=== PATIENT | female | born 1945 | race Caucasian/White ===

== ENCOUNTER 2018-03-02 07:09 | Day surgery (SDC) | payer MEDICARE, OTHER, SELFPAY ==
[2018-03-02] VITALS (9 sets, daily range): BP systolic 84–130; BP diastolic 49–67; PULSE 54–74; RESP 16; TEMP 36.1–36.6; O2SAT 96–100; BMI 37.8
--- NOTE | 2018-03-02 08:37 | PCM.OPRPT ---
Problem List (1) Sigmoid diverticulitis Status: Chronic Report of Operation Date of Procedure: 03/02/18 Pre-Operative Diagnosis: Recurrent sigmoid diverticulitis. Personal history of colon polyp Post-Operative Diagnosis: Extensive sigmoid diverticulosis Surgery/Procedure Performed:: Colonoscopy Description of Surgical Findings:: Timeout informed consent was obtained. 72-year-old female was taken to the endoscopy suite. She was placed in a left lateral decubitus position. She underwent monitored anesthesia care. Digital rectal exam performed. Lax anal tone. Moderate hemorrhoidal changes. Flexible colonoscope inserted the rectum advanced through a somewhat tortuous sigmoid colon scope was then nicely advanced to the transverse colon and with transabdominal pressure is advanced into the ascending colon and cecum. Bowel prep was quite good. The cecum ileocecal valve area was nicely achieved. The scope was carefully withdrawn from the cecum ascending colon transverse colon and descending colon. The sigmoid colon had extensive diverticulosis. I did not see any signs of acute inflammation. The scope was withdrawn to the rectum retroflex the anorectal verge inspected this did not appear to be remarkable. Excess fluid and air was aspirated free the procedure was completed with the patient tolerating it well. Impression Extensive sigmoid diverticulosis Patient with a history of multiple bouts of recurrent diverticulitis with subsequent antibiotic induced C. difficile colitis with recurrence of that as well. Consideration for possible future lap scopic sigmoid colectomy pending further rehabilitation Scope was inserted 0824. Cecum was reached at 0829. The procedure was completed at 0833. Cc: Dr. Omaira Maravilla M.D., F.A.C.S. Type of Anesthesia:: MAC
[2018-03-02 08:55] LABS: Bedside Glucose 177 mg/dL (70-110)
== END 2018-03-02 09:56 | disposition home or self-care (01) ==
LOC: EN 07:10 → AC 07:11
PROVIDERS: Family Provider Internal Medicine; PCP Internal Medicine; Visit Provider Surgery
PROC: 0DJD8ZZ Inspection of Lower Intestinal Tract, Via Natural or Artificial Opening Endoscopic (ICD-10-PCS; CPT 45378; principal; 2018-03-02 08:10)
DX: K57.30 Diverticulosis of large intestine without perforation or abscess without bleeding (principal); K56.2 Volvulus; E11.9 Type 2 diabetes mellitus without complications; F41.9 Anxiety disorder, unspecified; E78.00 Pure hypercholesterolemia, unspecified; I48.91 Unspecified atrial fibrillation; J45.909 Unspecified asthma, uncomplicated; K21.9 Gastro-esophageal reflux disease without esophagitis; R01.1 Cardiac murmur, unspecified; I11.9 Hypertensive heart disease without heart failure; M19.90 Unspecified osteoarthritis, unspecified site; Z95.1 Presence of aortocoronary bypass graft; Z87.19 Personal history of other diseases of the digestive system; Z90.49 Acquired absence of other specified parts of digestive tract; Z86.19 Personal history of other infectious and parasitic diseases; Z87.891 Personal history of nicotine dependence; Z79.4 Long term (current) use of insulin; Z79.01 Long term (current) use of anticoagulants; Z79.82 Long term (current) use of aspirin; Z79.899 Other long term (current) drug therapy
CPT/HCPCS: 45378; 82962; J7120

== ENCOUNTER 2018-04-16 05:26 | Inpatient (IN) | payer MEDICARE, OTHER, SELFPAY ==
[2018-04-09 15:32] VITALS: BP 129/56; PULSE 54; RESP 18; TEMP 36.4; O2SAT 97; BMI 38.7
[2018-04-09 17:06] LABS: Absolute Lymphocyte Count 2.05 X10^3/ul (0.83-4.51); Absolute Neutrophil Count 6.3 X10^3/uL (2.0-7.7); Basophil# 0.03 X10^3/uL; Basophil% 0.3 % (0-1); Eosinophil# 0.22 X10^3/uL; Eosinophils% 2.3 % (0-5); Hematocrit 39.1 % (37-47); Hemoglobin 12.9 g/dl (12.0-15.0); Lymphocyte # 2.05 X10^3/ul (4.0); Lymphocyte % 21.6 % (19-41); Mean Corpuscular Hgb 30.9 pg (27.0-32.0); Mean Corpuscular Volume 93.8 fL (81-99); Mean Platelet Vol. 10.2 fl (6.2-12.0); Monocyte# 0.84 X10^3/uL; Monocyte% 8.9 % (0-10); Neutrophil # 6.32 X10^3/uL (2.7-7.7); Neutrophil % 66.7 % (47-70); Platelet Count 195 K/mm3 (150-450); RBC Distribution Width CV 14.8 % (11.6-14.6); RBC Distribution Width SD 50.1 fl (35.1-43.9); Red Blood Count 4.17 M/mm3 (4.2-5.4); White Blood Count 9.5 K/mm3 (4.4-11.0)
[2018-04-09 17:07] LABS: International Normalized Ratio 2.6; Partial Thromboplast Time 38.8 Seconds (24.1-36.2); Prothrombin Time (Protime)PT. 27.6 SECONDS (11.7-14.9)
[2018-04-09 17:09] LABS: POSITIVE COUNT NO; POSITIVE DIFFERENTIAL NO; POSITIVE MORPHOLOGY NO
[2018-04-09 17:25] LABS: AST(SGOT) 26 U/L (15-37); Alanine Aminotransfer ALT/SGPT 33 U/L (13-56); Albumin, Serum 3.4 g/dL (3.2-5.0); Alkaline Phosphatase 113 U/L (45-117); Anion Gap 6 (5-15); BUN 23 mg/dL (7-18); BUN/Creat Ratio 23.1 RATIO (10-20); Bilirubin, Direct 0.28 mg/dL (0.00-0.30); Calcium,Total 9.1 mg/dL (8.5-10.1); Chloride 106 mmol/L (98-107); EST Glomerular Filtration Rate 58 mL/min (>60); Est Glom Filt Rate - Afr Amer 71 mL/min (>60); Estimated Creatinine Clearance 37.06 ml/min; Globulin 3.9 g/dL (2.2-4.2); Glucose 104 mg/dL (74-106); Potassium 3.9 mmol/L (3.5-5.1); Protein, Total 7.3 g/dL (6.4-8.2); Sodium Level 140 mmol/L (136-145)
[2018-04-09 17:54] LABS: Hemoglobin A1c 6.1 % (4.2-6.3)
[2018-04-16] VITALS (13 sets, daily range): BP systolic 103–132; BP diastolic 47–70; PULSE 65–86; RESP 14–18; TEMP 36–36.9; O2SAT 96–100; BMI 38.7
--- NOTE | 2018-04-16 | COL_PTH ---
PATIENT: CARMEN HARVEY LOC: MS2 U#:[id number] AGE/SX: 72/F ROOM: [facility] [place] RE04/16/[address]: Dr. Carlos Maravilla MD : 1945 BED: 1 DIS: 04/18/2018 SPEC #: [id number] RECD: 04/16/18 14:41 STATUS: RUTH REQ #: [id number] PEE: 04/16/18 00:[address]: Carlos Maravilla DEPT: SURGICAL PATHOLOGY RECD BY: Familia Barrera ENTERED: 04/16/18 14:41 SP TYPE: COLON OTHR DR: MD Dr. Lorena Zafar MD Tissues: A - Colon, NOS B - Colon Donuts C - Colon Donuts Procedures: Surgery Specimen Level III Surgery Specimen Level V HEADER OPERATION: Laparoscopic, sigmoid colectomy PRE-OP DIAGNOSIS: Chronic recurrent sigmoid diverticulitis, recurrent clostridium difficile TISSUE SUBMITTED: A. Sigmoid colon, B. Rectal donut, C. Sigmoid donut MICROSCOPIC DIAGNOSIS A. Sigmoid colon, segmental colectomy: Nonruptured diverticular disease of colon. Margins of excision with no significant pathologic change. One out of one benign lymph node. B. Rectal donut, excision: No significant pathologic change. C. Sigmoid donut, excision: No significant pathologic change. AM: 04/19/18 MICROSCOPIC DESCRIPTION Slides are reviewed. GROSS DESCRIPTION A - Received in fixative is one container labeled with the patient's name and designated sigmoid colon. The specimen consists of a 16 cm segment of bowel with attached fibrofatty tissue. One end is stapled and the other mucosal end is not stapled. The mucosa is thrown into normal folds. No mucosal mass lesions are identified. / AM: 04/16/18 Serial sections reveal multiple diverticula, none of which appear to have perforated through the bowel wall. Aircraft Maintenance Manager sections are submitted as follows: 1 ? open end of bowel, 2 ? closed end of bowel, 36 ? diverticula, 7 ? retail representative lymph nodes. / AM: 04/17/18 B - Received in fixative is one container labeled with the patient's name and designated rectal donut. The specimen consists of a mucosal donut measuring 1.5 x 1 x 0.8 cm. The specimen is bisected and totally submitted in one cassette. / AM: 04/16/18 C - Received in fixative is one container labeled with the patient's name and designated sigmoid donut. The specimen consists of a mucosal donut measuring 1.5 cm in diameter and 1 cm in thickness. Aircraft Maintenance Manager sections are submitted in one cassettes. / YAZMIN:shital 04/16/18 TC:3 CPT: 65354, 35683 x2
[2018-04-16] MEDS: Gabapentin 600 MG Tablet PO (06:03)
[2018-04-16] MEDS: Acetaminophen 500 MG Tablet 1000 MG PO ×2 (06:03→15:44)
[2018-04-16 06:06] LABS: Bedside Glucose 237 mg/dL (70-110)
[2018-04-16 06:21] LABS: Prothrombin Time Fingerstick 14.7 SEC (11.9-14.4)
[2018-04-16] MEDS: Insulin Lispro 100 UNIT/ML INSULN.PEN SC ×2 (06:44→11:31)
[2018-04-16] MEDS: Bupivacaine Mpf 0.5% 30 ML VIAL (06:59)
--- NOTE | 2018-04-16 07:04 | PCM.DC.GS ---
Discharge Diet: Light diet - advance as tolerated - if you have questions about your diet instructions, please talk to you doctor. Discharge Activity: May Not Drive - for 1 week or while taking narcotic pain medicine. May shower in (days): 1 Lifting Restrictions: 10 pounds Call your doctor if your incision/area has: Continuous Slow Oozing, Sudden Increased Bleeding, Increased Pain/ Swelling, Increased Redness, Foul Smelling Discharge Call your doctor if you observe: Fever of 101 or Higher Suture Line Care: Avoid Pulling/Pushing, Avoid Pinching/Bending Additional Dressing/Incision Instructions:: Change or remove dressing in 2 days. Leave steri-strips in place for 1 week. Allergies/Adverse Reactions: Allergies codeine Allergy (Unknown, Verified 04/09/18 15:16) Unknown hydrocodone [From [place]] Allergy (Unknown, Verified 04/09/18 15:16) Unknown Iodinated Contrast- Oral and IV Dye Allergy (Unknown, Verified 04/09/18 15:16) Unknown morphine Allergy (Unknown, Verified 04/09/18 15:16) Unknown nitrofurantoin [From Macrodantin] Allergy (Unknown, Verified 04/09/18 15:16) Unknown tramadol Allergy (Unknown, Verified 04/09/18 15:16) Unknown Medications to take at Discharge ascorbic acid (vitamin C) 250 mg tablet 250 mg PO QDAY 12/22/17 aspirin 81 mg tablet,delayed release 81 mg PO QDAY 12/22/17 atorvastatin 40 mg tablet 40 mg PO QDAY 12/22/17 biotin 2,500 mcg capsule 5 mg PO ONCE cap 12/22/17 calcium carbonate-vitamin D3 600 mg (1,500 mg)-500 unit capsule 1,500 mg PO DAILY 12/22/17 famotidine 10 mg tablet 10 mg PO BID tab 12/22/17 folic acid 400 mcg tablet 0.4 mg PO QDAY 12/22/17 insulin NPH human semi-synthetic 100 unit/mL subcutaneous cartridge 50 unit SC BID 12/22/17 insulin U-100 regular human 100 unit/mL injection solution 5 unit IM PRN PRN 12/22/17 lactobacillus combination no.9 4 billion cell capsule 4,000 mmu cells PO QDAY 12/22/17 lorazepam 0.5 mg tablet 0.5 mg PO BID-TID 12/22/17 losartan 100 mg tablet 100 mg PO QDAY 12/22/17 magnesium oxide 400 mg capsule 400 mg PO QDAY cap 12/22/17 montelukast 10 mg tablet 10 mg PO QPM 12/22/17 potassium chloride 20 mEq oral packet 20 meq PO BID 12/22/17 pyridoxine (vitamin B6) 50 mg capsule 50 mg PO QDAY 12/22/17 sotalol 120 mg tablet 120 mg PO Q12H 12/22/17 triamterene 50 mg-hydrochlorothiazide 25 mg capsule 1 cap PO QDAY 12/22/17 vitamin B complex tablet 1 tab PO QDAY 12/22/17 warfarin 1 mg tablet 1 mg PO QDAY 12/22/17 warfarin 2.5 mg tablet 2.5 mg PO QDAY 12/22/17 sucralfate 1 gram tablet 1 g PO Q6H 03/28/18 Primary Care Physician: Marichuy Castano [Primary Care Provider] - Test Results: Test results from this visit will be discussed in further detail at your follow-up appointment, if applicable. Please Follow Up With: Carlos Maravilla MD - [phone] When: Call to make an appointment to be seen in about 10 days.
[2018-04-16] MEDS: Lidocaine/D5W 2,000 MG/250 ML IV.SOLN 27 MG IV (07:15)
[2018-04-16] MEDS: Lidocaine/D5W 2,000 MG/250 ML IV.SOLN 2000 MG (07:50)
--- NOTE | 2018-04-16 07:59 | PCM.OPRPT ---
Report of Operation Date of Procedure: 04/16/18 Pre-Operative Diagnosis: Recurrent diverticulitis Post-Operative Diagnosis: Same Surgery/Procedure Performed:: Cystoscopy and placement of a left ureteral catheter Description of Surgical Findings:: 72-year-old female was undergoing a colon resection for recurrent diverticulitis, general surgeon is requested to place a catheter in the left ureter to assist with the case. 72-year-old female taken back to the operating of this with induction of general anesthesia she was placed in dorsolithotomy position the urethra and vaginal area were prepped and draped in usual fashion, went into the bladder the 21 Irish rigid cystourethroscope no tumors identified within the bladder trigone is normal I think cannulated the left ureteral orifice with a Glidewire and a Pollack catheter, advanced the Pollack catheter all the way up to the kidney about 20 cm. I then put a catheter in the bladder drain the bladder secured the Pollack catheter to the drain. Patient was then turned over to the general surgeon. Type of Anesthesia:: General Drains: ureteral cath - Admit VTE Documentation VTE Present on Admission: No VTE Mechan Device Prophylaxis: SCD's
[2018-04-16] MEDS: Lubricating Jelly 60 GM Tube 30 GM TOPICAL (09:11)
[2018-04-16 09:16] LABS: Bedside Glucose 190 mg/dL (70-110)
[2018-04-16] MEDS: BUPIVACAINE LIPOSOME/PF 20 ML VIAL OPERA.SITE (10:35)
--- NOTE | 2018-04-16 10:48 | OP.PCM_ITS ---
Problem List (1) Sigmoid diverticulitis Status: Chronic Report of Operation Date of Procedure: 04/16/18 Pre-Operative Diagnosis: Recurrent diverticulitis Post-Operative Diagnosis: Same Surgery/Procedure Performed:: Laparoscopic sigmoid colectomy Description of Surgical Findings:: Timeout and informed consent was obtained. 72-year-old female taken the operating. She was placed in a low lithotomy position. She received 2 g of Cefotan [address] Short performed a cystoscopy and left ureteral catheter placement. Subsequently the abdomen and perineum were prepped. ChloraPrep was used for the abdomen and shampoo was used for the perineum because of iodine allergy. Her plastic drapes were placed to assist with holding of the drapes. 0.5% Marcaine was used as a local anesthetic of the procedure total 16 cc was used. Skin sites were pre-anesthetized. To the right of the umbilicus 5 mm incision was created and using a Visiport technology access was gained to the abdomen. The abdomen was insufflated CO2 to a pressure 10 mmHg pressure. 2 additional five-minute trochars were placed in the right lower quadrant. Later in the case I made a transverse suprapubic incision and a 10 minute trocar was placed. The abdomen was inspected there were dense adhesions of omentum to the anterior abdominal wall in the infraumbilical position. These had to initially be lysed using the Enseal device. Hemostasis was intact. This allowed for mobilization of the omentum then up out of the pelvis. The sigmoid colon had some adhesions to the left pelvic sidewall. Scalp at the site of inflammation was more in the mid sigmoid colon descending and more proximal sigmoid colon appear to be free of disease. The small bowel was placed back up higher in the abdomen is the patient was placed in Trendelenburg position. A opening was made in the sigmoid colon mesentery using the Enseal device. Great care was then taken to incise the white line of Toldt all the way from the pelvis all the way up to the left upper quadrant. I felt at this point that I had good laxity of the sigmoid colon to allow for an appropriate resection. The mesenteric dissection was carried down to the pelvic brim. Through the suprapubic trocar a 45 mm green load Newborn stapler was inserted and with 1 firing the bowel was transected. Hemostasis was intact. Subsequently the transverse suprapubic incision was slightly enlarged and a small wound protector was placed. The sigmoid colon was exited at that spot. An appropriate point the sigmoid colon was transected. A lip suture of 2-0 Prolene was placed in the end of the sigmoid and then a 29 mm circular anastomotic stapler anvil was inserted and secured with Prolene. That was struck back within the abdomen. The rectum was irrigated with saline. Then using sizers was plenty of lubrication allowed for inspection and I was able to place the 29 mm stapler per rectum. The staple line was more posteriorly so I exited through the anterior portion of the rectum was sigmoid area. The trocar was exited. It was easily attached to the anvil absolutely no tension tube. The tube were nicely approximated. The device was fired. The device was released the donuts were inspected complete rectal and sigmoid donuts were identified. Rigid sigmoidoscopy demonstrated that the anastomosis was widely patent. Air was insufflated with absolutely no evidence of any air leak. At this point trochars were removed under visualization and the abdomen was allowed to deflate of the CO2. Gowns and gloves were changed. The suprapubic site which had been lengthened to a small mini Pfannenstiel incision earlier with transection of the rectus transversely and then the posterior peritoneum vertically was now approximated in reverse order approximately the peritoneum with a running 0 Vicryl. The anterior rectus was closed with a running 0 PDS. It is of additional note that during the initiation of the procedure a tap block was performed before any dissection was formed. This was done with Exparel diluted to 100 cc with saline. This was performed bilaterally. [place] that I had good block performed bilaterally all the way down to the issue. Remaining Exparel was used to inject at the end of the procedure around the fascia at the suprapubic site and then insights as well. The skin wounds were closed with interrupted 4-0 Monocryl running subcuticular stitch and interrupted sutures. Steri-Strips Telfa and OpSite dressings were applied. Sponge and instrument and needle counts were reported to the surgeon to be correct. Blood loss was actually quite minimal. Specimens include sigmoid colon as well as donuts. Drains none. Blood loss quite minimal. She was taken to the recovery area in satisfactory condition without apparent complication. Carlos Maravilla M.D., F.A.C.S. Type of Anesthesia:: General Anesthesiologist: Tangela Rushing Drains: ureteral cath
[2018-04-16 11:35] LABS: Bedside Glucose 226 mg/dL (70-110)
--- NOTE | 2018-04-16 13:02 | PCM.CONS.GEN ---
Problem List (1) Sigmoid diverticulitis Status: Chronic Reason for Consult Date of Consultation: 04/16/18 Reason for Consultation: medical management History of Present Illness: The patient is a 72 year old F with a history of diverticulosis, A. fib, hypertension diabetes. She was admitted for laparoscopic sigmoidectomy due to severe diverticulitis and also had cystoscopy with placement of ureteral stent. Today's postop day 0. Hospitalist service was consulted for medical management. Patient seen and examined. She had no complaints. Daughter and by her bedside. She denied any fever or chills, any cough or chest pain, any shortness of breath, abdominal pain, any diarrhea vomiting. 12 point Review of systems is otherwise negative. Labs and vitals were reviewed. Coumadin was stopped 5 days prior to admission and she did not receive any bridging with Lovenox. [] Past Medical History Past Medical History (Chronic Problems): Chronic Problems (Last Reviewed 03/28/18 @ 15:47 by Yeimy Everett) Sigmoid diverticulitis (Chronic) Medical History: Medical History (Last Reviewed 03/28/18 @ 15:47 by Yeimy Everett) Diverticulitis (Acute) K57.92 Hx of Clostridium difficile infection (Acute) Z86.19 Hemorrhoids (Acute) K64.9 Acid reflux (Acute) K21.9 Diarrhea (Acute) R19.7 Nausea (Acute) R11.0 Asthma (Acute) J45.909 Sleep apnea (Acute) G47.30 A-fib (Acute) I48.91 Heart disease (Acute) I51.9 Heart murmur (Acute) R01.1 Arthritis (Acute) M19.90 Back problem (Acute) M53.9 Diabetes (Acute) E11.9 Fatigue (Acute) R53.83 Allergies codeine Allergy (Unknown, Verified 04/09/18 15:16) Unknown hydrocodone [From [place]] Allergy (Unknown, Verified 04/09/18 15:16) Unknown Iodinated Contrast- Oral and IV Dye Allergy (Unknown, Verified 04/09/18 15:16) Unknown morphine Allergy (Unknown, Verified 04/09/18 15:16) Unknown nitrofurantoin [From Macrodantin] Allergy (Unknown, Verified 04/09/18 15:16) Unknown tramadol Allergy (Unknown, Verified 04/09/18 15:16) Unknown Home Medications: Ambulatory Orders Medication Instructions Recorded ascorbic acid (vitamin C) 250 mg 250 mg PO QDAY 12/22/17 tablet aspirin 81 mg tablet,delayed 81 mg PO QDAY 12/22/17 release atorvastatin 40 mg tablet 40 mg PO QDAY 12/22/17 biotin 2,500 mcg capsule 5 mg PO ONCE cap 12/22/17 calcium carbonate-vitamin D3 600 1,500 mg PO DAILY 12/22/17 mg (1,500 mg)-500 unit capsule famotidine 10 mg tablet 10 mg PO BID tab 12/22/17 folic acid 400 mcg tablet 0.4 mg PO QDAY 12/22/17 insulin NPH human semi-synthetic 50 unit SC BID 12/22/17 100 unit/mL subcutaneous cartridge insulin U-100 regular human 100 5 unit IM PRN PRN 12/22/17 unit/mL injection solution lactobacillus combination no.9 4 4,000 mmu cells PO QDAY 12/22/17 billion cell capsule lorazepam 0.5 mg tablet 0.5 mg PO BID-TID 12/22/17 losartan 100 mg tablet 100 mg PO QDAY 12/22/17 magnesium oxide 400 mg capsule 400 mg PO QDAY cap 12/22/17 montelukast 10 mg tablet 10 mg PO QPM 12/22/17 potassium chloride 20 mEq oral 20 meq PO BID 12/22/17 packet pyridoxine (vitamin B6) 50 mg 50 mg PO QDAY 12/22/17 capsule sotalol 120 mg tablet 120 mg PO Q12H 12/22/17 triamterene 50 1 cap PO QDAY 12/22/17 mg-hydrochlorothiazide 25 mg capsule vitamin B complex tablet 1 tab PO QDAY 12/22/17 warfarin 1 mg tablet 1 mg PO QDAY 12/22/17 warfarin 2.5 mg tablet 2.5 mg PO QDAY 12/22/17 sucralfate 1 gram tablet 1 g PO Q6H 03/28/18 Surgical History: Surgical History (Last Reviewed 03/28/18 @ 15:47 by Yeimy Everett) Hx of bilateral cataract extraction (Acute) Z98.41, Z98.42 2012 Hx of cardiac cath (Acute) Z98.890 05/2017 History of surgery on arm (Acute) Z98.890 Left arm- 2006 History of shoulder surgery (Acute) Z98.890 Left shoulder partial replacement- 2006 Hx of breast surgery (Acute) Z98.890 Right breast-2002 Hx of breast biopsy (Acute) Z98.890 bilaterally- 2002 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 Psychiatric History: No pertinent psych hx Lives: Spouse/ Significant Other Smoking Status: Former smoker Alcohol: None Drugs: None - *Family History Maternal Family History: Family History (Last Reviewed 03/28/18 @ 15:47 by Yeimy Everett) Mother Diabetes Hypertension Heart disease Hyperlipidemia Father Heart disease Diabetes Hyperlipidemia Daughter Seizures Sister CVA (cerebral vascular accident) Review of Systems Constitutional: Denies: Chills, Fever, Weight Change Eyes: Denies: Blurred vision HEENT: Denies: Head Aches, Sinus Congestion, Sinus Drainage Cardiovascular: Denies: Chest Pain, Edema, Palpitations, Syncope Respiratory: Denies: Cough, Shortness of Breath, Shortness of breath at rest, Shortness of breath upon exertion, Sputum production, Wheezing Gastrointestinal: Denies: Abdominal Pain, Nausea, Vomiting Genitourinary: Denies: Dysuria Musculoskeletal: Denies: Joint Pain, Joint Tenderness Skin: Denies: Rash, Wounds Neurological: Denies: Numbness, Tingling, Focal weakness Psychiatric: Denies: Anxiety, Depression, Homicidal Ideations, Suicidal Ideations Hematologic/ Lymphatic: Denies: Easy Bruising, Easy Bleeding - Physical Exam General: Alert - slightly drowsy, Oriented x3, Cooperative, No apparent distress HEENT: Atraumatic, PERRLA, EOMI, Normocephalic Oral: Moist Mucosa Neck: Supple, No JVD, Negative Carotid Bruits Lungs: Clear to auscultation, Normal air movement, No rhonchi, No wheeze, No rales Cardiovascular: Regular rate, Regular Rhythm - rate and rhythm controlled, Normal S1, Normal S2, No murmurs Abdomen: Bowel Sounds Present, Soft, Non Tender, - - clean laparoscopic incision. Extremities: No clubbing, No cyanosis, No edema, Capillary Refill Less than 3 Seconds Skin: No rashes, No breakdown Musculoskeletal: No Tenderness to Palpation of Joints or Extremities Lymphatic: No Cervical, Supraclavicular, or Inguinal Adenopathy Neurological: Cranial nerves II-XII grossly intact, Motor Exam 5/5 strength throughout Psych/Mental Status: Normal Affect, Appropriate, Alert and oriented to time, place, person, mood and affect Vital Signs Temp Pulse Resp BP Pulse Ox 96.8 F L 70 14 110/50 L 100 04/16/18 12:46 04/16/18 12:46 04/16/18 12:46 04/16/18 12:46 04/16/18 12:46 Oxygen Flow Rate (L/min) 6 Oxygen Delivery Method Nasal Cannula Weight: 198 lb 6.656 oz Body Mass Index (BMI) 38.7 Finger Stick Blood Glucose 226 Intake and Output for Last 24 Hours 04/14/18 04/15/18 04/16/18 23:59 23:59 23:59 Intake Total 1700 / 1700 Output Total 20 / 20 Balance 1680 / 1680 Laboratory Tests Past 24 Hrs 04/16/18 06:15 POC PT 14.7 H INR 1.20 POC Glucose 04/16/18 04/16/18 04/16/18 11:29 09:08 05:47 POC Glucose 226 H 190 H 237 H Assessment/Plan All Active Problems (Last Reviewed 03/28/18 @ 15:47 by Yeimy Everett) Hx of bilateral cataract extraction (Acute) Hx of cardiac cath (Acute) History of surgery on arm (Acute) History of shoulder surgery (Acute) Hx of breast surgery (Acute) Hx of breast biopsy (Acute) Hx of CABG (Acute) Hx of hysterectomy (Acute) Hx of cholecystectomy (Acute) Hx of tubal ligation (Acute) Diverticulitis (Acute) Hx of Clostridium difficile infection (Acute) Hemorrhoids (Acute) Acid reflux (Acute) Diarrhea (Acute) Nausea (Acute) Asthma (Acute) Sleep apnea (Acute) A-fib (Acute) Heart disease (Acute) Heart murmur (Acute) Arthritis (Acute) Back problem (Acute) Diabetes (Acute) Fatigue (Acute) 1. Sigmoid diverticulosis s/p sigmoidectomy today is POD 0 has no complaints. management as per general surgery aggressive use of incentive spirometer 2. Diabetes mellitus Novolin insulin 50 units twice daily and insulin sliding scale with Humulin at home Will hold home insulin and start n.p.o. sliding scale as patient is currently postsurgery. To resume home insulin dose once she starts eating. accuchecks q6 till she starts oral intake, then switch to ACHS 3. Benign essential hypertension BP is 110/50 at time of review on losartan 100mg daily and Maxzide. Not on any beta jose, no allrgey documented. Not sure why will monitor BP for now, as it is running on the low side. to resume losartan tomorrow if BP is stable 4. Afib currently rate and rhythm controlled on sotalol. Coumadin has been on hold for the past 5 days o/a of surgery continue holding for now; will discuss with surgery about when to resume on sotalol 5. DVT prophylaxis: lovenox, per surgery Thank you for the courtesy of the consult. We will continue to follow with you. This note was generated with [employer] dictation software. It may contain incorrect words, spelling, and punctuation that were not noted in checking the note before signing. Code Visit Inpatient E&M: 74063 Subs Hosp L3
[2018-04-16] MEDS: Ondansetron ODT 4 MG Tablet PO (13:57)
--- NOTE | 2018-04-16 15:41 | NURSING ---
Offered to get patient to chair at this time. She states she is very dizzy and would like to just sit up higher in the bed at this time. Liquids offered, patient taking sips of soda at this time. Will attempt to get up to chair at a later time.
[2018-04-16 17:30] LABS: Bedside Glucose 298 mg/dL (70-110)
[2018-04-16] MEDS: Sucralfate 1 GM Tablet PO ×2 (17:31→21:51)
[2018-04-16] MEDS: Ketorolac 15 MG/ML Vial IV ×2 (17:34→21:54)
[2018-04-16] MEDS: Insulin Lispro 100 UNIT/ML INSULN.PEN SQ ×2 (17:35→23:59)
[2018-04-16] MEDS: 0.9% NaCl Peripheral Flush Adult/Peds IV (17:35)
[2018-04-16] MEDS: Sotalol Hydrochloride 80 MG Tablet 120 MG PO (21:49)
[2018-04-16] MEDS: Montelukast 10 MG Tablet PO (21:51)
[2018-04-16] MEDS: Docusate Sodium 100 MG Capsule PO (21:52)
[2018-04-16] MEDS: Atorvastatin Calcium 40 MG Tablet PO (21:53)
[2018-04-16] MEDS: Famotidine 20 MG Tablet 10 MG PO (21:53)
[2018-04-16] MEDS: Meclizine 12.5 MG Tablet PO (22:34)
[2018-04-16] MEDS: Lactated Ringers 1,000 ML 40 ML IV (23:57)
[2018-04-17] MEDS: Acetaminophen 500 MG Tablet 1000 MG PO ×4 (00:01→19:13)
[2018-04-17 00:21] LABS: Bedside Glucose 251 mg/dL (70-110)
--- NOTE | 2018-04-17 00:34 | NURSING ---
Patient encouraged to increase mobility multiple times; patient was able to sit at side of bed for 10 minutes but unable to stand due to continued dizziness.
[2018-04-17 03:30] VITALS: BP 103/36; PULSE 63; RESP 16; TEMP 36.6; O2SAT 97
[2018-04-17] MEDS: Ketorolac 15 MG/ML Vial IV ×4 (04:51→22:33)
--- NOTE | 2018-04-17 04:51 | NURSING ---
PATIENT WALKED IN [place], 100 FEET, C/O LITTLE DIZZINESS STATING THE DIZZINESS IS A LOT BETTER THAN LAST NIGHT. NEEDS ENCOURAGEMENT. PATIENT SITTING UP IN CHAIR WITH NO C/O PAIN, DENIES ANY ADDITIONAL NEEDS.
--- NOTE | 2018-04-17 05:31 | PCM.PN.SRG ---
Subjective: No pain, no nausea Dizzy from scopolamine but improving - Physical Exam Lungs: Clear to auscultation Abdomen: Soft, Non Tender Vital Signs Temp Pulse Resp BP Pulse Ox 97.9 F 63 16 103/36 L 97 04/17/18 03:30 04/17/18 03:30 04/17/18 03:30 04/17/18 03:30 04/17/18 03:30 Oxygen Flow Rate (L/min) 2 Oxygen Delivery Method Room Air Weight: 198 lb 6.656 oz Body Mass Index (BMI) 38.7 Finger Stick Blood Glucose 226 Intake and Output for Last 24 Hours 04/15/18 04/16/18 04/17/18 23:59 23:59 23:59 Intake Total 2029 / 2029 1926 / 1926 Output Total 185 / 185 350 / 350 Balance 1845 / 1845 1576 / 1576 Laboratory Tests Past 24 Hrs 04/16/18 06:15 POC PT 14.7 H INR 1.20 POC Glucose 04/16/18 04/16/18 04/16/18 23:55 17:29 11:29 POC Glucose 251 H 298 H 226 H 04/16/18 04/16/18 09:08 05:47 POC Glucose 190 H 237 H Medical Necessity - Tobacco Use Smoking Status: Former smoker Assessment/Plan All Active Problems (Last Reviewed 03/28/18 @ 15:47 by Yeimy Everett) Hx of bilateral cataract extraction (Acute) Hx of cardiac cath (Acute) History of surgery on arm (Acute) History of shoulder surgery (Acute) Hx of breast surgery (Acute) Hx of breast biopsy (Acute) Hx of CABG (Acute) Hx of hysterectomy (Acute) Hx of cholecystectomy (Acute) Hx of tubal ligation (Acute) Diverticulitis (Acute) Hx of Clostridium difficile infection (Acute) Hemorrhoids (Acute) Acid reflux (Acute) Diarrhea (Acute) Nausea (Acute) Asthma (Acute) Sleep apnea (Acute) A-fib (Acute) Heart disease (Acute) Heart murmur (Acute) Arthritis (Acute) Back problem (Acute) Diabetes (Acute) Fatigue (Acute) Will dc samson and ivf Need to mobilize pt Hopeful discharge soon
[2018-04-17] MEDS: Insulin Lispro 100 UNIT/ML INSULN.PEN SQ ×4 (05:54→22:47)
[2018-04-17] MEDS: Sucralfate 1 GM Tablet PO ×4 (06:01→22:34)
[2018-04-17 06:05] LABS: Bedside Glucose 258 mg/dL (70-110)
[2018-04-17 07:06] LABS: Hematocrit 33.5 % (37-47); Hemoglobin 11.5 g/dl (12.0-15.0); Mean Corp Hgb Conc 34.3 g/gl (32-36); Mean Corpuscular Volume 93.3 fL (81-99); Mean Platelet Vol. 9.8 fl (6.2-12.0); Platelet Count 172 K/mm3 (150-450); RBC Distribution Width CV 14.3 % (11.6-14.6); RBC Distribution Width SD 48.2 fl (35.1-43.9); Red Blood Count 3.59 M/mm3 (4.2-5.4); White Blood Count 13.8 K/mm3 (4.4-11.0)
[2018-04-17 07:07] LABS: Scan Indicated on CBC? Y/N NO
[2018-04-17 07:26] VITALS: O2SAT 95
[2018-04-17 07:37] LABS: Anion Gap 12 (5-15); BUN 23 mg/dL (7-18); BUN/Creat Ratio 15.2 RATIO (10-20); Calcium,Total 8.2 mg/dL (8.5-10.1); Chloride 100 mmol/L (98-107); Creatinine, Serum 1.51 mg/dL (0.55-1.02); EST Glomerular Filtration Rate 36 mL/min (>60); Est Glom Filt Rate - Afr Amer 44 mL/min (>60); Estimated Creatinine Clearance 24.55 ml/min; Glucose 227 mg/dL (74-106); Potassium 3.9 mmol/L (3.5-5.1); Sodium Level 139 mmol/L (136-145)
[2018-04-17 08:40] VITALS: BP 118/56; PULSE 49; RESP 18; TEMP 36.5; O2SAT 98
[2018-04-17] MEDS: Aspirin E.C. 81 MG Tablet PO (08:40)
--- NOTE | 2018-04-17 09:53 | PCM.PN.HOSP ---
Subjective: Seen and examined. She feels well and has no complaints. She had an uneventful night. She denies any fever chills, any cough or chest pain, shortness of breath, abdominal pain, any diarrhea vomiting. She is passing gas. Review of systems otherwise negative. Tolerated clear liquid diet today and is likely going to be advanced per general surgery today. Vitals/I&O's: Vital Signs Temp Pulse Resp BP Pulse Ox 97.9 F 63 16 103/36 L 95 04/17/18 03:30 04/17/18 03:30 04/17/18 03:30 04/17/18 03:30 04/17/18 07:26 Oxygen Flow Rate (L/min) 2 Oxygen Delivery Method Room Air Weight: 198 lb 6.656 oz Body Mass Index (BMI) 38.7 Finger Stick Blood Glucose 226 Intake and Output for Last 24 Hours 04/15/18 04/16/18 04/17/18 23:59 23:59 23:59 Intake Total 2029 / 2029 1926 / 1926 Output Total 185 / 185 400 / 400 Balance 1845 / 1845 1526 / 1526 General: Alert, Oriented x3, Cooperative, No apparent distress HEENT: Atraumatic, PERRLA, EOMI, Normocephalic Oral: Moist Mucosa Neck: Supple, No JVD, Negative Carotid Bruits Lungs: Clear to auscultation, Normal air movement, No rhonchi, No wheeze, No rales Cardiovascular: Normal S1, Normal S2, No murmurs, - - Irregularly regular rhythm, rate controlled. Abdomen: Bowel Sounds Present, Soft, Non Tender, Non-Distended, No Hepato-splenomegaly, - - Clean dressing over arthroscopic incisions. Extremities: No clubbing, No cyanosis, No edema, Capillary Refill Less than 3 Seconds Skin: No rashes, No breakdown Musculoskeletal: No Tenderness to Palpation of Joints or Extremities Lymphatic: No Cervical, Supraclavicular, or Inguinal Adenopathy Neurological: Cranial nerves II-XII grossly intact, Motor Exam 5/5 strength throughout Psych/Mental Status: Normal Affect, Appropriate, Alert and oriented to time, place, person, mood and affect Laboratory Results 04/16/18 11:29: POC Glucose 226 H 04/16/18 17:29: POC Glucose 298 H 04/16/18 23:55: POC Glucose 251 H 04/17/18 05:52: POC Glucose 258 H 04/17/18 06:23: WBC 13.8 H, RBC 3.59 L, Hgb 11.5 L, Hct 33.5 L, MCV 93.3, MCH 32.0, MCHC 34.3, RDW 14.3, RDW Differential 48.2 H, Plt Count 172, MPV 9.8 04/17/18 06:23: Sodium 139, Potassium 3.9, Chloride 100, Carbon Dioxide 27.0, Anion Gap 12, BUN 23 H, Creatinine 1.51 H, Estim Creat Clear Calc 24.55, Est GFR (MDRD) Af Amer 44 L, Est GFR (MDRD) Non-Af 36 L, BUN/Creatinine Ratio 15.2, Glucose 227 H, Calcium 8.2 L Current Medications Acetaminophen (Tylenol) 1,000 mg PO Q6 [facility] Last Admin: 04/17/18 05:55 Dose: 1,000 mg [facility]) [facility] Last Admin: 04/17/18 08:40 Dose: 81 mg Atorvastatin Calcium (Lipitor) 40 mg PO QHS [facility] Last Admin: 04/16/18 21:53 Dose: 40 mg Dextrose (D50w Syringe) 0 gm IV X1 PRN; Protocol PRN Reason: Hypoglycemia Docusate Sodium (Colace) 100 mg PO BID [facility] Last Admin: 04/16/18 21:52 Dose: 100 mg Enoxaparin Sodium (Lovenox) 40 mg SC DAILY [facility] Famotidine (Pepcid) 10 mg PO BID [facility] Last Admin: 04/16/18 21:53 Dose: 10 mg Glucagon () 1 mg IM .X1 PRN PRN Reason: Hypoglycemia Insulin Human Lispro (Humalog Kwikpen (Bkc)) 0 unit SQ Q6 [facility] PRN Reason: Protocol Last Admin: 04/17/18 05:54 Dose: 3 units Ketorolac Tromethamine (Toradol) 15 mg IV Q6H [facility] Stop: 04/17/18 22:31 Last Admin: 04/17/18 04:51 Dose: 15 mg Losartan Potassium (Cozaar) 100 mg PO DAILY [facility] Magnesium Oxide (Mag-Ox 400) 400 mg PO DAILY [facility] Meclizine HCl (Antivert) 12.5 mg PO Q6H PRN PRN Reason: DIZZINESS Last Admin: 04/16/18 22:34 Dose: 12.5 mg Montelukast Sodium (Singulair) 10 mg PO QPM [facility] Last Admin: 04/16/18 21:51 Dose: 10 mg Non-Formulary Medication (Triamterene/Hydrochlorothiazid [Triamterene-Hctz 50-25 Mg Cap]) 1 cap PO QDAY [facility] Ondansetron HCl (Zofran Odt) 4 mg PO Q6H PRN PRN PRN Reason: NAUSEA Last Admin: 04/16/18 13:57 Dose: 4 mg Potassium Chloride (K-Dur) 20 meq PO BID [facility] Last Admin: 04/16/18 21:52 Dose: 20 meq Sodium Chloride () 5 - 30 ml IV UD PRN PRN Reason: SALINE FLUSH Last Admin: 04/16/18 17:35 Dose: 10 ml Sotalol HCl (Betapace (G)) 120 mg PO Q12 [facility] Last Admin: 04/16/18 21:49 Dose: 120 mg Sucralfate (Carafate) 1 gm PO 1HR_ACHS [facility] Last Admin: 04/17/18 06:01 Dose: 1 gm Medical Necessity - Tobacco Use Smoking Status: Former smoker Assessment/Plan All Active Problems (Last Reviewed 03/28/18 @ 15:47 by Yeimy Everett) Hx of bilateral cataract extraction (Acute) Hx of cardiac cath (Acute) History of surgery on arm (Acute) History of shoulder surgery (Acute) Hx of breast surgery (Acute) Hx of breast biopsy (Acute) Hx of CABG (Acute) Hx of hysterectomy (Acute) Hx of cholecystectomy (Acute) Hx of tubal ligation (Acute) Diverticulitis (Acute) Hx of Clostridium difficile infection (Acute) Hemorrhoids (Acute) Acid reflux (Acute) Diarrhea (Acute) Nausea (Acute) Asthma (Acute) Sleep apnea (Acute) A-fib (Acute) Heart disease (Acute) Heart murmur (Acute) Arthritis (Acute) Back problem (Acute) Diabetes (Acute) Fatigue (Acute) 1. Sigmoid diverticulosis s/p sigmoidectomy today is POD 1 had some nausea overnight which has resolved. management as per general surgery aggressive use of incentive spirometer 2. ADIS Cr up to 1.51, was 1.0 yesterday likely pre-renal due to decreased intake, as she was NPO after surgery. will hydrate with IVF and monitor 3. Diabetes mellitus Novolin insulin 50 units twice daily and insulin sliding scale with Humulin at home will resume novolin insulin 50IU bid today and continue ISS accuchecks ACHS 4. Benign essential hypertension BP has been in 120s systolic. on losartan 100mg daily and Maxzide. Not on any beta ojse, no allrgey documented. Not sure why will resume BP meds 5. Afib rate controlled on sotalol. Coumadin remains on hold will discuss with general surgery about when to resume it. on lovenox 40mg sc daily for now. 6. DVT prophylaxis: lovenox, per surgery This note was generated with [employer] dictation software. It may contain incorrect words, spelling, and punctuation that were not noted in checking the note before signing. Code Visit Inpatient E&M: 29104 Subs Hosp L3
--- NOTE | 2018-04-17 11:13 | CASEMGMT ---
RN CM assessment complete. See Link. DC PLAN: home -pt independent prior to admission. Plans to return home. No needs identified @ this time. Leroy BURGERN RN ACM
[2018-04-17 12:00] VITALS: BP 115/53; PULSE 56; RESP 16; TEMP 36.6; O2SAT 97
[2018-04-17] MEDS: Famotidine 20 MG Tablet 10 MG PO ×2 (12:14→22:33)
[2018-04-17] MEDS: Docusate Sodium 100 MG Capsule PO (12:15)
[2018-04-17] MEDS: Magnesium Oxide 400 MG Tablet PO (12:15)
[2018-04-17] MEDS: Losartan Potassium 100 MG Tablet PO (12:15)
[2018-04-17] MEDS: Enoxaparin 40 MG/0.4 ML Syringe SC (12:16)
[2018-04-17] MEDS: 0.9% Normal Saline 1,000 ML 100 ML IV (12:24)
[2018-04-17 12:25] LABS: Bedside Glucose 273 mg/dL (70-110)
[2018-04-17] MEDS: 0.9% NaCl Peripheral Flush Adult/Peds IV ×2 (12:26→12:37)
[2018-04-17 16:46] LABS: Bedside Glucose 256 mg/dL (70-110)
--- NOTE | 2018-04-17 18:01 | PCM.PN.BLA ---
Progress Note Doing very well but couldn't void and required st. cath Will treat with flomax Plan home tomorrow--with samson if required. Resume coumadin
[2018-04-17] MEDS: Tamsulosin HCl 0.4 MG Capsule PO (19:13)
[2018-04-17] MEDS: LORazepam 0.5 MG Tablet PO (20:21)
[2018-04-17] MEDS: Atorvastatin Calcium 40 MG Tablet PO (22:34)
[2018-04-17] MEDS: Sotalol Hydrochloride 80 MG Tablet 120 MG PO (22:35)
[2018-04-17] MEDS: Montelukast 10 MG Tablet PO (22:35)
[2018-04-17 22:56] LABS: Bedside Glucose 271 mg/dL (70-110)
[2018-04-18] MEDS: Acetaminophen 500 MG Tablet 1000 MG PO ×3 (00:28→12:40)
--- NOTE | 2018-04-18 06:11 | PCM.PN.SRG ---
Subjective: Passsing stool Voiding Minor LLQ discomfort - Physical Exam Abdomen: Bowel Sounds Present, Soft, Non Tender Vital Signs Temp Pulse Resp BP Pulse Ox 97.9 F 56 L 16 115/53 L 97 04/17/18 12:00 04/17/18 12:00 04/17/18 12:00 04/17/18 12:00 04/17/18 12:00 Oxygen Flow Rate (L/min) 2 Oxygen Delivery Method Room Air Weight: 198 lb 6.656 oz Body Mass Index (BMI) 38.7 Finger Stick Blood Glucose 226 Intake and Output for Last 24 Hours 04/16/18 04/17/18 04/18/18 23:59 23:59 23:59 Intake Total 2029 / 2029 3495 / 3495 907 / 907 Output Total 185 / 185 1000 / 1000 200 / 200 Balance 1845 / 1845 2495 / 2495 707 / 707 Laboratory Tests Past 24 Hrs 04/17/18 04/17/18 06:23 06:23 WBC 13.8 H RBC 3.59 L Hgb 11.5 L Hct 33.5 L MCV 93.3 MCH 32.0 MCHC 34.3 RDW 14.3 RDW Differential 48.2 H Plt Count 172 MPV 9.8 Sodium 139 Potassium 3.9 Chloride 100 Carbon Dioxide 27.0 Anion Gap 12 BUN 23 H Creatinine 1.51 H Estim Creat Clear Calc 24.55 Est GFR (MDRD) Af Amer 44 L Est GFR (MDRD) Non-Af 36 L BUN/Creatinine Ratio 15.2 Glucose 227 H Calcium 8.2 L POC Glucose 04/17/18 04/17/18 04/17/18 22:45 16:34 12:04 POC Glucose 271 H 256 H 273 H Medical Necessity - Tobacco Use Smoking Status: Former smoker Assessment/Plan All Active Problems (Last Reviewed 03/28/18 @ 15:47 by Yeimy Everett) Hx of bilateral cataract extraction (Acute) Hx of cardiac cath (Acute) History of surgery on arm (Acute) History of shoulder surgery (Acute) Hx of breast surgery (Acute) Hx of breast biopsy (Acute) Hx of CABG (Acute) Hx of hysterectomy (Acute) Hx of cholecystectomy (Acute) Hx of tubal ligation (Acute) Diverticulitis (Acute) Hx of Clostridium difficile infection (Acute) Hemorrhoids (Acute) Acid reflux (Acute) Diarrhea (Acute) Nausea (Acute) Asthma (Acute) Sleep apnea (Acute) A-fib (Acute) Heart disease (Acute) Heart murmur (Acute) Arthritis (Acute) Back problem (Acute) Diabetes (Acute) Fatigue (Acute) Ready for discharge
--- NOTE | 2018-04-18 06:12 | PCM.DC.SUM ---
Discharge Date and Diagnosis Date of Admission: 04/16/18 Date of Discharge: 04/18/18 - Primary Discharge Diagnosis Episodes of recurrent diverticulitis associated with c difficile colitis - Secondary Discharge Diagnosis Chronic Problems (Last Reviewed 03/28/18 @ 15:47 by Yeimy Everett) Sigmoid diverticulitis (Chronic) Diabetes Obesity GERD Sleep apnea Atrial fibrillation on chronic anticoagulation Hospital Course and Treatment Operations: - - Laparoscopic sigmoid colectomy Summary of Care Provided: The patient is a 72 year old F who had a lap sigmoid colectomy for episodes of recurrent diverticulitis with subsequent severe c difficile colitis antibiotic associated. Sopalamine patch caused some post operative dizziness that resolved with removal. Mild urinary retention resolved with single dose of flomax. Post op recovery otherwise comfortable and unremarkable. Coumadin resumed and pt has a home INR machine to check. DM management as assisted by hospitalist with appreciation. Surgical follow up in 10 days. Discharge Diet: Light diet - advance as tolerated - if you have questions about your diet instructions, please talk to you doctor. Discharge Activity: May Not Drive - for 1 week or while taking narcotic pain medicine. May shower in (days): 1 Call your doctor if your incision/area has: Continuous Slow Oozing, Sudden Increased Bleeding, Increased Pain/ Swelling, Increased Redness, Foul Smelling Discharge Call your doctor if you observe: Fever of 101 or Higher Suture Line Care: Avoid Pulling/Pushing, Avoid Pinching/Bending Additional Dressing/Incision Instructions:: Change or remove dressing in 2 days. Leave steri-strips in place for 1 week. Home Medications: Medications to take at Discharge ascorbic acid (vitamin C) 250 mg tablet 250 mg PO QDAY 12/22/17 aspirin 81 mg tablet,delayed release 81 mg PO QDAY 12/22/17 atorvastatin 40 mg tablet 40 mg PO QDAY 12/22/17 biotin 2,500 mcg capsule 5 mg PO ONCE cap 12/22/17 calcium carbonate-vitamin D3 600 mg (1,500 mg)-500 unit capsule 1,500 mg PO DAILY 12/22/17 famotidine 10 mg tablet 10 mg PO BID tab 12/22/17 folic acid 400 mcg tablet 0.4 mg PO QDAY 12/22/17 insulin NPH human semi-synthetic 100 unit/mL subcutaneous cartridge 50 unit SC BID 12/22/17 insulin U-100 regular human 100 unit/mL injection solution 5 unit IM PRN PRN 12/22/17 lactobacillus combination no.9 4 billion cell capsule 4,000 mmu cells PO QDAY 12/22/17 lorazepam 0.5 mg tablet 0.5 mg PO BID-TID 12/22/17 losartan 100 mg tablet 100 mg PO QDAY 12/22/17 magnesium oxide 400 mg capsule 400 mg PO QDAY cap 12/22/17 montelukast 10 mg tablet 10 mg PO QPM 12/22/17 potassium chloride 20 mEq oral packet 20 meq PO BID 12/22/17 pyridoxine (vitamin B6) 50 mg capsule 50 mg PO QDAY 12/22/17 sotalol 120 mg tablet 120 mg PO Q12H 12/22/17 triamterene 50 mg-hydrochlorothiazide 25 mg capsule 1 cap PO QDAY 12/22/17 vitamin B complex tablet 1 tab PO QDAY 12/22/17 warfarin 1 mg tablet 1 mg PO QDAY 12/22/17 warfarin 2.5 mg tablet 2.5 mg PO QDAY 12/22/17 sucralfate 1 gram tablet 1 g PO Q6H 03/28/18 Primary Care Physician: Marichuy Castano [Primary Care Provider] - Please Follow Up With: Carlos Maravilla MD - [phone] When: Call to make an appointment to be seen in about 10 days. Medical Necessity - Tobacco Use Smoking Status: Former smoker Meaningful Use Info Meaningful Use Diagnoses (Choose all that apply): None applicable
[2018-04-18] MEDS: Sucralfate 1 GM Tablet PO ×2 (06:25→12:20)
[2018-04-18] MEDS: Insulin Lispro 100 UNIT/ML INSULN.PEN SQ ×2 (06:29→12:20)
[2018-04-18 06:36] LABS: Bedside Glucose 194 mg/dL (70-110)
[2018-04-18 08:00] VITALS: BP 123/50; PULSE 52; RESP 14; TEMP 36.5; O2SAT 99
--- NOTE | 2018-04-18 08:06 | EKG12_ITS ---
Test Reason : BRADYCARDIA Blood Pressure : / mmHG Vent. Rate : 052 BPM Atrial Rate : 052 BPM P-R Int : 218 ms QRS Dur : 086 ms QT Int : 498 ms P-R-T Axes : 059 002 017 degrees QTc Int : 463 ms Sinus bradycardia with 1st degree A-V block Otherwise normal ECG When compared with ECG of 09-MAY-2000 14:42, NC interval has increased Confirmed by ZEFERINO IZAGUIRRE ([id number]), editor trade journal ZORAN POLLARD ([id number]) on 05/01/2018 3:00:00 PM Referred By: Carlos Maravilla Confirmed By:ZEFERINO IZAGUIRRE
[2018-04-18] MEDS: Famotidine 20 MG Tablet 10 MG PO (08:10)
[2018-04-18] MEDS: Magnesium Oxide 400 MG Tablet PO (08:11)
[2018-04-18] MEDS: Losartan Potassium 100 MG Tablet PO (08:12)
[2018-04-18] MEDS: Aspirin E.C. 81 MG Tablet PO (08:12)
[2018-04-18] MEDS: Enoxaparin 40 MG/0.4 ML Syringe SC (08:12)
[2018-04-18 08:20] VITALS: O2SAT 99
[2018-04-18 08:26] LABS: Anion Gap 8 (5-15); BUN 24 mg/dL (7-18); Chloride 103 mmol/L (98-107); EST Glomerular Filtration Rate 58 mL/min (>60); Est Glom Filt Rate - Afr Amer 70 mL/min (>60); Estimated Creatinine Clearance 37.06 ml/min; Glucose 202 mg/dL (74-106); Potassium 3.9 mmol/L (3.5-5.1); Sodium Level 136 mmol/L (136-145)
--- NOTE | 2018-04-18 08:51 | PCM.PN.HOSP ---
Subjective: Patient seen and examined. Feels well and had no complaints. She denied any fever chills, any cough or chest pain, shortness of breath, abdominal pain, any diarrhea vomiting. Review of systems is otherwise negative. Per nurse, patient was noted to be bradycardic overnight and heart rate was down to 49 this morning at time of review. EKG done at bedside showed first-degree AV block with heart rate in the 50s. Patient denies any lightheadedness or dizziness. 12 point review of systems otherwise negative. Vitals/I&O's: Vital Signs Temp Pulse Resp BP Pulse Ox 97.7 F L 52 L 14 123/50 H 99 04/18/18 08:00 04/18/18 08:00 04/18/18 08:00 04/18/18 08:00 04/18/18 08:00 Oxygen Flow Rate (L/min) 2 Oxygen Delivery Method Room Air Weight: 198 lb 6.656 oz Body Mass Index (BMI) 38.7 Finger Stick Blood Glucose 226 Intake and Output for Last 24 Hours 04/16/18 04/17/18 04/18/18 23:59 23:59 23:59 Intake Total 2029 / 2029 3495 / 3495 1207 / 1207 Output Total 185 / 185 1000 / 1000 450 / 450 Balance 1845 / 1845 2495 / 2495 757 / 757 General: Alert, Oriented x3, Cooperative, No apparent distress HEENT: Atraumatic, PERRLA, EOMI, Normocephalic Oral: Moist Mucosa Neck: Supple, No JVD, Negative Carotid Bruits Lungs: Clear to auscultation, Normal air movement, No rhonchi, No wheeze Cardiovascular: Regular rate, Regular Rhythm, Normal S1, Normal S2, Bradycardic Abdomen: Bowel Sounds Present, Soft, Non Tender, Non-Distended, - - laparoscopic incisions clean and dry Extremities: No clubbing, No cyanosis, No edema, Capillary Refill Less than 3 Seconds Skin: No rashes, No breakdown Musculoskeletal: No Tenderness to Palpation of Joints or Extremities, No Muscle Wasting Lymphatic: No Cervical, Supraclavicular, or Inguinal Adenopathy Neurological: Cranial nerves II-XII grossly intact, Motor Exam 5/5 strength throughout Psych/Mental Status: Normal Affect, Appropriate, Alert and oriented to time, place, person, mood and affect Laboratory Results 04/17/18 12:04: POC Glucose 273 H 04/17/18 16:34: POC Glucose 256 H 04/17/18 22:45: POC Glucose 271 H 04/18/18 06:28: POC Glucose 194 H 04/18/18 07:35: Sodium 136, Potassium 3.9, Chloride 103, Carbon Dioxide 25.0, Anion Gap 8, BUN 24 H, Creatinine 1.00, Estim Creat Clear Calc 37.06, Est GFR (MDRD) Af Amer 70, Est GFR (MDRD) Non-Af 58 L, BUN/Creatinine Ratio 24.0 H, Glucose 202 H, Calcium 8.0 L Current Medications Acetaminophen (Tylenol) 1,000 mg PO Q6 [facility] Last Admin: 04/18/18 06:25 Dose: 1,000 mg Aspirin (Ecotrin) 81 mg PO DAILYCM [facility] Last Admin: 04/18/18 08:12 Dose: 81 mg Atorvastatin Calcium (Lipitor) 40 mg PO QHS [facility] Last Admin: 04/17/18 22:34 Dose: 40 mg Dextrose (D50w Syringe) 0 gm IV X1 PRN; Protocol PRN Reason: Hypoglycemia Docusate Sodium (Colace) 100 mg PO BID [facility] Last Admin: 04/18/18 08:09 Dose: Not Given Enoxaparin Sodium (Lovenox) 40 mg SC DAILY [facility] Last Admin: 04/18/18 08:12 Dose: 40 mg Famotidine (Pepcid) 10 mg PO BID [facility] Last Admin: 04/18/18 08:10 Dose: 10 mg Glucagon () 1 mg IM .X1 PRN PRN Reason: Hypoglycemia Insulin Human Lispro (Humalog Kwikpen (Bkc)) 0 unit SQ ACHS [facility] PRN Reason: Protocol Last Admin: 04/18/18 06:29 Dose: 2 u Insulin Human NPH (Humulin N (Bkc)) 50 units SC [facility]AC [facility] Lorazepam (Ativan) 0.5 mg PO BID PRN PRN Reason: ANXIETY Last Admin: 04/17/18 20:21 Dose: 0.5 mg Losartan Potassium (Cozaar) 100 mg PO DAILY [facility] Last Admin: 04/18/18 08:12 Dose: 100 mg Magnesium Oxide (Mag-Ox 400) 400 mg PO DAILY [facility] Last Admin: 04/18/18 08:11 Dose: 400 mg Meclizine HCl (Antivert) 12.5 mg PO Q6H PRN PRN Reason: DIZZINESS Last Admin: 04/16/18 22:34 Dose: 12.5 mg Montelukast Sodium (Singulair) 10 mg PO QPM [facility] Last Admin: 04/17/18 22:35 Dose: 10 mg Ondansetron HCl (Zofran Odt) 4 mg PO Q6H PRN PRN PRN Reason: NAUSEA Last Admin: 04/16/18 13:57 Dose: 4 mg Potassium Chloride (K-Dur) 20 meq PO BID [facility] Last Admin: 04/18/18 08:12 Dose: 20 meq Sodium Chloride () 5 - 30 ml IV UD PRN PRN Reason: SALINE FLUSH Last Admin: 04/17/18 12:37 Dose: 10 ml Sotalol HCl (Betapace (G)) 80 mg PO Q12 [facility] Sucralfate (Carafate) 1 gm PO 1HR_ACHS [facility] Last Admin: 04/18/18 06:25 Dose: 1 gm Tamsulosin HCl (Flomax) 0.4 mg PO DAILY@1730 [facility] Last Admin: 04/17/18 19:13 Dose: 0.4 mg Medical Necessity - Tobacco Use Smoking Status: Former smoker Assessment/Plan All Active Problems (Last Reviewed 03/28/18 @ 15:47 by Yeimy Everett) Hx of bilateral cataract extraction (Acute) Hx of cardiac cath (Acute) History of surgery on arm (Acute) History of shoulder surgery (Acute) Hx of breast surgery (Acute) Hx of breast biopsy (Acute) Hx of CABG (Acute) Hx of hysterectomy (Acute) Hx of cholecystectomy (Acute) Hx of tubal ligation (Acute) Diverticulitis (Acute) Hx of Clostridium difficile infection (Acute) Hemorrhoids (Acute) Acid reflux (Acute) Diarrhea (Acute) Nausea (Acute) Asthma (Acute) Sleep apnea (Acute) A-fib (Acute) Heart disease (Acute) Heart murmur (Acute) Arthritis (Acute) Back problem (Acute) Diabetes (Acute) Fatigue (Acute) 1. Sigmoid diverticulosis s/p sigmoidectomy today is POD 2 has no complaints management as per general surgery. 2. Sinus bradycardia with first degree AV block noted to be bradycardic per telemetry overnight EKG done this morning showed first degree AV block, with HR being 52 on sotalol 120mg bid for AFib, which could be causing the bradycardia will reduce sotalol to 80mg bid, which is the lowest dose. patient counselled to follow up with cardiology as soon as possible for further evaluation of her bradycardia, and further medication adjustment as needed. Sees Dr Jose R Sinclair with [facility] 2. ADIS resolved. Cr down to 1 from 1.5 yesterday. 3. Diabetes mellitus gave lantus 20IU once yesterday as she was on only clear liquid diet will resume novolin NPH insulin twice daily today Also resume insulin sliding scale Humulin. 4. Benign essential hypertension BP has been in 120s systolic. on losartan 100mg daily and Maxzide. on sotalol for Afib. Sotalol reduced to 80mg bid from 120mg bid today o/a of bradycardia 5. Afib was bradycardic overnight, with HR being 42. EKG done showed first degree AV block. Sotalol reduced as documented above coumadin resumed yesterday. Received 3.5mg of coumadin, which is her regular dose. To take coumadin 3.5mg daily. Has a machine to check her INR at home; to check her INR daily and results will be sent to her PCP, for her coumadin dose to be adjusted as needed. 6. DVT prophylaxis: had been on lovenox, per surgery. Coumadin now resumed. Disposition: discharged today per surgery. This note was generated with [employer] dictation software. It may contain incorrect words, spelling, and punctuation that were not noted in checking the note before signing. Code Visit Inpatient E&M: 21884 [place] [id number]
[2018-04-18] MEDS: Sotalol Hydrochloride 80 MG Tablet PO (12:17)
[2018-04-18] MEDS: Insulin NPH Human 100 UNITS/ML PEN 50 UNITS SC (12:18)
[2018-04-18 12:50] LABS: Bedside Glucose 307 mg/dL (70-110)
== END 2018-04-18 14:09 | disposition home or self-care (01) | DRG 330 ==
LOC: ACINP 08:05 → MS2 14:21
PROVIDERS: Anesthesiology; Student in an Organized Health Care Education/Training Program; Urology; Admitting Provider Surgery; Family Provider Internal Medicine; PCP Internal Medicine; Visit Provider Surgery
PROC: 0DBN4ZZ Excision of Sigmoid Colon, Percutaneous Endoscopic Approach (ICD-10-PCS; CPT 44204; principal; 2018-04-16 06:50)
PROC: 0TH983Z Insertion of Infusion Device into Ureter, Via Natural or Artificial Opening Endoscopic (ICD-10-PCS; 2018-04-16 06:50)
DX: K57.32 Diverticulitis of large intestine without perforation or abscess without bleeding (principal); N17.9 Acute kidney failure, unspecified; I48.91 Unspecified atrial fibrillation; I10 Essential (primary) hypertension; E11.9 Type 2 diabetes mellitus without complications; Z79.4 Long term (current) use of insulin; Z87.891 Personal history of nicotine dependence; E66.9 Obesity, unspecified; Z68.38 Body mass index [BMI] 38.0-38.9, adult; Z79.01 Long term (current) use of anticoagulants; G47.30 Sleep apnea, unspecified; K21.9 Gastro-esophageal reflux disease without esophagitis; R33.9 Retention of urine, unspecified
CPT/HCPCS: 36415; 36416; 80048; 80076; 82962; 83036; 85025; 85027; 85610; 85730; 88304; 88307; 93005; 94762; 97803; J7030; J7050; J7120; A4216; C1760; C1769; J2405

== ENCOUNTER 2023-06-23 08:12 | Day surgery (SDC) | payer MEDICARE, OTHER, SELFPAY ==
[2023-06-23] VITALS (13 sets, daily range): BP systolic 75–135; BP diastolic 35–55; PULSE 63–87; RESP 16–18; TEMP 36.3–36.6; O2SAT 94–99; BMI 36.9
[2023-06-23 08:30] LABS: INR Fingerstick 1.1; Prothrombin Time Fingerstick 12.2 SEC (11.7-14.9)
[2023-06-23] MEDS: Lactated Ringers 1,000 ML 15 ML IV (08:49)
--- NOTE | 2023-06-23 08:52 | HP.PCM_ITS ---
History and Physical Date of Admission: 06/23/23 Visit Reasons: Per 2018 OV DUE FOR C-SCOPE 02/2023 Chief Complaint: COLONOSCOPY Allergies codeine Allergy (Unknown, Verified 04/25/23 14:32) Unknownhydrocodone [From [place]] Allergy (Unknown, Verified 04/25/23 14:32) UnknownIodinated Contrast Media [Iodinated Contrast- Oral and IV Dye] Allergy (Unknown, Verified 04/25/23 14:32) Unknownmorphine Allergy (Unknown, Verified 04/25/23 14:32) Unknownnitrofurantoin [From Macrodantin] Allergy (Unknown, Verified 04/25/23 14:32) Unknowntramadol Allergy (Unknown, Verified 04/25/23 14:32) Unknown Medications ascorbic acid (vitamin C) 250 mg tablet 250 mg PO QDAY supplement 12/22/17 [History Confirmed 04/25/23] aspirin 81 mg tablet,delayed release (Adult Aspirin Regimen) 81 mg PO QDAY heart health 12/22/17 [History Confirmed 04/25/23] atorvastatin 40 mg tablet 40 mg PO QDAY cholesterol 12/22/17 [History Confirmed 04/26/18] biotin 2,500 mcg capsule 5 mg PO ONCE supplement 12/22/17 [History Confirmed 04/25/23] calcium carbonate 600 mg-vitamin D3 12.5 mcg (500 unit) capsule (Calcium 600 with Vitamin D3) 1,500 mg PO DAILY supplement 12/22/17 [History Confirmed 04/25/23] famotidine 10 mg tablet (Pepcid AC) 10 mg PO BID gerd 12/22/17 [History Confirmed 04/25/23] folic acid 400 mcg tablet 0.4 mg PO QDAY supplement 12/22/17 [History Confirmed 04/25/23] insulin NPH human semi-syn 100 unit/mL subcutaneous cartridge 50 unit subcut BID dm 12/22/17 [History Confirmed 04/25/23] insulin regular human 100 unit/mL injection solution (Novolin R Regular U-100 Insulin) 5 unit IM PRN PRN dm 12/22/17 [History Confirmed 04/25/23] lactobacillus combination no.9 4 billion cell capsule (Adult 50 Plus Probiotic) 4,000 mmu cells PO QDAY supplement 12/22/17 [History Confirmed 04/26/18] lorazepam 0.5 mg tablet 0.5 mg PO BID-TID anxiety 12/22/17 [History Confirmed 04/26/18] losartan 100 mg tablet 100 mg PO QDAY bp 12/22/17 [History Confirmed 04/25/23] magnesium oxide 400 mg PO QDAY supplement 12/22/17 [History Confirmed 04/25/23] montelukast 10 mg tablet 10 mg PO QPM allergies 12/22/17 [History Confirmed 04/26/18] potassium chloride 20 mEq oral packet (Klor-Con) 20 meq PO BID supplement 12/22/17 [History Confirmed 04/25/23] pyridoxine (vitamin B6) 50 mg capsule 50 mg PO QDAY supplement 12/22/17 [History Confirmed 04/25/23] triamterene 50 mg-hydrochlorothiazide 25 mg capsule 1 cap PO QDAY supplement 12/22/17 [History Confirmed 04/26/18] vitamin B complex (B Complex-Vitamin B12 tablet) 1 tab PO QDAY supplement 12/22/17 [History Confirmed 04/26/18] warfarin 1 mg tablet (Coumadin) 1 mg PO QDAY bld thinner 12/22/17 [History Confirmed 04/25/23] warfarin 2.5 mg tablet (Coumadin) 2.5 mg PO QDAY bld thinner 12/22/17 [History Confirmed 04/25/23] sucralfate 1 gram tablet (Carafate) 1 g PO Q6H supplement 03/28/18 [History Confirmed 04/26/18] sotalol 80 mg tablet 80 mg PO Q12 #60 tabs 04/18/18 [Rx Confirmed 04/26/18] omeprazole 20 mg capsule,delayed release 20 mg PO DAILY 04/25/23 [History Confirmed 04/25/23] PFSH Medical History (Updated 04/25/23 @ 15:[address] Carlos Maravilla MD) A-fib Acid reflux Arthritis Asthma Back problem Diabetes Diarrhea Diverticulitis Fatigue Heart disease Heart murmur Hemorrhoids Hx of Clostridium difficile infection Nausea Sleep apnea Surgical History History of shoulder surgery History of surgery on arm Hx of bilateral cataract extraction Hx of breast biopsy Hx of breast surgery Hx of CABG Hx of cardiac cath Hx of cholecystectomy Hx of hysterectomy Hx of tubal ligation Family History Mother Diabetes Hypertension Heart disease HyperlipidemiaFather Heart disease Diabetes HyperlipidemiaDaughter SeizuresSister CVA (cerebral vascular accident) Social History (Updated 05/11/18 @ 15:[address] Carlos Maravilla MD) Smoking Status: Former smoker second hand exposure: No alcohol intake: never substance use type: does not use caffeine: Yes what type of physical activity do you participate in: none frequency: does not exercise seatbelt use: always HPI HPI HPI: 77-year-old female. I most recently assisted her April 2018 having performed a laparoscopic sigmoid colectomy for her April 18, 2018 for multiple episodes of recurrent sigmoid diverticulitis. Because of the multiple courses of oral antibiotics that she received she did obtained a severe case of C. difficile colitis and this also stimulated the decision for colectomy. She does have a previous history of colon polyps as well. Her most recent colonoscopy was March 02, 2018. She returns now to discuss potential for surveillance colonoscopy. She also has concerns about ongoing reflux symptoms. She states that remotely she had been seen by chain builder Dr. Alexander Bell. For period of time she was on omeprazole therapy then she ceased that immediately after her surgery because of the conflict with the C. difficile. She now complains of heartburn and nausea particularly after meals. When she tries to take Zofran for her nausea she gets constipated. She has had a previous history of a cholecystectomy. She complains of frequent stools loose stools and she is dependent upon cholestyramine. Remotely she had open heart bypass surgery. She has problems with atrial fibrillation and is on chronic Coumadin therapy. She has ongoing severe chronic back problems. She has been seen by Dr. Gibran white specially. She has had multiple injections. She states that occasionally the pain will radiate from her back to the low abdomen. No bright red blood per rectum or melena. ROS General General: Yes weight change and fatigue; No appetite, colon cancer, breast cancer or weakness HEENT HEENT: Yes difficulty swallowing; No eye injury, eye surgery, swollen glands or hoarseness Endo Endocrine: Yes diabetes mellitus; No thyroid disease, thyroid cancer, Hair loss, heat intolerance or cold intolerance Skin Skin: No rash or changing moles Breast Breast: No left breast lump, right breast lump, nipple discharge, breast pain, abnormal mammogram, abnormal US or breast enlargement Musc Musculoskeletal: Yes back problems and arthritis; No rheumatoid arthritis, gout or joint pain Cardio Cardiovascular: Yes murmur, heart disease and atrial fibrillation; No pacemaker, high blood pressure, heart attack, heart stent, palpitations, shortness of breat with exertion or chest pain Psych Psychiatric: Yes anxiety; No depression or hearing voices Resp Respiratory: Yes shortness of breath, Yes sleep apnea, Yes cough, No COPD, Yes asthma, No emphysema and No wheezing Gastro Gastrointestinal: Yes abdominal pain, Yes nausea or vomiting, Yes diarrhea, No constipation, No blood in stool, No acid reflux, No hemorrhoids, No ulcers, No gallbladder problem and No black,tarry stools [place] Hematologic: No blood thinners, No blood disorders, No bleeding, No anemia and No blood clots Neuro Neurologic: No system reviewed and no additional complaints, except as documented, No as per HPI, No abnormal gait, No abnormal hearing, No abnormal movements, No abnormal speech, No behavioral changes, No burning sensations, No confusion, No convulsions, No disequilibrium, No dizziness, No localized weakness, No frequent falls, No headache(s), No lack of coordination, No loss of vision, No memory loss, No numbness, No other visual disturbances, No radicular pain, No restless legs, No sensory deficit, No syncope, No tingling, No tremor(s), No weakness and No other Exam Const General: cooperative, comfortable and no acute distress [facility] Head: normal to inspection Eyes General: appearance normal, both eyes and all related structures Neck Neck: normal visual inspection Chest Other: Increased AP diameter. Thoracic kyphosis noted Resp Other: Diminished respiratory excursion however clear. Slightly diminished in the bases Cardio Other: Irregular GI Other: Soft, overweight, diffusely tender even to light palpation Musc Other: Kyphosis Skin General: no rashes or lesions noted Neuro General: patient alert, patient awake and patient oriented x3 Extrem General: no calf tenderness Psych Appearance: grossly normal Assessment and Plan Assessment and Plan (1) Personal history of colonic polyps: Status: Acute Plan: I recommended the patient a surveillance colonoscopy with possible biopsy or polypectomy as indicated. She is aware of the technique, benefit, risk, alternatives. She has had an opportunity to ask and have questions answered. We will schedule and proceed at her discretion. I appreciate the ongoing opportunity of assisting with her surgical care. Copy: Dr. Marichuy Maravilla M.D., F.A.C.S. (2) Acid reflux: Status: Acute Qualifiers: Esophagitis presence: esophagitis presence not specified Qualified Code(s): K21.9 - Gastro-esophageal reflux disease without esophagitis Plan: I think it is reasonable to offer the patient combined esophagogastrod uodenoscopy careful inspection of the duodenum stomach EG junction and biopsies were appropriate to evaluate for H. pylori or even eosinophilic esophagitis to assist the patient with her chronic ongoing symptoms. Also recommend to her surveillance colonoscopy with possible biopsy or polypectomy as indicated. We will have her hold her warfarin 4 days preprocedure. Because of the patient's dependence on cholestyramine because of looser stools which may be related to her cholecystectomy or may be related to her sigmoid colectomy I will consider random colonic biopsies. She has had an opportunity to ask and have questions answered. We will utilize monitored anesthesia care to assist. Copy: Dr. Marichuy Maravilla M.D., F.A.C.S I have examined the patient and the H&P has been reviewed. There are no clinical changes since date of exam. Carlos Maravilla M.D., F.A.C.S.
[2023-06-23 09:27] LABS: Bedside Glucose 186 mg/dL (74-106)
--- NOTE | 2023-06-23 09:30 | IMM_PTH ---
PATIENT: CARMEN HARVEY LOC: EN U#:[id number] AGE/SX: 77/F ROOM: RE06/23/[address]: Dr. Carlos Maravilla MD : 1945 BED: DIS: 06/23/2023 SPEC #: [id number] RECD: 06/23/23 13:43 STATUS: RUTH REQ #: [id number] PEE: 06/23/23 09:[address]: Carlos Maravilla DEPT: IMMUNOHISTOCHEMISTRY RECD BY: Lore Garcia ENTERED: 06/23/23 13:44 SP TYPE: IMMUNO OTHR DR: Dr. Marichuy Castano MD Tissues: A - Stomach, NOS Procedures: H Pylori (initial) PHYSICIAN & INSTITUTION [place] [id number] SPECIMEN INFORMATION: Tissue Source: A - Antrum Clinical Info: Colonic polyps, acid reflux Specimen Number: [id number] CPT code: 01706 METHODOLOGY: Deparaffinized sections of prefer/formalin-fixed tissue or PAP/DQ stained slides are incubated with monoclonal/polyclonal antibodies/oligonucleotide probes. Localization is made via biotin free immunoperoxidase method. Appropriate controls are performed and reacted as expected. Results on target cell population are indicated in the following table: RESULTS: ANTIBODY / CLONE RESULT Block A H Pylori (polyclonal) negative These tests were developed and their performance characteristics determined by [facility]. They may not have been cleared or approved by the U.S. Food and Drug Administration. The FDA has determined that such clearance or approval is not necessary. The above immunohistochemical/dualISH markers are ordered and reviewed by the Pathologist. INTERPRETATION: A. Antrum, biopsy: Negative for Helicobacter pylori organisms SJ:jarrod 06/26/2023
--- NOTE | 2023-06-23 09:30 | EGD_PTH ---
PATIENT: CARMEN HARVEY LOC: EN U#:[id number] AGE/SX: 77/F ROOM: RE06/23/[address]: Dr. Carlos Maravilla MD : 1945 BED: DIS: 06/23/2023 SPEC #: [id number] RECD: 06/23/23 11:20 STATUS: RUTH PADMINI #: [id number] PEE: 06/23/23 09:[address]: Carlos Maravilla DEPT: SURGICAL PATHOLOGY RECD BY: Rohini Horton ENTERED: 06/23/23 11:39 SP TYPE: EGD BIOPSY OT DR: Dr. Marichuy Castano MD Tissues: A - Gastric mucous membrane B - Gastric mucous membrane C - Esophageal mucous membrane D - Esophageal mucous membrane E - Cecum, NOS F - COLON BIOPSY Procedures: Surgery Specimen Level IV HEADER OPERATION: Colonoscopy, EGD PRE-OP DIAGNOSIS: History of colonic polyps, acid reflux TISSUE SUBMITTED: A - Antrum for H. pylori and path, B - Greater curvature polyp biopsy, C - Distal esophagus biopsy, D - Mid esophagus biopsy, E - Cecal biopsy, F - Random colonic biopsy MICROSCOPIC DIAGNOSIS A. Antrum, biopsy: Mild gastritis. See microscopic description and comment. B. Greater curvature polyp, biopsy: Fundic gland polyp. C. Distal esophagus, biopsy: Fragments of gastroesophageal mucosa with chronic inflammation. Intestinal metaplasia (goblet cell metaplasia) not identified. D. Mid esophagus, biopsy: Fragments of benign squamous mucosa. E. Cecal biopsy: A fragment of colonic mucosa, no pathologic diagnosis. F. Random colonic biopsy: Fragments of colonic mucosa, no pathologic diagnosis. SJ: 06/26/2023 COMMENT A. The results of immunohistochemistry for Helicobacter pylori will be reported separately ([id number]). MICROSCOPIC DESCRIPTION Slides are reviewed. A. The specimen shows fragments of gastric mucosa with chronic inflammatory cell infiltrates in the lamina propria consisting of lymphocytes and plasma cells, consistent with mild chronic gastritis. GROSS DESCRIPTION A - Received in fixative is one container labeled with the patient's name and designated antrum biopsy. The specimen consists of one irregular fragment of light abdi soft tissue that measures 0.3 x 0.3 x 0.1 cm. The specimen is totally submitted in one cassette. B - Received in fixative is one container labeled with the patient's name and designated greater curvature polyp biopsy. The specimen consists of one irregular fragment of light abdi soft tissue that measures 0.3 x 0.3 x 0.1 cm. The specimen is totally submitted in one cassette. C - Received in fixative is one container labeled with the patient's name and designated distal esophagus biopsy. The specimen consists of one irregular fragment of light abdi soft tissue that measures 0.3 x 0.3 x 0.1 cm. The specimen is totally submitted in one cassette. D - Received in fixative is one container labeled with the patient's name and designated mid esophagus biopsy. The specimen consists of multiple irregular fragments of light abdi soft tissue that in aggregate measure 0.6 x 0.3 x 0.1 cm. The specimen is totally submitted in one cassette. E - Received in fixative is one container labeled with the patient's name and designated cecal biopsy. The specimen consists of one irregular fragment of light abdi soft tissue that measures 0.3 x 0.3 x 0.1 cm. The specimen is totally submitted in one cassette. F - Received in fixative is one container labeled with the patient's name and designated random colon biopsy. The specimen consists of multiple irregular fragments of light abdi soft tissue that in aggregate measure 1.5 x 0.4 x 0.1 cm. The specimen is totally submitted in one cassette. / SJ:rg 06/23/2023 TC:3 CPT: 34765 x6, 69963
--- NOTE | 2023-06-23 10:41 | OP.EGD_ITS ---
Patient Name: Nisha Esparza Procedure Date: 06/23/2023 10:00 AM Date of : 1945 Age: 77 Procedure: Upper GI endoscopy Indications: Dysphagia Providers: Carols Maravilla MD Medicines: See the Anesthesia note for documentation of the administered medications Complications: No immediate complications. Procedure: Pre-Anesthesia Assessment: - Prior to the procedure, a History and Physical was performed, and patient medications and allergies were reviewed. The patient's tolerance of previous anesthesia was also reviewed. The risks and benefits of the procedure and the sedation options and risks were discussed with the patient. All questions were answered, and informed consent was obtained. Prior Anticoagulants: The patient has taken no anticoagulant or antiplatelet agents. ASA Grade Assessment: II - A patient with mild systemic disease. After reviewing the risks and benefits, the patient was deemed in satisfactory condition to undergo the procedure. After obtaining informed consent, the endoscope was passed under direct vision. Throughout the procedure, the patient's blood pressure, pulse, and oxygen saturations were monitored continuously. The Colonoscope was introduced through the mouth, and advanced to the second part of duodenum. The upper GI endoscopy was accomplished without difficulty. The patient tolerated the procedure well. Scope In: 10:07:31 AM Scope Out: 10:18:41 AM Total Procedure Duration Time 0 hours 11 minutes 10 seconds Findings: A small hiatal hernia was present. The Z-line was variable and was found 35 cm from the incisors. Biopsies were taken with a cold forceps for histology. The middle third of the esophagus was normal. Biopsies were taken with a cold forceps for histology. Diffuse moderate inflammation was found in the entire examined stomach. Biopsies were taken with a cold forceps for histology. Multiple sessile polyps with no bleeding and no stigmata of recent bleeding were found in the gastric fundus. The polyp was removed with a cold biopsy forceps. Resection and retrieval were complete. The examined duodenum was normal. Impression: - Small hiatal hernia. - Z-line variable, 35 cm from the incisors. Biopsied. - Normal middle third of esophagus. Biopsied. - Chronic gastritis. Active bile reflux with stagnant bile noted biopsied. - Multiple gastric polyps. Resected and retrieved. - Normal examined duodenum. Recommendation: - Telephone my office for pathology results in 1 week. - Use sucralfate tablets 1 gram PO BID. - Continue present medications. Procedure Code(s): --- Professional --- 40485, Esophagogastroduodenoscopy, flexible, transoral; with biopsy, single or multiple Diagnosis Code(s): --- Professional --- K44.9, Diaphragmatic hernia without obstruction or gangrene K22.89, Other specified disease of esophagus K29.50, Unspecified chronic gastritis without bleeding K31.7, Polyp of stomach and duodenum R13.10, Dysphagia, unspecified CPT copyright 2021 [employer]. All rights reserved. The codes documented in this report are preliminary and upon battery repairer review may be revised to meet current compliance requirements. Carlos Maravilla MD 06/23/2023 10:41:15 AM This report has been signed electronically. Number of Addenda: 0 Note Initiated On: 06/23/2023 10:00 AM
--- NOTE | 2023-06-23 10:42 | OP.CCLET_ITS ---
06/23/2023 Marichuy Castano Re : Upper GI endoscopy procedure for Nisha Esparza Dear Omaira This procedure was performed on Friday, June 23, 2023. My impressions and recommendations are as follows: Impressions : - Small hiatal hernia. - Z-line variable, 35 cm from the incisors. Biopsied. - Normal middle third of esophagus. Biopsied. - Chronic gastritis. Active bile reflux with stagnant bile noted biopsied. - Multiple gastric polyps. Resected and retrieved. - Normal examined duodenum. Recommendations : - Telephone my office for pathology results in 1 week. - Use sucralfate tablets 1 gram PO BID. - Continue present medications. My findings are described in the full procedure note, which is enclosed. If I can be of further assistance, please feel free to contact me at Doctor phone number(s): Work: . Sincerely, Carlos Maravilla MD 06/23/2023 10:41:15 AM This report has been signed electronically.
--- NOTE | 2023-06-23 11:15 | OP.CCLET_ITS ---
06/23/2023 Marichuy Castano Re : Colonoscopy procedure for Nisha Esparza Dear Omaira This procedure was performed on Friday, June 23, 2023. My impressions and recommendations are as follows: Impressions : - Preparation of the colon was fair. - Erythematous mucosa in the cecum. Biopsied. - Biopsies were taken with a cold forceps from the entire colon for evaluation of microscopic colitis. No overt findings that would correlate with diarrhea. Cecal and random colonic biopsies pending. Recommendations : - Discharge patient to home. - Resume previous diet. - Continue present medications. - Repeat colonoscopy is not recommended due to current age (66 years or older) for screening purposes. - Telephone my office for pathology results in 1 week. My findings are described in the full procedure note, which is enclosed. If I can be of further assistance, please feel free to contact me at Doctor phone number(s): Work: . Sincerely, Carlos Maravilla MD 06/23/2023 11:15:06 AM This report has been signed electronically.
--- NOTE | 2023-06-23 11:15 | OP.COLON_ITS ---
Patient Name: Nisha Esparza Procedure Date: 06/23/2023 10:19 AM Date of : 1945 Age: 77 Procedure: Colonoscopy Indications: Chronic diarrhea Providers: Carlos Maravilla MD Patient Profile: Last Colonoscopy: 5 years ago. Complications: No immediate complications. Procedure: Pre-Anesthesia Assessment: - Prior to the procedure, a History and Physical was performed, and patient medications and allergies were reviewed. The patient's tolerance of previous anesthesia was also reviewed. The risks and benefits of the procedure and the sedation options and risks were discussed with the patient. All questions were answered, and informed consent was obtained. Prior Anticoagulants: The patient has taken no anticoagulant or antiplatelet agents. ASA Grade Assessment: II - A patient with mild systemic disease. After reviewing the risks and benefits, the patient was deemed in satisfactory condition to undergo the procedure. After I obtained informed consent, the scope was passed under direct vision. Throughout the procedure, the patient's blood pressure, pulse, and oxygen saturations were monitored continuously. The Colonoscope was introduced through the anus and advanced to the cecum, identified by appendiceal orifice and ileocecal valve. The colonoscopy was performed without difficulty. The patient tolerated the procedure well. The quality of the bowel preparation was fair. The ileocecal valve was photographed. Scope In: 10:22:58 AM Scope Withdrawal Time 0 hours 7 minutes 16 seconds Scope Out: 10:34:58 AM Total Procedure Duration Time 0 hours 12 minutes 0 seconds Findings: A diffuse area of mildly erythematous mucosa was found in the cecum. This was biopsied with a cold forceps for histology. Biopsies for histology were taken with a cold forceps from the entire colon for evaluation of microscopic colitis. Impression: - Preparation of the colon was fair. - Erythematous mucosa in the cecum. Biopsied. - Biopsies were taken with a cold forceps from the entire colon for evaluation of microscopic colitis. No overt findings that would correlate with diarrhea. Cecal and random colonic biopsies pending. Recommendation: - Discharge patient to home. - Resume previous diet. - Continue present medications. - Repeat colonoscopy is not recommended due to current age (66 years or older) for screening purposes. - Telephone my office for pathology results in 1 week. Procedure Code(s): --- Professional --- 04476, Colonoscopy, flexible; with biopsy, single or multiple Diagnosis Code(s): --- Professional --- K63.89, Other specified diseases of intestine K52.9, Noninfective gastroenteritis and colitis, unspecified CPT copyright 2021 [employer]. All rights reserved. The codes documented in this report are preliminary and upon stitching machine operator review may be revised to meet current compliance requirements. Carlos Maravilla MD 06/23/2023 11:15:06 AM This report has been signed electronically. Number of Addenda: 0 Note Initiated On: 06/23/2023 10:19 AM
== END 2023-06-23 12:07 | disposition home or self-care (01) ==
LOC: EN 08:14 → AC 08:14
PROVIDERS: PCP Internal Medicine; Referring Provider Internal Medicine; Visit Provider Surgery
PROC: 0DJD8ZZ Inspection of Lower Intestinal Tract, Via Natural or Artificial Opening Endoscopic (ICD-10-PCS; CPT 45378; principal; 2023-06-23 09:25)
DX: K29.50 Unspecified chronic gastritis without bleeding (principal); I48.91 Unspecified atrial fibrillation; E11.9 Type 2 diabetes mellitus without complications; Z79.4 Long term (current) use of insulin; R13.10 Dysphagia, unspecified; K31.7 Polyp of stomach and duodenum; K44.9 Diaphragmatic hernia without obstruction or gangrene; G47.30 Sleep apnea, unspecified; K21.9 Gastro-esophageal reflux disease without esophagitis; I10 Essential (primary) hypertension; E78.00 Pure hypercholesterolemia, unspecified; K76.0 Fatty (change of) liver, not elsewhere classified; K63.89 Other specified diseases of intestine; Z95.1 Presence of aortocoronary bypass graft; Z79.82 Long term (current) use of aspirin; Z79.899 Other long term (current) drug therapy; Z79.01 Long term (current) use of anticoagulants; Z87.891 Personal history of nicotine dependence; Z86.010 Personal history of colon polyps
CPT/HCPCS: 45380; 43239; 36416; 82962; 85610; 88305; 88342; J7120; J2405

== ENCOUNTER 2025-06-05 06:21 | Day surgery (SDC) | payer MEDICARE, OTHER, SELFPAY ==
--- NOTE | 2025-06-04 15:01 | PAT.ANESEVAL ---
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 When Was Last Pacemaker Check QUESTION #4 FULL TEXT: You/Your Family Experience fever (hyperthermia) with Anesthesia Last Oral Intake Last Oral intake: Last Oral Intake NPO since Meds taken in AM with sips of water? 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 Female Yes 06/03/25 15:02 HX of Motion Sickness No 06/03/25 15:02 HX of N/V After Surgery No 06/03/25 15:02 Non-Smoker Yes 06/03/25 15:02 Duration of Surgery greater No 06/03/25 15:02 than 60 minutes Number of Risk Factors 2 06/03/25 15:02 PONV Score Moderate Risk 06/03/25 15:02 Height & Weight Height & Weight: Anesthesia: Height & Weight Height 4 ft 11 in 05/05/25 13:48 Respiratory Assessment Respiratory Assessment - aircraft maintenance engineer: Respiratory Tract Infection Hx - aircraft maintenance engineer Hx Respiratory Tract Infection No 06/03/25 15:02 STOP Sleep Apnea STOP Sleep Apnea - aircraft maintenance engineer: STOP Sleep Apnea - aircraft maintenance engineer Hx Hypertension Yes 06/03/25 15:02 Hx Sleep Apnea Yes 06/03/25 15:02 CPAP Yes 06/03/25 15:02 BIPAP No 06/03/25 15:02 Do you snore loudly (louder than talking or can be heard Do you often feel tired/ fatigued/ sleepy during daytime? Has anyone observed you stop breathing during sleep? STOP Results Positive 06/03/25 15:02 QUESTION #5 FULL TEXT : Do you snore loudly (louder than talking or can be heard through closed doors)? 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 Specify any problems Hx of Preganancy in last 3 No 06/03/25 15:02 Months Nurse Filling Out Transfusion [email or web address] 06/03/25 15:02 & Questions: Date: 06/03/25 06/03/25 15:02 Time: 06/03/25 15:02 Patient unable to answer at this time (ie. confused, unrespo /Reproduction History /Reproductive History - aircraft maintenance engineer: /Reproductive Hx- aircraft maintenance engineer Hx Now Gestational Age (in weeks): EDC: Hx Hx Para Hx Section SAB PFSH Medical History Insulin dependent diabetes mellitus History of renal disease Back pain Difficulty swallowing Heartburn Gastric reflux History of pain when walking History of atrial fibrillation Wears glasses Post-menopausal History of steroid therapy Fatty liver High cholesterol Scoliosis Dietary restriction History of hiatal hernia History of Clostridium difficile infection History of diverticulitis Diverticulosis Former smoker CPAP (continuous positive airway pressure) dependence Hypertension Cardiology follow-up encounter History of echocardiogram History of stress test Diverticulitis Hx of Clostridium difficile infection Hemorrhoids Acid reflux Diarrhea Nausea Asthma Sleep apnea A-fib Heart disease Heart murmur Arthritis Back problem Diabetes Fatigue Home Medications ?Medication ?Instructions ?Recorded ?Last Taken ?Type ascorbic acid (vitamin C) 250 mg 500 mg PO QDAY supplement 12/22/17 Unknown History tablet atorvastatin 40 mg tablet 40 mg PO QDAY cholesterol 12/22/17 Unknown History calcium 600 mg (as 1,000 mg PO DAILY supplement 12/22/17 Unknown History carbonate)-vitamin D3 12.5 mcg (500 unit) capsule (Calcium with Vit D3) folic acid 400 mcg tablet 0.4 mg PO QDAY supplement 12/22/17 Unknown History insulin NPH human semi-syn 100 30 unit subcut BID dm 12/22/17 Unknown History unit/mL subcutaneous cartridge insulin regular human 100 unit/mL 5 unit subcut PRN PRN dm 12/22/17 Unknown History injection solution (Novolin R Regular U-100 Insulin) lorazepam 0.5 mg tablet 0.5 mg PO BID-TID anxiety 12/22/17 06/23/23 07:00 History magnesium oxide 400 mg PO BID supplement 12/22/17 Unknown History montelukast 10 mg tablet 10 mg PO QPM allergies 12/22/17 Unknown History potassium chloride 20 mEq oral 20 meq PO BID supplement 12/22/17 Unknown History packet (Klor-Con) vitamin B complex (B 1 tab PO QDAY supplement 12/22/17 Unknown History Complex-Vitamin B12 tablet) metoprolol succinate 50 mg 50 mg PO DAILY 06/20/23 06/23/23 07:00 History tablet,extended release 24 hr albuterol sulfate 90 mcg/actuation 2 puff inhalation Q6H PRN 05/05/25 Unknown History aerosol inhaler (Ventolin HFA) shortness of breath or wheezing apixaban 5 mg tablet (Eliquis) 5 mg PO BID 05/05/25 05/29/25 History biotin 10,000 mcg chewable tablet 7,500 mcg PO DAILY 05/05/25 Unknown History (Hair, Skin and Nails (biotin)) empagliflozin 10 mg tablet 5 mg PO QAM 05/05/25 06/01/25 History (Jardiance) losartan 100 mg tablet 25 mg PO QDAY bp 05/05/25 Unknown History ondansetron 4 mg disintegrating 4 mg PO Q6H PRN nausea and vomiting 05/05/25 Unknown History tablet cholecalciferol (vitamin D3) 25 3,000 unit PO DAILY 06/03/25 Unknown History mcg (1,000 unit) tablet (PureVita Vitamin D3) hydrochlorothiazide 12.5 mg tablet 12.5 mg PO DAILY 06/03/25 Unknown History loratadine 10 mg tablet (Claritin) 10 mg PO DAILY PRN allergy symptoms 06/03/25 Unknown History niacin 400 mg (inositol niacinate 2 cap PO DAILY 06/03/25 Unknown History 500 mg) capsule (Niacin Flush Free) omeprazole 20 mg capsule,delayed 20 mg PO DAILY 06/03/25 Unknown History release sucralfate 1 gram tablet (Carafate) 1 g PO QHS 06/03/25 Unknown History Allergy/AdvReac Type Severity Reaction Status Date / Time codeine Allergy Unknown Unknown Verified 06/03/25 14:48 hydrocodone (From [place]) Allergy Unknown Unknown Verified 06/03/25 14:48 Iodinated Contrast Media Allergy Unknown Unknown Verified 06/03/25 14:48 (Iodinated Contrast- Oral and IV Dye) morphine Allergy Unknown Unknown Verified 06/03/25 14:48 nitrofurantoin (From Allergy Unknown Unknown Verified 06/03/25 14:48 Macrodantin) tramadol Allergy Unknown Unknown Verified 06/03/25 14:48 Family History Mother Diabetes Hypertension Heart disease Hyperlipidemia Father Heart disease Diabetes Hyperlipidemia Daughter Seizures Sister CVA (cerebral vascular accident) Surgical History History of partial colectomy History of cardiac radiofrequency ablation Hx of bilateral cataract extraction Hx of cardiac cath History of surgery on arm History of shoulder surgery Hx of breast surgery Hx of breast biopsy Hx of CABG Hx of hysterectomy Hx of cholecystectomy Hx of tubal ligation Social History Smoking Status: Former smoker second hand exposure: No alcohol intake: never substance use type: does not use caffeine: Yes what type of physical activity do you participate in: none frequency: does not exercise seatbelt use: always Audit: Pertinent Findings Pertinent Findings EKG Perinent findings: EKG normal sinus rhythm. Inferior infarct, age undetermined. Cannot rule out anterior infarct. Age undetermined. Stress test pertinent findings: Stress test for 2124. Nuclear stress test showed no conclusive evidence of reversible ischemia. Calculated ejection fraction 79% with normal wall motion. There is side effects in the anterolateral wall without wall motion abnormality to suggest infarct. Echo (EF%) pertinent findings: Echo 12/09/2024. Left ventricle is normal in size and thickness. Systolic ejection fraction is more than 70% with normal wall motion. There is mild mitral annular calcification seen. Mitral valve leaflets have fibrocalcific changes. There is trivial mitral valve regurgitation. There is mild tricuspid valve regurgitation seen. Aortic valve is trileaflet with sclerosis without stenosis or regurgitation. Right ventricle is normal size and systolic function. Estimated with systolic pressure is 23 mmHg. Recommendation Anesthesia Recommendation Anesthesia recommendation: OPTIMIZED for anesthesia
--- NOTE | 2025-06-04 15:01 | PAT.ANESEVAL ---
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 When Was Last Pacemaker Check QUESTION #4 FULL TEXT: You/Your Family Experience fever (hyperthermia) with Anesthesia Last Oral Intake Last Oral intake: Last Oral Intake NPO since Meds taken in AM with sips of water? 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 Female Yes 06/03/25 15:02 HX of Motion Sickness No 06/03/25 15:02 HX of N/V After Surgery No 06/03/25 15:02 Non-Smoker Yes 06/03/25 15:02 Duration of Surgery greater No 06/03/25 15:02 than 60 minutes Number of Risk Factors 2 06/03/25 15:02 PONV Score Moderate Risk 06/03/25 15:02 Height & Weight Height & Weight: Anesthesia: Height & Weight Height 4 ft 11 in 05/05/25 13:48 Respiratory Assessment Respiratory Assessment - casing inspector: Respiratory Tract Infection Hx - casing inspector Hx Respiratory Tract Infection No 06/03/25 15:02 STOP Sleep Apnea STOP Sleep Apnea - casing inspector: STOP Sleep Apnea - casing inspector Hx Hypertension Yes 06/03/25 15:02 Hx Sleep Apnea Yes 06/03/25 15:02 CPAP Yes 06/03/25 15:02 BIPAP No 06/03/25 15:02 Do you snore loudly (louder than talking or can be heard Do you often feel tired/ fatigued/ sleepy during daytime? Has anyone observed you stop breathing during sleep? STOP Results Positive 06/03/25 15:02 QUESTION #5 FULL TEXT : Do you snore loudly (louder than talking or can be heard through closed doors)? 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 Specify any problems Hx of Preganancy in last 3 No 06/03/25 15:02 Months Nurse Filling Out Transfusion [email or web address] 06/03/25 15:02 & Questions: Date: 06/03/25 06/03/25 15:02 Time: 06/03/25 15:02 Patient unable to answer at this time (ie. 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 Hx Now Gestational Age (in weeks): EDC: Hx Hx Para Hx Section SAB PFSH Medical History Insulin dependent diabetes mellitus History of renal disease Back pain Difficulty swallowing Heartburn Gastric reflux History of pain when walking History of atrial fibrillation Wears glasses Post-menopausal History of steroid therapy Fatty liver High cholesterol Scoliosis Dietary restriction History of hiatal hernia History of Clostridium difficile infection History of diverticulitis Diverticulosis Former smoker CPAP (continuous positive airway pressure) dependence Hypertension Cardiology follow-up encounter History of echocardiogram History of stress test Diverticulitis Hx of Clostridium difficile infection Hemorrhoids Acid reflux Diarrhea Nausea Asthma Sleep apnea A-fib Heart disease Heart murmur Arthritis Back problem Diabetes Fatigue Home Medications ?Medication ?Instructions ?Recorded ?Last Taken ?Type ascorbic acid (vitamin C) 250 mg 500 mg PO QDAY supplement 12/22/17 Unknown History tablet atorvastatin 40 mg tablet 40 mg PO QDAY cholesterol 12/22/17 Unknown History calcium 600 mg (as 1,000 mg PO DAILY supplement 12/22/17 Unknown History carbonate)-vitamin D3 12.5 mcg (500 unit) capsule (Calcium with Vit D3) folic acid 400 mcg tablet 0.4 mg PO QDAY supplement 12/22/17 Unknown History insulin NPH human semi-syn 100 30 unit subcut BID dm 12/22/17 Unknown History unit/mL subcutaneous cartridge insulin regular human 100 unit/mL 5 unit subcut PRN PRN dm 12/22/17 Unknown History injection solution (Novolin R Regular U-100 Insulin) lorazepam 0.5 mg tablet 0.5 mg PO BID-TID anxiety 12/22/17 06/23/23 07:00 History magnesium oxide 400 mg PO BID supplement 12/22/17 Unknown History montelukast 10 mg tablet 10 mg PO QPM allergies 12/22/17 Unknown History potassium chloride 20 mEq oral 20 meq PO BID supplement 12/22/17 Unknown History packet (Klor-Con) vitamin B complex (B 1 tab PO QDAY supplement 12/22/17 Unknown History Complex-Vitamin B12 tablet) metoprolol succinate 50 mg 50 mg PO DAILY 06/20/23 06/23/23 07:00 History tablet,extended release 24 hr albuterol sulfate 90 mcg/actuation 2 puff inhalation Q6H PRN 05/05/25 Unknown History aerosol inhaler (Ventolin HFA) shortness of breath or wheezing apixaban 5 mg tablet (Eliquis) 5 mg PO BID 05/05/25 05/29/25 History biotin 10,000 mcg chewable tablet 7,500 mcg PO DAILY 05/05/25 Unknown History (Hair, Skin and Nails (biotin)) empagliflozin 10 mg tablet 5 mg PO QAM 05/05/25 06/01/25 History (Jardiance) losartan 100 mg tablet 25 mg PO QDAY bp 05/05/25 Unknown History ondansetron 4 mg disintegrating 4 mg PO Q6H PRN nausea and vomiting 05/05/25 Unknown History tablet cholecalciferol (vitamin D3) 25 3,000 unit PO DAILY 06/03/25 Unknown History mcg (1,000 unit) tablet (PureVita Vitamin D3) hydrochlorothiazide 12.5 mg tablet 12.5 mg PO DAILY 06/03/25 Unknown History loratadine 10 mg tablet (Claritin) 10 mg PO DAILY PRN allergy symptoms 06/03/25 Unknown History niacin 400 mg (inositol niacinate 2 cap PO DAILY 06/03/25 Unknown History 500 mg) capsule (Niacin Flush Free) omeprazole 20 mg capsule,delayed 20 mg PO DAILY 06/03/25 Unknown History release sucralfate 1 gram tablet (Carafate) 1 g PO QHS 06/03/25 Unknown History Allergy/AdvReac Type Severity Reaction Status Date / Time codeine Allergy Unknown Unknown Verified 06/03/25 14:48 hydrocodone (From [place]) Allergy Unknown Unknown Verified 06/03/25 14:48 Iodinated Contrast Media Allergy Unknown Unknown Verified 06/03/25 14:48 (Iodinated Contrast- Oral and IV Dye) morphine Allergy Unknown Unknown Verified 06/03/25 14:48 nitrofurantoin (From Allergy Unknown Unknown Verified 06/03/25 14:48 Macrodantin) tramadol Allergy Unknown Unknown Verified 06/03/25 14:48 Family History Mother Diabetes Hypertension Heart disease Hyperlipidemia Father Heart disease Diabetes Hyperlipidemia Daughter Seizures Sister CVA (cerebral vascular accident) Surgical History History of partial colectomy History of cardiac radiofrequency ablation Hx of bilateral cataract extraction Hx of cardiac cath History of surgery on arm History of shoulder surgery Hx of breast surgery Hx of breast biopsy Hx of CABG Hx of hysterectomy Hx of cholecystectomy Hx of tubal ligation Social History Smoking Status: Former smoker second hand exposure: No alcohol intake: never substance use type: does not use caffeine: Yes what type of physical activity do you participate in: none frequency: does not exercise seatbelt use: always Audit: Pertinent Findings Pertinent Findings EKG Perinent findings: EKG normal sinus rhythm. Inferior infarct, age undetermined. Cannot rule out anterior infarct. Age undetermined. Stress test pertinent findings: Stress test for 2124. Nuclear stress test showed no conclusive evidence of reversible ischemia. Calculated ejection fraction 79% with normal wall motion. There is side effects in the anterolateral wall without wall motion abnormality to suggest infarct. Echo (EF%) pertinent findings: Echo 12/09/2024. Left ventricle is normal in size and thickness. Systolic ejection fraction is more than 70% with normal wall motion. There is mild mitral annular calcification seen. Mitral valve leaflets have fibrocalcific changes. There is trivial mitral valve regurgitation. There is mild tricuspid valve regurgitation seen. Aortic valve is trileaflet with sclerosis without stenosis or regurgitation. Right ventricle is normal size and systolic function. Estimated with systolic pressure is 23 mmHg. Recommendation Anesthesia Recommendation Anesthesia recommendation: OPTIMIZED for anesthesia
[2025-06-05] VITALS (7 sets, daily range): BP systolic 103–129; BP diastolic 48–64; PULSE 70–94; RESP 16–18; TEMP 36.3–36.6; O2SAT 95–98; BMI 33.8
--- OUTSIDE RECORDS SUMMARY | 2025-06-05 06:36 | XMS RPT_ITS | CCD ---
Author Organization [facility] Care Team Providers Care Paper Core Machine Operator Name Role Phone Ann Marie Castano Unavailable Unavailable Roberto Carlos, Rimon Unavailable Unavailable Roberto Carlos, Rimon Unavailable Unavailable Ann Marie Castano MD Primary Care Provider Ann Marie Castano MD Primary Care Provider Dr. Ann Marie Castano Primary Care Provider 1([facility])[phone] Dr. Carlos Maravilla Attending Provider [phone] Dr. Carlos Maravilla Referring Provider Dr. Ann Marie Castano Referring Provider [phone] CeDr. Carlos dominguez Other Provider 1([facility])[phone] Ann Marie Castano MD Primary Care Provider 1([facility])[phone] Igor MEYER-CMonica Attending Provider Dr. Doroteo Lobo MD Primary Care Provider 1([facility])[phone] Dr. Doroteo Lobo MD Referring Provider 1([facility])[phone] Doroteo Lobo Referring Unavailable Monica Costa Attending Unavailable Doroteo Lobo Primary Care Unavailable Rand, Jose Attending Unavailable Sesajan DENTAL HYGIENE ADMINISTRATIVE ASSISTANT, Gail Primary Care Unavailable Sahara DENTAL HYGIENE ADMINISTRATIVE ASSISTANT, Gail Referring Unavailable RALEIGH JHAVERI MD Referring Unava ilable ANN MARIE CASTANO MD Attending Unavailable ANN MARIE CASTANO MD Admitting Unavailable ANN MARIE CASTANO MD Primary Care Unavailable ANN MARIE CASTANO MD Consulting Unavailable PROVIDER, UNKNOWN Consulting Unavailable PROVIDER, UNKNOWN Consulting Unavailable PROVIDER, UNKNOWN Consulting Unavailable November TRENCH PIPE LAYER Attending Unavailable November TRENCH PIPE LAYER Admitting Unavailable November TRENCH PIPE LAYER Primary Care Unavailable November TRENCH PIPE LAYER Consulting Unavailable PROVIDER, UNKNOWN Consulting Unavailable PROVIDER, UNKNOWN Consulting Unavailable SARIKA BENITEZ MD Attending Unavailable SARIKA BENITEZ MD Admitting Unavailable November TRENCH PIPE LAYER Consulting Unavailable SARIKA BENITEZ MD Primary Care Unavailable PROVIDER, UNKNOWN Consulting Unavailable PROVIDER, UNKNOWN Consulting Unavailable FACUNDO CALVO MD Attending Unavailable FACUNDO CALVO MD Admitting Unavailable November TRENCH PIPE LAYER Referring Unavailable November TRENCH PIPE LAYER Consulting Unavailable FACUNDO CALVO MD Primary Care Unavailable PROVIDER, UNKNOWN Consulting Unavailable PROVIDER, UNKNOWN Consulting Unavailable TIRSO BRANCH MD Attending Unavailable TIRSO BRANCH MD Admitting Unavailable ANN MARIE CASTANO MD Referring Unavailable ANN MARIE CASTANO MD Consulting Unavailable TIRSO BRANCH MD Primary Care Unavailable PROVIDER, UNKNOWN Consulting Unavailable PROVIDER, UNKNOWN Consulting Unavailable PROVIDER, UNKNOWN Consulting Unavailable ANN MARIE CASTANO MD Consulting Unavailable RALEIGH JHAVERI MD Primary Care Unava ilable RALEIGH JHAVERI MD Attending Unava ilable ANN MARIE CASTANO MD Referring Unavailable RALEIGH JHAVERI MD Admitting Unava ilable PROVIDER, UNKNOWN Consulting Unavailable PROVIDER, UNKNOWN Consulting Unavailable PROVIDER, UNKNOWN Consulting Unavailable ANN MARIE CASTANO MD Admitting Unavailable ANN MARIE CASTANO MD Primary Care Unavailable ANN MARIE CASTANO MD Consulting Unavailable ANN MARIE CASTANO MD Attending Unavailable PROVIDER, UNKNOWN Consulting Unavailable PROVIDER, UNKNOWN Consulting Unavailable PROVIDER, UNKNOWN Consulting Unavailable ANN MARIE CASTANO MD Consulting Unavailable RALEIGH JHAVERI MD Admitting Unava ilable RALEIGH JHAVERI MD Attending Unava ilable DEANNETORALEIGH BANSAL MD Primary Care Unava ilable PROVIDER, UNKNOWN Consulting Unavailable PROVIDER, UNKNOWN Consulting Unavailable PROVIDER, UNKNOWN Consulting Unavailable ANN MARIE CASTANO MD Admitting Unavailable ANN MARIE CASTANO MD Primary Care Unavailable ANN MARIE CASTANO MD Consulting Unavailable ANN MARIE CASTANO MD Attending Unavailable PROVIDER, UNKNOWN Consulting Unavailable PROVIDER, UNKNOWN Consulting Unavailable PROVIDER, UNKNOWN Consulting Unavailable SEFFEZOE WETZELE FOOD PRODUCT INSPECTOR Consulting Unavailabl e SEFFENS, GAIL FOOD PRODUCT INSPECTOR Attending Unavailabl e SEFFERASHARD GAIL FOOD PRODUCT INSPECTOR Admitting Unavailabl e SEFFENS, GAIL FOOD PRODUCT INSPECTOR Primary Care Unavailabl e PROVIDER, UNKNOWN Consulting Unavailable ANN MARIE CASTANO MD Admitting Unavailable ANN MARIE CASTANO MD Primary Care Unavailable ANN MARIE CASTANO MD Consulting Unavailable ANN MARIE CASTANO MD Attending Unavailable PROVIDER, UNKNOWN Consulting Unavailable PROVIDER, UNKNOWN Consulting Unavailable PROVIDER, UNKNOWN Consulting Unavailable Allergies Allergy Classification Reported Allergen(s) Allergy Type Date of Onset Reaction(s) Facility (6 sources) Acetaminophen / HYDROcodone Drug Allergy 06-24-20 15 Hives, GI Upset, Itching [facility] (8 sources) Codeine Drug Allergy 08-18-20 05 Unknown [facility] Work Phone: [phone] (6 sources) Iodine Drug Allergy 08-18-20 05 [facility] Work Phone: [phone] (8 sources) Morphine Drug Allergy 01-28-20 08 Unknown [facility] Work Phone: [phone] (6 sources) Nitrofurantoin Drug Allergy 08-18-20 05 [facility] Work Phone: [phone] (8 sources) traMADol Drug Allergy 06-24-20 15 Hives, GI Upset, Itching [facility] (2 sources) HYDROcodone Drug Allergy 06-23-20 23 Unknown [facility] (2 sources) Nitrofurantoin Drug Allergy 06-23-20 23 Unknown [facility] (2 sources) Triiodobenzoic Acids Allergy to substance 06-23-20 23 Unknown [facility] (1 source) Codeine Drug Allergy 06-03-20 25 [facility] (1 source) HYDROcodone Drug Allergy 06-03-20 25 [facility] (1 source) Morphine Drug Allergy 06-03-20 [facility] (1 source) Nitrofurantoin Drug Allergy 06-03-20 25 [facility] (1 source) traMADol Drug Allergy 06-03-20 25 [facility] (1 source) Iodinated Contrast Media Drug allergy (disorder) 06-03-20 25 [facility] (1 source) Acetaminophen / HYDROcodone Drug Allergy [facility] Repository (1 source) benzonatate Drug Allergy [facility] (1 source) Codeine Drug Allergy [facility] (1 source) Contrast media Drug allergy (disorder) [facility] (1 source) Lisinopril Drug Allergy [facility] (1 source) Morphine Drug Allergy [facility] (1 source) Nitrofurantoin Drug Allergy [facility] (1 source) traMADol Drug Allergy [facility] (1 source) 11/26/17 (+) CDIFF; Translations: [11/26/17 (+) CDIFF] Propensity to adverse reactions (disorder) [facility] Rep[facility] (1 source) UNCHECKED ALLERGY CODE - OTHER - See chart; Translations: [UNCHECKED ALLERGY CODE - OTHER - See chart] Propensity to adverse reactions (disorder) [facility] Rep[facility] Medications Current Medications Medication Drug Class(es) Dates Sig (Normalized) Sig (Original) [id number] 200 actuat albuterol 0.09 mg/actuat metered dose inhaler (1 source) beta2-Adrenergic Agonist Start: 05-05-2025 Albuterol Sulfate (Ventolin Hfa) 90 mcg/actuation HFA aerosol inhaler Active 2 NMA INHALATION EVERY 6 HOURS as needed May 05, 2025 12:00am apixaban 5 mg oral tablet (1 source) Factor Xa Inhibitor Start: 05-05-2025 take 1 tablet by mouth twice daily Apixaban (Eliquis) 5 mg tablet Active 5 mg PO TWICE A DAY May 05, 2025 12:00am ascorbic acid 250 mg oral tablet (8 sources) Vitamin C Start: 12-22-2017 take 1 tablet by mouth once daily Ascorbic Acid (Vitamin C) 250 mg tablet Active 250 mg PO daily December 22, 2017 12:00am supplement Start: 08-18-2005 VITAMIN C 500 MG CAP Take one(1) tablet two(2) times daily. 0 08/18/2005 Active Comment on above: Take one(1) tablet t wo(2) times daily. atorvastatin 40 mg oral tablet (8 sources) HMG-CoA Reductase Inhibitor Start: take 1 tablet by mouth once daily Atorvastatin 40 mg tablet Active 40 mg PO daily December 22, 2017 12:00am cholesterol Comment on above: Take one(1) tablet d aily. biotin 2.5 mg oral capsule (4 sources) Start: take 2 capsules by mouth once Biotin 2,500 mcg capsule Active 5000 ug PO ONCE May 05, 2025 1:37pm supplement Start: 05-05-2025 Biotin (Hair, Skin And Nails (Biotin)) 10,000 mcg tablet,chewable Active ug PO May 05, 2025 12:00am Start: 12-22-2017 End: 05-05-2025 take 5 mg by mouth once Biotin 2,500 mcg capsule Dis continued 5 mg PO ONCE December 22, 2017 12:00am May 05, 2025 1:42pm supplement Start: 12-22-2017 take 5 mg by mouth once Biotin Active 5 MG PO ONCE December 22, 2017 12:00am calcium carbonate 1500 mg / cholecalciferol 500 unt oral capsule (2 sources) Vitamin D Start: 12-22-2017 take 1 capsule by mouth once daily Calcium Carbonate-Vitamin D3 (Calcium 600 With Vitamin D3) 600 mg(1,500mg) -500 unit capsule Active 1500 mg PO DAILY 0 December 22, 2017 12:00am supplement empagliflozin 10 mg oral tablet (1 source) Sodium-Glucose Cotransporter 2 Inhibitor Start: 05-05-2025 take 1 tablet by mouth once daily in the morning Empagliflozin (Jardiance) 10 mg tablet Active 5 mg PO EVERY MORNING May 05, 2025 12:00am folic acid 0.4 mg oral tablet (2 sources) Start: 12-22-2017 take 0.4 mg by mouth once daily Folic Acid 400 mcg tablet Active 0.4 mg PO daily December 22, 2017 12:00am supplement Start: 12-22-2017 take 0.4 mg by mouth once lanette y Folic Acid Active 0.4 MG PO daily December 22, 2017 12:00am hydroCHLOROthiazide 25 mg / triamterene 37.5 mg oral capsule (6 sources) Potassium-sparing Diuretic, Thiazide Diuretic Start: 01-28-2008 triamterene/hydrochlorothiaz id(DYAZIDE 37.5 MG-25 MG CAP) Take one(1) tablet daily. 0 01/28/2008 Active Comment on above: Take one(1) tablet d aily. insulin isophane, human 100 unt/ml injectable suspension (6 sources) i n j e c t 5 0 [ I U ] b y s u b c u t a n e o u s i n j e c t i o n t w i c e d a i l y insulin NPH human (NOVOLIN N) injection Inject 50 Units subcutaneously twice daily. 0 Active Comment on above: Inject 50 Units subc utaneously twice daily. Insulin Nph Human Semi-Syn 100 unit/mL cartridge (1 source) Start: 12-22-2017 Insulin Nph Human Semi-Syn 1 00 unit/mL cartridge Active 36 U SC TWICE A DAY 0 December 22, 2017 12:00am dm insulin NPH human semi-synthetic 100 unit/mL subcutaneous cartridge (1 source) Start: 12-22-2017 insulin NPH human semi-synth etic 100 unit/mL subcutaneous cartridge Active 36 UNIT SC TWICE A DAY December 22, 2017 12:00am INSULIN REGULAR, HUMAN (NOVOLIN R INJECTION) (6 sources) INSULIN REGULAR, HUMAN (NOVOLIN R INJECTION) by INJECTION(UNSPECIFIED PARENTERAL ROUTES) route. Sliding scale as needed 0 Active Comment on above: by INJECTION(UNSPECI FIED PARENTERAL ROUTES) route. Sliding scale as needed insulin, regular, human 100 unt/ml injectable solution (2 sources) Insulin Start: 12-22-2017 Insulin Regular Human (Novol in R Regular U100 Insulin) 100 unit/mL solution Active 5 U IM NEEDED as needed for dm December 22, 2017 12:00am LORazepam 0.5 mg oral tablet (8 sources) Benzodiazepine Start: 01-28-2008 Lorazepam 0.5 mg tablet Acti ve 0.5 mg PO 2 to 3 times per day December 22, 2017 12:00am anxiety Comment on above: Take one(1) tablet t hree times daily.as needed losartan potassium 100 mg oral tablet (9 sources) Angiotensin 2 Receptor Fernando Start: 05-05-2025 Losartan 100 mg tablet Activ e 25 mg PO daily May 05, 2025 1:40pm bp Start: 12-22-2017 End: 05-05-2025 take 1 tablet by mouth once daily Losartan 100 mg tablet Discontinued 100 mg PO daily December 22, 2017 12:00am May 05, 2025 1:42pm bp Start: 11-12-2008 losartan potas sium(COZAAR 50 MG TAB) Take one(1) tablet daily. 0 11/12/2008 Active Comment on above: Take one(1) tablet d aily. magnesium chloride 535 mg delayed release oral tablet (6 sources) Start: 08-18-20 05 SLOW-MAG 64 MG TAB Take one(1) tablet two(2) times daily. 0 08/18/2005 Active Comment on above: Take one(1) tablet t wo(2) times daily. magnesium oxide 400 mg oral capsule (2 sources) Start: 12-23-19 take 1 capsule by mouth once daily Magnesium Oxide 400 mg capsule Active 400 mg PO daily December 22, 2017 12:00am supplement MEDICATION, NON-DATABASE (6 sources) Start: 01-28-20 MEDICATION, NON-DATABASE CPAP 0 01/28/2008 Active Comment on above: CPAP 24 hr metoprolol succinate 50 mg extended release oral tablet (2 sources) beta-Adrenergic Fernando Start: 06-20-20 take 1 tablet by mouth once daily Metoprolol Succinate 50 mg tablet extended release 24 hr Active 50 mg PO DAILY June 20, 2023 12:00am montelukast 10 mg oral tablet (8 sources) Leukotriene Receptor Antagonist Start: 01-28-20 take 1 tablet by mouth once daily in the evening Montelukast 10 mg tablet Active 10 mg PO EVERY EVENING December 22, 2017 12:00am allergies Comment on above: Take one(1) tablet d aily at bedtime. multivitamins(DAILY VITAMIN TAB) (6 sources) Start: 02-11-20 multivitamins(DAILY VITAMIN TAB) Take one(1) tablet daily. 0 02/10/2009 Active Comment on above: Take one(1) tablet d aily. ondansetron 4 mg disintegrating oral tablet (1 source) Serotonin-3 Receptor Antagonist Start: 05-05-20 take 1 tablet by mouth every six hours as needed Ondansetron 4 mg tablet,disintegratin g Active 4 mg PO EVERY 6 HOURS as needed May 05, 2025 12:00am pantoprazole 40 mg delayed release oral tablet (1 source) Proton Pump Inhibitor Start: 05-05-20 take 1 tablet by mouth once daily in the morning Pantoprazole 40 mg tablet,delayed release (DR/EC) Active 40 mg PO daily 90 May 05, 2025 12:00am take once every morning on an empty stomach potassium chloride 20 meq powder for oral solution (14 sources) Start: 12-23-19 take 20 mEq by mouth twice daily Potassium Chloride (Klor-Con) 20 mEq packet Active 20 meq PO TWICE A DAY December 22, 2017 12:00am supplement Start: 08-18-2005 K-DUR 20 MEQ T AB Take one(1) tablet daily. 0 08/18/2005 Active Comment on above: Take one(1) tablet d aily. Take 20 mEq by mouth twice daily. sucralfate 1000 mg oral tablet (2 sources) Aluminum Complex Start: 06-23-2023 take 1 tablet by mouth twice daily Sucralfate (Carafate) 1 gram tablet Active 1 g PO TWICE A DAY 60 June 23, 2023 12:00am Triamterene-Hydrochl orothiazid (1 source) Start: 12-22-2017 take 1 capsule by mouth once daily Triamterene-Hydrochl orothiazid Active 1 CAP PO daily December 22, 2017 12:00am Vitamin B Complex (B Complex-Vitamin B12) tablet (2 sources) Start: 12-22-2017 Vitamin B Complex (B Complex-Vitamin B12) tablet Active 1 {tbl} PO daily December 22, 2017 12:00am supplement Start: 12-22-2017 take 1 tablet by araceli th once daily Vitamin B Complex (B Complex-Vitamin B12) tablet Active 1 TABLET PO daily December 22, 2017 12:00am Completed/Discontinued Medications Medication Drug Class(es) Dates Sig (Normalized) Sig (Original) aspirin 81 mg delayed release oral tablet (8 sources) Platelet Aggregation Inhibitor, Nonsteroidal Anti-inflammatory Drug Start: 01-28-2008 End: 05-05-2025 take 1 tablet by mouth once daily Aspirin (Adult Aspirin Regimen) 81 mg tablet,delayed release (DR/EC) Discontinued 81 mg PO daily December 22, 2017 12:00am May 05, 2025 1:50pm heart health Comment on above: Take one(1) tablet d aily. Lactobacillus Combination No.9 (Adult 50 Plus Probiotic) 4 billion cell capsule (2 sources) Start: 12-22-2017 End: 05-05-2025 take 4 capsules by mouth once daily Lactobacillus Combination No.9 (Adult 50 Plus Probiotic) 4 billion cell capsule Discontinued 4000 NMA PO daily December 22, 2017 12:00am May 05, 2025 1:51pm supplement Start: 12-22-2017 take 4 capsules by m outh once daily Lactobacillus Combination No.9 (Adult 50 Plus Probiotic) 4 billion cell capsule Active 4000 MMU CELLS PO daily December 22, 2017 12:00am omeprazole 20 mg delayed release oral capsule (8 sources) Proton Pump Inhibitor Start: 04-25-2023 End: 05-05-2025 take 1 capsule by mouth once daily Omeprazole 20 mg capsule,delayed release(DR/EC) Discontinued 20 mg PO DAILY April 25, 2023 12:00am May 05, 2025 2:09pm Start: 11-12-2008 omeprazole(CHRISTOPHER LOSEC 20 MG CAP) Take (1) twice daily (MAY USE GENERIC) 0 11/12/2008 Active Comment on above: Take (1) twice daily (MAY USE GENERIC) sotalol hydrochloride 120 mg oral tablet (8 sources) Antiarrhythmic Start: 12-23-19 End: 04-18-20 18 take 1 tablet by mouth every twelve hours Sotalol 120 mg tablet Discontinued 120 mg PO Q12H December 22, 2017 12:00am April 18, 2018 8:48am bp take 1 tablet by mouth twice prisca ly sotalol (SOTALOL AF) 120 mg tablet Take 120 mg by mouth twice daily. 0 Active Comment on above: Take 120 mg by mouth twice daily. Triamterene-Hydroc hlorothiazid 50-25 mg capsule (1 source) Start: 12-22-2017 End: 05-05-2025 Triamterene-Hydrochlo rothiazid 50-25 mg capsule Discontinued 1 NMA PO daily December 22, 2017 12:00am May 05, 2025 1:52pm supplement warfarin sodium 1 mg oral tablet (10 sources) Vitamin K Antagonist Start: 12-22-2017 End: 05-05-2025 take 1 tablet by mouth once daily Warfarin (Coumadin) 1 mg tablet Discontinued 1 mg PO daily December 22, 2017 12:00am May 05, 2025 1:52pm bld thinner Start: 12-22-2017 End: 05-05-2025 take 1 tablet by mouth once daily Warfarin (Coumadin) 2.5 mg tablet Discontinued 2.5 mg PO daily December 22, 2017 12:00am May 05, 2025 1:52pm bld thinner take 1 tablet by araceli th once daily warfarin (COUMADIN) 3 mg tablet Take 3 mg by mouth daily as directed. 0 Active Comment on above: Take 3 mg by mouth d aily as directed. Problems Active Problems Problem Classification Problem Date Documented Da te Episodic/Chronic Abdominal pain (16 sources) Epigastric pain; Translations: [Epigastric pain] Onset: 9 02-14-2009 Episodic Anxiety disorders (1 source) Anxiety disorder, unspecified; Translations: [Anxiety disorder, unspecified] Onset: 5 Chronic Asthma (2 sources) Asthma; Translations: [Unspecified asthma, uncomplicated] 04-16-2018 Chronic Cardiac dysrhythmias (3 sources) Atrial fibrillation; Translations: [Unspecified atrial fibrillation] Onset: 5 04-16-2018 Chronic Chronic kidney disease (1 source) Chronic kidney disease; Translations: [Chronic kidney disease, stage 3 unspecified] Onset: 5 Coronary atherosclerosis and other heart disease (1 source) Atherosclerotic heart disease of [place] coronary artery without angina pectoris; Translations: [Atherosclerotic heart disease of [place] coronary artery without angina pectoris] Onset: 5 Chronic Diabetes mellitus with complications (1 source) Type 2 diabetes mellitus with diabetic chronic kidney disease; Translations: [Type 2 diabetes mellitus with diabetic chronic kidney disease] Onset: 5 Chronic Diabetes mellitus without complication (6 sources) Diabetes mellitus; Translations: [Type 2 diabetes mellitus without complications] Onset: 5 04-16-2018 Chronic Disorders of lipid metabolism (1 source) Hyperlipidemia, unspecified; Translations: [Hyperlipidemia, unspecified] Onset: 5 Chronic Diverticulosis and diverticulitis (4 sources) Diverticulitis; Translations: [Diverticulitis of intestine, part unspecified, without perforation or abscess without bleeding] 04-16-2018 Chronic Esophageal disorders (4 sources) Gastroesophageal reflux disease; Translations: [Gastro-esophageal reflux disease without esophagitis] Onset: 5 04-25-2023 Chronic Essential hypertension (2 sources) Essential (primary) hypertension; Translations: [Essential (primary) hypertension] Onset: 5 Chronic Heart valve disorders (2 sources) Heart murmur; Translations: [Cardiac murmur, unspecified] 04-16-2018 Episodic Hemorrhoids (2 sources) Hemorrhoids; Translations: [Unspecified hemorrhoids] 04-16-2018 Episodic Hypertension with complications and secondary hypertension (1 source) Hypertensive chronic kidney disease with stage 1 through stage 4 chronic kidney disease, or unspecified chronic kidney disease; Translations: [Hypertensive chronic kidney disease with stage 1 through stage 4 chronic kidney disease, or unspecified chronic kidney disease] Onset: 5 Chronic Malaise and fatigue (2 sources) Fatigue; Translations: [Other fatigue] 04-16-2018 Episodic Mood disorders (1 source) Mood disorders; Translations: [Depression, unspecified] Onset: Nausea and vomiting (3 sources) Nausea; Translations: [Nausea] 04-16-2018 Episodic Nutritional deficiencies (1 source) Vitamin D deficiency, unspecified; Translations: [Vitamin D deficiency, unspecified] Onset: Chronic Osteoarthritis (3 sources) Arthritis; Translations: [Unspecified osteoarthritis, unspecified site] Onset: 5 04-16-2018 Chronic Other and ill-defined heart disease (2 sources) Heart disease; Translations: [Heart disease, unspecified] 04-16-2018 Chronic Other and unspecified benign neoplasm (2 sources) History of polyp of colon; Translations: [Personal history of colonic polyps] 04-11-2023 Episodic Other and unspecified benign neoplasm (1 source) Personal history of colonic polyps; Translations: [Personal history of colonic polyps] 04-25-2023 Episodic Other eye disorders (2 sources) H/O: Bilateral cataract extraction; Translations: [Cataract extraction status, right eye] 04-16-2018 Episodic Comment on above: 2012 Other gastrointestinal disorders (8 sources) Diarrhea; Translations: [Diarrhea, unspecified] 04-11-2012 Episodic Other hereditary and degenerative nervous system conditions (1 source) Essential tremor; Translations: [Essential tremor] Onset: Chronic Other infections; including parasitic (2 sources) History of bacterial infection; Translations: [Personal history of other infectious and parasitic diseases] 04-16-2018 Episodic Other nutritional; endocrine; and metabolic disorders (1 source) Hypomagnesemia; Translations: [Hypomagnesemia] Onset: 5 Chronic Other nutritional; endocrine; and metabolic disorders (2 sources) Weight decreased; Translations: [Abnormal weight loss] 05-05-2025 Episodic Residual codes; unclassified (2 sources) Sleep apnea; Translations: [Sleep apnea, unspecified] 04-16-2018 Chronic Residual codes; unclassified (1 source) Obstructive sleep apnea (adult) (pediatric); Translations: [Obstructive sleep apnea (adult) (pediatric)] Onset: 5 Chronic Residual codes; unclassified (2 sources) Other specified postprocedural states; Translations: [History of breast surgery] 04-16-2018 Episodic Comment on above: Right breast-2001 Residual codes; unclassified (2 sources) History of operative procedure on shoulder; Translations: [Other specified postprocedural states] 04-16-2018 Episodic Comment on above: Left shoulder partia l replacement- 2005 Residual codes; unclassified (2 sources) History of cardiac catheterization; Translations: [Other specified postprocedural states] 04-16-2018 Episodic Comment on above: 05/2017 Residual codes; unclassified (2 sources) Past history of procedure; Translations: [Other specified postprocedural states] 04-16-2018 Episodic Comment on above: bilaterally- 2001 Spondylosis; intervertebral disc disorders; other back problems (2 sources) Back problem; Translations: [Dorsopathy, unspecified] 04-16-2018 Episodic Substance-related disorders (1 source) Nicotine dependence, unspecified, uncomplicated; Translations: [Nicotine dependence, unspecified, uncomplicated] Onset: 5 Chronic Unclassified (1 source) Unknown / UNK(Unknown) Onset: 7 Past or Other Problems Problem Classification Problem Date Documented Da te Episodic/Chronic Abdominal hernia (6 sources) Diaphragmatic hernia; Translations: [Diaphragmatic hernia without obstruction or gangrene] Onset: 03-14-2008 03-14-2008 Episodic Acute and unspecified renal failure (1 source) Acute kidney failure, unspecified; Translations: [Acute kidney failure, unspecified] Onset: 12-08-2024 Episodic Allergic reactions (3 sources) Allergy status to narcotic agent status; Translations: [Allergy status to other drugs, medicaments and biological substances status] Onset: 12-08-2024 Episodic Calculus of urinary tract (6 sources) Kidney stone; Translations: [Calculus of kidney] Onset: 08-18-2005 08-18-2005 Episodic Coronary atherosclerosis and other heart disease (1 source) Presence of aortocoronary bypass graft; Translations: [Presence of aortocoronary bypass graft] Onset: 12-08-2024 Episodic Fluid and electrolyte disorders (1 source) Hypokalemia; Translations: [Hypokalemia] Onset: 12-08-2024 Episodic Gastritis and duodenitis (6 sources) Acute gastritis; Translations: [Acute gastritis without bleeding] Onset: 03-14-2008 03-14-2008 Episodic Nonspecific chest pain (3 sources) Chest pain, unspecified; Translations: [Chest pain, unspecified] Onset: 12-08-2024 Episodic Other aftercare (1 source) alf (current) use of insulin; Translations: [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) use of insulin] Onset: 12-08-2024 Episodic Other aftercare (1 source) 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; Translations: [alf (current) use of oral hypoglycemic drugs] Onset: 12-08-2024 Episodic Other aftercare (1 source) alf (current) use of anticoagulants; Translations: [alf (current) use of anticoagulants] Onset: 12-08-2024 Episodic Residual codes; unclassified (1 source) Acquired absence of other specified parts of digestive tract; Translations: [Acquired absence of other specified parts of digestive tract] Onset: 12-08-2024 Episodic Residual codes; unclassified (1 source) Acquired absence of both cervix and uterus; Translations: [Acquired absence of both cervix and uterus] Onset: 12-08-2024 Episodic Unclassified (1 source) POSITIVE STRESS TEST Onset: 06-15-2017 Unclassified (2 sources) h/o lap sigmoid colectomy 04-27-2022 Comment on above: 04/07 Results Test Name Value Interpretation Reference Range Facility MR/Girma 06-04-2025 MR/EMMA [facility] Medical Records Department [address] [place] [address] PAT - Anesthesia 06/04/25 1501 MR#: [id number] Acct: [id number] Name: CARMEN HARVEY Rep #: [id number] : 1945 79 From: Thiago Beltran MD PCP: Gail Shoemaker NP Status:PRE SD Y Race: C Location: EN Pre-Assessment Diagnosis/Proposed Procedure Planned Operative Procedure(s): EGD, COLONOSCOPY Anesthesia History 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 When Was Last Pacemaker Check QUESTION #4 FULL TEXT: You/Your Family Experience fever (hyperthermia) with Anesthesia Last Oral Intake Last Oral intake: Last Oral Intake NPO since Meds taken in AM with sips of water? 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 - international logistics coordinator: PONV - international logistics coordinator Female Yes 06/03/25 15:02 HX of Motion Sickness No 06/03/25 15:02 HX of N/V After Surgery No 06/03/25 15:02 Non-Smoker Yes 06/03/25 15:02 Duration of Surgery greater No 06/03/25 15:02 than 60 minutes Number of Risk Factors 2 06/03/25 15:02 PONV Score Moderate Risk 06/03/25 15:02 Height Weight Height Weight: Anesthesia: Height Weight Height 4 ft 11 in 05/05/25 13:48 Respiratory Assessment Respiratory Assessment - international logistics coordinator: Respiratory Tract Infection Hx - international logistics coordinator Hx Respiratory Tract Infection No 06/03/25 15:02 STOP Sleep Apnea STOP Sleep Apnea - international logistics coordinator: STOP Sleep Apnea - international logistics coordinator Hx Hypertension Yes 06/03/25 15:02 Hx Sleep Apnea Yes 06/03/25 15:02 CPAP Yes 06/03/25 15:02 BIPAP No 06/03/25 15:02 Do you snore loudly (louder than talking or can be heard Do you often feel tired/ fatigued/ sleepy during daytime? Has anyone observed you stop breathing during sleep? STOP Results Positive 06/03/25 15:02 QUESTION #5 FULL TEXT : Do you snore loudly (louder than talking or can be heard through closed doors)? 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 - international logistics coordinator: Tobacco Use History - international logistics coordinator Tobacco Use Smoking Status Former smoker 06/03/25 15:02 Hx Tobacco Use No 06/03/25 15:02 Years Smoking Packs Smoked per Day Smoking Cessation Date was No - quit smoking greater 06/03/25 15:02 within the last 15 years than 15 years ago Hx Smoking Cessation Date 08/21/86 06/03/25 15:02 Hx Smoking Cessation Counseling Hematologic Medial History Hematologic Hx - international logistics coordinator: Hematologic Medical Hx - screen tacker Hx of Blood Transfusion No 06/03/25 15:02 Hx of Transfusion in last 3 No 06/03/25 15:02 Months Date of Last Transfusion (if within last 3 months) Ever experience any problems No 06/03/25 15:02 with transfusion(s)? Specify any problems Hx of Preganancy in last 3 No 06/03/25 15:02 Months Nurse Filling Out Transfusion [facility] 06/03/25 15:02 Questions: Date: 06/03/25 06/03/25 15:02 Time: 15:06/03/25 15:02 Patient unable to answer at this time (ie. confused, unrespo /Reproduction History /Reproductive History - international logistics coordinator: /Reproductive Hx- international logistics coordinator Hx Now Gestational Age (in weeks): EDC: Hx Hx Para Hx Section SAB PFSH Medical History Insulin dependent diabetes mellitus History of renal disease Back pain Difficulty swallowing Heartburn Gastric reflux History of pain when walking History of atrial fibrillation Wears glasses Post-menopausal History of steroid therapy Fatty liver High cholesterol Scoliosis Dietary restriction History of hiatal hernia History of Clostridium difficile infection History of diverticulitis Diverticulosis Former smoker CPAP (continuous positive airway pressure) dependence Hypertension Cardiology follow-up encounter History of echocardiogram History of stress test Diverticulitis Hx of Clostridium difficile infection Hemorrhoids Acid reflux Diarrhea Nausea Asthma Sleep apnea A-fib Heart disease Heart murmur Arthritis Back problem Diabetes Fatigue Home Medications ???Medication ???Instructions ???Recor (more content not included)... Normal [facility] GLUTAMIC ACID DECARBOXLASE A NTIBODY [CCLon 06-03-2025 Glutamic Ac Decar Ab <5.0 Normal <=5.0 [facility] Comment on above: Result Comment: Anti -glutamic acid decarboxylase antibody (GAD65) test usually in conjunction with another test such as IA-2 antibody is used as an aid in establishing the autoimmune nature of previously-diagnosed type I diabetes mellitus or in predicting of progression to type I diabetes mellitus in patients with certain autoimmune diseases including autoimmune gastritis among others. It is also used as an aid in diagnosis of stiff person syndrome and certain autoimmune nervous system diseases. Clinical correlation is required. [facility] [address] [place] [address] Derw Nj III, M.D. [id number] Performed By: #### 2 56240 #### [facility],[address] [place] [address] CBC + DIFFon 06-02-2025 Baso # 0.01 x10EE3/UL Normal 0.00 - 0.10 [facility] Comment on above: Performed By: #### 2 40593 #### [facility],[address] [place] [address] Basophils/100 WBC (Bld) 0.1 % Normal 0.0 - 2.0 [facility] Comment on above: Performed By: #### 2 16874 #### [address] [address] CBC + DIFF Normal [facility] Comment on above: Result Comment: CBC- COMPLETE BLOOD COUNT Performed By: #### 2 19593 #### [address] [address] EO # 0.09 x10EE3/UL Normal 0.00 - 0.50 [facility] Comment on above: Performed By: #### 2 03500 #### [address] [address] Eosinophils/100 WBC (Bld) 1.3 % Normal 0.0 - 7.0 [facility] Comment on above: Performed By: #### 2 51635 #### [address] [address] Erythrocyte distribution width (RBC) [Ratio] 15.2 % Normal 12.0 - 15.6 [facility] Comment on above: Performed By: #### 2 48334 #### [address] [address] Hematocrit (Bld) [Volume fraction] 36.2 % Normal 34.0 - 46.0 [facility] Comment on above: Performed By: #### 2 33413 #### [facility],[address] [place] [address] Hemoglobin (Bld) [Mass/Vol] 12.0 g/dL Normal 12.0 - 16.0 [facility] Comment on above: Performed By: #### 2 93599 #### [facility],[address] [place] [address] Lymph # 1.24 x10EE3/UL Normal 0.80 - 2.80 [facility] Comment on above: Performed By: #### 2 58892 #### [facility],[address] [place] [address] Lymphocytes/100 WBC (Bld) 18.1 % Low 20.0 - 45.0 [facility] Comment on above: Performed By: #### 2 64744 #### [facility],[address] [place] [address] MANUAL DIFF N/A Normal [facility] Comment on above: Performed By: #### 2 89004 #### [facility],[address] [place] [address] MCH (RBC) [Entitic mass] 28 pg Normal 27 - 33 [facility] Comment on above: Performed By: #### 2 88740 #### [facility],[address] [place] [address] MCHC 33 X10 3 Normal 32 - 36 [facility] Comment on above: Performed By: #### 2 43454 #### [facility],[address] [place], [place] [address] MCV (RBC) [Entitic vol] 84 fL Normal 80 - 99 [facility] Comment on above: Performed By: #### 2 18971 #### [facility],[address],[place] [address] [place] # 0.55 x10EE3/UL Normal 0.20 - 1.00 [facility] Comment on above: Performed By: #### 2 68325 #### [address] [address] MONOS % 8.0 % Normal 0.0 - 10.0 [facility] Comment on above: Performed By: #### 2 43191 #### [facility],[address] [place] [address] Morphology Hardy (Bld) [Interp] N/A Normal [facility] Comment on above: Performed By: #### 2 83101 #### [place] [address] Neut # 4.95 x10EE3/UL Normal 1.50 - 7.10 [facility] Comment on above: Performed By: #### 2 07223 #### [place] [address] Neutrophils/100 WBC (Bld) 72.4 % Normal 46.0 - 76.0 [facility] Comment on above: Performed By: #### 2 66879 #### [place] [address] PLATELET 206 x10EE3/UL Normal 150 - 450 [facility] Comment on above: Performed By: #### 2 12500 #### [facility],[address] [place] [address] Platelet mean volume (Bld) [Entitic vol] 8.2 fL Normal 6.6 - 10.5 [facility] Comment on above: Result Comment: AUTO MATED DIFFERENTIAL Performed By: #### 2 50229 #### [place] [address] RBC 4.33 x 10EE6/UL Normal 4.10 - 5.30 [facility] Comment on above: Performed By: #### 2 07381 #### [facility],[address] [place] [address] WBC 6.8 x 10EE3/UL Normal 4.5 - 10.8 [facility] Comment on above: Performed By: #### 2 41445 #### [facility],[address] [place] [address] CMP with eGFRon 06-02-2025 AGE 79 years Normal [facility] Comment on above: Performed By: #### 2 96511 #### [facility],[address] [place] [address] Albumin [Mass/Vol] 3.2 g/dL Low 3.4 - 5.0 [facility] Comment on above: Performed By: #### 2 05234 #### [facility],[address] [place] [address] Albumin/Globulin [Mass ratio] 1.0 {ratio} Normal 0.9 - 1.6 [facility] Comment on above: Performed By: #### 2 84734 #### [facility],[address] [place] [address] ALK PHOS 121 U/L High 46 - 116 [facility] Comment on above: Performed By: #### 2 26186 #### [facility],[address] [place] [address] ALT [Catalytic activity/Vol] 17 U/L Normal 16 - 63 [facility] Comment on above: Performed By: #### 2 82103 #### [facility],[address] [place] [address] Anion gap [Moles/Vol] 8 mmol/L Low 10 - 20 [facility] Comment on above: Performed By: #### 2 19824 #### [facility],[address] [place] [address] AST [Catalytic activity/Vol] 16 U/L Normal 13 - 39 [facility] Comment on above: Performed By: #### 2 14836 #### [facility],[address] [place] [address] B/C RATIO 19 ratio Normal 0 - 30 [facility] Comment on above: Performed By: #### 2 82331 #### [facility],[address] [place] [address] Bilirubin [Mass/Vol] 2.2 mg/dL High 0.2 - 1.0 [facility] Comment on above: Performed By: #### 2 01012 #### [facility],[address] [place] [address] Calcium [Mass/Vol] 9.1 mg/dL Normal 8.5 - 10.1 [facility] Comment on above: Performed By: #### 2 85302 #### [facility],[address] [place] [address] Chloride [Moles/Vol] 104 mmol/L Normal 98 - 107 [facility] Comment on above: Performed By: #### 2 58957 #### [facility],[address] [place] [address] CMP with eGFR Normal [facility] Comment on above: Result Comment: COMP REHENSIVE METABOLIC PANEL Performed By: #### 2 15927 #### [facility],[address] [place] [address]36 CO2 [Moles/Vol] 30.5 mmol/L Normal 21.0 - 32.0 [facility] Comment on above: Performed By: #### 2 25049 #### [facility],[address] [place] [address] Creatinine [Mass/Vol] 0.89 mg/dL Normal 0.55 - 1.02 [facility] Comment on above: Performed By: #### 2 05604 #### [facility],[address] [place] [address] GFR/1.73 sq M.predicted among non-blacks MDRD (S/P/Bld) [Vol rate/Area] mL/min/{1.73_m2} Normal 60 - 999 [facility] Comment on above: Performed By: #### 2 71396 #### [facility],[address] [place] [address] Result Comment: ACCO RDING TO THE NATIONAL KIDNEY DISEASE EDUCATION PROGRAM(NKDE), A NORMAL eGFR IS A VALUE GREATER THAN OR EQUAL TO 60 ML/MIN/1.73 SQ METERS. CHRONIC KIDNEY DISEASE: <60mL/MIN/1.73 SQ METERS KIDNEY FAILURE: <15mL/MIN/1.73 SQ METERS THIS TEST SHOULD ONLY BE USED FOR PATIENTS 18 YEARS OF AGE AND OLDER. Globulin (S) [Mass/Vol] 3.2 g/dL Normal 1.5 - 3.8 [facility] Comment on above: Performed By: #### 2 80939 #### [address] [address] Glucose [Mass/Vol] 118 mg/dL High 74 - 106 [facility] Comment on above: Performed By: #### 2 74934 #### [facility],[address] [place] [address] Potassium [Moles/Vol] 3.6 mmol/L Normal 3.5 - 5.1 [facility] Comment on above: Performed By: #### 2 98766 #### [facility],[address] [place] [address] Protein [Mass/Vol] 6.4 g/dL Normal 6.4 - 8.2 [facility] Comment on above: Performed By: #### 2 68946 #### [facility],[address] [place] [address] Sodium [Moles/Vol] 139 mmol/L Normal 136 - 145 [facility] Comment on above: Performed By: #### 2 93329 #### [facility],[address] [place] [address] Urea nitrogen [Mass/Vol] 17 mg/dL Normal 7 - 18 [facility] Comment on above: Performed By: #### 2 24329 #### [facility],[address] [place], [place] [address] GAD65 Ab Ser-aCncon 06-02-20 25 Glutamate decarboxylase 65 Ab Qn (S) <5.0 Normal <=5.0 [facility] Comment on above: Order Comment: Abimbola bermudez Type: BLOOD SPECIMEN Ordering Facility: [facility] Address: [address] [place] [address] Result Comment: Anti -glutamic acid decarboxylase antibody (GAD65) test usually in conjunction with another test such as IA-2 antibody is used as an aid in establishing the autoimmune nature of previously-diagnosed type I diabetes mellitus or in predicting of progression to type I diabetes mellitus in patients with certain autoimmune diseases including autoimmune gastritis among others. It is also used as an aid in diagnosis of stiff person syndrome and certain autoimmune nervous system diseases. Clinical correlation is required. Performed By: #### 1 3926-1 #### [facility] CLIA [id number] [address] [place] [address] [place] Glutamate decarboxylase 65 A b Qn (S)on 06-02-2025 GLUTAMIC ACID DECARBOXYLAS AB QUALITATIVE Negative Normal Negative [facility] Comment on above: Order Comment: Abimbola bermudez Type: BLOOD SPECIMEN Ordering Facility: [facility] Address: [address] [place] [address] Performed By: #### 1 3926-1 #### [facility] CLIA [id number] [address] [place] [address] [place] HEMOGLOBIN A1C (POM)on 06-02 Glucose [Mass/Vol] 139.9 mg/dL High 0.0 - 0.0 [facility] Comment on above: Result Comment: BLDo HEMOGLOBIN A1C REFERENCE RANGESBLDo Suggested Diagnosis HbA1c(%) HbA1C (mmol/mol Diabetic >/=6.5 >/=48 Prediabetes 5.7 - 6.4 39 - 47 Normal <5.7 <39 Performed By: #### 2 27997 #### [facility],[address] [place], [place] [address] HbA1c (Bld) [Mass fraction] 6.5 % Normal 0.0 - 6.5 [facility] Comment on above: Performed By: #### 2 23798 #### [facility],[address] [place] [address] IgA SerPl-mCncon 06-02-2025 IgA [Mass/Vol] 265 mg/dL Normal 70-400 [facility] Comment on above: Order Comment: Speci men Type: BLOOD SPECIMEN Ordering Facility: [facility] Address: [address] [place] [address] Performed By: #### 2 458-8 #### [facility] CLIA [id number] [address] [place] [address] OF [facility] LIPID PROFILEon 06-02-2025 Cholesterol [Mass/Vol] 89 mg/dL Normal 0 - 240 [facility] Comment on above: Performed By: #### 2 80010 #### [facility],[address] [place] [address] Cholesterol in HDL [Mass/Vol] 47 mg/dL Normal 40 - 60 [facility] Comment on above: Performed By: #### 2 41995 #### [facility],[address] [place] [address] Cholesterol in LDL [Mass/Vol] 23 mg/dL Normal 0 - 129 [facility] Comment on above: Performed By: #### 2 28470 #### [facility],[address] [place] [address] Cholesterol.total/Ch olesterol in HDL [Mass ratio] 1.9 {ratio} Normal 0.0 - 5.0 [facility] Comment on above: Performed By: #### 2 36670 #### [facility],[address] [place] [address] Lipid 1996 panel Normal [facility] Comment on above: Result Comment: LIPI D PROFILE Performed By: #### 2 20474 #### [facility],[address] [place] [address] Triglyceride [Mass/Vol] 93 mg/dL Normal 0 - 150 [facility] Comment on above: Performed By: #### 2 22610 #### [facility],[address] [place] [address] MAGNESIUMon 06-02-2025 Magnesium [Mass/Vol] 1.8 mg/dL Normal 1.8 - 2.4 [facility] Comment on above: Performed By: #### 2 63265 #### [facility],[address] [place] [address] VITAMIN B-12on 06-02-2025 Cobalamin (Vitamin B12) [Mass/Vol] 1169 pg/mL High 193 - 986 [facility] Comment on above: Performed By: #### 2 44932 #### [facility],[address] [place] [address] Gastroenterology Visit Repor ton 05-05-2025 Gastroenterology Visit Report [facility] Gastroenterology [address] [place] [address] OFFICE VISIT Date of Service: 05/05/25 MR#: [id number] Acct: [id number] Name: CARMEN HARVEY Rep #: [id number] : 1945 Provider: NICOLÁS palumbo Age/Sex: 79/F Location: [facility] Status: Signed Intake Vital Signs 06/23/23 08:36 05/05/25 13:48 Height 4 ft 11 in 4 ft 11 in Weight: 173 lb 4 oz BMI 34.9 BP 125/73 H Respiration 18 Pulse 78 Temp 97.9 F Temp Source Temporal Pulse Oximetry (%) 98 Oxygen Delivery Method room air Intake Visit Reasons: Gastritis Chief Complaint: pain Staff Writer Required: No Accompanied by: Is patient in pain?: No Allergies codeine Allergy (Unknown, Verified 05/05/25 13:45) Unknown hydrocodone (From [place]) Allergy (Unknown, Verified 05/05/25 13:45) Unknown Iodinated Contrast Media (Iodinated Contrast- Oral and IV Dye) Allergy (Unknown, Verified 05/05/25 13:45) Unknown morphine Allergy (Unknown, Verified 05/05/25 13:45) Unknown nitrofurantoin (From Macrodantin) Allergy (Unknown, Verified 05/05/25 13:45) Unknown tramadol Allergy (Unknown, Verified 05/05/25 13:45) Unknown Medications ???Medication ???Instructions ???Recorded ???Confirmed ???Type ascorbic acid (vitamin C) 250 mg 250 mg PO QDAY supplement 12/22/17 05/05/25 History tablet atorvastatin 40 mg tablet 40 mg PO QDAY cholesterol 12/22/17 05/05/25 History calcium 600 mg (as 1,500 mg PO DAILY supplement 12/2205/05/25 History carbonate)-vitamin D3 12.5 mcg (500 unit) capsule (Calcium with Vit D3) folic acid 400 mcg tablet 0.4 mg PO QDAY supplement 12/22/17 05/05/25 History insulin NPH human semi-syn 100 36 unit subcut BID dm 12/22/17 History unit/mL subcutaneous cartridge insulin regular human 100 unit/mL 5 unit IM PRN PRN dm 12/22/17 History injection solution (Novolin R Regular U-100 Insulin) lorazepam 0.5 mg tablet 0.5 mg PO BID-TID anxiety 12/22/17 05/05/25 History magnesium oxide 400 mg PO QDAY supplement 12/22/17 05/05/25 History montelukast 10 mg tablet 10 mg PO QPM allergies 12/22/17 History potassium chloride 20 mEq oral 20 meq PO BID supplement 12/22/17 05/05/25 History packet (Klor-Con) vitamin B complex (B 1 tab PO QDAY supplement 12/22/17 05/05/25 History Complex-Vitamin B12 tablet) metoprolol succinate 50 mg 50 mg PO DAILY 06/20/23 05/05/25 H istory tablet,extended release 24 hr sucralfate 1 gram tablet (Carafate) 1 g PO BID #60 tabs 06/23/23 Rx albuterol sulfate 90 mcg/actuation 2 puff inhalation Q6H PRN 05/05/25 History aerosol inhaler (Ventolin HFA) apixaban 5 mg tablet (Eliquis) 5 mg PO BID 05/05/25 05/05/25 Hist ory biotin 10,000 mcg chewable tablet mcg PO 05/05/25 05/05/25 History (Hair, Skin and Nails (biotin)) biotin 2,500 mcg capsule 5,000 mcg PO ONCE supplement 05/0505/05/25 History empagliflozin 10 mg tablet 5 mg PO QAM 05/05/25 05/05/25 Hist ory (Jardiance) losartan 100 mg tablet 25 mg PO QDAY bp 05/05/25 05/05/25 History ondansetron 4 mg disintegrating 4 mg PO Q6H PRN 05/05/25 05/05/25 History tablet pantoprazole 40 mg tablet,delayed 40 mg PO QDAY #90 tabs 05/05/25 0 05/05/25 Rx release Have you fallen in the past year?: No PFSH Medical History Wears glasses Post-menopausal History of steroid therapy Fatty liver High cholesterol Scoliosis Dietary restriction History of hiatal hernia History of Clostridium difficile infection History of diverticulitis Diverticulosis Former smoker CPAP (continuous positive airway pressure) dependence Hypertension Cardiology follow-up encounter History of echocardiogram History of stress test Diverticulitis Hx of Clostridium difficile infection Hemorrhoids Acid reflux Diarrhea Nausea Asthma Sleep apnea A-fib Heart disease Heart murmur Arthritis Back problem Diabetes Fatigue Surgical History History of partial colectomy History of cardiac radiofrequency ablation Hx of bilateral cataract extraction Hx of cardiac cath History of surgery on arm History of shoulder surgery Hx of breast surgery Hx of breast biopsy Hx of CABG Hx of hysterectomy Hx of cholecystectomy Hx of tubal ligation Family History Mother Diabetes Hypertension Heart disease Hyperlipidemia Father Heart disease Diabetes Hyperlipidemia Daughter Seizures Sister CVA (cerebral vascular accident) Social History Smoking Status: Former smoker second hand (more content not included)... Normal [facility] ED MED ADMINISTRATION DETAIL on 04-14-2025 ED MED ADMINISTRATION DETAIL Cuff Stitcher - CARMEN HARVEY, : 1945, , Medication Administration Record [address] [place] [address] [id number] 04/09/2025 Patient: CARMEN HARVEY Sex: Female : 1945 Age: 79y MEASUREMENTS: Wt: 77.1 kg, Ht/Manuel: 59.0 in, BMI: 34.34 ALLERGIES: Iodinated Contrast Media, Macrodantin, [place], Tessalon Perles, codeine, lisinopril, morphine, tramadol Medication Ordered Medication Administration Date/Time Ondansetron IVP 4 18:18 04/09 Ondansetron IVP 4 mg given via Site# 1. Allergies Given mg (NOW x1) verified and confirmed 5 rights. IV patency established. IV site 18:18 04/09/2025 checked: no pain, redness, or swelling. IV flushed thoroughly Mallika Dixon R.N. pre-medication administration. IVP given by nurse. Information Scanned reviewed with patient and spouse including reason for taking this medication. - 18:19 Mallika Dixon R.N. IV NS 0.9 % 1000 18:20 04/09 IV NS 0.9 % 1000 mL started in bag#1 1000 mL at Started mL at 500 mL/hr 500 mL/hr via Site# 1. Allergies verified and confirmed 5 rights. Via 18:20 04/09/2025 (NOW x1) IV pump. IV patency established. IV site checked: no pain, redness, Mallika Dixon R.N. or swelling. IV flushed thoroughly pre-medication administration. Stopped Information reviewed with patient and spouse including reason for 19:55 04/09/2025 taking this medication. - 18:20 Mallika Dixon R.N. Whitney Osborn R.N. Scanned 19:55 04/09 Medication Discontinued: bag #1 infused. Total amount infused: 1000 mL. IV patency established. IV site checked: no pain, redness, or swelling. IV flushed thoroughly post-medication administration. - 22:55 Whitney Osborn R.N. 1 of 2 Cuff Stitcher - CARMEN HARVEY, : 1945, , Medication Ordered Medication Administration Date/Time MethylPREDNISolo 18:22 04/09 MethylPREDNISolone Sodium Succ (Solu-Medrol) IVP Given ne Sodium Succ 40 mg given via Site# 1. Allergies verified and confirmed 5 rights. IV 18:22 04/09/2025 (Solu-Medrol) IVP patency established. IV site checked: no pain, redness, or swelling. Mallika Dixon R.N. 40 mg (NOW x1) IV flushed thoroughly pre-medication administration. IVP given by Scanned nurse. Information reviewed with patient and spouse including reason for taking this medication. - 18:24 Mallika Dixon R.N. DiphenhydrAMINE 18:26 04/09 DiphenhydrAMINE (Benadryl) IVP 25 mg given via Given (Benadryl) IVP 25 Site# 1. Allergies verified and confirmed 5 rights. IV patency 18:26 04/09/2025 mg (NOW x1) established. IV site checked: no pain, redness, or swelling. IV Arlyn Borrego.N. flushed thoroughly pre-medication administration. IVP given by Scanned nurse. Information reviewed with patient and spouse including reason for taking this medication and sedative warning. Medication Wastage: 25 mg wasted. - 18:27 Mallika Dixon R.N. KetorOLAC 18:40 04/09 KetorOLAC (Toradol) IVP 15 mg given via Site# 1. Given (Toradol) IVP 15 mg Allergies verified and confirmed 5 rights. IV patency established. IV 18:40 04/09/2025 (NOW x1) site checked: no pain, redness, or swelling. IV flushed thoroughly Mallika Dixon R.N. pre-medication administration. IVP given by nurse. Information Scanned reviewed with patient and spouse. Medication Wastage: 15 mg wasted. - 18:41 Mallika Dixon R.N. 19:30 04/09 Medication Response: No adverse reaction. Pain is improving. - 22:56 Whitney Osborn R.N. 2 of 2 Normal [facility] ED NURSES CLINICAL NOTEon ED NURSES CLINICAL NOTE Nurse Narrative - CARMEN HARVEY, : 1945, , Nurse Clinical Narrative [address] [place] [address] [id number] 04/09/2025 15:08:00 Patient: CARMEN HARVEY Sex: Female : 1945 Age: 79y Disposition: Discharge to Home Disposition Decision Time: 21:04/09/2025 Departure Time: 21:04/09/2025 TRIAGE Arrived by private vehicle. Historian: (patient). Accompanied by family. Primary physician (Omaira). Triage time: 15:32 04/09/2025. Acuity: LEVEL 3. Chief Complaint: ABDOMINAL PAIN. Alert. No acute distress. Onset. (Monday). ( Patient was diagnosed with a kidney stone on Monday. She reports that the pain in her side is not radiating into her abdomen and is severe.). SEPSIS SCREEN: NEGATIVE. SIRS criteria negative. No possible sources of infection. -- 15:42 04/09/25 EDT Sophia SoriaNLesia 15:41 04/09/25. BP: 107/41 MAP: 63. HR: 80. RR: 16. O2 saturation: 100% Temperature: 97.4 F. Pain level now 8/10. Describes the pain as sharp. -- 15:41 04/09/25 KERRI Medrano R.N. Measurements: 15:41 04/09/25 Wt: 77.1 kg, Ht/Manuel: 59.0 in, BMI: 34.34 -- 15:42 04/09/25 [facility] Barrie Medrano R.N. Medications: hydrochlorothiazide 12.5 mg tablet -- 15:38 04/09/25 [facility] Barrie Medrano R.N. losartan 25 mg tablet: 25 mg once a day every AM. -- 15:38 04/09/25 KERRI Medrano R.N. 1 of 5 Nurse Narrative - CARMEN HARVEY, : 1945, , Flomax 0.4 mg capsule: 0.4 mg once a day every AM. -- 15:39 04/09/25 [facility] Arlyn Soria.Supriya Percocet 5 mg-325 mg tablet: 1 tab every 6 hours as needed for pain. -- 15:40 04/09/25 T Barrie Medrano R.N. Allergies: morphine -- 15:37 04/09/25 T Arlyn Soria.Supriya codeine -- 15:37 04/09/25 [facility] Arlyn Soria.Tiburcio. Iodinated Contrast Media -- 15:37 04/09/25 [facility] Arlyn Soria.N. Macrodantin -- 15:37 04/09/25 [facility] Arlyn Soria.Tiburcio. lisinopril -- 15:37 04/09/25 [facility] Arlyn Soria.Tiburcio. tramadol -- 15:37 04/09/25 [facility] Arlyn Soria.Supriya [place] -- 15:37 04/09/25 [facility] Arlyn Soria.Supriya Tessalon Perles -- 15:37 04/09/25 [facility] Arlyn Soria.Tiburcio. Problems: Coronary artery bypass grafting (procedure) -- 15:37 04/09/25 [facility] Barrie Medrano R.N. Anemia -- 15:37 04/09/25 T Arlyn Soria.Tiburcio. Chronic kidney disease stage 3 -- 15:37 04/09/25 [facility] Arlyn Soria.Tiburcio. Osteoarthritis of multiple joints -- 15:37 04/09/25 [facility] Arlyn Sroia.Tiburcio. Gastroparesis -- 15:37 04/09/25 T Arlyn Soria.Tiburcio. Gastroesophageal Reflux Disease -- 15:37 04/09/25 T Barrie Medrano R.N. Mitral Insufficiency -- 15:37 04/09/25 T Arlyn Soria.Tiburcio. Coronary Artery Disease -- 15:37 04/09/25 T Arlyn Soria.Tiburcio. Hypertension -- 15:37 04/09/25 [facility] Arlyn Soria.Tiburcio. Sleep Apnea -- 15:37 04/09/25 T Arlyn Soria.Tiburcio. Depression -- 15:37 04/09/25 EDT Barrie Medrano R.N. Anxiety disorder -- 15:37 04/09/25 [facility] Barrie Medrano R.N. Hyperbilirubinemia -- 15:37 04/09/25 EDT Barrie Medrano R.N. Hyperlipidemia -- 15:37 04/09/25 EDT Barrie Medrano R.N. Diabetes Mellitus Type 2 -- 15:37 04/09/25 [facility] Barrie Medrano R.N. Surgeries: Gallbladder Surgery -- 15:38 04/09/25 EDT Barrie Medrano R.N. Hysterectomy -- 15:38 04/09/25 EDT Barrie Medrano R.N. Appendectomy -- 15:38 04/09/25 [facility] Barrie Medrano R.N. Bowel Resection -- 15:38 04/09/25 EDT Barrie Medarno R.N. 2 of 5 Nurse Narrative - CARMEN HARVEY, : 1945, , History 15:32 04/09/25. SOCIAL HX: Never smoker. No alcohol use or drug use. The patient has not traveled outside the [place] Infectious disease exposure: No infectious disease exposure. ABUSE ASSESSMENT: Abuse denied. No suspicion of abuse. No report of abuse. SELF HARM ASSESSMENT: Self harm assessment was performed. The patient answered no to the question(s) Do you have a plan for harming or killing yourself?. NUTRITIONAL RISK ASSESSMENT: The nutritional risk assessment revealed no deficiencies. FUNCTIONAL ASSESSMENT: Functional assessment: no impairments noted. LEARNING NEEDS ASSESSMENT: The learning needs assessment revealed no barriers. FALL RISK ASSESSMENT: Fall risk assessment completed. No risk factors identified. SKIN INTEGRITY ASSESSMENT: Skin integrity risk assessment completed. No skin integrity risk identified. -- 15:42 04/09/25 KERRI Medrano R.N. Assessment 15:04/09/25. The patient states feels the same. -- 15:42 04/09/25 KERRI Medrano R.N. Interventions 15:04/09/25. Identification band on patient. To treatment room. Advanced care plan (FC). -- 15:42 04/09/25 EDT Barrie Medrano R.N. PHYSICAL ASSESSMENT 18:10 04/09/25. Ambulatory to room. ( Pt was seen and worked up recently for a kidney stone. Pt states she went home on pain medication and flomax. Pt states the pain is now more in her right upper abdomen. S (more content not included)... Normal [facility] ED ORDER SHEET (CPOE ONLY)on 04-14-2025 ED ORDER SHEET (CPOE ONLY) Order Sheet - CARMEN HARVEY, : 1945, , Order Sheet [address] [address] [id number] 04/09/2025 Patient: CARMEN HARVEY Sex: Female : 1945 Age: 79y MEASUREMENTS: Wt: 77.1 kg, Ht/Manuel: 59.0 in, BMI: 34.34 ALLERGIES: Iodinated Contrast Media, Macrodantin, [place], Tessalon Perles, codeine, lisinopril, morphine, tramadol MEDICATION/IV/DRIP/FLUID ORDERS Order Description Priority Entered Acknowledged Completed MORPHine IVP4 mg (NOW x1, 17:11 04/09/2025 17:33 HIGH ALERT MEDICATION) Facundo Calvo M.D. 04/09/2025 Mallika Dixon R.N. Reason for ordering with alerts: Clinical consideration given --17:11 04/09/2025 Facundo Calvo M.D. Ondansetron IVP4 mg (NOW x1) 17:11 04/09/2025 17:33 18:19 Facundo Calvo M.D. 04/09/2025 04/09/2025 Mallika Borrego R.N. R.N. IV NS 0.9 %1000 mL at 500 17:11 04/09/2025 17:33 18:20 mL/hr (NOW x1) Facundo Calvo M.D. 04/09/2025 04/09/2025 Mallika Dixon, Mallika Dixon, R.N. R.N. MethylPREDNISolone Sodium 17:12 04/09/2025 17:33 18:24 Succ (Solu-Medrol) IVP40 mg Facundo Cavlo M.D. 04/09/2025 04/09/2025 1 of 3 Order Sheet - CARMEN HARVEY, : 1945, , MRN: (NOW x1) Mallika Borrego, Mikala. R.N. DiphenhydrAMINE (Benadryl) 17:12 04/09/2025 17:33 18:27 IVP25 mg (NOW x1) Facundo Calvo M.D. 04/09/2025 04/09/2025 Mallika Borrego R.N. R.N. KetorOLAC (Toradol) IVP15 mg 18:29 04/09/2025 18:34 18:41 (NOW x1) Facundo Calvo M.D. 04/09/2025 04/09/2025 Mallika Borrego R.N. R.NLesia Reason for ordering with alerts: Benefits outweigh risks --18:29 04/09/2025 Facundo Calvo M.D. LAB ORDERS Order Description Priority Entered Acknowledged Collected Completed CBC w Diff Stat Stat 17:11 04/09/2025 17:32 04/09/2025 18:02 04/09/2025 Mallika Mac Natalie Yoder, M.D. R.N. RLesiaNLesia CMP Stat Stat 17:11 04/09/2025 17:32 04/09/2025 18:02 04/09/2025 Mallika Mac Natalie Yoder, M.D. R.N. R.N. Lactate, Serum Stat Stat 17:11 04/09/2025 18:31 04/09/2025 18:31 04/09/2025 Mallika Mac Natalie Yoder, M.D. R.N. R.NLesia Urinalysis Stat Stat 17:11 04/09/2025 17:32 04/09/2025 Mallika Mac M.D. R.N. EKG - ED Stat Stat 17:11 04/09/2025 17:32 04/09/2025 17:32 04/09/2025 Mallika Mac Natalie Yoder, 2 of 3 Order Sheet - CARMEN HARVEY, : 1945, , Phillip Malone RLesiaN. Troponin-I Stat Stat 17:11 04/09/2025 17:32 04/09/2025 Mallika Mac M.D. R.NLesia DIAGNOSTIC STUDY ORDERS Order Description Priority Entered Acknowledged Completed CT ABD/PEL w Cont Stat Stat 17:11 04/09/2025 Cancelled: Wrong Order Facundo Calvo M.D. 17:15 EDT Facundo Calvo M.D. Reason for Study: r sided abdominal pain CTA Abd/Pelvis 17:16 04/09/2025 19:19 Facundo Calvo M.D. 04/09/2025 Whitney Osborn R.N. Order Comments: 17:16 04/09/2025: (will pretreat with benadryl and solumedrol) Facundo Calvo M.D. Reason for Study: r side pain,pain out of proportion,?thrombosis STAFF ORDERS Order Description Priority Entered Acknowledged Collected Completed [Electronically signed by Facundo Calvo M.D. (04/09/2025 21:10 EDT)] 3 of 3 Normal [facility] ED PHYSICIAN CLINICAL REPORT on 04-14-2025 ED PHYSICIAN CLINICAL REPORT Narrative - CARMEN HARVEY, : 1945, , Physician Clinical Narrative [address] [address] [id number] 04/09/2025 15:08:00 Patient: CARMEN HARVEY Sex: Female : 1945 Age: 79y Disposition: Discharge to Home Disposition Decision Time: 21:09 04/09/2025 Measurements Wt: 77.1 kg, Ht/Manuel: 59.0 in, BMI: 34.34 Initial Vital Sign Measured Time BP MAP HR RR O2Sat ETCO2 Temp Pain GCS RTS 15:41 04/09/2025 107/41 63 80 16 100% 97.4 F 8 Time Seen: 17:04 04/09/2025. HISTORY OF PRESENT ILLNESS Chief Complaint: ABDOMINAL PAIN. This started last night. (patient coming in with right lower quadrant pain and right flank pain. Stated she was just seen here and does not feel like it is a kidney stone. She was discharged with renal colic as the diagnosis and was found to have a nonobstructing right kidney stone but with blood in her urine. She states that the Percocet was causing her to be constipated so she quit taking it now the pain is worse than ever. Has had no diarrhea or bloody stool. She has had a bowel movement today. Denies any fever, chills, nausea, vomiting. It is all located in the right side in his not migrating. She states that she has always had this stone and has never cause these symptoms before. She was discharged on Flomax and the oxycodone she is not taking). Similar symptoms previously. None. Recent medical care: The patient was seen recently in the emergency department. 1 CARMEN Muhammad DOB: 1945, , MRN: REVIEW OF SYSTEMS All other systems reviewed and are negative. PAST HISTORY See nurses notes. Anemia Anxiety disorder Chronic kidney disease stage 3 Coronary artery bypass grafting (procedure) Coronary Artery Disease Depression Diabetes Mellitus Type 2 Gastroesophageal Reflux Disease Gastroparesis Hyperbilirubinemia Hyperlipidemia Hypertension Mitral Insufficiency Osteoarthritis of multiple joints Sleep Apnea Surgeries: Appendectomy Bowel Resection Gallbladder Surgery Hysterectomy Medications: Flomax 0.4 mg capsule: 0.4 mg once a day every AM. hydrochlorothiazide 12.5 mg tablet losartan 25 mg tablet: 25 mg once a day every AM. Percocet 5 mg-325 mg tablet: 1 tab every 6 hours as needed for pain. Allergies: codeine 2 of 12 CARMEN Muhammad DOB: 1945, , MRN: Iodinated Contrast Media lisinopril Macrodantin morphine [place] Tessalon Perles tramadol ADDITIONAL NOTES The nursing notes have been reviewed. PHYSICAL EXAM Vital Signs: Have been reviewed. Appearance: Alert. Oriented X3. No acute distress. Patient in apparent distress. (Pain). ENT: Ears normal. Nose normal. Pharynx normal. Neck: Normal inspection. Neck supple. CVS: Normal heart rate and rhythm. Heart sounds normal. Pulses normal. Respiratory: No respiratory distress. Painless inspiration. Breath sounds normal. Chest nontender. Abdomen: Soft. Moderate tenderness in the right side of the abdomen and right lower quadrant. Guarding present. No rebound tenderness or distention. The bowel sounds are not abnormal. Back: No CVA tenderness. Skin: Skin warm and dry. Normal skin color. No rash. Normal skin turgor. Extremities: Extremities exhibit normal ROM. No lower extremity edema. LABS, X-RAYS, AND EKG 12-LEAD EKG: rhythm is sinus with 1 P-wave for every QRS when QRS for P wave. RI, QRS, QTC are all unremarkable. Borderline left axis deviation leads 1 AVF. Good R-wave progression. No significant ST-elevation or depression. Laboratory Tests: CBC + DIFF Final PEE: 04/09/2025 17:18:00 EDT MsgRcvd: 04/09/2025 17:34 EDT [address] [facility] - CARMEN HARVEY, : 1945, , Lab Test Result Reference Status Received 04/09/2025 17:34 CBC + DIFF Final EDT CBC-COMPLETE BLOOD COUNT 04/09/2025 17:34 WBC 8.8 x 10/UL 4.5 - 10.8 Final EDT 04/09/2025 17:34 RBC 4.14 x 10/UL 4.10 - 5.30 Final EDT 04/09/2025 17:34 HEMOGLOBIN 12.4 g/dl 12.0 - 16.0 Final EDT 04/09/2025 17:34 HEMATOCRIT 35.4 % 34.0 - 46.0 Final EDT 04/09/2025 17:34 MCV 86 fl 80 - 99 Final EDT 04/09/2025 17:34 MCH 30 pg 27 - 33 Final EDT 04/09/2025 17:34 MCHC 35 X10 3 32 - 36 Final EDT 04/09/2025 17:34 RDW/CV 15.2 % 12.0 - 15.6 Final EDT 04/09/2025 17:34 PLATELET 192 x10/UL 150 - 450 Final EDT 04/09/2025 17:34 MPV 8.4 fl 6.6 - 10.5 Final EDT AUTOMATED DIFFERENTIAL 04/09/2025 17:34 NEUT % 75.8 % 46.0 - 76.0 Final EDT 4 of 12 Narrative - CARMEN HARVEY, : 1945, , 12.7 % 04/09/2025 17:34 LYMPH % 20.0 - 45.0 Final Below low normal EDT 04/09/2025 17:34 MONO (more content not included)... Normal [facility] ED SUPER BILLon 04-14-2025 ED [facility] CARMEN HARVEY, : 1945, , [address] [address] [id number] 04/09/2025 Patient: CARMEN HARVEY Sex: Female : 1945 Age: 79y Item Facility Professional Category Description Code Code Quantity Fee Total Nurse/E/M EMERGENCY 562959 1 $0.00 $0.00 DEPARTMENT VISIT HIGH/URGENT SEVERITY (28002-31) Nurse/IV/IM/Infusions Hydration 684542 2 $0.00 $0.00 additional hour (20957) Nurse/IV/IM/Infusions IVP additional 717023 3 $0.00 $0.00 push (85836) Nurse/IV/IM/Infusions IVP initial 640652 1 $0.00 $0.00 (62507) Grand Total $0.00 Providers Facundo Calvo M.D. Chief Complaint 1 of 2 [facility] CARMEN HARVEY, : 1945, , MRN: ABDOMINAL PAIN. Principal Diagnosis right mid abdominal pain, gastritis. 2 of 2 Normal [facility] ED VISIT SUMMARYon ED VISIT SUMMARY Visit Overview - CARMEN GREGG, : 1945, , MRN: Visit [facility] [address] [place] [address] [id number] 04/09/2025 Patient: CARMEN HARVEY Sex: Female : 1945 Age: 79y 04/14/2025 08:37 AM EDT ED Arrival:15:08 04/09/2025 EDT Status: Recent Travel:no Language:eng Adv Directive: Isolation Status: Ethnicity:N Fall Risk:no risk Infectious Disease Exposure:no Measurements:4'11 / 149.9 Self-Harm Status:no risk Sepsis Screen:negative cm 170.0 lb / 77.1 kg Chief Complaint:ABDOMINAL PAIN, (), (Monday), and (Patient was diagnosed with a kidney stone on Monday. She reports that the pain in her side is not radiating into her abdomen and is severe. ) ALLERGIES codeine Iodinated Contrast Media lisinopril Macrodantin morphine 1 of 4 Visit Overview - CARMEN HARVEY, : 1945, , MRN: [place] Tesjose Alas tramadol HOME MEDICATIONS Flomax 0.4 mg capsule: 0.4 mg once a day every AM. hydrochlorothiazide 12.5 mg tablet losartan 25 mg tablet: 25 mg once a day every AM. Percocet 5 mg-325 mg tablet: 1 tab every 6 hours as needed for pain. PAST MEDICAL HISTORY / PROBLEMS Anemia Anxiety disorder Chronic kidney disease stage 3 Coronary artery bypass grafting (procedure) Coronary Artery Disease Depression Diabetes Mellitus Type 2 Gastroesophageal Reflux Disease Gastroparesis Hyperbilirubinemia Hyperlipidemia Hypertension Mitral Insufficiency Osteoarthritis of multiple joints See nurses notes Sleep Apnea PAST SURGICAL HISTORY Appendectomy Bowel Resection Gallbladder Surgery Hysterectomy SOCIAL HISTORY 2 of 4 Visit Overview - CARMEN HARVEY, : 1945, , MRN: Nutritional assessment: No deficits Functional assessment: No impairments Learning needs: No barriers Smoking status: No Alcohol use: No Drug use: No ED COURSE MEDICATIONS GIVEN IN EMERGENCY DEPARTMENT 18:18 04/09/25 Ondansetron IVP 4 mg 18:20 04/09/25 IV NS 0.9 % 1000 mL 500 mL/hr 18:22 04/09/25 MethylPREDNISolone Sodium Succ (Solu-Medrol) IVP 40 mg 18:26 04/09/25 DiphenhydrAMINE (Benadryl) IVP 25 mg 18:40 04/09/25 KetorOLAC (Toradol) IVP 15 mg IV SITE INFORMATION INTAKE OUTPUT REASSESMENT (most recent) 18:10 04/09/25. Ambulatory to room. ( Pt was seen and worked up recently for a kidney stone. Pt states she went home on pain medication and flomax. Pt states the pain is now more in her right upper abdomen. She states the pain is a 10/10.). GENERAL / NEURO / PSYCH: Alert. Oriented X 4. Appears in pain and anxious. RESPIRATORY: Respirations not labored. Breath sounds within normal limits. CVS: Normal sinus rhythm noted. Capillary refill less than 2 seconds. GI / : The patient has had nausea. Abdominal tenderness in the right upper quadrant and right side of the abdomen. SKIN: Skin is warm and dry. VITAL SIGNS First Vitals Last Vitals Temp 15:41 04/09/25 97.4 F Temp 21:12 04/09/25 BP 15:41 04/09/25 107/41 BP 21:12 04/09/25 HR 15:41 04/09/25 80 HR 21:12 04/09/25 74 RR 15:41 04/09/25 16 RR 21:12 04/09/25 3 of 4 Visit Overview - CARMEN HARVEY, : 1945, , First Vitals Last Vitals O2 Sat 15:41 04/09/25 100% O2 Sat 21:12 04/09/25 96% Pain 15:41 04/09/25 8 Pain 21:12 04/09/25 ETCO2 15:41 04/09/25 ETCO2 21:12 04/09/25 GCS 15:41 04/09/25 GCS 21:12 04/09/25 RTS 15:41 04/09/25 RTS 21:12 04/09/25 PROCEDURES NURSING INTERVENTIONS LABS / STUDIES LABS / STUDIES ORDERED CBC w Diff CMP CTA Abd/Pelvis EKG - ED Lactate, Serum Troponin-I Urinalysis CLINICAL IMPRESSION 4 of 4 Normal [facility] ED VITALS FLOW SHEETon 04-14 ED VITALS FLOW SHEET Vitals - CARMEN HARVEY, : 1945, , MRN: Vital Sign Flow Sheet [place] [address] [place] [address] [id number] 04/09/2025 Patient: CARMEN HARVEY MRN#: Sex: Female : 1945 Age: 79y Measurements Wt: 77.1 kg, Ht/Manuel: 59.0 in, BMI: 34.34 Measured Time BP MAP HR RR O2Sat ETCO2 Temp Pain GCS RTS 21:12 04/09/2025 74 96% 21:07 04/09/2025 72 96% 21:02 04/09/2025 74 96% 20:59 04/09/2025 126/70 85 73 20:57 04/09/2025 73 95% 20:52 04/09/2025 75 92% 20:47 04/09/2025 72 93% 20:42 04/09/2025 70 95% 20:39 04/09/2025 135/71 86 69 20:37 04/09/2025 69 95% 20:32 04/09/2025 72 93% 20:27 04/09/2025 70 96% 20:22 04/09/2025 75 93% 20:19 04/09/2025 125/68 81 71 20:17 04/09/2025 72 94% 1 of 2 Vitals - CARMEN HARVEY, : 1945, , MRN: Measured Time BP MAP HR RR O2Sat ETCO2 Temp Pain GCS RTS 20:12 04/09/2025 72 89% 20:07 04/09/2025 76 92% 20:02 04/09/2025 70 89% 19:59 04/09/2025 125/61 72 69 19:57 04/09/2025 72 89% 19:52 04/09/2025 70 96% 19:22 04/09/2025 62 95% 19:19 04/09/2025 133/60 79 60 19:17 04/09/2025 65 95% 19:12 04/09/2025 62 96% 19:07 04/09/2025 61 97% 19:02 04/09/2025 68 95% 18:59 04/09/2025 142/75 85 66 18:57 04/09/2025 60 97% 18:52 04/09/2025 70 95% 18:47 04/09/2025 69 97% 18:42 04/09/2025 70 99% 18:39 04/09/2025 128/54 71 70 15:41 04/09/2025 107/41 63 80 16 100% 97.4 F 8 2 of 2 Normal [facility] CBC + DIFFon 04-09-2025 Baso # 0.00 x10EE3/UL Normal 0.00 - 0.10 [facility] Comment on above: Performed By: #### [id number] #### [facility],[address] [place] [address] Basophils/100 WBC (Bld) 0.0 % Normal 0.0 - 2.0 [facility] Comment on above: Performed By: #### 2 [id number] #### [facility],[address] [place] [address] CBC + DIFF Normal [facility] Comment on above: Result Comment: CBC- COMPLETE BLOOD COUNT Performed By: #### 2 [id number] #### [facility],[address] [place] [id number] EO # 0.17 x10EE3/UL Normal 0.00 - 0.50 [facility] Comment on above: Performed By: #### 2 [id number] #### [facility],[address] [place] [address] Eosinophils/100 WBC (Bld) 2.0 % Normal 0.0 - 7.0 [facility] Comment on above: Performed By: #### 2 [id number] #### [facility],[address] [place] [address] Erythrocyte distribution width (RBC) [Ratio] 15.2 % Normal 12.0 - 15.6 [facility] Comment on above: Performed By: #### 2 [id number] #### [facility],[address] [place] [address] Hematocrit (Bld) [Volume fraction] 35.4 % Normal 34.0 - 46.0 [facility] Comment on above: Performed By: #### 2 [id number] #### [facility],[address] [place] [address] Hemoglobin (Bld) [Mass/Vol] 12.4 g/dL Normal 12.0 - 16.0 [facility] Center Comment on above: Performed By: #### 2 93629 #### [facility],[address] [place] [address] Lymph # 1.12 x10EE3/UL Normal 0.80 - 2.80 [facility] Comment on above: Performed By: #### 2 39091 #### [facility],[address] [place] [address] Lymphocytes/100 WBC (Bld) 12.7 % Low 20.0 - 45.0 [facility] Comment on above: Performed By: #### 2 00715 #### [facility],[address] [place], [place] [id number] MANUAL DIFF N/A Normal [facility] Comment on above: Performed By: #### 2 02058 #### [facility],[address] [place] [address] MCH (RBC) [Entitic mass] 30 pg Normal 27 - 33 [facility] Comment on above: Performed By: #### 2 11228 #### [place] [id number] MCHC 35 X10 3 Normal 32 - 36 [facility] Comment on above: Performed By: #### 2 11371 #### [facility],[address] [place] [address] MCV (RBC) [Entitic vol] 86 fL Normal 80 - 99 [facility] Comment on above: Performed By: #### 2 03732 #### [facility],[address] [place] [address] [place] # 0.83 x10EE3/UL Normal 0.20 - 1.00 [facility] Comment on above: Performed By: #### 2 94176 #### [facility],[address] [place] [address] MONOS % 9.4 % Normal 0.0 - 10.0 [facility] Comment on above: Performed By: #### 2 08875 #### [facility],[address] [place] [address] Morphology Hardy (Bld) [Interp] N/A Normal [facility] Comment on above: Performed By: #### 2 54508 #### [facility],[address] [place] [address] Neut # 6.66 x10EE3/UL Normal 1.50 - 7.10 [facility] Comment on above: Performed By: #### 2 38243 #### [facility],[address] [place] [address] Neutrophils/100 WBC (Bld) 75.8 % Normal 46.0 - 76.0 [facility] Comment on above: Performed By: #### 2 19156 #### [facility],[address] [place] [address] PLATELET 192 x10EE3/UL Normal 150 - 450 [facility] Comment on above: Performed By: #### 2 45310 #### [facility],[address],[place] [address] Platelet mean volume (Bld) [Entitic vol] 8.4 fL Normal 6.6 - 10.5 [facility] Comment on above: Result Comment: AUTO MATED DIFFERENTIAL Performed By: #### 2 89166 #### [facility],[address] [place] [address] 63698 RBC 4.14 x 10EE6/UL Normal 4.10 - 5.30 [facility] Comment on above: Performed By: #### 2 35864 #### [facility],[address] [place] [address] 32909 WBC 8.8 x 10EE3/UL Normal 4.5 - 10.8 [facility] Comment on above: Performed By: #### 2 18662 #### [facility],[address] [place], [place] [id number] CMP with eGFRon 04-09-2025 AGE 79 years Normal [facility] Comment on above: Performed By: #### 2 68078 #### [facility],[address] [place] [address] 75744 Albumin [Mass/Vol] 3.4 g/dL Normal 3.4 - 5.0 [facility] Comment on above: Performed By: #### 2 94929 #### [facility],[address] [place] [address] 93107 Albumin/Globulin [Mass ratio] 0.9 {ratio} Normal 0.9 - 1.6 [facility] Comment on above: Performed By: #### 2 87897 #### [facility],[address] [place] [address] 49492 ALK PHOS 128 U/L High 46 - 116 [facility] Comment on above: Performed By: #### 2 74687 #### [facility],[address] [place] [address] 31644 ALT [Catalytic activity/Vol] 98 U/L High 16 - 63 [facility] Comment on above: Performed By: #### 2 39241 #### [facility],[address] [place] [address] 81330 Anion gap [Moles/Vol] 15 mmol/L Normal 10 - 20 [facility] Comment on above: Performed By: #### 2 55101 #### [facility],[address] [place] [address] 93456 AST [Catalytic activity/Vol] 40 U/L High 13 - 39 [facility] Comment on above: Performed By: #### 2 36193 #### [facility],[address] [place] [address] 66398 B/C RATIO 21 ratio Normal 0 - 30 [facility] Comment on above: Performed By: #### 2 56446 #### [facility],[address] [place] [address] 50124 Bilirubin [Mass/Vol] 2.9 mg/dL High 0.2 - 1.0 [facility] Comment on above: Performed By: #### 2 57482 #### [facility],[address] [place] [address] 95141 Calcium [Mass/Vol] 9.3 mg/dL Normal 8.5 - 10.1 [facility] Comment on above: Performed By: #### 2 66785 #### [facility],[address] [place] [address] 59069 Chloride [Moles/Vol] 103 mmol/L Normal 98 - 107 [facility] Comment on above: Performed By: #### 2 82186 #### [facility],[address] [place] [address] 19299 CMP with eGFR Normal [facility] Comment on above: Result Comment: COMP REHENSIVE METABOLIC PANEL Performed By: #### 2 76312 #### [facility],[address] [place] [address] 15969 CO2 [Moles/Vol] 25.5 mmol/L Normal 21.0 - 32.0 [facility] Comment on above: Performed By: #### 2 55662 #### [facility],[address] [place] [address] 95078 Creatinine [Mass/Vol] 1.09 mg/dL High 0.55 - 1.02 [facility] Comment on above: Performed By: #### 2 23413 #### [facility],[address] [place] [address] 41619 eGFR 49 ML/MINUTE Low 60 - 999 [facility] Comment on above: Performed By: #### 2 58878 #### [facility],[address] [place] [address] 04718 eGFR(AA) 59 ML/MINUTE Low 60 - 999 [facility] Comment on above: Result Comment: ACCO RDING TO THE NATIONAL KIDNEY DISEASE EDUCATION PROGRAM(NKDE), A NORMAL eGFR IS A VALUE GREATER THAN OR EQUAL TO 60 ML/MIN/1.73 SQ METERS. CHRONIC KIDNEY DISEASE: <60mL/MIN/1.73 SQ METERS KIDNEY FAILURE: <15mL/MIN/1.73 SQ METERS THIS TEST SHOULD ONLY BE USED FOR PATIENTS 18 YEARS OF AGE AND OLDER. Performed By: #### 2 30060 #### [facility],[address] [place] [address] 04954 Globulin (S) [Mass/Vol] 3.8 g/dL Normal 1.5 - 3.8 [facility] Comment on above: Performed By: #### 2 39677 #### [facility],[address] [place] [address] 81021 Glucose [Mass/Vol] 96 mg/dL Normal 74 - 106 [facility] Comment on above: Performed By: #### 2 84512 #### [address] [address] Potassium [Moles/Vol] 3.6 mmol/L Normal 3.5 - 5.1 [facility] Comment on above: Performed By: #### 2 97483 #### [address] [address] Protein [Mass/Vol] 7.2 g/dL Normal 6.4 - 8.2 [facility] Comment on above: Performed By: #### 2 14575 #### [facility],[address] [place] [address] 18122 Sodium [Moles/Vol] 140 mmol/L Normal 136 - 145 [facility] Comment on above: Performed By: #### 2 09403 #### [facility],[address] [place] [address] 26078 Urea nitrogen [Mass/Vol] 23 mg/dL High 7 - [facility] Comment on above: Performed By: #### 2 39033 #### [facility],[address] [place] [address] ANGIOGRAPHY ABDOMEN //T// PELVISon 04-09-2025 CT ANGIOGRAPHY ABDOMEN //T// PELVIS [place] [address] Patient: CARMEN HARVEY Phone#: : 1945 Age: 79 Gender: F Pt. Type: ER Account: [id number] Location: [facility] Ordering: DR. FACUNDO CALVO Exam Date: 04/09/2025/19:38 Family Phys: DERICK Shalonda CAMPA Charge Code: 986248 Physician: Patrick Order #: [id number] Dose#: 26.10 mGy PROCEDURE: CT ANGIOGRAPHY ABDOMEN AND PELVIS WITH CONTRAST COMPARISON: [facility], CT, ABDOMEN/PELVIS W/O CON, 03/31/2021, 19:10. [facility], CT, ABDOMEN/PELVIS W/O CON, 04/07/2025, 13:19. INDICATIONS: Right Upper Quadrant Pain. TECHNIQUE: After obtaining the patient's consent, CT images of the abdomen and pelvis were created with non-ionic intravenous contrast, and with MPR/MIPS and 3D imaging. All CT scans at this facility use dose modulation, iterative reconstruction, and/or weight based dosing when appropriate to reduce radiation dose to as low as reasonably achievable. IV CONTRAST: Omnipaque 350,100ml TOTAL DOSE: 26.10 CTDIvol(mGy) FINDINGS: AORTA/VASCULAR: Normal. No aneurysm or dissection. Normal renal and mesenteric vessels. LIVER: Normal. No enlargement, atrophy, abnormal density, or significant focal lesion. BILIARY: The gallbladder is absent. There is no evidence of biliary dilatation. PANCREAS: Normal. No lesion, fluid collection, ductal dilatation, or atrophy. SPLEEN: Normal. No enlargement or focal lesion. KIDNEYS: Left renal cysts are present. The right kidney is unremarkable except for nonobstructing 7 millimeter calcification. ADRENALS: Normal. No mass or enlargement. RETROPERITONEUM: Normal. No mass or adenopathy. BOWEL/MESENTERY: There is moderate stool retention. No visible mass, obstruction, or bowel wall thickening. A small hiatal hernia is present. There is thickening the gastric mucosa raising possibility of gastritis. ABDOMINAL WALL: Normal. No mass or hernia. URINARY BLADDER: Normal. No visible focal wall thickening, lesion, or calculus. PELVIC NODES: Normal. No adenopathy. PELVIC ORGANS: Normal. No visible mass. Pelvic organs appropriate for patient age. Continued Report - Page 2 of 2 Patient: CARMEN HARVEY Phone#: : 1945 Age: 79 Gender: F Pt. Type: ER Account: [id number] Location: [facility] Ordering: DR. FACUNDO CALVO Exam Date: 04/09/2025/19:38 Family Phys: November. [place] Charge Code: 940888 Physician: Patrick Order #: [id number] Dose#: 26.10 mGy BONES: Degenerative changes of the spine are present most marked at the L3-4, L4-5 and L5-S1 levels.. No bony lesion or fracture. LUNG BASES: Normal. No visible pulmonary or pleural disease. OTHER: Negative. CONCLUSION: 1. Left renal cyst. 2. Moderate stool retention. 3. There is thickening the gastric mucosa suspicious gastritis. Dictated by: Kaykay Mederos MD on 04/09/2025 at 20:17 Approved by: Kaykay Mederos MD on 04/09/2025 at 20:31 Normal [facility] LACTATEon 04-09-2025 Lactate [Moles/Vol] 1.2 mmol/L Normal 0.4 - 2.0 [facility] Comment on above: Performed By: #### 2 66753 #### [facility],[address] [place], [place] [address] TROPONINon 04-09-2025 HS TROPONIN 4.1 pg/mL Normal 0.0 - 51.4 [facility] Comment on above: Performed By: #### 2 77343 #### [facility],[address] [place] [address] 26379 URINALYSISon 04-09-2025 Amorphous NONE Normal [facility] Comment on above: Performed By: #### 2 99939 #### [facility],[address] [place] [address] Bacteria NONE Normal [facility] Comment on above: Performed By: #### 2 93363 #### [facility],[address] [place], [place] [address] Bilirubin Ql (U) Negative Normal NORMAL: NEGATIVE [facility] Comment on above: Performed By: #### 2 41336 #### [facility],[address] [place], [place] [address] Casts NONE Normal [facility] Comment on above: Performed By: #### 2 37032 #### [facility],[address] [place] [address] 99497 Clarity (U) clear Normal NORMAL: CLEAR [facility] Comment on above: Performed By: #### 2 51313 #### [facility],[address] [place] [address] 97289 Color (U) p.yel Normal NORMAL: YELLOW [facility] Comment on above: Performed By: #### 2 31641 #### [facility],[address] [place] [address] 48351 Crystals LM Nom (Urine sed) NONE Normal [facility] Comment on above: Performed By: #### 2 99491 #### [facility],[address] [place] [address] 43286 Epi Cells FEW Normal [facility] Comment on above: Performed By: #### 2 03879 #### [facility],[address] [place] [address] 36163 Glucose Ql (U) 1000 Abnormal NORMAL: NORMAL [facility] Comment on above: Performed By: #### 2 97335 #### [facility],[address] [place] [address] 73134 Hemoglobin Ql (U) 10 Abnormal NORMAL: NEGATIVE [facility] Comment on above: Performed By: #### 2 00620 #### [facility],[address] [place] [address] 73879 Ketone Negative Normal NORMAL: NEGATIVE [facility] Comment on above: Performed By: #### 2 67736 #### [facility],[address] [place] [address] 21810 Leukocytes Negative Normal NORMAL: NEGATIVE [facility] Comment on above: Performed By: #### 2 16684 #### [facility],[address] [place] [address] 10948 Mucous NONE Normal [facility] Comment on above: Performed By: #### 2 30045 #### [facility],[address] [place] [address] 90118 Nitrite Ql (U) Negative Normal NORMAL: NEGATIVE [facility] Comment on above: Performed By: #### 2 61455 #### [facility],[address] [place] [address] 68418 pH (U) 7 [pH] Normal NORMAL: 5.0-8.0 [facility] Comment on above: Performed By: #### 2 14064 #### [facility],[address] [place] [address] 60822 Protein Ql (U) Negative Normal NORMAL: NEGATIVE [facility] Comment on above: Performed By: #### 2 88644 #### [facility],[address] [place] [address] 81956 Rbc 0-5 Normal 0-3/hpf [facility] Comment on above: Performed By: #### 2 03064 #### [facility],[address] [place] [address] Sp Fonda 1.005 Low NORMAL: 1.010-1.030 [facility] Comment on above: Performed By: #### 2 00803 #### [facility],[address] [place] [address] Specimen Type R Normal [facility] Comment on above: Performed By: #### 2 28907 #### [facility],[address] [place] [address] Urinalysis dipstick W Reflex Microscopic panel (U) SEE BELOW Normal [facility] Comment on above: Result Comment: MICR OSCOPIC Performed By: #### 2 56766 #### [facility],[address] [place] [address] Urobilinog NORM Normal NORMAL: NORMAL [facility] Comment on above: Performed By: #### 2 24072 #### [facility],[address] [place] [address] Wbc NONE Normal 0-5/hpf [facility] Comment on above: Performed By: #### 2 58707 #### [facility],[address] [place] [address] Yeast NONE Normal [facility] Comment on above: Performed By: #### 2 86286 #### [facility],[address] [place] [address] CBC + DIFFon 04-07-2025 Baso # 0.02 x10EE3/UL Normal 0.00 - 0.10 [facility] Comment on above: Performed By: #### 2 52905 #### [facility],[address] [place] [address] Basophils/100 WBC (Bld) 0.2 % Normal 0.0 - 2.0 [facility] Comment on above: Performed By: #### 2 01184 #### [facility],[address] [place] [address] CBC + DIFF Normal [facility] Comment on above: Result Comment: CBC- COMPLETE BLOOD COUNT Performed By: #### 2 96574 #### [facility],[address] [place] [address] EO # 0.22 x10EE3/UL Normal 0.00 - 0.50 [facility] Comment on above: Performed By: #### 2 36516 #### [facility],[address] [place] [address] Eosinophils/100 WBC (Bld) 2.2 % Normal 0.0 - 7.0 [facility] Comment on above: Performed By: #### 2 02101 #### [facility],[address] [place] [address] Erythrocyte distribution width (RBC) [Ratio] 15.2 % Normal 12.0 - 15.6 [facility] Comment on above: Performed By: #### 2 11433 #### [facility],[address] [place] [address] Hematocrit (Bld) [Volume fraction] 37.8 % Normal 34.0 - 46.0 [facility] Comment on above: Performed By: #### 2 59937 #### [facility],[address] [place], [place] [address] Hemoglobin (Bld) [Mass/Vol] 12.8 g/dL Normal 12.0 - 16.0 [facility] Comment on above: Performed By: #### 2 74051 #### [facility],[address] [place], [place] [address] Lymph # 1.29 x10EE3/UL Normal 0.80 - 2.80 [facility] Comment on above: Performed By: #### 2 10911 #### [facility],[address] [place], [place] [address] Lymphocytes/100 WBC (Bld) 13.1 % Low 20.0 - 45.0 [facility] Comment on above: Performed By: #### 2 73651 #### [facility],[address] [place] [address] MANUAL DIFF N/A Normal [facility] Comment on above: Performed By: #### 2 58739 #### [facility],[address] [place] [address] MCH (RBC) [Entitic mass] 29 pg Normal 27 - 33 [facility] Comment on above: Performed By: #### 2 02647 #### [place] [address] MCHC 34 X10 3 Normal 32 - 36 [facility] Comment on above: Performed By: #### 2 98571 #### [facility],[address] [place] [address] MCV (RBC) [Entitic vol] 85 fL Normal 80 - 99 [facility] Comment on above: Performed By: #### 2 80850 #### [place] [address] [place] # 0.79 x10EE3/UL Normal 0.20 - 1.00 [facility] Comment on above: Performed By: #### 2 80074 #### [place] [address] MONOS % 8.0 % Normal 0.0 - 10.0 [facility] Comment on above: Performed By: #### 2 83342 #### [place] [address] Morphology Hardy (Bld) [Interp] N/A Normal [facility] Comment on above: Performed By: #### 2 22733 #### [place] [address] Neut # 7.56 x10EE3/UL High 1.50 - 7.10 [facility] Comment on above: Performed By: #### 2 60149 #### [facility],[address] [place] [address] 97549 Neutrophils/100 WBC (Bld) 76.5 % High 46.0 - 76.0 [facility] Comment on above: Performed By: #### 2 42694 #### [facility],[address] [place] [address] 76392 PLATELET 230 x10EE3/UL Normal 150 - 450 [facility] Comment on above: Performed By: #### 2 00555 #### [facility],[address] [place] [address] 94978 Platelet mean volume (Bld) [Entitic vol] 8.3 fL Normal 6.6 - 10.5 [facility] Comment on above: Result Comment: AUTO MATED DIFFERENTIAL Performed By: #### 2 50465 #### [facility],[address] [place] [address] 66743 RBC 4.43 x 10EE6/UL Normal 4.10 - 5.30 [facility] Comment on above: Performed By: #### 2 77554 #### [facility],[address] [place] [address] 28273 WBC 9.9 x 10EE3/UL Normal 4.5 - 10.8 [facility] Comment on above: Performed By: #### 2 89866 #### [facility],[address] [place] [address] 23248 CMP with eGFRon 04-07-2025 AGE 79 years Normal [facility] Comment on above: Performed By: #### 2 03464 #### [facility],[address] [place] [address] 13333 Albumin [Mass/Vol] 3.5 g/dL Normal 3.4 - 5.0 [facility] Comment on above: Performed By: #### 2 83143 #### [facility],[address] [place] [address] 56614 Albumin/Globulin [Mass ratio] 1.1 {ratio} Normal 0.9 - 1.6 [facility] Comment on above: Performed By: #### 2 25928 #### [facility],[address] [place] [address] 94630 ALK PHOS 112 U/L Normal 46 - 116 [facility] Comment on above: Performed By: #### 2 38201 #### [facility],[address] [place] [address] 91332 ALT [Catalytic activity/Vol] 16 U/L Normal 16 - 63 [facility] Comment on above: Performed By: #### 2 60155 #### [facility],[address] [place] [address] 28512 Anion gap [Moles/Vol] 16 mmol/L Normal 10 - 20 [facility] Comment on above: Performed By: #### 2 76270 #### [facility],[address] [place] [address] 61080 AST [Catalytic activity/Vol] 19 U/L Normal 13 - 39 [facility] Comment on above: Performed By: #### 2 50896 #### [facility],[address] [place] [address] 23046 B/C RATIO 22 ratio Normal 0 - 30 [facility] Comment on above: Performed By: #### 2 86559 #### [facility],[address] [place] [address] 85904 Bilirubin [Mass/Vol] 2.4 mg/dL High 0.2 - 1.0 [facility] Comment on above: Performed By: #### 2 41155 #### [facility],[address] [place] [address] 07230 Calcium [Mass/Vol] 9.4 mg/dL Normal 8.5 - 10.1 [facility] Comment on above: Performed By: #### 2 30204 #### [facility],[address] [place] [address] 46046 Chloride [Moles/Vol] 101 mmol/L Normal 98 - 107 [facility] Comment on above: Performed By: #### 2 63131 #### [facility],[address] [place] [address] 62870 CMP with eGFR Normal [facility] Comment on above: Result Comment: COMP REHENSIVE METABOLIC PANEL Performed By: #### 2 15403 #### [facility],[address] [place] [address] 79291 CO2 [Moles/Vol] 23.1 mmol/L Normal 21.0 - 32.0 [facility] Comment on above: Performed By: #### 2 10868 #### [facility],[address] [place] [address] 18740 Creatinine [Mass/Vol] 0.96 mg/dL Normal 0.55 - 1.02 [facility] Comment on above: Performed By: #### 2 27748 #### [facility],[address] [place] [address] 89546 eGFR 56 ML/MINUTE Low 60 - 999 [facility] Comment on above: Performed By: #### 2 68942 #### [facility],[address] [place] [address] 85194 GFR/1.73 sq M.predicted among non-blacks MDRD (S/P/Bld) [Vol rate/Area] mL/min/{1.73_m2} Normal 60 - 999 [facility] Comment on above: Result Comment: ACCO RDING TO THE NATIONAL KIDNEY DISEASE EDUCATION PROGRAM(NKDE), A NORMAL eGFR IS A VALUE GREATER THAN OR EQUAL TO 60 ML/MIN/1.73 SQ METERS. CHRONIC KIDNEY DISEASE: <60mL/MIN/1.73 SQ METERS KIDNEY FAILURE: <15mL/MIN/1.73 SQ METERS THIS TEST SHOULD ONLY BE USED FOR PATIENTS 18 YEARS OF AGE AND OLDER. Performed By: #### 2 32612 #### [facility],[address] [place] [address] 59580 Globulin (S) [Mass/Vol] 3.3 g/dL Normal 1.5 - 3.8 [facility] Comment on above: Performed By: #### 2 21599 #### [facility],[address] [place] [id number] Glucose [Mass/Vol] 186 mg/dL High 74 - 106 [facility] Comment on above: Performed By: #### 2 [id number] #### [facility],[address] [place] [address]893 Potassium [Moles/Vol] 3.4 mmol/L Low 3.5 - 5.1 [facility] Comment on above: Performed By: #### 2 [id number] #### [facility],[address] [place] [address] 94687 Protein [Mass/Vol] 6.8 g/dL Normal 6.4 - 8.2 [facility] Comment on above: Performed By: #### 2 98622 #### [facility],[address] [place] [address] 53860 Sodium [Moles/Vol] 137 mmol/L Normal 136 - 145 [facility] Comment on above: Performed By: #### 2 [id number] #### [facility],[address] [place] [address] 10712 Urea nitrogen [Mass/Vol] 21 mg/dL High 7 - 18 [facility] Comment on above: Performed By: #### 2 [id number] #### [facility],[address] [place] [address] ABDOMEN/PELVIS [facility] 04-07 CT ABDOMEN/PELVIS [place] [address] Patient: CARMEN HARVEY Phone#: : 1945 Age: 79 Gender: F Pt. Type: ER Account: [id number] Location: 052 Ordering: DR. SARIKA BENITEZ Exam Date: 04/07/2025/13:19 Family Phys: Charge Code: 248776 Physician: Patrick Order #: [id number] Dose#: [id number] PROCEDURE: CT ABDOMEN/PELVIS WITHOUT CONTRAST COMPARISON: [facility], CT, ABDOMEN/PELVIS W/O CON, 03/31/2021, 19:10. INDICATIONS: Abdominal pain. TECHNIQUE: CT images were created without intravenous contrast. All CT scans at this facility use dose modulation, iterative reconstruction, and/or weight based dosing when appropriate to reduce radiation dose to as low as reasonably achievable. IV CONTRAST: No IV contrast used,0ml TOTAL DOSE: 14.40 CTDIvol(mGy) FINDINGS: LIVER: Normal. No enlargement, atrophy, abnormal density, or significant focal lesion. BILIARY: The gallbladder is absent. PANCREAS: Normal. No lesion, fluid collection, ductal dilatation, or atrophy. SPLEEN: Normal. No enlargement or focal lesion. KIDNEYS: Bilateral renal cysts are present similar to prior exam. Nonobstructing mid right renal calculus is present unchanged since previous exam. ADRENALS: Normal. No mass or enlargement. AORTA/VASCULAR: Normal. No aneurysm. RETROPERITONEUM: Normal. No mass or adenopathy. BOWEL/MESENTERY: Surgical suture is present at the sigmoid level. Small hiatal hernia is present. ABDOMINAL WALL: Normal. No mass or hernia. URINARY BLADDER: Normal. No visible focal wall thickening, lesion, or calculus. PELVIC NODES: Normal. No adenopathy. PELVIC ORGANS: The uterus is absent. BONES: Normal. No bony lesion or fracture. LUNG BASES: Normal. No visible pulmonary or pleural disease. OTHER: Negative. CONCLUSION: 1. There is no evidence of acute abdominal or pelvic abnormality. [place] [address] Patient: CARMEN HARVEY Phone#: : 1945 Age: 79 Gender: F Pt. Type: ER Account: [id number] Location: 052 Ordering: DR. SARIKA BENITEZ Exam Date: 04/07/2025/13:19 Family Phys: Charge Code: [id number] Physician: Patrick Order #: [id number] Dose#: [id number] Dictated by: Kaykay Mederos MD on 04/07/2025 at 13:28 Approved by: Kaykay Mederos MD on 04/07/2025 at 13:31 Normal [facility] ED MED ADMINISTRATION DETAIL on 04-07-2025 ED MED ADMINISTRATION DETAIL Cuff Stitcher - CARMEN HARVEY : 1945, , Medication Administration Record [place] [address] [place] [address] [id number] 04/07/2025 Patient: CARMEN HARVEY Sex: Female : 1945 Age: 79y MEASUREMENTS: Wt: 77.1 kg, Ht/Manuel: 59.0 in, BMI: 34.34 ALLERGIES: Iodinated Contrast Media, Macrodantin, [place], Tessalon Perles, codeine, lisinopril, morphine, tramadol Medication Ordered Medication Administration Date/Time Zofran IVP 4 mg 13:04/07 Zofran IVP 4 mg given via Site# 1. Allergies verified Given (NOW x1) and confirmed 5 rights. Information reviewed with patient including 13:04/07/2025 reason for taking this medication. - 13:13 Faisal Pruett R.N. Scanned KetorOLAC 13:04/07 KetorOLAC (Toradol) IVP 15 mg given via Site# 1. Given (Toradol) IVP 15 mg Allergies verified and confirmed 5 rights. Information reviewed with 13:04/07/2025 (NOW x1) patient including reason for taking this medication. Medication Jorge Del Toro R.N. Wastage: 15 mg wasted. - 13:13 Jorge Del Toro R.N. Scanned HYDROmorphone 13:04/07 HYDROmorphone (Dilaudid) IVP 0.5 mg given via Given (Dilaudid) IVP 0.5 Site# 1. Allergies verified and confirmed 5 rights. Information 13:04/07/2025 mg (NOW x1, HIGH reviewed with patient including reason for taking this medication. Jorge Del Toro R.N. ALERT Medication Wastage: 0.5 mg wasted. - 13:13 Jorge Del Toro R.N. Scanned MEDICATION) HYDROmorphone 14:53 04/07 HYDROmorphone (Dilaudid) IVP 0.5 mg given via Given (Dilaudid) IVP 0.5 Site# 1. IV patency established. IV site checked: no pain, redness, 14:53 04/07/2025 mg (NOW x1, HIGH or swelling. IV flushed thoroughly pre-medication administration. LM Hahn Medication Wastage: 0.5 mg wasted. - 14:53 Rohini Marc R.N. MEDICATION) Faisal Scanned 1 of 1 Normal [facility] ED NURSES CLINICAL NOTEon ED NURSES CLINICAL NOTE Nurse Narrative - CARMEN HARVEY, : 1945, , Nurse Clinical Narrative [address] [address] [id number] 04/07/2025 12:32:00 Patient: CARMEN HARVEY Sex: Female : 1945 Age: 79y Disposition: Discharge to Home Disposition Decision Time: 15:32 04/07/2025 Departure Time: 15:45 04/07/2025 TRIAGE Arrived by private vehicle. Historian: (patient). Accompanied by family. Primary physician (Michael). Triage time: 12:38 04/07/2025. Acuity: LEVEL 3. Chief Complaint: FLANK PAIN. No nausea, vomiting, diarrhea or fever. SEPSIS SCREEN: NEGATIVE. SIRS criteria negative. No possible sources of infection. -- 12:41 04/07/25 EDT Jorge Del Toro R.N. 12:41 04/07/25. BP: 142/64 MAP: 90. HR: 76. RR: 18. O2 saturation: 99% Temperature: 97.6 F. Pain level now 10/10. -- 12:41 04/07/25 EDT Jorge Del Toro R.N. Measurements: 12:41 04/07/25 Wt: 77.1 kg, Ht/Manuel: 59.0 in, BMI: 34.34 -- 12:41 04/07/25 EDT Jorge Del Toro R.N. Medications: gabapentin 100 mg capsule -- 12:54 04/07/25 EDT Jorge Del Toro R.N. hydrochlorothiazide 12.5 mg tablet -- 12:54 04/07/25 EDT Jorge Del Toro R.N. 1 of [address] [facility] - WESCARMEN, : 1945, , Allergies: morphine -- 12:40 04/07/25 T Jorge Del Toro R.N. codeine -- 12:40 04/07/25 EDT Jorge Del Toro R.N. Iodinated Contrast Media -- 12:40 04/07/25 T Jorge Del Toro R.N. Macrodantin -- 12:40 04/07/25 T Jorge Del Toro R.N. lisinopril -- 12:40 04/07/25 T Jorge Del Toro R.N. tramadol -- 12:40 04/07/25 T Jorge Del Toro R.N. [place] -- 12:40 04/07/25 T Faisal Pruett -- 12:40 04/07/25 EDT Jorge Del Toro R.N. Problems: Coronary artery bypass grafting (procedure) -- 12:40 04/07/25 FAUSTOT Jorge Del Toro R.N. Anemia -- 12:40 04/07/25 T Jorge Del Toro R.N. Chronic kidney disease stage 3 -- 12:40 04/07/25 FAUSTOT Jorge Del Toro R.N. Osteoarthritis of multiple joints -- 12:40 04/07/25 FAUSTOT Jorge Del Toro R.N. Gastroparesis -- 12:40 04/07/25 FAUSTOT Jorge Del Toro R.N. Gastroesophageal Reflux Disease -- 12:40 04/07/25 FAUSTOT Jorge Del Toro R.N. Mitral Insufficiency -- 12:40 04/07/25 FAUSTOT Jorge Del Toro, R.N. Coronary Artery Disease -- 12:40 04/07/25 FAUSTOT Jorge Del Toro R.N. Hypertension -- 12:40 04/07/25 FAUSTOT Jorge Del Toro R.N. Sleep Apnea -- 12:40 04/07/25 FAUSTOT Jorge Del Toro R.N. Depression -- 12:40 04/07/25 FAUSTOT Jorge Del Toro R.N. Anxiety disorder -- 12:40 04/07/25 FAUSTOT Jorge Del Toro R.N. Hyperbilirubinemia -- 12:40 04/07/25 FAUSTOT Jorge Del Toro R.N. Hyperlipidemia -- 12:40 04/07/25 FAUSTOT Jorge Del Toro R.N. Diabetes Mellitus Type 2 -- 12:40 04/07/25 FAUSTOT Jorge Del Toro R.N. Surgeries: unable to obtain surgical history -- 12:46 04/07/25 KERRI Del Toro R.N. History 12:38 04/07/25. SOCIAL HX: Never smoker. No alcohol use or drug use. The patient has not traveled outside the [place] Infectious disease exposure: No infectious disease exposure. 2 of 4 Nurse Narrative - CARMEN HARVEY, : 1945, , ABUSE ASSESSMENT: The patient answered yes to the question(s) Do you feel safe in your home? and no to the question(s) Are you afraid to go home?. SELF HARM ASSESSMENT: Self harm assessment was performed. The patient answered no to the question(s) Have you recently felt down, depressed, or hopeless? and Do you have thoughts of harming or killing yourself?. FALL RISK ASSESSMENT: Fall risk assessment completed. Risk factors identified include severe pain. Fall interventions initiated. Patient placed on stretcher. Side rails up x2. Bed in low position. Patient visible from nurses' station and identified as a fall risk by ID band. -- 12:41 04/07/25 KERRI Del Toro R.N. Interventions 12:38 04/07/25. Advanced care plan discussed with patient. Patient does not have advanced directive. (full code). -- 12:41 04/07/25 KERRI Del Toro R.N. PHYSICAL ASSESSMENT 13:08 04/07/25. Ambulatory to room. ( pt states she hasn't had a good BM in about a week. Pt took laxative Monday.). GENERAL / NEURO / PSYCH: Alert. Oriented X 4. Appears in pain and anxious. HEENT: Mucous membranes are pink. RESPIRATORY: Respirations not labored. Breath sounds within normal limits. CVS: Normal sinus rhythm noted. Capillary refill less than 2 seconds. GI / : Abdomen soft. Abdominal tenderness in the right upper quadrant and right side of the abdomen. SKIN: Skin is warm and dry. -- 13:23 04/07/25 EDT Rohini Marc R.N. NURSING PROGRESS NOTES 13:06 04/07/25. Site #1 started in the right antecubital space with a 20g needle with aseptic technique and good blood return; 2 attempts. Blood drawn: rainbow set tube(s). Labeled in the presence of the patient and sent to the lab. Saline lock flushed with 10 mL saline. -- 13:11 04/07/25 EDT Jorge Del Toro R.N. 13: (more content not included)... Normal [facility] ED ORDER SHEET (CPOE ONLY)on 04-07-2025 ED ORDER SHEET (CPOE ONLY) Order Sheet - CARMEN HARVEY, : 1945, , Order Sheet [address] [address] [id number] 04/07/2025 Patient: CARMEN HARVEY Sex: Female : 1945 Age: 79y MEASUREMENTS: Wt: 77.1 kg, Ht/Manuel: 59.0 in, BMI: 34.34 ALLERGIES: Iodinated Contrast Media, Macrodantin, [place], Tessalon Perles, codeine, lisinopril, morphine, tramadol MEDICATION/IV/DRIP/FLUID ORDERS Order Description Priority Entered Acknowledged Completed Zofran IVP4 mg (NOW x1) 12:59 04/07/2025 13:13 Sarika Benitez M.D. 04/07/2025 Jorge Del Toro R.N. KetorOLAC (Toradol) IVP15 mg 12:59 04/07/2025 13:13 (NOW x1) Sarika Benitez M.D. 04/07/2025 Jorge Del Toro R.N. HYDROmorphone (Dilaudid) 12:59 04/07/2025 13:13 IVP0.5 mg (NOW x1, HIGH Sarika Benitez M.D. 04/07/2025 ALERT MEDICATION) Jorge Del Toro R.N. Reason for ordering with alerts: Clinical consideration given --12:59 04/07/2025 Sarika Benitez M.D. HYDROmorphone (Dilaudid) 14:49 04/07/2025 14:50 14:53 IVP0.5 mg (NOW x1, HIGH Sarika Benitez M.D. 04/07/2025 04/07/2025 1 of 3 Order Sheet - CARMEN HARVEY, : 1945, , ALERT MEDICATION) Faisal Rosenthal R.N. Reason for ordering with alerts: Clinical consideration given --14:49 04/07/2025 Sarika Benitez M.D. LAB ORDERS Order Description Priority Entered Acknowledged Collected Completed CBC w Diff Stat Stat 12:59 04/07/2025 13:11 04/07/2025 13:11 04/07/2025 Rohini Maldonado M.D., R.N. [place], Faisal Urinalysis Stat Stat 12:59 04/07/2025 13:11 04/07/2025 14:43 04/07/2025 Rohini Maldonado M.D., R.N. [place], R.N. CMP Stat Stat 14:21 04/07/2025 14:22 04/07/2025 14:22 04/07/2025 Rohini Maldonado M.D., R.N. [place], Faisal DIAGNOSTIC STUDY ORDERS Order Description Priority Entered Acknowledged Completed CT ABD/PEL wo Cont Stat Stat 12:59 04/07/2025 13:11 13:25 Sarika Benitez M.D. 04/07/2025 04/07/2025 Faisal Rosenthal, RLisa. Reason for Study: Abdominal Pain STAFF ORDERS Order Description Priority Entered Acknowledged Collected Completed IV Saline Lock 12:59 04/07/2025 13:11 04/07/2025 13:11 04/07/2025 Rohini Maldonado M.D., R.N. [place], RLisa. 2 of 3 Order Sheet - CARMEN HARVEY, : 1945, , [Electronically signed by Sarika Benitez M.D. (04/07/2025 15:29 EDT)] 3 of 3 Normal [facility] ED PHYSICIAN CLINICAL REPORT on 04-07-2025 ED PHYSICIAN CLINICAL REPORT Narrative - CARMEN HARVEY, : 1945, , Physician Clinical Narrative [address] [address] [id number] 04/07/2025 12:32:00 Patient: CARMEN HARVEY Sex: Female : 1945 Age: 79y Measurements Wt: 77.1 kg, Ht/Manuel: 59.0 in, BMI: 34.34 Initial Vital Sign Measured Time BP MAP HR RR O2Sat ETCO2 Temp Pain GCS RTS 12:41 04/07/2025 142/64 90 76 18 99% 97.6 F 10 Time Seen: 12:49 04/07/2025. Arrived- By private vehicle. Historian- patient. HISTORY OF PRESENT ILLNESS Chief Complaint: ABDOMINAL PAIN. It is described as located in the right flank and the right abdomen. This started today and is still present. The patient has had nausea. No vomiting. (Patient presents here with chief complaint of sudden onset right flank pain radiating to the right lower abdomen. This started suddenly. She said she had a kidney stone before in the past can not remember what it felt like. She states the pain is severe. Nothing really makes it better or worse. She has some nausea with it as well. No fever.). REVIEW OF SYSTEMS EYES: No blurred vision. RESPIRATORY: No difficulty breathing or cough. NEUROLOGICAL: No headache. CONSTITUTIONAL: No fever. : No difficulty with urination, pain with urination or urinary frequency. GI: No constipation, black stools or hematemesis. CVS: No chest pain. THROAT: No sore throat. 1 of 12 Birgit CARROLLBREANAKURTISCARMEN, : 1945, , PAST HISTORY See nurses notes. Anemia Anxiety disorder Chronic kidney disease stage 3 Coronary artery bypass grafting (procedure) Coronary Artery Disease Depression Diabetes Mellitus Type 2 Gastroesophageal Reflux Disease Gastroparesis Hyperbilirubinemia Hyperlipidemia Hypertension Mitral Insufficiency Osteoarthritis of multiple joints Sleep Apnea Surgeries: unable to obtain surgical history Medications: gabapentin 100 mg capsule hydrochlorothiazide 12.5 mg tablet Allergies: codeine Iodinated Contrast Media lisinopril Macrodantin morphine [place] Tessalon Perles tramadol 2 of 12 Birgit HARVEYCARMEN, : 1945, , ADDITIONAL NOTES The nursing notes have been reviewed. PHYSICAL EXAM Vital Signs: Have been reviewed. Appearance: Alert. No acute distress. Patient in moderate distress. Eyes: Pupils equal, round and reactive to light. Eyes normal inspection. ENT: Ears normal. Nose normal. Neck: Normal inspection. CVS: Normal heart rate. Heart sounds normal. Respiratory: No respiratory distress. Breath sounds normal. Chest nontender. Abdomen: Soft and nontender. No organomegaly. No mass. (I can not reproduce any tenderness to palpation). Back: CVA tenderness (right). Skin: Skin warm and dry. Normal skin color. Extremities: Extremities exhibit normal ROM. Neuro: Oriented X 3. No motor deficit. No sensory deficit. LABS, X-RAYS, AND EKG Laboratory Tests: CBC + DIFF Final PEE: 04/07/2025 13:05:00 EDT MsgRcvd: 04/07/2025 13:18 EDT Lab Test Result Reference Status Received 04/07/2025 13:18 CBC + DIFF Final EDT CBC-COMPLETE BLOOD COUNT 04/07/2025 13:18 WBC 9.9 x 10/UL 4.5 - 10.8 Final EDT 04/07/2025 13:18 RBC 4.43 x 10/UL 4.10 - 5.30 Final EDT 3 of 12 Birgit Ding CARMEN HARVEY, : 1945, , MRN: 04/07/2025 13:18 HEMOGLOBIN 12.8 g/dl 12.0 - 16.0 Final EDT 04/07/2025 13:18 HEMATOCRIT 37.8 % 34.0 - 46.0 Final EDT 04/07/2025 13:18 MCV 85 fl 80 - 99 Final EDT 04/07/2025 13:18 MCH 29 pg 27 - 33 Final EDT 04/07/2025 13:18 MCHC 34 X10 3 32 - 36 Final EDT 04/07/2025 13:18 RDW/CV 15.2 % 12.0 - 15.6 Final EDT 04/07/2025 13:18 PLATELET 230 x10/UL 150 - 450 Final EDT 04/07/2025 13:18 MPV 8.3 fl 6.6 - 10.5 Final EDT AUTOMATED DIFFERENTIAL 76.5 % 04/07/2025 13:18 NEUT % 46.0 - 76.0 Final Above high normal EDT 13.1 % 04/07/2025 13:18 LYMPH % 20.0 - 45.0 Final Below low normal EDT 04/07/2025 13:18 MONOS % 8.0 % 0.0 - 10.0 Final EDT 04/07/2025 13:18 EO % 2.2 % 0.0 - 7.0 Final EDT 04/07/2025 13:18 BASO % 0.2 % 0.0 - 2.0 Final EDT 4 of 12 Birgit HARVEY CARMEN, : 1945, , MRN: 04/07/2025 13:18 Lymph # 1.29 x10/UL 0.80 - 2.80 Final EDT 7.56 x10/UL 04/07/2025 13:18 Neut # 1.50 - 7.10 Final Above high normal EDT 04/07/2025 13:18 [place] # 0.79 x10/UL 0.20 - 1.00 Final EDT 04/07/2025 13:18 EO # 0.22 x10/UL 0.00 - 0.50 Final EDT 04/07/2025 13:18 Baso # 0.02 x10/UL 0.00 - 0.10 Final EDT 04/07/2025 13:18 MANUAL DIFF N/A New Order EDT 04/07/2025 13:18 MORPHOLOGY N/A New Order EDT CMP with eGFR Final PEE: 04/07/2025 (more content not included)... Normal [facility] ED SUPER BILLon 04-07-2025 [facility], : 1945, , [place] [address] [id number] 04/07/2025 Patient: CARMNE HARVEY Sex: Female : 1945 Age: 79y Item Facility Professional Category Description Code Code Quantity Fee Total Nurse/E/M EMERGENCY 847685 1 $0.00 $0.00 DEPARTMENT VISIT HIGH/URGENT SEVERITY (64813-13) Nurse/IV/IM/Infusions IVP additional 110181 2 $0.00 $0.00 push (51769) Nurse/IV/IM/Infusions IVP initial 134930 1 $0.00 $0.00 (82647) Nurse/IV/IM/Infusions IVP same med 454988 1 $0.00 $0.00 (31 min apart) (51863) Grand Total $0.00 Providers Sarika Benitez M.D. Chief Complaint 1 of 2 [facility] Timur CARMEN HARVEY, : 1945, , MRN: ABDOMINAL PAIN. Principal Diagnosis Abdominal pain. Renal colic. flank pain. ICD-10 Codes N23: Unspecified renal colic R10.9: Unspecified abdominal pain 2 of 2 Normal [facility] ED VISIT SUMMARYon ED VISIT SUMMARY Visit Overview - CARMEN GREGG, : 1945, , MRN: Visit [address] [address] [id number] 04/07/2025 Patient: CARMEN HARVEY Sex: Female : 1945 Age: 79y 04/07/2025 05:23 PM EDT ED Arrival:12:32 04/07/2025 EDT Status: Recent Travel:no Language:eng Adv Directive:No Isolation Status: Ethnicity:N Fall Risk:risk Infectious Disease Exposure:no Measurements:4'11 / 149.9 Self-Harm Status:risk Sepsis Screen:negative cm 170.0 lb / 77.1 kg Chief Complaint:FLANK PAIN and ([employer] ) ALLERGIES codeine Iodinated Contrast Media lisinopril Macrodantin morphine [place] Tessalon Perles tramadol HOME MEDICATIONS 1 of 4 Visit Svitlana - CARMEN HARVEY, : 1945, , MRN: gabapentin 100 mg capsule hydrochlorothiazide 12.5 mg tablet PAST MEDICAL HISTORY / PROBLEMS Anemia Anxiety disorder Chronic kidney disease stage 3 Coronary artery bypass grafting (procedure) Coronary Artery Disease Depression Diabetes Mellitus Type 2 Gastroesophageal Reflux Disease Gastroparesis Hyperbilirubinemia Hyperlipidemia Hypertension Mitral Insufficiency Osteoarthritis of multiple joints See nurses notes Sleep Apnea PAST SURGICAL HISTORY Unknown SOCIAL HISTORY Smoking status: No Alcohol use: No Drug use: No ED COURSE MEDICATIONS GIVEN IN EMERGENCY DEPARTMENT 13:09 04/07/25 KetorOLAC (Toradol) IVP 15 mg 13:09 04/07/25 Zofran IVP 4 mg 13:10 04/07/25 HYDROmorphone (Dilaudid) IVP 0.5 mg 2 of 4 Visit CARMEN Carvalho, : 1945, , MRN: 14:53 04/07/25 HYDROmorphone (Dilaudid) IVP 0.5 mg IV SITE INFORMATION INTAKE OUTPUT REASSESMENT (most recent) 13:08 04/07/25. Ambulatory to room. ( pt states she hasn't had a good BM in about a week. Pt took laxative Monday.). GENERAL / NEURO / PSYCH: Alert. Oriented X 4. Appears in pain and anxious. HEENT: Mucous membranes are pink. RESPIRATORY: Respirations not labored. Breath sounds within normal limits. CVS: Normal sinus rhythm noted. Capillary refill less than 2 seconds. GI / : Abdomen soft. Abdominal tenderness in the right upper quadrant and right side of the abdomen. SKIN: Skin is warm and dry. VITAL SIGNS First Vitals Last Vitals Temp 12:41 04/07/25 97.6 F Temp 15:38 04/07/25 BP 12:41 04/07/25 142/64 BP 15:38 04/07/25 120/53 HR 12:41 04/07/25 76 HR 15:38 04/07/25 73 RR 12:41 04/07/25 18 RR 15:38 04/07/25 16 O2 Sat 12:41 04/07/25 99% O2 Sat 15:38 04/07/25 99% Pain 12:41 04/07/25 10 Pain 15:38 04/07/25 3 ETCO2 12:41 04/07/25 ETCO2 15:38 04/07/25 GCS 12:41 04/07/25 GCS 15:38 04/07/25 RTS 12:41 04/07/25 RTS 15:38 04/07/25 PROCEDURES NURSING INTERVENTIONS LABS / STUDIES LABS / STUDIES ORDERED CBC w Diff CMP CT ABD/PEL wo Cont Urinalysis 3 of 4 Visit Overview - CARMEN HARVEY, : 1945, , MRN: CLINICAL IMPRESSION ABDOMINAL PAIN RENAL COLIC 4 of 4 Normal [facility] ED VITALS FLOW SHEETon 04-07 ED VITALS FLOW SHEET Vitals - CARMEN HARVEY, : 1945, , MRN: Vital Sign Flow Sheet [facility] [address] [place] [address] [id number] 04/07/2025 Patient: CARMEN HARVEY Sex: Female : 1945 Age: 79y Measurements Wt: 77.1 kg, Ht/Manuel: 59.0 in, BMI: 34.34 Measured Time BP MAP HR RR O2Sat ETCO2 Temp Pain GCS RTS 15:38 04/07/2025 120/53 75 73 16 99% 3 12:41 04/07/2025 142/64 90 76 18 99% 97.6 F 10 1 of 1 Normal [facility] URINALYSISon 04-07-2025 Amorphous NONE Normal [facility] Comment on above: Performed By: #### 2 [id number] #### [facility],[address] [place] [address] Bacteria NONE Normal [facility] Comment on above: Performed By: #### 2 [id number] #### [facility],[address] [place] [address]324 Bilirubin Ql (U) Negative Normal NORMAL: NEGATIVE [facility] Comment on above: Performed By: #### 2 87030 #### [facility],[address] [place] [address]695 Casts NONE Normal [facility] Comment on above: Performed By: #### 2 [id number] #### [facility],[address] [place] [address] 95357 Clarity (U) clear Normal NORMAL: CLEAR [facility] Comment on above: Performed By: #### 2 [id number] #### [facility],[address] [place] [address] 97346 Color (U) yellow Normal NORMAL: YELLOW [facility] Comment on above: Performed By: #### 2 [id number] #### [facility],[address] [place] [address] 84721 Crystals LM Nom (Urine sed) NONE Normal [facility] Comment on above: Performed By: #### 2 28145 #### [facility],[address] [place] [address] 30578 Epi Cells NONE Normal [facility] Comment on above: Performed By: #### 2 [id number] #### [facility],[address] [place] [address] 83784 ERROR DUE TO TYPING ERROR Normal [facility] Comment on above: Performed By: #### 2 54207 #### [facility],[address] [place] [address] 13596 Glucose Ql (U) 1000 Abnormal NORMAL: NORMAL [facility] Comment on above: Performed By: #### 2 66009 #### [facility],[address] [place] [address] 35596 Hemoglobin Ql (U) 25 Abnormal NORMAL: NEGATIVE [facility] Comment on above: Performed By: #### 2 76004 #### [facility],[address] [place] [address] 87147 Ketone Negative Normal NORMAL: NEGATIVE [facility] Comment on above: Performed By: #### 2 92321 #### [facility],[address] [place] [address] 31699 Leukocytes Negative Normal NORMAL: NEGATIVE [facility] Comment on above: Performed By: #### 2 68898 #### [facility],[address] [place] [address] 41714 Mucous NONE Normal [facility] Comment on above: Performed By: #### 2 34122 #### [facility],[address] [place] [address] 26648 Nitrite Ql (U) Negative Normal NORMAL: NEGATIVE [facility] Comment on above: Performed By: #### 2 70895 #### [facility],[address] [place] [address] 67560 pH (U) 6 [pH] Normal NORMAL: 5.0-8.0 [facility] Comment on above: Performed By: #### 2 65652 #### [facility],[address] [place] [address] 34546 Protein Ql (U) Negative Normal NORMAL: NEGATIVE [facility] Center Comment on above: Performed By: #### 2 06375 #### [facility],[address] [place] [address] 08748 Rbc 0-5 Normal 0-3/hpf [facility] Comment on above: Performed By: #### 2 58655 #### [facility],[address] [place] [address] 67307 Sp Fonda 1.010 Normal NORMAL: 1.010-1.030 [facility] Comment on above: Performed By: #### 2 03675 #### [facility],[address] [place] [address] 46653 Specimen Type R Normal [facility] Comment on above: Performed By: #### 2 13192 #### [facility],[address] [place] [address] 17424 Urinalysis dipstick W Reflex Microscopic panel (U) SEE BELOW Normal [facility] Comment on above: Result Comment: MICR OSCOPIC Performed By: #### 2 72161 #### [facility],[address] [place] [address] 73676 Urobilinog NORM Normal NORMAL: NORMAL [facility] Comment on above: Performed By: #### 2 30129 #### [facility],[address] [place] [address] 22144 Wbc NONE Normal 0-5/hpf [facility] Comment on above: Performed By: #### 2 42252 #### [facility],[address] [place] [address] 16160 Yeast NONE Normal [facility] Comment on above: Result Comment: ==== FOLLOWING RESULTS REPORTED IN ERROR Wbc 1-5 <-- *Previously reported in error [id number] . .M Rbc NONE <-- *Previously reported in error [id number] . .M Performed By: #### 2 09408 #### [facility],[address] [place] [address] 62213 PTH, INTACT [CCL]on 02-21-20 25 PTH, Intact 47 pg/mL Normal 15-65 [facility] Comment on above: Result Comment: [facility] [address] [place] [address] Drew Nj III, M.D. [id number] Performed By: #### 2 44510 #### [facility],[address] [place] [address] 20815 BMP with eGFRon 02-19-2025 AGE 79 years Normal [facility] Comment on above: Performed By: #### 2 85048 #### [facility],[address] [place] [address] 81246 Anion gap [Moles/Vol] 13 mmol/L Normal 10 - 20 [facility] Comment on above: Performed By: #### 2 37866 #### [facility],[address] [place] [address] 30255 BMP with eGFR Normal [facility] Comment on above: Result Comment: BASI C METABOLIC PANEL Performed By: #### 2 79762 #### [facility],[address] [place] [address] 42684 Calcium [Mass/Vol] 9.2 mg/dL Normal 8.5 - 10.1 [facility] Comment on above: Performed By: #### 2 30029 #### [facility],[address] [place] [address] 34023 Chloride [Moles/Vol] 101 mmol/L Normal 98 - 107 [facility] Comment on above: Performed By: #### 2 62645 #### [facility],[address] [place] [address] 40732 CO2 [Moles/Vol] 26.0 mmol/L Normal 21.0 - 32.0 [facility] Comment on above: Performed By: #### 2 95060 #### [facility],[address] [place] [address] 32069 Creatinine [Mass/Vol] 1.11 mg/dL High 0.55 - 1.02 [facility] Comment on above: Performed By: #### 2 67285 #### [facility],[address] [place] [address] 41305 eGFR 48 ML/MINUTE Low 60 - 999 [facility] Comment on above: Performed By: #### 2 73423 #### [facility],[address] [place] [address] 58342 eGFR(AA) 58 ML/MINUTE Low 60 - 999 [facility] Comment on above: Result Comment: ACCO RDING TO THE NATIONAL KIDNEY DISEASE EDUCATION PROGRAM(NKDE), A NORMAL eGFR IS A VALUE GREATER THAN OR EQUAL TO 60 ML/MIN/1.73 SQ METERS. CHRONIC KIDNEY DISEASE: <60mL/MIN/1.73 SQ METERS KIDNEY FAILURE: <15mL/MIN/1.73 SQ METERS THIS TEST SHOULD ONLY BE USED FOR PATIENTS 18 YEARS OF AGE AND OLDER. Performed By: #### 2 12762 #### [address] [address] Glucose [Mass/Vol] 204 mg/dL High 74 - 106 [facility] Comment on above: Performed By: #### 2 88766 #### [facility],[address] [place] [address] 25803 Potassium [Moles/Vol] 4.1 mmol/L Normal 3.5 - 5.1 [facility] Comment on above: Performed By: #### 2 80775 #### [facility],[address] [place] [address] 76046 Sodium [Moles/Vol] 136 mmol/L Normal 136 - 145 [facility] Comment on above: Performed By: #### 2 06550 #### [address],[place] [address] Urea nitrogen [Mass/Vol] 24 mg/dL High 7 - 18 [facility] Comment on above: Performed By: #### 2 59206 #### [facility],[address] [place] [address] 88997 CBC + DIFFon 02-19-2025 Baso # 0.03 x10EE3/UL Normal 0.00 - 0.10 [facility] Comment on above: Performed By: #### 2 61941 #### [facility],[address] [place] [address] 21994 Basophils/100 WBC (Bld) 0.4 % Normal 0.0 - 2.0 [facility] Comment on above: Performed By: #### 2 04744 #### [facility],[address] [place] [address] CBC + DIFF Normal [facility] Comment on above: Result Comment: CBC- COMPLETE BLOOD COUNT Performed By: #### 2 84277 #### [facility],[address] [place] [address] 20311 EO # 0.14 x10EE3/UL Normal 0.00 - 0.50 [facility] Comment on above: Performed By: #### 2 84685 #### [facility],[address] [place] [address] 83277 Eosinophils/100 WBC (Bld) 2.3 % Normal 0.0 - 7.0 [facility] Comment on above: Performed By: #### 2 31766 #### [facility],[address] [place] [address] 62546 Erythrocyte distribution width (RBC) [Ratio] 15.1 % Normal 12.0 - 15.6 [facility] Comment on above: Performed By: #### 2 10607 #### [facility],[address] [place] [address] 19348 Hematocrit (Bld) [Volume fraction] 36.2 % Normal 34.0 - 46.0 [facility] Comment on above: Performed By: #### 2 17835 #### [facility],[address] [place] [address] Hemoglobin (Bld) [Mass/Vol] 12.6 g/dL Normal 12.0 - 16.0 [facility] Comment on above: Performed By: #### 2 06813 #### [facility],[address] [place] [address] Lymph # 1.15 x10EE3/UL Normal 0.80 - 2.80 [facility] Comment on above: Performed By: #### 2 31751 #### [facility],[address] [place] [address] Lymphocytes/100 WBC (Bld) 18.4 % Low 20.0 - 45.0 [facility] Comment on above: Performed By: #### 2 36695 #### [facility],[address] [place] [address] MANUAL DIFF N/A Normal [facility] Comment on above: Performed By: #### 2 08700 #### [facility],[address] [place] [address] MCH (RBC) [Entitic mass] 30 pg Normal 27 - 33 [facility] Comment on above: Performed By: #### 2 64957 #### [facility],[address] [place] [address] MCHC 35 X10 3 Normal 32 - 36 [facility] Comment on above: Performed By: #### 2 83576 #### [facility],[address] [place] [address] 17483 MCV (RBC) [Entitic vol] 85 fL Normal 80 - 99 [facility] Comment on above: Performed By: #### 2 31498 #### [facility],[address] [place] [address] [place] # 0.54 x10EE3/UL Normal 0.20 - 1.00 [facility] Comment on above: Performed By: #### 2 03306 #### [facility],[address] [place] [address] 33841 MONOS % 8.6 % Normal 0.0 - 10.0 [facility] Comment on above: Performed By: #### 2 46228 #### [facility],[address] [place] [address] 53885 Morphology Hardy (Bld) [Interp] N/A Normal [facility] Comment on above: Performed By: #### 2 01177 #### [facility],[address] [place] [address] 52171 Neut # 4.40 x10EE3/UL Normal 1.50 - 7.10 [facility] Comment on above: Performed By: #### 2 34098 #### [facility],[address] [place] [address] 10687 Neutrophils/100 WBC (Bld) 70.4 % Normal 46.0 - 76.0 [facility] Comment on above: Performed By: #### 2 76764 #### [facility],[address] [place] [address] 31226 PLATELET 199 x10EE3/UL Normal 150 - 450 [facility] Comment on above: Performed By: #### 2 83106 #### [facility],[address] [place] [address] 79272 Platelet mean volume (Bld) [Entitic vol] 8.3 fL Normal 6.6 - 10.5 [facility] Comment on above: Result Comment: AUTO MATED DIFFERENTIAL Performed By: #### 2 69178 #### [facility],[address] [place] [address] 23500 RBC 4.27 x 10EE6/UL Normal 4.10 - 5.30 [facility] Comment on above: Performed By: #### 2 01516 #### [facility],[address] [place] [address] 74398 WBC 6.3 x 10EE3/UL Normal 4.5 - 10.8 [facility] Comment on above: Performed By: #### 2 27688 #### [facility],[address] [place] [address] 06951 PTH-Intact SerPl-mCncon Parathyrin.intact [Mass/Vol] 47 pg/mL Normal 15-65 [facility] Comment on above: Order Comment: Speci men Type: BLOOD SPECIMEN Ordering Facility: [facility] Address: [address] [place], [place] [address] Performed By: #### 2 731-8 #### [facility] CLIA [id number] [address] [place] [address] [place] [facility] URIC ACIDon 02-19-2025 Urate [Mass/Vol] 4.6 mg/dL Normal 2.6 - 6.0 [facility] Comment on above: Performed By: #### 2 53885 #### [facility],[address] [place] [address] 36827 URINE CREATININE AND PROTEIN RATIOon 02-19-2025 CREATININE UR <13.00 Normal [facility] Comment on above: Performed By: #### 2 65502 #### [facility],[address] [place] [address] 44268 PC RATIO 0.12 mg/dL Normal 0.00 - 10.00 [facility] Comment on above: Performed By: #### 2 99526 #### [facility],[address] [place] [address] 77170 URINE TOTAL PROTEIN <6.00 Normal 0.00 - 10.00 [facility] Comment on above: Performed By: #### 2 73403 #### [facility],[address] [place] [address] 14270 VITAMIN D, 25 HYDROXYon VitD 52.60 ng/mL Normal 30.00 - 100 [facility] Comment on above: Result Comment: 25-O HD3 indicates both endogenous production and supplementation. 25-OHD2 is an indicator of exogenous sources, such as diet or supplementation. Therapy is based on measurement of Total 25-OHD, with levels <20 ng/mL indicative of Vitamin D deficiency, while levels between 20 ng/mL and 30 ng/mL suggest insufficiency. Optimal levels are >=30ng/mL. Vitamin D, 25-OH D3 Not Established Vitamin D, 25-OH D2 Not Established Performed By: #### 2 28669 #### [facility],[address] [place] [address] 18001 CBC + DIFFon 01-15-2025 Baso # 0.02 x10EE3/UL Normal 0.00 - 0.10 [facility] Comment on above: Performed By: #### 2 12350 #### [facility],[address] [place] [address] 93722 Basophils/100 WBC (Bld) 0.3 % Normal 0.0 - 2.0 [facility] Comment on above: Performed By: #### 2 79929 #### [facility],[address] [place] [address] 17558 CBC + DIFF Normal [facility] Comment on above: Result Comment: CBC- COMPLETE BLOOD COUNT Performed By: #### 2 63991 #### [facility],[address] [place] [address] 12863 EO # 0.25 x10EE3/UL Normal 0.00 - 0.50 [facility] Comment on above: Performed By: #### 2 80403 #### [facility],[address] [place] [address] 44997 Eosinophils/100 WBC (Bld) 4.0 % Normal 0.0 - 7.0 [facility] Comment on above: Performed By: #### 2 43315 #### [facility],[address] [place] [address] 21080 Erythrocyte distribution width (RBC) [Ratio] 15.1 % Normal 12.0 - 15.6 [facility] Comment on above: Performed By: #### 2 39933 #### [facility],[address] [place] [address] 73572 Hematocrit (Bld) [Volume fraction] 36.0 % Normal 34.0 - 46.0 [facility] Comment on above: Performed By: #### 2 12501 #### [facility],[address] [place] [address] 67993 Hemoglobin (Bld) [Mass/Vol] 12.2 g/dL Normal 12.0 - 16.0 [facility] Comment on above: Performed By: #### 2 90931 #### [facility],[address] [place] [address] 87352 Lymph # 1.33 x10EE3/UL Normal 0.80 - 2.80 [facility] Comment on above: Performed By: #### 2 48032 #### [facility],[address] [place] [address] 36302 Lymphocytes/100 WBC (Bld) 21.2 % Normal 20.0 - 45.0 [facility] Comment on above: Performed By: #### 2 80175 #### [facility],[address] [place] [address] 74178 MANUAL DIFF N/A Normal [facility] Comment on above: Performed By: #### 2 31958 #### [facility],[address] [place] [address] 64845 MCH (RBC) [Entitic mass] 30 pg Normal 27 - 33 [facility] Comment on above: Performed By: #### 2 61319 #### [facility],[address] [place] [address] 40899 MCHC 34 X10 3 Normal 32 - 36 [facility] Comment on above: Performed By: #### 2 17966 #### [facility],[address] [place] [address] 95501 MCV (RBC) [Entitic vol] 87 fL Normal 80 - 99 [facility] Comment on above: Performed By: #### 2 57244 #### [facility],[address] [place] [address] 09453 [place] # 0.55 x10EE3/UL Normal 0.20 - 1.00 [facility] Comment on above: Performed By: #### 2 97918 #### [facility],[address] [place] [address] 12582 MONOS % 8.8 % Normal 0.0 - 10.0 [facility] Comment on above: Performed By: #### 2 88656 #### [facility],[address] [place] [address] 73920 Morphology Hardy (Bld) [Interp] N/A Normal [facility] Comment on above: Performed By: #### 2 15351 #### [facility],[address] [place] [address] 19782 Neut # 4.13 x10EE3/UL Normal 1.50 - 7.10 [facility] Comment on above: Performed By: #### 2 11652 #### [facility],[address] [place] [address] 68781 Neutrophils/100 WBC (Bld) 65.8 % Normal 46.0 - 76.0 [facility] Comment on above: Performed By: #### 2 08656 #### [facility],[address] [place] [address] 56443 PLATELET 218 x10EE3/UL Normal 150 - 450 [facility] Comment on above: Performed By: #### 2 91518 #### [facility],[address] [place] [address] 10385 Platelet mean volume (Bld) [Entitic vol] 9.0 fL Normal 6.6 - 10.5 [facility] Comment on above: Result Comment: AUTO MATED DIFFERENTIAL Performed By: #### 2 23415 #### [facility],[address] [place] [address] 94653 RBC 4.14 x 10EE6/UL Normal 4.10 - 5.30 [facility] Comment on above: Performed By: #### 2 98400 #### [facility],[address] [place] [address] 70718 WBC 6.3 x 10EE3/UL Normal 4.5 - 10.8 [facility] Comment on above: Performed By: #### 2 87332 #### [facility],[address] [place], [place] [address] CMP with eGFRon 01-15-2025 AGE 79 years Normal [facility] Comment on above: Performed By: #### 2 57507 #### [facility],[address] [place] [address] 04379 Albumin [Mass/Vol] 3.4 g/dL Normal 3.4 - 5.0 [facility] Comment on above: Performed By: #### 2 93030 #### [facility],[address] [place] [address] Albumin/Globulin [Mass ratio] 1.1 {ratio} Normal 0.9 - 1.6 [facility] Comment on above: Performed By: #### 2 02861 #### [facility],[address] [place] [address] 49435 ALK PHOS 129 U/L High 46 - 116 [facility] Comment on above: Performed By: #### 2 50312 #### [facility],[address] [place] [address] 68320 ALT [Catalytic activity/Vol] 19 U/L Normal 16 - 63 [facility] Comment on above: Performed By: #### 2 96966 #### [facility],[address] [place] [address] 30160 Anion gap [Moles/Vol] 13 mmol/L Normal 10 - 20 [facility] Comment on above: Performed By: #### 2 90848 #### [facility],[address] [place] [address] 01614 AST [Catalytic activity/Vol] 18 U/L Normal 13 - 39 [facility] Comment on above: Performed By: #### 2 33097 #### [facility],[address] [place] [address] 07862 B/C RATIO 23 ratio Normal 0 - 30 [facility] Comment on above: Performed By: #### 2 13133 #### [facility],[address] [place] [address] 07780 Bilirubin [Mass/Vol] 2.3 mg/dL High 0.2 - 1.0 [facility] Comment on above: Performed By: #### 2 07987 #### [facility],[address] [place], [place] [address] Calcium [Mass/Vol] 9.2 mg/dL Normal 8.5 - 10.1 [facility] Comment on above: Performed By: #### 2 78201 #### [facility],[address] [place], [place] [address] Chloride [Moles/Vol] 103 mmol/L Normal 98 - 107 [facility] Comment on above: Performed By: #### 2 24894 #### [facility],[address] [place] [address] CMP with eGFR Normal [facility] Comment on above: Result Comment: COMP REHENSIVE METABOLIC PANEL Performed By: #### 2 61045 #### [facility],[address] [place] [address] 79914 CO2 [Moles/Vol] 27.4 mmol/L Normal 21.0 - 32.0 [facility] Comment on above: Performed By: #### 2 21091 #### [facility],[address] [place] [address] 52824 Creatinine [Mass/Vol] 1.09 mg/dL High 0.55 - 1.02 [facility] Comment on above: Performed By: #### 2 90666 #### [facility],[address],[place] [address] eGFR 49 ML/MINUTE Low 60 - 999 [facility] Comment on above: Performed By: #### 2 71832 #### [facility],[address] [place] [address] 78664 eGFR(AA) 59 ML/MINUTE Low 60 - 999 [facility] Comment on above: Result Comment: ACCO RDING TO THE NATIONAL KIDNEY DISEASE EDUCATION PROGRAM(NKDE), A NORMAL eGFR IS A VALUE GREATER THAN OR EQUAL TO 60 ML/MIN/1.73 SQ METERS. CHRONIC KIDNEY DISEASE: <60mL/MIN/1.73 SQ METERS KIDNEY FAILURE: <15mL/MIN/1.73 SQ METERS THIS TEST SHOULD ONLY BE USED FOR PATIENTS 18 YEARS OF AGE AND OLDER. Performed By: #### 2 92860 #### [facility],[address] [place] [address] 64020 Globulin (S) [Mass/Vol] 3.1 g/dL Normal 1.5 - 3.8 [facility] Comment on above: Performed By: #### 2 21129 #### [facility],[address] [place] [address] 80458 Glucose [Mass/Vol] 129 mg/dL High 74 - 106 [facility] Comment on above: Performed By: #### 2 00540 #### [facility],[address] [place] [address] 55962 Potassium [Moles/Vol] 3.9 mmol/L Normal 3.5 - 5.1 [facility] Comment on above: Performed By: #### 2 32395 #### [facility],[address] [place] [address] 54312 Protein [Mass/Vol] 6.5 g/dL Normal 6.4 - 8.2 [facility] Comment on above: Performed By: #### 2 87413 #### [facility],[address] [place] [address] 99070 Sodium [Moles/Vol] 139 mmol/L Normal 136 - 145 [facility] Comment on above: Performed By: #### 2 67924 #### [facility],[address] [place] [address] 44006 Urea nitrogen [Mass/Vol] 25 mg/dL High 7 - 18 [facility] Comment on above: Performed By: #### 2 73744 #### [facility],[address] [place] [address] 59913 HEMOGLOBIN A1C (POM)on 01-15 Glucose [Mass/Vol] 145.6 mg/dL High 0.0 - 0.0 [facility] Comment on above: Result Comment: BLDo HEMOGLOBIN A1C REFERENCE RANGESBLDo Suggested Diagnosis HbA1c(%) HbA1C (mmol/mol Diabetic >/=6.5 >/=48 Prediabetes 5.7 - 6.4 39 - 47 Normal <5.7 <39 Performed By: #### 2 74090 #### [facility],[address] [place] [address] 78498 HbA1c (Bld) [Mass fraction] 6.7 % High 0.0 - 6.5 [facility] Comment on above: Performed By: #### 2 02068 #### [facility],[address] [place] [address] 87292 LIPID PROFILEon 01-15-2025 Cholesterol [Mass/Vol] 107 mg/dL Normal 0 - 240 [facility] Comment on above: Performed By: #### 2 45243 #### [facility],[address] [place] [address] 95506 Cholesterol in HDL [Mass/Vol] 47 mg/dL Normal 40 - 60 [facility] Comment on above: Performed By: #### 2 46032 #### [facility],[address] [place] [address] 84773 Cholesterol in LDL [Mass/Vol] 37 mg/dL Normal 0 - 129 [facility] Comment on above: Performed By: #### 2 31785 #### [facility],[address] [place] [address] 98274 Cholesterol.total/Ch olesterol in HDL [Mass ratio] 2.3 {ratio} Normal 0.0 - 5.0 [facility] Comment on above: Performed By: #### 2 29311 #### [facility],[address] [place] [address] 77234 Lipid 1996 panel Normal [facility] Comment on above: Result Comment: LIPI D PROFILE Performed By: #### 2 40021 #### [facility],[address] [place] [address] Triglyceride [Mass/Vol] 115 mg/dL Normal 0 - 150 [facility] Comment on above: Performed By: #### 2 84891 #### [facility],[address] [place] [address] MAGNESIUMon 01-15-2025 Magnesium [Mass/Vol] 1.9 mg/dL Normal 1.8 - 2.4 [facility] Comment on above: Performed By: #### 2 72607 #### [facility],[address] [place], [place] [address] TSHon 01-15-2025 TSH Qn 3.05 m[IU]/L Normal 0.35 - 3.74 [facility] Comment on above: Performed By: #### 2 62540 #### [facility],[address] [place], [place] [address] URINE MICROALBUMIN W/CREATIN INE, RANDOMon 01-15-2025 CREATININE UR 44.96 mg/dl Normal [facility] Comment on above: Performed By: #### 2 20845 #### [facility],[address] [place] [address] 54283 MICROALBUMIN UR 0.2 mg/dL Normal 0.1 - 11.6 [facility] Comment on above: Performed By: #### 2 [id number] #### [facility],[address] [place] [address] 53440 UACR 4 mg/g Normal [facility] Comment on above: Performed By: #### 2 86818 #### [facility],[address] [place] [address] 05866 VITAMIN B-12on 01-15-2025 Cobalamin (Vitamin B12) [Mass/Vol] 1142 pg/mL High 193 - 986 [facility] Comment on above: Performed By: #### 2 85964 #### [facility],[address] [place] [address] 12238 VITAMIN D, 25 HYDROXYon 12-20 VitD 54.90 ng/mL Normal 30.00 - 100 [facility] Comment on above: Result Comment: 25-O HD3 indicates both endogenous production and supplementation. 25-OHD2 is an indicator of exogenous sources, such as diet or supplementation. Therapy is based on measurement of Total 25-OHD, with levels <20 ng/mL indicative of Vitamin D deficiency, while levels between 20 ng/mL and 30 ng/mL suggest insufficiency. Optimal levels are >=30ng/mL. Vitamin D, 25-OH D3 Not Established Vitamin D, 25-OH D2 Not Established Performed By: #### 2 14975 #### [facility],[address] [place] [address] [place] [address] BMP with eGFR DAILYon 2024 AGE 79 years Normal [facility] Comment on above: Performed By: #### 2 62866 #### [facility],[address] [place] [address] 51186 Anion gap [Moles/Vol] 11 mmol/L Normal 10 - 20 [facility] Comment on above: Performed By: #### 2 51606 #### [facility],[address] [place] [address] 29368 BMP with eGFR DAILY Normal [facility] Comment on above: Result Comment: BASI C METABOLIC PANEL Performed By: #### 2 46611 #### [facility],[address] [place] [address] 55093 Calcium [Mass/Vol] 8.7 mg/dL Normal 8.5 - 10.1 [facility] Comment on above: Performed By: #### 2 37097 #### [facility],[address] [place] [address] 45082 Chloride [Moles/Vol] 103 mmol/L Normal 98 - 107 [facility] Comment on above: Performed By: #### 2 80990 #### [facility],[address] [place] [address] 75558 CO2 [Moles/Vol] 26.3 mmol/L Normal 21.0 - 32.0 [facility] Comment on above: Performed By: #### 2 97438 #### [facility],[address] [place] [address] 05711 Creatinine [Mass/Vol] 0.92 mg/dL Normal 0.55 - 1.02 [facility] Comment on above: Performed By: #### 2 57281 #### [facility],[address] [place] [address] 92608 eGFR 59 ML/MINUTE Low 60 - 999 [facility] Comment on above: Performed By: #### 2 79740 #### [facility],[address] [place] [address] 40328 GFR/1.73 sq M.predicted among non-blacks MDRD (S/P/Bld) [Vol rate/Area] mL/min/{1.73_m2} Normal 60 - 999 [facility] Comment on above: Result Comment: ACCO RDING TO THE NATIONAL KIDNEY DISEASE EDUCATION PROGRAM(NKDE), A NORMAL eGFR IS A VALUE GREATER THAN OR EQUAL TO 60 ML/MIN/1.73 SQ METERS. CHRONIC KIDNEY DISEASE: <60mL/MIN/1.73 SQ METERS KIDNEY FAILURE: <15mL/MIN/1.73 SQ METERS THIS TEST SHOULD ONLY BE USED FOR PATIENTS 18 YEARS OF AGE AND OLDER. Performed By: #### 2 94907 #### [facility],[address] [place] [address] 10334 Glucose [Mass/Vol] 163 mg/dL High 74 - 106 [facility] Comment on above: Performed By: #### 2 54669 #### [facility],[address] [place] [address] 76800 Potassium [Moles/Vol] 3.7 mmol/L Normal 3.5 - 5.1 [facility] Comment on above: Performed By: #### 2 11433 #### [facility],[address] [place] [address] 37203 Sodium [Moles/Vol] 137 mmol/L Normal 136 - 145 [facility] Comment on above: Performed By: #### 2 05528 #### [facility],[address] [place] [address] 58014 Urea nitrogen [Mass/Vol] 21 mg/dL High - [facility] Comment on above: Performed By: #### 2 77119 #### [facility],[address] [place] [address] 12235 CBC + DIFFon 12-09-2024 Baso # 0.01 x10EE3/UL Normal 0.00 - 0.10 [facility] Comment on above: Performed By: #### 2 98876 #### [facility],[address] [place] [address] 51714 Basophils/100 WBC (Bld) 0.2 % Normal 0.0 - 2.0 [facility] Comment on above: Performed By: #### 2 41931 #### [facility],[address] [place] [address] 32889 CBC + DIFF Normal [facility] Comment on above: Result Comment: CBC- COMPLETE BLOOD COUNT Performed By: #### 2 08067 #### [facility],[address] [place] [address] 57500 EO # 0.11 x10EE3/UL Normal 0.00 - 0.50 [facility] Comment on above: Performed By: #### 2 28084 #### [facility],[address] [place] [address] 13674 Eosinophils/100 WBC (Bld) 1.4 % Normal 0.0 - 7.0 [facility] Comment on above: Performed By: #### 2 07773 #### [facility],[address] [place] [address] Erythrocyte distribution width (RBC) [Ratio] 14.2 % Normal 12.0 - 15.6 [facility] Comment on above: Performed By: #### 2 09304 #### [facility],[address] [place] [address] Hematocrit (Bld) [Volume fraction] 33.2 % Low 34.0 - 46.0 [facility] Comment on above: Performed By: #### 2 46497 #### [facility],[address] [place] [address] Hemoglobin (Bld) [Mass/Vol] 11.3 g/dL Low 12.0 - 16.0 [facility] Comment on above: Result Comment: TEST REPEATED Performed By: #### 2 05605 #### [facility],[address] [place], [place] [id number] Lymph # 0.73 x10EE3/UL Low 0.80 - 2.80 [facility] Comment on above: Performed By: #### 2 03897 #### [facility],[address] [place] [address] Lymphocytes/100 WBC (Bld) 9.8 % Low 20.0 - 45.0 [facility] Comment on above: Performed By: #### 2 39969 #### [facility],[address] [place], [place] [id number] MANUAL DIFF N/A Normal [facility] Comment on above: Performed By: #### 2 54402 #### [facility],[address] [place], [place] [id number] MCH (RBC) [Entitic mass] 29 pg Normal 27 - 33 [facility] Comment on above: Performed By: #### 2 54192 #### [facility],[address] [place], [place] [address] MCHC 34 X10 3 Normal 32 - 36 [facility] Comment on above: Performed By: #### 2 26107 #### [facility],[address] [place] [address] MCV (RBC) [Entitic vol] 86 fL Normal 80 - 99 [facility] Comment on above: Performed By: #### 2 58724 #### [facility],[address] [place] [address] [place] # 0.50 x10EE3/UL Normal 0.20 - 1.00 [facility] Comment on above: Performed By: #### 2 33722 #### [facility],[address] [place] [address] MONOS % 6.8 % Normal 0.0 - 10.0 [facility] Comment on above: Performed By: #### 2 81178 #### [facility],[address] [place] [address] Morphology Hardy (Bld) [Interp] N/A Normal [facility] Comment on above: Performed By: #### 2 47222 #### [facility],[address] [place] [address] Neut # 6.10 x10EE3/UL Normal 1.50 - 7.10 [facility] Comment on above: Performed By: #### 2 49640 #### [facility],[address] [place] [address] Neutrophils/100 WBC (Bld) 81.9 % High 46.0 - 76.0 [facility] Comment on above: Performed By: #### 2 44856 #### [facility],[address] [place] [address] PLATELET 182 x10EE3/UL Normal 150 - 450 [facility] Comment on above: Performed By: #### 2 77199 #### [facility],[address] [place] [address] Platelet mean volume (Bld) [Entitic vol] 7.9 fL Normal 6.6 - 10.5 [facility] Comment on above: Result Comment: AUTO MATED DIFFERENTIAL Performed By: #### 2 07611 #### [facility],[address] [place] [address] 61123 RBC 3.88 x 10EE6/UL Low 4.10 - 5.30 [facility] Comment on above: Performed By: #### 2 83105 #### [facility],[address] [place] [address] 45139 WBC 7.5 x 10EE3/UL Normal 4.5 - 10.8 [facility] Comment on above: Performed By: #### 2 49332 #### [facility],[address] [place] [address] 86470 CV ECHO COMPLETE CV ECHO COMPLETE [place] [address] Patient: CARMEN HARVEY Phone#: : 1945 Age: 79 Gender: F Pt. Type: In Account: [id number] Location: [facility] Ordering: DR. TIRSO BRANCH Exam Date: 12/09/2024/9:16 Family Phys: ANN MARIE CASTANO Charge Code: [id number] Physician: Patrick Order #: [id number] Dose#: PROCEDURE: ECHOCARDIOGRAM WITH DOPPLER AND COLOR FLOW HISTORY: HYSTERECTOMY, TUBAL, CHOLECYSTECTOMY open heart INDICATIONS: Chest pain COMPARISON: None. TECHNIQUE: A 2-D ultrasound, color spectral Doppler and M-mode evaluation of the heart and great vessels. PATIENT MEASUREMENTS: Height (in.): 59 BSA: 1.78 Weight (lbs.): 185 BP: 150/77 [employer]: EMMANUEL M MODE 2D MEASUREMENTS AND CALCULATIONS: LVIDd: 4.25 cm LVIDs: 2.53 cm IVSd: 0.81 cm LVPWd: 0.93 cm LVOT diam: 1.95 cm FS: 40.53 % Ao Root diam: 2.84 cm LA diam: 3.9 cm LA Volume Index: 27 mL/m2 LA A4 Area: 10.77 cm2 RA A4 Area: 9.6 cm2 RVDd: 3.0 cm TAPSE: 17.9 mm DOPPLER MEASUREMENTS AND CALCULATIONS MITRAL MV A MAX rodri: 1.02 m/s MVA VTI 3.53 cm2 MV V2 max: 1.11 m/s MV max P.93 mm[Hg] MV V2 mean: 0.79 m/s Continued Report - Page 2 of 3 Patient: CARMEN HARVEY Phone#: : 1945 Age: 79 Gender: F Pt. Type: In Account: [id number] Location: 010 Ordering: DR. TIRSO BRANCH Exam Date: 12/09/2024/9:16 Family Phys: ANN MARIE PHELPSARABELLAAundrea Charge Code: [id number] Physician: Patrick Order #: [id number] Dose#: MV mean P.66 mm[Hg] MV V2 VTI: 14.61 cm Lat Peak E' Rodri 12 cm/seconds Septal Peak E' RODRI AORTIC Ao V2 max: 1.20 m/s Ao max P.78 mm[Hg] Ao V2 mean: 0.85 m/s Ao mean P.21 mm[Hg] Ao V2 VTI: 22.87 cm YRN (V Max): 2.19 cm2 YRN (VTI): 2.26 cm2 LV V1 Max 0.88 m/s LV V1 Max PG 3.10 mm[Hg] LV V1 Mean PG 1.96 mm[Hg] LV V1 mean 0.69 m/s LV V1 VTI 17.22 cm PULMONIC PA V2 Max 1.18 m/s PA Max PG 5.57 mm[Hg] TRICUSPID TR Max Rodri 2.35 m/s TR max PG 22.07 mm[Hg] RVSP 23 mm Hg 2D/M-MODE AND COLOR FLOW LEFT VENTRICLE: Left ventricle is normal in size and thickness. Systolic ejection fraction is more than 70%. There are no regional wall motion abnormality seen. WALL MOTION: 1 - Basal anterior: Normal. 7 - Mid anterior: Normal. 13 - Apical anterior: Normal. 2 - Basal anteroseptal: Normal. 8 - Mid anteroseptal: Normal. 14 - Apical septal: Normal. 3 - Basal inferoseptal: Normal. 9 - Mid inferoseptal: Normal. 15 - Apical inferior: Normal. 4 - Basal inferior: Normal. 10-Mid inferior: Normal. 16 - Apical lateral: Normal. 5 - Basal inferolateral: Normal. 11-Mid inferolateral: Normal. 6 - Basal anterolateral: Normal. 12-Mid anterolateral: Normal. RIGHT VENTRICLE: Right ventricle is normal in size and systolic function. LEFT ATRIUM: Left atrium is normal size. RIGHT ATRIUM: Right atrium is normal size. ATRIAL SEPTUM: There is no large interatrial shunt seen. PFO was not assessed. Continued Report - Page 3 of 3 Patient: CARMEN HARVEY Phone#: : 1945 Age: 79 Gender: F Pt. Type: In Account: [id number] Location: [facility] Ordering: DR. TIRSO BRANCH Exam Date: 12/09/2024/9:16 Family Phys: ANN MARIE OMAIRA Charge Code: [id number] Physician: Patrick Order #: [id number] Dose#: MITRAL VALVE: There is mild mitral annular calcification seen. Mitral valve leaflets have fibrocalcific changes. There is trivial regurgitation and no stenosis seen. TRICUSPID VALVE: Tricuspid valve is normal structure. There is mild regurgitation and no stenosis seen AORTIC VALVE: Aortic valve is trileaflet with sclerosis. There is no regurgitation or stenosis seen PULMONIC VALVE: Pulmonic valve is inadequately visualized for there is no regurgitation or stenosis seen AORTIC ROOT: Aortic root is normal in size. AORTIC ARCH: Inadequately visualized. DESC THORACIC AORTA: Inadequately visualized. Doppler shows normal flow IVC/SVC: IVC is normal size more than 50% collapse of inspiration. Estimated atrial pressure is 3 mm Hg PULMONARY VEINS: Normal pulmonic vein flow. PERICARDIUM: There is no pericardial effusion seen CONCLUSION: 1. Left ventricle is normal in size and thickness. Systolic ejection fraction is more than 70% with normal wall motion. 2. There is mild mitral annular calcification seen. Mitral valve leaflets have fibrocalcific changes. There is trivial mitral valve regurgitation. 3. There is mild tricuspid valve regurgitation seen 4. Aortic valve is trileaflet with sclerosis without stenosis or regurgitation. 5. Right ventricle is normal size and systolic function. 6. Estimated with systolic pressure is 23 mm Hg. Dictated by: KAUSHIK VALENTINE MD on 12/09/2024 at 10:13 Approved by: KAUSHIK VALENTINE MD on 12/09/2024 at 10:26 Normal [facility] HEMOGLOBIN A1C (POM)on 12-09 Glucose [Mass/Vol] 142.7 mg/dL High 0.0 - 0.0 [facility] Comment on above: Result Comment: BLDo HEMOGLOBIN A1C REFERENCE RANGESBLDo Suggested Diagnosis HbA1c(%) HbA1C (mmol/mol Diabetic >/=6.5 >/=48 Prediabetes 5.7 - 6.4 39 - 47 Normal <5.7 <39 Performed By: #### 2 26702 #### [facility],[address] [place] [address] 64385 HbA1c (Bld) [Mass fraction] 6.6 % High 0.0 - 6.5 [facility] Comment on above: Performed By: #### 2 45764 #### [facility],[address] [place] [address] 64264 LIPID PROFILEon 12-09-2024 Cholesterol [Mass/Vol] 107 mg/dL Normal 0 - 240 [facility] Comment on above: Performed By: #### 2 07597 #### [facility],[address] [place] [address] 75417 Cholesterol in HDL [Mass/Vol] 51 mg/dL Normal 40 - 60 [facility] Comment on above: Performed By: #### 2 17163 #### [facility],[address] [place] [address] 80104 Cholesterol in LDL [Mass/Vol] 32 mg/dL Normal 0 - 129 [facility] Comment on above: Performed By: #### 2 48008 #### [facility],[address] [place] [address] 75557 Cholesterol.total/Ch olesterol in HDL [Mass ratio] 2.1 {ratio} Normal 0.0 - 5.0 [facility] Comment on above: Performed By: #### 2 16093 #### [facility],[address] [place] [address] 94627 Lipid 1996 panel Normal [facility] Comment on above: Result Comment: LIPI D PROFILE Performed By: #### 2 12928 #### [facility],[address] [place] [address] 00880 Triglyceride [Mass/Vol] 118 mg/dL Normal 0 - 150 [facility] Comment on above: Performed By: #### 2 88532 #### [facility],[address] [place] [address] 82106 [facility] CARDIAC STRESS (SPECT) W/[place] [address] Patient: CARMEN HARVEY Phone#: : 1945 Age: 79 Gender: F Pt. Type: Out Account: [id number] Location: [facility] Ordering: DR. TIRSO BRANCH Exam Date: 12/09/2024/7:51 Family Phys: ANN MARIE CASTANO Charge Code: [id number] Physician: Patrick Order #: [id number] Dose#: PROCEDURE: CARDIAC STRESS SPECT WITH LEXISCAN HISTORY: HYSTERECTOMY, TUBAL, CHOLECYSTECTOMY open heart COMPARISON: None. INDICATIONS: Patient 79-year-old female with CAD TECHNIQUE: Resting and post Lexiscan stress SPECT images acquired in the horizontal long, vertical long and short axis views. Protocol: Lexiscan Duration: 0.4mg over 10 seconds Peak Heart Rate: 141 bpm, which is 99% of maximum predicted heart rate. Workload: not applicable REST DOSE: 11.3 mCi Sestamibi. STRESS DOSE: 34.3 mCi Sestamibi. INTERPRETATION: Resting Images: Resting images showed mild perfusion defect in mid to distal inferolateral [place]. Post Lexiscan stress Images: Gated SPECT showed mild perfusion defect in the basal to distal inferolateral [place] unchanged from resting images. There is subdiaphragmatic, breast attenuation artifact seen. Gated SPECT/wall motion: Gated SPECT showed calculated ejection fraction of 79%. There are no regional wall motion abnormality seen. TID ratio is 1.12 CONCLUSION: 1. Nuclear stress test showed no conclusive evidence of reversible ischemia. 2. There is fixed defect in the inferolateral wall without wall motion abnormality to suggest infarct. 3. There is subdiaphragmatic, soft tissue and motion attenuation artifact that can affect the specificity of the study. 4. Calculated ejection fraction is 79% with normal wall motion Continued Report - Page 2 of 2 Patient: JESSICAJESUSCARMEN NEIL Phone#: : 1945 Age: 79 Gender: F MRN: Pt. Type: Out Account: [id number] Location: 010 Ordering: DR. TIRSO BRANCH Exam Date: 12/09/2024/7:51 Family Phys: ANN MARIE CASTANO Charge Code: [id number] Physician: Patrick Order #: [id number] Dose#: 5. TID ratio is normal. Dictated by: KAUSHIK VALENTINE MD on 12/09/2024 at 11:08 Approved by: KAUSHIK VALENTINE MD on 12/09/2024 at 11:23 Normal [facility] NM EXERCISE STRESS TEST (W/C ARDIAC STUDYon 12-09-2024 NM EXERCISE STRESS TEST (W/CARDIAC STUDY [place] [address] Patient: CARMEN HARVEY Phone#: : 1945 Age: 79 Gender: F MRN: Pt. Type: In Account: [id number] Location: 010 Ordering: DR. TIRSO BRANCH Exam Date: 12/09/2024/7:51 Family Phys: ANN MARIE CASTANO Charge Code: [id number] Physician: Patrick Order #: [id number] Dose#: PROCEDURE: ELECTROCARDIOGRAM STRESS TEST HISTORY: HYSTERECTOMY, TUBAL, CHOLECYSTECTOMY open heart COMPARISON: None. INDICATIONS: Patient 79-year-old female with CAD TECHNIQUE: Electrocardiogram stress test was performed using the protocol listed below. STRESS RESULTS: Protocol: Lexiscan Duration: 0.4mg over 10 seconds Reason for termination: infusion complete Resting Heart Rate: 100 bpm. Resting Blood Pressure: 144/92 mmHg Peak Heart Rate: 141 which is 99% of maximum predicted heart rate Blood pressure with LexiscanWith Lexiscan infusion blood pressure decreased to127/82 Workload: 1.70 METs. Symptoms with stress: Patient did not complain of any chest pain. She had nausea which improved during recovery. EKG Data EKG at Baseline: EKG at baseline showed sinus rhythm at 87 BPM. There are no ischemic ST or T-wave abnormality seen EKG with Stress: EKG with stress showed sinus tachycardia at 141 BPM. There are [address] depression seen in leads I and II during early recovery which fulfills criteria for ischemia. CONCLUSION: Continued Report - Page 2 of 2 Patient: CARMEN HARVEY Phone#: : 1945 Age: 79 Gender: F Pt. Type: In Account: [id number] Location: [facility] Ordering: DR. TIRSO BRANCH Exam Date: 12/09/2024/7:51 Family Phys: ANN MARIE OMAIRA Charge Code: [id number] Physician: Patrick Order #: [id number] Dose#: 1. Patient not complain of any chest pain with stress. She had nausea which improved during recovery. 2. Patient had normal physiologic response with stress 3. Stress EKG is positive for inducible ischemia 4. Nuclear images will be reported separately. Dictated by: KAUSHIK VALENTINE MD on 12/09/2024 at 9:36 Approved by: KAUSHIK VALENTINE MD on 12/09/2024 at 9:42 Normal [facility] ED MED ADMINISTRATION DETAIL on 12-08-2024 ED MED ADMINISTRATION DETAIL Cuff Stitcher Medication Administration Record [address] [place] [address] [id number] 12/07/2024 Patient: CARMEN HARVEY Sex: Female : 1945 Age: 79y MEASUREMENTS: Wt: 99.8 kg ALLERGIES: Iodinated Contrast Media, Macrodantin, [place], Tessalon Perles, codeine, lisinopril, morphine, tramadol Medication Ordered Medication Administration Date/Time Aspirin PO Chew 22:12/07 Aspirin PO Chew 324 mg given. Allergies verified and Given 324 mg (NOW x1) confirmed 5 rights. Information reviewed with patient including :12/07/2024 reason for taking this medication. Verbalizes understanding. - Gilmar Coleman R.N. 22: Gilmar Coleman R.N. Scanned NitroGLYCERIN 22:12/07 NitroGLYCERIN Paste Topical 1 inch given. Applied to Given Paste Topical 1 the left upper back. Allergies verified and confirmed 5 rights. 22:12/07/2024 inch (NOW x1) Information reviewed with patient including reason for taking this Gilmar Coleman R.N. medication. Verbalizes understanding. - : Gilmar Coleman R.N. Scanned Ondansetron IVP 4 :12/07 Ondansetron IVP 4 mg given via Site# 1. Allergies Given mg (NOW x1) verified and confirmed 5 rights. IV patency established. IV site :12/07/2024 checked: no pain, redness, or swelling. IV flushed thoroughly Gilmar Coleman R.N. pre-medication administration. Information reviewed with patient Scanned including reason for taking this medication. Verbalizes understanding. - : Gilmar Coleman R.N. Potassium Chloride 01:12/08 Potassium Chloride PO 20 mEq given. Allergies Given PO 20 mEq (NOW verified and confirmed 5 rights. Information reviewed with patient 01:12/08/2024 x1) including reason for taking this medication. Verbalizes Gilmar Coleman R.N. understanding. - 01: Gilmar Coleman R.N. Scanned 1 of 1 Normal [facility] ED NURSES CLINICAL NOTEon ED NURSES CLINICAL NOTE Nurse Narrative Nurse Clinical [address] [id number] 12/07/2024 21:58:00 Patient: CARMEN HARVEY Sex: Female : 1945 Age: 79y Disposition: Observation to Med/Surg Disposition Decision Time: :12/08/2024 Departure Time: 12/08/2024 TRIAGE Arrived by private vehicle. Historian: (patient). Accompanied by family. Triage time: 22:00 12/07/2024. Acuity: LEVEL 3. Chief Complaint: NAUSEA. This started just prior to arrival. SEPSIS SCREEN: NEGATIVE. SIRS criteria negative. No possible sources of infection. -- 22:12/07/24 EDT Raad Armenta R.N. 22:12/07/24. BP: 115/57 MAP: 76. HR: 89. RR: 16. O2 saturation: 98% Temperature: 97.7 F. Pain level now 0/10. -- 22:12/07/24 EDT Raad Armenta R.N. Measurements: :12/07/24 Wt: 99.8 kg -- :12/07/24 EDT Raad Armenta R.N. Medications: potassium chloride ER 20 mEq tablet,extended release(part/cryst) -- 00:12/08/24 EDT Gilmar Coleman R.N. atorvastatin 40 mg tablet -- 00:12/08/24 EDT Gilmar Coleman R.N. omeprazole 20 mg capsule,delayed release -- 00:12/08/24 EDT Gilmar Coleman R.N. metoprolol succinate ER 50 mg tablet,extended release 24 hr -- 00:12/08/24 EDT Gilmar Coleman R.N. 1 of 5 Nurse Narrative montelukast 10 mg tablet -- 00:12/08/24 EDT Gilmar Coleman R.N. sucralfate 1 gram tablet -- 00:12/08/24 EDT Gilmar Coleman R.N. ondansetron HCl 4 mg tablet -- 00:12/08/24 EDT Gilmar Coleman R.N. nystatin 100,000 unit/gram topical powder: APPLY POWDER TOPICALLY TO AFFECTED AREA NEEDED -- 00:12/08/24 FAUSTOT Gilmar Coleman R.N. albuterol sulfate HFA 90 mcg/actuation aerosol inhaler -- 00:20 12/08/24 EDT Gilmar Coleman R.N. magnesium oxide 400 mg (241.3 mg magnesium) tablet -- 00:12/08/24 EDT Gilmar Coleman R.N. cholestyramine (with sugar) 4 gram oral powder -- 00:20 12/08/24 ED Gilmar Coleman R.N. Eliquis 5 mg tablet -- 00:20 12/08/24 EDT Gilmar Coleman R.N. Novolin N NPH U-100 Insulin isophane 100 unit/mL subcutaneous susp -- 00:20 12/08/24 ED Gilmar Coleman R.N. losartan 100 mg tablet -- 00:20 12/08/24 EDT Gilmar Coleman R.N.Correction -- 00:41 12/08/24 EDT Gilmar Coleman R.N. triamterene 37.5 mg-hydrochlorothiazide 25 mg capsule -- 00:20 12/08/24 ED Gilmar Coleman R.N.Correction -- 00:46 12/08/24 ED Gilmar Coleman R.N. lorazepam 0.5 mg tablet -- 00:20 12/08/24 ED Gilmar Coleman R.N. Jardiance 10 mg tablet -- 00:20 12/08/24 ED Gilmar Coleman R.N. Paxlovid 300 mg (150 mg x 2)-100 mg tablets in a dose pack -- 00:20 12/08/24 KERRI Coleman R.N.Correction -- 00:44 12/08/24 [facility] Gilmar Coleman R.N. Jardiance 10 mg tablet: 5 once a day . (1/2 pill daily) -- 00:39 12/08/24 Bharati Coleman R.N. lorazepam 0.5 mg tablet: three times a day . -- 00:40 12/08/24 EDT Gilmar Coleman R.N. losartan 100 mg tablet: 100 mg once a day . -- 00:42 12/08/24 EDT Gilmar Coleman R.N. Novolin N NPH U-100 Insulin isophane 100 unit/mL subcutaneous susp: (30 U am, 20 U pm) -- 00:43 12/08/24 EDT Gilmar Coleman R.N. Imodium A-D 2 mg tablet: 2 mg as needed for diarrhea. -- 00:48 04/20/25 KERRI Coleman R.N. Vitamin C 250 mg tablet: 500 mg once a day . -- 00:50 12/08/24 KERRI Coleman R.N. NovoLIN R FlexPen 100 unit/mL (3 mL) subcutaneous insulin pen: 1 sliding scale dose . -- 00:51 12/08/24 KERRI Coleman R.N. triamterene 37.5 mg-hydrochlorothiazide 25 mg capsule: 1 cap once a day . -- 00:52 12/08/24 KERRI Coleman R.N. vitamin B12 500 mcg-folic acid 400 mcg tablet: 1 tab . -- 00:52 12/08/24 KERRI Coleman R.N. Ventolin HFA 90 mcg/actuation aerosol inhaler: 2 inhalations four times a day as needed. -- 00:53 12/08/24 KERRI Coleman R.N. Niacin Flush Free 750 mg capsule: once a day . -- 00:53 12/08/24 KERRI Coleman R.N. famotidine 20 mg tablet: 20 mg . -- 00:54 12/08/24 KERRI Coleman R.N. Claritin 10 mg tablet: 10 mg as needed. -- 00:55 12/08/24 KERRI Coleman R.N. cholecalciferol (vitamin D3) 25 mcg (1,000 unit) capsule: 75 mcg once a day . -- 00:55 12/08/24 KERRI Coleman R.N. Calcium 500 + D 500 mg-5 mcg (200 unit) tablet: 2 tabs once a day . -- 00:56 12/08/24 KERRI Coleman R.N. biotin 5,000 mcg chewable tablet: once a day . -- 00:57 12/08/24 KERRI Coleman R.N. TylenoL 325 mg tablet: 650 mg every 4 hours as needed. -- 00:57 12/08/24 KERRI Coleman R.N. 2 of 5 Nurse Narrative this is the best I can do -- 00:57 12/08/24 KERRI Coleman R.N. Allergies: morphine -- 22:01 12/07/24 EDT Raad Armenta R.N. codeine -- 22:01 12/07/24 EDT Arlyn Lizama.NLesia Iodinated Contrast Media -- 22:01 12/07/24 EDT Arlyn Lziama.NLesia Macrodantin -- 22:01 12/07/24 EDT Sophia LizamaN. lisinopril -- 22:01 12/07/24 EDT Arlyn Lizama.N. tramadol -- 22:02 12/07/24 EDT Arlyn Lizama.N. [place] -- 22:02 12/07/24 EDT Arlyn Lizama.Supriya Tessalon Perles -- 22:02 12/07/24 EDT Raad Armenta R.Supriya Problems: Coronary artery bypass grafting (procedure) -- (more content not included)... Normal [facility] ED ORDER SHEET (CPOE ONLY)on 12-08-2024 ED ORDER SHEET (CPOE ONLY) Order Sheet Order Sheet [address] [address] [id number] 12/07/2024 Patient: CARMEN HARVEY Sex: Female : 1945 Age: 79y MEASUREMENTS: Wt: 99.8 kg ALLERGIES: Iodinated Contrast Media, Macrodantin, [place], Tessalon Perles, codeine, lisinopril, morphine, tramadol MEDICATION/IV/DRIP/FLUID ORDERS Order Description Priority Entered Acknowledged Completed Aspirin PO Hrod102 mg (NOW 22:13 12/07/2024 22:21 22:31 x1) Rom Gomez D.O. 12/07/2024 12/07/2024 Faisal Brody R.N. NitroGLYCERIN Paste Topical1 22:13 12/07/2024 22:21 22:31 inch (NOW x1) Rom Gomez D.O. 12/07/2024 12/07/2024 Faisal Brody R.N. Ondansetron IVP4 mg (NOW x1) 22:13 12/07/2024 22:21 22:29 Rom Gomez D.O. 12/07/2024 12/07/2024 Faisal Brody R.N. Potassium Chloride PO20 mEq 00:27 12/08/2024 01:00 01:05 (NOW x1) Rom Gomez D.O. 12/08/2024 12/08/2024 Faisal Brody R.NLesia Reason for ordering with alerts: Clinical consideration given --00:27 12/08/2024 Rom Gomez D.O. 1 of 4 Order Sheet LAB ORDERS Order Description Priority Entered Acknowledged Collected Completed CBC w Diff Stat Stat 22:13 12/07/2024 22:15 12/07/2024 22:21 12/07/2024 Erik Beltran Seth Lapp, R.N. E.M.T.-P. BNP Stat Stat 22:13 12/07/2024 22:15 12/07/2024 22:21 12/07/2024 Erik Beltran Seth Lapp, R.N. E.M.T.-P. CMP Stat Stat 22:13 12/07/2024 22:15 12/07/2024 22:21 12/07/2024 Erik Beltran Seth Lapp, R.N. E.M.T.-P. D-Dimer Stat Stat 22:13 12/07/2024 22:15 12/07/2024 22:21 12/07/2024 Erik Beltran Seth Lapp, R.N. E.M.T.-P. EKG - ED Stat Stat 22:13 12/07/2024 22:15 12/07/2024 22:15 12/07/2024 Erik Beltran Bryan Parker, E.M.T.-P. E.M.T.-P. Troponin-I Protocol Stat 22:13 12/07/2024 22:15 12/07/2024 22:22 12/07/2024 (STAT 1hr) (Sched: q1h Erik Beltran Seth Lapp, R.NLesia X2); Stat 1 of 2 E.M.T.-P. Troponin-I Protocol Stat 22:13 12/07/2024 22:15 12/07/2024 23:49 12/07/2024 (STAT 1hr) (Sched: q1h Erik Beltran Seth Lapp, R.N. X2); Stat 2 of 2 E.M.T.-P. Lipase Stat Stat 22:16 12/07/2024 22:21 12/07/2024 22:22 12/07/2024 Erik Beltran RLesiaNLesia Coleman R.N. Flu Swab (Influenzae Stat 22:17 12/07/2024 22:21 12/07/2024 22:41 12/07/2024 AAg) Stat Erik Beltran R.N. Seth Lapp R.NLesia Rapid COVID (SARS) Stat 22:17 12/07/2024 22:21 12/07/2024 22:41 12/07/2024 2 of 4 Order Sheet ANTIGEN TEST Stat Erik Beltran R.N. Seth Lapp R.NLesia DIAGNOSTIC STUDY ORDERS Order Description Priority Entered Acknowledged Completed Chest 1V Stat Stat 22:13 12/07/2024 22:15 23:46 Rom Gomez D.O. 12/07/2024 12/07/2024 Gilmar Rodriguez R.N. E.M.T.-P. Order Comments: 22:12 12/07/2024: Status: Not . Rom Gomez D.O. Reason for Study: Chest Pain STAFF ORDERS Order Description Priority Entered Acknowledged Collected Completed Obtain Old EKG 22:13 12/07/2024 22:15 12/07/2024 22:56 12/07/2024 Erik Beltran Seth Lapp, R.N. E.M.T.-P. Oxygen titrate to 92% 22:13 12/07/2024 22:15 12/07/2024 22:22 12/07/2024 Erik Beltran Seth Lapp, R.N. 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 E.M.T.-Geovanna Repeat EKG in 45 Min 22:13 12/07/2024 Cancelled: Physician Order Rom Gomez D.O. 23:54 EDT Gilmar Coleman R.N. IV Saline Lock 22:13 12/07/2024 22:15 12/07/2024 22:22 12/07/2024 Erik Beltran Seth Lapp, R.N. E.M.TLesia-PLesia 3 of 4 Order Sheet [Electronically signed by Rom Gomez D.O. (12/08/2024 05:47 EDT)] 4 of 4 Normal [facility] ED PHYSICIAN CLINICAL REPORT on 12-08-2024 ED PHYSICIAN CLINICAL REPORT Narrative Physician Clinical Narrative [address] [address] [id number] 12/07/2024 21:58:00 Patient: CARMEN HARVEY Sex: Female : 1945 Age: 79y Disposition: Observation to Med/Surg Disposition Decision Time: 01:02 12/08/2024 Departure Time: 01:22 12/08/2024 Measurements Wt: 99.8 kg Initial Vital Sign Measured Time BP MAP HR RR O2Sat ETCO2 Temp Pain GCS RTS 22:07 12/07/2024 115/57 76 89 16 98% 97.7 F 0 Time Seen: 21:55 12/07/2024. Arrived- By private vehicle. Historian- patient. Independent historian- family. HISTORY OF PRESENT ILLNESS Chief Complaint: CHEST PAIN. Complaining of chest pressure midsternal. It is described as pressure and it is described as located in the central chest area. At its maximum, severity described as moderate. When seen in the E.D., severity described as moderate. The patient has had nausea. No vomiting or difficulty breathing. Similar symptoms previously. None. Recent medical care: Not recently seen/assessed. REVIEW OF SYSTEMS 1 of 16 Narrative GI: No abdominal pain or black stools. EYES: No blurred vision. NEUROLOGICAL: No fainting episodes or headache. CVS: No pedal edema or calf pain. RESPIRATORY: No cough. CONSTITUTIONAL: No fever or chills. : No difficulty with urination. THROAT: No sore throat. Status: Not . PAST HISTORY See nurses notes. Anemia Anxiety disorder Chronic kidney disease stage 3 Coronary artery bypass grafting (procedure) Coronary Artery Disease Depression Diabetes Mellitus Type 2 Gastroesophageal Reflux Disease Gastroparesis Hyperbilirubinemia Hyperlipidemia Hypertension Mitral Insufficiency Osteoarthritis of multiple joints Sleep Apnea Surgeries: unable to obtain surgical history Medications: albuterol sulfate HFA 90 mcg/actuation aerosol inhaler atorvastatin 40 mg tablet biotin 5,000 mcg chewable tablet: once a day . Calcium 500 + D 500 mg-5 mcg (200 unit) tablet: 2 tabs once a day . cholecalciferol (vitamin D3) 25 mcg (1,000 unit) capsule: 75 mcg once a day . cholestyramine (with sugar) 4 gram oral powder Claritin 10 mg tablet: 10 mg as needed. Eliquis 5 mg tablet famotidine 20 mg tablet: 20 mg . 2 of 16 Narrative Imodium A-D 2 mg tablet: 2 mg as needed for diarrhea. Jardiance 10 mg tablet: 5 once a day . (1/2 pill daily) lorazepam 0.5 mg tablet: three times a day . losartan 100 mg tablet: 100 mg once a day . magnesium oxide 400 mg (241.3 mg magnesium) tablet metoprolol succinate ER 50 mg tablet,extended release 24 hr montelukast 10 mg tablet Niacin Flush Free 750 mg capsule: once a day . Novolin N NPH U-100 Insulin isophane 100 unit/mL subcutaneous susp: (30 U am, 20 U pm) NovoLIN R FlexPen 100 unit/mL (3 mL) subcutaneous insulin pen: 1 sliding scale dose . nystatin 100,000 unit/gram topical powder: APPLY POWDER TOPICALLY TO AFFECTED AREA NEEDED omeprazole 20 mg capsule,delayed release ondansetron HCl 4 mg tablet potassium chloride ER 20 mEq tablet,extended release(part/cryst) sucralfate 1 gram tablet this is the best I can do triamterene 37.5 mg-hydrochlorothiazide 25 mg capsule: 1 cap once a day . TylenoL 325 mg tablet: 650 mg every 4 hours as needed. Ventolin HFA 90 mcg/actuation aerosol inhaler: 2 inhalations four times a day as needed. vitamin B12 500 mcg-folic acid 400 mcg tablet: 1 tab . Vitamin C 250 mg tablet: 500 mg once a day . Allergies: codeine Iodinated Contrast Media lisinopril Macrodantin morphine [place] Tessalon Perles tramadol SOCIAL HISTORY Heavy tobacco smoker- less than 1 pack per day. No alcohol use or drug use. ADDITIONAL NOTES The nursing notes have been reviewed. 3 of 16 Narrative PHYSICAL EXAM Appearance: Alert. Oriented X3. No acute distress. Eyes: Pupils equal, round and reactive to light. ENT: Nose normal. Pharynx normal. Neck: Normal inspection. Neck supple. CVS: Normal heart rate and rhythm. Heart sounds normal. Pulses normal. Respiratory: No respiratory distress. Breath sounds normal. Chest nontender. Abdomen: Soft and nontender. Bowel sounds normal. No mass. Skin: Skin warm and dry. No rash. Extremities: Extremities exhibit normal ROM. No lower extremity edema. Neuro: Oriented X 3. No motor deficit. No sensory deficit. LABS, X-RAYS, AND EKG 12-LEAD EKG: EKG time: 22:10 12/07/2024. Normal sinus rhythm. Rate: 85. Normal P waves. Normal QRS complex. Normal ST and T waves. The study has been interpreted contemporaneously by me. The EKG appears to be a good tracing. Interpretation time: 22:11 12/07/2024. Chest X-ray: No acute disease. Views: PA. Technique: good. The X-rays were independently viewed by me. Interpretation time: 23:42 12/07/2024. Laboratory Tests: CBC + DIFF Final PEE: 12/07/2024 22: (more content not included)... Normal [facility] ED SUPER BILLon 12-08-2024 [facility] [address] [address] [id number] 12/07/2024 Patient: CARMEN HARVEY Sex: Female : 1945 Age: 79y Item Facility Professional Category Description Code Code Quantity Fee Total Nurse/E/M EMERGENCY 111634 1 $0.00 $0.00 DEPARTMENT VISIT HIGH/URGENT SEVERITY (32836-63) Nurse/IV/IM/Infusions IVP initial 971676 1 $0.00 $0.00 (89125) Grand Total $0.00 Providers Rom Gomez D.O. Chief Complaint CHEST PAIN. Complaining of chest pressure midsternal. Principal Diagnosis Chest pain characterized as pressure. 1 of 2 [facility] ICD-10 Codes R07.89: Other chest pain 2 of 2 Normal [facility] ED VISIT SUMMARYon ED VISIT SUMMARY Visit Overview Visit Overview [address] [address] [id number] 12/07/2024 Patient: CARMEN HARVEY Sex: Female : 1945 Age: 79y 12/08/2024 05:47 AM EDT ED Arrival:21:58 12/07/2024 EDT Status:not Recent Travel:no Language:eng Adv Directive:No Isolation Status: Ethnicity:N Fall Risk:no risk Infectious Disease Exposure:no Measurements:220.0 lb / 99.8 kg Self-Harm Status:risk Sepsis Screen:negative Chief Complaint:NAUSEA ALLERGIES codeine Iodinated Contrast Media lisinopril Macrodantin morphine [place] Tessalon Perles tramadol HOME MEDICATIONS albuterol sulfate HFA 90 mcg/actuation aerosol inhaler atorvastatin 40 mg tablet 1 of 4 Visit Overview biotin 5,000 mcg chewable tablet: once a day . Calcium 500 + D 500 mg-5 mcg (200 unit) tablet: 2 tabs once a day . cholecalciferol (vitamin D3) 25 mcg (1,000 unit) capsule: 75 mcg once a day . cholestyramine (with sugar) 4 gram oral powder Claritin 10 mg tablet: 10 mg as needed. Eliquis 5 mg tablet famotidine 20 mg tablet: 20 mg . Imodium A-D 2 mg tablet: 2 mg as needed for diarrhea. Jardiance 10 mg tablet: 5 once a day . (1/2 pill daily) lorazepam 0.5 mg tablet: three times a day . losartan 100 mg tablet: 100 mg once a day . magnesium oxide 400 mg (241.3 mg magnesium) tablet metoprolol succinate ER 50 mg tablet,extended release 24 hr montelukast 10 mg tablet Niacin Flush Free 750 mg capsule: once a day . Novolin N NPH U-100 Insulin isophane 100 unit/mL subcutaneous susp: (30 U am, 20 U pm) NovoLIN R FlexPen 100 unit/mL (3 mL) subcutaneous insulin pen: 1 sliding scale dose . nystatin 100,000 unit/gram topical powder: APPLY POWDER TOPICALLY TO AFFECTED AREA NEEDED omeprazole 20 mg capsule,delayed release ondansetron HCl 4 mg tablet potassium chloride ER 20 mEq tablet,extended release(part/cryst) sucralfate 1 gram tablet this is the best I can do triamterene 37.5 mg-hydrochlorothiazide 25 mg capsule: 1 cap once a day . TylenoL 325 mg tablet: 650 mg every 4 hours as needed. Ventolin HFA 90 mcg/actuation aerosol inhaler: 2 inhalations four times a day as needed. vitamin B12 500 mcg-folic acid 400 mcg tablet: 1 tab . Vitamin C 250 mg tablet: 500 mg once a day . PAST MEDICAL HISTORY / PROBLEMS Anemia Anxiety disorder Chronic kidney disease stage 3 Coronary artery bypass grafting (procedure) Coronary Artery Disease Depression 2 of 4 Visit Overview Diabetes Mellitus Type 2 Gastroesophageal Reflux Disease Gastroparesis Hyperbilirubinemia Hyperlipidemia Hypertension Mitral Insufficiency Osteoarthritis of multiple joints See nurses notes Sleep Apnea PAST SURGICAL HISTORY Unknown SOCIAL HISTORY Smoking status: Yes Alcohol use: No Drug use: No ED COURSE MEDICATIONS GIVEN IN EMERGENCY DEPARTMENT 22:29 12/07/24 Ondansetron IVP 4 mg 22:30 12/07/24 NitroGLYCERIN Paste Topical 1 inch 22:31 12/07/24 Aspirin PO Chew 324 mg 01:05 12/08/24 Potassium Chloride PO 20 mEq IV SITE INFORMATION 22:19 12/07/24 Site #1 right wrist, 20g. Saline lock. INTAKE OUTPUT REASSESMENT (most recent) 3 of 4 Visit Overview 22:48 12/07/24. Ambulatory to room. ( pt states nausea, denies vomiting, complains of chest pressure, /. states started earlier today). GENERAL / NEURO / PSYCH: Alert. Oriented X 4. Appears in distress. HEENT: Pupils equal, round and reactive to light. RESPIRATORY: Respirations not labored. VITAL SIGNS First Vitals Last Vitals Temp 22:07 12/07/24 97.7 F Temp 01:07 12/08/24 BP 22:07 12/07/24 115/57 BP 01:07 12/08/24 106/46 HR 22:07 12/07/24 89 HR 01:07 12/08/24 82 RR 22:07 12/07/24 16 RR 01:07 12/08/24 18 O2 Sat 22:07 12/07/24 98% O2 Sat 01:07 12/08/24 98% Pain 22:07 12/07/24 0 Pain 01:07 12/08/24 ETCO2 22:07 12/07/24 ETCO2 01:07 12/08/24 GCS 22:07 12/07/24 GCS 01:07 12/08/24 RTS 22:07 12/07/24 RTS 01:07 12/08/24 PROCEDURES NURSING INTERVENTIONS LABS / STUDIES LABS / STUDIES ORDERED BNP CBC w Diff Chest 1V CMP D-Dimer EKG - ED Flu Swab (Influenzae AAg) Lipase Rapid COVID (SARS) ANTIGEN TEST Troponin-I Protocol (STAT 1hr) Troponin-I Protocol (STAT 1hr) CLINICAL IMPRESSION CHEST PAIN CHARACTERIZED PRESSURE 4 of 4 Normal [facility] ED VITALS FLOW SHEETon 12-08 ED VITALS FLOW SHEET Vitals Vital Sign Flow Sheet [address] [place] [address] [id number] 12/07/2024 Patient: CARMEN HARVEY Sex: Female : 1945 Age: 79y Measurements Wt: 99.8 kg Measured Time BP MAP HR RR O2Sat ETCO2 Temp Pain GCS RTS 01:07 12/08/2024 106/46 66 82 18 98% 22:07 12/07/2024 115/57 76 89 16 98% 97.7 F 0 1 of 1 Normal [facility] TROPONINon 12-08-2024 HS TROPONIN 4.9 pg/mL Normal 0.0 - 51.4 [facility] Comment on above: Performed By: #### 2 [id number] #### [facility],[address] [place] [address] TROPONIN I, HIGH SENSITIVITY on 12-08-2024 HS TROPONIN <4.0 Normal 0.0 - 51.4 [facility] Comment on above: Performed By: #### 2 [id number] #### [facility],[address] [place] [address] CBC + DIFFon 12-07-2024 Baso # 0.02 x10EE3/UL Normal 0.00 - 0.10 [facility] Comment on above: Performed By: #### 2 31034 #### [facility],[address] [place] [address] Basophils/100 WBC (Bld) 0.1 % Normal 0.0 - 2.0 [facility] Comment on above: Performed By: #### 2 87662 #### [facility],[address] [place] [address] CBC + DIFF Normal [facility] Comment on above: Result Comment: CBC- COMPLETE BLOOD COUNT Performed By: #### 2 16365 #### [facility],[address] [place] [address] EO # 0.17 x10EE3/UL Normal 0.00 - 0.50 [facility] Comment on above: Performed By: #### 2 95005 #### [facility],[address] [place] [address] Eosinophils/100 WBC (Bld) 1.0 % Normal 0.0 - 7.0 [facility] Comment on above: Performed By: #### 2 37591 #### [facility],[address] [place], [place] [id number] Erythrocyte distribution width (RBC) [Ratio] 14.7 % Normal 12.0 - 15.6 [facility] Comment on above: Performed By: #### 2 91766 #### [facility],[address] [place], [place] [id number] Hematocrit (Bld) [Volume fraction] 41.9 % Normal 34.0 - 46.0 [facility] Comment on above: Performed By: #### 2 69064 #### [facility],[address] [place] [address] Hemoglobin (Bld) [Mass/Vol] 14.2 g/dL Normal 12.0 - 16.0 [facility] Comment on above: Performed By: #### 2 38702 #### [facility],[address] [place] [address] Lymph # 1.40 x10EE3/UL Normal 0.80 - 2.80 [facility] Comment on above: Performed By: #### 2 34103 #### [facility],[address] [place], [place] [id number] Lymphocytes/100 WBC (Bld) 8.0 % Low 20.0 - 45.0 [facility] Comment on above: Performed By: #### 2 24371 #### [facility],[address] [place], [place] [id number] MANUAL DIFF N/A Normal [facility] Comment on above: Performed By: #### 2 21500 #### [facility],[address] [place] [address] MCH (RBC) [Entitic mass] 29 pg Normal 27 - 33 [facility] Comment on above: Performed By: #### 2 32401 #### [facility],[address] [place] [address] MCHC 34 X10 3 Normal 32 - 36 [facility] Comment on above: Performed By: #### 2 22612 #### [facility],[address] [place] [address]76 MCV (RBC) [Entitic vol] 87 fL Normal 80 - 99 [facility] Comment on above: Performed By: #### 2 41476 #### [facility],[address] [place] [address] [place] # 1.28 x10EE3/UL High 0.20 - 1.00 [facility] Comment on above: Performed By: #### 2 06741 #### [facility],[address] [place] [address] MONOS % 7.3 % Normal 0.0 - 10.0 [facility] Comment on above: Performed By: #### 2 05415 #### [facility],[address] [place] [address] Morphology Hardy (Bld) [Interp] N/A Normal [facility] Comment on above: Performed By: #### 2 12632 #### [facility],[address] [place] [address] Neut # 14.75 x10EE3/UL High 1.50 - 7.10 [facility] Comment on above: Performed By: #### 2 09678 #### [facility],[address] [place] [address] Neutrophils/100 WBC (Bld) 83.7 % High 46.0 - 76.0 [facility] Comment on above: Performed By: #### 2 70425 #### [facility],[address] [place] [address] PLATELET 278 x10EE3/UL Normal 150 - 450 [facility] Comment on above: Performed By: #### 2 65128 #### [facility],[address] [place] [address] Platelet mean volume (Bld) [Entitic vol] 8.3 fL Normal 6.6 - 10.5 [facility] Comment on above: Result Comment: AUTO MATED DIFFERENTIAL Performed By: #### 2 81653 #### [facility],[address] [place] [address] 12972 RBC 4.83 x 10EE6/UL Normal 4.10 - 5.30 [facility] Comment on above: Performed By: #### 2 90654 #### [facility],[address] [place] [address] WBC 17.6 x 10EE3/UL High 4.5 - 10.8 [facility] Comment on above: Performed By: #### 2 11427 #### [facility],[address] [place] [address]373 CHEST 1 VIEWon 12-07-2024 CHEST 1 VIEW [place] [address] Patient: CARMEN HARVEY Phone#: : [phone] Age: 79 Gender: F Pt. Type: ER Account: [id number] Location: [facility] Ordering: ROM GOMEZ Exam Date: 12/07/2024/23:03 Family Phys: ANN MARIE PHELPSBRIDGETTE Charge Code: 133373 Physician: Patrick Order #: [id number] Dose#: PROCEDURE: X-RAY CHEST 1 VIEW COMPARISON: [facility], , CHEST 1 VIEW, 06/02/2020, 15:20. INDICATIONS: Chest pressure. FINDINGS: LUNGS: Normal. No significant pulmonary parenchymal abnormalities. VASCULATURE: Normal. Unremarkable pulmonary vasculature. CARDIAC: Normal. No cardiac silhouette abnormality or cardiomegaly. MEDIASTINUM: Normal. No visible mass or adenopathy. PLEURA: Normal. No effusion or pleural thickening. BONES: A left shoulder prosthesis is present. No fracture or visible bony lesion. OTHER: Negative. CONCLUSION: No acute disease. Dictated by: Kaykay Mederos MD on 12/08/2024 at 22:19 Approved by: Kaykay Mederos MD on 12/08/2024 at 22:21 Normal [facility] CMP with eGFRon 12-07-2024 AGE 79 years Normal [facility] Comment on above: Performed By: #### 2 70610 #### [facility],[address] [place] [address] Albumin [Mass/Vol] 3.7 g/dL Normal 3.4 - 5.0 [facility] Comment on above: Performed By: #### 2 27604 #### [facility],[address] [place] [address] 80452 Albumin/Globulin [Mass ratio] 1.0 {ratio} Normal 0.9 - 1.6 [facility] Comment on above: Performed By: #### 2 43555 #### [facility],[address] [place] [address] 80982 ALK PHOS 113 U/L Normal 46 - 116 [facility] Comment on above: Performed By: #### 2 69810 #### [facility],[address] [place] [address] 43067 ALT [Catalytic activity/Vol] 31 U/L Normal 16 - 63 [facility] Comment on above: Performed By: #### 2 23900 #### [facility],[address] [place] [address] 90721 Anion gap [Moles/Vol] 15 mmol/L Normal 10 - 20 [facility] Comment on above: Performed By: #### 2 60817 #### [facility],[address] [place] [address] 32743 AST [Catalytic activity/Vol] 30 U/L Normal 13 - 39 [facility] Comment on above: Performed By: #### 2 59405 #### [facility],[address] [place] [address] 21013 B/C RATIO 24 ratio Normal 0 - 30 [facility] Comment on above: Performed By: #### 2 35949 #### [facility],[address] [place] [address] 13699 Bilirubin [Mass/Vol] 1.9 mg/dL High 0.2 - 1.0 [facility] Comment on above: Performed By: #### 2 88347 #### [facility],[address] [place] [address] 52985 Calcium [Mass/Vol] 9.6 mg/dL Normal 8.5 - 10.1 [facility] Comment on above: Performed By: #### 2 38259 #### [facility],[address] [place] [address] 10135 Chloride [Moles/Vol] 105 mmol/L Normal 98 - 107 [facility] Comment on above: Performed By: #### 2 84257 #### [facility],[address] [place], [place] [address] CMP with eGFR Normal [facility] Comment on above: Result Comment: COMP REHENSIVE METABOLIC PANEL Performed By: #### 2 76476 #### [facility],[address] [place] [address] 43860 CO2 [Moles/Vol] 25.8 mmol/L Normal 21.0 - 32.0 [facility] Comment on above: Performed By: #### 2 09778 #### [facility],[address] [place] [address] 70455 Creatinine [Mass/Vol] 1.16 mg/dL High 0.55 - 1.02 [facility] Comment on above: Performed By: #### 2 71471 #### [facility],[address] [place] [address] 78062 eGFR 45 ML/MINUTE Low 60 - 999 [facility] Comment on above: Performed By: #### 2 66589 #### [facility],[address] [place] [address] 45890 eGFR(AA) 55 ML/MINUTE Low 60 - 999 [facility] Comment on above: Result Comment: ACCO RDING TO THE NATIONAL KIDNEY DISEASE EDUCATION PROGRAM(NKDE), A NORMAL eGFR IS A VALUE GREATER THAN OR EQUAL TO 60 ML/MIN/1.73 SQ METERS. CHRONIC KIDNEY DISEASE: <60mL/MIN/1.73 SQ METERS KIDNEY FAILURE: <15mL/MIN/1.73 SQ METERS THIS TEST SHOULD ONLY BE USED FOR PATIENTS 18 YEARS OF AGE AND OLDER. Performed By: #### 2 54657 #### [facility],[address] [place] [address] 25819 Globulin (S) [Mass/Vol] 3.7 g/dL Normal 1.5 - 3.8 [facility] Comment on above: Performed By: #### 2 73794 #### [facility],[address] [place] [address] 76453 Glucose [Mass/Vol] 122 mg/dL High 74 - 106 [facility] Comment on above: Performed By: #### 2 95111 #### [facility],[address] [place] [address] 91664 Potassium [Moles/Vol] 3.1 mmol/L Low 3.5 - 5.1 [facility] Comment on above: Performed By: #### 2 50092 #### [facility],[address] [place] [address] 75599 Protein [Mass/Vol] 7.4 g/dL Normal 6.4 - 8.2 [facility] Comment on above: Performed By: #### 2 20950 #### [facility],[address] [place] [address] 95819 Sodium [Moles/Vol] 143 mmol/L Normal 136 - 145 [facility] Comment on above: Performed By: #### 2 83831 #### [facility],[address] [place] [address] 74492 Urea nitrogen [Mass/Vol] 28 mg/dL High 7 - 18 [facility] Comment on above: Performed By: #### 2 05153 #### [facility],[address] [place] [address] 72551 CORONAVIRUS (SARS) ANTIGEN T ESTon 12-07-2024 EXTERNAL QC DONE? YES Normal [facility] Comment on above: Performed By: #### 2 90291 #### [facility],[address] [place] [address] 15448 INTERNAL CONTROL PASS Normal [facility] Comment on above: Performed By: #### 2 61042 #### [facility],[address] [place] [address] 43471 SARS ANTIGEN Negative Normal NORMAL: NEGATIVE [facility] Comment on above: Performed By: #### 2 87086 #### [facility],[address] [place] [address] 06653 SEND TO ? NO Normal [facility] Comment on above: Result Comment: SARS -CoV-2 THIS TEST IS BEING USED UNDER THE FDA EUA PROCEDURE. THIS ASSAY HAS BEEN VALIDATED AT [facility] FOR USE WITH NASAL AND NASOPHARYNGEAL SWAB SPECIMENS. INTERPRETIVE DATA TEST RESULTS SHOULD ALWAYS BE CONSIDERED IN THE CONTEXT OF CLINICAL OBSERVATIONS AND EPIDEMIOLOGICAL DATA IN MAKING FINAL DIAGNOSIS AND PATIENT MANAGEMENT DECISIONS. PATIENT MANAGEMENT SHOULD FOLLOW CURRENT CDC GUIDELINES. THE CANDY SARS ANTIGEN LAYLA DOES NOT DIFFERENTIATE BETWEEN SARS-CoV & SARS-CoV-2. A POSITIVE TEST RESULT INDICATES THE PRESENCE OF SARS-CoV-2 NUCLEOCAPSID PROTEIN ANTIGEN, AND THE PATIENT IS INFECTED WITH THE VIRUS AND PRESUMED TO BE CONTAGIOUS. A NEGATIVE TEST RESULT FOR THIS TEST MEANS THAT SARS-CoV-2 NUCLEOCAPSID PROTEIN ANTIGEN WAS NOT PRESENT IN THE SPECIMEN ABOVE THE LIMIT OF DETECTION. HOWEVER, A NEGATIVE RESULT DOES NOT RULE OUT COVID-19 AND SHOULD NOT BE USED THE SOLE BASIS FOR TREATMENT OR PATIENT MANAGEMENT DECISIONS. A NEGATIVE RESULT DOES NOT EXCLUDE THE POSSIBILITY OF COVID-19. NEGATIVE RESULTS, FROM PATIENTS WITH SYMPTOM ONSET BEYOND FIVE DAYS, SHOULD BE TREATED PRESUMPTIVE AND CONFIRMATION WITH A MOLECULAR ASSAY, IF NECESSARY, FOR PATIENT MANAGEMENT, MAY BE PERFORMED. WHEN DIAGNOSTIC TESTING IS NEGATIVE, THE POSSIBLILTY OF A FALSE NEGATIVE RESULT SHOULD BE CONSIDERED IN THE CONTEXT OF A PATIENT'S RECENT EXPOSURES AND THE PRESENCE OF CLINICAL SIGNS AND SYMPTOMS CONSISTENT WITH COVID-19. THE POSSIBILITY OF A FALSE NEGATIVE RESULT SHOULD ESPECIALLY BE CONSIDERED IF THE PATIENT'S RECENT EXPOSURES OR CLINICAL PRESENTATION INDICATE THAT COVID-19 IS LIKELY, AND DIAGNOSTIC TESTS FOR OTHER CAUSES OF ILLNESS (e.g., OTHER RESPIRATORY ILLNESS) ARE NEGATIVE. IF COVID-19 IS STILL SUSPECTED BASED ON EXPOSURE HISTORY TOGETHER WITH OTHER CLINICAL FINDINGS, RE-TESTING SHOULD BE CONSIDERED BY HEALTHCARE PROVIDERS IN CONSULTATION WITH PUBLIC HEALTH AUTHORITIES. Performed By: #### 2 48587 #### [facility],[address] [place] [address] 94311 D-DIMER, QUANTITATIVEon - D-DIMER QUANT <200 Normal 0 - 230 [facility] Comment on above: Performed By: #### 2 33229 #### [facility],[address] [place] [address] 83103 D-DIMER, QUANTITATIVE Normal [facility] Comment on above: Result Comment: LUIZ T D-DIMER Performed By: #### 2 95640 #### [address] [address] INFLUENZA VIRUS RAPID A/Bon 12-07-2024 INFLUENZA VIRUS RAPID A/B INFLUENZA A NEGATIVE INFLUENZA B NEGATIVE INTERNAL NEG QC PASS INTERNAL POS QC PASS EXTERNAL QC DONE? YES SEND TO IC? NO A NEGATIVE TEST RESULT DOES NOT EXCLUDE INFECTION WITH INFLUENZA A OR B. THEREFORE, THE RESULTS OBTAINED FROM THIS FLU TEST SHOULD BE USED IN CONJUCTION WITH CLINICAL FINDINGS TO MAKE AN ACCURATE DIAGNOSIS. A POSITIVE RESULT DOES NOT RULE OUT CO-INFECTIONS WITH OTHER PATHOGENS OR IDENTIFY ANY SPECIFIC INFLUENZA A VIRUS SUBTYPE.CO-INFECTION WITH INFLUENZA A AND B IS RARE. IT IS RECOMMENDED THAT DUAL POSITIVE RESULTS BE CONFIRMED BY VIRAL CULTURE OR AN FDA-CLEARED INFLUENZA A AND B MOLECULAR ASSAY. INDIVIDUALS WHO HAVE RECEIVED NASALLY ADMINISTERED INFLUENZA A VACCINE MAY TEST POSITIVE IN COMMERCIALLY AVAILABLE INFLUENZA RAPID DIAGNOSTIC TESTS FOR UP TO THREE DAYS. RESULT CRITICAL? NO Normal [facility] Comment on above: Performed By: #### 2 56938 #### [facility],[address] [place] [address] 63355 LIPASEon 12-07-2024 Lipase [Catalytic activity/Vol] 29.0 U/L Normal 15.0 - 78.0 [facility] Comment on above: Result Comment: *PLE ASE NOTE THAT RANGES FOR LIPASE HAVE CHANGED OF 08/18/23 DUE TO AN ASSAY UPDATE BY THE SEBD TEACHER.THE NEW ASSAY RANGE IS 6-250 U/L, WITH A REFERENCE RANGE OF 16-77 U/L. Performed By: #### 2 55367 #### [facility],[address] [place] [address] NT-proBNPon 12-07-2024 Natriuretic peptide B (Bld) [Mass/Vol] 59 pg/mL Normal 0 - 450 [facility] Comment on above: Performed By: #### 2 30436 #### [facility],[address] [place] [address] TROPONINon 12-07-2024 HS TROPONIN <4.0 Normal 0.0 - 51.4 [facility] Comment on above: Performed By: #### 2 65014 #### [facility],[address] [place], [place] [address] EVE SCREEN, SERUM [CCL]on MPA Result No M protein is identified. Normal No M protein is identifie [facility] Comment on above: Performed By: #### 2 34989 #### [facility],[address] [place] [address] Staff Review Reviewed by Minerva hernandez M.D. Normal [facility] Comment on above: Result Comment: [facility] [address] [place] [address] Drew Nj III, M.D. [id number] Performed By: #### 2 45109 #### [facility],[address] [place] [address] 17240 PROTEIN ELECTROPHORESIS , SE RUM [CCL]on 08-26-2024 Albumin [Mass/Vol] 3.82 g/dL Normal 3.43-5.41 [facility] Comment on above: Performed By: #### 2 97459 #### [facility],[address] [place] [address] 70754 Alpha 1 Globulin 0.22 g/dL Normal 0.18-0.43 [facility] Comment on above: Performed By: #### 2 05819 #### [facility],[address] [place] [address] 44368 Alpha 2 Globulin 0.82 g/dL Normal 0.42-0.98 [facility] Comment on above: Performed By: #### 2 87399 #### [facility],[address] [place] [address] 28616 Beta Globulin 0.91 g/dL Normal 0.61-1.17 [facility] Comment on above: Performed By: #### 2 77748 #### [facility],[address] [place] [address] 08948 Gamma Globulin 0.72 g/dL Normal 0.53-1.51 [facility] Comment on above: Performed By: #### 2 77275 #### [facility],[address] [place], [place] [address] Interpretation No definitive M prot ein is identified on protein electrophoresis. Normal No definitive M protein i [facility] Comment on above: Performed By: #### 2 20982 #### [facility],[address] [place] [address] 63130 M Protein Location See Below Normal [facility] Comment on above: Result Comment: Not Applicable. Performed By: #### 2 25102 #### [facility],[address] [place] [address] 49182 M-Protein Concentration 0.00 g/dL Normal <=0.00 [facility] Comment on above: Performed By: #### 2 74848 #### [facility],[address] [place] [address] 81792 Protein [Mass/Vol] 6.5 g/dL Normal 6.3-8.0 [facility] Comment on above: Performed By: #### 2 93572 #### [facility],[address] [place] [address] 12331 SPE Staff Review Reviewed by Minerva hernandez M.D. Normal [facility] Comment on above: Result Comment: Seru m electrophoresis test was performed using the EveryMove V8 NEXUS capillary electrophoresis method. Results obtained with different assay methods or kits cannot be used interchangeably. [facility] [address] [place] [address] Drew Nj III, M.D. [id number] Performed By: #### 2 64385 #### [facility],[address] [place] [address] 33849 PROTEIN ELECTROPHORESIS UR W / EVE [CCL]on 08-26-2024 PROTEIN ELECTROPHORESIS UR W/ EVE [CCL] Normal [facility] Comment on above: Result Comment: _PRO T ELEC, URINE W/ EVE [CCL]_ SEE SCANNED REPORT Performed By: #### 2 23081 #### [facility],[address] [place] [address] 83259 PTH, INTACT [CCL]on 08-23-19 25 PTH, Intact 40 pg/mL Normal 15-65 [facility] Comment on above: Result Comment: [facility] [address] [place] [address] Drew Nj III, M.D. [id number] Performed By: #### 2 42300 #### [address] [address] CBC + DIFFon 08-22-2024 Baso # 0.02 x10EE3/UL Normal 0.00 - 0.10 [facility] Comment on above: Performed By: #### 2 95169 #### [facility],[address] [place] [address] 05718 Basophils/100 WBC (Bld) 0.3 % Normal 0.0 - 2.0 [facility] Comment on above: Performed By: #### 2 86816 #### [facility],[address] [place] [address] 60896 CBC + DIFF Normal [facility] Comment on above: Result Comment: CBC- COMPLETE BLOOD COUNT Performed By: #### 2 94765 #### [facility],[address] [place] [address] 02483 EO # 0.20 x10EE3/UL Normal 0.00 - 0.50 [facility] Comment on above: Performed By: #### 2 05599 #### [facility],[address] [place] [address] 24519 Eosinophils/100 WBC (Bld) 2.6 % Normal 0.0 - 7.0 [facility] Comment on above: Performed By: #### 2 60358 #### [facility],[address] [place] [address] Erythrocyte distribution width (RBC) [Ratio] 13.3 % Normal 12.0 - 15.6 [facility] Comment on above: Performed By: #### 2 74740 #### [facility],[address] [place] [address] Hematocrit (Bld) [Volume fraction] 35.8 % Normal 34.0 - 46.0 [facility] Comment on above: Performed By: #### 2 53249 #### [facility],[address] [place] [address] Hemoglobin (Bld) [Mass/Vol] 12.1 g/dL Normal 12.0 - 16.0 [facility] Comment on above: Performed By: #### 2 47815 #### [facility],[address] [place] [address] 71392 Lymph # 1.31 x10EE3/UL Normal 0.80 - 2.80 [facility] Comment on above: Performed By: #### 2 28461 #### [facility],[address] [place], [place] [address] Lymphocytes/100 WBC (Bld) 17.2 % Low 20.0 - 45.0 [facility] Comment on above: Performed By: #### 2 12993 #### [facility],[address] [place], [place] [address] MANUAL DIFF N/A Normal [facility] Comment on above: Performed By: #### 2 33394 #### [facility],[address] [place], [place] [address] MCH (RBC) [Entitic mass] 31 pg Normal 27 - 33 [facility] Comment on above: Performed By: #### 2 73358 #### [facility],[address] [place] [address] MCHC 34 X10 3 Normal 32 - 36 [facility] Comment on above: Performed By: #### 2 96496 #### [facility],[address] [place] [address] 48991 MCV (RBC) [Entitic vol] 91 fL Normal 80 - 99 [facility] Comment on above: Performed By: #### 2 27495 #### [facility],[address] [place] [address] [place] # 0.61 x10EE3/UL Normal 0.20 - 1.00 [facility] Comment on above: Performed By: #### 2 54220 #### [facility],[address] [place] [address] 85420 MONOS % 8.0 % Normal 0.0 - 10.0 [facility] Comment on above: Performed By: #### 2 06124 #### [facility],[address] [place] [address] 23550 Morphology Hardy (Bld) [Interp] N/A Normal [facility] Comment on above: Performed By: #### 2 35580 #### [facility],[address] [place] [address] 05078 Neut # 5.47 x10EE3/UL Normal 1.50 - 7.10 [facility] Comment on above: Performed By: #### 2 40941 #### [facility],[address] [place] [address] 31433 Neutrophils/100 WBC (Bld) 71.9 % Normal 46.0 - 76.0 [facility] Comment on above: Performed By: #### 2 70113 #### [facility],[address] [place] [address] 20005 PLATELET 247 x10EE3/UL Normal 150 - 450 [facility] Comment on above: Performed By: #### 2 44130 #### [facility],[address] [place] [address] 63268 Platelet mean volume (Bld) [Entitic vol] 8.7 fL Normal 6.6 - 10.5 [facility] Comment on above: Result Comment: AUTO MATED DIFFERENTIAL Performed By: #### 2 71706 #### [facility],[address] [place] [address] RBC 3.94 x 10EE6/UL Low 4.10 - 5.30 [facility] Comment on above: Performed By: #### 2 52697 #### [facility],[address] [place], [place] [address] WBC 7.6 x 10EE3/UL Normal 4.5 - 10.8 [facility] Comment on above: Performed By: #### 2 78610 #### [facility],[address] [place] [address] CMP with eGFRon 08-22-2024 AGE 78 years Normal [facility] Comment on above: Performed By: #### 2 76270 #### [facility],[address] [place], [place] [address] Albumin [Mass/Vol] 3.5 g/dL Normal 3.4 - 5.0 [facility] Comment on above: Performed By: #### 2 63539 #### [facility],[address] [place], [place] [address] Albumin/Globulin [Mass ratio] 1.0 {ratio} Normal 0.9 - 1.6 [facility] Comment on above: Performed By: #### 2 44620 #### [facility],[address] [place] [address] ALK PHOS 109 U/L Normal 46 - 116 [facility] Comment on above: Performed By: #### 2 89106 #### [facility],[address] [place] [address] 88627 ALT [Catalytic activity/Vol] 19 U/L Normal 16 - 63 [facility] Comment on above: Performed By: #### 2 54609 #### [facility],[address] [place] [address] 57813 Anion gap [Moles/Vol] 14 mmol/L Normal 10 - 20 [facility] Comment on above: Performed By: #### 2 01197 #### [facility],[address] [place] [address] 85515 AST [Catalytic activity/Vol] 21 U/L Normal 13 - 39 [facility] Comment on above: Performed By: #### 2 07383 #### [facility],[address] [place] [address] 09721 B/C RATIO 22 ratio Normal 0 - 30 [facility] Comment on above: Performed By: #### 2 72617 #### [facility],[address] [place] [address] 73121 Bilirubin [Mass/Vol] 2.5 mg/dL High 0.2 - 1.0 [facility] Comment on above: Performed By: #### 2 73705 #### [facility],[address] [place] [address] 67502 Calcium [Mass/Vol] 9.3 mg/dL Normal 8.5 - 10.1 [facility] Comment on above: Performed By: #### 2 17018 #### [facility],[address] [place] [address] 29606 Chloride [Moles/Vol] 101 mmol/L Normal 98 - 107 [facility] Comment on above: Performed By: #### 2 67169 #### [facility],[address] [place] [address] 87078 CMP with eGFR Normal [facility] Comment on above: Result Comment: COMP REHENSIVE METABOLIC PANEL Performed By: #### 2 10600 #### [place] [address] CO2 [Moles/Vol] 24.7 mmol/L Normal 21.0 - 32.0 [facility] Comment on above: Performed By: #### 2 56344 #### [facility],[address] [place] [address] Creatinine [Mass/Vol] 1.11 mg/dL High 0.55 - 1.02 [facility] Comment on above: Performed By: #### 2 37605 #### [facility],[address] [place] [address] eGFR 48 ML/MINUTE Low 60 - 999 [facility] Comment on above: Performed By: #### 2 93577 #### [place] [address] eGFR(AA) 58 ML/MINUTE Low 60 - 999 [facility] Comment on above: Result Comment: ACCO RDING TO THE NATIONAL KIDNEY DISEASE EDUCATION PROGRAM(NKDE), A NORMAL eGFR IS A VALUE GREATER THAN OR EQUAL TO 60 ML/MIN/1.73 SQ METERS. CHRONIC KIDNEY DISEASE: <60mL/MIN/1.73 SQ METERS KIDNEY FAILURE: <15mL/MIN/1.73 SQ METERS THIS TEST SHOULD ONLY BE USED FOR PATIENTS 18 YEARS OF AGE AND OLDER. Performed By: #### 2 90890 #### [facility],[address] [place] [address] Globulin (S) [Mass/Vol] 3.4 g/dL Normal 1.5 - 3.8 [facility] Comment on above: Performed By: #### 2 04518 #### [facility],[address] [place] [address] Glucose [Mass/Vol] 179 mg/dL High 74 - 106 [facility] Comment on above: Performed By: #### 2 42628 #### [place] [address] Potassium [Moles/Vol] 3.9 mmol/L Normal 3.5 - 5.1 [facility] Comment on above: Performed By: #### 2 33960 #### [facility],[address] [place] [address] 77482 Protein [Mass/Vol] 6.9 g/dL Normal 6.4 - 8.2 [facility] Comment on above: Performed By: #### 2 43450 #### [facility],[address] [place] [address] 62359 Sodium [Moles/Vol] 136 mmol/L Normal 136 - 145 [facility] Comment on above: Performed By: #### 2 67704 #### [facility],[address] [place] [address] Urea nitrogen [Mass/Vol] 24 mg/dL High 7 - 18 [facility] Comment on above: Performed By: #### 2 24449 #### [facility],[address] [place], [place] [address] HEMOGLOBIN A1C (POM)on 08-22 Glucose [Mass/Vol] 137.0 mg/dL High 0.0 - 0.0 [facility] Comment on above: Result Comment: BLDo HEMOGLOBIN A1C REFERENCE RANGESBLDo Suggested Diagnosis HbA1c(%) HbA1C (mmol/mol Diabetic >/=6.5 >/=48 Prediabetes 5.7 - 6.4 39 - 47 Normal <5.7 <39 Performed By: #### 2 09366 #### [facility],[address] [place] [address] 16930 HbA1c (Bld) [Mass fraction] 6.4 % Normal 0.0 - 6.5 [facility] Comment on above: Performed By: #### 2 32287 #### [facility],[address] [place] [address] 17346 IMMUNOFIXATION SCREEN, SERUM on 08-22-2024 MPA RESULT No M protein is identified. Normal No M protein is identified. [facility] Comment on above: Order Comment: Speci men Type: BLOOD SPECIMEN Ordering Facility: [facility] Address: [address] [place] [address] Performed By: #### I FESC #### [facility] CLIA [id number] [address] [place] [address] OF [facility] STAFF REVIEW (MPA) Reviewed by Minerva hernandez M.D. Normal [facility] Comment on above: Order Comment: Speci men Type: BLOOD SPECIMEN Ordering Facility: [facility] Address: [address] [place] [address] Performed By: #### I FESC #### [facility] CLIA [id number] [address] [place] [address] IRON AND TIBCon 08-22-2024 %SATURATION 15 % Normal [facility] Comment on above: Performed By: #### 2 31172 #### [facility],[address] [place] [address] 52300 Iron [Mass/Vol] 58 ug/dL Normal 50 - 170 [facility] Comment on above: Performed By: #### 2 40666 #### [facility],[address] [place] [address] 96406 TIBC 377 ug/dl Normal 250 - 450 [facility] Comment on above: Performed By: #### 2 20932 #### [facility],[address] [place] [address] 48851 UIBC 319 ug/dL Normal 155 - 355 [facility] Comment on above: Performed By: #### 2 02086 #### [facility],[address] [place] [address] 89073 LIPID PROFILEon 08-22-2024 Cholesterol [Mass/Vol] 107 mg/dL Normal 0 - 240 [facility] Comment on above: Performed By: #### 2 96015 #### [facility],[address] [place] [address] 24789 Cholesterol in HDL [Mass/Vol] 49 mg/dL Normal 40 - 60 [facility] Comment on above: Performed By: #### 2 52375 #### [facility],[address] [place] [address] 23354 Cholesterol in LDL [Mass/Vol] 25 mg/dL Normal 0 - 129 [facility] Comment on above: Performed By: #### 2 [id number] #### [facility],[address] [place] [address]146 Cholesterol.total/Ch olesterol in HDL [Mass ratio] 2.2 {ratio} Normal 0.0 - 5.0 [facility] Comment on above: Performed By: #### 2 [id number] #### [facility],[address] [place] [address]41 Lipid 1996 panel Normal [facility] Comment on above: Result Comment: LIPI D PROFILE Performed By: #### 2 [id number] #### [facility],[address] [place] [address] Triglyceride [Mass/Vol] 164 mg/dL High 0 - 150 [facility] Comment on above: Performed By: #### 2 [id number] #### [facility],[address] [place] [address] MAGNESIUMon 08-22-2024 Magnesium [Mass/Vol] 1.9 mg/dL Normal 1.8 - 2.4 [facility] Comment on above: Performed By: #### 2 53566 #### [facility],[address] [place] [address] PROTEIN ELECTROPHORESIS SERU M (P)on 08-22-2024 Albumin [Mass/Vol] 3.82 g/dL Normal 3.43-5.41 [facility] Comment on above: Order Comment: Speci men Type: BLOOD SPECIMEN Ordering Facility: [facility] Address: [address] [place] [address] Performed By: #### L [id number] #### [facility] CLIA [id number] [address] [place] [address] [place] Alpha 1 globulin Elph [Mass/Vol] 0.22 g/dL Normal 0.18-0.43 [facility] Comment on above: Order Comment: Speci men Type: BLOOD SPECIMEN Ordering Facility: [facility] Address: [address] [place] [address] Performed By: #### L [id number] #### [facility] CLIA [id number] [address] [place] [address] [place] Alpha 2 globulin Elph [Mass/Vol] 0.82 g/dL Normal 0.42-0.98 [facility] Comment on above: Order Comment: Speci men Type: BLOOD SPECIMEN Ordering Facility: [facility] Address: [address] [place] [address] Performed By: #### L [id number] #### [facility] CLIA [id number] [address] [place] [address] [place] Beta globulin Elph [Mass/Vol] 0.91 g/dL Normal 0.61-1.17 [facility] Comment on above: Order Comment: Speci men Type: BLOOD SPECIMEN Ordering Facility: [facility] Address: [address] [place] [address] Performed By: #### L [id number] #### [facility] CLIA [id number] [address] [place] [address] [place] Gamma globulin Elph [Mass/Vol] 0.72 g/dL Normal 0.53-1.51 [facility] Comment on above: Order Comment: Speci men Type: BLOOD SPECIMEN Ordering Facility: [facility] Address: [address] [place] [address] Performed By: #### L [id number] #### [facility] CLIA [id number] [address] [place] [id number] [place] M-PROTEIN LOCATION Normal [facility] Comment on above: Order Comment: Speci men Type: BLOOD SPECIMEN Ordering Facility: [facility] Address: [address] [place] [address] Result Comment: Not Applicable. Performed By: #### L [id number] #### [facility] CLIA [id number] [address] [place] [address] [place] Protein Fractions [Interp] No definitive M protein is identified on protein electrophoresis. Normal No definitive M protein is identified on protein electrophore sis. [facility] Comment on above: Order Comment: Speci men Type: BLOOD SPECIMEN Ordering Facility: [facility] Address: [address] [place] [address] Performed By: #### L [id number] #### [facility] CLIA [id number] [address] [place] [address] [place] Protein.monoclonal Elph [Mass/Vol] 0.00 g/dL Normal <=0.00 [facility] Comment on above: Order Comment: Speci men Type: BLOOD SPECIMEN Ordering Facility: [facility] Address: [address] [place] [address] Performed By: #### L [id number] #### [facility] CLIA [id number] [address] [place] [address] [place] SPE STAFF REVIEW Reviewed by Minerva hernandez M.D. Normal [facility] Comment on above: Order Comment: Speci men Type: BLOOD SPECIMEN Ordering Facility: [facility] Address: [address] [place] [address] Performed By: #### L [id number] #### [facility] CLIA [id number] [address] [place] [address] [place] PTH-[facility] Parathyrin.intact [Mass/Vol] 40 pg/mL Normal 15-65 [facility] Comment on above: Order Comment: Speci men Type: BLOOD SPECIMEN Ordering Facility: [facility] Address: [address] [place] [address] Performed By: #### 2 731-8 #### [facility] CLIA [id number] [address] [address] [place] Prot SerPl-mCncon 08-22-2024 Protein [Mass/Vol] 6.5 g/dL Normal 6.3-8.0 [facility] Comment on above: Order Comment: Speci men Type: BLOOD SPECIMEN Ordering Facility: [facility] Address: [address] [place] [address] Performed By: #### 2 885-2 #### [facility] CLIA [id number] [address] [place] [address] [place] Prot Ur-mCncon 08-22-2024 Protein (U) [Mass/Vol] 6 mg/dL Normal 0-20 [facility] Comment on above: Order Comment: Speci men Type: URINE SPECIMEN Ordering Facility: [facility] Address: [address] [place] [address] Performed By: #### 2 [id number] #### [facility] CLIA [id number] [address] [place] [address] [place] TSHon 08-22-2024 TSH Qn 2.73 m[IU]/L Normal 0.35 - 3.74 [facility] Comment on above: Performed By: #### 2 [id number] #### [facility],[address] [place] [address] URIC ACIDon 08-22-2024 Urate [Mass/Vol] 4.3 mg/dL Normal 2.6 - 6.0 [facility] Comment on above: Performed By: #### 2 82822 #### [facility],[address] [place] [address] URINE CREATININE AND PROTEIN RATIOon 08-22-2024 CREATININE UR 63.18 mg/dl Normal [facility] Comment on above: Performed By: #### 2 [id number] #### [facility],[address] [place] [address]405 PC RATIO 0.12 mg/dL Normal 0.00 - 10.00 [facility] Comment on above: Performed By: #### 2 [id number] #### [facility],[address] [place] [address] Protein (U) [Mass/Vol] 7.50 mg/dL Normal 0.00 - 10.00 [facility] Comment on above: Performed By: #### 2 [id number] #### [facility],[address] [place] [address] URINE MICROALBUMIN W/CREATIN INE, RANDOMon 08-22-2024 CREATININE UR 63.18 mg/dl Normal [facility] Comment on above: Performed By: #### 2 79851 #### [facility],[address] [place] [address]859 MICROALBUMIN UR 0.2 mg/dL Normal 0.1 - 11.6 [facility] Comment on above: Performed By: #### 2 52815 #### [facility],[address] [place] [address] 98234 UACR 3 mg/g Normal [facility] Comment on above: Performed By: #### 2 [id number] #### [facility],[address] [place] [address] URINE PROTEIN ELECTROPHORESI S WITH EVE (P)on 08-22-2024 Albumin Elph (U) [Mass fraction] 38.48 % Normal [facility] Comment on above: Order Comment: Speci men Type: URINE SPECIMEN Ordering Facility: [facility] Address: [address] [place] [address] Performed By: #### L [id number] #### [facility] CLIA [id number] [address] [place] [address] [place] Alpha 1 globulin Elph (U) [Mass fraction] 6.24 % Normal [facility] Comment on above: Order Comment: Speci men Type: URINE SPECIMEN Ordering Facility: [facility] Address: [address] [place] [address] Performed By: #### L [id number] #### [facility] CLIA [id number] [address] [place] [address] [place] Alpha 2 globulin Elph (U) [Mass fraction] 14.61 % Normal [facility] Comment on above: Order Comment: Speci men Type: URINE SPECIMEN Ordering Facility: [facility] Address: [address] [place] [address] Performed By: #### L [id number] #### [facility] CLIA [id number] [address] [place] [address] [place] Beta globulin Elph (U) [Mass fraction] 26.24 % Normal [facility] Comment on above: Order Comment: Speci men Type: URINE SPECIMEN Ordering Facility: [facility] Address: [address] [place] [address] Performed By: #### L [id number] #### [facility] CLIA [id number] [address] [place] [address] [place] COMMENT (URINE PROT ELECTRO) Monoclonal Protein analysis (immunofixation) is not indicated. Normal [facility] Comment on above: Order Comment: Speci men Type: URINE SPECIMEN Ordering Facility: [facility] Address: [address] [place] [address] Performed By: #### L [id number] #### [facility] CLIA [id number] [address] [place] [address] [place] Gamma globulin Elph (U) [Mass fraction] 14.42 % Normal [facility] Comment on above: Order Comment: Speci men Type: URINE SPECIMEN Ordering Facility: [facility] Address: [address] [place] [address] Performed By: #### L [id number] #### [facility] CLIA [id number] [address] [place] [address] [place] Protein Fractions Elph Hardy (U) [Interp] No definitive M protein is identified on protein electrophoresis. Normal No definitive M protein is identified on protein electrophore sis. [facility] Comment on above: Order Comment: Speci men Type: URINE SPECIMEN Ordering Facility: [facility] Address: [address] [place] [address] Performed By: #### L [id number] #### [facility] CLIA [id number] [address] [place] [id number] [place] STAFF REVIEW (URINE ELECTRO) Reviewed by Minerva Anderson M.D. Normal [facility] Comment on above: Order Comment: Speci men Type: URINE SPECIMEN Ordering Facility: [facility] Address: [address] [place] [address] Performed By: #### L [id number] #### [facility] CLIA [id number] [address] [place] VITAMIN D, 25 HYDROXYon VitD 47.50 ng/mL Normal 30.00 - 100 [facility] Comment on above: Result Comment: 25-O HD3 indicates both endogenous production and supplementation. 25-OHD2 is an indicator of exogenous sources, such as diet or supplementation. Therapy is based on measurement of Total 25-OHD, with levels <20 ng/mL indicative of Vitamin D deficiency, while levels between 20 ng/mL and 30 ng/mL suggest insufficiency. Optimal levels are >=30ng/mL. Vitamin D, 25-OH D3 Not Established Vitamin D, 25-OH D2 Not Established Performed By: #### 2 [id number] #### [facility],[address] [place], [place] [id number] BONE DENSITY STUDYon 024 Bone density scan [place] [address] Patient: CARMEN HARVEY Phone#: : 1945 Age: 78 Gender: F Pt. Type: Out Account: [id number] Location: 2 Ordering: ANN MARIE CASTANO Exam Date: 06/13/2024/11:06 Family Phys: Charge Code: [id number] Physician: Patrick Order #: [id number] Dose#: PROCEDURE: BONE DENSITY STUDY TECHNIQUE: Lumbar vertebral and proximal femoral dual-energy X-ray absorptiometry (DXA) was performed on a central Digistrive device. COMPARISON: [facility], BONE DENSITY STUDY, 01/25/2022, 11:21. SPINE ANALYSIS RESULTS: Average lumbar bone mineral density (BMD) (g/cm2): 1.491 Lumbar T-score (standard deviation relative to young adult mean BMD): 2.6 Lumbar Z-score (standard deviation relative to age matched control group): 3.8 Change since prior spine examination: Increased bone density. Bone mineral density has increased 5.7% since 01/25/2022 SPINE CLASSIFICATION: Normal (T-score > -1.0). HIP ANALYSIS RESULTS: Left femoral bone mineral density (BMD) (g/cm2): 1.030 Right femoral bone mineral density (BMD) (g/cm2): 0.986 Femur T-score (standard deviation relative to young adult mean BMD): 0.0 Femur Z-score (standard deviation relative to age matched control group): 1.5 Change since prior hip examination: Bone loss consistent with physiologic change (%/year). (Bone mineral density has decreased 0.4% since 01/25/2022.) HIP CLASSIFICATION (World Health Organization): Normal (T-score > -1.0). Note: The 2007 International Society for Clinical Densitometry (ISCD) Official Positions state that osteoporosis in cindy-menopausal and post-menopausal women and in men age 50 and older may be diagnosed if the T-score of the lumbar spine, total hip, or femoral neck is -2.5 or less. Hip BMD is reported from the femoral neck or total proximal femur whichever is lowest. In pre-menopausal women and in men younger than age 50, T-scores may be used but Z-scores are preferred. In this patient group, a Z-score of -2.0 or lower is defined as below the expected range for age. FRAX is a computer-based algorithm which uses easily obtained clinical risk factors combined with femoral neck BMD or T-score to estimate an individual 10-year fracture probability. FRAX with BMD predicts fracture risk better than clinical risk factors or BMD alone. It is not appropriate to use FRAX to monitor treatment response. Continued Report - Page 2 of 2 Patient: CARMEN HARVEY Phone#: : 1945 Age: 78 Gender: F MRN: Pt. Type: Out Account: [id number] Location: 052 Ordering: ANN MARIE CASTANO Exam Date: 06/13/2024/11:06 Family Phys: Charge Code: [id number] Physician: Patrick Order #: [id number] Dose#: ADDITIONAL FINDINGS: FRAX: 10 year probability of fracture Major osteoporotic fracture: 24.6% Hip fracture: 5.2% Dictated by: Kathy Wakefield MD on 06/13/2024 at 12:35 Approved by: Kathy Wakefield MD on 06/13/2024 at 12:[address] [facility] KIDNEY / BLADDER 2023 KIDNEY / BLADDER [place] [address] Patient: CARMEN HARVEY Phone#: : 1945 Age: 78 Gender: F MRN: Pt. Type: Out Account: [id number] Location: 2 Ordering: DR. RALEIGH JHAVERI Exam Date: 06/13/2024/10:09 Family Phys: ANN MARIE LATBRIDGETTE Charge Code: [id number] Physician: Patrick Order #: [id number] Dose#: PROCEDURE: KIDNEY/BLADDER ULTRASOUND COMPARISON: [facility], CT, ABDOMEN/PELVIS W CON, 12/25/2020, 15:18. INDICATIONS: Chronic kidney disease TECHNIQUE: Ultrasound examination was performed of the kidneys and bladder. FINDINGS: RIGHT KIDNEY: Renal parenchymal thinning and increased parenchymal echogenicity. No hydronephrosis. Right kidney measures 8.8 by 5.7 x 5.1 cm. LEFT KIDNEY: Increased renal parenchymal echogenicity. Renal parenchymal thinning. No hydronephrosis. Left renal cyst measuring 2.4 x 3.4 cm and contains a thin septation. Left kidney measures 11.5 x 5.4 x 6.6 cm. There are additional left-sided renal cysts, largest measures 4.8 x 4.4 x 4.1 cm. Third cyst measures 3.3 x 2.5 cm. BLADDER: Normal. No visible wall thickening, mass, or calculus. Prevoid bladder volume measures 213 mL. Postvoid bladder volume measures 51 mL OTHER: Negative. CONCLUSION: 1. Medical renal disease 2. Left renal cysts Dictated by: Kathy Wakefield MD on 06/13/2024 at 10:58 Approved by: Kathy Wakefield MD on 06/13/2024 at 11:05 Normal [facility] Glucose Glucometer (BldC) [M ass/Vol]Ordered By: Carlos Maravilla on 06-23-2023 Glucose [Mass/Vol] 186 mg/dL 74-106 [facility] Comment on above: MANAGEMENT OF PATIEN T CARE PER NURSING PROTOCOL Laboratory - CoagulationOrde red By: Carlos Maravilla on 06-23-2023 INR Coag (Bld) [Relative time] 1.1 {INR} [facility] Comment on above: Critical Value > 4.0 Whole blood prothrombin time Ordered By: Carlos Maravilla on 06-23-2023 PT Coag (Bld) [Time] 12.2 s 11.7-14.9 [facility] TYRONE SCREENING W TOMOon 03-02 [facility] 25-Hydroxy D2+D3on 1 25-Hydroxy D Total 29.3 ng/mL Low 30.0-100.0 [facility] Comment on above: Performed By: #### H BA1C, D2D3 #### [facility] Chemistry [address] [place], [place] [address] 25-Hydroxy D2 <4.0 Normal [facility] Comment on above: Performed By: #### H BA1C, D2D3 #### [facility] Chemistry [address] [place], [place] [address] 25-Hydroxy D3 29.3 ng/mL Normal [facility] Comment on above: Performed By: #### H BA1C, D2D3 #### [facility] Chemistry [address] [place], [place] [address] Hemoglobin A1con 05-11-2021 Glucose [Mass/Vol] 120 mg/dL Normal [facility] Comment on above: Performed By: #### Trupti MATTHEWSD3 #### [facility] [address] [place], [place] [address] HbA1c (Bld) [Mass fraction] 5.8 % High 4.3-5.6 [facility] Comment on above: Performed By: #### Trupti MATTHEWSD3 #### [facility] [address] [place] [address] Hemoglobin A1con 12-05-2020 Glucose [Mass/Vol] 134 mg/dL Normal [facility] Comment on above: Performed By: #### H BAStephen #### [facility] Routine Lab [address] [place], [place] [address] HbA1c (Bld) [Mass fraction] 6.3 % High 4.3-5.6 [facility] Comment on above: Performed By: #### H BA1C #### [facility] Lab [address] [place], [place] [address] Hemoglobin A1con 09-09-2020 Glucose [Mass/Vol] 123 mg/dL Normal [facility] Comment on above: Performed By: #### H BA1C #### [facility] Lab [address] [place], [place] [address] HbA1c (Bld) [Mass fraction] 5.9 % High 4.3-5.6 [facility] Comment on above: Performed By: #### H BA1C #### [facility]ine Lab [address] [place] [id number] CBLon 06-08-2020 CBL . MICRO - Microbiology PROCEDURE: Blood Culture (bacterial) [*1] SOURCE: Blood BODY SITE: COLLECTED DATE/TIME: 06/03/2020 14:31 EDT RECEIVED DATE/TIME: 06/03/2020 20:44 EDT START DATE/TIME: 06/03/2020 20:44 EDT FREE TEXT SOURCE: FINAL REPORTS Final Report [] Verified Date/Time/Personnel: 06/08/2020 20:59 EDT Blood Culture: No Growth at 5 days. PRELIMINARY REPORTS Preliminary Report [] Verified Date/Time/Personnel: 06/03/2020 21:59 EDT Culture has been received in lab and is no growth to date. Routine cultures are held for 5 days. Performing Locations *1: This test was performed at: [address], [address] [place] [address] ([place]) Comment on above: Performed By: #### C BC, ADIFF, ANEU, BMP, MG, GFR, TROPHS #### [place] [address] .Auto Diffon 06-05-2020 Ammonia (P) [Mass/Vol] 1.50 10 3/mcL High 0.09-1.40 [facility] ([place]) Comment on above: Performed By: #### C BC, ADIFF, ANEU, BMP, MG, GFR, TROPHS #### [address] [address] Basophils (Bld) [#/Vol] 0.10 10 3/mcL Normal 0.00-0.27 [facility] ([place]) Comment on above: Performed By: #### C BC, ADIFF, ANEU, BMP, MG, GFR, TROPHS #### [address] [address] Basophils/100 WBC (Bld) 0.5 % Normal 0.0-2.5 [facility] ([place]) Comment on above: Performed By: #### C BC, ADIFF, ANEU, BMP, MG, GFR, TROPHS #### [address] [address] Eosinophils (Bld) [#/Vol] 0.10 10 3/mcL Normal 0.00-0.65 [facility] ([place]) Comment on above: Performed By: #### C BC, ADIFF, ANEU, BMP, MG, GFR, TROPHS #### [address] [address] Eosinophils/100 WBC (Bld) 0.5 % Normal 0.0-6.0 [facility] ([place]) Comment on above: Performed By: #### C BC, ADIFF, ANEU, BMP, MG, GFR, TROPHS #### [address] [address] Lymphocytes (Bld) [#/Vol] 1.90 10 3/mcL Normal 0.90-4.32 [facility] ([place]) Comment on above: Performed By: #### C BC, ADIFF, ANEU, BMP, MG, GFR, TROPHS #### [address] [address] Lymphocytes/100 WBC (Bld) 14.4 % Low 20.0-40.0 [facility] ([place]) Comment on above: Performed By: #### C BC, ADIFF, ANEU, BMP, MG, GFR, TROPHS #### [address] [address] Monocytes/100 WBC (Bld) 11.5 % Normal 2.0-13.0 [facility] ([place]) Comment on above: Performed By: #### C BC, ADIFF, ANEU, BMP, MG, GFR, TROPHS #### [address] [address] Neutrophils/100 WBC (Bld) 73.1 % Normal 50.0-75.0 [facility] ([place]) Comment on above: Performed By: #### C BC, ADIFF, ANEU, BMP, MG, GFR, TROPHS #### [address] [address] .GFRon 06-05-2020 GFR Non- 56 ml/min/1.73sqm Normal [facility] ([place]) Comment on above: Result Comment: GFR Population mean for , Non- Americans Ages 20-29 = 116 mL/min/1.73 sq.m. Ages 30-39 = 107 mL/min/1.73 sq.m. Ages 40-49 = 99 mL/min/1.73 sq.m. Ages 50-59 = 93 mL/min/1.73 sq.m. Ages 60-69 = 85 mL/min/1.73 sq.m. Ages 70+ = 75 mL/min/1.73 sq.m. Chronic Kidney Disease: Less than 60 mL/min/1.73 square meters End Stage Renal Disease: Less than 15 mL/min/1.73 square meters Performed By: #### C BC, ADIFF, ANEU, BMP, MG, GFR, TROPHS #### [address] [address] GFR >60 Normal [facility] ([place]) Comment on above: Result Comment: GFR Population mean for , Non- Americans Ages 20-29 = 116 mL/min/1.73 sq.m. Ages 30-39 = 107 mL/min/1.73 sq.m. Ages 40-49 = 99 mL/min/1.73 sq.m. Ages 50-59 = 93 mL/min/1.73 sq.m. Ages 60-69 = 85 mL/min/1.73 sq.m. Ages 70+ = 75 mL/min/1.73 sq.m. Chronic Kidney Disease: Less than 60 mL/min/1.73 square meters End Stage Renal Disease: Less than 15 mL/min/1.73 square meters Performed By: #### C BC, ADIFF, ANEU, BMP, MG, GFR, TROPHS #### [address] [address] .NEUABSon 06-05-2020 Neutrophils (Bld) [#/Vol] 9.80 10 3/mcL High 2.25-8.10 [facility] ([place]) Comment on above: Performed By: #### C BC, ADIFF, ANEU, BMP, MG, GFR, TROPHS #### [address] [address] BMPon 06-05-2020 Calcium [Mass/Vol] 8.4 mg/dL Normal 8.4-10.1 [facility] ([place]) Comment on above: Result Comment: No te - New Reference Range in effect 20 Performed By: #### C BC, ADIFF, ANEU, BMP, MG, GFR, TROPHS #### [address] [address] Chloride [Moles/Vol] 108 mmol/L Normal 98-110 [facility] ([place]) Comment on above: Performed By: #### C BC, ADIFF, ANEU, BMP, MG, GFR, TROPHS #### [address] [address] CO2 [Moles/Vol] 29 mmol/L Normal 22-32 [facility] ([place]) Comment on above: Performed By: #### C BC, ADIFF, ANEU, BMP, MG, GFR, TROPHS #### [address] [address] Creatinine [Mass/Vol] 0.98 mg/dL Normal 0.50-1.20 [facility] ([place]) Comment on above: Performed By: #### C BC, ADIFF, ANEU, BMP, MG, GFR, TROPHS #### [address] [address] Electrolyte Balance 3.0 mEq/L Low 4.0-15.0 [facility] ([place]) Comment on above: Performed By: #### C BC, ADIFF, ANEU, BMP, MG, GFR, TROPHS #### [address] [address] Glucose [Mass/Vol] 141 mg/dL High 82-115 [facility] ([place]) Comment on above: Performed By: #### C BC, ADIFF, ANEU, BMP, MG, GFR, TROPHS #### [address] [address] Potassium [Moles/Vol] 3.5 mmol/L Normal 3.5-5.0 [facility] ([place]) Comment on above: Performed By: #### C BC, ADIFF, ANEU, BMP, MG, GFR, TROPHS #### [address] [address] Sodium [Moles/Vol] 140 mmol/L Normal 136-145 [facility] ([place]) Comment on above: Performed By: #### C BC, ADIFF, ANEU, BMP, MG, GFR, TROPHS #### [address] [address] Urea nitrogen [Mass/Vol] 23.0 mg/dL High 8.0-22.0 [facility] ([place]) Comment on above: Performed By: #### C BC, ADIFF, ANEU, BMP, MG, GFR, TROPHS #### [place] [address] Urea nitrogen/Creatinine [Mass ratio] 23.5 ratio High 10.0-22.0 [facility] ([place]) Comment on above: Performed By: #### C BC, ADIFF, ANEU, BMP, MG, GFR, TROPHS #### [place] [id number] CBCon 06-05-2020 Erythrocyte distribution width (RBC) [Ratio] 14.4 % Normal 11.5-15.5 [facility] ([place]) Comment on above: Performed By: #### C BC, ADIFF, ANEU, BMP, MG, GFR, TROPHS #### [place] [id number] Hematocrit (Bld) [Volume fraction] 33.9 % Low 34.0-46.0 [facility] ([place]) Comment on above: Performed By: #### C BC, ADIFF, ANEU, BMP, MG, GFR, TROPHS #### [place] [id number] Hemoglobin (Bld) [Mass/Vol] 12.1 G/dL Normal 12.0-16.0 [facility] ([place]) Comment on above: Performed By: #### C BC, ADIFF, ANEU, BMP, MG, GFR, TROPHS #### [place] [id number] MCH (RBC) [Entitic mass] 32.8 pg Normal 27.0-33.0 [facility] ([place]) Comment on above: Performed By: #### C BC, ADIFF, ANEU, BMP, MG, GFR, TROPHS #### [place] [id number] MCHC (RBC) [Mass/Vol] 35.6 G/dL Normal 32.0-36.0 [facility] ([place]) Comment on above: Performed By: #### C BC, ADIFF, ANEU, BMP, MG, GFR, TROPHS #### [place] [id number] MCV (RBC) [Entitic vol] 92.1 fL Normal 80.0-99.0 [facility] ([place]) Comment on above: Performed By: #### C BC, ADIFF, ANEU, BMP, MG, GFR, TROPHS #### [place] [address] Platelet mean volume (Bld) [Entitic vol] 8.3 fL Normal 6.6-10.5 [facility] ([place]) Comment on above: Performed By: #### C BC, ADIFF, ANEU, BMP, MG, GFR, TROPHS #### [place] [id number] Platelets (Bld) [#/Vol] 161 10 3/mcL Normal 150-450 [facility] ([place]) Comment on above: Performed By: #### C BC, ADIFF, ANEU, BMP, MG, GFR, TROPHS #### [place] [address] RBC (Bld) [#/Vol] 3.68 10 6/mcL Low 4.10-5.30 [facility] ([place]) Comment on above: Performed By: #### C BC, ADIFF, ANEU, BMP, MG, GFR, TROPHS #### [place] [id number] WBC (Bld) [#/Vol] 13.40 10 3/mcL High 4.50-10.80 [facility] ([place]) Comment on above: Performed By: #### C BC, ADIFF, ANEU, BMP, MG, GFR, TROPHS #### [place] [id number] CURon 06-05-2020 CUR . MICRO - Microbiology PROCEDURE: Urine Culture [*1] SOURCE: Urine, Clean Catch BODY SITE: COLLECTED DATE/TIME: 06/03/2020 08:52 EDT RECEIVED DATE/TIME: 06/03/2020 11:09 EDT START DATE/TIME: 06/03/2020 11:09 EDT FREE TEXT SOURCE: FINAL REPORTS Final Report [] Verified Date/Time/Personnel: 06/05/2020 09:07 EDT 10,000 - 50,000 cfu/ml Multiple bacterial morphotypes present. Probable Contamination. Suggest recollection if clinically indicated. PRELIMINARY REPORTS Preliminary Report [] Verified Date/Time/Personnel: 06/04/2020 10:40 EDT Culture results pending. Performing Locations *1: This test was performed at: [facility], [address] [place] [address], [address] [place] [address] ([place]) Comment on above: Performed By: #### C BC, ADIFF, ANEU, BMP, MG, GFR, TROPHS #### [place] [id number] PROon 06-05-2020 INR Coag (PPP) [Relative time] 1.5 {INR} Normal [facility] ([place]) Comment on above: Order Comment: order ed secondary to warfarin order Result Comment: [employer] [employer] (CHEST, 1992, 102:312S-25S) recommended therapeutic range for oral anticoagulant therapy is: LOW RISK: Prophylaxis of venous thrombosis INR: 2.0-3.0 Treatment of pulmonary embolism 2.0-3.0 Prevention of systemic embolism 2.0-3.0 HIGH RISK: Mechanical prosthetic valves 2.5-3.5 Performed By: #### C BC, ADIFF, ANEU, BMP, MG, GFR, TROPHS #### [place] [address] PT Coag (PPP) [Time] 17.8 s High 9.0-14.6 [facility] ([place]) Comment on above: Order Comment: order ed secondary to warfarin order Result Comment: Effe ctive 03/04/08, Protime results may be affected by some antibiotics (i.e. Ciprofloxacin, Azithromycin, Bactrim) which may potentiate the action of oral anticoagulants, with further increases in Protime/INR. Performed By: #### C BC, ADIFF, ANEU, BMP, MG, GFR, TROPHS #### [place] [id number] .Auto Diffon 06-04-2020 Ammonia (P) [Mass/Vol] 1.60 10 3/mcL High 0.09-1.40 [facility] ([place]) Comment on above: Performed By: #### C BC, ADIFF, ANEU, BMP, MG, GFR, TROPHS #### [address] [address] Basophils (Bld) [#/Vol] 0.10 10 3/mcL Normal 0.00-0.27 [facility] ([place]) Comment on above: Performed By: #### C BC, ADIFF, ANEU, BMP, MG, GFR, TROPHS #### [address] [address] Basophils/100 WBC (Bld) 0.5 % Normal 0.0-2.5 [facility] ([place]) Comment on above: Performed By: #### C BC, ADIFF, ANEU, BMP, MG, GFR, TROPHS #### [address] [address] Eosinophils (Bld) [#/Vol] 0.30 10 3/mcL Normal 0.00-0.65 [facility] ([place]) Comment on above: Performed By: #### C BC, ADIFF, ANEU, BMP, MG, GFR, TROPHS #### [address] [address] Eosinophils/100 WBC (Bld) 2.1 % Normal 0.0-6.0 [facility] ([place]) Comment on above: Performed By: #### C BC, ADIFF, ANEU, BMP, MG, GFR, TROPHS #### [address] [address] Lymphocytes (Bld) [#/Vol] 2.30 10 3/mcL Normal 0.90-4.32 [facility] ([place]) Comment on above: Performed By: #### C BC, ADIFF, ANEU, BMP, MG, GFR, TROPHS #### [address] [address] Lymphocytes/100 WBC (Bld) 19.2 % Low 20.0-40.0 [facility] ([place]) Comment on above: Performed By: #### C BC, ADIFF, ANEU, BMP, MG, GFR, TROPHS #### [address] [address] Monocytes/100 WBC (Bld) 13.1 % High 2.0-13.0 [facility] ([place]) Comment on above: Performed By: #### C BC, ADIFF, ANEU, BMP, MG, GFR, TROPHS #### [address] [address] Neutrophils/100 WBC (Bld) 65.1 % Normal 50.0-75.0 [facility] ([place]) Comment on above: Performed By: #### C BC, ADIFF, ANEU, BMP, MG, GFR, TROPHS #### [address] [address] .GFRon 06-04-2020 GFR 58 ml/min/1.73sqm Normal [facility] ([place]) Comment on above: Result Comment: GFR Population mean for , Non- Americans Ages 20-29 = 116 mL/min/1.73 sq.m. Ages 30-39 = 107 mL/min/1.73 sq.m. Ages 40-49 = 99 mL/min/1.73 sq.m. Ages 50-59 = 93 mL/min/1.73 sq.m. Ages 60-69 = 85 mL/min/1.73 sq.m. Ages 70+ = 75 mL/min/1.73 sq.m. Chronic Kidney Disease: Less than 60 mL/min/1.73 square meters End Stage Renal Disease: Less than 15 mL/min/1.73 square meters Performed By: #### C BC, ADIFF, ANEU, BMP, MG, GFR, TROPHS #### [address] [address] GFR Non- 48 ml/min/1.73sqm Normal [facility] ([place]) Comment on above: Result Comment: GFR Population mean for , Non- Americans Ages 20-29 = 116 mL/min/1.73 sq.m. Ages 30-39 = 107 mL/min/1.73 sq.m. Ages 40-49 = 99 mL/min/1.73 sq.m. Ages 50-59 = 93 mL/min/1.73 sq.m. Ages 60-69 = 85 mL/min/1.73 sq.m. Ages 70+ = 75 mL/min/1.73 sq.m. Chronic Kidney Disease: Less than 60 mL/min/1.73 square meters End Stage Renal Disease: Less than 15 mL/min/1.73 square meters Performed By: #### C BC, ADIFF, ANEU, BMP, MG, GFR, TROPHS #### [address] [address] .NEUABSon 06-04-2020 Neutrophils (Bld) [#/Vol] 7.90 10 3/mcL Normal 2.25-8.10 [facility] ([place]) Comment on above: Performed By: #### C BC, ADIFF, ANEU, BMP, MG, GFR, TROPHS #### [place] [address] BMPon 06-04-2020 Calcium [Mass/Vol] 9.5 mg/dL Normal 8.4-10.1 [facility] ([place]) Comment on above: Result Comment: No te - New Reference Range in effect 20 Performed By: #### C BC, ADIFF, ANEU, BMP, MG, GFR, TROPHS #### [place] [id number] Chloride [Moles/Vol] 106 mmol/L Normal 98-110 [facility] ([place]) Comment on above: Performed By: #### C BC, ADIFF, ANEU, BMP, MG, GFR, TROPHS #### [address] [address] CO2 [Moles/Vol] 25 mmol/L Normal 22-32 [facility] ([place]) Comment on above: Performed By: #### C BC, ADIFF, ANEU, BMP, MG, GFR, TROPHS #### [address] [address] Creatinine [Mass/Vol] 1.11 mg/dL Normal 0.50-1.20 [facility] ([place]) Comment on above: Performed By: #### C BC, ADIFF, ANEU, BMP, MG, GFR, TROPHS #### [address] [address] Electrolyte Balance 8.0 mEq/L Normal 4.0-15.0 [facility] ([place]) Comment on above: Performed By: #### C BC, ADIFF, ANEU, BMP, MG, GFR, TROPHS #### [address] [address] Glucose [Mass/Vol] 79 mg/dL Low 82-115 [facility] ([place]) Comment on above: Performed By: #### C BC, ADIFF, ANEU, BMP, MG, GFR, TROPHS #### [address] [address] Potassium [Moles/Vol] 3.3 mmol/L Low 3.5-5.0 [facility] ([place]) Comment on above: Performed By: #### C BC, ADIFF, ANEU, BMP, MG, GFR, TROPHS #### [address] [address] Sodium [Moles/Vol] 139 mmol/L Normal 136-145 [facility] ([place]) Comment on above: Performed By: #### C BC, ADIFF, ANEU, BMP, MG, GFR, TROPHS #### [address] [address] Urea nitrogen [Mass/Vol] 29.0 mg/dL High 8.0-22.0 [facility] ([place]) Comment on above: Performed By: #### C BC, ADIFF, ANEU, BMP, MG, GFR, TROPHS #### [address] [address] Urea nitrogen/Creatinine [Mass ratio] 26.1 ratio High 10.0-22.0 [facility] ([place]) Comment on above: Performed By: #### C BC, ADIFF, ANEU, BMP, MG, GFR, TROPHS #### [address] [address] CBCon 06-04-2020 Erythrocyte distribution width (RBC) [Ratio] 14.2 % Normal 11.5-15.5 [facility] ([place]) Comment on above: Performed By: #### C BC, ADIFF, ANEU, BMP, MG, GFR, TROPHS #### [place] [address] Hematocrit (Bld) [Volume fraction] 36.3 % Normal 34.0-46.0 [facility] ([place]) Comment on above: Performed By: #### C BC, ADIFF, ANEU, BMP, MG, GFR, TROPHS #### [place] [address] Hemoglobin (Bld) [Mass/Vol] 12.8 G/dL Normal 12.0-16.0 [facility] ([place]) Comment on above: Performed By: #### C BC, ADIFF, ANEU, BMP, MG, GFR, TROPHS #### [place] [id number] MCH (RBC) [Entitic mass] 32.7 pg Normal 27.0-33.0 [facility] ([place]) Comment on above: Performed By: #### C BC, ADIFF, ANEU, BMP, MG, GFR, TROPHS #### [place] [id number] MCHC (RBC) [Mass/Vol] 35.3 G/dL Normal 32.0-36.0 [facility] ([place]) Comment on above: Performed By: #### C BC, ADIFF, ANEU, BMP, MG, GFR, TROPHS #### [place] [id number] MCV (RBC) [Entitic vol] 92.5 fL Normal 80.0-99.0 [facility] ([place]) Comment on above: Performed By: #### C BC, ADIFF, ANEU, BMP, MG, GFR, TROPHS #### [place] [id number] Platelet mean volume (Bld) [Entitic vol] 8.6 fL Normal 6.6-10.5 [facility] ([place]) Comment on above: Performed By: #### C BC, ADIFF, ANEU, BMP, MG, GFR, TROPHS #### [address] [address] Platelets (Bld) [#/Vol] 192 10 3/mcL Normal 150-450 [facility] ([place]) Comment on above: Performed By: #### C BC, ADIFF, ANEU, BMP, MG, GFR, TROPHS #### [address] [address] RBC (Bld) [#/Vol] 3.92 10 6/mcL Low 4.10-5.30 [facility] ([place]) Comment on above: Performed By: #### C BC, ADIFF, ANEU, BMP, MG, GFR, TROPHS #### [address] [address] WBC (Bld) [#/Vol] 12.20 10 3/mcL High 4.50-10.80 [facility] ([place]) Comment on above: Performed By: #### C BC, ADIFF, ANEU, BMP, MG, GFR, TROPHS #### [address] [address] MGon 06-04-2020 Magnesium [Mass/Vol] 1.9 mg/dL Normal 1.6-2.4 [facility] ([place]) Comment on above: Performed By: #### C BC, ADIFF, ANEU, BMP, MG, GFR, TROPHS #### [address] [address] PROon 06-04-2020 INR Coag (PPP) [Relative time] 1.4 {INR} Normal [facility] ([place]) Comment on above: Order Comment: order ed secondary to warfarin order Result Comment: [employer] [place] [employer] (CHEST, 1992, 102:312S-25S) recommended therapeutic range for oral anticoagulant therapy is: LOW RISK: Prophylaxis of venous thrombosis INR: 2.0-3.0 Treatment of pulmonary embolism 2.0-3.0 Prevention of systemic embolism 2.0-3.0 HIGH RISK: Mechanical prosthetic valves 2.5-3.5 Performed By: #### C BC, ADIFF, ANEU, BMP, MG, GFR, TROPHS #### [place] [id number] PT Coag (PPP) [Time] 16.6 s High 9.0-14.6 [facility] ([place]) Comment on above: Order Comment: order ed secondary to warfarin order Result Comment: Effe ctive 03/04/08, Protime results may be affected by some antibiotics (i.e. Ciprofloxacin, Azithromycin, Bactrim) which may potentiate the action of oral anticoagulants, with further increases in Protime/INR. Performed By: #### C BC, ADIFF, ANEU, BMP, MG, GFR, TROPHS #### [place] [address] TABOon 06-04-2020 ABO/Rh Interp Positive [facility] ([place]) Comment on above: Performed By: #### C BC, ADIFF, ANEU, BMP, MG, GFR, TROPHS #### [place] [address] TABSon 06-04-2020 Antibody Screen Tango Negative Normal [facility]) Comment on above: Performed By: #### C BC, ADIFF, ANEU, BMP, MG, GFR, TROPHS #### [place] [address] .Auto Diffon 06-03-2020 Ammonia (P) [Mass/Vol] 1.00 10 3/mcL Normal 0.09-1.40 [facility] ([place]) Comment on above: Performed By: #### C BC, ADIFF, ANEU, BMP, MG, GFR, TROPHS #### [place] [address] Basophils (Bld) [#/Vol] 0.10 10 3/mcL Normal 0.00-0.27 [facility] ([place]) Comment on above: Performed By: #### C BC, ADIFF, ANEU, BMP, MG, GFR, TROPHS #### [place] [address] Basophils/100 WBC (Bld) 0.6 % Normal 0.0-2.5 [facility] ([place]) Comment on above: Performed By: #### C BC, ADIFF, ANEU, BMP, MG, GFR, TROPHS #### [facility] [address] [place], [place] [address] Eosinophils (Bld) [#/Vol] 0.10 10 3/mcL Normal 0.00-0.65 [facility] ([place]) Comment on above: Performed By: #### C BC, ADIFF, ANEU, BMP, MG, GFR, TROPHS #### [address] [address] Eosinophils/100 WBC (Bld) 0.9 % Normal 0.0-6.0 [facility] ([place]) Comment on above: Performed By: #### C BC, ADIFF, ANEU, BMP, MG, GFR, TROPHS #### [address] [address] Lymphocytes (Bld) [#/Vol] 2.40 10 3/mcL Normal 0.90-4.32 [facility] ([place]) Comment on above: Performed By: #### C BC, ADIFF, ANEU, BMP, MG, GFR, TROPHS #### [address] [address] Lymphocytes/100 WBC (Bld) 15.9 % Low 20.0-40.0 [facility] ([place]) Comment on above: Performed By: #### C BC, ADIFF, ANEU, BMP, MG, GFR, TROPHS #### [address] [address] Monocytes/100 WBC (Bld) 6.8 % Normal 2.0-13.0 [facility] ([place]) Comment on above: Performed By: #### C BC, ADIFF, ANEU, BMP, MG, GFR, TROPHS #### [address] [address] Neutrophils/100 WBC (Bld) 75.8 % High 50.0-75.0 [facility] ([place]) Comment on above: Performed By: #### C BC, ADIFF, ANEU, BMP, MG, GFR, TROPHS #### [address] [address] Ammonia (P) [Mass/Vol] 1.90 10 3/mcL High 0.09-1.40 [facility] ([place]) Comment on above: Performed By: #### C BC, ADIFF, ANEU, BMP, MG, GFR, TROPHS #### [address] [address] Basophils (Bld) [#/Vol] 0.10 10 3/mcL Normal 0.00-0.27 [facility] ([place]) Comment on above: Performed By: #### C BC, ADIFF, ANEU, BMP, MG, GFR, TROPHS #### [address] [address] Basophils/100 WBC (Bld) 0.3 % Normal 0.0-2.5 [facility] ([place]) Comment on above: Performed By: #### C BC, ADIFF, ANEU, BMP, MG, GFR, TROPHS #### [address] [address] Eosinophils (Bld) [#/Vol] 0.10 10 3/mcL Normal 0.00-0.65 [facility] ([place]) Comment on above: Performed By: #### C BC, ADIFF, ANEU, BMP, MG, GFR, TROPHS #### [address] [address] Eosinophils/100 WBC (Bld) 0.4 % Normal 0.0-6.0 [facility] ([place]) Comment on above: Performed By: #### C BC, ADIFF, ANEU, BMP, MG, GFR, TROPHS #### [address] [address] Lymphocytes (Bld) [#/Vol] 1.00 10 3/mcL Normal 0.90-4.32 [facility] ([place]) Comment on above: Performed By: #### C BC, ADIFF, ANEU, BMP, MG, GFR, TROPHS #### [address] [address] Lymphocytes/100 WBC (Bld) 4.6 % Low 20.0-40.0 [facility] ([place]) Comment on above: Performed By: #### C BC, ADIFF, ANEU, BMP, MG, GFR, TROPHS #### [address] [address] Monocytes/100 WBC (Bld) 9.0 % Normal 2.0-13.0 [facility] ([place]) Comment on above: Performed By: #### C BC, ADIFF, ANEU, BMP, MG, GFR, TROPHS #### [address] [address] Neutrophils/100 WBC (Bld) 85.7 % High 50.0-75.0 [facility] ([place]) Comment on above: Performed By: #### C BC, ADIFF, ANEU, BMP, MG, GFR, TROPHS #### [address] [address] Ammonia (P) [Mass/Vol] 1.10 10 3/mcL Normal 0.09-1.40 [facility] ([place]) Comment on above: Performed By: #### C BC, ADIFF, ANEU, BMP, MG, GFR, TROPHS #### [address] [address] Basophils (Bld) [#/Vol] 0.10 10 3/mcL Normal 0.00-0.27 [facility] ([place]) Comment on above: Performed By: #### C BC, ADIFF, ANEU, BMP, MG, GFR, TROPHS #### [address] [address] Basophils/100 WBC (Bld) 0.6 % Normal 0.0-2.5 [facility] ([place]) Comment on above: Performed By: #### C BC, ADIFF, ANEU, BMP, MG, GFR, TROPHS #### [address] [address] Eosinophils (Bld) [#/Vol] 0.20 10 3/mcL Normal 0.00-0.65 [facility] ([place]) Comment on above: Performed By: #### C BC, ADIFF, ANEU, BMP, MG, GFR, TROPHS #### [address] [address] Eosinophils/100 WBC (Bld) 1.9 % Normal 0.0-6.0 [facility] ([place]) Comment on above: Performed By: #### C BC, ADIFF, ANEU, BMP, MG, GFR, TROPHS #### [address] [address] Lymphocytes (Bld) [#/Vol] 2.30 10 3/mcL Normal 0.90-4.32 [facility] ([place]) Comment on above: Performed By: #### C BC, ADIFF, ANEU, BMP, MG, GFR, TROPHS #### [address] [address] Lymphocytes/100 WBC (Bld) 18.4 % Low 20.0-40.0 [facility] ([place]) Comment on above: Performed By: #### C BC, ADIFF, ANEU, BMP, MG, GFR, TROPHS #### [address] [address] Monocytes/100 WBC (Bld) 9.1 % Normal 2.0-13.0 [facility] ([place]) Comment on above: Performed By: #### C BC, ADIFF, ANEU, BMP, MG, GFR, TROPHS #### [address] [address] Neutrophils/100 WBC (Bld) 70.0 % Normal 50.0-75.0 [facility] ([place]) Comment on above: Performed By: #### C BC, ADIFF, ANEU, BMP, MG, GFR, TROPHS #### [address] [address] .GFRon 06-03-2020 GFR >60 Normal [facility] ([place]) Comment on above: Result Comment: GFR Population mean for , Non- Americans Ages 20-29 = 116 mL/min/1.73 sq.m. Ages 30-39 = 107 mL/min/1.73 sq.m. Ages 40-49 = 99 mL/min/1.73 sq.m. Ages 50-59 = 93 mL/min/1.73 sq.m. Ages 60-69 = 85 mL/min/1.73 sq.m. Ages 70+ = 75 mL/min/1.73 sq.m. Chronic Kidney Disease: Less than 60 mL/min/1.73 square meters End Stage Renal Disease: Less than 15 mL/min/1.73 square meters Performed By: #### C BC, ADIFF, ANEU, BMP, MG, GFR, TROPHS #### [address] [address] GFR Non- 52 ml/min/1.73sqm Normal [facility] ([place]) Comment on above: Result Comment: GFR Population mean for , Non- Americans Ages 20-29 = 116 mL/min/1.73 sq.m. Ages 30-39 = 107 mL/min/1.73 sq.m. Ages 40-49 = 99 mL/min/1.73 sq.m. Ages 50-59 = 93 mL/min/1.73 sq.m. Ages 60-69 = 85 mL/min/1.73 sq.m. Ages 70+ = 75 mL/min/1.73 sq.m. Chronic Kidney Disease: Less than 60 mL/min/1.73 square meters End Stage Renal Disease: Less than 15 mL/min/1.73 square meters Performed By: #### C BC, ADIFF, ANEU, BMP, MG, GFR, TROPHS #### [address] [address] GFR Non- >60 Normal [facility] ([place]) Comment on above: Result Comment: GFR Population mean for , Non- Americans Ages 20-29 = 116 mL/min/1.73 sq.m. Ages 30-39 = 107 mL/min/1.73 sq.m. Ages 40-49 = 99 mL/min/1.73 sq.m. Ages 50-59 = 93 mL/min/1.73 sq.m. Ages 60-69 = 85 mL/min/1.73 sq.m. Ages 70+ = 75 mL/min/1.73 sq.m. Chronic Kidney Disease: Less than 60 mL/min/1.73 square meters End Stage Renal Disease: Less than 15 mL/min/1.73 square meters Performed By: #### C BC, ADIFF, ANEU, BMP, MG, GFR, TROPHS #### [address] [address] GFR >60 Normal [facility] ([place]) Comment on above: Result Comment: GFR Population mean for , Non- Americans Ages 20-29 = 116 mL/min/1.73 sq.m. Ages 30-39 = 107 mL/min/1.73 sq.m. Ages 40-49 = 99 mL/min/1.73 sq.m. Ages 50-59 = 93 mL/min/1.73 sq.m. Ages 60-69 = 85 mL/min/1.73 sq.m. Ages 70+ = 75 mL/min/1.73 sq.m. Chronic Kidney Disease: Less than 60 mL/min/1.73 square meters End Stage Renal Disease: Less than 15 mL/min/1.73 square meters Performed By: #### C BC, ADIFF, ANEU, BMP, MG, GFR, TROPHS #### [address] [address] .NEUABSon 06-03-2020 Neutrophils (Bld) [#/Vol] 11.50 10 3/mcL High 2.25-8.10 [facility] ([place]) Comment on above: Performed By: #### C BC, ADIFF, ANEU, BMP, MG, GFR, TROPHS #### [address] [address] Neutrophils (Bld) [#/Vol] 17.80 10 3/mcL High 2.25-8.10 [facility] ([place]) Comment on above: Performed By: #### C BC, ADIFF, ANEU, BMP, MG, GFR, TROPHS #### [address] [address] Neutrophils (Bld) [#/Vol] 8.90 10 3/mcL High 2.25-8.10 [facility] ([place]) Comment on above: Performed By: #### C BC, ADIFF, ANEU, BMP, MG, GFR, TROPHS #### [place] [address] APTTon 06-03-2020 aPTT Coag (Bld) [Time] Heparin IV Normal [facility] ([place]) Comment on above: Performed By: #### C BC, ADIFF, ANEU, BMP, MG, GFR, TROPHS #### [place] [address] aPTT Coag (Bld) [Time] 63.5 s High 25.0-35.0 [facility] ([place]) Comment on above: Result Comment: For Heparin anticoagulation therapy, the recommended therapeutic range is: 54-77 seconds (APTT Correlation with Anti-Xa therapeutic range of 0.3-0.7 units/ml). PLEASE REFERENCE THE PHARMACY PROTOCOL FOR DOSING. Performed By: #### C BC, ADIFF, ANEU, BMP, MG, GFR, TROPHS #### [address] [address] aPTT Coag (Bld) [Time] 96.5 s High 25.0-35.0 [facility] ([place]) Comment on above: Result Comment: For Heparin anticoagulation therapy, the recommended therapeutic range is: 54-77 seconds (APTT Correlation with Anti-Xa therapeutic range of 0.3-0.7 units/ml). PLEASE REFERENCE THE PHARMACY PROTOCOL FOR DOSING. Performed By: #### C BC, ADIFF, ANEU, BMP, MG, GFR, TROPHS #### [place] [id number] aPTT Coag (Bld) [Time] Heparin IV Normal [facility] ([place]) Comment on above: Performed By: #### C BC, ADIFF, ANEU, BMP, MG, GFR, TROPHS #### [address] [address] aPTT Coag (Bld) [Time] Heparin IV Normal [facility] ([place]) Comment on above: Performed By: #### A PTT #### [place] [id number] aPTT Coag (Bld) [Time] 37.0 s High 25.0-35.0 [facility] ([place]) Comment on above: Result Comment: For Heparin anticoagulation therapy, the recommended therapeutic range is: 54-77 seconds (APTT Correlation with Anti-Xa therapeutic range of 0.3-0.7 units/ml). PLEASE REFERENCE THE PHARMACY PROTOCOL FOR DOSING. Performed By: #### A PTT #### [place] [id number] BMPon 06-03-2020 Calcium [Mass/Vol] 9.6 mg/dL Normal 8.4-10.1 [facility] ([place]) Comment on above: Result Comment: No te - New Reference Range in effect 20 Performed By: #### C BC, ADIFF, ANEU, BMP, MG, GFR, TROPHS #### [address] [address] Chloride [Moles/Vol] 106 mmol/L Normal 98-110 [facility] ([place]) Comment on above: Performed By: #### C BC, ADIFF, ANEU, BMP, MG, GFR, TROPHS #### [address] [address] CO2 [Moles/Vol] 25 mmol/L Normal 22-32 [facility] ([place]) Comment on above: Performed By: #### C BC, ADIFF, ANEU, BMP, MG, GFR, TROPHS #### [place] [id number] Creatinine [Mass/Vol] 1.04 mg/dL Normal 0.50-1.20 [facility] ([place]) Comment on above: Performed By: #### C BC, ADIFF, ANEU, BMP, MG, GFR, TROPHS #### [place] [address] Electrolyte Balance 9.0 mEq/L Normal 4.0-15.0 [facility] ([place]) Comment on above: Performed By: #### C BC, ADIFF, ANEU, BMP, MG, GFR, TROPHS #### [place] [id number] Glucose [Mass/Vol] 159 mg/dL High 82-115 [facility] ([place]) Comment on above: Performed By: #### C BC, ADIFF, ANEU, BMP, MG, GFR, TROPHS #### [place] [id number] Potassium [Moles/Vol] 3.9 mmol/L Normal 3.5-5.0 [facility] ([place]) Comment on above: Performed By: #### C BC, ADIFF, ANEU, BMP, MG, GFR, TROPHS #### [address] [address] Sodium [Moles/Vol] 140 mmol/L Normal 136-145 [facility] ([place]) Comment on above: Performed By: #### C BC, ADIFF, ANEU, BMP, MG, GFR, TROPHS #### [address] [address] Urea nitrogen [Mass/Vol] 25.0 mg/dL High 8.0-22.0 [facility] ([place]) Comment on above: Performed By: #### C BC, ADIFF, ANEU, BMP, MG, GFR, TROPHS #### [address] [address] Urea nitrogen/Creatinine [Mass ratio] 24.0 ratio High 10.0-22.0 [facility] ([place]) Comment on above: Performed By: #### C BC, ADIFF, ANEU, BMP, MG, GFR, TROPHS #### [address] [address] Calcium [Mass/Vol] 9.7 mg/dL Normal 8.4-10.1 [facility] ([place]) Comment on above: Result Comment: No te - New Reference Range in effect 20 Performed By: #### C BC, ADIFF, ANEU, BMP, MG, GFR, TROPHS #### [address] [address] [address] Chloride [Moles/Vol] 108 mmol/L Normal 98-110 [facility] ([place]) Comment on above: Performed By: #### C BC, ADIFF, ANEU, BMP, MG, GFR, TROPHS #### [address] [address] CO2 [Moles/Vol] 28 mmol/L Normal 22-32 [facility] ([place]) Comment on above: Performed By: #### C BC, ADIFF, ANEU, BMP, MG, GFR, TROPHS #### [address] [address] Creatinine [Mass/Vol] 0.90 mg/dL Normal 0.50-1.20 [facility] ([place]) Comment on above: Performed By: #### C BC, ADIFF, ANEU, BMP, MG, GFR, TROPHS #### [address] [address] Electrolyte Balance 6.0 mEq/L Normal 4.0-15.0 [facility] ([place]) Comment on above: Performed By: #### C BC, ADIFF, ANEU, BMP, MG, GFR, TROPHS #### [address] [address] Glucose [Mass/Vol] 96 mg/dL Normal 82-115 [facility] ([place]) Comment on above: Performed By: #### C BC, ADIFF, ANEU, BMP, MG, GFR, TROPHS #### [place] [id number] Potassium [Moles/Vol] 4.0 mmol/L Normal 3.5-5.0 [facility] ([place]) Comment on above: Performed By: #### C BC, ADIFF, ANEU, BMP, MG, GFR, TROPHS #### [place] [id number] Sodium [Moles/Vol] 142 mmol/L Normal 136-145 [facility] ([place]) Comment on above: Performed By: #### C BC, ADIFF, ANEU, BMP, MG, GFR, TROPHS #### [place] [id number] Urea nitrogen [Mass/Vol] 20.0 mg/dL Normal 8.0-22.0 [facility] ([place]) Comment on above: Performed By: #### C BC, ADIFF, ANEU, BMP, MG, GFR, TROPHS #### [address] [address] Urea nitrogen/Creatinine [Mass ratio] 22.2 ratio High 10.0-22.0 [facility] ([place]) Comment on above: Performed By: #### C BC, ADIFF, ANEU, BMP, MG, GFR, TROPHS #### [address] [address] CBCon 06-03-2020 Erythrocyte distribution width (RBC) [Ratio] 14.0 % Normal 11.5-15.5 [facility] ([place]) Comment on above: Performed By: #### C BC, ADIFF, ANEU, BMP, MG, GFR, TROPHS #### [place] [address] Hematocrit (Bld) [Volume fraction] 39.1 % Normal 34.0-46.0 [facility] ([place]) Comment on above: Performed By: #### C BC, ADIFF, ANEU, BMP, MG, GFR, TROPHS #### [place] [address] Hemoglobin (Bld) [Mass/Vol] 13.5 G/dL Normal 12.0-16.0 [facility] ([place]) Comment on above: Performed By: #### C BC, ADIFF, ANEU, BMP, MG, GFR, TROPHS #### [place] [address] MCH (RBC) [Entitic mass] 31.9 pg Normal 27.0-33.0 [facility] ([place]) Comment on above: Performed By: #### C BC, ADIFF, ANEU, BMP, MG, GFR, TROPHS #### [place] [id number] MCHC (RBC) [Mass/Vol] 34.5 G/dL Normal 32.0-36.0 [facility] ([place]) Comment on above: Performed By: #### C BC, ADIFF, ANEU, BMP, MG, GFR, TROPHS #### [place] [id number] MCV (RBC) [Entitic vol] 92.6 fL Normal 80.0-99.0 [facility] ([place]) Comment on above: Performed By: #### C BC, ADIFF, ANEU, BMP, MG, GFR, TROPHS #### [place] [id number] Platelet mean volume (Bld) [Entitic vol] 9.3 fL Normal 6.6-10.5 [facility] ([place]) Comment on above: Performed By: #### C BC, ADIFF, ANEU, BMP, MG, GFR, TROPHS #### [address] [address] Platelets (Bld) [#/Vol] 209 10 3/mcL Normal 150-450 [facility] ([place]) Comment on above: Performed By: #### C BC, ADIFF, ANEU, BMP, MG, GFR, TROPHS #### [place] [id number] RBC (Bld) [#/Vol] 4.22 10 6/mcL Normal 4.10-5.30 [facility] ([place]) Comment on above: Performed By: #### C BC, ADIFF, ANEU, BMP, MG, GFR, TROPHS #### [place] [id number] WBC (Bld) [#/Vol] 15.10 10 3/mcL High 4.50-10.80 [facility] ([place]) Comment on above: Performed By: #### C BC, ADIFF, ANEU, BMP, MG, GFR, TROPHS #### [place] [id number] Erythrocyte distribution width (RBC) [Ratio] 14.5 % Normal 11.5-15.5 [facility] ([place]) Comment on above: Performed By: #### C BC, ADIFF, ANEU, BMP, MG, GFR, TROPHS #### [place] [id number] Hematocrit (Bld) [Volume fraction] 38.7 % Normal 34.0-46.0 [facility] ([place]) Comment on above: Performed By: #### C BC, ADIFF, ANEU, BMP, MG, GFR, TROPHS #### [place] [id number] Hemoglobin (Bld) [Mass/Vol] 13.6 G/dL Normal 12.0-16.0 [facility] ([place]) Comment on above: Performed By: #### C BC, ADIFF, ANEU, BMP, MG, GFR, TROPHS #### [place] [id number] MCH (RBC) [Entitic mass] 32.3 pg Normal 27.0-33.0 [facility] ([place]) Comment on above: Performed By: #### C BC, ADIFF, ANEU, BMP, MG, GFR, TROPHS #### [address] [address] MCHC (RBC) [Mass/Vol] 35.0 G/dL Normal 32.0-36.0 [facility] ([place]) Comment on above: Performed By: #### C BC, ADIFF, ANEU, BMP, MG, GFR, TROPHS #### [place] [id number] MCV (RBC) [Entitic vol] 92.3 fL Normal 80.0-99.0 [facility] ([place]) Comment on above: Performed By: #### C BC, ADIFF, ANEU, BMP, MG, GFR, TROPHS #### [address] [address] Platelet mean volume (Bld) [Entitic vol] 8.3 fL Normal 6.6-10.5 [facility] ([place]) Comment on above: Performed By: #### C BC, ADIFF, ANEU, BMP, MG, GFR, TROPHS #### [address] [address] Platelets (Bld) [#/Vol] 198 10 3/mcL Normal 150-450 [facility] ([place]) Comment on above: Performed By: #### C BC, ADIFF, ANEU, BMP, MG, GFR, TROPHS #### [address] [address] RBC (Bld) [#/Vol] 4.19 10 6/mcL Normal 4.10-5.30 [facility] ([place]) Comment on above: Performed By: #### C BC, ADIFF, ANEU, BMP, MG, GFR, TROPHS #### [address] [address] WBC (Bld) [#/Vol] 20.80 10 3/mcL High 4.50-10.80 [facility] ([place]) Comment on above: Performed By: #### C BC, ADIFF, ANEU, BMP, MG, GFR, TROPHS #### [place] [id number] Erythrocyte distribution width (RBC) [Ratio] 14.3 % Normal 11.5-15.5 [facility] ([place]) Comment on above: Performed By: #### C BC, ADIFF, ANEU, BMP, MG, GFR, TROPHS #### [place] [id number] Hematocrit (Bld) [Volume fraction] 40.5 % Normal 34.0-46.0 [facility] ([place]) Comment on above: Performed By: #### C BC, ADIFF, ANEU, BMP, MG, GFR, TROPHS #### [place] [id number] Hemoglobin (Bld) [Mass/Vol] 14.1 G/dL Normal 12.0-16.0 [facility] ([place]) Comment on above: Performed By: #### C BC, ADIFF, ANEU, BMP, MG, GFR, TROPHS #### [place] [id number] MCH (RBC) [Entitic mass] 32.1 pg Normal 27.0-33.0 [facility] ([place]) Comment on above: Performed By: #### C BC, ADIFF, ANEU, BMP, MG, GFR, TROPHS #### [place] [id number] MCHC (RBC) [Mass/Vol] 34.7 G/dL Normal 32.0-36.0 [facility] ([place]) Comment on above: Performed By: #### C BC, ADIFF, ANEU, BMP, MG, GFR, TROPHS #### [place] [id number] MCV (RBC) [Entitic vol] 92.4 fL Normal 80.0-99.0 [facility] ([place]) Comment on above: Performed By: #### C BC, ADIFF, ANEU, BMP, MG, GFR, TROPHS #### [place] [address] Platelet mean volume (Bld) [Entitic vol] 8.6 fL Normal 6.6-10.5 [facility] ([place]) Comment on above: Performed By: #### C BC, ADIFF, ANEU, BMP, MG, GFR, TROPHS #### [address] [address] Platelets (Bld) [#/Vol] 209 10 3/mcL Normal 150-450 [facility] ([place]) Comment on above: Performed By: #### C BC, ADIFF, ANEU, BMP, MG, GFR, TROPHS #### [address] [address] RBC (Bld) [#/Vol] 4.38 10 6/mcL Normal 4.10-5.30 [facility] ([place]) Comment on above: Performed By: #### C BC, ADIFF, ANEU, BMP, MG, GFR, TROPHS #### [address] [address] WBC (Bld) [#/Vol] 12.70 10 3/mcL High 4.50-10.80 [facility] ([place]) Comment on above: Performed By: #### C BC, ADIFF, ANEU, BMP, MG, GFR, TROPHS #### [address] [address] LUAon 06-03-2020 CHARLENE . MICRO - Microbiology PROCEDURE: Legionella Urine Ag [*1] SOURCE: Urine BODY SITE: COLLECTED DATE/TIME: 06/03/2020 08:52 EDT RECEIVED DATE/TIME: 06/03/2020 11:09 EDT START DATE/TIME: 06/03/2020 11:09 EDT FREE TEXT SOURCE: FINAL REPORTS Final Report [] Verified Date/Time/Personnel: 06/03/2020 12:09 EDT Presumptive negative for L. pneumophila serogroup 1 antigen in urine, suggesting no recent or current infection. Legionnaire's disease cannot be ruled out since other serogroups and species may also cause disease. Performing Locations *1: This test was performed at: [address], [address] ([place]) Comment on above: Performed By: #### C BC, ADIFF, ANEU, BMP, MG, GFR, TROPHS #### [address] [address] MGon 06-03-2020 Magnesium [Mass/Vol] 2.0 mg/dL Normal 1.6-2.4 [facility] ([place]) Comment on above: Performed By: #### C BC, ADIFF, ANEU, BMP, MG, GFR, TROPHS #### [address] [address] Magnesium [Mass/Vol] 2.0 mg/dL Normal 1.6-2.4 [facility] ([place]) Comment on above: Performed By: #### C BC, ADIFF, ANEU, BMP, MG, GFR, TROPHS #### [place] [id number] PROon 06-03-2020 INR Coag (PPP) [Relative time] 1.9 {INR} Normal [facility] ([place]) Comment on above: Result Comment: The [place] [employer] (CHEST, 1992, 102:312S-25S) recommended therapeutic range for oral anticoagulant therapy is: LOW RISK: Prophylaxis of venous thrombosis INR: 2.0-3.0 Treatment of pulmonary embolism 2.0-3.0 Prevention of systemic embolism 2.0-3.0 HIGH RISK: Mechanical prosthetic valves 2.5-3.5 Performed By: #### P RO #### [place] [address] PT Coag (PPP) [Time] 23.0 s High 9.0-14.6 [facility] ([place]) Comment on above: Result Comment: Effe ctive 03/04/08, Protime results may be affected by some antibiotics (i.e. Ciprofloxacin, Azithromycin, Bactrim) which may potentiate the action of oral anticoagulants, with further increases in Protime/INR. Performed By: #### P RO #### [place] [address] RESCVIDon 06-03-2020 Adenovirus Not Detected Normal Not Detected [facility] ([place]) Comment on above: Performed By: #### C BC, ADIFF, ANEU, BMP, MG, GFR, TROPHS #### [place] [address] Bordetella Parapertussis Not Detected Normal Not Detected [facility] ([place]) Comment on above: Performed By: #### C BC, ADIFF, ANEU, BMP, MG, GFR, TROPHS #### [place] [address] Bordetella Pertussis Not Detected Normal Not Detected [facility] ([place]) Comment on above: Performed By: #### C BC, ADIFF, ANEU, BMP, MG, GFR, TROPHS #### [place] [address] Chlamydophila pneumoniae Not Detected Normal Not Detected [facility] ([place]) Comment on above: Performed By: #### C BC, ADIFF, ANEU, BMP, MG, GFR, TROPHS #### [place] [address] Coronavirus 229E (Not COVID-19) Not Detected Normal Not Detected [facility] ([place]) Comment on above: Performed By: #### C BC, ADIFF, ANEU, BMP, MG, GFR, TROPHS #### [place] [address] Coronavirus HKU1 (Not COVID-19) Not Detected Normal Not Detected [facility] ([place]) Comment on above: Performed By: #### C BC, ADIFF, ANEU, BMP, MG, GFR, TROPHS #### [place] [address] Coronavirus NL63 (Not COVID-19) Not Detected Normal Not Detected [facility] ([place]) Comment on above: Performed By: #### C BC, ADIFF, ANEU, BMP, MG, GFR, TROPHS #### [place] [address] Coronavirus OC43 (Not COVID-19) Not Detected Normal Not Detected [facility] ([place]) Comment on above: Performed By: #### C BC, ADIFF, ANEU, BMP, MG, GFR, TROPHS #### [place] [address] Date of Onset [id number] [facility] ([place]) Comment on above: Performed By: #### C BC, ADIFF, ANEU, BMP, MG, GFR, TROPHS #### [place] [address] Employed in Healthcare No Normal [facility] ([place]) Comment on above: Performed By: #### C BC, ADIFF, ANEU, BMP, MG, GFR, TROPHS #### [place] [address] First Test Yes Normal [facility] ([place]) Comment on above: Performed By: #### C BC, ADIFF, ANEU, BMP, MG, GFR, TROPHS #### [place] [address] Hospitalized Yes Normal [facility] ([place]) Comment on above: Performed By: #### C BC, ADIFF, ANEU, BMP, MG, GFR, TROPHS #### [place] [address] Human Metapneumovirus Not Detected Normal Not Detected [facility] ([place]) Comment on above: Performed By: #### C BC, ADIFF, ANEU, BMP, MG, GFR, TROPHS #### [place] [address] ICU No Normal [facility] ([place]) Comment on above: Performed By: #### C BC, ADIFF, ANEU, BMP, MG, GFR, TROPHS #### [place] [address] Influenza A Not Detected Normal Not Detected [facility] ([place]) Comment on above: Performed By: #### C BC, ADIFF, ANEU, BMP, MG, GFR, TROPHS #### [place] [address] Influenza B Not Detected Normal Not Detected [facility] ([place]) Comment on above: Performed By: #### C BC, ADIFF, ANEU, BMP, MG, GFR, TROPHS #### [place] [address] Mycoplasma pneumoniae Not Detected Normal Not Detected [facility] ([place]) Comment on above: Performed By: #### C BC, ADIFF, ANEU, BMP, MG, GFR, TROPHS #### [place] [address] Parainfluenza 1 Not Detected Normal Not Detected [facility] ([place]) Comment on above: Performed By: #### C BC, ADIFF, ANEU, BMP, MG, GFR, TROPHS #### [place] [address] Parainfluenza 2 Not Detected Normal Not Detected [facility] ([place]) Comment on above: Performed By: #### C BC, ADIFF, ANEU, BMP, MG, GFR, TROPHS #### [place] [address] Parainfluenza 3 Not Detected Normal Not Detected [facility] ([place]) Comment on above: Performed By: #### C BC, ADIFF, ANEU, BMP, MG, GFR, TROPHS #### [place] [address] Parainfluenza 4 Not Detected Normal Not Detected [facility] ([place]) Comment on above: Performed By: #### C BC, ADIFF, ANEU, BMP, MG, GFR, TROPHS #### [place] [address] Not Normal [facility] ([place]) Comment on above: Performed By: #### C BC, ADIFF, ANEU, BMP, MG, GFR, TROPHS #### [place] [address] Resides in Congregate Care Setting No Normal [facility] ([place]) Comment on above: Performed By: #### C BC, ADIFF, ANEU, BMP, MG, GFR, TROPHS #### [place] [address] Respiratory Syncytial Virus Not Detected Normal Not Detected [facility] ([place]) Comment on above: Performed By: #### C BC, ADIFF, ANEU, BMP, MG, GFR, TROPHS #### [place] [address] Rhinovirus/Enterovir us Not Detected Normal Not Detected [facility] ([place]) Comment on above: Performed By: #### C BC, ADIFF, ANEU, BMP, MG, GFR, TROPHS #### [place] [address] SARS-CoV-2 Not Detected Normal Not Detected [facility] ([place]) Comment on above: Result Comment: This test is being used under the FDA EUA procedure. This assay has been validated in the [facility] for use with nasopharyngeal specimens in [facility]. If a non-validated specimen or test collection method was used, please interpret the results with caution, especially if the test result is negative. A positive test result for COVID-19 indicates that RNA from SARS-CoV-2 was detected, and the patient is infected with the virus and presumed to be contagious. Laboratory test results should always be considered in the context of clinical observations and epidemiological data in making a final diagnosis and patient management decisions. Patient management should follow current CDC guidelines. A negative test result for this test means that SARS-CoV-2 RNA was not present in the specimen above the limit of detection. However, a negative result does not rule out COVID-19 and should not be used as the sole basis for treatment or patient management decisions. A negative result does not exclude the possibility of COVID-19. When diagnostic testing is negative, the possibility of a false negative result should be considered in the context of a patient's recent exposures and the presence of clinical signs and symptoms consistent with COVID-19. The possibility of a false negative result should especially be considered if the patient?s recent exposures or clinical presentation indicate that COVID-19 is likely, and diagnostic tests for other causes of illness (e.g., other respiratory illness) are negative. If COVID-19 is still suspected based on exposure history together with other clinical findings, re-testing should be considered by healthcare providers in consultation with public health authorities. Performed By: #### C BC, ADIFF, ANEU, BMP, MG, GFR, TROPHS #### [place] [address] Symptomatic as Defined by CDC No Normal [facility] ([place]) Comment on above: Performed By: #### C BC, ADIFF, ANEU, BMP, MG, GFR, TROPHS #### [place] [address] SPAGotiburcio 06-03-2020 SPAG . MICRO - Microbiology PROCEDURE: Streptococcus Pneumoniae Urine Antig [^1 *1] SOURCE: Urine, Clean Catch BODY SITE: COLLECTED DATE/TIME: 06/03/2020 08:52 EDT RECEIVED DATE/TIME: 06/03/2020 11:09 EDT START DATE/TIME: 06/03/2020 11:09 EDT FREE TEXT SOURCE: FINAL REPORTS Final Report [] Verified Date/Time/Personnel: 06/03/2020 12:09 EDT Presumptive negative for pneumococcal pneumonia, suggesting no current or recent pneumococcal infection. Infection due to Strep pneumoniae cannot be ruled out since the antigen present in the sample may be below the detection limit of the test. Interpretive Data ^1: Streptococcus Pneumoniae Urine Antig This test has not been evaluated on patients taking antibiotics for greater than 24 hours or on patients who have recently completed an antibiotic regimen. The accuracy of this test has not been proven in young children. Performing Locations *1: This test was performed at: [address], [address] [place] [address] ([place]) Comment on above: Performed By: #### C BC, ADIFF, ANEU, BMP, MG, GFR, TROPHS #### [address] 06-03-2020 Troponin I High Sensitivity (AH) <2.50 Normal 0.00-34.00 [facility] ([place]) Comment on above: Performed By: #### C BC, ADIFF, ANEU, BMP, MG, GFR, TROPHS #### [place] [address] Troponin I High Sensitivity (AH) <2.50 Normal 0.00-34.00 [facility] ([place]) Comment on above: Performed By: #### C BC, ADIFF, ANEU, BMP, MG, GFR, TROPHS #### [place] [address] Troponin I High Sensitivity (AH) <2.50 Normal 0.00-34.00 [facility] ([place]) Comment on above: Performed By: #### C BC, ADIFF, ANEU, BMP, MG, GFR, TROPHS #### [address] [address] UAon 06-03-2020 Color (U) Dark Yellow Normal [facility] ([place]) Comment on above: Performed By: #### C BC, ADIFF, ANEU, BMP, MG, GFR, TROPHS #### [address] [address] Glucose (U) [Mass/Vol] Negative Normal Negative [facility] ([place]) Comment on above: Performed By: #### C BC, ADIFF, ANEU, BMP, MG, GFR, TROPHS #### [address] [address] Ketones Ql (U) 15 mg/dL Abnormal Neg-Trace [facility] ([place]) Comment on above: Performed By: #### C BC, ADIFF, ANEU, BMP, MG, GFR, TROPHS #### [place] [address] UA Appear Hazy Abnormal Clear [facility] ([place]) Comment on above: Performed By: #### C BC, ADIFF, ANEU, BMP, MG, GFR, TROPHS #### [address] [address] UA Blood Small Abnormal Neg-Trace [facility] ([place]) Comment on above: Performed By: #### C BC, ADIFF, ANEU, BMP, MG, GFR, TROPHS #### [address] [address] UA Leuk Est Negative Normal Negative [facility] ([place]) Comment on above: Performed By: #### C BC, ADIFF, ANEU, BMP, MG, GFR, TROPHS #### [address] [address] UA Nitrite Negative Normal Negative [facility] ([place]) Comment on above: Performed By: #### C BC, ADIFF, ANEU, BMP, MG, GFR, TROPHS #### [address] [address] UA pH 5.5 Normal 5.0 - 8.0 [facility] ([place]) Comment on above: Performed By: #### C BC, ADIFF, ANEU, BMP, MG, GFR, TROPHS #### [address] [address] UA Protein Negative Normal Negative [facility] ([place]) Comment on above: Performed By: #### C BC, ADIFF, ANEU, BMP, MG, GFR, TROPHS #### [address] [address] UA Spec Grav 1.020 Normal 1.006-1.029 [facility] ([place]) Comment on above: Performed By: #### C BC, ADIFF, ANEU, BMP, MG, GFR, TROPHS #### [address] [address] UA Specimen Type Clean Catch Normal [facility] ([place]) Comment on above: Performed By: #### C BC, ADIFF, ANEU, BMP, MG, GFR, TROPHS #### [address] [address] UA Urobilinogen 1.0 E.U./dL Normal 0.2-1.0 [facility] ([place]) Comment on above: Performed By: #### C BC, ADIFF, ANEU, BMP, MG, GFR, TROPHS #### [place] [address] Urobilinogen Qn (U) Negative Normal Neg-Trace [facility] ([place]) Comment on above: Performed By: #### C BC, ADIFF, ANEU, BMP, MG, GFR, TROPHS #### [place] [id number] UAMICon 06-03-2020 RBC (U) [#/Vol] 3-5 Abnormal 0-2 [facility] ([place]) Comment on above: Performed By: #### C BC, ADIFF, ANEU, BMP, MG, GFR, TROPHS #### [place] [address] UA Bacteria Trace Abnormal Negative [facility] ([place]) Comment on above: Performed By: #### C BC, ADIFF, ANEU, BMP, MG, GFR, TROPHS #### [place] [address] UA Coarse Granular Casts Rare Abnormal [facility] ([place]) Comment on above: Performed By: #### C BC, ADIFF, ANEU, BMP, MG, GFR, TROPHS #### [address] [address] UA Fine Granular Casts Rare Normal [facility] ([place]) Comment on above: Performed By: #### C BC, ADIFF, ANEU, BMP, MG, GFR, TROPHS #### [place] [address] UA Mucous 2+ /hpf Normal [facility] ([place]) Comment on above: Performed By: #### C BC, ADIFF, ANEU, BMP, MG, GFR, TROPHS #### [place] [address] UA Squam Epithelial 25-50 Abnormal 0-20 [facility] ([place]) Comment on above: Performed By: #### C BC, ADIFF, ANEU, BMP, MG, GFR, TROPHS #### [place] [address] UA WBC 0-2 Normal 0-5 [facility] ([place]) Comment on above: Performed By: #### C BC, ADIFF, ANEU, BMP, MG, GFR, TROPHS #### [place] [address] XR CHEST 2 VIEWSon 0 XR CHEST 2 VIEWS ORIGINAL XR CHEST 2 VIEWS CLINICAL STATEMENT: chest pain and dyspnea. COMPARISON: 06/27/2018 FINDINGS: Postoperative change LEFT shoulder. The heart is normal in size and there is no vascular congestion present. Minimal scarring and pleural thickening is evident at the lateral aspect of the LEFT mid chest. No consolidation or pleural fluid seen. There are degenerative changes noted in the spine. IMPRESSION: No acute finding. Interpreted By: Marshal Kamara MD Preliminary Report By: Marshal Kamara MD Electronically Signed By: Marshal Kamara MD Dictated Date: 06/03/2020 3:38:54 PM Prelim Date: 06/03/2020 3:38:54 PM Sign Date: 06/03/2020 3:39:20 PM Ordering Provider:Antonio Thao Normal [facility] ([place]) CT ANGIOGRAPHY CHEST W/CONTR Romelia 05-28-2020 CT ANGIOGRAPHY CHEST W/CONTRAST ORIGINAL CT ANGIOGRAPHY CHEST W/CONTRAST TECHNIQUE: Images were obtained with IV contrast. Multiplanar reformatted and three dimensional volume rendered images were generated on an independent workstation. This exam was performed according to our departmental dose optimization program, and includes the following measures where applicable: automated exposure control, adjustment of the mAs and/or kVp according to patient size and/or exam, and an iterative reconstruction algorithm. CLINICAL STATEMENT: A-FIB / PRE ABLATION. COMPARISON: None FINDINGS: There are mild degenerative changes noted in the spine. Small scattered areas of scarring and pleural thickening are evident bilaterally. No confluent airspace disease is present and there is no pleural fluid present. There are multiple subcentimeter noncalcified nodules identified, between 2 and 4 mm in size. Upper and lower lobe involvement noted. The largest nodule is at the RIGHT lower lobe, 7 mm. No mediastinal adenopathy is visible. There is a small hiatal hernia noted. Renal cysts are incompletely imaged. Pulmonary vein measurements: RIGHT upper: Diameter 1.5 cm, length to 1st branch 1.8 cm RIGHT lower: Diameter 1.4 cm, length to 1st branch 1.5 cm LEFT upper: Diameter one CM, length to 1st branch 3 cm LEFT lower: Diameter 1.3 cm, length to 1st branch 2 cm No additional contributory abnormality identified. IMPRESSION: 1. No acute process. 2. Multiple bilateral noncalcified nodules measuring up to 7 mm at the RIGHT lower lobe. Followup CT chest at 3-6 months, then CT chest at 18-24 months is recommended per the 2017 Fleischner Society guidelines. For low risk patients, fub34-[address] is optional. These followup recommendations do not apply in immunocompromised patients or patients with cancers who are at risk for metastasis. Interpreted By: Marshal Kamara MD Preliminary Report By: Marshal Kamara MD Electronically Signed By: Marshal Kamara MD Dictated Date: 05/28/2020 9:06:59 AM Prelim Date: 05/28/2020 9:06:59 AM Sign Date: 05/28/2020 9:14:22 AM Ordering Provider:Flo Michael [facility] ([place]) [facility] 06-17-2017 Anion gap 9 mmol/L Normal 5-16 [facility] [place] Comment on above: Order Comment: Carolynn s: Alba Performed By: #### L 500.51606, L500.31858 ####[facility] NZRMMIJYFT5104 [place], [place] [address]Ja# [phone] BUN/Creatinine Ratio 21 mg/mg Normal 15-24 [facility] Comment on above: Order Comment: Campu s: M Performed By: #### L 500.62441, L500.43426 ####[facility] VQIPGWNNNC[address] [place] [address]Ug# [phone] Calcium 8.6 mg/dL Normal 8.5-10.1 [facility] Comment on above: Order Comment: Campu s: M Performed By: #### L 500.05857, L500.49743 ####[facility] [id number] [place] [address]Xs# [phone] Chloride 104 mmol/L Normal 98-107 [facility] Comment on above: Order Comment: Campu s: M Performed By: #### L 500.82151, L500.58052 ####[facility] [id number] [place] [address]Yi# [phone] CO2 24 mmol/L Normal 21-32 [facility] Comment on above: Order Comment: Campu s: M Performed By: #### L 500.17897, L500.21780 ####[facility] PAFJMGTGSL4283 [place], [place] [address]Ak# [phone] Creatinine 0.841 mg/dL Normal 0.510-0.950 [facility] Comment on above: Order Comment: Campu s: M Result Comment: Amanda ents receiving either N-Acetylcysteine (NAC) orMetamizole prior to venipuncture, may have falsely depressedresults. Performed By: #### L 500.31224, L500.04014 ####[facility] [id number] [place] [address]Gz# [phone] Glucose mass conc 295 mg/dL High 70-100 [facility] Comment on above: Order Comment: Campu s: M Result Comment: 70-1 00-Normal Fasting; 869-584-Hygpfnsw Fasting; greaterthan 126 on more than one result-Diabetes. ADA guidelines Performed By: #### L 500.95275, L500.50867 ####[facility] TMPXLFMYGF9869 [place], [place] [address]Uz# [phone] Potassium molar conc 4.2 mmol/L Normal 3.5-5.1 [facility] [place] Comment on above: Order Comment: Campu s: M Performed By: #### L 500.39255, L500.95638 ####[address] [address]Cs# [phone] Sodium 137 mmol/L Normal 136-145 [facility] [place] Comment on above: Order Comment: Campu s: M Performed By: #### L 500.95671, L500.48090 ####[address] [address]Jw# [phone] Urea nitrogen 18 mg/dL Normal 7-26 [facility] [place] Comment on above: Order Comment: Campu s: M Performed By: #### L 500.73454, L500.77550 ####[facility] [id number] [place] [address]Fr# [phone] CBC W/DIFFon 06-17-2017 BASO ABS 0.00 K/CU MM Normal 0-0.2 [facility] [place] Comment on above: Order Comment: Campu s: M Performed By: #### L 200.26495 ####[facility] [id number] [place] [address]Dv# [phone] Basophils/100 WBC Auto (Bld) 0.1 % Normal 0-2 [facility] [place] Comment on above: Order Comment: Campu s: M Performed By: #### L 200.08915 ####[facility] [id number] [place] [address]Lh# [phone] EOS ABS 0.00 K/CU MM Normal 0-0.5 [facility] [place] Comment on above: Order Comment: Campu s: M Performed By: #### L 200.89452 ####[facility] QVYBSLZJGA8256 [place], [place] [address]Tq# [phone] Eosinophils/100 leukocytes 0.0 % Normal 0-5 [facility] Comment on above: Order Comment: Campu s: M Performed By: #### L 200.57438 ####[facility] OAGYJAMCBY5727 [place], [place] [address]Eg# [phone] Erythrocyte distribution width Auto Ratio (RBC) 14.6 % High 11-14.5 [facility] Comment on above: Order Comment: Campu s: M Performed By: #### L 200.31768 ####[facility] [id number] [place] [address]Xw# [phone] Erythrocytes (RBC) 0.0 % Normal Less than 1 [facility] Comment on above: Order Comment: Campu s: M Performed By: #### L 200.08912 ####[facility] [id number] [place] [address]Kq# [phone] Erythrocytes (RBC) 3.61 M/CU MM Low 3.90-5.30 [facility] Comment on above: Order Comment: Campu s: M Performed By: #### L 200.80314 ####[facility] UWIKHJTBHR[address] [place] [address]Ku# [phone] Hematocrit (HCT) 31.3 % Low 35.0-47.0 [facility] Comment on above: Order Comment: Campu s: M Performed By: #### L 200.04182 ####[facility] [id number] [place] [address]Sb# [phone] Hemoglobin mass conc (Bld) 10.7 g/dL Low 11.5-15.5 [facility] Comment on above: Order Comment: Campu s: M Performed By: #### L 200.85406 ####[facility] KFTAWQHNGX[address] [place] [address]Up# [phone] IMMATR GRAN ABS 0.10 K/CU MM Normal Less than 2 [facility] [place] Comment on above: Order Comment: Campu s: M Performed By: #### L 200.80742 ####[facility] BBHFGOPLNI8328 [place], [place] [address]Gz# [phone] IMMATURE GRAN % 0.9 % Normal Less than 2 [facility] [place] Comment on above: Order Comment: Campu s: M Performed By: #### L 200.70705 ####[facility] NDUZYTNIAG[address] [place], [place] [address]Ph# [phone] Lymphocytes 1.40 K/CU MM Normal 0.9-4.4 [facility] [place] Comment on above: Order Comment: Campu s: M Performed By: #### L 200.26052 ####[facility] [id number] [place], [place] [address]Ph# [phone] Lymphocytes/100 leukocytes 12.0 % Low 20-40 [facility] [place] Comment on above: Order Comment: Campu s: M Performed By: #### L 200.96761 ####[facility] EFMVWFFNAC[address] [place], [place] [address]Ph# [phone] MCHC mass conc (RBC) 34.2 g/dL Normal 32.0-36.0 [facility] [place] Comment on above: Order Comment: Campu s: M Performed By: #### L 200.80547 ####[facility] MWHXKIQTVU[address] [place], [place] [address]Ph# [phone] MCV 86.7 fL Normal 80.0-99.0 [facility] [place] Comment on above: Order Comment: Campu s: M Performed By: #### L 200.73843 ####[facility] MVBITHTSIK[address] [place], [place] [address]Ph# [phone] MONO ABS 0.70 K/CU MM Normal 0.1-1.1 [facility] [place] Comment on above: Order Comment: Campu s: M Performed By: #### L 200.03530 ####[facility] OJIHIWSOVW[address] [place], [place] [address]Ph# [phone] Monocytes/100 leukocytes 6.5 % Normal 2-10 [facility] [place] Comment on above: Order Comment: Campu s: M Performed By: #### L 200.53268 ####[facility] GESKJQILZK9974 [place], [place] [address]Lf# [phone] Neutrophils 9.10 K/CU MM High 2.0-8.3 [facility] [place] Comment on above: Order Comment: Campu s: M Performed By: #### L 200.46613 ####[facility] XVUMPGXKIU8498 [place], [place] [address]Qf# [phone] Neutrophils/100 WBC Auto (Bld) 80.5 % High 45-75 [facility] Comment on above: Order Comment: Campu s: M Performed By: #### L 200.18894 ####[facility] NNRVBDDMWU4557 [place], [place] [address]Ie# [phone] Platelet mean volume (PMV) 10.6 fL Normal 9.4-12.4 [facility] Comment on above: Order Comment: Campu s: M Performed By: #### L 200.07264 ####[facility] LPCXSRKXOM8177 [place], [place] [address]Xo# [phone] Platelets 178 K/CU MM Normal 150-450 [facility] Comment on above: Order Comment: Campu s: M Performed By: #### L 200.68837 ####[facility] KIQNEVYKHL5183 [place], [place] [address]Ud# [phone] WBC (Leukocytes) 11.3 K/CU MM High 4.5-11.0 [facility] Comment on above: Order Comment: Campu s: M Performed By: #### L 200.75039 ####[facility] IAVZCVHLHY8998 [place], [place] [address]Zf# [phone] GFR ESTon 06-17-2017 IF AMER Greater than 60 Normal [facility] Comment on above: Order Comment: Campu s: M Performed By: #### L 550.08733 ####[place] [address] [place], [place] [address]Rd# [phone] IF non-AFR AMER Greater than 60 Normal [facility] Comment on above: Order Comment: Campu s: M Performed By: #### L 550.22593 ####[facility] AKJKYNYYOQ7334 [place], [place] [address]Tl# [phone] GLUCOSE METERon 06-17-2017 Glucose mass conc 326 mg/dL High 85-125 [facility] Glucose mass conc 335 mg/dL High 85-125 [facility] Glucose mass conc 378 mg/dL High 85-125 [facility] BMPon 06-16-2017 Anion gap 11 mmol/L Normal 5-16 [facility] Comment on above: Order Comment: Campu s: M Performed By: #### L 500.95220, L500.50590, L500.17833 ####[facility] ZUQQNOTGYG3585 [place], [place] [address]Ir# [phone] BUN/Creatinine Ratio 20 mg/mg Normal 15-24 [facility] Comment on above: Order Comment: Campu s: M Performed By: #### L 500.94742, L500.30713, L500.88964 ####[facility] MLJLTIMIKG7217 [place], [place] [address]Ms# [phone] Calcium 8.6 mg/dL Normal 8.5-10.1 [facility] Comment on above: Order Comment: Campu s: M Performed By: #### L 500.85180, L500.44938, L500.28608 ####[facility] VOVNINAZHS7423 [place], [place] [address]Ho# [phone] Chloride 105 mmol/L Normal 98-107 [facility] Comment on above: Order Comment: Campu s: M Performed By: #### L 500.11625, L500.53551, L500.30883 ####[facility] TCDHNCOKIL4811 [place], [place] [address]Rm# [phone] CO2 23 mmol/L Normal 21-32 [facility] [place] Comment on above: Order Comment: Campu s: M Performed By: #### L 500.31339, L500.71952, L500.71285 ####[facility] JCVQGBKYKS8726 [place], [place] [address]Rw# [phone] Creatinine 0.845 mg/dL Normal 0.510-0.950 [facility] Comment on above: Order Comment: Campu s: M Result Comment: Amanda ents receiving either N-Acetylcysteine (NAC) orMetamizole prior to venipuncture, may have falsely depressedresults. Performed By: #### L 500.88944, L500.24468, L500.74076 ####[facility] ZCLJXERAIW6849 [place], [place] [address]Lf# [phone] Glucose mass conc 200 mg/dL High 70-100 [facility] Comment on above: Order Comment: Campu s: M Result Comment: 70-1 00-Normal Fasting; 701-237-Qdvfegum Fasting; greaterthan 126 on more than one result-Diabetes. ADA guidelines Performed By: #### L 500.85283, L500.62397, L500.91903 ####[facility] QXUAQYFKJY6720 [place], [place] [address]Zk# [phone] Potassium molar conc 3.9 mmol/L Normal 3.5-5.1 [facility] Comment on above: Order Comment: Campu s: M Performed By: #### L 500.35500, L500.05495, L500.34519 ####[facility] CQKWNDXYWV9318 [place], [place] [address]Wv# [phone] Sodium 139 mmol/L Normal 136-145 [facility] Comment on above: Order Comment: Campu s: M Performed By: #### L 500.05654, L500.83753, L500.65700 ####[facility] KHSMAKMTFN6630 [place], [place] [address]Pn# [phone] Urea nitrogen 17 mg/dL Normal 7-26 [facility] Comment on above: Order Comment: Campu s: M Performed By: #### L 500.34044, L500.08418, L500.28804 ####[facility] QAPRXTUVGD0406 [place], [place] [address]Tx# [phone] CBC W/DIFFon 06-16-2017 BASO ABS 0.10 K/CU MM Normal 0-0.2 [facility] [place] Comment on above: Order Comment: Campu s: M Performed By: #### L 200.05507 ####[facility] QOUQXRPOPM[address] [place], [place] [address]Ph# [phone] Basophils/100 WBC Auto (Bld) 0.6 % Normal 0-2 [facility] [place] Comment on above: Order Comment: Campu s: M Performed By: #### L 200.36058 ####[address] [address]Xq# [phone] EOS ABS 0.30 K/CU MM Normal 0-0.5 [facility] [place] Comment on above: Order Comment: Campu s: M Performed By: #### L 200.88227 ####[place] [address]82[address]Ph# [phone] Eosinophils/100 leukocytes 3.9 % Normal 0-5 [facility] [place] Comment on above: Order Comment: Campu s: M Performed By: #### L 200.22881 ####[facility] [id number] [place] [address]Ba# [phone] Erythrocyte distribution width Auto Ratio (RBC) 15.4 % High 11-14.5 [facility] [place] Comment on above: Order Comment: Campu s: M Performed By: #### L 200.52547 ####[facility] [id number] [place] [address]Eo# [phone] Erythrocytes (RBC) 0.0 % Normal Less than 1 [facility] [place] Comment on above: Order Comment: Campu s: M Performed By: #### L 200.90676 ####[facility] SFPRROECOU267[address] [place], [place] [address]Ph# [phone] Erythrocytes (RBC) 3.92 M/CU MM Normal 3.90-5.30 [facility] [place] Comment on above: Order Comment: Campu s: M Performed By: #### L 200.42533 ####[facility] NKJKPPLLMT9520 [place], [place] [address]Hj# [phone] Hematocrit (HCT) 34.5 % Low 35.0-47.0 [facility] [place] Comment on above: Order Comment: Campu s: M Performed By: #### L 200.12336 ####[place] [address]82[address]Ph# [phone] Hemoglobin mass conc (Bld) 11.4 g/dL Low 11.5-15.5 [facility] Comment on above: Order Comment: Campu s: M Performed By: #### L 200.39588 ####[place] [address]82[address]Ph# [phone] IMMATR GRAN ABS 0.00 K/CU MM Normal Less than 2 [facility] [place] Comment on above: Order Comment: Campu s: M Performed By: #### L 200.51948 ####[facility] LZEDDDQPYG[address] [place], [place] [address]Ph# [phone] IMMATURE GRAN % 0.5 % Normal Less than 2 [facility] [place] Comment on above: Order Comment: Campu s: M Performed By: #### L 200.46034 ####[facility] TARRDXNQDQ35[address] [place], [place] [address]Ph# [phone] Lymphocytes 1.90 K/CU MM Normal 0.9-4.4 [facility] [place] Comment on above: Order Comment: Campu s: M Performed By: #### L 200.60678 ####[facility] WNCGLIBVBW[address] [place], [place] [address]Ph# [phone] Lymphocytes/100 leukocytes 22.9 % Normal 20-40 [facility] [place] Comment on above: Order Comment: Campu s: M Performed By: #### L 200.71310 ####[facility] YJJABOCMID7930 [place], [place] [address]Bx# [phone] MCHC mass conc (RBC) 33.0 g/dL Normal 32.0-36.0 [facility] Comment on above: Order Comment: Campu s: M Performed By: #### L 200.94307 ####[facility] LPVWCOUJHS[address] [place], [place] [address]Ph# [phone] MCV 88.0 fL Normal 80.0-99.0 [facility] Comment on above: Order Comment: Campu s: M Performed By: #### L 200.86720 ####[place] [address]Ph# [phone] MONO ABS 0.70 K/CU MM Normal 0.1-1.1 [facility] Comment on above: Order Comment: Campu s: M Performed By: #### L 200.59865 ####[facility] BGTCEPVPDX[address] [place], [place] [address]Ph# [phone] Monocytes/100 leukocytes 8.8 % Normal 2-10 [facility] Comment on above: Order Comment: Campu s: M Performed By: #### L 200.81506 ####[facility] IGQZSBYWWD301[address] [place], [place] [address]Ph# [phone] Neutrophils 5.20 K/CU MM Normal 2.0-8.3 [facility] Comment on above: Order Comment: Campu s: M Performed By: #### L 200.01091 ####[facility] EAYONCLJXA[address] [place], [place] [address]Ph# [phone] Neutrophils/100 WBC Auto (Bld) 63.3 % Normal 45-75 [facility] Comment on above: Order Comment: Campu s: M Performed By: #### L 200.59199 ####[facility] PCTPURLLTS[address] [place], [place] [address]Ph# [phone] Platelet mean volume (PMV) 10.2 fL Normal 9.4-12.4 [facility] Comment on above: Order Comment: Campu s: M Performed By: #### L 200.19191 ####[facility] ROPVBJKUYO1941 [place], [place] [address]Lf# [phone] Platelets 203 K/CU MM Normal 150-450 [facility] Comment on above: Order Comment: Campu s: M Performed By: #### L 200.39571 ####[facility] RLDSBUIRNF7076 [place], [place] [address]Nm# [phone] WBC (Leukocytes) 8.2 K/CU MM Normal 4.5-11.0 [facility] Comment on above: Order Comment: Campu s: M Performed By: #### L 200.73136 ####[facility] KBCAHKPXJN2306 [place], [place] [address]Nr# [phone] DISCH.SUMon 06-16-2017 DISCH.[facility] Patient Name: CARMEN HARVEY [id number] [facility] Date of : [address] [place] [id number] Unit Number: [id number] Number: [id number] Summary Patient Status: DIS INoAttending Doctor: Frida Conte MDService Date: 06/16/17 1633Discharge SummaryAdmit Date06/15/17nticipated Discharge Date 06/17/17Final Dx/Problem List1. Chest painAcute2. Afib3. Diabetes4. Asthma5. CAD (coronary artery disease)6. CAD (coronary artery disease)Chronic7. AnxietyChronic8. GERD (gastroesophageal reflux disease)ChronicChief Complaint/HPIAbnormal stress testReason for AdmissionAbnormal stress testOperations/ProceduresCa rdiac catheterHospital CoursePatient was placed in the hospital for abnormal stress test, serial cardiac enzymes werenegative, patient was seen by cardiology recommended stress test which was done and it wasunremarkable, recommended to discharge patient home. Patient post heart catheter could notmove her right leg, patient had Doppler came back negative for pseudoaneurysm, thismorning she was doing fine no chest pain no shortness breath no fever chills. She wasambulating perfectly, discussed with cardiology is okay to discharge patient home.Vital SignsVital Signs (Last)ResultDate TimePulse [id number] 1428B/P123/6410 3476Cadn98.810/ 9084Cyywv7961 9226Tkqy7467 1428Pertinent Physical FindingsPhysical Exam:General: Patient is alert and oriented x3 and is in no acute respiratory distress.HEENT no eye congestion no ear discharge.Neck is supple no JVD.Lungs: Clear to auscultation, no wheezing, rales, or rhonchi.Cardiac: Irregular rhythm and rate, S1-S2 within normal limitsAbdomen: Soft, nontender, obeseExtremities: No cyanosisSkin: No rashes or breakdown.Neurologic: Cranial nerves from II-XII intact grossly.Psych normal affect.Lymphatic system, no submandibular or anterior cervical lymphadenopathy.Consults CardiologyLabs/ImagingLab 72hr (CBC/BMP Fishbone)06/16/17 1131:Whole Bld Glucose 258 H1 0717:Troponin I Less than 0.9905706/16/17 0717:[Embedded Image Not Available]Anion Gap 11, Est GFR ( Amer) Greater than 60, Est GFR (Non-Af Amer) Greater than60, BUN/Creatinine Ratio 20, Glucose 200 H, Total Calcium 8.6, Magnesium 1.9, INR 1.4 H,PT Normal Mean Secs 14.7 H, RBC 3.92, MCV 88.0, MCHC 33.0, RDW 15.4 H, MPV 10.2, ImmatureGran % (Auto) 0.5, Abs Immat Gran (auto) 0.00, Seg Neutrophils % 63.3, Lymphocytes % 22.9,Monocytes % 8.8, Eosinophils % 3.9, Basophils % 0.6, Neutrophils # 5.20, Lymphocytes #1.90, Monocytes # 0.70, Eosinophils # 0.30, Basophils # 0.10, Nucleated RBCs 0.010 0658:Whole Bld Glucose 199 H1 0600:INR Cancelled, PT Normal Mean Secs Cancelled, WBC Cancelled, RBC Cancelled, Hgb Cancelled,Hct Cancelled, MCV Cancelled, MCHC Cancelled, RDW Cancelled, Plt Count Cancelled, SegNeutrophils % Syqmcgbew67/27/17 0430:Troponin I Mqibiocyy33/27/17 0009:Troponin I Less than 0.1601506/15/172021:Whole Bld Glucose 216 H1 1916:Troponin I Less than 0.3604306/15/17 1837:INR 1.8 H, PT Normal Mean Secs 18.5 HPrescriptionsStop taking the following medications:Apixaban (Eliquis) 5 MG TABLET ORAL 2 TIMES DAILY Qty = 30Continue taking these medications:[NOVOLIN N]50 UNITS SUBCUTANEOUS 2 TIMES DAILYLosartan Potassium* (Cozaar Tab*) 100 MG VBDERW191 MILLIGRAM ORAL EVERY DAYMontelukast Sodium* (Singulair 10 MG Tablet*) 10 MG ASXJGR27 MILLIGRAM ORAL EVERY DAYLORazepam* (Ativan 0.5MG Tab*) 0.5 MG TABLET0.5 MILLIGRAM ORAL 3 TIMES DAILYTriamterene/Hctz* (Dyazide 37.5-25 Cap*) 1 EACH CAPSULE1 TABLET ORAL EVERY DAYOmeprazole (PrilOSEC CAP) 40 MG CAPSULE.DR40 MILLIGRAM ORAL EVERY DAYAtorvastatin Calcium* (Lipitor 40MG Tab*) 40 MG VWIMJP54 MILLIGRAM ORAL AT BEDTIMEFolic Acid* (Folvite 1MG Tab*) 1 MG TABLET1 MILLIGRAM ORAL EVERY DAYCalcium Carbonate/Vitamin D3* (Oscal 500/200+D Tab*) 1 EACH TABLET1 TABLET ORAL EVERY DAYAscorbic Acid* (Vitamin C 500MG Tab*) 500 MG CAPSULE.ER1,000 MILLIGRAM ORAL EVERY DAYCyanocobalamin (Vitamin B-12)* (Vitamin B-12 100MCG Tab*) 100 MCG SLVQJW124 MICROGRAM ORAL EVERY DAY[VITAMIN B6]1 TABLET ORAL QDNitroglycerin (Nitrostat 0.4MG Tablet Sl) 0.4 MG/1 BOT 31ZMEKIP9.4 MILLIGRAM SUBLINGUAL EVERY 5 MINUTES NEEDED as needed for AnginaQty = 30Sotalol HCl* (Betapace 120MG Tab*) 120 MG MORPQA442 MILLIGRAM ORAL 2 TIMES DAILYQty = 60[BIOTIN]1,000 MICROGRAM ORAL EVERY DAYPotassium Chloride (KCl) (K-Dur 20MEQ Tablet SA) 20 MEQ UDTAB20 MILLIEQUIVALENT ORAL TWICE A DAY 30MIN BEFORE MEALSQty = 60Warfarin Sodium* (Coumadin 2.5MG Tab*) 2.5 MG TABLET3.5 MILLIGRAM ORAL EVERY DAYNiacin* (Niacin Tab SA*) 1,000 MG TABLET.ER1,000 MILLIGRAM ORAL AT BEDTIMEMagnesium OXIDE* (Mag-Ox 400 MG Tab*) 400 MG ESYIW448 MILLIGRAM ORAL EVERY DAYStart taking the following new medications:Aspirin (Adult Low Strength Aspirin) 81 MG TABLET.DR81 MILLIGRAM ORAL DAILY WITH A MEALQty = 30No RefillsReferralsOrdered ReferralsFamily Medicine In One WeekFor Groups:[pcp]Cardiology Referral In One-Two WeeksFor Providers:Abelino Plasencia MD[address] [address] Condition : StableDisposition HomePhys Discharge Time Incur(Min) 25DisclaimerThis dictation was created using voice recognition software.Phonetic and/or minor grammatical errors may exist.eSign Date and TimeDCarrie prather MD Verified/Reviewed by 06/19/17 1651 [facility] Discharge Summary [facility] GFR ESTon 06-16-2017 IF AMER Greater than 60 [facility] Comment on above: Order Comment: Carolynn s: M Performed By: #### L 500.18828, L500.08934, L500.33373 ####[facility] [id number] [place], [place] [address]Qt# [phone] IF non-AFR AMER Greater than 60 [facility] Comment on above: Order Comment: Carolynn s: M Performed By: #### L 500.06140, L500.67762, L500.57969 ####[facility] [id number] [place], [place] [address]Fu# [phone] GLUCOSE METERon 06-16-2017 Glucose mass conc 274 mg/dL High 85-125 [facility] Glucose mass conc 258 mg/dL High 85-125 [facility] Glucose mass conc 199 mg/dL High 85-125 [facility]-16-2017 Magnesium 1.9 mg/dL Normal 1.6-2.6 [facility] Comment on above: Order Comment: Carolynn baumann: Alba Performed By: #### L 500.83179, L500.83728, L500.09798 ####[facility] [id number] [place], [place] [address]Qx# [phone] PROG [facility] [place] [facility] 06-16-2017 PROG [facility] Patient Name: CARMEN HARVEY [id number] [facility] Date of : [address] [place] [address] Unit Number: [id number] Number: [id number] Note-Hospitalist Patient Status: ADM INoAttending Doctor: Frida Conte MDService Date: 06/16/17 1514See AddendumChief ComplaintChief ComplaintAbnormal stress testSubjectiveS: (2 ROS minimum)Patient denied having chest pain shortness breath fever chills nausea vomiting diarrheaObjective (ROS)Nursing VitalsVital Signs (Last)ResultDate TimePulse Eu8945/27 1428B/P123/6410/27 4060Okln51.810/27 4762Wfbys2898/27 4730Ipsl1092/ 1428Physical Exam:General: Patient is alert and oriented x3 and is in no acute respiratory distress.HEENT no eye congestion no ear discharge.Neck is supple no JVD.Lungs: Clear to auscultation, no wheezing, rales, or rhonchi.Cardiac: Regular rhythm and rate, S1-S2 within normal limitsAbdomen: Soft, nontender, obeseExtremities: No cyanosisSkin: No rashes or breakdown.Neurologic: Cranial nerves from II-XII intact grossly.Psych normal affect.Lymphatic system, no submandibular or anterior cervical lymphadenopathy.Diagnostic Data:Lab 24hr (CBC/BMP Fishbone)06/16/17 1131:Whole Bld Glucose 258 H1 0717:Troponin I Less than 0.7513006/16/17 0717:[Embedded Image Not Available]Anion Gap 11, Est GFR ( Amer) Greater than 60, Est GFR (Non-Af Amer) Greater than60, BUN/Creatinine Ratio 20, Glucose 200 H, Total Calcium 8.6, Magnesium 1.9, INR 1.4 H,PT Normal Mean Secs 14.7 H, RBC 3.92, MCV 88.0, MCHC 33.0, RDW 15.4 H, MPV 10.2, ImmatureGran % (Auto) 0.5, Abs Immat Gran (auto) 0.00, Seg Neutrophils % 63.3, Lymphocytes % 22.9,Monocytes % 8.8, Eosinophils % 3.9, Basophils % 0.6, Neutrophils # 5.20, Lymphocytes #1.90, Monocytes # 0.70, Eosinophils # 0.30, Basophils # 0.10, Nucleated RBCs 0.010 0658:Whole Bld Glucose 199 H1 0600:INR Cancelled, PT Normal Mean Secs Cancelled, WBC Cancelled, RBC Cancelled, Hgb Cancelled,Hct Cancelled, MCV Cancelled, MCHC Cancelled, RDW Cancelled, Plt Count Cancelled, SegNeutrophils % Cqfsejkme90/27/17 0430:Troponin I Zzpelgopb23/27/17 0009:Troponin I Less than 0.3588206/15/17 202:Whole Bld Glucose 216 H1 1916:Troponin I Less than 0.2744906/15/17 1837:INR 1.8 H, PT Normal Mean Secs 18.5 HAssessment and PlanConclusion1. Chest painAcute2. Afib3. Diabetes4. Asthma5. CAD (coronary artery disease)6. CAD (coronary artery disease)Chronic7. AnxietyChronic8. GERD (gastroesophageal reflux disease)ChronicPlanPatient stated cardiac enzymes negative, patient would have heart catheter today, furthertreatment depends on the results of the heart catheter. Continue medical management,Cardiology is on the case.ADDENDUM: CARRIE FELIZ on 06/16/17 at 1637Cardiac: IRREGULAR rhythm and rate, S1-S2 within normal limitsDisclaimerThis dictation was created using voice recognition software.Phonetic and/or minor grammatical errors may exist.eSign Date and TimeDaoCarrie hayes MD Verified/Reviewed by 06/16/17 1637 Normal [facility] Progress Note-Hospitalist Normal [facility] PTon 06-16-2017 INR Coag RelTime (PPP) 1.4 {INR} High 0.9-1.1 [facility] Comment on above: Order Comment: Carolynn s: M Result Comment: Mario mmended PT INR therapeutic range for petroleum terminal plant operator andprophylactic therapy is 2.0 - 3.0. For heart valve andshunt patients the range is 2.5 - 3.5. Performed By: #### L 300.86930 ####[facility] [id number] [place], [place] [address]Ie# [phone] PTS 14.7 SECONDS High 9.4-12.0 [facility] Comment on above: Order Comment: Carolynn s: M Performed By: #### L 300.08999 ####[facility] [id number] [place] [address]Mv# [phone] TROPONIN Ion 06-16-2017 Troponin I.cardiac mass conc 0.015 ng/mL Normal 0.000-0.045 [facility] Comment on above: Order Comment: Jalenu s: M Performed By: #### L 550.96820 ####[facility] [id number] [place] [address]Wk# [phone] Troponin I.cardiac mass conc 0.015 ng/mL Normal 0.000-0.045 [facility] Comment on above: Order Comment: Carolynn s: M Performed By: #### L 550.94061 ####[facility] [id number] [place] [address]Jx# [phone] VLARon 06-16-2017 NON-INVASIVE ARTERIAL REPORT Normal [facility] SOFIA VASCULAR MEDSTREAMIN G REPORT -------Patient: CARMEN HARVEY [id number] Phy:MR: [id number] for Visit: POSITIVE STRESS TESTDate of Service 06/16/17Reading Physician: Rayo Del Toro, MDRight:Right groin was evaluated with color and spectral Doppler. Normalflow with in the external iliac, common femoral, proximalsuperficial femoral and profunda arteries and veins. No evidence ofa pseudoaneurysm with in the right groin area.Conclusions:No evidence of a pseudoaneurysm, arterial venous connection or ahematoma in the right groin.CC:Frida Conte MDAbbreviated Final Report. Full Report is available via link to [employer] under [facility] Image Viewer. [facility] PATIENT NAME: CARMEN HARVEY [id number] [facility] [address] [place] [facility] REC #: [id number], [place] [address] DATE: 06/15/17DISCHARGE DATE:NON-INVASIVE ARTERIAL REPORT ATTENDING PHY: Frida Conte MDElectronically Signed by: Rayo Del Toro MD Esign Date: 06/17/17 [facility] 06-15-[address] [facility] DATE OF SERVICE: 06/16/2017BRIEF DEMOGRAPHICS: This is a 71-year-old female who has some chest discomfort. Shehad nuclear [facility] done [facility] yesterday that showed moderateischemia in the distal inferolateral and inferior wall region. It was noted that shehad a previous coronary bypass graft surgery x3 vessels February 12, 2001. This was Misael to LAD, vein graft to ramus intermedius, and vein graft to the left circumflex.She has had some problems with paroxysmal atrial fibrillation. It was decided toproceed with cardiac catheterization.PROCEDURE TECHNIQUE: The right groin was prepped and draped in the usual sterilemanner. Lidocaine 2% was used as local anesthetic. The needle was removed. A6-[place] sheath was then placed in the right femoral artery. A 6-[place] JL-4catheter was then placed in the ascending aorta, which was a bit too large. Thiscatheter was then removed. A 6-[place] JL-3.5 catheter was then placed in theascending aorta. The left coronary artery was selectively cannulated and multipleviews and projections of this vessel were obtained. This catheter was thenwithdrawn. A 6-[place] Islander JR-4 catheter was then placed in the ascending aorta and itwas used to cannulate the right coronary artery and both saphenous vein grafts. Thiscatheter was then removed. A 6-[place] Islander ____ catheter was then placed in the ascendingaorta and the left internal mammary was selectively cannulated and multiple views andprojections of this vessel were obtained. This catheter was then removed. A6-[place] Islander pigtail catheter was then placed in the ascending aorta and then in the leftventricle. The left ventriculogram was done in a 30-degree COATES position, using 24 mLof contrast at 12 mL/second at 800 psi. This catheter was then withdrawn into theascending aorta as pressures were obtained. This catheter was then removed.Following this, the right femoral sheath was then removed. The StarClose device wasused to achieve hemostasis. The patient was then brought back to her room in stablecondition.CONTRAST USED: Isovue 127 mL.MEDICATIONS GIVEN: Lidocaine 2% subcutaneously, and Versed 2 mg intravenously.HEMODYNAMICS: (values are mmHg)Left ventricular end-diastolic pressure diameter pre-angiogram pre-A-wave was 5, postA-wave was 15.Left ventricular end-diastolic pressure diameter post-angiogram pre-A-wave was 10,post A-wave was 28.Left ventricular systolic pressure was 122.Aortic pressure was 122/68.Heart rate was 65 beats per minute.LEFT VENTRICULOGRAM:Left ventricle was normal size, normal wall motion, and ejection fraction of 70%. [facility] PATIENT NAME: CARMEN HARVEY [id number] [place] [facility] REC #: [id number], [place] [address] DATE: 06/15/17DISCHARGE DATE: 06/17/17CARDIAC CATH ATTENDING PHY: Carrie Feliz MDThe mitral valve was normal. There was no mitral regurgitation.CORONARY ARTERIES:1. Left main trunk: The left main trunk had a distal 30% stenosis. There is a mid70% stenosis after the first septal scrap breaker and before the first diagonal. Thefirst diagonal had mild disease at 20% of proximal mid portion.2. Ramus intermedius: The ramus intermedius had 40% to 50% proximal stenosis.3. Left circumflex artery: The left circumflex artery had an ostial of proximal 70%to 80% stenosis.4. Right coronary artery: The right coronary artery was dominant. It had mild 20%proximal mid stenosis.GRAFTS:1. ANDRADE to the LAD was patent and the distal vessel was free of significant disease.2. Saphenous vein graft to ramus intermedius was patent, distal vessel free ofsignificant disease.3. Saphenous venous graft to left posterolateral branch was patent and the distalvessel was free of significant disease.IMPRESSION:1. All 3 grafts were patent.2. Angiography with significant disease in the left anterior descending, ramusintermedius, and left circumflex, but all the grafts were patent to these vessels.3. Normal left ventricular systolic pressure, ejection fraction 70%.4. Normal left heart pressures.PLAN: Recommend medical treatment including risk factor modification. MEHDI Johnson/[id number]: 06/16/2017 15:46DT: 06/16/2017 17:29SSI File#: [id number] #: [id number]: Ann Marie Castano MD [phone] Feliz MD Verified/Revie wed by06/20/17 1127 VISHNU [facility] PATIENT NAME: CARMEN HARVEY [id number] [facility] [address] [place] MEDICAL REC #: [id number], [place] [address] DATE: 06/15/17DISCHARGE DATE: 06/17/17CARDIAC CATH ATTENDING PHY: Carrie Feliz MD [facility] CCCASEon 06-15-2017 [facility] Directions to brittani w CARDIAC END OF CASE REPORT in a PDF formatTo view the Cardiac END OF CASE reportyou must go to Clinical Review (PWM/Physician Desktop) and- Select the patient- Select the Vist the report is on- Click the Globe on the bottom left and the PDF report will launch(PDF's can't be viewed in Business Lab directly)\\[facility].Embue\Case_Reports\[id number].pdf [facility] Erna CRon 06-15-2017 CR DATE OF CONSULTATION : 06/15/2017REASON FOR CONSULTATION: Chest pain an abnormal stress test.HISTORY OF PRESENT ILLNESS: This is a 71-year-old female with a history of previouscoronary artery bypass graft surgery, hypertension, diabetes mellitus and paroxysmalatrial fibrillation who now presents for recurrent complaints of fluttering andmidsternal chest pressure. The patient first started having cardiac problems back [id number]. She had exertional chest pressure and shortness of breath and a very abnormaltreadmill. She was referred for a cardiac catheterization. She was found to havesignificant disease of the left anterior descending and left circumflex artery. Thepatient had normal left ventricular systolic function. The patient subsequentlyunderwent coronary artery bypass graft surgery x3 vessels on February 12, 2001. Thisincluded a ANDRADE to the LAD, a vein graft to the ramus intermedius and a vein graft tothe left circumflex artery.The patient did well until 2001, when she had additional chest burning and [facility]. She was recommended for another catheterization. Atthat time, it felt like a hot record filing clerk her back. A cardiac catheterization onSept2001 showed the patient's grafts to be patent. The right coronaryartery had mild disease. The patient had normal aortic rim with no aorticinsufficiency. The patient was treated medically.In 2005, she subsequently had additional chest pressure on and off. She had anadenosine Myoview that showed mild to moderate reversible ischemia of the mid anddistal anterolateral wall. The patient subsequently underwent a cardiaccatheterization. At that time, it did show ANDRADE to the LAD and a saphenous venousgraft to ramus intermedius and a saphenous venous graft to the posterolateral. Theywere all patent. The patient had normal left ventricular systolic function at thattime. Her chest pain was felt to be related to costochondritis. She continued tohave some mild chest discomfort.In July 2007, her Cardiolite images showed no evidence of ischemia and ejectionfraction of 68%. Chest burning appeared to be resolved. She had additional chestdiscomfort in November 2007. She subsequently had nitroglycerin, GI cocktail andPhenergan that resolved the chest pain. The patient underwent another adenosineMyoview on December 13, 2007 - a reversible defect in the distal lateral wall,suggestive of possible ischemia. The patient also had a fixed defect in the inferiorand inferolateral wall, consistent with soft tissue degeneration, ejection fractionof 55%. The patient subsequently underwent a cardiac catheterization on November that showed all grafts to be patent. She had normal left ventricular systolicfunction, but she had mild disease of the right coronary artery. She was treatedmedically. Chest pain was thought to be due to gastroesophageal reflux. She had aLexiscan, nuclear, in July 2009 that showed inferolateral attenuation artifact,otherwise normal. Ejection fraction of 72%. The patient was treated medically and [facility] PATIENT NAME: CARMEN HARVEY [id number] [facility] [address] [place] MEDICAL REC #: [id number], [place] [address] DATE: 06/15/17DISCHARGE DATE:CONSULTATION REPORT ATTENDING PHY: Frida Conte MDsubsequently discharged.She has had a number of other stress tests. One in July 2010 showed no evidenceof ischemia. Ejection fraction was 59%, but it was felt to be more like 65%. Herchest pain was thought to be due to costochondritis and she was discharged. She wasreadmitted in March 2011 for chest pain. She had a Lexiscan, nuclear, that showedinferolateral attenuation artifact with ejection fraction of 67%. The patient wasdischarged, as her chest pain was thought to be due to costochondritis.On November 24, 2013, she was admitted for chest pain as well as newly-documented atrialfibrillation. She subsequently had an echocardiogram on July 28, 2014 that showednormal left ventricular systolic function, mild mitral annular calcification, leftatrial enlargement. A Lexiscan, nuclear, showed hyperdynamic left ventricularsystolic pressure, ejection fraction 82%. She was started on sotalol and Eliquis.She was subsequently discharged.She returned for additional chest pressure anteriorly across the chest. [facility] She subsequently underwent another cardiaccatheterization on July 31, 2014. This showed the ANDRADE to the LAD to be patent.The saphenous venous graft to ramus intermedius and saphenous venous graft to theposterolateral were found to be patent. The patient had normal left ventricularsystolic function. The patient was treated medically. She was doing relativelywell, but was admitted with palpitations in October 2014 and that was uneventful. Thepatient did have recurrent paroxysmal atrial fibrillation August 11, , inwhich the patient converted spontaneously at home. She was hospitalized May 25 [facility] with atrial fibrillation that converted spontaneously tosinus rhythm. She had some diarrhea at that time and low potassium. It was decidedat that time to just leave her alone.The patient was doing well until yesterday. She felt some fluttering at about 2:00P.M. This lasted until about 8:30. She also had some midsternal chest pressure,onset 4:00 P.M., that resolved by 11:00 P.M. During that chest discomfort, she wentto [facility]. She had a Lexiscan nuclear done today. She wasthought to have atypical chest discomfort during the Lexiscan infusion. The nuclearimages were read as showing a small area of mild ischemia in the distal inferolateraland inferior region. The patient was also felt to be in sinus rhythm when she wasthere, despite still having the flutter feeling. [facility] 1.8 yesterday and 1.9 today. Her potassium yesterday was 3.5. Today, itis 3.7. The chest discomfort did resolve.She was shortness of breath yesterday. No definite lightheadedness or dizziness. Nopalpitations or syncope.PAST SURGICAL HISTORY: Please see above for CABG. She had a left shoulder surgerydone about 9 years ago. She has residual problems from that. She has had a totalabdominal hysterectomy, cholecystectomy, multiple dilation and curettages, carpal [facility] PATIENT NAME: CARMEN HARVEY [id number] [facility] [address] [place] MEDICAL REC #: [id number], [place] [address] DATE: 06/15/17DISCHARGE DATE:CONSULTATION REPORT ATTENDING PHY: Frida Conteunnlukas surgery, breast biopsy that was benign. She had a left humeral surgery, November2006. She had manipulation under anesthesia on November 23, 2006. On July 26, 2006,she had a comminuted 3-part left proximal humerus fracture. She had bilateralpartial esophagectomy in 1975, cholecystectomy in 1975.PAST MEDICAL HISTORY: Notable for hypertension, diabetes, hyperlipidemia,gastroesopha geal reflux disease, hiatal hernia, asthma, obstructive sleep apnea. Kathyo may be felt to have some Gilbert's. The patient also has nephrolithiasis, rightkidney stone, [address], April 24, 2012. She also may have some pancreaticdisorder, as well, as well as diverticulitis. The patient has obstructive sleepapnea.MEDICATIONS AT HOME:1. Biotin 2.5 mg daily.2. Coumadin as directed, but about 2-3.5 mg daily.3. Enteric-coated aspirin 81 mg daily.4. Folic acid 0.8 mg daily.5. Klor-Con 20 mEq p.o. b.i.d.6. Lorazepam 0.5 mg daily.7. Losartan 100 mg p.o. daily.8. Magnesium oxide 400 mg p.o. daily.9. Singulair 10 mg daily.10. Niacin 500 mg p.o. b.i.d.11. Novolin N b.i.d.12. Novolin R per sliding-scale.13. Omeprazole 40 mg daily.14. Proventil 2 puffs q.i.d.15. Sotalol AF 120 mg daily.16. Dyazide 1 p.o. daily.17. Vitamin C daily.ALLERGIES: IV DYE. CODEINE CAUSES PRURITUS. MACRODANTIN, PRURITUS AND HIVES.MORPHINE SULFATE, PRURITUS AND HIVES. IODINE CAUSES NAUSEA, VOMITING AND HIVES.LISINOPRIL CAUSES COUGH. ALLERGIES ARE TO TRAMADOL AND NORCO.FAMILY HISTORY: Her father has diabetes. Her mother at age 66. She hadcoronary artery disease, myocardial infarction, CABG, and diabetes mellitus. Son hasatrial fibrillation.SOCIAL HISTORY: She is , has 3 children. 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 Former cigarette smoker. She smoked 1 pack per week for 26 years, quitin 1986.REVIEW OF SYSTEMS: Other 10-point review of systems other than above appear to benegative. [facility] PATIENT NAME: CARMEN HARVEY [id number] [facility] [address] [place] MEDICAL REC #: [id number], [place] [address] DATE: 06/15/17DISCHARGE DATE:CONSULTATION REPORT ATTENDING PHY: Frida Conte MDPHYSICAL EXAMINATION:General: The patient is an alert female, in no acute distress.Vital Signs: Her blood pressure is 129/64, heart rate 71.HEENT: Grossly normal.Neck: There is no thyromegaly. No carotid bruit.Lungs: Appear to be clear.Heart: Regular rate and rhythm. S1, S2 positive. Positive S4. No definite S3. Nomurmurs heard. PMI is not displaced.Abdomen: Soft, nontender. There are no masses.Extremities: Trace bilateral pitting edema.Skin: Warm and dry.LABORATORY WORK: EKG shows sinus rhythm, first-degree AV block. Poor R-waveprogression. Nonspecific ST-T wave changes. Other laboratory work done May a sodium of 134, potassium 3.7, chloride 102, CO2 of 24.3, BUN 26, creatinine 1,glucose 192. Total protein 6.9. Total bilirubin 1.1. Albumin 3.8. Today, sodiumis 137, potassium 3.5, chloride 104, CO2 of 24, BUN 26, creatinine 0.9, glucose 117.INR yesterday was 1.8. Today, it is 1.9. Magnesium yesterday was 1.5. Today, is3.2. White blood cell count yesterday was 10.8 thousand, hemoglobin 12.9, uzpwrboung92.4, platelets 231,000.IMPRESSION:1. A 71-year-old female with some unexplained chest discomfort. She started withpalpitations and then midsternal chest pressure. This was continued for 7 hours.The pressure is bothersome, but the duration is long for angina. Nuclear study donetoday at [facility] shows a small area of mild ischemia in thedistal inferolateral and inferior region. Ejection fraction is 71%. There isabnormal septal wall motion.2. Coronary artery disease. The patient is status post coronary artery bypassgrafting x3 vessels on February 12, 2001. That is left internal mammary artery to theleft anterior descending, vein graft to the ramus intermedius and vein graft to theleft circumflex. The patient has been doing fairly well. The patient has hadmultiple cardiac catheterization. The last cardiac catheterization was July. This showed all the grafts to be patent. There was no significant disease inthe right coronary artery. There was normal left ventricular systolic function. Atthat time, I thought the patient's chest pain was due to costochondritis.3. Paroxysmal atrial fibrillation. It was documented initially July 2004. Bahman may have had an episode May 12, 2017. She converted spontaneously at homeand she was hospitalized at [facility] on May 25, 2017. Sheconverted spontaneously. At that time, she had diarrhea and low potassium. Wedecided to leave her on sotalol.4. Type 2 diabetes mellitus.5. Hypertension.6. Hyperlipidemia.7. She has a history of diverticulitis.8. History of nephrolithiasis. [facility] PATIENT NAME: CARMEN HARVEY [id number] [facility] [address] [place] [facility] REC #: [id number], [place] [address] DATE: 06/15/17DISCHARGE DATE:CONSULTATION REPORT ATTENDING PHY: Frida Conte MD9. Obesity.10. History of obstructive sleep apnea, on continuous positive airway pressure.11. History of gastroesophageal reflux disease.12. History of asthma.PLAN:1. Will give low-dose vitamin K at 2 mg IV. Will check INR today and tomorrow.2. Will premedicate with prednisone 20 mg p.o. t.i.d. Otherwise, I will giveBenadryl.3. Will recheck laboratory work tomorrow, including BMP, INR, magnesium and CBC.Thank you very much for allowing me to participate in the medical care of thispatient. Abelino Plasencia MDJT/[id number]: 06/15/2017 18:44DT: 06/15/2017 20:57SSI File#: [id number] #: [id number]: Ann Marie Castano MD [phone]/Rev iewed by06/17/17 1316 TSAJO [facility] PATIENT NAME: CARMEN HARVEYRosa Isela [facility] [place] MEDICAL REC #: [id number], [place] [address] DATE: 06/15/17DISCHARGE DATE:CONSULTATION REPORT ATTENDING PHY: Frida Conte MD [facility] GLUCOSE METERon 06-15-2017 Glucose mass conc 216 mg/dL High 85-125 [facility] HP.IMS.ADMon 06-15-2017 [place] [facility] [place] [facility] Patient Name: CARMEN HARVEY [facility] Date of : [address] [address] Unit Number: [id number] Number: [id number] Patient Status: ADM INAttending Doctor: Frida Conte MDService Date: 06/15/171903GRBRAYDON WHITLOCK 06/15/171903:History of Present IllnessChief Complaint/Present Illness:chest painHistory of Present IllnessThis is a pleasant 71 year old female, patient of Dr. Plasencia of cardiology, withhistory of afib, CAD, on coumadin who [facility] withcomplaints of chest pain yesterday.states she was at work sitting at her desk when shenoted midsternal chest pressure 8 out of 10, also felt fluttering in her chest, she deniedany diaphoresis or nausea with this. She denied any shortness of breath, she does admitshe's had increased fatigue. She states when she went home her heart rate stabilized. [facility]was [facility] and had a stress test which was found to bepositive. She was then transferred to [facility] for a heart catheter. We have been asked toadmit. additional history includes allergy to IVP dye, Dr. Potter aware and is medicatingprior to heart catheter. She has history of diabetes, asthma, sleep apnea, hypertension,hyperlipidemia . She is seen and examined on the floor, she denies any current chest pain.States she is hungry. She denies any recent fever, or chills but admits she has had acough, states she is recovering from a recent cold over the last week.Past Medical/Surgical HxPast Medical HistoryCAD, hypertension, hyperlipidemia, diabetes, GERD, sleep apnea, asthmaPast Surgical HistoryShe has had a CABG, cholecystectomy, left shoulder surgery, right breast surgery, leftbreast lesion removed, states no cancer.Family/Social HistoryFamily HistoryMOTHER, , Age 60+; Cause: Aneurysm (arteriovenous) of coronary vessels.FH: CAD (coronary artery disease)FHx: diabetes mellitusFATHER (CHF ALSO). , Age 60+; Cause: COPD (chronic obstructive pulmonary disease).FH: CAD (coronary artery disease)FHx: diabetes mellitusHeart attackSISTER (UNKNOWN). Age 60+.SISTER (HX OF CERVICAL CANCER). Age 60+.SISTER (UNKNOWN HEALTH ISSUES). Age 60+.Relation not specified for:FHx: renal failureSocial HxShe is , works in [employer], former smoker but quit in 1986. Prior smoked forabout 26 years of pack per week. She denies any alcohol or illicit drug useAdvance DirectivesAdvance Directives Full CodeAllergies/Home MedicationsAllergiesCoded Allergies:CODEINE (06/22/10)IODINE (06/22/10)MORPHINE (06/22/10)NITROFURAN ANALOGUES (06/22/10)NITROFURANTOIN (06/22/10)Review of SystemsROS: OtherConstitutional - Denies any fever, chills, metastases to increased fatigueEyes - Denies any blurred vision, double vision.HEENT -Denies any difficulty hearing, difficulty swallowing, headaches, or sore throat.Cardiovascular -states started having chest pain while at work yesterday 8 out of 10midsternal, not associated with shortness of breath, nausea or diaphoresis. Currentlychest pain-free.Respiratory - Denies any , hemoptysis, shortness of breath. Does admit to a coughGastrointestinal - Denies any abdominal pain, diarrhea, nausea, or vomiting.Genitourinary - Denies any dysuria, hematuria.Skin - Denies any jaundice, rash.Neurologic - Denies any blurred vision, double vision, slurred speech, headaches, ornumbness and tingling.Psychiatric -metastases to some anxietyPhysical ExamVital SignsVital Signs (Last)ResultDate TimePulse [id number]/ [id number]/P131/[id number]/ 9774Irqy88.410/ [id number]/ [id number] 1907Previous lab work from hospital was reviewed, chest x-ray reviewed, EKG reviewed, previousHandP's on chart reviewed.Constitutional - Patient appears well groomed, appropriate, alert.Eyes - Anicteric, normal conjunctiva.ENT - Head normocephalic,atraumatic. Oral mucosa pink and moist. Neck supple, tracheamidline.Cardiovascul ar - Heart is regular rate and rhythm. No gallops, rubs, murmurs noted. Noevidence of carotid bruit heard.Respiratory - nonlabored, regular, even. Clear to auscultation.Skin - Appears warm, dry, intact.Gastrointestinal - Abdomen soft, bowel sounds present, nontender. No guarding orrebounding noted.Genitourinary - Not examinedLymph - No gross lymphadenopathy noted.Musculoskeletal - Grasps appear moderate in strength and equal. Pulses are +2. No edemanoted.Neurologic - Patient is alert and oriented and appropriate 3. Speech is clear. No facialdroop noted.Psychiatric - Patient appears calm, no anxiety or depression noted.Conclusion / PlanConclusion1. Chest painAcute2. Afib3. Diabetes4. Asthma5. CAD (coronary artery disease)6. AnxietyChronic7. GERD (gastroesophageal reflux disease)ChronicPlanChest pain, rule out ACS, to have heart catheterization in a.m. Cardiology consulted, hasabnormal stress noted. We will cycle troponins, EKG for further chest pain occurrences,nitroglycerin sublingual as needed. Patient received vitamin K per cardiology to reverseINR.Atrial fibrillation, Coumadin to be on hold for upcoming heart catheter, currently ratecontrolled, home meds to be resumed, cardiology consultedCAD, were resume home medicationsDiabetes, we'll have NovoLog low-dose sliding scale with before meals at bedtime bloodsugar checks. Resume home meds when ableAsthma, resume home meds as neededGERD, home meds to be resumedanxiety- home meds to be resumed.Collaborating PhysicianFrida Conte MDExpected Stay More than 2 daysFRIDA CONTE 06/16/172:Allergies/Home MedicationsHome MedicationsAscorbic Acid* (Vitamin C 500MG Tab*) 500 MG CAPSULE.ER 1,000 MG PO QDAY, Ref 0 (Reported)Entered as Reported by JANNY VAIL on 07/26/14302Last Action: Held on 06/16/17106 by ABELINO MASONAtorvastatin Calcium* (Lipitor 40MG Tab*) 40 MG TABLET 40 MG PO QHS, Ref 0 (Reported)Entered as Reported by JANNY VAIL on 07/26/14254Last Action: Held on 06/16/17104 by ABELINO MASON[BIOTIN] 1,000 MCG PO DAILY, Ref 0 (Reported)Entered as Reported by SHAMIR COTE on 11/03/141934Last Action: Held on 06/16/17107 by ABELINO MASONCalcium Carbonate/Vitamin D3* (Oscal 500/200+D Tab*) 1 EACH TABLET 1 TAB PO QDAY, Ref 0(Reported)Entered as Reported by JANNY VAIL on 07/26/14301Last Action: Continued on 06/16/17103 by ABELINO MASONCyanocobalamin (Vitamin B-12)* (Vitamin B-12 100MCG Tab*) 100 MCG TABLET 100 MCG PO QDAY, Ref 0 (Reported)Entered as Reported by JANNY VAIL on 07/26/14302Las Action: Continued on 06/16/17103 by ABELINO MASONFolic Acid* (Folvite 1MG Tab*) 1 MG TABLET 1 MG PO QDAY, Ref 0 (Reported)Entered as Reported by JANNY VAIL on 07/26/14256Last Action: Continued on 06/16/17103 by ABELINO MASONLORazepam* (Ativan 0.5MG Tab*) 0.5 MG TABLET 0.5 MG PO TID, Ref 0 (Reported)Entered as Reported by JANNY VAIL on 07/26/14 Action: Continued on 06/16/17103 by ABELINO MASONLosartan Potassium* (Cozaar Tab*) 100 MG TABLET 100 MG PO QDAY, Ref 0 (Reported)Entered as Reported by JANNY VAIL on 07/26/14251Last Action: Held on 06/16/17104 by ABELINO MASONMagnesium OXIDE* (Mag-Ox 400 MG Tab*) 400 MG UDTAB 400 MG PO QDAY, Ref 0 (Reported)Entered as Reported by TRINH DIXON II on 06/15/171826Last Action: Held on 06/16/17105 by ABELINO MASONMontelukast Sodium* (Singulair 10 MG Tablet*) 10 MG TABLET 10 MG PO QDAY, Ref 0 (Reported)Entered as Reported by JANNY VAIL on 07/26/14251Last Action: Continued on 06/16/17103 by ABELINO MASONNiacin* (Niacin Tab SA*) 1,000 MG TABLET.ER 1,000 MG PO QHS, Ref 0 (Reported)Entered as Reported by TRINH DIXON II on 06/15/171824Last Action: Held on 06/16/17104 by ABELINO MASONNitroglycerin (Nitrostat 0.4MG Tablet Sl) 0.4 MG/1 BOT 25TABBOT 0.4 MG SL Q5MPRN PRNAngina #30 BOT, Ref 0Last Action: Held on 06/16/17103 by ABELINO MASON[NOVOLIN N] 50 UNITS SUBQ BID, Ref 0 (Reported)Entered as Reported by JANNY VAIL on 07/26/14249Last Action: Held on 06/16/17107 by ABELINO MASONOmeprazole (PrilOSEC CAP) 40 MG CAPSULE.DR 40 MG PO QDAY, Ref 0 (Reported)Entered as Reported by JANNY VAIL on 07/26/14252Last Action: Continued on 06/16/17106 by ABELINO MASONPotassium Chloride (KCl) (K-Dur 20MEQ Tablet SA) 20 MEQ UDTAB 20 MEQ PO BID.30AC #60UDTAB, Ref 3Prescribed by ABELINO PLASENCIA on 11/04/14Last Action: Held on 06/16/17105 by YANI MASONotalol HCl* (Betapace 120MG Tab*) 120 MG TABLET 120 MG PO BID@0700,1900 #60 TAB, Ref 11Last Action: Held on 06/16/17104 by ABELINO MASONTriamterene/Hctz* (Dyazide 37.5-25 Cap*) 1 EACH CAPSULE 1 TAB PO QDAY, Ref 0 (Reported)Entered as Reported by JANNY VAIL on 07/26/14252Last Action: Reviewed on 06/15/171827 by TRINH DIXON II[VITAMIN B6] 1 TAB PO QD, Ref 0 (Reported)Entered as Reported by JANNY VAIL on 07/26/14303Last Action: Held on 06/16/17107 by ABELINO MASONWarfarin Sodium* (Coumadin 2.5MG Tab*) 2.5 MG TABLET 3.5 MG PO QDAY, Ref 0 (Reported)Entered as Reported by TRINH DIXON II on 06/15/171823Last Action: Held on 06/16/17103 by Lovely MASON MedicationsApixaban (Eliquis) 5 MG TABLET 5 MG PO BID #30 TAB, Ref 0Discontinued reason: DC By PhysicianLast Action: Discontinued on 06/15/171822 by TRINH DIXON II, LMagnesium Chloride* (Slow-Mag 64MG Tablet SA*) 64 MG TAB 64 MG PO BID #60, Ref 11Discontinued reason: Change in Dose/StrengthLast Action: Discontinued on 06/15/171826 by TRINH DIXON II LNiacin* (Niacin Tab SA*) 1,000 MG TABLET.ER 2,000 MG PO QHS, Ref 0 (Reported)Discontinued reason: Change in Dose/StrengthLast Action: Discontinued on 06/15/171824 by TRINH DIXON II LPhysician AttestationStatement of AttestationI confirm that I have evaluated the patient, reviewed the history and physical,medications, diagnostic results, physical exam, assessment and plan of care of thepatient.DisclaimerThis dictation was created using voice recognition software.Phonetic and/or minor grammatical errors may exist.eSign Date and TimeHalFrida campbell MD Verified/Reviewed by 06/16/17 0403GBraydon parikh CNVerified/Reviewed by 06/15/17 1914 Normal [facility] PTon 06-15-2017 INR Coag RelTime (PPP) 1.8 {INR} High 0.9-1.1 [facility] Comment on above: Order Comment: Carolynn s: M Result Comment: Mario mmended PT INR therapeutic range for usp andprophylactic therapy is 2.0 - 3.0. For heart valve andshunt patients the range is 2.5 - 3.5. Performed By: #### L [id number] ####[facility] [id number] [place], [place] [address]Ra# [phone] PTS 18.5 SECONDS High 9.4-12.0 [facility] Comment on above: Order Comment: Carolynn s: M Performed By: #### L [id number] ####[facility] [id number] [place] [address]Jt# [phone] TROPONIN Ion 06-15-2017 Troponin I.cardiac mass conc 0.015 ng/mL Normal 0.000-0.045 [facility] Comment on above: Order Comment: Carolynn s: M Performed By: #### L [id number] ####[facility] [id number] [place], [place] [address]Bp# [phone] Vital Signs Date Time Vital Sign Value Performing Clinician Key wagner 05-05-2025 13:48-0400 Body height 149.[address] Doroteo Lobo MD Work Phone: [facility] 05-05-2025 13:48-0400 Body mass index (BMI) [Ratio] 34.9 kg/m2 Dr. Doroteo Lobo MD Work Phone: [facility] 05-05-2025 13:48-0400 Body temperature 97.9 [degF] Dr. Doroteo Lobo MD Work Phone: [facility] 05-05-2025 13:48-0400 Body weight 78.[address] Doroteo Lobo MD Work Phone: [facility] 05-05-2025 13:48-0400 Diastolic blood pressure 73 mm[Hg] Dr. Doroteo Lobo MD Work Phone: [facility] 05-05-2025 13:48-0400 Heart rate 78 /min Dr. Doroteo Lobo MD Work Phone: [facility] 05-05-2025 13:48-0400 Respiratory rate 18 /min Dr. Doroteo Lobo MD Work Phone: [facility] 05-05-2025 13:48-0400 SaO2% (BldA) [Mass fraction] 98 % Dr. Doroteo Lobo MD Work Phone: [facility] 05-05-2025 13:48-0400 Systolic blood pressure 125 mm[Hg] Dr. Doroteo Lobo MD Work Phone: [facility] 06-23-2023 11:34-0400 Body temperature 97.3 [degF] Dr. Ann Marie Castano Work Phone: [facility] 06-23-2023 11:34-0400 Diastolic blood pressure 54 mm[Hg] Dr. Ann Marie Castano Work Phone: [facility] 06-23-2023 11:34-0400 Heart rate 72 /min Dr. Ann Marie Castano Work Phone: [facility] 06-23-2023 11:34-0400 Respiratory rate 16 /min Dr. Ann Marie Castano Work Phone: [facility] 06-23-2023 11:34-0400 SaO2% (BldA) [Mass fraction] 96 % Dr. Ann Marie Castano Work Phone: [facility] 06-23-2023 11:34-0400 Systolic blood pressure 106 mm[Hg] Dr. Ann Marie Castano Work Phone: [facility] 06-23-2023 08:36-0400 Body height 149.[address] Ann Marie Castano Work Phone: [facility] 06-23-2023 08:36-0400 Body mass index (BMI) [Ratio] 36.9 kg/m2 Dr. Ann Marie Castano Work Phone: [facility] 06-23-2023 08:36-0400 Body weight [address] Ann Marie Castano Work Phone: [facility] 04-25-2023 14:31-0400 Body mass index (BMI) [Ratio] 38.4 kg/m2 Dr. Ann Marie Castano Work Phone: [facility] 04-25-2023 14:31-0400 Body weight 86.[address] Ann Marie Castano Work Phone: [facility] 04-25-2023 14:31-0400 Diastolic blood pressure 74 mm[Hg] Dr. Ann Marie Castano Work Phone: [facility] 04-25-2023 14:31-0400 Heart rate 85 /min Dr. Ann Marie Castano Work Phone: [facility] 04-25-2023 14:31-0400 Respiratory rate 16 /min Dr. Ann Marie Castano Work Phone: [facility] 04-25-2023 14:31-0400 SaO2% (BldA) [Mass fraction] 95 % Dr. Ann Marie Castano Work Phone: [facility] 04-25-2023 14:31-0400 Systolic blood pressure 131 mm[Hg] Dr. Ann Marie Castano Work Phone: [facility] Encounters Encounter Date Encounter Type Care Provider Facility Start: 06-05-2025 ambulatory Jose Friend Facility :[facility] Start: 06-02-2025 End: 06-02-2025 ambulatory GAIL JOSHUA [facility] Start: 05-05-2025 End: 05-05-2025 Patient encounter procedure Monica CORONADOC [facility] Work Phone: Start: 05-05-2025 End: 05-05-[address] Doroteo Lobo MD Work Phone: -[facility] Start: 04-09-2025 End: 04-09-2025 Emergency department patient visit FACUNDO TURNER SOLEDAD [facility] Start: 04-07-2025 End: 04-07-2025 Emergency department patient visit SARIKA BENITEZ [facility] Start: 02-19-2025 End: 02-19-2025 ambulatory ANN MARIE TURNER [facility] Start: 01-15-2025 End: 01-15-2025 [facility] Start: 01-15-2025 End: 01-15-2025 ambulatory ANN MARIE TURNER [facility] Start: 12-08-2024 End: 12-09-2024 Evaluation and management of inpatient TIRSO BRANCH [facility] Start: 11-14-2024 ambulatory ANN MARIE CASTANO [facility] Start: 08-22-2024 End: 08-22-2024 ambulatory RALEIGH JHAVERI [facility] Start: 06-13-2024 End: 06-13-2024 ambulatory ANN MARIE CASTANO Barrie [facility] Start: 04-02-2024 Documentation procedure Mammography Coordinator [facility] Start: 04-02-2024 Letter encounter Mammography Coordinator [facility] Start: 04-01-2024 End: 04-01-2024 Subsequent hospital visit by physician Screen Mammo [facility] Start: 06-23-2023 Non-patient / Non-visit Dr. Ann Marie Castano Work Phone: [facility] Start: 06-23-2023 End: 06-23-2023 Admission to same day surgery center Dr. Ann Marie Castano Work Phone: [facility] Work Phone: Start: 06-23-2023 End: 06-23-[address] Ann Marie Castano Work Phone: [facility] Work Phone: Start: 04-25-2023 End: 04-25-[address] Ann Marie Castano Work Phone: [facility] Work Phone: Start: 03-03-2023 Documentation procedure Mammography Coordinator [facility] Start: 03-03-2023 Letter encounter Mammography Coordinator [facility] Start: 03-02-2023 End: 03-02-2023 Subsequent hospital visit by physician Screen Mammo [facility] Start: 01-08-2022 Documentation procedure Mammography Coordinator [facility] Start: 01-08-2022 Letter encounter Mammography Coordinator [facility] Start: 01-07-2022 End: 01-07-2022 Subsequent hospital visit by physician Screen Mammo [facility] Start: 06-15-2017 End: 06-17-2017 Evaluation and management of inpatient Ann Marie Castano Facility:[facility] Procedures Date Procedure Procedure Detail Performing Clinician Start: 04-09-2025 Urinalysis RALEIGH JHAVERI Comment on above: Result Comment: URINALYSIS Performed By: #### [id number] #### [facility],[address] [place] [address] Start: 04-07-2025 Urinalysis RALEIGH ALICEAVAIBHAVROBINCheng Comment on above: Result Comment: CORRECTED REPORT URINALYSIS Performed By: #### 2 [id number] #### [facility],[address] [place] [address] Start: 06-23-[address] Ann Marie Castano Work Phone: Start: 03-02-2023 Screening digital breast tomosynthesis bi [facility] Start: 07-03-2015 Colonoscopy Screen [facility] H/O: hysterectomy Hx of hysterectomy Dr. Ann Marie Castano Work Phone: Comment on above: partial- 1979 H/O: surgery History of surge ry on arm Dr. Ann Marie Castano Work Phone: Comment on above: Left arm- 2006 H/O: tubal ligation Hx of tubal ligation Dr. Ann Marie Castano Work Phone: Comment on above: 1975 History of cholecystectomy Hx of cholecystectomy Dr. Ann Marie Castano Work Phone: Comment on above: 1975 History of coronary artery bypass grafting Hx of CABG Dr. Ann Marie Castano Work Phone: Comment on above: - 2000 Plan of Treatment Date Care Activity Detail Author Start: 01-20-2026 DIABETES SCREEN DIABETES SCREEN [facility] Start: 01-20-2026 Diabetes Screening Diabetes Screening [facility] Start: 07-03-2025 Colonoscopy COLONOSCOPY [facility] Start: 07-03-2025 COLORECTAL CANCER SCREENING COLORECTAL CANCER SCREENING [facility] Start: 11-09-2024 DIABETES SCREEN DIABETES SCREEN [facility] Start: 04-21-2024 Influenza vaccination Influenza Vaccine (#1) [facility] Start: 08-21-2023 Advance Directive Discussion Advance Directive Discussion [facility] Start: 06-23-2023 Patient discharge [facility] Start: 04-21-2023 Covid-19 Vaccine () Covid-19 Vaccine ( season) [facility] Start: 04-21-2023 Influenza vaccination [facility] Start: 08-21-2022 ADVANCE DIRECTIVE DISCUSSION ADVANCE DIRECTIVE DISCUSSION [facility] Start: 08-21-2022 DEPRESSION ASSESSMENT DEPRESSION ASSESSMENT [facility] Start: 12-09-2021 COVID-19 VACCINE (4 - Booster for Moderna series) COVID-19 VACCINE (4 - Booster for Moderna series) [facility] Start: 10-05-2021 COVID-19 VACCINE (4 - Moderna series) COVID-19 VACCINE (4 - Moderna series) [facility] Start: 08-21-2021 ADVANCE DIRECTIVE DISCUSSION ADVANCE DIRECTIVE DISCUSSION [facility] Start: 02-28-2017 Pneumococcal Vaccine: 65+ (2 of 2 - PPSV23 or PCV20) Pneumococcal Vaccine: 65+ (2 of 2 - PPSV23 or PCV20) [facility] Start: 2011 BONE DENSITY BONE DENSITY [facility] Start: 2011 Bone Density Screening Bone Density Screening [facility] Start: 2011 Pneumococcal Vaccine: 65+ (1 - PCV) Pneumococcal Vaccine: 65+ (1 - PCV) [facility] Start: 2011 PNEUMOCOCCAL: 65+ (1 - PCV) PNEUMOCOCCAL: 65+ (1 - PCV) [facility] Start: 2011 PNEUMOVAX AGE 65 AND OVER WITH 5YR LOOKBACK (#1) PNEUMOVAX AGE 65 AND OVER WITH 5YR LOOKBACK (#1) [facility] Start: 2011 Screening for osteoporosis Bone Density Screening [facility] Start: 2006 RSV Vaccine (1 - 1-dose 60+ series) RSV Vaccine (1 - 1-dose 60+ series) [facility] Start: 1996 SHINGRIX VACCINE (1 of 2) SHINGRIX VACCINE (1 of 2) [facility] Start: 1991 COLOGUARD (FIT-DNA) COLOGUARD (FIT-DNA) [facility] Start: [address] COLONOGRAPHY [facility] Start: 1991 FECAL OCCULT BLOOD FECAL OCCULT BLOOD [facility] Start: 1991 LIPID SCREEN LIPID SCREEN [facility] Start: 1991 SIGMOIDOSCOPY SIGMOIDOSCOPY [facility] Start: 1965 Urine microalbumin profile [facility] Start: 1964 Anxiety Screening Anxiety Screening [facility] Start: 1964 Depression Screening Depression Screening [facility] Start: 1964 HEPATITIS C SCREENING HEPATITIS C SCREENING [facility] Start: 1964 Hepatitis C screening Hepatitis C Screening [facility] Start: 1958 Adult depression screening assessment DEPRESSION SCREENING [facility] Patient referral [facility] Work Phone: Prothrombin time [facility] Immunizations Immunization Date Immunization Notes Care Provider Fa cili 05-29-2023 influenza virus vacc ine, unspecified formulation Screen [facility] 07-04-2022 influenza virus vacc ine, unspecified formulation Screen [facility] Payers Date Payer Category Payer Self-pay [id number] 2025 Medicare [id number] 2025 Unknown [id number] 2019 Unknown MMO MMO MEDICARE SUPPLEMENT [id number] 2019-Present [phone] [address] [place] [address] Indemnity [id number] 2019 Unknown MMO MMO MEDICARE SUPPLEMENT [id number] 2019-Present [phone] [address] [place] [address] Indemnity [id number] 2012 Medicare [id number] 2011 Medicare MEDICARE MEDICAR E A AND B [id number] 2011-Present [phone] [place] [address] Medicare [id number] 2011 Medicare MEDICARE MEDICAR E A AND B [id number] 2011-Present [phone] [place] [address] Medicare [id number] 1946 Unknown [id number] 1946 Unknown [id number] 1946 Unknown [id number] 1946 Unknown [id number] 1946 Unknown [id number] 1946 Unknown [id number] 1946 Unknown [id number] 1946 Unknown [id number] 1946 Unknown [id number] 1946 Unknown [id number] 1946 Unknown [id number] Unknown [id number] Unknown [id number] Social History Date Type Detail Facility Start: 04-11-2012 End: 05-05-2025 Tobacco smoking status NHIS Ex-smoker [facility] End: 08-18-1985 History of tobacco use Current smoker [facility] End: 08-18-1985 History of tobacco use Cigarette Smoker [facility] Start: 07-03-2015 Alcohol intake Current non-dr hull molder of alcohol (finding) [facility] Start: 1945 Sex Assigned At Not on file [facility] Start: 12-28-2021 End: 01-07-2022 Exposure to SARS-CoV-2 (event) Not sure [facility] Start: 04-11-2012 End: 01-07-2022 Cigarettes smoked current (pack per day) - Reported 0.5 [facility] Start: 01-07-2022 Area Deprivation Index [facility] National Score (1-10 0), lower number is lower risk 73 [facility] Start: 06-20-2023 Tobacco smoking stat us SCIS Unknown if ever smoked [facility] Start: 04-16-2018 None [facility] Start: 04-16-2018 Spouse/ Signif icant Other [facility] Start: 1945 Sex Assigned At Female W [facility] Medical Equipment Procedure Code Equipment Code Equipment Origin al Text Equipment Identifier Dates [id number], [id number] FDA Start: 01-28-2008 Comment on above: asscu-check kalie te st strips four times a day BD insulin syringe u ltrafine misc 30G x 1/2 1ML 1 two times a day Goals Date Patient Goal Desired Activity /State Mental Status Date Assessment Result Facility 06-23-2023 Cognitive function Level Of Cons ciousness Appropriate;Drowsy [facility] Work Phone: 06-23-2023 Cognitive function Patient Orien tation Person;Place;Time [facility] Work Phone: Clinical Notes 01-07-2022 to 05-05-2025 Note Date & Type Note Facility 05-05-2025 Evaluation note Diagnosis Onset Date Resolution Epigastric pain acute May 05, 2025 1:26pm Nausea acute April 1:26pm RUQ pain acute April 1:26pm Weight loss acute April 1:26pm [facility] [employer] Work Phone: 1(129) 898-871308-13-2024 Note* Letter - Jackie, Mammography - 04/02/2024 11:01 AM EDT April 02, 2024 PID: [id number] Carmen Harvey [address] [place] [id number] Dear Ms. Harvey, We are pleased to inform you that the results of your recent breast imaging exam on 04/01/2024 are normal. Breast tissue can be either dense or not dense. Dense tissue makes it harder to find breast cancer on a mammogram and also raises the risk of developing breast cancer. Your breast tissue is dense. Insome people with dense tissue, other imaging tests in addition to a mammogram may help find cancers. Talk to your healthcare provider about breast density, risks for breast cancer, and your individual situation. Early detection of cancer is very important. We also understand recommendations regarding breast cancer screening are controversial. Please discuss with your primary care provider which strategy is best for you and whether a mammogram is right for you. Your imaging studies and report will be kept on file at [facility] as part of your permanent medical record and are available for your continuing care. Thank you for allowing us to help in meeting your health care needs. Sincerely, Dr. Garcia Interpreting Radiologist [facility] (Normal over 40) [facility]08-13-2024 Miscellaneous Notes* Letter - Coordinator, Mammography - 04/02/2024 11:01 AM EDT April 02, 2024 PID: [id number] Carmen Harvey [address] [place] [address] Dear Ms. Harvey, We are pleased to inform you that the results of your recent breast imaging exam on 04/01/2024 are normal. Breast tissue can be either dense or not dense. Dense tissue makes it harder to find breast cancer on a mammogram and also raises the risk of developing breast cancer. Your breast tissue is dense. Insome people with dense tissue, other imaging tests in addition to a mammogram may help find cancers. Talk to your healthcare provider about breast density, risks for breast cancer, and your individual situation. Early detection of cancer is very important. We also understand recommendations regarding breast cancer screening are controversial. Please discuss with your primary care provider which strategy is best for you and whether a mammogram is right for you. Your imaging studies and report will be kept on file at [facility] as part of your permanent medical record and are available for your continuing care. Thank you for allowing us to help in meeting your health care needs. Sincerely, Dr. Garcia Interpreting Radiologist [facility] (Normal over 40) documented in this encounterT[facility]08-12-2024 History of Present illness Narrative* Patricia Rollins Mammo Tech - 04/01/2024 1:30 PM EDT Radiology Service Progress Note PATIENT NAME: Carmen Harvey DATE OF SERVICE: April 01, 2024 TIME: 2:07 PM PATIENT IDENTITY VERIFICATION COMPLETED USING TWO (2) IDENTIFIERS: Name and Date of confirmedby patient verbally. FALL SCREENING: Has the patient had 2 falls in the last year or 1 fall with injury or currently using an Ambulatory Assistive Device (Walker, Cane, Wheelchair, Crutches, etc.)? No PATIENT GENDER DATA: Female. status: : No status: NO. PATIENT RELEVANT IMPLANT DATA REVIEWED: Not Applicable PATIENT PRESENTS WITH AN IMPLANTABLE OR ATTACHED ON AIR HOST: No RADIOLOGY DEPARTMENT: Mammography PERIPHERAL IV DATA: Not applicable SIGNED BY: Sinan Hernandez April 01, 2024 2:07 PM documented in this encounterT[facility]11-[facility]-2023 Procedure [facility]11-03-2023 Procedure [facility]11-03-2023 History and physical note Author Carlos Maravilla [facility] June 23, 2023 8:52am Note Date/Time June 23, 2023 8 :52am [facility] Medical Records Department [address] [place] [address] History & Physical Exam 06/23/23 0852 MR#: [id number] Acct: [id number] Name: CARMEN HARVEY Rep #:[id number] : 1945 77 From: Carlos Maravilla MD PCP: Dr. Ann Marie Castano MD Status:[facility] Location: [place] [address] History and Physical Date of Admission: 06/23/23 Visit Reasons: Per 2018 OV DUE FOR C-SCOPE 02/2023 Chief Complaint: COLONOSCOPY Allergies codeine Allergy (Unknown, Verified 04/25/23 14:32) Unknownhydrocodone [From [place]] Allergy (Unknown, Verified 04/25/23 14:32) UnknownIodinated Contrast Media [Iodinated Contrast- Oral and IV Dye] Allergy (Unknown, Verified 04/25/23 14:32) Unknownmorphine Allergy (Unknown, Verified 04/25/23 14:32) Unknownnitrofurantoin [From Macrodantin] Allergy (Unknown, Verified 04/25/23 14:32) Unknowntramadol Allergy (Unknown, Verified 04/25/23 14:32) Unknown Medications ascorbic acid (vitamin C) 250 mg tablet 250 mg PO QDAY supplement 12/22/17 [History Confirmed 04/25/23] aspirin 81 mg tablet,delayed release (Adult Aspirin Regimen) 81 mg PO QDAY hearthealth 12/22/17 [History Confirmed 04/25/23] atorvastatin 40 mg tablet 40 mg PO QDAY cholesterol 12/22/17 [History Confirmed 04/26/18] biotin 2,500 mcg capsule 5 mg PO ONCE supplement 12/22/17 [History Confirmed 04/25/23] calcium carbonate 600 mg-vitamin D3 12.5 mcg (500 unit) capsule (Calcium 600 with Vitamin D3) 1,500 mg PO DAILY supplement 12/22/17 [History Confirmed 04/25/23] famotidine 10 mg tablet (Pepcid AC) 10 mg PO BID gerd 12/22/17 [History Confirmed 04/25/23] folic acid 400 mcg tablet 0.4 mg PO QDAY supplement 12/22/17 [History Confirmed 04/25/23] insulin NPH human semi-syn 100 unit/mL subcutaneous cartridge 50 unit subcut BIDdm 12/22/17 [History Confirmed 04/25/23] insulin regular human 100 unit/mL injection solution (Novolin R Regular U-100 Insulin) 5 unit IM PRN PRN dm 12/22/17 [History Confirmed 04/25/23] lactobacillus combination no.9 4 billion cell capsule (Adult 50 Plus Probiotic) 4,000 mmu cells PO QDAY supplement 12/22/17 [History Confirmed 04/26/18] lorazepam 0.5 mg tablet 0.5 mg PO BID-TID anxiety 12/22/17 [History Confirmed 04/26/18] losartan 100 mg tablet 100 mg PO QDAY bp 12/22/17 [History Confirmed 04/25/23] magnesium oxide 400 mg PO QDAY supplement 12/22/17 [History Confirmed 04/25/23] montelukast 10 mg tablet 10 mg PO QPM allergies 12/22/17 [History Confirmed 04/26/18] potassium chloride 20 mEq oral packet (Klor-Con) 20 meq PO BID supplement 12/22/17 [History Confirmed 04/25/23] pyridoxine (vitamin B6) 50 mg capsule 50 mg PO QDAY supplement 12/22/17 [History Confirmed 04/25/23] triamterene 50 mg-hydrochlorothiazide 25 mg capsule 1 cap PO QDAY supplement 12/22/17 [History Confirmed 04/26/18] vitamin B complex (B Complex-Vitamin B12 tablet) 1 tab PO QDAY supplement 12/22/17 [History Confirmed 04/26/18] warfarin 1 mg tablet (Coumadin) 1 mg PO QDAY bld thinner 12/22/17 [History Confirmed 04/25/23] warfarin 2.5 mg tablet (Coumadin) 2.5 mg PO QDAY bld thinner 12/22/17 [History Confirmed 04/25/23] sucralfate 1 gram tablet (Carafate) 1 g PO Q6H supplement 03/28/18 [History Confirmed 04/26/18] sotalol 80 mg tablet 80 mg PO Q12 #60 tabs 04/18/18 [Rx Confirmed 04/26/18] omeprazole 20 mg capsule,delayed release 20 mg PO DAILY 04/25/23 [History Confirmed 04/25/23] [facility] Medical History (Updated 04/25/23 @ 15:[address] Carlos Maravilla MD) A-fib Acid reflux Arthritis Asthma Back problem Diabetes Diarrhea Diverticulitis Fatigue Heart disease Heart murmur Hemorrhoids Hx of Clostridium difficile infection Nausea Sleep apnea Surgical History History of shoulder surgery History of surgery on arm Hx of bilateral cataract extraction Hx of breast biopsy Hx of breast surgery Hx of CABG Hx of cardiac cath Hx of cholecystectomy Hx of hysterectomy Hx of tubal ligation Family History Mother Diabetes Hypertension Heart disease HyperlipidemiaFather Heart disease Diabetes HyperlipidemiaDaughter SeizuresSister CVA (cerebral vascular accident) Social History (Updated 05/11/18 @ 15:[address] Carlos Maravilla MD) Smoking Status: Former smoker second hand exposure: No alcohol intake: never substance use type: does not use caffeine: Yes what type of physical activity do you participate in: none frequency: does not exercise seatbelt use: always HPI HPI HPI: 77-year-old female. I most recently assisted her April 2018 having performed a laparoscopic sigmoid colectomy for her April 18, 2018 for multiple episodes of recurrent sigmoid diverticulitis. Because of the multiple courses of oral antibiotics that she received she did obtained a severe case of C. difficile colitis and this also stimulated the decision for colectomy. She doeshave a previous history of colon polyps as well. Her most recent colonoscopy was March 02, 2018. She returns now to discuss potential for surveillance colonoscopy. She also has concerns about ongoing reflux symptoms. She states that remotely she had been seen by fire and safety helper Dr. Alexander Bell. For period of time she was on omeprazole therapy then she ceased that immediately after her surgery because of the conflict with the C. difficile. She now complains of heartburn and nausea particularly after meals. When she tries to take Zofran for her nausea she gets constipated. She has had a previous historyof a cholecystectomy. She complains of frequent stools loose stools and she is dependent upon cholestyramine. Remotely she had open heart bypass surgery. She has problems with atrial fibrillation and is on chronic Coumadin therapy. She has ongoing severe chronic back problems. She has been seen by Dr. Gibran white specially. She has had multiple injections. She states that occasionally the pain will radiate from her back to the low abdomen. No bright red blood per rectum or melena. ROS General General: Yes weight change and fatigue; No appetite, colon cancer, breast cancer or weakness HEENT HEENT: Yes difficulty swallowing; No eye injury, eye surgery, swollen glands or hoarseness Endo Endocrine: Yes diabetes mellitus; No thyroid disease, thyroid cancer, Hair loss, heat intolerance or cold intolerance Skin Skin: No rash or changing moles Breast Breast: No left breast lump, right breast lump, nipple discharge, breast pain, abnormal mammogram, abnormal US or breast enlargement Musc Musculoskeletal: Yes back problems and arthritis; No rheumatoid arthritis, gout or joint pain Cardio Cardiovascular: Yes murmur, heart disease and atrial fibrillation; No pacemaker, high blood pressure, heart attack, heart stent, palpitations, shortness of breat with exertion or chest pain Psych Psychiatric: Yes anxiety; No depression or hearing voices Resp Respiratory: Yes shortness of breath, Yes sleep apnea, Yes cough, No COPD, Yes asthma, No emphysema and No wheezing Gastro Gastrointestinal: Yes abdominal pain, Yes nausea or vomiting, Yes diarrhea, No constipation, No blood in stool, No acid reflux, No hemorrhoids, No ulcers, No gallbladder problem and No black,tarry stools [place] Hematologic: No blood thinners, No blood disorders, No bleeding, No anemia and No blood clots Neuro Neurologic: No system reviewed and no additional complaints, except as documented, No as per HPI, No abnormal gait, No abnormal hearing, No abnormal movements, No abnormal speech, No behavioral changes, No burning sensations, No confusion, No convulsions, No disequilibrium, No dizziness, No localized weakness, No frequent falls, No headache(s), No lack of coordination, No loss ofvision, No memory loss, No numbness, No other visual disturbances, No radicular pain, No restless legs, No sensory deficit, No syncope, No tingling, No tremor(s), No weakness and No other Exam Const General: cooperative, comfortable and no acute distress [facility] Head: normal to inspection Eyes General: appearance normal, both eyes and all related structures Neck Neck: normal visual inspection Chest Other: Increased AP diameter. Thoracic kyphosis noted Resp Other: Diminished respiratory excursion however clear. Slightly diminished in the bases Cardio Other: Irregular GI Other: Soft, overweight, diffusely tender even to light palpation Musc Other: Kyphosis Skin General: no rashes or lesions noted Neuro General: patient alert, patient awake and patient oriented x3 Extrem General: no calf tenderness Psych Appearance: grossly normal Assessment and Plan Assessment and Plan (1) Personal history of colonic polyps: Status: Acute Plan: I recommended the patient a surveillance colonoscopy with possible biopsy or polypectomy as indicated. She is aware of the technique, benefit, risk, alternatives. She has had an opportunity to ask and have questions answered. We will schedule and proceed at her discretion. I appreciate the ongoing opportunity of assisting with her surgical care. Copy: Dr. Ann Marie Maravilla M.D., F.A.C.S. (2) Acid reflux: Status: Acute Qualifiers: Esophagitis presence: esophagitis presence not specified Qualified Code(s): K21.9 - Gastro-esophageal reflux disease without esophagitis Plan: I think it is reasonable to offer the patient combined esophagogastroduodenoscopy careful inspection of the duodenum stomach EG junction and biopsies were appropriate to evaluate for H. pylori or even eosinophilic esophagitis to assist the patient with her chronic ongoing symptoms. Also recommend to her surveillance colonoscopy with possible biopsy or polypectomy as indicated. We will have her hold her warfarin 4 days preprocedure. Because of the patient's dependence on cholestyramine because of looser stools which may be related to her cholecystectomy or may be related to her sigmoid colectomy I will consider random colonic biopsies. She has had an opportunity to ask and have questions answered. We will utilize monitored anesthesia care to assist. Copy: Dr. Ann Marie Maravilla M.D., F.A.C.S I have examined the patient and the H&P has been reviewed. There are no clinicalchanges since date of exam. Carlos Maravilla M.D., F.A.C.S. 06/23/23 0852 <Electronically signed by Carlos Maravilla MD> Cosigner Signature (if applicable): CC: Dr. Ann Marie Castano MD; Dr. Carlos Maravilla MD~ Signed [facility] Work Phone: 1(894) 884-264811-03-2023 Procedure [facility] 06-23-2023 Procedure [facility]07-14-2023 Miscellaneous Notes* Letter - CoordinatorRosibel - 03/03/2023 8:48 AM EDT March 06, 2023 PID: [id number] Carmen Harvey [address] [address] Dear Ms. Harvey, We are pleased to inform you that the results of your recent breast imaging exam on 03/02/2023 are normal. Your mammogram demonstrates that you have dense breast tissue, which could hide abnormalities. Dense breast tissue, in and of itself, is a relatively common condition. Therefore, this information is not provided to cause undue concern; rather, it is to raise your awareness and promote discussion with your health care provider regarding the presence of dense breast tissue in addition to other riskfactors. Early detection of cancer is very important. We also understand recommendations regarding breast cancer screening are controversial. Please discuss with your primary care provider which strategy is best for you and whether a mammogram is right for you. Your imaging studies and report will be kept on file at [facility] as part of your permanent medical record and are available for your continuing care. Thank you for allowing us to help in meeting your health care needs. Sincerely, Dr. Yusuf Interpreting Radiologist [facility] (Normal over 40) documented in this encounterTuscar[facility] Hospital05-21-2022 Miscellaneous Notes* Letter - Mammography Coordinator - 01/08/2022 9:36 AM EDT January 08, 2022 PID: [id number] Carmen Harvey [address] [address] Dear Ms. Harvey, We are pleased to inform you that the results of your recent breast imaging exam on 01/07/2022 are normal. Your mammogram demonstrates that you have dense breast tissue, which could hide abnormalities. Dense breast tissue, in and of itself, is a relatively common condition. Therefore, this information is not provided to cause undue concern; rather, it is to raise your awareness and promote discussion with your health care provider regarding the presence of dense breast tissue in addition to other riskfactors. Early detection of cancer is very important. We also understand recommendations regarding breast cancer screening are controversial. Please discuss with your primary care provider which strategy is best for you and whether a mammogram is right for you. Your imaging studies and report will be kept on file at [facility] as part of your permanent medical record and are available for your continuing care. Thank you for allowing us to help in meeting your health care needs. Sincerely, Dr. Nunn Interpreting Radiologist [facility] (Normal over 40) documented in this encounterTuscar[facility]as Hospital05-20-2022 History of Present illness Narrative* RT Aimee(R) - 01/07/2022 2:30 PM EDT Radiology Service Progress Note PATIENT NAME: Carmen Harvey DATE OF SERVICE: January 07, 2022 TIME: 2:35 PM PATIENT IDENTITY VERIFICATION COMPLETED USING TWO (2) IDENTIFIERS: Name and Date of confirmedby patient verbally. FALL SCREENING: Has the patient had 2 falls in the last year or 1 fall with injury or currently using an Ambulatory Assistive Device (Walker, Cane, Wheelchair, Crutches, etc.)? No PATIENT GENDER DATA: Female. status: : No status: NO. PATIENT RELEVANT IMPLANT DATA REVIEWED: Not Applicable RADIOLOGY DEPARTMENT: Mammography PERIPHERAL IV DATA: Not applicable SIGNED BY: RT Aimee(Arlyn) January 07, 2022 2:35 PM documented in this encounterTuscarawas HospitalEvaluation note* Diagnosis Onset Date Resolution Status Acid reflux acute Personal history of colonic polyps acute [facility] Work Phone: Reason for referral (narrative)No reason for referral information availableHendricks Regional [facility] Services Work Phone: Summary Purpose Family History No Family History Records Found Relationship Condition Age at Onset Recorded Date/T yassine mother Diabetes mellitus Unknown Hypertension Unknown Cardiac disease Unknown Hyperlipidemia Unknown father Cardiac disease Unknown Diabetes mellitus Unknown daughter Seizure Unknown sister Cerebrovascular accident (CVA) Unknown Advance Directives No Advanced Directives Records Found Advance Directive Response Recorded Date/ Time Living Will No June 20 12:58pm Power of Pcas No June 20, 2023 12:58pm Chief Complaint and Reason for Visit Chief Complaint Per 2017 OV DUE FOR C-SCOPE 02/2023 Reason for Visit Acid reflux Personal history of colonic polyps Chief Complaint Admit Date Gastritis May 05, 2025 1:26pm Reason for Visit Admit Date Epigastric pain May 05, 2025 1:26pm Nausea May 05, 2025 1:26pm RUQ pain May 05, 2025 1:26pm Weight loss May 05, 2025 1:26pm Additional Source Comments INFORMATION SOURCE (unrecogn ized section and content) DATE CREATED AUTHOR 02/13/2018 [facility] [employer] DATE CREATED AUTHOR AUTHOR'S ORGANIZ ATION 06/12/2020 [facility] ([place]) DATE CREATED AUTHOR AUTHOR'S ORGANIZ ATION 05/13/2021 [facility] DATE CREATED AUTHOR AUTHOR'S ORGANIZ ATION 06/04/2025 [facility] DATE CREATED AUTHOR AUTHOR'S ORGANIZ ATION 06/05/2025 [facility] DATE CREATED AUTHOR AUTHOR'S ORGANIZ ATION 06/05/2025 [facility] Source Comments (unrecognize d section and content) In the event this informatio n is protected by the Federal Confidentiality of Alcohol and Drug Abuse Patient Records regulations: The Federal rules restrict any use of the information to criminally investigate or prosecute any alcohol or drug abuse patient.[facility] HospitalIn the event this information is protected by the Federal Confidentiality of Alcohol and Drug Abuse Patient Records regulations: The Federal rules restrict any use of the information to criminally investigate or prosecute any alcohol or drug abuse patient.[facility] HospitalIn the event this information is protected by the Federal Confidentiality of Alcohol and Drug Abuse Patient Records regulations: The Federal rules restrict any use of the information to criminally investigate or prosecute any alcohol or drug abuse patient.[facility] HospitalIn the event this information is protected by the Federal Confidentiality of Alcohol and Drug Abuse Patient Records regulations: The Federal rules restrict any use of the information to criminally investigate or prosecute any alcohol or drug abuse patient.[facility] HospitalIn the event this information is protected by the Federal Confidentiality of Alcohol and Drug Abuse Patient Records regulations: The Federal rules restrict any use of the information to criminally investigate or prosecute any alcohol or drug abuse patient.[facility] HospitalIn the event this information is protected by the Federal Confidentiality of Alcohol and Drug Abuse Patient Records regulations: The Federal rules restrict any use of the information to criminally investigate or prosecute any alcohol or drug abuse patient.[facility] Teams (unrecognized sec tion and content) 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 Ann Marie Castano MD Family Provider Active Dr. Ann Marie Castano MD Primary Care Provider Active Team Status: Inactive Member Role Status Dates Dr. Ann Marie Castano MD Primary Care Provider Active Dr. Carlos Maravilla MD Attending Provider, Referring Provider Active Team Status: Active Member Role Status Dates Dr. Ann Marie Castano MD Primary Care Provider, Referrin g Provider Active Dr. Carlos Maravilla MD Attending Provider, Other Prov ider Active Team Status: Inactive Member Role Status Dates Dr. Ann Marie Castano MD Primary Care Provider, Referrin g Provider Active Dr. 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 Ann Marie Castano MD Family Provider Active Dr. Doroteo Lobo MD Primary Care Provider Active Team Status: Inactive Member Role/Relationship Status Dates Monica Costa NP-C Attending Provider Active Start: May 05, 2025 End: May 05, 2025 Dr. Doroteo Lobo MD Primary Care Provider Active Start: May 05, 2025 End: May 05, 2025 Dr. Doroteo Lobo MD Referring Provider Active Sta rt: May 05, 2025 End: May 05, 2025 Goals (unrecognized section and content) Goals may be documented in a n alternate section FOR RECORDS PERTAINING TO PATIENTS WHO ARE OR HAVE BEEN ENROLLED IN A CHEMICAL DEPENDENCY/SUBSTANCEABUSE PROGRAM, SOME INFORMATION MAY BE OMITTED. This clinical summary was aggregated from multiple sources. Caution should be exercised in using it in the provision of clinical care. This summary normalizes information from multiple sources, and as a consequence, information in this document may materially change the coding, format and clinical context of patient data. In addition, data may be omitted in some cases. CLINICAL DECISIONS SHOULD BE BASED ON THE PRIMARY CLINICAL RECORDS. [facility]. provides no warranty or guarantee of the accuracy or completeness [phone] in this [id number]
--- OUTSIDE RECORDS SUMMARY | 2025-06-05 06:36 | XMS RPT_ITS | CCD ---
Author Organization [facility] Care Team Providers Care Arts Administrator Or Manager Name Role Phone Ann Marie Castano Unavailable Unavailable Roberto Carlos, Rimon Unavailable Unavailable Roberto Carlos, Rimon Unavailable Unavailable Ann Marie Castano MD Primary Care Provider Ann Marie Castano MD Primary Care Provider Dr. Ann Marie Castano Primary Care Provider 1([facility])[phone] Dr. Carlos Maravilla Attending Provider [phone] Dr. Carlos Maravilla Referring Provider Dr. Ann Marie Castano Referring Provider CeDr. Carlos dominguez Other Provider 1([facility])[phone] Ann Marie Castano MD Primary Care Provider 1([facility])[phone] Igor MEYER-CMonica Attending Provider Dr. Doroteo Lobo MD Primary Care Provider 1([facility])[phone] Dr. Doroteo Lobo MD Referring Provider 1([facility])[phone] Doroteo Lobo Referring Unavailable Monica Costa Attending Unavailable Doroteo Loob Primary Care Unavailable Rand, Jose Attending Unavailable Sesajan GRADUATE STUDIES DEAN, Gail Primary Care Unavailable Sahara GRADUATE STUDIES DEAN, Gail Referring Unavailable RALEIGH JHAVERI MD Referring Unava ilable ANN MARIE CASTANO MD Attending Unavailable ANN MARIE CASTANO MD Admitting Unavailable ANN MARIE CASTANO MD Primary Care Unavailable ANN MARIE CASTANO MD Consulting Unavailable PROVIDER, UNKNOWN Consulting Unavailable PROVIDER, UNKNOWN Consulting Unavailable PROVIDER, UNKNOWN Consulting Unavailable November ASSOCIATE RESEARCH SCIENTIST Attending Unavailable November ASSOCIATE RESEARCH SCIENTIST Admitting Unavailable November ASSOCIATE RESEARCH SCIENTIST Primary Care Unavailable November ASSOCIATE RESEARCH SCIENTIST Consulting Unavailable PROVIDER, UNKNOWN Consulting Unavailable PROVIDER, UNKNOWN Consulting Unavailable SARIKA BENITEZ MD Attending Unavailable SARIKA BENITEZ MD Admitting Unavailable November ASSOCIATE RESEARCH SCIENTIST Consulting Unavailable SARIKA BENITEZ MD Primary Care Unavailable PROVIDER, UNKNOWN Consulting Unavailable PROVIDER, UNKNOWN Consulting Unavailable FACUNDO CALVO MD Attending Unavailable FACUNDO CALVO MD Admitting Unavailable November ASSOCIATE RESEARCH SCIENTIST Referring Unavailable November ASSOCIATE RESEARCH SCIENTIST Consulting Unavailable FACUNDO CALVO MD Primary Care [...] Unavailable PROVIDER, UNKNOWN Consulting Unavailable SEFFEZOE WETZELE PRISON GUARD SUPERVISOR Consulting Unavailabl e SEFFENS, GAIL PRISON GUARD SUPERVISOR Attending Unavailabl e SEFFERASHARD GAIL PRISON GUARD SUPERVISOR Admitting Unavailabl e SEFFENS, GAIL PRISON GUARD SUPERVISOR Primary Care Unavailabl e PROVIDER, UNKNOWN Consulting [...] Allergy 06-24-20 15 Hives, GI Upset, Itching [facility] (8 sources) Codeine Drug Allergy 08-18-20 05 Unknown [facility] Work Phone: [phone] (6 sources) Iodine Drug Allergy 08-18-20 05 [facility] Work Phone: [phone] (8 sources) Morphine Drug Allergy 01-28-20 08 Unknown [facility] Work Phone: [phone] (6 sources) Nitrofurantoin Drug Allergy 08-18-20 05 [facility] Work Phone: [phone] (8 sources) traMADol Drug Allergy 06-24-20 15 Hives, GI Upset, Itching [facility] (2 sources) HYDROcodone Drug Allergy 06-23-20 23 Unknown [facility] (2 sources) Nitrofurantoin Drug Allergy 06-23-20 23 Unknown [facility] (2 sources) Triiodobenzoic Acids Allergy to substance 06-23-20 23 Unknown [facility] (1 source) Codeine Drug Allergy 06-03-20 25 [facility] (1 source) HYDROcodone Drug Allergy 06-03-20 25 [facility] (1 source) Morphine Drug Allergy 06-03-20 [facility] (1 source) Nitrofurantoin Drug Allergy 06-03-20 25 [facility] (1 source) traMADol Drug Allergy 06-03-20 25 [facility] (1 source) Iodinated Contrast Media Drug allergy (disorder) 06-03-20 25 [facility] (1 source) Acetaminophen / HYDROcodone Drug Allergy [facility] (1 source) benzonatate Drug Allergy [facility] (1 source) Codeine Drug Allergy [facility] (1 source) Contrast media Drug allergy (disorder) [facility] (1 source) Lisinopril Drug Allergy [facility] (1 source) Morphine Drug Allergy [facility] (1 source) Nitrofurantoin Drug Allergy [facility] (1 source) traMADol Drug Allergy [facility] (1 source) 11/26/17 (+) CDIFF; Translations: [11/26/17 (+) CDIFF] Propensity to adverse reactions (disorder) [facility] (1 source) UNCHECKED ALLERGY CODE - OTHER - See chart; Translations: [UNCHECKED ALLERGY CODE - OTHER - See chart] Propensity to adverse reactions (disorder) [facility] Medications Current Medications Medication Drug Class(es) Dates Sig (Normalized) Sig (Original) [id number] 200 actuat albuterol 0.09 mg/actuat metered dose [...] disease (1 source) Atherosclerotic heart disease of [place] coronary artery without angina pectoris; Translations: [Atherosclerotic heart disease of [place] coronary artery without angina pectoris] Onset: 5 [...] Onset: 12-08-2024 Episodic Other aftercare (1 source) [facility] (current) use of insulin; Translations: [biological technician (current) use of insulin] Onset: 12-08-2024 Episodic Other aftercare (1 source) biological technician (current) use of oral hypoglycemic drugs; Translations: [[facility] (current) use of oral hypoglycemic drugs] Onset: 12-08-2024 Episodic Other aftercare (1 source) [facility] (current) use of anticoagulants; Translations: [[facility] (current) use of anticoagulants] Onset: 12-08-2024 Episodic [...] Interpretation Reference Range Facility MR/Girma 06-04-2025 MR/EMMA [facility] Medical Records Department [address] [place] [address] PAT - Anesthesia 06/04/25 1501 MR#: [id number] Acct: [id number] Name: CARMEN HARVEY Rep #: [id number] : 1945 79 From: Thiago Beltran MD PCP: Gail Shoemaker NP Status:PRE SD Y Race: C Location: EN Pre-Assessment Diagnosis/Proposed Procedure Planned Operative Procedure(s): EGD, COLONOSCOPY Anesthesia History Anesthesia History - driller and reamer: Anesthesia History - driller and reamer Hx Hospitalization Yes: 11/2024 STOMACH PAIN 06/03/25 [...] take am of surgery PONV PONV - driller and reamer: PONV - driller and reamer Female Yes 06/03/25 15:02 HX of Motion [...] 05/05/25 13:48 Respiratory Assessment Respiratory Assessment - driller and reamer: Respiratory Tract Infection Hx - driller and reamer Hx Respiratory Tract Infection No 06/03/25 15:02 STOP Sleep Apnea STOP Sleep Apnea - driller and reamer: STOP Sleep Apnea - driller and reamer Hx Hypertension Yes 06/03/25 15:02 Hx Sleep [...] 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 - driller and reamer: Tobacco Use History - driller and reamer Tobacco Use Smoking Status Former smoker 06/03/25 15:02 Hx Tobacco Use No 06/03/25 15:02 Years Smoking Packs Smoked per Day Smoking Cessation Date was No - quit smoking greater 06/03/25 15:02 within the last 15 years than 15 years ago Hx Smoking Cessation Date 08/21/86 06/03/25 15:02 Hx Smoking Cessation Counseling Hematologic Medial History Hematologic Hx - driller and reamer: Hematologic Medical Hx - speed winder Hx of Blood Transfusion No 06/03/25 15:02 Hx of Transfusion in last 3 No 06/03/25 15:02 Months Date of Last Transfusion (if within last 3 months) Ever experience any problems No 06/03/25 15:02 with transfusion(s)? Specify any problems Hx of Preganancy in last 3 No 06/03/25 15:02 Months Nurse Filling Out Transfusion [facility] 06/03/25 15:02 Questions: Date: 06/03/25 06/03/25 15:02 Time: 15:06/03/25 15:02 Patient unable to answer at this time (ie. confused, unrespo /Reproduction History /Reproductive History - driller and reamer: /Reproductive Hx- driller and reamer Hx Now Gestational Age (in weeks): EDC: [...] ???Instructions ???Recor (more content not included)... Normal [facility] GLUTAMIC ACID DECARBOXLASE A NTIBODY [CCLon 06-03-2025 Glutamic Ac Decar Ab <5.0 Normal <=5.0 [facility] Comment on above: Result Comment: Anti -glutamic [...] nervous system diseases. Clinical correlation is required. [facility] [address] [place] [address] Drew Nj III, M.D. [id number] Performed By: #### 2 04633 #### [facility],[address] [place] [address] CBC + DIFFon 06-02-2025 Baso # 0.01 x10EE3/UL Normal 0.00 - 0.10 [facility] Comment on above: Performed By: #### 2 12197 #### [facility],[address] [place] [address] 29883 Basophils/100 WBC (Bld) 0.1 % Normal 0.0 - 2.0 [facility] Comment on above: Performed By: #### 2 58506 #### [address] [address] CBC + DIFF Normal [facility] Comment on above: Result Comment: CBC- COMPLETE BLOOD COUNT Performed By: #### 2 77810 #### [address] [address] EO # 0.09 x10EE3/UL Normal 0.00 - 0.50 [facility] Comment on above: Performed By: #### 2 92888 #### [address] [address] Eosinophils/100 WBC (Bld) 1.3 % Normal 0.0 - 7.0 [facility] Comment on above: Performed By: #### 2 77257 #### [address] [address] Erythrocyte distribution width (RBC) [Ratio] 15.2 % Normal 12.0 - 15.6 [facility] Comment on above: Performed By: #### 2 77095 #### [address] [address] Hematocrit (Bld) [Volume fraction] 36.2 % Normal 34.0 - 46.0 [facility] Comment on above: Performed By: #### 2 27674 #### [facility],[address] [place] [address] Hemoglobin (Bld) [Mass/Vol] 12.0 g/dL Normal 12.0 - 16.0 [facility] Comment on above: Performed By: #### 2 05846 #### [facility],[address] [place] [address] Lymph # 1.24 x10EE3/UL Normal 0.80 - 2.80 [facility] Comment on above: Performed By: #### 2 84739 #### [facility],[address] [place] [address] Lymphocytes/100 WBC (Bld) 18.1 % Low 20.0 - 45.0 [facility] Comment on above: Performed By: #### 2 40054 #### [facility],[address] [place] [address] MANUAL DIFF N/A Normal [facility] Comment on above: Performed By: #### 2 70933 #### [facility],[address] [place] [address] MCH (RBC) [Entitic mass] 28 pg Normal 27 - 33 [facility] Comment on above: Performed By: #### 2 10271 #### [facility],[address] [place] [address] MCHC 33 X10 3 Normal 32 - 36 [facility] Comment on above: Performed By: #### 2 84190 #### [facility],[address] [place], [place] [address] MCV (RBC) [Entitic vol] 84 fL Normal 80 - 99 [facility] Comment on above: Performed By: #### 2 20374 #### [facility],[address],[place] [address] Woods # 0.55 x10EE3/UL Normal 0.20 - 1.00 [facility] Comment on above: Performed By: #### 2 99771 #### [address] [address] MONOS % 8.0 % Normal 0.0 - 10.0 [facility] Comment on above: Performed By: #### 2 54137 #### [facility],[address] [place] [address] Morphology Hardy (Bld) [Interp] N/A Normal [facility] Comment on above: Performed By: #### 2 93859 #### [place] [address] Neut # 4.95 x10EE3/UL Normal 1.50 - 7.10 [facility] Comment on above: Performed By: #### 2 99228 #### [place] [address] Neutrophils/100 WBC (Bld) 72.4 % Normal 46.0 - 76.0 [facility] Comment on above: Performed By: #### 2 15683 #### [place] [address] PLATELET 206 x10EE3/UL Normal 150 - 450 [facility] Comment on above: Performed By: #### 2 83145 #### [facility],[address] [place] [address] Platelet mean volume (Bld) [Entitic vol] 8.2 fL Normal 6.6 - 10.5 [facility] Comment on above: Result Comment: AUTO MATED DIFFERENTIAL Performed By: #### 2 56640 #### [place] [address] RBC 4.33 x 10EE6/UL Normal 4.10 - 5.30 [facility] Comment on above: Performed By: #### 2 17465 #### [facility],[address] [place] [address] WBC 6.8 x 10EE3/UL Normal 4.5 - 10.8 [facility] Comment on above: Performed By: #### 2 46523 #### [facility],[address] [place] [address] 20941 CMP with eGFRon 06-02-2025 AGE 79 years Normal [facility] Comment on above: Performed By: #### 2 23220 #### [facility],[address] [place] [address] Albumin [Mass/Vol] 3.2 g/dL Low 3.4 - 5.0 [facility] Comment on above: Performed By: #### 2 31587 #### [facility],[address] [place] [address]898 Albumin/Globulin [Mass ratio] 1.0 {ratio} Normal 0.9 - 1.6 [facility] Comment on above: Performed By: #### 2 14376 #### [facility],[address] [place] [address]64 ALK PHOS 121 U/L High 46 - 116 [facility] Comment on above: Performed By: #### 2 59905 #### [facility],[address] [place] [address]105 ALT [Catalytic activity/Vol] 17 U/L Normal 16 - 63 [facility] Comment on above: Performed By: #### 2 00907 #### [facility],[address] [place] [address] Anion gap [Moles/Vol] 8 mmol/L Low 10 - 20 [facility] Comment on above: Performed By: #### 2 76447 #### [facility],[address] [place] [address] 66871 AST [Catalytic activity/Vol] 16 U/L Normal 13 - 39 [facility] Comment on above: Performed By: #### 2 16843 #### [facility],[address] [place] [address] B/C RATIO 19 ratio Normal 0 - 30 [facility] Comment on above: Performed By: #### 2 39366 #### [facility],[address] [place] [address] Bilirubin [Mass/Vol] 2.2 mg/dL High 0.2 - 1.0 [facility] Comment on above: Performed By: #### 2 59461 #### [facility],[address] [place] [address]207 Calcium [Mass/Vol] 9.1 mg/dL Normal 8.5 - 10.1 [facility] Comment on above: Performed By: #### 2 04831 #### [facility],[address] [place] [address] 37719 Chloride [Moles/Vol] 104 mmol/L Normal 98 - 107 [facility] Comment on above: Performed By: #### 2 62070 #### [facility],[address] [place] [address] 38211 CMP with eGFR Normal [facility] Comment on above: Result Comment: COMP REHENSIVE METABOLIC PANEL Performed By: #### 2 01247 #### [facility],[address] [place] [address]6835 CO2 [Moles/Vol] 30.5 mmol/L Normal 21.0 - 32.0 [facility] Comment on above: Performed By: #### 2 94910 #### [facility],[address] [place] [address]782 Creatinine [Mass/Vol] 0.89 mg/dL Normal 0.55 - 1.02 [facility] Comment on above: Performed By: #### 2 85016 #### [facility],[address] [place] [address] GFR/1.73 sq M.predicted among non-blacks MDRD (S/P/Bld) [Vol rate/Area] mL/min/{1.73_m2} Normal 60 - 999 [facility] Comment on above: Performed By: #### 2 78743 #### [facility],[address] [place] [address] Result Comment: ACCO RDING TO THE NATIONAL KIDNEY DISEASE EDUCATION PROGRAM(NKDE), A NORMAL eGFR IS A VALUE GREATER THAN OR EQUAL TO 60 ML/MIN/1.73 SQ METERS. CHRONIC KIDNEY DISEASE: <60mL/MIN/1.73 SQ METERS KIDNEY FAILURE: <15mL/MIN/1.73 SQ METERS THIS TEST SHOULD ONLY BE USED FOR PATIENTS 18 YEARS OF AGE AND OLDER. Globulin (S) [Mass/Vol] 3.2 g/dL Normal 1.5 - 3.8 [facility] Comment on above: Performed By: #### 2 74373 #### [address] [address] Glucose [Mass/Vol] 118 mg/dL High 74 - 106 [facility] Comment on above: Performed By: #### 2 37629 #### [facility],[address] [place] [address]165 Potassium [Moles/Vol] 3.6 mmol/L Normal 3.5 - 5.1 [facility] Comment on above: Performed By: #### 2 50258 #### [facility],[address] [place] [address]383 Protein [Mass/Vol] 6.4 g/dL Normal 6.4 - 8.2 [facility] Comment on above: Performed By: #### 2 77750 #### [facility],[address] [place] [address]348 Sodium [Moles/Vol] 139 mmol/L Normal 136 - 145 [facility] Comment on above: Performed By: #### 2 42564 #### [facility],[address] [place] [address]122 Urea nitrogen [Mass/Vol] 17 mg/dL Normal 7 - 18 [facility] Comment on above: Performed By: #### 2 99598 #### [facility],[address] [place], [place] [address] GAD65 Ab Ser-aCncon 06-02-20 25 Glutamate decarboxylase 65 Ab Qn (S) <5.0 Normal <=5.0 [facility] Comment on above: Order Comment: Abimbola bermudez Type: BLOOD SPECIMEN Ordering Facility: [facility] Address: [address] [place] [address] Result Comment: Anti -glutamic acid decarboxylase antibody [...] required. Performed By: #### 1 3926-1 #### [facility] CLIA [id number] [address] [place] [address] [place] Glutamate decarboxylase 65 A b Qn (S)on 06-02-2025 GLUTAMIC ACID DECARBOXYLAS AB QUALITATIVE Negative Normal Negative [facility] Comment on above: Order Comment: Abimbola bermudez Type: BLOOD SPECIMEN Ordering Facility: [facility] Address: [address] [place] [address] Performed By: #### 1 3926-1 #### [facility] CLIA [id number] [address] [place] [address] [place] HEMOGLOBIN A1C (POM)on 06-02 Glucose [Mass/Vol] 139.9 mg/dL High 0.0 - 0.0 [facility] Comment on above: Result Comment: BLDo HEMOGLOBIN A1C REFERENCE RANGESBLDo Suggested Diagnosis HbA1c(%) HbA1C (mmol/mol Diabetic >/=6.5 >/=48 Prediabetes 5.7 - 6.4 39 - 47 Normal <5.7 <39 Performed By: #### 2 88082 #### [facility],[address] [place], [place] [address] HbA1c (Bld) [Mass fraction] 6.5 % Normal 0.0 - 6.5 [facility] Comment on above: Performed By: #### 2 71470 #### [facility],[address] [place] [address] 28931 IgA SerPl-mCncon 06-02-2025 IgA [Mass/Vol] 265 mg/dL Normal 70-400 [facility] Comment on above: Order Comment: Speci men Type: BLOOD SPECIMEN Ordering Facility: [facility] Address: [address] [place] [address] Performed By: #### 2 458-8 #### [facility] CLIA [id number] [address] [place] [address] OF [facility] LIPID PROFILEon 06-02-2025 Cholesterol [Mass/Vol] 89 mg/dL Normal 0 - 240 [facility] Comment on above: Performed By: #### 2 07777 #### [facility],[address] [place] [address] Cholesterol in HDL [Mass/Vol] 47 mg/dL Normal 40 - 60 [facility] Comment on above: Performed By: #### 2 22695 #### [facility],[address] [place] [address] Cholesterol in LDL [Mass/Vol] 23 mg/dL Normal 0 - 129 [facility] Comment on above: Performed By: #### 2 00149 #### [facility],[address] [place] [address] Cholesterol.total/Ch olesterol in HDL [Mass ratio] 1.9 {ratio} Normal 0.0 - 5.0 [facility] Comment on above: Performed By: #### 2 28815 #### [facility],[address] [place] [address] 34462 Lipid 1996 panel Normal [facility] Comment on above: Result Comment: LIPI D PROFILE Performed By: #### 2 42386 #### [facility],[address] [place] [address]252 Triglyceride [Mass/Vol] 93 mg/dL Normal 0 - 150 [facility] Comment on above: Performed By: #### 2 85836 #### [facility],[address] [place] [address]607 MAGNESIUMon 06-02-2025 Magnesium [Mass/Vol] 1.8 mg/dL Normal 1.8 - 2.4 [facility] Comment on above: Performed By: #### 2 24490 #### [facility],[address] [place] [address] VITAMIN B-12on 06-02-2025 Cobalamin (Vitamin B12) [Mass/Vol] 1169 pg/mL High 193 - 986 [facility] Comment on above: Performed By: #### 2 69775 #### [facility],[address] [place] [address] 26971 Gastroenterology Visit Repor ton 05-05-2025 Gastroenterology Visit Report [facility] [address] [place] [address] OFFICE VISIT Date of Service: 05/05/25 MR#: [id number] Acct: [id number] Name: CARMEN HARVEY Rep #: [id number] : 1945 Provider: NICOLÁS palumbo Age/Sex: 79/F Location[place] [facility] [place] [facility] [place] Status: Signed Intake Vital Signs 06/23/23 08:36 05/05/25 13:48 Height 4 ft 11 in 4 ft 11 in Weight: 173 lb 4 oz BMI 34.9 BP 125/73 H Respiration 18 Pulse 78 Temp 97.9 F Temp Source Temporal Pulse Oximetry (%) 98 Oxygen Delivery Method room air Intake Visit Reasons: Gastritis Chief Complaint: pain Investment Accounting Clerk Required: No Accompanied by: Is patient in pain?: No Allergies codeine Allergy (Unknown, Verified 05/05/25 13:45) Unknown hydrocodone (From [place]) Allergy (Unknown, Verified 05/05/25 13:45) Unknown Iodinated [...] second hand (more content not included)... Normal [facility] ED MED ADMINISTRATION DETAIL on 04-14-2025 ED MED ADMINISTRATION DETAIL Store Product Demonstrator - CARMEN HARVEY, : 1945, , Medication Administration Record [address] [place] [address] [id number] 04/09/2025 Patient: CARMEN HARVEY Sex: Female : 1945 Age: 79y MEASUREMENTS: Wt: 77.1 kg, Ht/Manuel: 59.0 in, BMI: 34.34 ALLERGIES: Iodinated Contrast Media, Macrodantin, [place], Tessalon Perles, codeine, lisinopril, morphine, tramadol Medication [...] 22:55 Whitney Osborn R.N. 1 of 2 Store Product Demonstrator - CARMEN HARVEY, : 1945, , Medication [...] Whitney Osborn R.N. 2 of 2 Normal [facility] ED NURSES CLINICAL NOTEon ED NURSES CLINICAL NOTE Nurse Narrative - CARMEN HARVEY, : 1945, , Nurse Clinical Narrative [address] [place] [address] [id number] 04/09/2025 15:08:00 Patient: CARMEN HARVEY Sex: Female [...] a day every AM. -- 15:39 04/09/25 [facility] Arlyn Soria.Supriya Percocet 5 mg-325 mg tablet: 1 tab every 6 hours as needed for pain. -- 15:40 04/09/25 T Barrie Medrano R.N. Allergies: morphine -- 15:37 04/09/25 T Arlyn Soria.Supriya codeine -- 15:37 04/09/25 [facility] Arlyn Soria.Tiburcio. Iodinated Contrast Media -- 15:37 04/09/25 [facility] Arlyn Soria.N. Macrodantin -- 15:37 04/09/25 [facility] Arlyn Soria.Tiburcio. lisinopril -- 15:37 04/09/25 [facility] Arlyn Soria.Tiburcio. tramadol -- 15:37 04/09/25 [facility] Arlyn Soria.Supriya Albion -- 15:37 04/09/25 [facility] Arlyn Soria.Supriya Tessalon Perles -- 15:37 04/09/25 [facility] Arlyn Soria.Tiburcio. Problems: Coronary artery bypass grafting (procedure) -- 15:37 04/09/25 [facility] Barrie Medrano R.N. Anemia -- 15:37 04/09/25 T Arlyn Soria.Tiburcio. Chronic kidney disease stage 3 -- 15:37 04/09/25 [facility] Arlyn Soria.Tiburcio. Osteoarthritis of multiple joints -- 15:37 04/09/25 [facility] Arlyn Soria.Tiburcio. Gastroparesis -- 15:37 04/09/25 T Arlyn Soria.Tiburcio. [...] Bowel Resection -- 15:38 04/09/25 EDT Barrie Medrano R.N. 2 of 5 Nurse Narrative - [...] abdomen. S (more content not included)... Normal [facility] ED ORDER SHEET (CPOE ONLY)on 04-14-2025 ED ORDER SHEET (CPOE ONLY) Order Sheet - CARMEN HARVEY, : 1945, , Order Sheet [address] [address] [id number] 04/09/2025 Patient: CARMEN HARVEY Sex: Female : 1945 Age: 79y MEASUREMENTS: Wt: 77.1 kg, Ht/Manuel: 59.0 in, BMI: 34.34 ALLERGIES: Iodinated Contrast Media, Macrodantin, [place], Tessalon Perles, codeine, lisinopril, morphine, tramadol MEDICATION/IV/DRIP/FLUID [...] 17:33 18:24 Succ (Solu-Medrol) IVP40 mg Facundo Calvo M.D. 04/09/2025 04/09/2025 1 of 3 Order [...] (04/09/2025 21:10 EDT)] 3 of 3 Normal [facility] ED PHYSICIAN CLINICAL REPORT on 04-14-2025 ED PHYSICIAN CLINICAL REPORT Narrative - CARMEN HARVEY, : 1945, , Physician Clinical Narrative [address] [address] [id number] 04/09/2025 15:08:00 Patient: CARMEN HARVEY Sex: Female [...] MRN: Iodinated Contrast Media lisinopril Macrodantin morphine [place] Tessalon Perles tramadol ADDITIONAL NOTES The nursing [...] every QRS when QRS for P wave. OK, QRS, QTC are all unremarkable. Borderline left axis deviation leads 1 AVF. Good R-wave progression. No significant ST-elevation or depression. Laboratory Tests: CBC + DIFF Final PEE: 04/09/2025 17:18:00 EDT MsgRcvd: 04/09/2025 17:34 EDT 3 of 12 [facility] - CARMEN HARVEY, : 1945, , Lab [...] 17:34 MONO (more content not included)... Normal [facility] ED SUPER BILLon 04-14-2025 ED [facility] CARMEN HARVEY, : 1945, , 40 [address] [address] [id number] 04/09/2025 Patient: CARMEN HARVEY Sex: Female : 1945 Age: 79y Item Facility Professional Category Description Code Code Quantity Fee Total Nurse/E/M EMERGENCY 955601 1 $0.00 $0.00 DEPARTMENT VISIT HIGH/URGENT SEVERITY (27063-21) Nurse/IV/IM/Infusions Hydration 001291 2 $0.00 $0.00 additional hour (57387) Nurse/IV/IM/Infusions IVP additional 830922 3 $0.00 $0.00 push (26036) Nurse/IV/IM/Infusions IVP initial 883221 1 $0.00 $0.00 (09289) Grand Total $0.00 Providers Facundo Calvo M.D. Chief Complaint 1 of 2 [facility] CARMEN HARVEY, : 1945, , MRN: ABDOMINAL PAIN. Principal Diagnosis right mid abdominal pain, gastritis. 2 of 2 Normal [facility] ED VISIT SUMMARYon ED VISIT SUMMARY Visit Overview - CARMEN GREGG, : 1945, , MRN: Visit [facility] [address] [place] [address] [id number] 04/09/2025 Patient: CARMEN HARVEY Sex: Female : [...] - CARMEN HARVEY, : 1945, , MRN: [place] Tesjose Alas tramadol HOME MEDICATIONS Flomax 0.4 [...] Urinalysis CLINICAL IMPRESSION 4 of 4 Normal [facility] ED VITALS FLOW SHEETon 04-14 ED VITALS FLOW SHEET Vitals - CARMEN HARVEY, : 1945, , MRN: Vital Sign Flow Sheet [place] [address] [place] [address] [phone] 04/09/2025 Patient: CARMEN HARVEY MRN#: Sex: Female [...] 97.4 F 8 2 of 2 Normal [facility] CBC + DIFFon 04-09-2025 Baso # 0.00 x10EE3/UL Normal 0.00 - 0.10 [facility] Comment on above: Performed By: #### 2 63050 #### [facility],[address] [place] [address] 74367 Basophils/100 WBC (Bld) 0.0 % Normal 0.0 - 2.0 [facility] Comment on above: Performed By: #### 2 55726 #### [facility],[address] [place] [address] 35690 CBC + DIFF Normal [facility] Comment on above: Result Comment: CBC- COMPLETE BLOOD COUNT Performed By: #### 2 00146 #### [facility],[address] [place] [address] 29477 EO # 0.17 x10EE3/UL Normal 0.00 - 0.50 [facility] Comment on above: Performed By: #### 2 49039 #### [facility],[address] [place] [address] 22993 Eosinophils/100 WBC (Bld) 2.0 % Normal 0.0 - 7.0 [facility] Comment on above: Performed By: #### 2 01580 #### [facility],[address] [place] [address] Erythrocyte distribution width (RBC) [Ratio] 15.2 % Normal 12.0 - 15.6 [facility] Comment on above: Performed By: #### 2 14893 #### [facility],[address] [place] [address] Hematocrit (Bld) [Volume fraction] 35.4 % Normal 34.0 - 46.0 [facility] Comment on above: Performed By: #### 2 73512 #### [facility],[address] [place] [address] Hemoglobin (Bld) [Mass/Vol] 12.4 g/dL Normal 12.0 - 16.0 [facility] Comment on above: Performed By: #### 2 30847 #### [facility],[address] [place] [address] Lymph # 1.12 x10EE3/UL Normal 0.80 - 2.80 [facility] Comment on above: Performed By: #### 2 24995 #### [facility],[address] [place] [address] Lymphocytes/100 WBC (Bld) 12.7 % Low 20.0 - 45.0 [facility] Comment on above: Performed By: #### 2 82031 #### [facility],[address] [place], [place] [id number] MANUAL DIFF N/A Normal [facility] Comment on above: Performed By: #### 2 42767 #### [facility],[address] [place] [address] MCH (RBC) [Entitic mass] 30 pg Normal 27 - 33 [facility] Comment on above: Performed By: #### 2 61541 #### [place] [id number] MCHC 35 X10 3 Normal 32 - 36 [facility] Comment on above: Performed By: #### 2 89880 #### [facility],[address] [place] [address] MCV (RBC) [Entitic vol] 86 fL Normal 80 - 99 [facility] Comment on above: Performed By: #### 2 81840 #### [facility],[address] [place] [address] Woods # 0.83 x10EE3/UL Normal 0.20 - 1.00 [facility] Comment on above: Performed By: #### 2 31561 #### [facility],[address] [place] [address] MONOS % 9.4 % Normal 0.0 - 10.0 [facility] Comment on above: Performed By: #### 2 79650 #### [facility],[address] [place] [address] Morphology Hardy (Bld) [Interp] N/A Normal [facility] Comment on above: Performed By: #### 2 04079 #### [facility],[address] [place] [address] Neut # 6.66 x10EE3/UL Normal 1.50 - 7.10 [facility] Comment on above: Performed By: #### 2 78471 #### [facility],[address] [place] [address] Neutrophils/100 WBC (Bld) 75.8 % Normal 46.0 - 76.0 [facility] Comment on above: Performed By: #### 2 58399 #### [facility],[address] [place] [address] PLATELET 192 x10EE3/UL Normal 150 - 450 [facility] Comment on above: Performed By: #### 2 03398 #### [facility],[address],[place] [address] Platelet mean volume (Bld) [Entitic vol] 8.4 fL Normal 6.6 - 10.5 [facility] Comment on above: Result Comment: AUTO MATED DIFFERENTIAL Performed By: #### 2 70759 #### [facility],[address] [place] [address] 23571 RBC 4.14 x 10EE6/UL Normal 4.10 - 5.30 [facility] Comment on above: Performed By: #### 2 70516 #### [facility],[address] [place] [address] 35153 WBC 8.8 x 10EE3/UL Normal 4.5 - 10.8 [facility] Comment on above: Performed By: #### 2 82635 #### [facility],[address] [place], [place] [phone] CMP with eGFRon 04-09-2025 AGE 79 years Normal [facility] Comment on above: Performed By: #### 2 05285 #### [facility],[address] [place] [address] 04712 Albumin [Mass/Vol] 3.4 g/dL Normal 3.4 - 5.0 [facility] Comment on above: Performed By: #### 2 05666 #### [facility],[address] [place] [address] 38549 Albumin/Globulin [Mass ratio] 0.9 {ratio} Normal 0.9 - 1.6 [facility] Comment on above: Performed By: #### 2 76717 #### [facility],[address] [place] [address] 95885 ALK PHOS 128 U/L High 46 - 116 [facility] Comment on above: Performed By: #### 2 20653 #### [facility],[address] [place] [address] 55099 ALT [Catalytic activity/Vol] 98 U/L High 16 - 63 [facility] Comment on above: Performed By: #### 2 86692 #### [facility],[address] [place] [address] 10784 Anion gap [Moles/Vol] 15 mmol/L Normal 10 - 20 [facility] Comment on above: Performed By: #### 2 88190 #### [facility],[address] [place] [address] 98735 AST [Catalytic activity/Vol] 40 U/L High 13 - 39 [facility] Comment on above: Performed By: #### 2 44515 #### [facility],[address] [place] [address] 56363 B/C RATIO 21 ratio Normal 0 - 30 [facility] Comment on above: Performed By: #### 2 18046 #### [facility],[address] [place] [address] 12941 Bilirubin [Mass/Vol] 2.9 mg/dL High 0.2 - 1.0 [facility] Comment on above: Performed By: #### 2 08622 #### [facility],[address] [place] [address] 88405 Calcium [Mass/Vol] 9.3 mg/dL Normal 8.5 - 10.1 [facility] Comment on above: Performed By: #### 2 20810 #### [facility],[address] [place] [address] 97315 Chloride [Moles/Vol] 103 mmol/L Normal 98 - 107 [facility] Comment on above: Performed By: #### 2 62372 #### [facility],[address] [place] [address] 65325 CMP with eGFR Normal [facility] Comment on above: Result Comment: COMP REHENSIVE METABOLIC PANEL Performed By: #### 2 04841 #### [facility],[address] [place] [address] 53834 CO2 [Moles/Vol] 25.5 mmol/L Normal 21.0 - 32.0 [facility] Comment on above: Performed By: #### 2 87904 #### [facility],[address] [place] [address] 94718 Creatinine [Mass/Vol] 1.09 mg/dL High 0.55 - 1.02 [facility] Comment on above: Performed By: #### 2 86703 #### [facility],[address] [place] [address] 25559 eGFR 49 ML/MINUTE Low 60 - 999 [facility] Comment on above: Performed By: #### 2 37382 #### [facility],[address] [place] [address] 37148 eGFR(AA) 59 ML/MINUTE Low 60 - 999 [facility] Comment on above: Result Comment: ACCO RDING TO THE NATIONAL KIDNEY DISEASE EDUCATION PROGRAM(NKDE), A NORMAL eGFR IS A VALUE GREATER THAN OR EQUAL TO 60 ML/MIN/1.73 SQ METERS. CHRONIC KIDNEY DISEASE: <60mL/MIN/1.73 SQ METERS KIDNEY FAILURE: <15mL/MIN/1.73 SQ METERS THIS TEST SHOULD ONLY BE USED FOR PATIENTS 18 YEARS OF AGE AND OLDER. Performed By: #### 2 29203 #### [facility],[address] [place] [address] 21206 Globulin (S) [Mass/Vol] 3.8 g/dL Normal 1.5 - 3.8 [facility] Comment on above: Performed By: #### 2 09748 #### [facility],[address] [place] [address] 11613 Glucose [Mass/Vol] 96 mg/dL Normal 74 - 106 [facility] Comment on above: Performed By: #### 2 76726 #### [address] [address] Potassium [Moles/Vol] 3.6 mmol/L Normal 3.5 - 5.1 [facility] Comment on above: Performed By: #### 2 91512 #### [address] [address] Protein [Mass/Vol] 7.2 g/dL Normal 6.4 - 8.2 [facility] Comment on above: Performed By: #### 2 60199 #### [facility],[address] [place] [address] 35656 Sodium [Moles/Vol] 140 mmol/L Normal 136 - 145 [facility] Comment on above: Performed By: #### 2 17242 #### [facility],[address] [place] [address] 85083 Urea nitrogen [Mass/Vol] 23 mg/dL High 7 - [facility] Comment on above: Performed By: #### 2 98004 #### [facility],[address] [place] [address] ANGIOGRAPHY ABDOMEN //T// PELVISon 04-09-2025 CT ANGIOGRAPHY ABDOMEN //T// PELVIS [place] [address] Patient: CARMEN HARVEY Phone#: : 1945 Age: 79 Gender: F Pt. Type: ER Account: [id number] Location: [facility] Ordering: DR. FACUNDO CALVO Exam Date: 04/09/2025/19:38 Family Phys: DERICK Shalonda CAMPA Charge Code: 068816 Physician: Jewell Order #: [id number] Dose#: 26.10 mGy PROCEDURE: CT ANGIOGRAPHY ABDOMEN AND PELVIS WITH CONTRAST COMPARISON: [facility], CT, ABDOMEN/PELVIS W/O CON, 03/31/2021, 19:10. [facility], CT, ABDOMEN/PELVIS W/O CON, 04/07/2025, 13:19. [...] 79 Gender: F Pt. Type: ER Account: [id number] Location: [facility] Ordering: DR. FACUNDO CALVO Exam Date: 04/09/2025/19:38 Family Phys: November. GHENT Charge Code: 234913 Physician: Jewell Order #: [id number] Dose#: 26.10 mGy BONES: Degenerative changes of [...] Mederos MD on 04/09/2025 at 20:31 Normal [facility] LACTATEon 04-09-2025 Lactate [Moles/Vol] 1.2 mmol/L Normal 0.4 - 2.0 [facility] Comment on above: Performed By: #### 2 16958 #### [facility],[address] [place], [place] [address] TROPONINon 04-09-2025 HS TROPONIN 4.1 pg/mL Normal 0.0 - 51.4 [facility] Comment on above: Performed By: #### 2 36343 #### [facility],[address] [place] [address] 21714 URINALYSISon 04-09-2025 Amorphous NONE Normal [facility] Comment on above: Performed By: #### 2 79962 #### [facility],[address] [place] [address] Bacteria NONE Normal [facility] Comment on above: Performed By: #### 2 11758 #### [facility],[address] [place], [place] [address] Bilirubin Ql (U) Negative Normal NORMAL: NEGATIVE [facility] Comment on above: Performed By: #### 2 98518 #### [facility],[address] [place], [place] [address] Casts NONE Normal [facility] Comment on above: Performed By: #### 2 31481 #### [facility],[address] [place] [address] 97028 Clarity (U) clear Normal NORMAL: CLEAR [facility] Comment on above: Performed By: #### 2 52446 #### [facility],[address] [place] [address] 57544 Color (U) p.yel Normal NORMAL: YELLOW [facility] Comment on above: Performed By: #### 2 96866 #### [facility],[address] [place] [address] 34750 Crystals LM Nom (Urine sed) NONE Normal [facility] Comment on above: Performed By: #### 2 91156 #### [facility],[address] [place] [address] 10745 Epi Cells FEW Normal [facility] Comment on above: Performed By: #### 2 00975 #### [facility],[address] [place] [address] 70132 Glucose Ql (U) 1000 Abnormal NORMAL: NORMAL [facility] Comment on above: Performed By: #### 2 92143 #### [facility],[address] [place] [address] 08331 Hemoglobin Ql (U) 10 Abnormal NORMAL: NEGATIVE [facility] Comment on above: Performed By: #### 2 57704 #### [facility],[address] [place] [address] 37980 Ketone Negative Normal NORMAL: NEGATIVE [facility] Comment on above: Performed By: #### 2 07886 #### [facility],[address] [place] [address] 31309 Leukocytes Negative Normal NORMAL: NEGATIVE [facility] Comment on above: Performed By: #### 2 60478 #### [facility],[address] [place] [address] 98406 Mucous NONE Normal [facility] Comment on above: Performed By: #### 2 78770 #### [facility],[address] [place] [address] 96517 Nitrite Ql (U) Negative Normal NORMAL: NEGATIVE [facility] Comment on above: Performed By: #### 2 41629 #### [facility],[address] [place] [address] 87344 pH (U) 7 [pH] Normal NORMAL: 5.0-8.0 [facility] Comment on above: Performed By: #### 2 44952 #### [facility],[address] [place] [address] 85316 Protein Ql (U) Negative Normal NORMAL: NEGATIVE [facility] Comment on above: Performed By: #### 2 12442 #### [facility],[address] [place] [address] 88290 Rbc 0-5 Normal 0-3/hpf [facility] Comment on above: Performed By: #### 2 36304 #### [facility],[address] [place] [address] Sp [place] 1.005 Low NORMAL: 1.010-1.030 [facility] Comment on above: Performed By: #### 2 71374 #### [facility],[address] [place] [address] Specimen Type R Normal [facility] Comment on above: Performed By: #### 2 10628 #### [facility],[address] [place] [address] Urinalysis dipstick W Reflex Microscopic panel (U) SEE BELOW Normal [facility] Comment on above: Result Comment: MICR OSCOPIC Performed By: #### 2 51244 #### [facility],[address] [place] [address] Urobilinog NORM Normal NORMAL: NORMAL [facility] Comment on above: Performed By: #### 2 89979 #### [facility],[address] [place] [address] Wbc NONE Normal 0-5/hpf [facility] Comment on above: Performed By: #### 2 50618 #### [facility],[address] [place] [address] Yeast NONE Normal [facility] Comment on above: Performed By: #### 2 47394 #### [facility],[address] [place] [address] CBC + DIFFon 04-07-2025 Baso # 0.02 x10EE3/UL Normal 0.00 - 0.10 [facility] Comment on above: Performed By: #### 2 31107 #### [facility],[address] [place] [address] Basophils/100 WBC (Bld) 0.2 % Normal 0.0 - 2.0 [facility] Comment on above: Performed By: #### 2 37138 #### [facility],[address] [place] [address] CBC + DIFF Normal [facility] Comment on above: Result Comment: CBC- COMPLETE BLOOD COUNT Performed By: #### 2 96600 #### [facility],[address] [place] [address] EO # 0.22 x10EE3/UL Normal 0.00 - 0.50 [facility] Comment on above: Performed By: #### 2 32176 #### [facility],[address] [place] [address] Eosinophils/100 WBC (Bld) 2.2 % Normal 0.0 - 7.0 [facility] Comment on above: Performed By: #### 2 01370 #### [facility],[address] [place] [address] Erythrocyte distribution width (RBC) [Ratio] 15.2 % Normal 12.0 - 15.6 [facility] Comment on above: Performed By: #### 2 11208 #### [facility],[address] [place] [address] Hematocrit (Bld) [Volume fraction] 37.8 % Normal 34.0 - 46.0 [facility] Comment on above: Performed By: #### 2 97976 #### [facility],[address] [place], [place] [address] Hemoglobin (Bld) [Mass/Vol] 12.8 g/dL Normal 12.0 - 16.0 [facility] Comment on above: Performed By: #### 2 89424 #### [facility],[address] [place], [place] [address] Lymph # 1.29 x10EE3/UL Normal 0.80 - 2.80 [facility] Comment on above: Performed By: #### 2 80954 #### [facility],[address] [place], [place] [address] Lymphocytes/100 WBC (Bld) 13.1 % Low 20.0 - 45.0 [facility] Comment on above: Performed By: #### 2 52130 #### [facility],[address] [place] [address] MANUAL DIFF N/A Normal [facility] Comment on above: Performed By: #### 2 27897 #### [facility],[address] [place] [address] MCH (RBC) [Entitic mass] 29 pg Normal 27 - 33 [facility] Comment on above: Performed By: #### 2 01374 #### [place] [address] MCHC 34 X10 3 Normal 32 - 36 [facility] Comment on above: Performed By: #### 2 25475 #### [facility],[address] [place] [address] MCV (RBC) [Entitic vol] 85 fL Normal 80 - 99 [facility] Comment on above: Performed By: #### 2 53285 #### [place] [address] Woods # 0.79 x10EE3/UL Normal 0.20 - 1.00 [facility] Comment on above: Performed By: #### 2 81716 #### [place] [address] MONOS % 8.0 % Normal 0.0 - 10.0 [facility] Comment on above: Performed By: #### 2 53799 #### [place] [address] Morphology Hardy (Bld) [Interp] N/A Normal [facility] Comment on above: Performed By: #### 2 03074 #### [place] [address] Neut # 7.56 x10EE3/UL High 1.50 - 7.10 [facility] Comment on above: Performed By: #### 2 48365 #### [facility],[address] [place] [address] 73664 Neutrophils/100 WBC (Bld) 76.5 % High 46.0 - 76.0 [facility] Comment on above: Performed By: #### 2 54509 #### [facility],[address] [place] [address] 48393 PLATELET 230 x10EE3/UL Normal 150 - 450 [facility] Comment on above: Performed By: #### 2 56817 #### [facility],[address] [place] [address] 74721 Platelet mean volume (Bld) [Entitic vol] 8.3 fL Normal 6.6 - 10.5 [facility] Comment on above: Result Comment: AUTO MATED DIFFERENTIAL Performed By: #### 2 79956 #### [facility],[address] [place] [address] 10576 RBC 4.43 x 10EE6/UL Normal 4.10 - 5.30 [facility] Comment on above: Performed By: #### 2 80114 #### [facility],[address] [place] [address] 58393 WBC 9.9 x 10EE3/UL Normal 4.5 - 10.8 [facility] Comment on above: Performed By: #### 2 96376 #### [facility],[address] [place] [address] 51729 CMP with eGFRon 04-07-2025 AGE 79 years Normal [facility] Comment on above: Performed By: #### 2 91109 #### [facility],[address] [place] [address] 02040 Albumin [Mass/Vol] 3.5 g/dL Normal 3.4 - 5.0 [facility] Comment on above: Performed By: #### 2 52099 #### [facility],[address] [place] [address] 86224 Albumin/Globulin [Mass ratio] 1.1 {ratio} Normal 0.9 - 1.6 [facility] Comment on above: Performed By: #### 2 16229 #### [facility],[address] [place] [address] 43923 ALK PHOS 112 U/L Normal 46 - 116 [facility] Comment on above: Performed By: #### 2 20020 #### [facility],[address] [place] [address] 51620 ALT [Catalytic activity/Vol] 16 U/L Normal 16 - 63 [facility] Comment on above: Performed By: #### 2 37762 #### [facility],[address] [place] [address] 02173 Anion gap [Moles/Vol] 16 mmol/L Normal 10 - 20 [facility] Comment on above: Performed By: #### 2 00565 #### [facility],[address] [place] [address] 76171 AST [Catalytic activity/Vol] 19 U/L Normal 13 - 39 [facility] Comment on above: Performed By: #### 2 27445 #### [facility],[address] [place] [address] 78776 B/C RATIO 22 ratio Normal 0 - 30 [facility] Comment on above: Performed By: #### 2 18940 #### [facility],[address] [place] [address] 10008 Bilirubin [Mass/Vol] 2.4 mg/dL High 0.2 - 1.0 [facility] Comment on above: Performed By: #### 2 54029 #### [facility],[address] [place] [address] 37189 Calcium [Mass/Vol] 9.4 mg/dL Normal 8.5 - 10.1 [facility] Comment on above: Performed By: #### 2 00075 #### [facility],[address] [place] [address] 51991 Chloride [Moles/Vol] 101 mmol/L Normal 98 - 107 [facility] Comment on above: Performed By: #### 2 31036 #### [facility],[address] [place] [address] 41960 CMP with eGFR Normal [facility] Comment on above: Result Comment: COMP REHENSIVE METABOLIC PANEL Performed By: #### 2 40081 #### [facility],[address] [place] [address] 18362 CO2 [Moles/Vol] 23.1 mmol/L Normal 21.0 - 32.0 [facility] Comment on above: Performed By: #### 2 70210 #### [facility],[address] [place] [address] 61084 Creatinine [Mass/Vol] 0.96 mg/dL Normal 0.55 - 1.02 [facility] Comment on above: Performed By: #### 2 50889 #### [facility],[address] [place] [address] 28189 eGFR 56 ML/MINUTE Low 60 - 999 [facility] Comment on above: Performed By: #### 2 80263 #### [facility],[address] [place] [address] 93161 GFR/1.73 sq M.predicted among non-blacks MDRD (S/P/Bld) [Vol rate/Area] mL/min/{1.73_m2} Normal 60 - 999 [facility] Comment on above: Result Comment: ACCO RDING TO THE NATIONAL KIDNEY DISEASE EDUCATION PROGRAM(NKDE), A NORMAL eGFR IS A VALUE GREATER THAN OR EQUAL TO 60 ML/MIN/1.73 SQ METERS. CHRONIC KIDNEY DISEASE: <60mL/MIN/1.73 SQ METERS KIDNEY FAILURE: <15mL/MIN/1.73 SQ METERS THIS TEST SHOULD ONLY BE USED FOR PATIENTS 18 YEARS OF AGE AND OLDER. Performed By: #### 2 60638 #### [facility],[address] [place] [address] 21524 Globulin (S) [Mass/Vol] 3.3 g/dL Normal 1.5 - 3.8 [facility] Comment on above: Performed By: #### 2 58429 #### [facility],[address] [place] [address] 06719 Glucose [Mass/Vol] 186 mg/dL High 74 - 106 [facility] Comment on above: Performed By: #### 2 04532 #### [facility],[address] [place] [address] 66973 Potassium [Moles/Vol] 3.4 mmol/L Low 3.5 - 5.1 [facility] Comment on above: Performed By: #### 2 57169 #### [facility],[address] [place] [address] 97076 Protein [Mass/Vol] 6.8 g/dL Normal 6.4 - 8.2 [facility] Comment on above: Performed By: #### 2 97786 #### [facility],[address] [place] [address] 17383 Sodium [Moles/Vol] 137 mmol/L Normal 136 - 145 [facility] Comment on above: Performed By: #### 2 17125 #### [facility],[address] [place] [address] 31438 Urea nitrogen [Mass/Vol] 21 mg/dL High 7 - 18 [facility] Comment on above: Performed By: #### 2 24331 #### [facility],[address] [place] [address] ABDOMEN/PELVIS [facility] 04-07 CT ABDOMEN/PELVIS [place] [address] Patient: CARMEN HARVEY Phone#: : 1945 Age: 79 Gender: F Pt. Type: ER Account: [id number] Location: 052 Ordering: DR. SARIKA BENITEZ Exam Date: 04/07/2025/13:19 Family Phys: Charge Code: 509825 Physician: Jewell Order #: [id number] Dose#: 14.40 PROCEDURE: CT ABDOMEN/PELVIS WITHOUT CONTRAST COMPARISON: [facility], CT, ABDOMEN/PELVIS W/O CON, 03/31/2021, 19:10. [...] evidence of acute abdominal or pelvic abnormality. [place] [address] Patient: CARMEN HARVEY Phone#: : 1945 Age: 79 Gender: F Pt. Type: ER Account: [id number] Location: 052 Ordering: DR. 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 [address] [id number] 04/07/2025 Patient: CARMEN HARVEY Sex: Female : 1945 Age: 79y MEASUREMENTS: Wt: 77.1 kg, Ht/Manuel: 59.0 in, BMI: 34.34 ALLERGIES: Iodinated Contrast Media, Macrodantin, [place], Tessalon Perles, codeine, lisinopril, morphine, tramadol Medication [...] MEDICATION) Faisal Scanned 1 of 1 Normal [facility] ED NURSES CLINICAL NOTEon ED NURSES CLINICAL NOTE Nurse Narrative - CARMEN HARVEY, : 1945, , Nurse Clinical Narrative [address] [address] [phone] 04/07/2025 12:32:00 Patient: CARMEN HARVEY Sex: Female [...] Del Toro R.N. 1 of 4 Nurse [facility] - WESCARMEN, : 1945, , Allergies: morphine -- 12:40 04/07/25 T Jorge Del Toro R.N. codeine -- 12:40 04/07/25 EDT Jorge Del Toro R.N. Iodinated Contrast Media -- 12:40 04/07/25 T Jorge Del Toro R.N. Macrodantin -- 12:40 04/07/25 T Jorge Del Toro R.N. lisinopril -- 12:40 04/07/25 T Jorge Del Toro R.N. tramadol -- 12:40 04/07/25 T Jorge Del Toro R.N. Albion -- 12:40 04/07/25 T Faisal Pruett -- [...] R.N. 13: (more content not included)... Normal [facility] ED ORDER SHEET (CPOE ONLY)on 04-07-2025 ED ORDER SHEET (CPOE ONLY) Order Sheet - CARMEN HARVEY, : 1945, , Order Sheet [address] [address] [id number] 04/07/2025 Patient: CARMEN HARVEY Sex: Female : 1945 Age: 79y MEASUREMENTS: Wt: 77.1 kg, Ht/Manuel: 59.0 in, BMI: 34.34 ALLERGIES: Iodinated Contrast Media, Macrodantin, [place], Tessalon Perles, codeine, lisinopril, morphine, tramadol MEDICATION/IV/DRIP/FLUID [...] (04/07/2025 15:29 EDT)] 3 of 3 Normal [facility] ED PHYSICIAN CLINICAL REPORT on 04-07-2025 ED PHYSICIAN CLINICAL REPORT Narrative - CARMEN HARVEY, : 1945, , Physician Clinical Narrative [address] [address] [id number] 04/07/2025 12:32:00 Patient: CARMEN HARVEY Sex: Female [...] codeine Iodinated Contrast Media lisinopril Macrodantin morphine [place] Tessalon Perles tramadol 2 of 12 Birgit [...] Final Above high normal EDT 04/07/2025 13:18 Woods # 0.79 x10/UL 0.20 - 1.00 Final EDT 04/07/2025 13:18 EO # 0.22 x10/UL 0.00 - 0.50 Final EDT 04/07/2025 13:18 Baso # 0.02 x10/UL 0.00 - 0.10 Final EDT 04/07/2025 13:18 MANUAL DIFF N/A New Order EDT 04/07/2025 13:18 MORPHOLOGY N/A New Order EDT CMP with eGFR Final PEE: 04/07/2025 (more content not included)... Normal [facility] ED [facility]07[facility] 1945, , [place] [address] [id number] 04/07/2025 Patient: CARMEN HARVEY Sex: Female : 1945 Age: 79y Item Facility Professional Category Description Code Code Quantity Fee Total Nurse/E/M EMERGENCY 567536 1 $0.00 $0.00 DEPARTMENT VISIT HIGH/URGENT SEVERITY (87534-93) Nurse/IV/IM/Infusions IVP additional 712336 2 $0.00 $0.00 push (27474) Nurse/IV/IM/Infusions IVP initial 489784 1 $0.00 $0.00 (75325) Nurse/IV/IM/Infusions IVP same med 719065 1 $0.00 $0.00 (31 min apart) (41259) Grand Total $0.00 Providers Sarika Benitez M.D. Chief Complaint [address] [facility] CARMEN HARVEY, : 1945, , MRN: ABDOMINAL PAIN. Principal Diagnosis Abdominal pain. Renal colic. flank pain. ICD-10 Codes N23: Unspecified renal colic R10.9: Unspecified abdominal pain 2 of 2 Normal [facility] ED VISIT SUMMARYon ED VISIT SUMMARY Visit Overview - CARMEN GREGG, : 1945, , MRN: Visit [address] [address] [id number] 04/07/2025 Patient: CARMEN HARVEY Sex: Female : 1945 Age: 79y 04/07/2025 05:23 PM EDT ED Arrival:12:32 04/07/2025 EDT Status: Recent Travel:no Language:eng Adv Directive:No Isolation Status: Ethnicity:N Fall Risk:risk Infectious Disease Exposure:no Measurements:4'11 / 149.9 Self-Harm Status:risk Sepsis Screen:negative cm 170.0 lb / 77.1 kg Chief Complaint:FLANK PAIN and ([facility] ) ALLERGIES codeine Iodinated Contrast Media lisinopril Macrodantin morphine [place] Tessalon Perles tramadol HOME MEDICATIONS 1 of [...] PAIN RENAL COLIC 4 of 4 Normal [facility] ED VITALS FLOW SHEETon 04-07 ED VITALS FLOW SHEET Vitals - CARMEN HARVEY, : 1945, , MRN: Vital Sign Flow Sheet [facility] [address] [place] [address] [id number] 04/07/2025 Patient: CARMEN HARVEY Sex: Female : 1945 Age: 79y Measurements Wt: 77.1 kg, Ht/Manuel: 59.0 in, BMI: 34.34 Measured Time BP MAP HR RR O2Sat ETCO2 Temp Pain GCS RTS 15:38 04/07/2025 120/53 75 73 16 99% 3 12:41 04/07/2025 142/64 90 76 18 99% 97.6 F 10 1 of 1 Normal [facility] URINALYSISon 04-07-2025 Amorphous NONE Normal [facility] Comment on above: Performed By: #### 2 88050 #### [facility],[address] [place] [address] 61741 Bacteria NONE Normal [facility] Comment on above: Performed By: #### 2 25181 #### [facility],[address] [place] [address] 54073 Bilirubin Ql (U) Negative Normal NORMAL: NEGATIVE [facility] Comment on above: Performed By: #### 2 24635 #### [facility],[address] [place] [address] 22871 Casts NONE Normal [facility] Comment on above: Performed By: #### 2 68316 #### [facility],[address] [place] [address] 76566 Clarity (U) clear Normal NORMAL: CLEAR [facility] Comment on above: Performed By: #### 2 79077 #### [facility],[address] [place] [address] 88806 Color (U) yellow Normal NORMAL: YELLOW [facility] Comment on above: Performed By: #### 2 65143 #### [facility],[address] [place] [address] 30000 Crystals LM Nom (Urine sed) NONE Normal [facility] Comment on above: Performed By: #### 2 24665 #### [facility],[address] [place] [address] 38056 Epi Cells NONE Normal [facility] Comment on above: Performed By: #### 2 59512 #### [facility],[address] [place] [address] 71987 ERROR DUE TO TYPING ERROR Normal [facility] Comment on above: Performed By: #### 2 52119 #### [facility],[address] [place] [address] 10992 Glucose Ql (U) 1000 Abnormal NORMAL: NORMAL [facility] Comment on above: Performed By: #### 2 18463 #### [facility],[address] [place] [address] 41164 Hemoglobin Ql (U) 25 Abnormal NORMAL: NEGATIVE [facility] Comment on above: Performed By: #### 2 46884 #### [facility],[address] [place] [address] 37511 Ketone Negative Normal NORMAL: NEGATIVE [facility] Comment on above: Performed By: #### 2 62260 #### [facility],[address] [place] [address] 09086 Leukocytes Negative Normal NORMAL: NEGATIVE [facility] Comment on above: Performed By: #### 2 24582 #### [facility],[address] [place] [address] 94329 Mucous NONE Normal [facility] Comment on above: Performed By: #### 2 60813 #### [facility],[address] [place] [address] 59161 Nitrite Ql (U) Negative Normal NORMAL: NEGATIVE [facility] Comment on above: Performed By: #### 2 36308 #### [facility],[address] [place] [address] 49984 pH (U) 6 [pH] Normal NORMAL: 5.0-8.0 [facility] Comment on above: Performed By: #### 2 46311 #### [facility],[address] [place] [address] 35582 Protein Ql (U) Negative Normal NORMAL: NEGATIVE [facility] Comment on above: Performed By: #### 2 34587 #### [facility],[address] [place] [address] 46315 Rbc 0-5 Normal 0-3/hpf [facility] Comment on above: Performed By: #### 2 07582 #### [facility],[address] [place] [address] 44171 Sp [place] 1.010 Normal NORMAL: 1.010-1.030 [facility] Comment on above: Performed By: #### 2 29046 #### [facility],[address] [place] [address] 85782 Specimen Type R Normal [facility] Comment on above: Performed By: #### 2 63771 #### [facility],[address] [place] [address] 07516 Urinalysis dipstick W Reflex Microscopic panel (U) SEE BELOW Normal [facility] Comment on above: Result Comment: MICR OSCOPIC Performed By: #### 2 64431 #### [facility],[address] [place] [address] 00798 Urobilinog NORM Normal NORMAL: NORMAL [facility] Comment on above: Performed By: #### 2 04328 #### [facility],[address] [place] [address] 63683 Wbc NONE Normal 0-5/hpf [facility] Comment on above: Performed By: #### 2 93323 #### [facility],[address] [place] [address] 16077 Yeast NONE Normal [facility] Comment on above: Result Comment: ==== FOLLOWING RESULTS REPORTED IN ERROR Wbc 1-5 <-- *Previously reported in error [id number] . .M Rbc NONE <-- *Previously reported in error [id number] . .M Performed By: #### 2 19752 #### [facility],[address] [place] [address] 59740 PTH, INTACT [CCL]on 02-21-20 25 PTH, Intact 47 pg/mL Normal 15-65 [facility] Comment on above: Result Comment: [facility] [address] [place] [address] Drew Nj III, M.D. [id number] Performed By: #### 2 96451 #### [facility],[address] [place] [address] 54933 BMP with eGFRon 02-19-2025 AGE 79 years Normal [facility] Comment on above: Performed By: #### 2 78706 #### [facility],[address] [place] [address] 30174 Anion gap [Moles/Vol] 13 mmol/L Normal 10 - 20 [facility] Comment on above: Performed By: #### 2 87614 #### [facility],[address] [place] [address] 04228 BMP with eGFR Normal [facility] Comment on above: Result Comment: BASI C METABOLIC PANEL Performed By: #### 2 27233 #### [facility],[address] [place] [address] 35999 Calcium [Mass/Vol] 9.2 mg/dL Normal 8.5 - 10.1 [facility] Comment on above: Performed By: #### 2 13300 #### [facility],[address] [place] [address] 02504 Chloride [Moles/Vol] 101 mmol/L Normal 98 - 107 [facility] Comment on above: Performed By: #### 2 65252 #### [facility],[address] [place] [address] 90322 CO2 [Moles/Vol] 26.0 mmol/L Normal 21.0 - 32.0 [facility] Comment on above: Performed By: #### 2 57250 #### [facility],[address] [place] [address] 14553 Creatinine [Mass/Vol] 1.11 mg/dL High 0.55 - 1.02 [facility] Comment on above: Performed By: #### 2 14851 #### [facility],[address] [place] [address] 77841 eGFR 48 ML/MINUTE Low 60 - 999 [facility] Comment on above: Performed By: #### 2 27547 #### [facility],[address] [place] [address] 03342 eGFR(AA) 58 ML/MINUTE Low 60 - 999 [facility] Comment on above: Result Comment: ACCO RDING TO THE NATIONAL KIDNEY DISEASE EDUCATION PROGRAM(NKDE), A NORMAL eGFR IS A VALUE GREATER THAN OR EQUAL TO 60 ML/MIN/1.73 SQ METERS. CHRONIC KIDNEY DISEASE: <60mL/MIN/1.73 SQ METERS KIDNEY FAILURE: <15mL/MIN/1.73 SQ METERS THIS TEST SHOULD ONLY BE USED FOR PATIENTS 18 YEARS OF AGE AND OLDER. Performed By: #### 2 11192 #### [address] [address] Glucose [Mass/Vol] 204 mg/dL High 74 - 106 [facility] Comment on above: Performed By: #### 2 66589 #### [facility],[address] [place] [address] 31306 Potassium [Moles/Vol] 4.1 mmol/L Normal 3.5 - 5.1 [facility] Comment on above: Performed By: #### 2 48552 #### [facility],[address] [place] [address] 83284 Sodium [Moles/Vol] 136 mmol/L Normal 136 - 145 [facility] Comment on above: Performed By: #### 2 39691 #### [address],[place] [address] Urea nitrogen [Mass/Vol] 24 mg/dL High 7 - 18 [facility] Comment on above: Performed By: #### 2 74607 #### [facility],[address] [place] [address] 97990 CBC + DIFFon 02-19-2025 Baso # 0.03 x10EE3/UL Normal 0.00 - 0.10 [facility] Comment on above: Performed By: #### 2 84618 #### [facility],[address] [place] [address] 25707 Basophils/100 WBC (Bld) 0.4 % Normal 0.0 - 2.0 [facility] Comment on above: Performed By: #### 2 49005 #### [facility],[address] [place] [address] CBC + DIFF Normal [facility] Comment on above: Result Comment: CBC- COMPLETE BLOOD COUNT Performed By: #### 2 77612 #### [facility],[address] [place] [address] 07504 EO # 0.14 x10EE3/UL Normal 0.00 - 0.50 [facility] Comment on above: Performed By: #### 2 26944 #### [facility],[address] [place] [address] 99026 Eosinophils/100 WBC (Bld) 2.3 % Normal 0.0 - 7.0 [facility] Comment on above: Performed By: #### 2 92791 #### [facility],[address] [place] [address] 69847 Erythrocyte distribution width (RBC) [Ratio] 15.1 % Normal 12.0 - 15.6 [facility] Comment on above: Performed By: #### 2 58194 #### [facility],[address] [place] [address] 44218 Hematocrit (Bld) [Volume fraction] 36.2 % Normal 34.0 - 46.0 [facility] Comment on above: Performed By: #### 2 38493 #### [facility],[address] [place] [address] Hemoglobin (Bld) [Mass/Vol] 12.6 g/dL Normal 12.0 - 16.0 [facility] Comment on above: Performed By: #### 2 30299 #### [facility],[address] [place] [address] Lymph # 1.15 x10EE3/UL Normal 0.80 - 2.80 [facility] Comment on above: Performed By: #### 2 05839 #### [facility],[address] [place] [address] Lymphocytes/100 WBC (Bld) 18.4 % Low 20.0 - 45.0 [facility] Comment on above: Performed By: #### 2 80953 #### [facility],[address] [place] [address] MANUAL DIFF N/A Normal [facility] Comment on above: Performed By: #### 2 48846 #### [facility],[address] [place] [address] MCH (RBC) [Entitic mass] 30 pg Normal 27 - 33 [facility] Comment on above: Performed By: #### 2 89408 #### [facility],[address] [place] [address] MCHC 35 X10 3 Normal 32 - 36 [facility] Comment on above: Performed By: #### 2 76665 #### [facility],[address] [place] [address] 68615 MCV (RBC) [Entitic vol] 85 fL Normal 80 - 99 [facility] Comment on above: Performed By: #### 2 71862 #### [facility],[address] [place] [address] Woods # 0.54 x10EE3/UL Normal 0.20 - 1.00 [facility] Comment on above: Performed By: #### 2 63346 #### [facility],[address] [place] [address] 15574 MONOS % 8.6 % Normal 0.0 - 10.0 [facility] Comment on above: Performed By: #### 2 32207 #### [facility],[address] [place] [address] 07685 Morphology Hardy (Bld) [Interp] N/A Normal [facility] Comment on above: Performed By: #### 2 25746 #### [facility],[address] [place] [address] 60838 Neut # 4.40 x10EE3/UL Normal 1.50 - 7.10 [facility] Comment on above: Performed By: #### 2 47857 #### [facility],[address] [place] [address] 42468 Neutrophils/100 WBC (Bld) 70.4 % Normal 46.0 - 76.0 [facility] Comment on above: Performed By: #### 2 61407 #### [facility],[address] [place] [address] 81264 PLATELET 199 x10EE3/UL Normal 150 - 450 [facility] Comment on above: Performed By: #### 2 74593 #### [facility],[address] [place] [address] 50137 Platelet mean volume (Bld) [Entitic vol] 8.3 fL Normal 6.6 - 10.5 [facility] Comment on above: Result Comment: AUTO MATED DIFFERENTIAL Performed By: #### 2 49548 #### [facility],[address] [place] [address] 22301 RBC 4.27 x 10EE6/UL Normal 4.10 - 5.30 [facility] Comment on above: Performed By: #### 2 84562 #### [facility],[address] [place] [address] 99804 WBC 6.3 x 10EE3/UL Normal 4.5 - 10.8 [facility] Comment on above: Performed By: #### 2 07687 #### [facility],[address] [place] [address] 30826 PTH-Intact SerPl-mCncon Parathyrin.intact [Mass/Vol] 47 pg/mL Normal 15-65 [facility] Comment on above: Order Comment: Speci men Type: BLOOD SPECIMEN Ordering Facility: [facility] Address: [address] [place], [place] [address] Performed By: #### 2 731-8 #### [facility] CLIA [id number] [address] [place] [address] [place] [facility] URIC ACIDon 02-19-2025 Urate [Mass/Vol] 4.6 mg/dL Normal 2.6 - 6.0 [facility] Comment on above: Performed By: #### 2 17186 #### [facility],[address] [place] [address] 98718 URINE CREATININE AND PROTEIN RATIOon 02-19-2025 CREATININE UR <13.00 Normal [facility] Comment on above: Performed By: #### 2 22304 #### [facility],[address] [place] [address] 43884 PC RATIO 0.12 mg/dL Normal 0.00 - 10.00 [facility] Comment on above: Performed By: #### 2 75867 #### [facility],[address] [place] [address] 60447 URINE TOTAL PROTEIN <6.00 Normal 0.00 - 10.00 [facility] Comment on above: Performed By: #### 2 65646 #### [facility],[address] [place] [address] 12261 VITAMIN D, 25 HYDROXYon VitD 52.60 ng/mL Normal 30.00 - 100 [facility] Comment on above: Result Comment: 25-O HD3 [...] D2 Not Established Performed By: #### 2 60771 #### [facility],[address] [place] [address] 62302 CBC + DIFFon 01-15-2025 Baso # 0.02 x10EE3/UL Normal 0.00 - 0.10 [facility] Comment on above: Performed By: #### 2 13654 #### [facility],[address] [place] [address] 27891 Basophils/100 WBC (Bld) 0.3 % Normal 0.0 - 2.0 [facility] Comment on above: Performed By: #### 2 01389 #### [facility],[address] [place] [address] 99218 CBC + DIFF Normal [facility] Comment on above: Result Comment: CBC- COMPLETE BLOOD COUNT Performed By: #### 2 88331 #### [facility],[address] [place] [address] 17966 EO # 0.25 x10EE3/UL Normal 0.00 - 0.50 [facility] Comment on above: Performed By: #### 2 27361 #### [facility],[address] [place] [address] 15504 Eosinophils/100 WBC (Bld) 4.0 % Normal 0.0 - 7.0 [facility] Comment on above: Performed By: #### 2 58852 #### [facility],[address] [place] [address] 75600 Erythrocyte distribution width (RBC) [Ratio] 15.1 % Normal 12.0 - 15.6 [facility] Comment on above: Performed By: #### 2 08439 #### [facility],[address] [place] [address] 85838 Hematocrit (Bld) [Volume fraction] 36.0 % Normal 34.0 - 46.0 [facility] Comment on above: Performed By: #### 2 27618 #### [facility],[address] [place] [address] 63753 Hemoglobin (Bld) [Mass/Vol] 12.2 g/dL Normal 12.0 - 16.0 [facility] Comment on above: Performed By: #### 2 09887 #### [facility],[address] [place] [address] 73733 Lymph # 1.33 x10EE3/UL Normal 0.80 - 2.80 [facility] Comment on above: Performed By: #### 2 25852 #### [facility],[address] [place] [address] 72309 Lymphocytes/100 WBC (Bld) 21.2 % Normal 20.0 - 45.0 [facility] Comment on above: Performed By: #### 2 59313 #### [facility],[address] [place] [address] 63374 MANUAL DIFF N/A Normal [facility] Comment on above: Performed By: #### 2 23195 #### [facility],[address] [place] [address] 71396 MCH (RBC) [Entitic mass] 30 pg Normal 27 - 33 [facility] Comment on above: Performed By: #### 2 13054 #### [facility],[address] [place] [address] 27980 MCHC 34 X10 3 Normal 32 - 36 [facility] Comment on above: Performed By: #### 2 60892 #### [facility],[address] [place] [address] 20119 MCV (RBC) [Entitic vol] 87 fL Normal 80 - 99 [facility] Comment on above: Performed By: #### 2 57093 #### [facility],[address] [place] [address] 71532 Woods # 0.55 x10EE3/UL Normal 0.20 - 1.00 [facility] Comment on above: Performed By: #### 2 77535 #### [facility],[address] [place] [address] 58598 MONOS % 8.8 % Normal 0.0 - 10.0 [facility] Comment on above: Performed By: #### 2 25662 #### [facility],[address] [place] [address] 94843 Morphology Hardy (Bld) [Interp] N/A Normal [facility] Comment on above: Performed By: #### 2 16160 #### [facility],[address] [place] [address] 23666 Neut # 4.13 x10EE3/UL Normal 1.50 - 7.10 [facility] Comment on above: Performed By: #### 2 33329 #### [facility],[address] [place] [address] 41077 Neutrophils/100 WBC (Bld) 65.8 % Normal 46.0 - 76.0 [facility] Comment on above: Performed By: #### 2 21107 #### [facility],[address] [place] [address] 79670 PLATELET 218 x10EE3/UL Normal 150 - 450 [facility] Comment on above: Performed By: #### 2 12563 #### [facility],[address] [place] [address] 54311 Platelet mean volume (Bld) [Entitic vol] 9.0 fL Normal 6.6 - 10.5 [facility] Comment on above: Result Comment: AUTO MATED DIFFERENTIAL Performed By: #### 2 24047 #### [facility],[address] [place] [address] 04341 RBC 4.14 x 10EE6/UL Normal 4.10 - 5.30 [facility] Comment on above: Performed By: #### 2 54689 #### [facility],[address] [place] [address] 04157 WBC 6.3 x 10EE3/UL Normal 4.5 - 10.8 [facility] Comment on above: Performed By: #### 2 20354 #### [facility],[address] [place], [place] [address] CMP with eGFRon 01-15-2025 AGE 79 years Normal [facility] Comment on above: Performed By: #### 2 78703 #### [facility],[address] [place] [address] 62229 Albumin [Mass/Vol] 3.4 g/dL Normal 3.4 - 5.0 [facility] Comment on above: Performed By: #### 2 95315 #### [facility],[address] [place] [address] Albumin/Globulin [Mass ratio] 1.1 {ratio} Normal 0.9 - 1.6 [facility] Comment on above: Performed By: #### 2 67069 #### [facility],[address] [place] [address] 50239 ALK PHOS 129 U/L High 46 - 116 [facility] Comment on above: Performed By: #### 2 28112 #### [facility],[address] [place] [address] 41208 ALT [Catalytic activity/Vol] 19 U/L Normal 16 - 63 [facility] Comment on above: Performed By: #### 2 04559 #### [facility],[address] [place] [address] 23942 Anion gap [Moles/Vol] 13 mmol/L Normal 10 - 20 [facility] Comment on above: Performed By: #### 2 37766 #### [facility],[address] [place] [address] 92510 AST [Catalytic activity/Vol] 18 U/L Normal 13 - 39 [facility] Comment on above: Performed By: #### 2 84151 #### [facility],[address] [place] [address] 08307 B/C RATIO 23 ratio Normal 0 - 30 [facility] Comment on above: Performed By: #### 2 65187 #### [facility],[address] [place] [address] 53150 Bilirubin [Mass/Vol] 2.3 mg/dL High 0.2 - 1.0 [facility] Comment on above: Performed By: #### 2 53489 #### [facility],[address] [place], [place] [address] Calcium [Mass/Vol] 9.2 mg/dL Normal 8.5 - 10.1 [facility] Comment on above: Performed By: #### 2 80474 #### [facility],[address] [place], [place] [address] Chloride [Moles/Vol] 103 mmol/L Normal 98 - 107 [facility] Comment on above: Performed By: #### 2 69235 #### [facility],[address] [place] [address] CMP with eGFR Normal [facility] Comment on above: Result Comment: COMP REHENSIVE METABOLIC PANEL Performed By: #### 2 96956 #### [facility],[address] [place] [address] 31761 CO2 [Moles/Vol] 27.4 mmol/L Normal 21.0 - 32.0 [facility] Comment on above: Performed By: #### 2 12855 #### [facility],[address] [place] [address] 94462 Creatinine [Mass/Vol] 1.09 mg/dL High 0.55 - 1.02 [facility] Comment on above: Performed By: #### 2 14113 #### [facility],[address],[place] [address] eGFR 49 ML/MINUTE Low 60 - 999 [facility] Comment on above: Performed By: #### 2 21108 #### [facility],[address] [place] [address] 76412 eGFR(AA) 59 ML/MINUTE Low 60 - 999 [facility] Comment on above: Result Comment: ACCO RDING TO THE NATIONAL KIDNEY DISEASE EDUCATION PROGRAM(NKDE), A NORMAL eGFR IS A VALUE GREATER THAN OR EQUAL TO 60 ML/MIN/1.73 SQ METERS. CHRONIC KIDNEY DISEASE: <60mL/MIN/1.73 SQ METERS KIDNEY FAILURE: <15mL/MIN/1.73 SQ METERS THIS TEST SHOULD ONLY BE USED FOR PATIENTS 18 YEARS OF AGE AND OLDER. Performed By: #### 2 66923 #### [facility],[address] [place] [address] 77364 Globulin (S) [Mass/Vol] 3.1 g/dL Normal 1.5 - 3.8 [facility] Comment on above: Performed By: #### 2 80537 #### [facility],[address] [place] [address] 37487 Glucose [Mass/Vol] 129 mg/dL High 74 - 106 [facility] Comment on above: Performed By: #### 2 72536 #### [facility],[address] [place] [address] 17974 Potassium [Moles/Vol] 3.9 mmol/L Normal 3.5 - 5.1 [facility] Comment on above: Performed By: #### 2 84037 #### [facility],[address] [place] [address] 08380 Protein [Mass/Vol] 6.5 g/dL Normal 6.4 - 8.2 [facility] Comment on above: Performed By: #### 2 06587 #### [facility],[address] [place] [address] 49864 Sodium [Moles/Vol] 139 mmol/L Normal 136 - 145 [facility] Comment on above: Performed By: #### 2 78252 #### [facility],[address] [place] [address] 73359 Urea nitrogen [Mass/Vol] 25 mg/dL High 7 - 18 [facility] Comment on above: Performed By: #### 2 33171 #### [facility],[address] [place] [address] 99639 HEMOGLOBIN A1C (POM)on 01-15 Glucose [Mass/Vol] 145.6 mg/dL High 0.0 - 0.0 [facility] Comment on above: Result Comment: BLDo HEMOGLOBIN A1C REFERENCE RANGESBLDo Suggested Diagnosis HbA1c(%) HbA1C (mmol/mol Diabetic >/=6.5 >/=48 Prediabetes 5.7 - 6.4 39 - 47 Normal <5.7 <39 Performed By: #### 2 32778 #### [facility],[address] [place] [address] 95648 HbA1c (Bld) [Mass fraction] 6.7 % High 0.0 - 6.5 [facility] Comment on above: Performed By: #### 2 71573 #### [facility],[address] [place] [address] 91756 LIPID PROFILEon 01-15-2025 Cholesterol [Mass/Vol] 107 mg/dL Normal 0 - 240 [facility] Comment on above: Performed By: #### 2 31366 #### [facility],[address] [place] [address] 68421 Cholesterol in HDL [Mass/Vol] 47 mg/dL Normal 40 - 60 [facility] Comment on above: Performed By: #### 2 32842 #### [facility],[address] [place] [address] 02131 Cholesterol in LDL [Mass/Vol] 37 mg/dL Normal 0 - 129 [facility] Comment on above: Performed By: #### 2 96199 #### [facility],[address] [place] [address] 48246 Cholesterol.total/Ch olesterol in HDL [Mass ratio] 2.3 {ratio} Normal 0.0 - 5.0 [facility] Comment on above: Performed By: #### 2 26622 #### [facility],[address] [place] [address] 96562 Lipid 1996 panel Normal [facility] Comment on above: Result Comment: LIPI D PROFILE Performed By: #### 2 37126 #### [facility],[address] [place] [address] Triglyceride [Mass/Vol] 115 mg/dL Normal 0 - 150 [facility] Comment on above: Performed By: #### 2 80695 #### [facility],[address] [place] [address] MAGNESIUMon 01-15-2025 Magnesium [Mass/Vol] 1.9 mg/dL Normal 1.8 - 2.4 [facility] Comment on above: Performed By: #### 2 52641 #### [facility],[address] [place], [place] [id number] TSHon 01-15-2025 TSH Qn 3.05 m[IU]/L Normal 0.35 - 3.74 [facility] Comment on above: Performed By: #### 2 96623 #### [facility],[address] [place], [place] [address] URINE MICROALBUMIN W/CREATIN INE, RANDOMon 01-15-2025 CREATININE UR 44.96 mg/dl Normal [facility] Comment on above: Performed By: #### 2 49296 #### [facility],[address] [place] [address] 85113 MICROALBUMIN UR 0.2 mg/dL Normal 0.1 - 11.6 [facility] Comment on above: Performed By: #### 2 88212 #### [facility],[address] [place] [address] 32594 UACR 4 mg/g Normal [facility] Comment on above: Performed By: #### 2 66298 #### [facility],[address] [place] [address] 18245 VITAMIN B-12on 01-15-2025 Cobalamin (Vitamin B12) [Mass/Vol] 1142 pg/mL High 193 - 986 [facility] Comment on above: Performed By: #### 2 15510 #### [facility],[address] [place] [address] 05594 VITAMIN D, 25 HYDROXYon 12-20 VitD 54.90 ng/mL Normal 30.00 - 100 [facility] Comment on above: Result Comment: 25-O HD3 [...] D2 Not Established Performed By: #### 2 76807 #### [facility],[address] [place] [address] [place] [address] BMP with eGFR DAILYon 2024 AGE 79 years Normal [facility] Comment on above: Performed By: #### 2 03975 #### [facility],[address] [place] [address] 50111 Anion gap [Moles/Vol] 11 mmol/L Normal 10 - 20 [facility] Comment on above: Performed By: #### 2 40227 #### [facility],[address] [place] [address] 80060 BMP with eGFR DAILY Normal [facility] Comment on above: Result Comment: BASI C METABOLIC PANEL Performed By: #### 2 83843 #### [facility],[address] [place] [address] 97437 Calcium [Mass/Vol] 8.7 mg/dL Normal 8.5 - 10.1 [facility] Comment on above: Performed By: #### 2 32653 #### [facility],[address] [place] [address] 07646 Chloride [Moles/Vol] 103 mmol/L Normal 98 - 107 [facility] Comment on above: Performed By: #### 2 92726 #### [facility],[address] [place] [address] 75572 CO2 [Moles/Vol] 26.3 mmol/L Normal 21.0 - 32.0 [facility] Comment on above: Performed By: #### 2 53582 #### [facility],[address] [place] [address] 21348 Creatinine [Mass/Vol] 0.92 mg/dL Normal 0.55 - 1.02 [facility] Comment on above: Performed By: #### 2 44096 #### [facility],[address] [place] [address] 24037 eGFR 59 ML/MINUTE Low 60 - 999 [facility] Comment on above: Performed By: #### 2 17626 #### [facility],[address] [place] [address] 70855 GFR/1.73 sq M.predicted among non-blacks MDRD (S/P/Bld) [Vol rate/Area] mL/min/{1.73_m2} Normal 60 - 999 [facility] Comment on above: Result Comment: ACCO RDING TO THE NATIONAL KIDNEY DISEASE EDUCATION PROGRAM(NKDE), A NORMAL eGFR IS A VALUE GREATER THAN OR EQUAL TO 60 ML/MIN/1.73 SQ METERS. CHRONIC KIDNEY DISEASE: <60mL/MIN/1.73 SQ METERS KIDNEY FAILURE: <15mL/MIN/1.73 SQ METERS THIS TEST SHOULD ONLY BE USED FOR PATIENTS 18 YEARS OF AGE AND OLDER. Performed By: #### 2 15620 #### [facility],[address] [place] [address] 32914 Glucose [Mass/Vol] 163 mg/dL High 74 - 106 [facility] Comment on above: Performed By: #### 2 29939 #### [facility],[address] [place] [address] 09445 Potassium [Moles/Vol] 3.7 mmol/L Normal 3.5 - 5.1 [facility] Comment on above: Performed By: #### 2 85344 #### [facility],[address] [place] [address] 59484 Sodium [Moles/Vol] 137 mmol/L Normal 136 - 145 [facility] Comment on above: Performed By: #### 2 51896 #### [facility],[address] [place] [address] 89515 Urea nitrogen [Mass/Vol] 21 mg/dL High - [facility] Comment on above: Performed By: #### 2 09130 #### [facility],[address] [place] [address] 12294 CBC + DIFFon 12-09-2024 Baso # 0.01 x10EE3/UL Normal 0.00 - 0.10 [facility] Comment on above: Performed By: #### 2 69813 #### [facility],[address] [place] [address] 98370 Basophils/100 WBC (Bld) 0.2 % Normal 0.0 - 2.0 [facility] Comment on above: Performed By: #### 2 15372 #### [facility],[address] [place] [address] 47297 CBC + DIFF Normal [facility] Comment on above: Result Comment: CBC- COMPLETE BLOOD COUNT Performed By: #### 2 47981 #### [facility],[address] [place] [address] 96725 EO # 0.11 x10EE3/UL Normal 0.00 - 0.50 [facility] Comment on above: Performed By: #### 2 56635 #### [facility],[address] [place] [address] 70542 Eosinophils/100 WBC (Bld) 1.4 % Normal 0.0 - 7.0 [facility] Comment on above: Performed By: #### 2 81224 #### [facility],[address] [place] [address] Erythrocyte distribution width (RBC) [Ratio] 14.2 % Normal 12.0 - 15.6 [facility] Comment on above: Performed By: #### 2 88047 #### [facility],[address] [place] [address] Hematocrit (Bld) [Volume fraction] 33.2 % Low 34.0 - 46.0 [facility] Comment on above: Performed By: #### 2 85126 #### [facility],[address] [place] [address] Hemoglobin (Bld) [Mass/Vol] 11.3 g/dL Low 12.0 - 16.0 [facility] Comment on above: Result Comment: TEST REPEATED Performed By: #### 2 28713 #### [facility],[address] [place], [place] [address] Lymph # 0.73 x10EE3/UL Low 0.80 - 2.80 [facility] Comment on above: Performed By: #### 2 93590 #### [facility],[address] [place] [address] Lymphocytes/100 WBC (Bld) 9.8 % Low 20.0 - 45.0 [facility] Comment on above: Performed By: #### 2 89367 #### [facility],[address] [place], [place] [address] MANUAL DIFF N/A Normal [facility] Comment on above: Performed By: #### 2 23727 #### [facility],[address] [place], [place] [address] MCH (RBC) [Entitic mass] 29 pg Normal 27 - 33 [facility] Comment on above: Performed By: #### 2 35772 #### [facility],[address] [place], [place] [address] MCHC 34 X10 3 Normal 32 - 36 [facility] Comment on above: Performed By: #### 2 22377 #### [facility],[address] [place] [address] MCV (RBC) [Entitic vol] 86 fL Normal 80 - 99 [facility] Comment on above: Performed By: #### 2 42993 #### [facility],[address] [place] [address] Woods # 0.50 x10EE3/UL Normal 0.20 - 1.00 [facility] Comment on above: Performed By: #### 2 57031 #### [facility],[address] [place] [address] MONOS % 6.8 % Normal 0.0 - 10.0 [facility] Comment on above: Performed By: #### 2 74084 #### [facility],[address] [place] [address] Morphology Hardy (Bld) [Interp] N/A Normal [facility] Comment on above: Performed By: #### 2 83431 #### [facility],[address] [place] [address] Neut # 6.10 x10EE3/UL Normal 1.50 - 7.10 [facility] Comment on above: Performed By: #### 2 76647 #### [facility],[address] [place] [address] Neutrophils/100 WBC (Bld) 81.9 % High 46.0 - 76.0 [facility] Comment on above: Performed By: #### 2 87130 #### [facility],[address] [place] [address] PLATELET 182 x10EE3/UL Normal 150 - 450 [facility] Comment on above: Performed By: #### 2 50623 #### [facility],[address] [place] [address] Platelet mean volume (Bld) [Entitic vol] 7.9 fL Normal 6.6 - 10.5 [facility] Comment on above: Result Comment: AUTO MATED DIFFERENTIAL Performed By: #### 2 59433 #### [facility],[address] [place] [address] 12212 RBC 3.88 x 10EE6/UL Low 4.10 - 5.30 [facility] Comment on above: Performed By: #### 2 62168 #### [facility],[address] [place] [address] 02008 WBC 7.5 x 10EE3/UL Normal 4.5 - 10.8 [facility] Comment on above: Performed By: #### 2 24911 #### [facility],[address] [place] [address] 35233 CV ECHO COMPLETE CV ECHO COMPLETE [place] [address] Patient: CARMEN HARVEY Phone#: : 1945 Age: 79 Gender: F Pt. Type: In Account: [id number] Location: [facility] Ordering: DR. TIRSO BRANCH Exam Date: 12/09/2024/9:16 Family Phys: ANN MARIE CASTANO Charge Code: [id number] Physician: Jewell Order #: [id number] Dose#: PROCEDURE: ECHOCARDIOGRAM WITH DOPPLER AND COLOR FLOW HISTORY: HYSTERECTOMY, TUBAL, CHOLECYSTECTOMY open heart INDICATIONS: Chest pain COMPARISON: None. TECHNIQUE: A 2-D ultrasound, color spectral Doppler and M-mode evaluation of the heart and great vessels. PATIENT MEASUREMENTS: Height (in.): 59 BSA: 1.78 Weight (lbs.): 185 BP: 150/77 Log Scaler: EMMANUEL M MODE 2D MEASUREMENTS AND CALCULATIONS: [...] 79 Gender: F Pt. Type: In Account: [id number] Location: 010 Ordering: DR. TIRSO BRANCH Exam Date: 12/09/2024/9:16 Family Phys: ANN MARIE PHELPSARABELLAAundrea Charge Code: [id number] Physician: Jewell Order #: [id number] Dose#: MV mean P.66 mm[Hg] MV V2 VTI: 14.61 cm Lat Peak E' Rdori 12 cm/seconds Septal Peak E' RODRI AORTIC [...] 79 Gender: F Pt. Type: In Account: [id number] Location: [facility] Ordering: DR. TIRSO BRANCH Exam Date: 12/09/2024/9:16 Family Phys: ANN MARIE OMAIRA Charge Code: [id number] Physician: Jewell Order #: [id number] Dose#: MITRAL VALVE: There is mild mitral [...] VALENTINE MD on 12/09/2024 at 10:26 Normal [facility] HEMOGLOBIN A1C (POM)on 12-09 Glucose [Mass/Vol] 142.7 mg/dL High 0.0 - 0.0 [facility] Comment on above: Result Comment: BLDo HEMOGLOBIN A1C REFERENCE RANGESBLDo Suggested Diagnosis HbA1c(%) HbA1C (mmol/mol Diabetic >/=6.5 >/=48 Prediabetes 5.7 - 6.4 39 - 47 Normal <5.7 <39 Performed By: #### 2 07694 #### [facility],[address] [place] [address] 59518 HbA1c (Bld) [Mass fraction] 6.6 % High 0.0 - 6.5 [facility] Comment on above: Performed By: #### 2 32645 #### [facility],[address] [place] [address] 22490 LIPID PROFILEon 12-09-2024 Cholesterol [Mass/Vol] 107 mg/dL Normal 0 - 240 [facility] Comment on above: Performed By: #### 2 49369 #### [facility],[address] [place] [address] 92643 Cholesterol in HDL [Mass/Vol] 51 mg/dL Normal 40 - 60 [facility] Comment on above: Performed By: #### 2 48794 #### [facility],[address] [place] [address] 09743 Cholesterol in LDL [Mass/Vol] 32 mg/dL Normal 0 - 129 [facility] Comment on above: Performed By: #### 2 47761 #### [facility],[address] [place] [address] 34630 Cholesterol.total/Ch olesterol in HDL [Mass ratio] 2.1 {ratio} Normal 0.0 - 5.0 [facility] Comment on above: Performed By: #### 2 39013 #### [facility],[address] [place] [address] 63831 Lipid 1996 panel Normal [facility] Comment on above: Result Comment: LIPI D PROFILE Performed By: #### 2 60958 #### [facility],[address] [place] [address] 38519 Triglyceride [Mass/Vol] 118 mg/dL Normal 0 - 150 [facility] Comment on above: Performed By: #### 2 50535 #### [facility],[address] [place] [address] 28111 [facility] CARDIAC STRESS (SPECT) W/[place] [address] Patient: CARMEN HARVEY Phone#: : 1945 Age: 79 Gender: F Pt. Type: Out Account: [id number] Location: [facility] Ordering: DR. TIRSO BRANCH Exam Date: 12/09/2024/7:51 Family Phys: ANN MARIE CASTANO Charge Code: [id number] Physician: Jewell Order #: [id number] Dose#: PROCEDURE: CARDIAC STRESS SPECT WITH LEXISCAN [...] Gender: F MRN: Pt. Type: Out Account: [id number] Location: 010 Ordering: DR. TIRSO BRANCH Exam Date: 12/09/2024/7:51 Family Phys: ANN MARIE CASTANO Charge Code: [id number] Physician: Jewell Order #: [id number] Dose#: 5. TID ratio is normal. Dictated by: KAUSHIK VALENTINE MD on 12/09/2024 at 11:08 Approved by: KAUSHIK VALENTINE MD on 12/09/2024 at 11:23 Normal [facility] NM EXERCISE STRESS TEST (W/C ARDIAC STUDYon 12-09-2024 NM EXERCISE STRESS TEST (W/CARDIAC STUDY [place] [address] Patient: CARMEN HARVEY Phone#: : 1945 Age: 79 Gender: F MRN: Pt. Type: In Account: [id number] Location: 010 Ordering: DR. TIRSO BRANCH Exam Date: 12/09/2024/7:51 Family Phys: ANN MARIE CASTANO Charge Code: [id number] Physician: Jewell Order #: [id number] Dose#: PROCEDURE: ELECTROCARDIOGRAM STRESS TEST HISTORY: HYSTERECTOMY, [...] 79 Gender: F Pt. Type: In Account: [id number] Location: [facility] Ordering: DR. TIRSO BRANCH Exam Date: 12/09/2024/7:51 Family Phys: ANN MARIE OMAIRA Charge Code: [id number] Physician: Jewell Order #: [id number] Dose#: 1. Patient not complain of any chest pain with stress. She had nausea which improved during recovery. 2. Patient had normal physiologic response with stress 3. Stress EKG is positive for inducible ischemia 4. Nuclear images will be reported separately. Dictated by: KAUSHIK VALENTINE MD on 12/09/2024 at 9:36 Approved by: KAUSHIK VALENTINE MD on 12/09/2024 at 9:42 Normal [facility] ED MED ADMINISTRATION DETAIL on 12-08-2024 ED MED ADMINISTRATION DETAIL Store Product Demonstrator Medication Administration Record [address] [place] [address] [id number] 12/07/2024 Patient: CARMEN HARVEY Sex: Female : 1945 Age: 79y MEASUREMENTS: Wt: 99.8 kg ALLERGIES: Iodinated Contrast Media, Macrodantin, Albion, Tessalon Perles, codeine, lisinopril, morphine, tramadol Medication [...] Coleman R.N. Scanned 1 of 1 Normal [facility] ED NURSES CLINICAL NOTEon ED NURSES CLINICAL NOTE Nurse Narrative Nurse Clinical [address] [address] [id number] 12/07/2024 21:58:00 Patient: CARMEN HARVEY Sex: Female [...] 12/08/24 KERRI Coleman R.N.Correction -- 00:44 12/08/24 [facility] Gilmar Coleman R.N. Jardiance 10 mg tablet: [...] Contrast Media -- 22:01 12/07/24 EDT Arlyn Lizama.NLesia Macrodantin -- 22:01 12/07/24 EDT Sophia LizamaN. lisinopril -- 22:01 12/07/24 EDT Arlyn Lizama.N. tramadol -- 22:02 12/07/24 EDT Arlyn Lizama.N. Albion -- 22:02 12/07/24 EDT Arlyn Lizama.Supriya Tessalon Perles -- 22:02 12/07/24 EDT Raad Armenta R.Supriya Problems: Coronary artery bypass grafting (procedure) -- (more content not included)... Normal [facility] ED ORDER SHEET (CPOE ONLY)on 12-08-2024 ED ORDER SHEET (CPOE ONLY) Order Sheet Order Sheet [address] [address] [id number] 12/07/2024 Patient: CARMEN HARVEY Sex: Female : 1945 Age: 79y MEASUREMENTS: Wt: 99.8 kg ALLERGIES: Iodinated Contrast Media, Macrodantin, Albion, Tessalon Perles, codeine, lisinopril, morphine, tramadol MEDICATION/IV/DRIP/FLUID ORDERS Order Description Priority Entered Acknowledged Completed Aspirin PO [id number] mg (NOW 22:13 12/07/2024 22:21 22:31 x1) [...] 12/07/2024 Erik Beltran Seth Lapp, R.N. E.M.T.-[employer] Technology Manager 22:13 12/07/2024 22:15 12/07/2024 22:22 12/07/2024 Erik [...] (12/08/2024 05:47 EDT)] 4 of 4 Normal [facility] ED PHYSICIAN CLINICAL REPORT on 12-08-2024 ED PHYSICIAN CLINICAL REPORT Narrative Physician Clinical Narrative [address] [address] [id number] 12/07/2024 21:58:00 Patient: CARMEN HARVEY Sex: Female [...] codeine Iodinated Contrast Media lisinopril Macrodantin morphine Albion Tessalon Perles tramadol SOCIAL HISTORY Heavy tobacco [...] 12/07/2024 22: (more content not included)... Normal [facility] ED SUPER BILLon 12-08-2024 [facility] [address] [address] [id number] 12/07/2024 Patient: CARMEN HARVEY Sex: Female : 1945 Age: 79y Item Facility Professional Category Description Code Code Quantity Fee Total Nurse/E/M EMERGENCY 645605 1 $0.00 $0.00 DEPARTMENT VISIT HIGH/URGENT SEVERITY (61301-23) Nurse/IV/IM/Infusions IVP initial 260336 1 $0.00 $0.00 (15626) Grand Total $0.00 Providers Rom Gomez D.O. Chief Complaint CHEST PAIN. Complaining of chest pressure midsternal. Principal Diagnosis Chest pain characterized as pressure. [address] [facility] ICD-10 Codes R07.89: Other chest pain 2 of 2 Normal [facility] ED VISIT SUMMARYon ED VISIT SUMMARY Visit Overview Visit Overview [address] [address] [id number] 12/07/2024 Patient: CARMEN HARVEY Sex: Female : 1945 Age: 79y 12/08/2024 05:47 AM EDT ED Arrival:21:58 12/07/2024 EDT Status:not Recent Travel:no Language:eng Adv Directive:No Isolation Status: Ethnicity:N Fall Risk:no risk Infectious Disease Exposure:no Measurements:220.0 lb / 99.8 kg Self-Harm Status:risk Sepsis Screen:negative Chief Complaint:NAUSEA ALLERGIES codeine Iodinated Contrast Media lisinopril Macrodantin morphine Albion Tessalon Perles tramadol HOME MEDICATIONS albuterol sulfate [...] PAIN CHARACTERIZED PRESSURE 4 of 4 Normal [facility] ED VITALS FLOW SHEETon 12-08 ED VITALS FLOW SHEET Vitals Vital Sign Flow Sheet [address] [place] [address] [id number] 12/07/2024 Patient: CARMEN HARVEY Sex: Female : 1945 Age: 79y Measurements Wt: 99.8 kg Measured Time BP MAP HR RR O2Sat ETCO2 Temp Pain GCS RTS 01:07 12/08/2024 106/46 66 82 18 98% 22:07 12/07/2024 115/57 76 89 16 98% 97.7 F 0 1 of 1 Normal [facility] TROPONINon 12-08-2024 HS TROPONIN 4.9 pg/mL Normal 0.0 - 51.4 [facility] Comment on above: Performed By: #### 2 40867 #### [facility],[address] [place] [address] TROPONIN I, HIGH SENSITIVITY on 12-08-2024 HS TROPONIN <4.0 Normal 0.0 - 51.4 [facility] Comment on above: Performed By: #### 2 51226 #### [facility],[address] [place] [address] CBC + DIFFon 12-07-2024 Baso # 0.02 x10EE3/UL Normal 0.00 - 0.10 [facility] Comment on above: Performed By: #### 2 95601 #### [facility],[address] [place] [address] 55211 Basophils/100 WBC (Bld) 0.1 % Normal 0.0 - 2.0 [facility] Comment on above: Performed By: #### 2 36060 #### [facility],[address] [place] [address] 56500 CBC + DIFF Normal [facility] Comment on above: Result Comment: CBC- COMPLETE BLOOD COUNT Performed By: #### 2 15192 #### [facility],[address] [place] [address] 95169 EO # 0.17 x10EE3/UL Normal 0.00 - 0.50 [facility] Comment on above: Performed By: #### 2 79546 #### [facility],[address] [place] [address] 70347 Eosinophils/100 WBC (Bld) 1.0 % Normal 0.0 - 7.0 [facility] Comment on above: Performed By: #### 2 68964 #### [facility],[address] [place], [place] [address] Erythrocyte distribution width (RBC) [Ratio] 14.7 % Normal 12.0 - 15.6 [facility] Comment on above: Performed By: #### 2 94404 #### [facility],[address] [place], [place] [address] Hematocrit (Bld) [Volume fraction] 41.9 % Normal 34.0 - 46.0 [facility] Comment on above: Performed By: #### 2 09823 #### [facility],[address] [place] [address] Hemoglobin (Bld) [Mass/Vol] 14.2 g/dL Normal 12.0 - 16.0 [facility] Comment on above: Performed By: #### 2 86274 #### [facility],[address] [place] [address] Lymph # 1.40 x10EE3/UL Normal 0.80 - 2.80 [facility] Comment on above: Performed By: #### 2 59182 #### [facility],[address] [place], [place] [address] Lymphocytes/100 WBC (Bld) 8.0 % Low 20.0 - 45.0 [facility] Comment on above: Performed By: #### 2 62602 #### [facility],[address] [place], [place] [address] MANUAL DIFF N/A Normal [facility] Comment on above: Performed By: #### 2 71027 #### [facility],[address] [place] [address] 12262 MCH (RBC) [Entitic mass] 29 pg Normal 27 - 33 [facility] Comment on above: Performed By: #### 2 98701 #### [facility],[address] [place] [address] 47165 MCHC 34 X10 3 Normal 32 - 36 [facility] Comment on above: Performed By: #### 2 56877 #### [facility],[address] [place] [address] 73436 MCV (RBC) [Entitic vol] 87 fL Normal 80 - 99 [facility] Comment on above: Performed By: #### 2 17614 #### [facility],[address] [place] [address] 70959 Woods # 1.28 x10EE3/UL High 0.20 - 1.00 [facility] Comment on above: Performed By: #### 2 69557 #### [facility],[address] [place] [address] 20653 MONOS % 7.3 % Normal 0.0 - 10.0 [facility] Comment on above: Performed By: #### 2 63960 #### [facility],[address] [place] [address] 78177 Morphology Hardy (Bld) [Interp] N/A Normal [facility] Comment on above: Performed By: #### 2 38876 #### [facility],[address] [place] [address] 95921 Neut # 14.75 x10EE3/UL High 1.50 - 7.10 [facility] Comment on above: Performed By: #### 2 83931 #### [facility],[address] [place] [address] 24832 Neutrophils/100 WBC (Bld) 83.7 % High 46.0 - 76.0 [facility] Comment on above: Performed By: #### 2 78646 #### [facility],[address] [place] [address] 91508 PLATELET 278 x10EE3/UL Normal 150 - 450 [facility] Comment on above: Performed By: #### 2 55268 #### [facility],[address] [place] [address] 51910 Platelet mean volume (Bld) [Entitic vol] 8.3 fL Normal 6.6 - 10.5 [facility] Comment on above: Result Comment: AUTO MATED DIFFERENTIAL Performed By: #### 2 74042 #### [facility],[address] [place] [address] 07262 RBC 4.83 x 10EE6/UL Normal 4.10 - 5.30 [facility] Comment on above: Performed By: #### 2 93865 #### [facility],[address] [place] [address] 77923 WBC 17.6 x 10EE3/UL High 4.5 - 10.8 [facility] Comment on above: Performed By: #### 2 55455 #### [facility],[address] [place] [address] 80116 CHEST 1 VIEWon 12-07-2024 CHEST 1 VIEW [place] [address] Patient: CARMEN HARVEY Phone#: : 1945 Age: 79 Gender: F Pt. Type: ER Account: [id number] Location: [facility] Ordering: ROM GOMEZ Exam Date: 12/07/2024/23:03 Family Phys: ANN MARIE PHELPSBRIDGETTE Charge Code: [id number] Physician: Jewell Order #: [id number] Dose#: PROCEDURE: X-RAY CHEST 1 VIEW COMPARISON: [facility], , CHEST 1 VIEW, 06/02/2020, 15:20. [...] Mederos MD on 12/08/2024 at 22:21 Normal [facility] CMP with eGFRon 12-07-2024 AGE 79 years Normal [facility] Comment on above: Performed By: #### 2 75514 #### [facility],[address] [place] [address] 59211 Albumin [Mass/Vol] 3.7 g/dL Normal 3.4 - 5.0 [facility] Comment on above: Performed By: #### 2 07480 #### [facility],[address] [place] [address] 06707 Albumin/Globulin [Mass ratio] 1.0 {ratio} Normal 0.9 - 1.6 [facility] Comment on above: Performed By: #### 2 55488 #### [facility],[address] [place] [address] 42121 ALK PHOS 113 U/L Normal 46 - 116 [facility] Comment on above: Performed By: #### 2 46300 #### [facility],[address] [place] [address] 66731 ALT [Catalytic activity/Vol] 31 U/L Normal 16 - 63 [facility] Comment on above: Performed By: #### 2 44080 #### [facility],[address] [place] [address] 40358 Anion gap [Moles/Vol] 15 mmol/L Normal 10 - 20 [facility] Comment on above: Performed By: #### 2 42398 #### [facility],[address] [place] [address] 55900 AST [Catalytic activity/Vol] 30 U/L Normal 13 - 39 [facility] Comment on above: Performed By: #### 2 90586 #### [facility],[address] [place] [address] 61689 B/C RATIO 24 ratio Normal 0 - 30 [facility] Comment on above: Performed By: #### 2 00617 #### [facility],[address] [place] [address] 29762 Bilirubin [Mass/Vol] 1.9 mg/dL High 0.2 - 1.0 [facility] Comment on above: Performed By: #### 2 99826 #### [facility],[address] [place] [address] 11009 Calcium [Mass/Vol] 9.6 mg/dL Normal 8.5 - 10.1 [facility] Comment on above: Performed By: #### 2 75904 #### [facility],[address] [place] [address] 83156 Chloride [Moles/Vol] 105 mmol/L Normal 98 - 107 [facility] Comment on above: Performed By: #### 2 58456 #### [facility],[address] [place], [place] [id number] CMP with eGFR Normal [facility] Comment on above: Result Comment: COMP REHENSIVE METABOLIC PANEL Performed By: #### 2 97547 #### [facility],[address] [place] [address] 10128 CO2 [Moles/Vol] 25.8 mmol/L Normal 21.0 - 32.0 [facility] Comment on above: Performed By: #### 2 74679 #### [facility],[address] [place] [address] 17471 Creatinine [Mass/Vol] 1.16 mg/dL High 0.55 - 1.02 [facility] Comment on above: Performed By: #### 2 39805 #### [facility],[address] [place] [address] 99527 eGFR 45 ML/MINUTE Low 60 - 999 [facility] Comment on above: Performed By: #### 2 80394 #### [facility],[address] [place] [address] 00980 eGFR(AA) 55 ML/MINUTE Low 60 - 999 [facility] Comment on above: Result Comment: ACCO RDING TO THE NATIONAL KIDNEY DISEASE EDUCATION PROGRAM(NKDE), A NORMAL eGFR IS A VALUE GREATER THAN OR EQUAL TO 60 ML/MIN/1.73 SQ METERS. CHRONIC KIDNEY DISEASE: <60mL/MIN/1.73 SQ METERS KIDNEY FAILURE: <15mL/MIN/1.73 SQ METERS THIS TEST SHOULD ONLY BE USED FOR PATIENTS 18 YEARS OF AGE AND OLDER. Performed By: #### 2 84978 #### [facility],[address] [place] [address] 35871 Globulin (S) [Mass/Vol] 3.7 g/dL Normal 1.5 - 3.8 [facility] Comment on above: Performed By: #### 2 36021 #### [facility],[address] [place] [address] 70242 Glucose [Mass/Vol] 122 mg/dL High 74 - 106 [facility] Comment on above: Performed By: #### 2 68231 #### [facility],[address] [place] [address] 54573 Potassium [Moles/Vol] 3.1 mmol/L Low 3.5 - 5.1 [facility] Comment on above: Performed By: #### 2 94718 #### [facility],[address] [place] [address] 74103 Protein [Mass/Vol] 7.4 g/dL Normal 6.4 - 8.2 [facility] Comment on above: Performed By: #### 2 51815 #### [facility],[address] [place] [address] 05205 Sodium [Moles/Vol] 143 mmol/L Normal 136 - 145 [facility] Comment on above: Performed By: #### 2 35040 #### [facility],[address] [place] [address] 29462 Urea nitrogen [Mass/Vol] 28 mg/dL High 7 - 18 [facility] Comment on above: Performed By: #### 2 13900 #### [facility],[address] [place] [address] 42215 CORONAVIRUS (SARS) ANTIGEN T ESTon 12-07-2024 EXTERNAL QC DONE? YES Normal [facility] Comment on above: Performed By: #### 2 28097 #### [facility],[address] [place] [address] 50369 INTERNAL CONTROL PASS Normal [facility] Comment on above: Performed By: #### 2 06375 #### [facility],[address] [place] [address] 06891 SARS ANTIGEN Negative Normal NORMAL: NEGATIVE [facility] Comment on above: Performed By: #### 2 58221 #### [facility],[address] [place] [address] 57393 SEND TO ? NO Normal [facility] Comment on above: Result Comment: SARS -CoV-2 THIS TEST IS BEING USED UNDER THE FDA EUA PROCEDURE. THIS ASSAY HAS BEEN VALIDATED AT [facility] FOR USE WITH NASAL AND NASOPHARYNGEAL SWAB [...] PUBLIC HEALTH AUTHORITIES. Performed By: #### 2 84753 #### [facility],[address] [place] [address] 67117 D-DIMER, QUANTITATIVEon - D-DIMER QUANT <200 Normal 0 - 230 [facility] Comment on above: Performed By: #### 2 69085 #### [facility],[address] [place] [address] 44076 D-DIMER, QUANTITATIVE Normal [facility] Comment on above: Result Comment: LUIZ T D-DIMER Performed By: #### 2 19042 #### [address] [address] INFLUENZA VIRUS RAPID A/Bon 12-07-2024 INFLUENZA VIRUS [...] TO THREE DAYS. RESULT CRITICAL? NO Normal [facility] Comment on above: Performed By: #### 2 98488 #### [facility],[address] [place] [address] 86922 LIPASEon 12-07-2024 Lipase [Catalytic activity/Vol] 29.0 U/L Normal 15.0 - 78.0 [facility] Comment on above: Result Comment: *PLE ASE NOTE THAT RANGES FOR LIPASE HAVE CHANGED OF 08/18/23 DUE TO AN ASSAY UPDATE BY THE PLATFORM BEATER.THE NEW ASSAY RANGE IS 6-250 U/L, WITH A REFERENCE RANGE OF 16-77 U/L. Performed By: #### 2 59743 #### [facility],[address] [place] [address] NT-proBNPon 12-07-2024 Natriuretic peptide B (Bld) [Mass/Vol] 59 pg/mL Normal 0 - 450 [facility] Comment on above: Performed By: #### 2 34977 #### [facility],[address] [place] [address] TROPONINon 12-07-2024 HS TROPONIN <4.0 Normal 0.0 - 51.4 [facility] Comment on above: Performed By: #### 2 71657 #### [facility],[address] [place], [place] [address] EVE SCREEN, SERUM [CCL]on MPA Result No M protein is identified. Normal No M protein is identifie [facility] Comment on above: Performed By: #### 2 12126 #### [facility],[address] [place] [address] Staff Review Reviewed by Minerva hernandez M.D. Normal [facility] Comment on above: Result Comment: [facility] [address] [place] [address] Drew Nj III, M.D. [id number] Performed By: #### 2 30300 #### [facility],[address] [place] [address] 47482 PROTEIN ELECTROPHORESIS , SE RUM [CCL]on 08-26-2024 Albumin [Mass/Vol] 3.82 g/dL Normal 3.43-5.41 [facility] Comment on above: Performed By: #### 2 84623 #### [facility],[address] [place] [address] 04148 Alpha 1 Globulin 0.22 g/dL Normal 0.18-0.43 [facility] Comment on above: Performed By: #### 2 16137 #### [facility],[address] [place] [address] 87632 Alpha 2 Globulin 0.82 g/dL Normal 0.42-0.98 [facility] Comment on above: Performed By: #### 2 40282 #### [facility],[address] [place] [address] 76195 Beta Globulin 0.91 g/dL Normal 0.61-1.17 [facility] Comment on above: Performed By: #### 2 22765 #### [facility],[address] [place] [address] 78668 Gamma Globulin 0.72 g/dL Normal 0.53-1.51 [facility] Comment on above: Performed By: #### 2 68616 #### [facility],[address] [place], [place] [address] Interpretation No definitive M prot ein is identified on protein electrophoresis. Normal No definitive M protein i [facility] Comment on above: Performed By: #### 2 33697 #### [facility],[address] [place] [address] 99426 M Protein Location See Below Normal [facility] Comment on above: Result Comment: Not Applicable. Performed By: #### 2 78116 #### [facility],[address] [place] [address] 25926 M-Protein Concentration 0.00 g/dL Normal <=0.00 [facility] Comment on above: Performed By: #### 2 00785 #### [facility],[address] [place] [address] 35271 Protein [Mass/Vol] 6.5 g/dL Normal 6.3-8.0 [facility] Comment on above: Performed By: #### 2 12216 #### [facility],[address] [place] [address] 64588 SPE Staff Review Reviewed by Minerva hernandez M.D. Normal [facility] Comment on above: Result Comment: Seru m electrophoresis test was performed using the [employer] V8 NEXUS capillary electrophoresis method. Results obtained with different assay methods or kits cannot be used interchangeably. [facility] [address] [place] [address] Drew Nj III, M.D. [id number] Performed By: #### 2 92982 #### [facility],[address] [place] [address] 60504 PROTEIN ELECTROPHORESIS UR W / EVE [CCL]on 08-26-2024 PROTEIN ELECTROPHORESIS UR W/ EVE [CCL] Normal [facility] Comment on above: Result Comment: _PRO T ELEC, URINE W/ EVE [CCL]_ SEE SCANNED REPORT Performed By: #### 2 86787 #### [facility],[address] [place] [address] 14534 PTH, INTACT [CCL]on 08-23-19 25 PTH, Intact 40 pg/mL Normal 15-65 [facility] Comment on above: Result Comment: [facility] [address] [place] [address] Drew Nj III, M.D. [id number] Performed By: #### 2 34770 #### [address] [address] CBC + DIFFon 08-22-2024 Baso # 0.02 x10EE3/UL Normal 0.00 - 0.10 [facility] Comment on above: Performed By: #### 2 02451 #### [facility],[address] [place] [address] 01401 Basophils/100 WBC (Bld) 0.3 % Normal 0.0 - 2.0 [facility] Comment on above: Performed By: #### 2 65689 #### [facility],[address] [place] [address] 79533 CBC + DIFF Normal [facility] Comment on above: Result Comment: CBC- COMPLETE BLOOD COUNT Performed By: #### 2 68944 #### [facility],[address] [place] [address] 09677 EO # 0.20 x10EE3/UL Normal 0.00 - 0.50 [facility] Comment on above: Performed By: #### 2 23729 #### [facility],[address] [place] [address] 40386 Eosinophils/100 WBC (Bld) 2.6 % Normal 0.0 - 7.0 [facility] Comment on above: Performed By: #### 2 43177 #### [facility],[address] [place] [address] Erythrocyte distribution width (RBC) [Ratio] 13.3 % Normal 12.0 - 15.6 [facility] Comment on above: Performed By: #### 2 76349 #### [facility],[address] [place] [address] Hematocrit (Bld) [Volume fraction] 35.8 % Normal 34.0 - 46.0 [facility] Comment on above: Performed By: #### 2 77712 #### [facility],[address] [place] [address] Hemoglobin (Bld) [Mass/Vol] 12.1 g/dL Normal 12.0 - 16.0 [facility] Comment on above: Performed By: #### 2 48791 #### [facility],[address] [place] [address] 25355 Lymph # 1.31 x10EE3/UL Normal 0.80 - 2.80 [facility] Comment on above: Performed By: #### 2 81046 #### [facility],[address] [place], [place] [address] Lymphocytes/100 WBC (Bld) 17.2 % Low 20.0 - 45.0 [facility] Comment on above: Performed By: #### 2 39016 #### [facility],[address] [place], [place] [address] MANUAL DIFF N/A Normal [facility] Comment on above: Performed By: #### 2 33256 #### [facility],[address] [place], [place] [address] MCH (RBC) [Entitic mass] 31 pg Normal 27 - 33 [facility] Comment on above: Performed By: #### 2 68202 #### [facility],[address] [place] [address] MCHC 34 X10 3 Normal 32 - 36 [facility] Comment on above: Performed By: #### 2 46013 #### [facility],[address] [place] [address] 51613 MCV (RBC) [Entitic vol] 91 fL Normal 80 - 99 [facility] Comment on above: Performed By: #### 2 35885 #### [facility],[address] [place] [address] Woods # 0.61 x10EE3/UL Normal 0.20 - 1.00 [facility] Comment on above: Performed By: #### 2 32692 #### [facility],[address] [place] [address] 06306 MONOS % 8.0 % Normal 0.0 - 10.0 [facility] Comment on above: Performed By: #### 2 75208 #### [facility],[address] [place] [address] 82411 Morphology Hardy (Bld) [Interp] N/A Normal [facility] Comment on above: Performed By: #### 2 58979 #### [facility],[address] [place] [address] 23742 Neut # 5.47 x10EE3/UL Normal 1.50 - 7.10 [facility] Comment on above: Performed By: #### 2 16389 #### [facility],[address] [place] [address] 07956 Neutrophils/100 WBC (Bld) 71.9 % Normal 46.0 - 76.0 [facility] Comment on above: Performed By: #### 2 38488 #### [facility],[address] [place] [address] 69191 PLATELET 247 x10EE3/UL Normal 150 - 450 [facility] Comment on above: Performed By: #### 2 61601 #### [facility],[address] [place] [address] 39036 Platelet mean volume (Bld) [Entitic vol] 8.7 fL Normal 6.6 - 10.5 [facility] Comment on above: Result Comment: AUTO MATED DIFFERENTIAL Performed By: #### 2 12769 #### [facility],[address] [place] [address] RBC 3.94 x 10EE6/UL Low 4.10 - 5.30 [facility] Comment on above: Performed By: #### 2 46812 #### [facility],[address] [place], [place] [address] WBC 7.6 x 10EE3/UL Normal 4.5 - 10.8 [facility] Comment on above: Performed By: #### 2 68189 #### [facility],[address] [place] [address] CMP with eGFRon 08-22-2024 AGE 78 years Normal [facility] Comment on above: Performed By: #### 2 72505 #### [facility],[address] [place], [place] [address] Albumin [Mass/Vol] 3.5 g/dL Normal 3.4 - 5.0 [facility] Comment on above: Performed By: #### 2 51098 #### [facility],[address] [place], [place] [address] Albumin/Globulin [Mass ratio] 1.0 {ratio} Normal 0.9 - 1.6 [facility] Comment on above: Performed By: #### 2 26885 #### [facility],[address] [place] [address] ALK PHOS 109 U/L Normal 46 - 116 [facility] Comment on above: Performed By: #### 2 12207 #### [facility],[address] [place] [address] 48090 ALT [Catalytic activity/Vol] 19 U/L Normal 16 - 63 [facility] Comment on above: Performed By: #### 2 18695 #### [facility],[address] [place] [address] 26860 Anion gap [Moles/Vol] 14 mmol/L Normal 10 - 20 [facility] Comment on above: Performed By: #### 2 88146 #### [facility],[address] [place] [address] 12353 AST [Catalytic activity/Vol] 21 U/L Normal 13 - 39 [facility] Comment on above: Performed By: #### 2 97926 #### [facility],[address] [place] [address] 01204 B/C RATIO 22 ratio Normal 0 - 30 [facility] Comment on above: Performed By: #### 2 67504 #### [facility],[address] [place] [address] 03441 Bilirubin [Mass/Vol] 2.5 mg/dL High 0.2 - 1.0 [facility] Comment on above: Performed By: #### 2 27512 #### [facility],[address] [place] [address] 59828 Calcium [Mass/Vol] 9.3 mg/dL Normal 8.5 - 10.1 [facility] Comment on above: Performed By: #### 2 87572 #### [facility],[address] [place] [address] 52406 Chloride [Moles/Vol] 101 mmol/L Normal 98 - 107 [facility] Comment on above: Performed By: #### 2 58422 #### [facility],[address] [place] [address] 77323 CMP with eGFR Normal [facility] Comment on above: Result Comment: COMP REHENSIVE METABOLIC PANEL Performed By: #### 2 80843 #### [place] [address] CO2 [Moles/Vol] 24.7 mmol/L Normal 21.0 - 32.0 [facility] Comment on above: Performed By: #### 2 77312 #### [facility],[address] [place] [address] Creatinine [Mass/Vol] 1.11 mg/dL High 0.55 - 1.02 [facility] Comment on above: Performed By: #### 2 96242 #### [facility],[address] [place] [address] eGFR 48 ML/MINUTE Low 60 - 999 [facility] Comment on above: Performed By: #### 2 99362 #### [place] [address] eGFR(AA) 58 ML/MINUTE Low 60 - 999 [facility] Comment on above: Result Comment: ACCO RDING TO THE NATIONAL KIDNEY DISEASE EDUCATION PROGRAM(NKDE), A NORMAL eGFR IS A VALUE GREATER THAN OR EQUAL TO 60 ML/MIN/1.73 SQ METERS. CHRONIC KIDNEY DISEASE: <60mL/MIN/1.73 SQ METERS KIDNEY FAILURE: <15mL/MIN/1.73 SQ METERS THIS TEST SHOULD ONLY BE USED FOR PATIENTS 18 YEARS OF AGE AND OLDER. Performed By: #### 2 13795 #### [facility],[address] [place] [address] Globulin (S) [Mass/Vol] 3.4 g/dL Normal 1.5 - 3.8 [facility] Comment on above: Performed By: #### 2 12522 #### [facility],[address] [place] [address] Glucose [Mass/Vol] 179 mg/dL High 74 - 106 [facility] Comment on above: Performed By: #### 2 46539 #### [place] [address] Potassium [Moles/Vol] 3.9 mmol/L Normal 3.5 - 5.1 [facility] Comment on above: Performed By: #### 2 01418 #### [facility],[address] [place] [address] 38911 Protein [Mass/Vol] 6.9 g/dL Normal 6.4 - 8.2 [facility] Comment on above: Performed By: #### 2 57992 #### [facility],[address] [place] [address] 39562 Sodium [Moles/Vol] 136 mmol/L Normal 136 - 145 [facility] Comment on above: Performed By: #### 2 04441 #### [facility],[address] [place] [address] Urea nitrogen [Mass/Vol] 24 mg/dL High 7 - 18 [facility] Comment on above: Performed By: #### 2 83900 #### [facility],[address] [place], [place] [address] HEMOGLOBIN A1C (POM)on 08-22 Glucose [Mass/Vol] 137.0 mg/dL High 0.0 - 0.0 [facility] Comment on above: Result Comment: BLDo HEMOGLOBIN A1C REFERENCE RANGESBLDo Suggested Diagnosis HbA1c(%) HbA1C (mmol/mol Diabetic >/=6.5 >/=48 Prediabetes 5.7 - 6.4 39 - 47 Normal <5.7 <39 Performed By: #### 2 79228 #### [facility],[address] [place] [address] 25984 HbA1c (Bld) [Mass fraction] 6.4 % Normal 0.0 - 6.5 [facility] Comment on above: Performed By: #### 2 74621 #### [facility],[address] [place] [address] 66886 IMMUNOFIXATION SCREEN, SERUM on 08-22-2024 MPA RESULT No M protein is identified. Normal No M protein is identified. [facility] Comment on above: Order Comment: Speci men Type: BLOOD SPECIMEN Ordering Facility: [facility] Address: [address] [place] [address] Performed By: #### I FESC #### [facility] CLIA [id number] [address] [place] [address] OF [facility] STAFF REVIEW (MPA) Reviewed by Minerva hernandez M.D. Normal [facility] Comment on above: Order Comment: Speci men Type: BLOOD SPECIMEN Ordering Facility: [facility] Address: [address] [place] [address] Performed By: #### I FESC #### [facility] CLIA [id number] [address] [place] [address] IRON AND TIBCon 08-22-2024 %SATURATION 15 % Normal [facility] Comment on above: Performed By: #### 2 53874 #### [facility],[address] [place] [address] 67984 Iron [Mass/Vol] 58 ug/dL Normal 50 - 170 [facility] Comment on above: Performed By: #### 2 76080 #### [facility],[address] [place] [address] 69051 TIBC 377 ug/dl Normal 250 - 450 [facility] Comment on above: Performed By: #### 2 83247 #### [facility],[address] [place] [address] 34667 UIBC 319 ug/dL Normal 155 - 355 [facility] Comment on above: Performed By: #### 2 31172 #### [facility],[address] [place] [address] 71955 LIPID PROFILEon 08-22-2024 Cholesterol [Mass/Vol] 107 mg/dL Normal 0 - 240 [facility] Comment on above: Performed By: #### 2 13162 #### [facility],[address] [place] [address] 14329 Cholesterol in HDL [Mass/Vol] 49 mg/dL Normal 40 - 60 [facility] Comment on above: Performed By: #### 2 46046 #### [facility],[address] [place] [address] 00310 Cholesterol in LDL [Mass/Vol] 25 mg/dL Normal 0 - 129 [facility] Comment on above: Performed By: #### 2 89185 #### [facility],[address] [place] [address] 39762 Cholesterol.total/Ch olesterol in HDL [Mass ratio] 2.2 {ratio} Normal 0.0 - 5.0 [facility] Comment on above: Performed By: #### 2 90036 #### [facility],[address] [place] [address] 54394 Lipid 1996 panel Normal [facility] Comment on above: Result Comment: LIPI D PROFILE Performed By: #### 2 50730 #### [facility],[address] [place] [address] 28795 Triglyceride [Mass/Vol] 164 mg/dL High 0 - 150 [facility] Comment on above: Performed By: #### 2 12573 #### [facility],[address] [place] [address] 25940 MAGNESIUMon 08-22-2024 Magnesium [Mass/Vol] 1.9 mg/dL Normal 1.8 - 2.4 [facility] Comment on above: Performed By: #### 2 38754 #### [facility],[address] [place] [address] 65570 PROTEIN ELECTROPHORESIS SERU M (P)on 08-22-2024 Albumin [Mass/Vol] 3.82 g/dL Normal 3.43-5.41 [facility] Comment on above: Order Comment: Speci men Type: BLOOD SPECIMEN Ordering Facility: [facility] Address: [address] [place] [address] Performed By: #### L [id number] #### [facility] CLIA [id number] [address] [place] [address] [place] Alpha 1 globulin Elph [Mass/Vol] 0.22 g/dL Normal 0.18-0.43 [facility] Comment on above: Order Comment: Speci men Type: BLOOD SPECIMEN Ordering Facility: [facility] Address: [address] [place] [address] Performed By: #### L [id number] #### [facility] CLIA [id number] [address] [place] [address] [place] Alpha 2 globulin Elph [Mass/Vol] 0.82 g/dL Normal 0.42-0.98 [facility] Comment on above: Order Comment: Speci men Type: BLOOD SPECIMEN Ordering Facility: [facility] Address: [address] [place] [address] Performed By: #### L [id number] #### [facility] CLIA [id number] [address] [place] [address] [place] Beta globulin Elph [Mass/Vol] 0.91 g/dL Normal 0.61-1.17 [facility] Comment on above: Order Comment: Speci men Type: BLOOD SPECIMEN Ordering Facility: [facility] Address: [address] [place] [address] Performed By: #### L [id number] #### [facility] CLIA [id number] [address] [place] [address] [place] Gamma globulin Elph [Mass/Vol] 0.72 g/dL Normal 0.53-1.51 [facility] Comment on above: Order Comment: Speci men Type: BLOOD SPECIMEN Ordering Facility: [facility] Address: [address] [place] [address] Performed By: #### L [id number] #### [facility] CLIA [id number] [address] [place] [id number] [place] M-PROTEIN LOCATION [facility] Comment on above: Order Comment: Speci men Type: BLOOD SPECIMEN Ordering Facility: [facility] Address: [address] [place] [address] Result Comment: Not Applicable. Performed By: #### L [id number] #### [facility] CLIA [id number] [address] [place] [address] [place] Protein Fractions [Interp] No definitive M protein is identified on protein electrophoresis. Normal No definitive M protein is identified on protein electrophore sis. [facility] Comment on above: Order Comment: Speci men Type: BLOOD SPECIMEN Ordering Facility: [facility] Address: [address] [place] [address] Performed By: #### L [id number] #### [facility] CLIA [id number] [address] [place] [address] [place] Protein.monoclonal Elph [Mass/Vol] 0.00 g/dL Normal <=0.00 [facility] Comment on above: Order Comment: Speci men Type: BLOOD SPECIMEN Ordering Facility: [facility] Address: [address] [place] [address] Performed By: #### L [id number] #### [facility] CLIA [id number] [address] [place] [address] [place] SPE STAFF REVIEW Reviewed by Minerva hernandez M.D. Normal [facility] Comment on above: Order Comment: Speci men Type: BLOOD SPECIMEN Ordering Facility: [facility] Address: [address] [place] [address] Performed By: #### L [id number] #### [facility] CLIA [id number] [address] [place] [address] [place] PTH-Intact [facility] Parathyrin.intact [Mass/Vol] 40 pg/mL Normal 15-65 [facility] Comment on above: Order Comment: Speci men Type: BLOOD SPECIMEN Ordering Facility: [facility] Address: [address] [place] [address] Performed By: #### 2 731-8 #### [facility] CLIA [id number] [address] [address] [place] Prot SerPl-mCncon 08-22-2024 Protein [Mass/Vol] 6.5 g/dL Normal 6.3-8.0 [facility] Comment on above: Order Comment: Speci men Type: BLOOD SPECIMEN Ordering Facility: [facility] Address: [address] [place] [address] Performed By: #### 2 885-2 #### [facility] CLIA [id number] [address] [place] [address] [place] Prot Ur-mCncon 08-22-2024 Protein (U) [Mass/Vol] 6 mg/dL Normal 0-20 [facility] Comment on above: Order Comment: Speci men Type: URINE SPECIMEN Ordering Facility: [facility] Address: [address] [place] [address] Performed By: #### 2 888-6 #### [facility] CLIA [id number] [address] [place] [address] [place] TSHon 08-22-2024 TSH Qn 2.73 m[IU]/L Normal 0.35 - 3.74 [facility] Comment on above: Performed By: #### 2 56198 #### [facility],[address] [place] [address] URIC ACIDon 08-22-2024 Urate [Mass/Vol] 4.3 mg/dL Normal 2.6 - 6.0 [facility] Comment on above: Performed By: #### 2 [id number] #### [facility],[address] [place] [address]26 URINE CREATININE AND PROTEIN RATIOon 08-22-2024 CREATININE UR 63.18 mg/dl Normal [facility] Comment on above: Performed By: #### 2 [id number] #### [facility],[address] [place] [address] 74882 PC RATIO 0.12 mg/dL Normal 0.00 - 10.00 [facility] Comment on above: Performed By: #### 2 [id number] #### [facility],[address] [place] [address] 29695 Protein (U) [Mass/Vol] 7.50 mg/dL Normal 0.00 - 10.00 [facility] Comment on above: Performed By: #### 2 [id number] #### [facility],[address] [place] [address] URINE MICROALBUMIN W/CREATIN INE, RANDOMon 08-22-2024 CREATININE UR 63.18 mg/dl Normal [facility] Comment on above: Performed By: #### 2 54511 #### [facility],[address] [place] [address] 07004 MICROALBUMIN UR 0.2 mg/dL Normal 0.1 - 11.6 [facility] Comment on above: Performed By: #### 2 [id number] #### [facility],[address] [place] [address] 53606 UACR 3 mg/g Normal [facility] Comment on above: Performed By: #### 2 75292 #### [facility],[address] [place] [address] 09065 URINE PROTEIN ELECTROPHORESI S WITH EVE (P)on 08-22-2024 Albumin Elph (U) [Mass fraction] 38.48 % Normal [facility] Comment on above: Order Comment: Speci men Type: URINE SPECIMEN Ordering Facility: [facility] Address: [address] [place] [address] Performed By: #### L [id number] #### [facility] CLIA [id number] [address] [place] [address] [place] Alpha 1 globulin Elph (U) [Mass fraction] 6.24 % Normal [facility] Comment on above: Order Comment: Speci men Type: URINE SPECIMEN Ordering Facility: [facility] Address: [address] [place] [address] Performed By: #### L [id number] #### [facility] CLIA [id number] [address] [place] [address] [place] Alpha 2 globulin Elph (U) [Mass fraction] 14.61 % Normal [facility] Comment on above: Order Comment: Speci men Type: URINE SPECIMEN Ordering Facility: [facility] Address: [address] [place] [address] Performed By: #### L [id number] #### [facility] CLIA [id number] [address] [place] [address] [place] Beta globulin Elph (U) [Mass fraction] 26.24 % Normal [facility] Comment on above: Order Comment: Speci men Type: URINE SPECIMEN Ordering Facility: [facility] Address: [address] [place] [address] Performed By: #### L [id number] #### [facility] CLIA [id number] [address] [place] [address] [place] COMMENT (URINE PROT ELECTRO) Monoclonal Protein analysis (immunofixation) is not indicated. Normal [facility] Comment on above: Order Comment: Speci men Type: URINE SPECIMEN Ordering Facility: [facility] Address: [address] [place] [address] Performed By: #### L [id number] #### [facility] CLIA [id number] [address] [place] [address] [place] Gamma globulin Elph (U) [Mass fraction] 14.42 % Normal [facility] Comment on above: Order Comment: Speci men Type: URINE SPECIMEN Ordering Facility: [facility] Address: [address] [place] [address] Performed By: #### L [id number] #### [facility] CLIA [id number] [address] [place] [address] [place] Protein Fractions Elph Hardy (U) [Interp] No definitive M protein is identified on protein electrophoresis. Normal No definitive M protein is identified on protein electrophore sis. [facility] Comment on above: Order Comment: Speci men Type: URINE SPECIMEN Ordering Facility: [facility] Address: [address] [id number] Performed By: #### L [id number] #### [facility] CLIA [id number] [address] [place] [place] [id number] [place] STAFF REVIEW (URINE ELECTRO) Reviewed by Minerva Anderson M.D. Normal [facility] Comment on above: Order Comment: Speci men Type: URINE SPECIMEN Ordering Facility: [facility] Address: [address] [place] [address] Performed By: #### L [id number] #### [facility] CLIA [id number] [address] [place] VITAMIN D, 25 HYDROXYon VitD 47.50 ng/mL Normal 30.00 - 100 [facility] Comment on above: Result Comment: 25-O HD3 [...] D2 Not Established Performed By: #### 2 [id number] #### [facility],[address] [place], [place] [id number] BONE DENSITY STUDYon 024 Bone density scan [place] [address] Patient: CARMEN HARVEY Phone#: : 1945 Age: 78 Gender: F Pt. Type: Out Account: [id number] Location: 2 Ordering: ANN MARIE CASTANO Exam Date: 06/13/2024/11:06 Family Phys: Charge Code: 020720 Physician: Jewell Order #: [id number] Dose#: PROCEDURE: BONE DENSITY STUDY TECHNIQUE: Lumbar vertebral and proximal femoral dual-energy X-ray absorptiometry (DXA) was performed on a central Gorb device. COMPARISON: [facility], BONE DENSITY STUDY, 01/25/2022, 11:21. SPINE ANALYSIS [...] Gender: F MRN: Pt. Type: Out Account: [id number] Location: 052 Ordering: ANN MARIE CASTANO Exam Date: 06/13/2024/11:06 Family Phys: Charge Code: 481045 Physician: Jewell Order #: [id number] Dose#: ADDITIONAL FINDINGS: FRAX: 10 year probability of fracture Major osteoporotic fracture: 24.6% Hip fracture: 5.2% Dictated by: Kathy Wakefield MD on 06/13/2024 at 12:35 Approved by: Kathy Wakefield MD on 06/13/2024 at 12:39 Normal [facility] KIDNEY / BLADDER 2023 KIDNEY / BLADDER [place] [address] Patient: CARMEN HARVEY Phone#: : 1945 Age: 78 Gender: F MRN: Pt. Type: Out Account: [id number] Location: 2 Ordering: DR. RALEIGH JHAVERI Exam Date: 06/13/2024/10:09 Family Phys: ANN MARIE LATBRIDGETTE Charge Code: 186935 Physician: Jewell Order #: [id number] Dose#: PROCEDURE: KIDNEY/BLADDER ULTRASOUND COMPARISON: [facility], CT, ABDOMEN/PELVIS W CON, 12/25/2020, 15:18. [...] Wakefield MD on 06/13/2024 at 11:05 Normal [facility] Glucose Glucometer (BldC) [M ass/Vol]Ordered By: Carlos Maravilla on 06-23-2023 Glucose [Mass/Vol] 186 mg/dL 74-106 [facility] Comment on above: MANAGEMENT OF PATIEN T CARE PER NURSING PROTOCOL Laboratory - CoagulationOrde red By: Carlos Maravilla on 06-23-2023 INR Coag (Bld) [Relative time] 1.1 {INR} [facility] Comment on above: Critical Value > 4.0 Whole blood prothrombin time Ordered By: Carlos Maravilla on 06-23-2023 PT Coag (Bld) [Time] 12.2 s 11.7-14.9 [facility] TYRONE SCREENING W TOMOon 03-02 [facility] 25-Hydroxy D2+D3on 1 25-Hydroxy D Total 29.3 ng/mL Low 30.0-100.0 [facility] Comment on above: Performed By: #### H BA1C, D2D3 #### [facility] Laboratories Chemistry [address] [place], [place] [address] 25-Hydroxy D2 <4.0 Normal [facility] Comment on above: Performed By: #### H BA1C, D2D3 #### [facility] Chemistry [address] [place], [place] [address] 25-Hydroxy D3 29.3 ng/mL Normal [facility] Comment on above: Performed By: #### H BA1C, D2D3 #### [facility] Chemistry [address] [place], [place] [address] Hemoglobin A1con 05-11-2021 Glucose [Mass/Vol] 120 mg/dL Normal [facility] Comment on above: Performed By: #### Trupti MATTHEWSD3 #### [facility] Chemistry [address] [place], [place] [address] HbA1c (Bld) [Mass fraction] 5.8 % High 4.3-5.6 [facility] Comment on above: Performed By: #### Trupti MATTHEWSD3 #### [facility] Chemistry [address] [place] [address] Hemoglobin A1con 12-05-2020 Glucose [Mass/Vol] 134 mg/dL Normal [facility] Comment on above: Performed By: #### H BAStephen #### [facility] Routine Lab [address] [place], [place] [address] HbA1c (Bld) [Mass fraction] 6.3 % High 4.3-5.6 [facility] Comment on above: Performed By: #### H BA1C #### [facility] Routine Lab [address] [place], [place] [address] Hemoglobin A1con 09-09-2020 Glucose [Mass/Vol] 123 mg/dL Normal [facility] Comment on above: Performed By: #### H BA1C #### [facility] Routine Lab [address] [place], [place] [address] HbA1c (Bld) [Mass fraction] 5.9 % High 4.3-5.6 [facility] Comment on above: Performed By: #### H BA1C #### [facility] Routine Lab [address] [place] [id number] CBLon 06-08-2020 CBL . MICRO - Microbiology [...] Locations *1: This test was performed at: [address], [address] [place] [address] ([place]) Comment on above: Performed By: #### C BC, ADIFF, ANEU, BMP, MG, GFR, TROPHS #### [place] [address] .Auto Diffon 06-05-2020 Ammonia (P) [Mass/Vol] 1.50 10 3/mcL High 0.09-1.40 [facility] ([place]) Comment on above: Performed By: #### C BC, ADIFF, ANEU, BMP, MG, GFR, TROPHS #### [address] [address] Basophils (Bld) [#/Vol] 0.10 10 3/mcL Normal 0.00-0.27 [facility] ([place]) Comment on above: Performed By: #### C BC, ADIFF, ANEU, BMP, MG, GFR, TROPHS #### [address] [address] Basophils/100 WBC (Bld) 0.5 % Normal 0.0-2.5 [facility] ([place] Comment on above: Performed By: #### C BC, ADIFF, ANEU, BMP, MG, GFR, TROPHS #### [address] [address] Eosinophils (Bld) [#/Vol] 0.10 10 3/mcL Normal 0.00-0.65 [facility] ([place] Comment on above: Performed By: #### C BC, ADIFF, ANEU, BMP, MG, GFR, TROPHS #### [address] [address] Eosinophils/100 WBC (Bld) 0.5 % Normal 0.0-6.0 [facility] ([place]) Comment on above: Performed By: #### C BC, ADIFF, ANEU, BMP, MG, GFR, TROPHS #### [address] [address] Lymphocytes (Bld) [#/Vol] 1.90 10 3/mcL Normal 0.90-4.32 [facility] ([place]) Comment on above: Performed By: #### C BC, ADIFF, ANEU, BMP, MG, GFR, TROPHS #### [address] [address] Lymphocytes/100 WBC (Bld) 14.4 % Low 20.0-40.0 [facility] ([place]) Comment on above: Performed By: #### C BC, ADIFF, ANEU, BMP, MG, GFR, TROPHS #### [address] [address] Monocytes/100 WBC (Bld) 11.5 % Normal 2.0-13.0 [facility] ([place]) Comment on above: Performed By: #### C BC, ADIFF, ANEU, BMP, MG, GFR, TROPHS #### [address] [address] Neutrophils/100 WBC (Bld) 73.1 % Normal 50.0-75.0 [facility] ([place]) Comment on above: Performed By: #### C BC, ADIFF, ANEU, BMP, MG, GFR, TROPHS #### [address] [address] .GFRon 06-05-2020 GFR Non- 56 ml/min/1.73sqm Normal [facility] ([place]) Comment on above: Result Comment: GFR [...] ADIFF, ANEU, BMP, MG, GFR, TROPHS #### [address] [address] GFR >60 Normal [facility] ([place]) Comment on above: Result Comment: GFR Population [...] ADIFF, ANEU, BMP, MG, GFR, TROPHS #### [address] [address] .NEUABSon 06-05-2020 Neutrophils (Bld) [#/Vol] 9.80 10 3/mcL High 2.25-8.10 [facility] ([place] Comment on above: Performed By: #### C BC, ADIFF, ANEU, BMP, MG, GFR, TROPHS #### [address] [address] BMPon 06-05-2020 Calcium [Mass/Vol] 8.4 mg/dL Normal 8.4-10.1 [facility] ([place]) Comment on above: Result Comment: No te - New Reference Range in effect 20 Performed By: #### C BC, ADIFF, ANEU, BMP, MG, GFR, TROPHS #### [address] [address] Chloride [Moles/Vol] 108 mmol/L Normal 98-110 [facility] ([place]) Comment on above: Performed By: #### C BC, ADIFF, ANEU, BMP, MG, GFR, TROPHS #### [address] [address] CO2 [Moles/Vol] 29 mmol/L Normal 22-32 [facility] ([place] Comment on above: Performed By: #### C BC, ADIFF, ANEU, BMP, MG, GFR, TROPHS #### [address] [address] Creatinine [Mass/Vol] 0.98 mg/dL Normal 0.50-1.20 [facility] ([place] Comment on above: Performed By: #### C BC, ADIFF, ANEU, BMP, MG, GFR, TROPHS #### [address] [address] Electrolyte Balance 3.0 mEq/L Low 4.0-15.0 [facility] ([place]) Comment on above: Performed By: #### C BC, ADIFF, ANEU, BMP, MG, GFR, TROPHS #### [address] [address] Glucose [Mass/Vol] 141 mg/dL High 82-115 [facility] ([place]) Comment on above: Performed By: #### C BC, ADIFF, ANEU, BMP, MG, GFR, TROPHS #### [address] [address] Potassium [Moles/Vol] 3.5 mmol/L Normal 3.5-5.0 [facility] ([place] Comment on above: Performed By: #### C BC, ADIFF, ANEU, BMP, MG, GFR, TROPHS #### [address] [address] Sodium [Moles/Vol] 140 mmol/L Normal 136-145 [facility] ([place]) Comment on above: Performed By: #### C BC, ADIFF, ANEU, BMP, MG, GFR, TROPHS #### [address] [address] Urea nitrogen [Mass/Vol] 23.0 mg/dL High 8.0-22.0 [facility] ([place] Comment on above: Performed By: #### C BC, ADIFF, ANEU, BMP, MG, GFR, TROPHS #### [place] [address] Urea nitrogen/Creatinine [Mass ratio] 23.5 ratio High 10.0-22.0 [facility] ([place] Comment on above: Performed By: #### C BC, ADIFF, ANEU, BMP, MG, GFR, TROPHS #### [place] [id number] CBCon 06-05-2020 Erythrocyte distribution width (RBC) [Ratio] 14.4 % Normal 11.5-15.5 [facility] ([place] Comment on above: Performed By: #### C BC, ADIFF, ANEU, BMP, MG, GFR, TROPHS #### [place] [id number] Hematocrit (Bld) [Volume fraction] 33.9 % Low 34.0-46.0 [facility] ([place] Comment on above: Performed By: #### C BC, ADIFF, ANEU, BMP, MG, GFR, TROPHS #### [place] [id number] Hemoglobin (Bld) [Mass/Vol] 12.1 G/dL Normal 12.0-16.0 [facility] ([place] Comment on above: Performed By: #### C BC, ADIFF, ANEU, BMP, MG, GFR, TROPHS #### [place] [id number] MCH (RBC) [Entitic mass] 32.8 pg Normal 27.0-33.0 [facility] ([place] Comment on above: Performed By: #### C BC, ADIFF, ANEU, BMP, MG, GFR, TROPHS #### [place] [phone] MCHC (RBC) [Mass/Vol] 35.6 G/dL Normal 32.0-36.0 [facility] ([place] Comment on above: Performed By: #### C BC, ADIFF, ANEU, BMP, MG, GFR, TROPHS #### [place] [id number] MCV (RBC) [Entitic vol] 92.1 fL Normal 80.0-99.0 [facility] ([place] Comment on above: Performed By: #### C BC, ADIFF, ANEU, BMP, MG, GFR, TROPHS #### [place] [address] Platelet mean volume (Bld) [Entitic vol] 8.3 fL Normal 6.6-10.5 [facility] ([place] Comment on above: Performed By: #### C BC, ADIFF, ANEU, BMP, MG, GFR, TROPHS #### [place] [id number] Platelets (Bld) [#/Vol] 161 10 3/mcL Normal 150-450 [facility] ([place] Comment on above: Performed By: #### C BC, ADIFF, ANEU, BMP, MG, GFR, TROPHS #### [place] [address] RBC (Bld) [#/Vol] 3.68 10 6/mcL Low 4.10-5.30 [facility] ([place] Comment on above: Performed By: #### C BC, ADIFF, ANEU, BMP, MG, GFR, TROPHS #### [place] [id number] WBC (Bld) [#/Vol] 13.40 10 3/mcL High 4.50-10.80 [facility] ([place] Comment on above: Performed By: #### C BC, ADIFF, ANEU, BMP, MG, GFR, TROPHS #### [place] [id number] CURon 06-05-2020 CUR . MICRO - Microbiology [...] Locations *1: This test was performed at: [facility], [address] [place] [address], [address] [place] [address] ([place]) Comment on above: Performed By: #### C BC, ADIFF, ANEU, BMP, MG, GFR, TROPHS #### [place] [address] PROon 06-05-2020 INR Coag (PPP) [Relative time] 1.5 {INR} Normal [facility] ([place]) Comment on above: Order Comment: order ed secondary to warfarin order Result Comment: The [employer] (CHEST, 1992, 102:312S-25S) recommended therapeutic range for oral anticoagulant therapy is: LOW RISK: Prophylaxis of venous thrombosis INR: 2.0-3.0 Treatment of pulmonary embolism 2.0-3.0 Prevention of systemic embolism 2.0-3.0 HIGH RISK: Mechanical prosthetic valves 2.5-3.5 Performed By: #### C BC, ADIFF, ANEU, BMP, MG, GFR, TROPHS #### [place] [address] PT Coag (PPP) [Time] 17.8 s High 9.0-14.6 [facility] ([place]) Comment on above: Order Comment: order ed secondary to warfarin order Result Comment: Effe ctive 03/04/08, Protime results may be affected by some antibiotics (i.e. Ciprofloxacin, Azithromycin, Bactrim) which may potentiate the action of oral anticoagulants, with further increases in Protime/INR. Performed By: #### C BC, ADIFF, ANEU, BMP, MG, GFR, TROPHS #### [place] [id number] .Auto Diffon 06-04-2020 Ammonia (P) [Mass/Vol] 1.60 10 3/mcL High 0.09-1.40 [facility] ([place] Comment on above: Performed By: #### C BC, ADIFF, ANEU, BMP, MG, GFR, TROPHS #### [address] [address] Basophils (Bld) [#/Vol] 0.10 10 3/mcL Normal 0.00-0.27 [facility] ([place] Comment on above: Performed By: #### C BC, ADIFF, ANEU, BMP, MG, GFR, TROPHS #### [address] [address] Basophils/100 WBC (Bld) 0.5 % Normal 0.0-2.5 [facility] ([place] Comment on above: Performed By: #### C BC, ADIFF, ANEU, BMP, MG, GFR, TROPHS #### [address] [address] Eosinophils (Bld) [#/Vol] 0.30 10 3/mcL Normal 0.00-0.65 [facility] ([place] Comment on above: Performed By: #### C BC, ADIFF, ANEU, BMP, MG, GFR, TROPHS #### [address] [address] Eosinophils/100 WBC (Bld) 2.1 % Normal 0.0-6.0 [facility] ([place] Comment on above: Performed By: #### C BC, ADIFF, ANEU, BMP, MG, GFR, TROPHS #### [address] [address] Lymphocytes (Bld) [#/Vol] 2.30 10 3/mcL Normal 0.90-4.32 [facility] ([place] Comment on above: Performed By: #### C BC, ADIFF, ANEU, BMP, MG, GFR, TROPHS #### [address] [address] Lymphocytes/100 WBC (Bld) 19.2 % Low 20.0-40.0 [facility] ([place] Comment on above: Performed By: #### C BC, ADIFF, ANEU, BMP, MG, GFR, TROPHS #### [address] [address] Monocytes/100 WBC (Bld) 13.1 % High 2.0-13.0 [facility] ([place]) Comment on above: Performed By: #### C BC, ADIFF, ANEU, BMP, MG, GFR, TROPHS #### [address] [address] Neutrophils/100 WBC (Bld) 65.1 % Normal 50.0-75.0 [facility] ([place]) Comment on above: Performed By: #### C BC, ADIFF, ANEU, BMP, MG, GFR, TROPHS #### [address] [address] .GFRon 06-04-2020 GFR 58 ml/min/1.73sqm Normal [facility] ([place]) Comment on above: Result Comment: GFR [...] ADIFF, ANEU, BMP, MG, GFR, TROPHS #### [address] [address] GFR Non- 48 ml/min/1.73sqm Normal [facility] ([place]) Comment on above: Result Comment: GFR [...] ADIFF, ANEU, BMP, MG, GFR, TROPHS #### [address] [address] .NEUABSon 06-04-2020 Neutrophils (Bld) [#/Vol] 7.90 10 3/mcL Normal 2.25-8.10 [facility] ([place] Comment on above: Performed By: #### C BC, ADIFF, ANEU, BMP, MG, GFR, TROPHS #### [place] [address] BMPon 06-04-2020 Calcium [Mass/Vol] 9.5 mg/dL Normal 8.4-10.1 [facility] ([place]) Comment on above: Result Comment: No te - New Reference Range in effect 20 Performed By: #### C BC, ADIFF, ANEU, BMP, MG, GFR, TROPHS #### [place] [phone] Chloride [Moles/Vol] 106 mmol/L Normal 98-110 [facility] ([place]) Comment on above: Performed By: #### C BC, ADIFF, ANEU, BMP, MG, GFR, TROPHS #### [address] [address] CO2 [Moles/Vol] 25 mmol/L Normal 22-32 [facility] ([place] Comment on above: Performed By: #### C BC, ADIFF, ANEU, BMP, MG, GFR, TROPHS #### [address] [address] Creatinine [Mass/Vol] 1.11 mg/dL Normal 0.50-1.20 [facility] ([place] Comment on above: Performed By: #### C BC, ADIFF, ANEU, BMP, MG, GFR, TROPHS #### [address] [address] Electrolyte Balance 8.0 mEq/L Normal 4.0-15.0 [facility] ([place]) Comment on above: Performed By: #### C BC, ADIFF, ANEU, BMP, MG, GFR, TROPHS #### [address] [address] Glucose [Mass/Vol] 79 mg/dL Low 82-115 [facility] ([place]) Comment on above: Performed By: #### C BC, ADIFF, ANEU, BMP, MG, GFR, TROPHS #### [address] [address] Potassium [Moles/Vol] 3.3 mmol/L Low 3.5-5.0 [facility] ([place] Comment on above: Performed By: #### C BC, ADIFF, ANEU, BMP, MG, GFR, TROPHS #### [address] [address] Sodium [Moles/Vol] 139 mmol/L Normal 136-145 [facility] ([place]) Comment on above: Performed By: #### C BC, ADIFF, ANEU, BMP, MG, GFR, TROPHS #### [address] [address] Urea nitrogen [Mass/Vol] 29.0 mg/dL High 8.0-22.0 [facility] ([place] Comment on above: Performed By: #### C BC, ADIFF, ANEU, BMP, MG, GFR, TROPHS #### [address] [address] Urea nitrogen/Creatinine [Mass ratio] 26.1 ratio High 10.0-22.0 [facility] ([place] Comment on above: Performed By: #### C BC, ADIFF, ANEU, BMP, MG, GFR, TROPHS #### [address] [address] CBCon 06-04-2020 Erythrocyte distribution width (RBC) [Ratio] 14.2 % Normal 11.5-15.5 [facility] ([place] Comment on above: Performed By: #### C BC, ADIFF, ANEU, BMP, MG, GFR, TROPHS #### [place] [address] Hematocrit (Bld) [Volume fraction] 36.3 % Normal 34.0-46.0 [facility] ([place] Comment on above: Performed By: #### C BC, ADIFF, ANEU, BMP, MG, GFR, TROPHS #### [place] [address] Hemoglobin (Bld) [Mass/Vol] 12.8 G/dL Normal 12.0-16.0 [facility] ([place] Comment on above: Performed By: #### C BC, ADIFF, ANEU, BMP, MG, GFR, TROPHS #### [place] [id number] MCH (RBC) [Entitic mass] 32.7 pg Normal 27.0-33.0 [facility] ([place] Comment on above: Performed By: #### C BC, ADIFF, ANEU, BMP, MG, GFR, TROPHS #### [place] [phone] MCHC (RBC) [Mass/Vol] 35.3 G/dL Normal 32.0-36.0 [facility] ([place] Comment on above: Performed By: #### C BC, ADIFF, ANEU, BMP, MG, GFR, TROPHS #### [place] [id number] MCV (RBC) [Entitic vol] 92.5 fL Normal 80.0-99.0 [facility] ([place] Comment on above: Performed By: #### C BC, ADIFF, ANEU, BMP, MG, GFR, TROPHS #### [place] [id number] Platelet mean volume (Bld) [Entitic vol] 8.6 fL Normal 6.6-10.5 [facility] ([place] Comment on above: Performed By: #### C BC, ADIFF, ANEU, BMP, MG, GFR, TROPHS #### [address] [address] Platelets (Bld) [#/Vol] 192 10 3/mcL Normal 150-450 [facility] ([place] Comment on above: Performed By: #### C BC, ADIFF, ANEU, BMP, MG, GFR, TROPHS #### [address] [address] RBC (Bld) [#/Vol] 3.92 10 6/mcL Low 4.10-5.30 [facility] ([place]) Comment on above: Performed By: #### C BC, ADIFF, ANEU, BMP, MG, GFR, TROPHS #### [address] [address] WBC (Bld) [#/Vol] 12.20 10 3/mcL High 4.50-10.80 [facility] ([place] Comment on above: Performed By: #### C BC, ADIFF, ANEU, BMP, MG, GFR, TROPHS #### [address] [address] MGon 06-04-2020 Magnesium [Mass/Vol] 1.9 mg/dL Normal 1.6-2.4 [facility] ([place] Comment on above: Performed By: #### C BC, ADIFF, ANEU, BMP, MG, GFR, TROPHS #### [address] [address] PROon 06-04-2020 INR Coag (PPP) [Relative time] 1.4 {INR} Normal [facility] ([place] Comment on above: Order Comment: order ed secondary to warfarin order Result Comment: The [employer] (CHEST, 1992, 102:312S-25S) recommended therapeutic range for oral anticoagulant therapy is: LOW RISK: Prophylaxis of venous thrombosis INR: 2.0-3.0 Treatment of pulmonary embolism 2.0-3.0 Prevention of systemic embolism 2.0-3.0 HIGH RISK: Mechanical prosthetic valves 2.5-3.5 Performed By: #### C BC, ADIFF, ANEU, BMP, MG, GFR, TROPHS #### [place] [id number] PT Coag (PPP) [Time] 16.6 s High 9.0-14.6 [facility] ([place]) Comment on above: Order Comment: order ed secondary to warfarin order Result Comment: Effe ctive 03/04/08, Protime results may be affected by some antibiotics (i.e. Ciprofloxacin, Azithromycin, Bactrim) which may potentiate the action of oral anticoagulants, with further increases in Protime/INR. Performed By: #### C BC, ADIFF, ANEU, BMP, MG, GFR, TROPHS #### [place] [address] TABOon 06-04-2020 ABO/Rh Interp Positive [facility] ([place]) Comment on above: Performed By: #### C BC, ADIFF, ANEU, BMP, MG, GFR, TROPHS #### [place] [address] TABSon 06-04-2020 Antibody Screen Tango Negative [facility]) Comment on above: Performed By: #### C BC, ADIFF, ANEU, BMP, MG, GFR, TROPHS #### [place] [address] .Auto Diffon 06-03-2020 Ammonia (P) [Mass/Vol] 1.00 10 3/mcL Normal 0.09-1.40 [facility] ([place] Comment on above: Performed By: #### C BC, ADIFF, ANEU, BMP, MG, GFR, TROPHS #### [place] [address] Basophils (Bld) [#/Vol] 0.10 10 3/mcL Normal 0.00-0.27 [facility] ([place] Comment on above: Performed By: #### C BC, ADIFF, ANEU, BMP, MG, GFR, TROPHS #### [place] [address] Basophils/100 WBC (Bld) 0.6 % Normal 0.0-2.5 [facility] ([place] Comment on above: Performed By: #### C BC, ADIFF, ANEU, BMP, MG, GFR, TROPHS #### [facility] [address] [place], [place] [address] Eosinophils (Bld) [#/Vol] 0.10 10 3/mcL Normal 0.00-0.65 [facility] ([place]) Comment on above: Performed By: #### C BC, ADIFF, ANEU, BMP, MG, GFR, TROPHS #### [address] [address] Eosinophils/100 WBC (Bld) 0.9 % Normal 0.0-6.0 [facility] ([place]) Comment on above: Performed By: #### C BC, ADIFF, ANEU, BMP, MG, GFR, TROPHS #### [address] [address] Lymphocytes (Bld) [#/Vol] 2.40 10 3/mcL Normal 0.90-4.32 [facility] ([place]) Comment on above: Performed By: #### C BC, ADIFF, ANEU, BMP, MG, GFR, TROPHS #### [address] [address] Lymphocytes/100 WBC (Bld) 15.9 % Low 20.0-40.0 [facility] ([place] Comment on above: Performed By: #### C BC, ADIFF, ANEU, BMP, MG, GFR, TROPHS #### [address] [address] Monocytes/100 WBC (Bld) 6.8 % Normal 2.0-13.0 [facility] ([place] Comment on above: Performed By: #### C BC, ADIFF, ANEU, BMP, MG, GFR, TROPHS #### [address] [address] Neutrophils/100 WBC (Bld) 75.8 % High 50.0-75.0 [facility] ([place] Comment on above: Performed By: #### C BC, ADIFF, ANEU, BMP, MG, GFR, TROPHS #### [address] [address] Ammonia (P) [Mass/Vol] 1.90 10 3/mcL High 0.09-1.40 [facility] ([place] Comment on above: Performed By: #### C BC, ADIFF, ANEU, BMP, MG, GFR, TROPHS #### [address] [address] Basophils (Bld) [#/Vol] 0.10 10 3/mcL Normal 0.00-0.27 [facility] ([place] Comment on above: Performed By: #### C BC, ADIFF, ANEU, BMP, MG, GFR, TROPHS #### [address] [address] Basophils/100 WBC (Bld) 0.3 % Normal 0.0-2.5 [facility] ([place] Comment on above: Performed By: #### C BC, ADIFF, ANEU, BMP, MG, GFR, TROPHS #### [address] [address] Eosinophils (Bld) [#/Vol] 0.10 10 3/mcL Normal 0.00-0.65 [facility] ([place] Comment on above: Performed By: #### C BC, ADIFF, ANEU, BMP, MG, GFR, TROPHS #### [address] [address] Eosinophils/100 WBC (Bld) 0.4 % Normal 0.0-6.0 [facility] [place] Comment on above: Performed By: #### C BC, ADIFF, ANEU, BMP, MG, GFR, TROPHS #### [address] [address] Lymphocytes (Bld) [#/Vol] 1.00 10 3/mcL Normal 0.90-4.32 [facility] ([place] Comment on above: Performed By: #### C BC, ADIFF, ANEU, BMP, MG, GFR, TROPHS #### [address] [address] Lymphocytes/100 WBC (Bld) 4.6 % Low 20.0-40.0 [facility] ([place] Comment on above: Performed By: #### C BC, ADIFF, ANEU, BMP, MG, GFR, TROPHS #### [address] [address] Monocytes/100 WBC (Bld) 9.0 % Normal 2.0-13.0 [facility] ([place] Comment on above: Performed By: #### C BC, ADIFF, ANEU, BMP, MG, GFR, TROPHS #### [address] [address] Neutrophils/100 WBC (Bld) 85.7 % High 50.0-75.0 [facility] ([place] Comment on above: Performed By: #### C BC, ADIFF, ANEU, BMP, MG, GFR, TROPHS #### [address] [address] Ammonia (P) [Mass/Vol] 1.10 10 3/mcL Normal 0.09-1.40 [facility] ([place] Comment on above: Performed By: #### C BC, ADIFF, ANEU, BMP, MG, GFR, TROPHS #### [address] [address] Basophils (Bld) [#/Vol] 0.10 10 3/mcL Normal 0.00-0.27 [facility] ([place] Comment on above: Performed By: #### C BC, ADIFF, ANEU, BMP, MG, GFR, TROPHS #### [address] [address] Basophils/100 WBC (Bld) 0.6 % Normal 0.0-2.5 [facility] ([place] Comment on above: Performed By: #### C BC, ADIFF, ANEU, BMP, MG, GFR, TROPHS #### [address] [address] Eosinophils (Bld) [#/Vol] 0.20 10 3/mcL Normal 0.00-0.65 [facility] ([place] Comment on above: Performed By: #### C BC, ADIFF, ANEU, BMP, MG, GFR, TROPHS #### [address] [address] Eosinophils/100 WBC (Bld) 1.9 % Normal 0.0-6.0 [facility] ([place]) Comment on above: Performed By: #### C BC, ADIFF, ANEU, BMP, MG, GFR, TROPHS #### [address] [address] Lymphocytes (Bld) [#/Vol] 2.30 10 3/mcL Normal 0.90-4.32 [facility] [place] Comment on above: Performed By: #### C BC, ADIFF, ANEU, BMP, MG, GFR, TROPHS #### [address] [address] Lymphocytes/100 WBC (Bld) 18.4 % Low 20.0-40.0 [facility] ([place] Comment on above: Performed By: #### C BC, ADIFF, ANEU, BMP, MG, GFR, TROPHS #### [address] [address] Monocytes/100 WBC (Bld) 9.1 % Normal 2.0-13.0 [facility] [place] Comment on above: Performed By: #### C BC, ADIFF, ANEU, BMP, MG, GFR, TROPHS #### [address] [address] Neutrophils/100 WBC (Bld) 70.0 % Normal 50.0-75.0 [facility] [place] Comment on above: Performed By: #### C BC, ADIFF, ANEU, BMP, MG, GFR, TROPHS #### [address] [address] .GFRon 06-03-2020 GFR >60 Normal [facility] ([place] Comment on above: Result Comment: GFR Population [...] ADIFF, ANEU, BMP, MG, GFR, TROPHS #### [address] [address] GFR Non- 52 ml/min/1.73sqm Normal [facility] ([place] Comment on above: Result Comment: GFR Population [...] ADIFF, ANEU, BMP, MG, GFR, TROPHS #### [address] [address] GFR Non- >60 Normal [facility] [place] Comment on above: Result Comment: GFR Population [...] ADIFF, ANEU, BMP, MG, GFR, TROPHS #### [address] [address] GFR >60 Normal [facility] ([place] Comment on above: Result Comment: GFR Population [...] ADIFF, ANEU, BMP, MG, GFR, TROPHS #### [address] [address] .NEUABSon 06-03-2020 Neutrophils (Bld) [#/Vol] 11.50 10 3/mcL High 2.25-8.10 [facility] ([place] Comment on above: Performed By: #### C BC, ADIFF, ANEU, BMP, MG, GFR, TROPHS #### [address] [address] Neutrophils (Bld) [#/Vol] 17.80 10 3/mcL High 2.25-8.10 [facility] ([place] Comment on above: Performed By: #### C BC, ADIFF, ANEU, BMP, MG, GFR, TROPHS #### [address] [address] Neutrophils (Bld) [#/Vol] 8.90 10 3/mcL High 2.25-8.10 [facility] ([place] Comment on above: Performed By: #### C BC, ADIFF, ANEU, BMP, MG, GFR, TROPHS #### [place] [address] APTTon 06-03-2020 aPTT Coag (Bld) [Time] Heparin IV Normal [facility] ([place] Comment on above: Performed By: #### C BC, ADIFF, ANEU, BMP, MG, GFR, TROPHS #### [place] [address] aPTT Coag (Bld) [Time] 63.5 s High 25.0-35.0 [facility] ([place] Comment on above: Result Comment: For Heparin anticoagulation therapy, the recommended therapeutic range is: 54-77 seconds (APTT Correlation with Anti-Xa therapeutic range of 0.3-0.7 units/ml). PLEASE REFERENCE THE PHARMACY PROTOCOL FOR DOSING. Performed By: #### C BC, ADIFF, ANEU, BMP, MG, GFR, TROPHS #### [address] [address] aPTT Coag (Bld) [Time] 96.5 s High 25.0-35.0 [facility] ([place] Comment on above: Result Comment: For Heparin anticoagulation therapy, the recommended therapeutic range is: 54-77 seconds (APTT Correlation with Anti-Xa therapeutic range of 0.3-0.7 units/ml). PLEASE REFERENCE THE PHARMACY PROTOCOL FOR DOSING. Performed By: #### C BC, ADIFF, ANEU, BMP, MG, GFR, TROPHS #### [place] [id number] aPTT Coag (Bld) [Time] Heparin IV Normal [facility] ([place] Comment on above: Performed By: #### C BC, ADIFF, ANEU, BMP, MG, GFR, TROPHS #### [address] [address] aPTT Coag (Bld) [Time] Heparin IV Normal [facility] ([place] Comment on above: Performed By: #### A PTT #### [place] [id number] aPTT Coag (Bld) [Time] 37.0 s High 25.0-35.0 [facility] ([place] Comment on above: Result Comment: For Heparin anticoagulation therapy, the recommended therapeutic range is: 54-77 seconds (APTT Correlation with Anti-Xa therapeutic range of 0.3-0.7 units/ml). PLEASE REFERENCE THE PHARMACY PROTOCOL FOR DOSING. Performed By: #### A PTT #### [place] [id number] BMPon 06-03-2020 Calcium [Mass/Vol] 9.6 mg/dL Normal 8.4-10.1 [facility] ([place]) Comment on above: Result Comment: No te - New Reference Range in effect 20 Performed By: #### C BC, ADIFF, ANEU, BMP, MG, GFR, TROPHS #### [address] [address] Chloride [Moles/Vol] 106 mmol/L Normal 98-110 [facility] ([place] Comment on above: Performed By: #### C BC, ADIFF, ANEU, BMP, MG, GFR, TROPHS #### [address] [address] CO2 [Moles/Vol] 25 mmol/L Normal 22-32 [facility] ([place] Comment on above: Performed By: #### C BC, ADIFF, ANEU, BMP, MG, GFR, TROPHS #### [place] [phone] Creatinine [Mass/Vol] 1.04 mg/dL Normal 0.50-1.20 [facility] ([place] Comment on above: Performed By: #### C BC, ADIFF, ANEU, BMP, MG, GFR, TROPHS #### [place] [address] Electrolyte Balance 9.0 mEq/L Normal 4.0-15.0 [facility] ([place]) Comment on above: Performed By: #### C BC, ADIFF, ANEU, BMP, MG, GFR, TROPHS #### [place] [id number] Glucose [Mass/Vol] 159 mg/dL High 82-115 [facility] ([place]) Comment on above: Performed By: #### C BC, ADIFF, ANEU, BMP, MG, GFR, TROPHS #### [place] [phone] Potassium [Moles/Vol] 3.9 mmol/L Normal 3.5-5.0 [facility] ([place] Comment on above: Performed By: #### C BC, ADIFF, ANEU, BMP, MG, GFR, TROPHS #### [address] [address] Sodium [Moles/Vol] 140 mmol/L Normal 136-145 [facility] ([place]) Comment on above: Performed By: #### C BC, ADIFF, ANEU, BMP, MG, GFR, TROPHS #### [address] [address] Urea nitrogen [Mass/Vol] 25.0 mg/dL High 8.0-22.0 [facility] ([place] Comment on above: Performed By: #### C BC, ADIFF, ANEU, BMP, MG, GFR, TROPHS #### [address] [address] Urea nitrogen/Creatinine [Mass ratio] 24.0 ratio High 10.0-22.0 [facility] ([place] Comment on above: Performed By: #### C BC, ADIFF, ANEU, BMP, MG, GFR, TROPHS #### [address] [address] Calcium [Mass/Vol] 9.7 mg/dL Normal 8.4-10.1 [facility] ([place]) Comment on above: Result Comment: No te - New Reference Range in effect 20 Performed By: #### C BC, ADIFF, ANEU, BMP, MG, GFR, TROPHS #### [address] [address] Chloride [Moles/Vol] 108 mmol/L Normal 98-110 [facility] ([place] Comment on above: Performed By: #### C BC, ADIFF, ANEU, BMP, MG, GFR, TROPHS #### [address] [address] CO2 [Moles/Vol] 28 mmol/L Normal 22-32 [facility] [place] Comment on above: Performed By: #### C BC, ADIFF, ANEU, BMP, MG, GFR, TROPHS #### [address] [address] Creatinine [Mass/Vol] 0.90 mg/dL Normal 0.50-1.20 [facility] ([place] Comment on above: Performed By: #### C BC, ADIFF, ANEU, BMP, MG, GFR, TROPHS #### [address] [address] Electrolyte Balance 6.0 mEq/L Normal 4.0-15.0 [facility] ([place] Comment on above: Performed By: #### C BC, ADIFF, ANEU, BMP, MG, GFR, TROPHS #### [address] [address] Glucose [Mass/Vol] 96 mg/dL Normal 82-115 [facility] ([place] Comment on above: Performed By: #### C BC, ADIFF, ANEU, BMP, MG, GFR, TROPHS #### [place] [phone] Potassium [Moles/Vol] 4.0 mmol/L Normal 3.5-5.0 [facility] ([place] Comment on above: Performed By: #### C BC, ADIFF, ANEU, BMP, MG, GFR, TROPHS #### [place] [phone] Sodium [Moles/Vol] 142 mmol/L Normal 136-145 [facility] ([place] Comment on above: Performed By: #### C BC, ADIFF, ANEU, BMP, MG, GFR, TROPHS #### [place] [phone] Urea nitrogen [Mass/Vol] 20.0 mg/dL Normal 8.0-22.0 [facility] ([place] Comment on above: Performed By: #### C BC, ADIFF, ANEU, BMP, MG, GFR, TROPHS #### [address] [address] Urea nitrogen/Creatinine [Mass ratio] 22.2 ratio High 10.0-22.0 [facility] ([place] Comment on above: Performed By: #### C BC, ADIFF, ANEU, BMP, MG, GFR, TROPHS #### [address] [address] CBCon 06-03-2020 Erythrocyte distribution width (RBC) [Ratio] 14.0 % Normal 11.5-15.5 [facility] ([place] Comment on above: Performed By: #### C BC, ADIFF, ANEU, BMP, MG, GFR, TROPHS #### [place] [address] Hematocrit (Bld) [Volume fraction] 39.1 % Normal 34.0-46.0 [facility] ([place] Comment on above: Performed By: #### C BC, ADIFF, ANEU, BMP, MG, GFR, TROPHS #### [place] [address] Hemoglobin (Bld) [Mass/Vol] 13.5 G/dL Normal 12.0-16.0 [facility] ([place] Comment on above: Performed By: #### C BC, ADIFF, ANEU, BMP, MG, GFR, TROPHS #### [place] [address] MCH (RBC) [Entitic mass] 31.9 pg Normal 27.0-33.0 [facility] [place] Comment on above: Performed By: #### C BC, ADIFF, ANEU, BMP, MG, GFR, TROPHS #### [place] [id number] MCHC (RBC) [Mass/Vol] 34.5 G/dL Normal 32.0-36.0 [facility] [place] Comment on above: Performed By: #### C BC, ADIFF, ANEU, BMP, MG, GFR, TROPHS #### [place] [phone] MCV (RBC) [Entitic vol] 92.6 fL Normal 80.0-99.0 [facility] ([place] Comment on above: Performed By: #### C BC, ADIFF, ANEU, BMP, MG, GFR, TROPHS #### [place] [phone] Platelet mean volume (Bld) [Entitic vol] 9.3 fL Normal 6.6-10.5 [facility] [place] Comment on above: Performed By: #### C BC, ADIFF, ANEU, BMP, MG, GFR, TROPHS #### [address] [address] Platelets (Bld) [#/Vol] 209 10 3/mcL Normal 150-450 [facility] [place] Comment on above: Performed By: #### C BC, ADIFF, ANEU, BMP, MG, GFR, TROPHS #### [place] [phone] RBC (Bld) [#/Vol] 4.22 10 6/mcL Normal 4.10-5.30 [facility] ([place] Comment on above: Performed By: #### C BC, ADIFF, ANEU, BMP, MG, GFR, TROPHS #### [place] [phone] WBC (Bld) [#/Vol] 15.10 10 3/mcL High 4.50-10.80 [facility] ([place] Comment on above: Performed By: #### C BC, ADIFF, ANEU, BMP, MG, GFR, TROPHS #### [place] [phone] Erythrocyte distribution width (RBC) [Ratio] 14.5 % Normal 11.5-15.5 [facility] ([place] Comment on above: Performed By: #### C BC, ADIFF, ANEU, BMP, MG, GFR, TROPHS #### [place] [phone] Hematocrit (Bld) [Volume fraction] 38.7 % Normal 34.0-46.0 [facility] ([place] Comment on above: Performed By: #### C BC, ADIFF, ANEU, BMP, MG, GFR, TROPHS #### [place] [phone] Hemoglobin (Bld) [Mass/Vol] 13.6 G/dL Normal 12.0-16.0 [facility] ([place] Comment on above: Performed By: #### C BC, ADIFF, ANEU, BMP, MG, GFR, TROPHS #### [place] [phone] MCH (RBC) [Entitic mass] 32.3 pg Normal 27.0-33.0 [facility] ([place] Comment on above: Performed By: #### C BC, ADIFF, ANEU, BMP, MG, GFR, TROPHS #### [address] [address] MCHC (RBC) [Mass/Vol] 35.0 G/dL Normal 32.0-36.0 [facility] ([place] Comment on above: Performed By: #### C BC, ADIFF, ANEU, BMP, MG, GFR, TROPHS #### [place] [phone] MCV (RBC) [Entitic vol] 92.3 fL Normal 80.0-99.0 [facility] ([place] Comment on above: Performed By: #### C BC, ADIFF, ANEU, BMP, MG, GFR, TROPHS #### [address] [address] Platelet mean volume (Bld) [Entitic vol] 8.3 fL Normal 6.6-10.5 [facility] ([place] Comment on above: Performed By: #### C BC, ADIFF, ANEU, BMP, MG, GFR, TROPHS #### [address] [address] Platelets (Bld) [#/Vol] 198 10 3/mcL Normal 150-450 [facility] ([place] Comment on above: Performed By: #### C BC, ADIFF, ANEU, BMP, MG, GFR, TROPHS #### [address] [address] RBC (Bld) [#/Vol] 4.19 10 6/mcL Normal 4.10-5.30 [facility] ([place] Comment on above: Performed By: #### C BC, ADIFF, ANEU, BMP, MG, GFR, TROPHS #### [address] [address] WBC (Bld) [#/Vol] 20.80 10 3/mcL High 4.50-10.80 [facility] ([place] Comment on above: Performed By: #### C BC, ADIFF, ANEU, BMP, MG, GFR, TROPHS #### [place] [phone] Erythrocyte distribution width (RBC) [Ratio] 14.3 % Normal 11.5-15.5 [facility] ([place] Comment on above: Performed By: #### C BC, ADIFF, ANEU, BMP, MG, GFR, TROPHS #### [place] [phone] Hematocrit (Bld) [Volume fraction] 40.5 % Normal 34.0-46.0 [facility] ([place] Comment on above: Performed By: #### C BC, ADIFF, ANEU, BMP, MG, GFR, TROPHS #### [place] [phone] Hemoglobin (Bld) [Mass/Vol] 14.1 G/dL Normal 12.0-16.0 [facility] ([place] Comment on above: Performed By: #### C BC, ADIFF, ANEU, BMP, MG, GFR, TROPHS #### [place] [phone] MCH (RBC) [Entitic mass] 32.1 pg Normal 27.0-33.0 [facility] ([place] Comment on above: Performed By: #### C BC, ADIFF, ANEU, BMP, MG, GFR, TROPHS #### [place] [phone] MCHC (RBC) [Mass/Vol] 34.7 G/dL Normal 32.0-36.0 [facility] ([place] Comment on above: Performed By: #### C BC, ADIFF, ANEU, BMP, MG, GFR, TROPHS #### [place] [phone] MCV (RBC) [Entitic vol] 92.4 fL Normal 80.0-99.0 [facility] ([place] Comment on above: Performed By: #### C BC, ADIFF, ANEU, BMP, MG, GFR, TROPHS #### [place] [address] Platelet mean volume (Bld) [Entitic vol] 8.6 fL Normal 6.6-10.5 [facility] ([place] Comment on above: Performed By: #### C BC, ADIFF, ANEU, BMP, MG, GFR, TROPHS #### [address] [address] Platelets (Bld) [#/Vol] 209 10 3/mcL Normal 150-450 [facility] ([place] Comment on above: Performed By: #### C BC, ADIFF, ANEU, BMP, MG, GFR, TROPHS #### [address] [address] RBC (Bld) [#/Vol] 4.38 10 6/mcL Normal 4.10-5.30 [facility] ([place] Comment on above: Performed By: #### C BC, ADIFF, ANEU, BMP, MG, GFR, TROPHS #### [address] [address] WBC (Bld) [#/Vol] 12.70 10 3/mcL High 4.50-10.80 [facility] ([place] Comment on above: Performed By: #### C BC, ADIFF, ANEU, BMP, MG, GFR, TROPHS #### [address] [address] LUAon 06-03-2020 CHARLENE . MICRO - Microbiology [...] Locations *1: This test was performed at: [address], [address] ([place]) Comment on above: Performed By: #### C BC, ADIFF, ANEU, BMP, MG, GFR, TROPHS #### [address] [address] MGon 06-03-2020 Magnesium [Mass/Vol] 2.0 mg/dL Normal 1.6-2.4 [facility] ([place] Comment on above: Performed By: #### C BC, ADIFF, ANEU, BMP, MG, GFR, TROPHS #### [address] [address] Magnesium [Mass/Vol] 2.0 mg/dL Normal 1.6-2.4 [facility] ([place] Comment on above: Performed By: #### C BC, ADIFF, ANEU, BMP, MG, GFR, TROPHS #### [place] [id number] PROon 06-03-2020 INR Coag (PPP) [Relative time] 1.9 {INR} Normal [facility] ([place] Comment on above: Result Comment: The [employer] (CHEST, 1992, [id number]) recommended therapeutic range for oral anticoagulant therapy is: LOW RISK: Prophylaxis of venous thrombosis INR: 2.0-3.0 Treatment of pulmonary embolism 2.0-3.0 Prevention of systemic embolism 2.0-3.0 HIGH RISK: Mechanical prosthetic valves 2.5-3.5 Performed By: #### P RO #### [place] [address] PT Coag (PPP) [Time] 23.0 s High 9.0-14.6 [facility] ([place]) Comment on above: Result Comment: Effe ctive 03/04/08, Protime results may be affected by some antibiotics (i.e. Ciprofloxacin, Azithromycin, Bactrim) which may potentiate the action of oral anticoagulants, with further increases in Protime/INR. Performed By: #### P RO #### [place] [address] RESCVIDon 06-03-2020 Adenovirus Not Detected Normal Not Detected [facility] ([place] Comment on above: Performed By: #### C BC, ADIFF, ANEU, BMP, MG, GFR, TROPHS #### [place] [address] Bordetella Parapertussis Not Detected Normal Not Detected [facility] ([place]) Comment on above: Performed By: #### C BC, ADIFF, ANEU, BMP, MG, GFR, TROPHS #### [place] [address] Bordetella Pertussis Not Detected Normal Not Detected [facility] ([place] Comment on above: Performed By: #### C BC, ADIFF, ANEU, BMP, MG, GFR, TROPHS #### [place] [address] Chlamydophila pneumoniae Not Detected Normal Not Detected [facility] ([place] Comment on above: Performed By: #### C BC, ADIFF, ANEU, BMP, MG, GFR, TROPHS #### [place] [address] Coronavirus 229E (Not COVID-19) Not Detected Normal Not Detected [facility] ([place] Comment on above: Performed By: #### C BC, ADIFF, ANEU, BMP, MG, GFR, TROPHS #### [place] [address] Coronavirus HKU1 (Not COVID-19) Not Detected Normal Not Detected [facility] ([place] Comment on above: Performed By: #### C BC, ADIFF, ANEU, BMP, MG, GFR, TROPHS #### [place] [address] Coronavirus NL63 (Not COVID-19) Not Detected Normal Not Detected [facility] ([place] Comment on above: Performed By: #### C BC, ADIFF, ANEU, BMP, MG, GFR, TROPHS #### [place] [address] Coronavirus OC43 (Not COVID-19) Not Detected Normal Not Detected [facility] ([place] Comment on above: Performed By: #### C BC, ADIFF, ANEU, BMP, MG, GFR, TROPHS #### [place] [address] Date of Onset [id number] [facility] ([place] Comment on above: Performed By: #### C BC, ADIFF, ANEU, BMP, MG, GFR, TROPHS #### [place] [address] Employed in Healthcare No Normal [facility] [place] Comment on above: Performed By: #### C BC, ADIFF, ANEU, BMP, MG, GFR, TROPHS #### [place] [address] First Test Yes Normal [facility] [place] Comment on above: Performed By: #### C BC, ADIFF, ANEU, BMP, MG, GFR, TROPHS #### [place] [address] Hospitalized Yes Normal [facility] [place] Comment on above: Performed By: #### C BC, ADIFF, ANEU, BMP, MG, GFR, TROPHS #### [place] [address] Human Metapneumovirus Not Detected Normal Not Detected [facility] ([place]) Comment on above: Performed By: #### C BC, ADIFF, ANEU, BMP, MG, GFR, TROPHS #### [place] [address] ICU No Normal [facility] ([place] Comment on above: Performed By: #### C BC, ADIFF, ANEU, BMP, MG, GFR, TROPHS #### [place] [address] Influenza A Not Detected Normal Not Detected [facility] ([place] Comment on above: Performed By: #### C BC, ADIFF, ANEU, BMP, MG, GFR, TROPHS #### [place] [address] Influenza B Not Detected Normal Not Detected [facility] ([place] Comment on above: Performed By: #### C BC, ADIFF, ANEU, BMP, MG, GFR, TROPHS #### [place] [address] Mycoplasma pneumoniae Not Detected Normal Not Detected [facility] ([place]) Comment on above: Performed By: #### C BC, ADIFF, ANEU, BMP, MG, GFR, TROPHS #### [place] [address] Parainfluenza 1 Not Detected Normal Not Detected [facility] ([place]) Comment on above: Performed By: #### C BC, ADIFF, ANEU, BMP, MG, GFR, TROPHS #### [place] [address] Parainfluenza 2 Not Detected Normal Not Detected [facility] ([place] Comment on above: Performed By: #### C BC, ADIFF, ANEU, BMP, MG, GFR, TROPHS #### [place] [address] Parainfluenza 3 Not Detected Normal Not Detected [facility] ([place]) Comment on above: Performed By: #### C BC, ADIFF, ANEU, BMP, MG, GFR, TROPHS #### [place] [address] Parainfluenza 4 Not Detected Normal Not Detected [facility] ([place]) Comment on above: Performed By: #### C BC, ADIFF, ANEU, BMP, MG, GFR, TROPHS #### [place] [address] Not Normal [facility] ([place]) Comment on above: Performed By: #### C BC, ADIFF, ANEU, BMP, MG, GFR, TROPHS #### [place] [address] Resides in Congregate Care Setting No Normal [facility] [place] Comment on above: Performed By: #### C BC, ADIFF, ANEU, BMP, MG, GFR, TROPHS #### [place] [address] Respiratory Syncytial Virus Not Detected Normal Not Detected [facility] ([place]) Comment on above: Performed By: #### C BC, ADIFF, ANEU, BMP, MG, GFR, TROPHS #### [place] [address] Rhinovirus/Enterovir us Not Detected Normal Not Detected [facility] ([place]) Comment on above: Performed By: #### C BC, ADIFF, ANEU, BMP, MG, GFR, TROPHS #### [place] [address] SARS-CoV-2 Not Detected Normal Not Detected [facility] ([place]) Comment on above: Result Comment: This test is being used under the FDA EUA procedure. This assay has been validated in the [facility] for use with nasopharyngeal specimens in [facility]. If a non-validated specimen or test collection [...] ADIFF, ANEU, BMP, MG, GFR, TROPHS #### [place] [address] Symptomatic as Defined by CDC No Normal [facility] ([place] Comment on above: Performed By: #### C BC, ADIFF, ANEU, BMP, MG, GFR, TROPHS #### [place] [address] SPAGotiburcio 06-03-2020 SPAG . MICRO - Microbiology [...] Locations *1: This test was performed at: [address], [address] [place] [address] ([place]) Comment on above: Performed By: #### C BC, ADIFF, ANEU, BMP, MG, GFR, TROPHS #### [address] 06-03-2020 Troponin I High Sensitivity (AH) <2.50 Normal 0.00-34.00 [facility] ([place] Comment on above: Performed By: #### C BC, ADIFF, ANEU, BMP, MG, GFR, TROPHS #### [place] [address] Troponin I High Sensitivity (AH) <2.50 Normal 0.00-34.00 [facility] ([place] Comment on above: Performed By: #### C BC, ADIFF, ANEU, BMP, MG, GFR, TROPHS #### [place] [address] Troponin I High Sensitivity (AH) <2.50 Normal 0.00-34.00 [facility] ([place] Comment on above: Performed By: #### C BC, ADIFF, ANEU, BMP, MG, GFR, TROPHS #### [address] [address] UAon 06-03-2020 Color (U) Dark Yellow Normal [facility] ([place] Comment on above: Performed By: #### C BC, ADIFF, ANEU, BMP, MG, GFR, TROPHS #### [address] [address] Glucose (U) [Mass/Vol] Negative Normal Negative [facility] ([place] Comment on above: Performed By: #### C BC, ADIFF, ANEU, BMP, MG, GFR, TROPHS #### [address] [address] Ketones Ql (U) 15 mg/dL Abnormal Neg-Trace [facility] ([place] Comment on above: Performed By: #### C BC, ADIFF, ANEU, BMP, MG, GFR, TROPHS #### [place] [address] UA Appear Hazy Abnormal Clear [facility] ([place] Comment on above: Performed By: #### C BC, ADIFF, ANEU, BMP, MG, GFR, TROPHS #### [address] [address] UA Blood Small Abnormal Neg-Trace [facility] ([place] Comment on above: Performed By: #### C BC, ADIFF, ANEU, BMP, MG, GFR, TROPHS #### [address] [address] UA Leuk Est Negative Normal Negative [facility] ([place] Comment on above: Performed By: #### C BC, ADIFF, ANEU, BMP, MG, GFR, TROPHS #### [address] [address] UA Nitrite Negative Normal Negative [facility] ([place] Comment on above: Performed By: #### C BC, ADIFF, ANEU, BMP, MG, GFR, TROPHS #### [address] [address] UA pH 5.5 Normal 5.0 - 8.0 [facility] ([place] Comment on above: Performed By: #### C BC, ADIFF, ANEU, BMP, MG, GFR, TROPHS #### [address] [address] UA Protein Negative Normal Negative [facility] ([place] Comment on above: Performed By: #### C BC, ADIFF, ANEU, BMP, MG, GFR, TROPHS #### [address] [address] UA Spec Grav 1.020 Normal 1.006-1.029 [facility] ([place] Comment on above: Performed By: #### C BC, ADIFF, ANEU, BMP, MG, GFR, TROPHS #### [address] [address] UA Specimen Type Clean Catch Normal [facility] [place] Comment on above: Performed By: #### C BC, ADIFF, ANEU, BMP, MG, GFR, TROPHS #### [address] [address] UA Urobilinogen 1.0 E.U./dL Normal 0.2-1.0 [facility] ([place] Comment on above: Performed By: #### C BC, ADIFF, ANEU, BMP, MG, GFR, TROPHS #### [place] [address] Urobilinogen Qn (U) Negative Normal Neg-Trace [facility] ([place]) Comment on above: Performed By: #### C BC, ADIFF, ANEU, BMP, MG, GFR, TROPHS #### [place] [id number] UAMICon 06-03-2020 RBC (U) [#/Vol] 3-5 Abnormal 0-2 [facility] ([place] Comment on above: Performed By: #### C BC, ADIFF, ANEU, BMP, MG, GFR, TROPHS #### [place] [address] UA Bacteria Trace Abnormal Negative [facility] ([place] Comment on above: Performed By: #### C BC, ADIFF, ANEU, BMP, MG, GFR, TROPHS #### [place] [address] UA Coarse Granular Casts Rare Abnormal [facility] [place] Comment on above: Performed By: #### C BC, ADIFF, ANEU, BMP, MG, GFR, TROPHS #### [address] [address] UA Fine Granular Casts Rare Normal [facility] [place] Comment on above: Performed By: #### C BC, ADIFF, ANEU, BMP, MG, GFR, TROPHS #### [place] [address] UA Mucous 2+ /hpf Normal [facility] ([place] Comment on above: Performed By: #### C BC, ADIFF, ANEU, BMP, MG, GFR, TROPHS #### [place] [address] UA Squam Epithelial 25-50 Abnormal 0-20 [facility] ([place]) Comment on above: Performed By: #### C BC, ADIFF, ANEU, BMP, MG, GFR, TROPHS #### [place] [address] UA WBC 0-2 Normal 0-5 [facility] ([place] Comment on above: Performed By: #### C BC, ADIFF, ANEU, BMP, MG, GFR, TROPHS #### [place] [address] XR CHEST 2 VIEWSon 0 XR CHEST [...] 06/03/2020 3:39:20 PM Ordering Provider:Antonio Thao Normal [facility] ([place]) CT ANGIOGRAPHY CHEST W/CONTR Romelia 05-28-2020 CT [...] Fleischner Society guidelines. For low risk patients, [id number] is optional. These followup recommendations do not apply in immunocompromised patients or patients with cancers who are at risk for metastasis. Interpreted By: Marshal Kamara MD Preliminary Report By: Marshal Kamara MD Electronically Signed By: Marshal Kamara MD Dictated Date: 05/28/2020 9:06:59 AM Prelim Date: 05/28/2020 9:06:59 AM Sign Date: 05/28/2020 9:14:22 AM Ordering Provider:Flo Michael [facility] ([place]) [facility] 06-17-2017 Anion gap 9 mmol/L Normal 5-16 [facility] [place] Comment on above: Order Comment: Carolynn s: Alba Performed By: #### L 500.41004, L500.16896 ####[facility] DGDCSNIMHP0478 [place], [place] [address]Eb# [phone] BUN/Creatinine Ratio 21 mg/mg Normal 15-24 [facility] Comment on above: Order Comment: Campu s: M Performed By: #### L 500.97008, L500.45782 ####[facility] [id number] [place] [address]Gr# [phone] Calcium 8.6 mg/dL Normal 8.5-10.1 [facility] Comment on above: Order Comment: Campu s: M Performed By: #### L 500.61328, L500.29253 ####[facility] [id number] [place] [address]Qz# [phone] Chloride 104 mmol/L Normal 98-107 [facility] Comment on above: Order Comment: Campu s: M Performed By: #### L 500.81603, L500.25851 ####[facility] [id number] [place] [address]Oy# [phone] CO2 24 mmol/L Normal 21-32 [facility] Comment on above: Order Comment: Campu s: M Performed By: #### L 500.16027, L500.53033 ####[facility] ICJXOHAMTR1055 [place], [place] [address]Nj# [phone] Creatinine 0.841 mg/dL Normal 0.510-0.950 [facility] Comment on above: Order Comment: Campu s: M Result Comment: Amanda ents receiving either N-Acetylcysteine (NAC) orMetamizole prior to venipuncture, may have falsely depressedresults. Performed By: #### L 500.80927, L500.91132 ####[facility] [id number] [place] [address]Zo# [phone] Glucose mass conc 295 mg/dL High 70-100 [facility] Comment on above: Order Comment: Campu s: M Result Comment: 70-1 00-Normal Fasting; [phone] Fasting; greaterthan 126 on more than one result-Diabetes. ADA guidelines Performed By: #### L 500.73043, L500.15588 ####[facility] VSKTSHKDWQ2277 [place], [place] [address]Ds# [phone] Potassium molar conc 4.2 mmol/L Normal 3.5-5.1 [facility] [place] Comment on above: Order Comment: Campu s: M Performed By: #### L 500.08487, L500.38070 ####[address] [address]Fx# [phone] Sodium 137 mmol/L Normal 136-145 [facility] [place] Comment on above: Order Comment: Campu s: M Performed By: #### L 500.94416, L500.87138 ####[address] [address]Kv# [phone] Urea nitrogen 18 mg/dL Normal 7-26 [facility] [place] Comment on above: Order Comment: Campu s: M Performed By: #### L 500.93662, L500.09052 ####[facility] VZQ[address] [place] [address]Gx# [phone] CBC W/DIFFon 06-17-2017 BASO ABS 0.00 K/CU MM Normal 0-0.2 [facility] Comment on above: Order Comment: Campu s: M Performed By: #### L 200.53517 ####[facility] [id number] [place] [address]Mh# [phone] Basophils/100 WBC Auto (Bld) 0.1 % Normal 0-2 [facility] Comment on above: Order Comment: Campu s: M Performed By: #### L 200.70062 ####[facility] [id number] [place] [address]Me# [phone] EOS ABS 0.00 K/CU MM Normal 0-0.5 [facility] [place] Comment on above: Order Comment: Campu s: M Performed By: #### L 200.70832 ####[facility] XZQUPOBZUE2483 [place], [place] [address]Uz# [phone] Eosinophils/100 leukocytes 0.0 % Normal 0-5 [facility] Comment on above: Order Comment: Campu s: M Performed By: #### L 200.24891 ####[facility] JGTJHZDCEX6545 [place], [place] [address]Vu# [phone] Erythrocyte distribution width Auto Ratio (RBC) 14.6 % High 11-14.5 [facility] Comment on above: Order Comment: Campu s: M Performed By: #### L 200.68603 ####[facility] [id number] [place] [address]Ed# [phone] Erythrocytes (RBC) 0.0 % Normal Less than 1 [facility] Comment on above: Order Comment: Campu s: M Performed By: #### L 200.61013 ####[facility] RIASSAXCAZ[address] [place] [address]Me# [phone] Erythrocytes (RBC) 3.61 M/CU MM Low 3.90-5.30 [facility] Comment on above: Order Comment: Campu s: M Performed By: #### L 200.78629 ####[facility] [id number] [place] [address]Hm# [phone] Hematocrit (HCT) 31.3 % Low 35.0-47.0 [facility] Comment on above: Order Comment: Campu s: M Performed By: #### L 200.38691 ####[facility] [id number] [place] [address]Fl# [phone] Hemoglobin mass conc (Bld) 10.7 g/dL Low 11.5-15.5 [facility] Comment on above: Order Comment: Campu s: M Performed By: #### L 200.33531 ####[facility] [address]VAEWYXP[address] [place] [address]Sj# [phone] IMMATR GRAN ABS 0.10 K/CU MM Normal Less than 2 [facility] [place] Comment on above: Order Comment: Campu s: M Performed By: #### L 200.62444 ####[facility] PXNNQCYZZU0984 [place], [place] [address]Ah# [phone] IMMATURE GRAN % 0.9 % Normal Less than 2 [facility] [place] Comment on above: Order Comment: Campu s: M Performed By: #### L 200.35598 ####[facility] [address] [place], [place] [address]Ph# [phone] Lymphocytes 1.40 K/CU MM Normal 0.9-4.4 [facility] Comment on above: Order Comment: Campu s: M Performed By: #### L 200.86298 ####[facility] [id number] [place], [place] [address]Ph# [phone] Lymphocytes/100 leukocytes 12.0 % Low 20-40 [facility] [place] Comment on above: Order Comment: Campu s: M Performed By: #### L 200.89440 ####[facility] TYWTMOBWHN[address] [place], [place] [address]Ph# [phone] MCHC mass conc (RBC) 34.2 g/dL Normal 32.0-36.0 [facility] [place] Comment on above: Order Comment: Campu s: M Performed By: #### L 200.46672 ####[facility] GTOKLXMOJI[address] [place], [place] [address]Ph# [phone] MCV 86.7 fL Normal 80.0-99.0 [facility] [place] Comment on above: Order Comment: Campu s: M Performed By: #### L 200.19661 ####[facility] LZOKVATOKX[address] [place], [place] [address]Ph# [phone] MONO ABS 0.70 K/CU MM Normal 0.1-1.1 [facility] Comment on above: Order Comment: Campu s: M Performed By: #### L 200.48504 ####[facility] GUIAQIBEJP[address] [place], [place] [address]Ph# [phone] Monocytes/100 leukocytes 6.5 % Normal 2-10 [facility] [place] Comment on above: Order Comment: Campu s: M Performed By: #### L 200.66100 ####[facility] HVVCNPGUUN1332 [place], [place] [address]Sd# [phone] Neutrophils 9.10 K/CU MM High 2.0-8.3 [facility] Comment on above: Order Comment: Campu s: M Performed By: #### L 200.88469 ####[facility] LSUJEJCAUY3535 [place], [place] [address]Me# [phone] Neutrophils/100 WBC Auto (Bld) 80.5 % High 45-75 [facility] Comment on above: Order Comment: Campu s: M Performed By: #### L 200.03926 ####[facility] HIVZUOPJVA7174 [place], [place] [address]Wb# [phone] Platelet mean volume (PMV) 10.6 fL Normal 9.4-12.4 [facility] Comment on above: Order Comment: Campu s: M Performed By: #### L 200.97168 ####[facility] OILLJRZKFL4224 [place], [place] [address]Wn# [phone] Platelets 178 K/CU MM Normal 150-450 [facility] Comment on above: Order Comment: Campu s: M Performed By: #### L 200.79401 ####[facility] WXUMSSWFVA2799 [place], [place] [address]Ox# [phone] WBC (Leukocytes) 11.3 K/CU MM High 4.5-11.0 [facility] Comment on above: Order Comment: Campu s: M Performed By: #### L 200.29344 ####[facility] AWFNAILYRI2669 [place], [place] [address]Sv# [phone] GFR ESTon 06-17-2017 IF AMER Greater than 60 Normal [facility] Comment on above: Order Comment: Campu s: M Performed By: #### L 550.98381 ####[place] [address] [place], [place] [address]Zw# [phone] IF non-AFR AMER Greater than 60 Normal [facility] Comment on above: Order Comment: Campu s: M Performed By: #### L 550.21844 ####[facility] QQPPKORESX6996 [place], [place] [address]Vk# [phone] GLUCOSE METERon 06-17-2017 Glucose mass conc 326 mg/dL High 85-125 [facility] Glucose mass conc 335 mg/dL High 85-125 [facility] Glucose mass conc 378 mg/dL High 85-125 [facility] BMPon 06-16-2017 Anion gap 11 mmol/L Normal 5-16 [facility] Comment on above: Order Comment: Campu s: M Performed By: #### L 500.48217, L500.68353, L500.82067 ####[facility] BYIGEPHDOH3759 [place], [place] [address]Sf# [phone] BUN/Creatinine Ratio 20 mg/mg Normal 15-24 [facility] Comment on above: Order Comment: Campu s: M Performed By: #### L 500.44989, L500.14110, L500.41480 ####[facility] RTDKAEVMXN7002 [place], [place] [address]Dc# [phone] Calcium 8.6 mg/dL Normal 8.5-10.1 [facility] Comment on above: Order Comment: Campu s: M Performed By: #### L 500.28771, L500.72293, L500.57931 ####[facility] IJVTVSFQEZ1640 [place], [place] [address]Zx# [phone] Chloride 105 mmol/L Normal 98-107 [facility] Comment on above: Order Comment: Campu s: M Performed By: #### L 500.40066, L500.28476, L500.90556 ####[facility] ZUABLCCOFR8652 [place], [place] [address]Oe# [phone] CO2 23 mmol/L Normal 21-32 [facility] [place] Comment on above: Order Comment: Campu s: M Performed By: #### L 500.01611, L500.64125, L500.68679 ####[facility] LAUMWRFHYN3254 [place], [place] [address]Ny# [phone] Creatinine 0.845 mg/dL Normal 0.510-0.950 [facility] Comment on above: Order Comment: Campu s: M Result Comment: Amanda ents receiving either N-Acetylcysteine (NAC) orMetamizole prior to venipuncture, may have falsely depressedresults. Performed By: #### L 500.14335, L500.21678, L500.10630 ####[facility] STBFCXHBMX4206 [place], [place] [address]Kk# [phone] Glucose mass conc 200 mg/dL High 70-100 [facility] Comment on above: Order Comment: Campu s: M Result Comment: 70-1 00-Normal Fasting; [phone] Fasting; greaterthan 126 on more than one result-Diabetes. ADA guidelines Performed By: #### L 500.43426, L500.78126, L500.70388 ####[facility] NIAJUEQUJA5892 [place], [place] [address]Uj# [phone] Potassium molar conc 3.9 mmol/L Normal 3.5-5.1 [facility] Comment [facility]: Order Comment: Campu s: M Performed By: #### L 500.77295, L500.38390, L500.07400 ####[facility] LHPCDISRTG5663 [place], [place] [address]Pk# [phone] Sodium 139 mmol/L Normal 136-145 [facility] Comment on above: Order Comment: Campu s: M Performed By: #### L 500.90532, L500.12424, L500.95248 ####[facility] MOGJMSCFNL8929 [place], [place] [address]Dd# [phone] Urea nitrogen 17 mg/dL Normal 7-26 [facility] Comment on above: Order Comment: Campu s: M Performed By: #### L 500.69671, L500.74497, L500.27707 ####[facility] IEUUKBPRNI2374 [place], [place] [address]Mw# [phone] CBC W/DIFFon 06-16-2017 BASO ABS 0.10 K/CU MM Normal 0-0.2 [facility] Comment on above: Order Comment: Campu s: M Performed By: #### L 200.21228 ####[facility] LDEZDRHDGG[address] [place], [place] [address]Ph# [phone] Basophils/100 WBC Auto (Bld) 0.6 % Normal 0-2 [facility] [place] Comment on above: Order Comment: Campu s: M Performed By: #### L 200.42975 ####[address] [address]Mf# [phone] EOS ABS 0.30 K/CU MM Normal 0-0.5 [facility] [place] Comment on above: Order Comment: Campu s: M Performed By: #### L 200.66340 ####[place] [address]Ph# [phone] Eosinophils/100 leukocytes 3.9 % Normal 0-5 [facility] [place] Comment on above: Order Comment: Campu s: M Performed By: #### L 200.07645 ####[facility] [address]RIUUMYABS[address] [place] [address]Xd# [phone] Erythrocyte distribution width Auto Ratio (RBC) 15.4 % High 11-14.5 [facility] Comment on above: Order Comment: Campu s: M Performed By: #### L 200.98408 ####[facility] GASBJEHLEH[address] [place] [address]Dc# [phone] Erythrocytes (RBC) 0.0 % Normal Less than 1 [facility] [place] Comment on above: Order Comment: Campu s: M Performed By: #### L 200.07252 ####[facility] HKBIRSBNTT[address] [place], [place] [address]Ph# [phone] Erythrocytes (RBC) 3.92 M/CU MM Normal 3.90-5.30 [facility] [place] Comment on above: Order Comment: Campu s: M Performed By: #### L 200.19565 ####[facility] GQXAZKTSAD6389 [place], [place] [address]Dk# [phone] Hematocrit (HCT) 34.5 % Low 35.0-47.0 [facility] [place] Comment on above: Order Comment: Campu s: M Performed By: #### L 200.79564 ####[place] [address]8Ph# [phone] Hemoglobin mass conc (Bld) 11.4 g/dL Low 11.5-15.5 [facility] Comment on above: Order Comment: Campu s: M Performed By: #### L 200.28611 ####[place] [address]Ph# [phone] IMMATR GRAN ABS 0.00 K/CU MM Normal Less than 2 [facility] [place] Comment on above: Order Comment: Campu s: M Performed By: #### L 200.23085 ####[facility] UTFQAUUKOL[address] [place], [place] [address]Ph# [phone] IMMATURE GRAN % 0.5 % Normal Less than 2 [facility] [place] Comment on above: Order Comment: Campu s: M Performed By: #### L 200.73672 ####[facility] IISGXQYODZ[address] [place], [place] [address]Ph# [phone] Lymphocytes 1.90 K/CU MM Normal 0.9-4.4 [facility] [place] Comment on above: Order Comment: Campu s: M Performed By: #### L 200.57637 ####[facility] BQXFKNGMGS[address] [place], [place] [address]Ph# [phone] Lymphocytes/100 leukocytes 22.9 % Normal 20-40 [facility] [place] Comment on above: Order Comment: Campu s: M Performed By: #### L 200.05818 ####[facility] KPEGILNPLO3365 [place], [place] [address]Ma# [phone] MCHC mass conc (RBC) 33.0 g/dL Normal 32.0-36.0 [facility] Comment [facility]: Order Comment: Campu s: M Performed By: #### L 200.75992 ####[facility] BHBVMTOFPB[address] [place], [place] [address]Ph# [phone] MCV 88.0 fL Normal 80.0-99.0 [facility] Comment on above: Order Comment: Campu s: M Performed By: #### L 200.10207 ####[place] [address]8Ph# [phone] MONO ABS 0.70 K/CU MM Normal 0.1-1.1 [facility] Comment on above: Order Comment: Campu s: M Performed By: #### L 200.52668 ####[facility] WJCUWRKVLY[address] [place], [place] [address]Ph# [phone] Monocytes/100 leukocytes 8.8 % Normal 2-10 [facility] Comment on above: Order Comment: Campu s: M Performed By: #### L 200.50658 ####[facility] WJPRMETKYU[address] [place], [place] [address]Ph# [phone] Neutrophils 5.20 K/CU MM Normal 2.0-8.3 [facility] Comment on above: Order Comment: Campu s: M Performed By: #### L 200.84872 ####[facility] GHQRDTXPNY[address] [place], [place] [address]Ph# [phone] Neutrophils/100 WBC Auto (Bld) 63.3 % Normal 45-75 [facility] Comment on above: Order Comment: Campu s: M Performed By: #### L 200.45406 ####[facility] OJYYIQFKRN[address] [place], [place] [address]Ph# [phone] Platelet mean volume (PMV) 10.2 fL Normal 9.4-12.4 [facility] Comment on above: Order Comment: Campu s: M Performed By: #### L 200.83178 ####[facility] GOOEPUTAER8535 [place], [place] [address]Qe# [phone] Platelets 203 K/CU MM Normal 150-450 [facility] Comment on above: Order Comment: Campu s: M Performed By: #### L 200.03593 ####[facility] YCQYWVLKUD6124 [place], [place] [address]Hf# [phone] WBC (Leukocytes) 8.2 K/CU MM Normal 4.5-11.0 [facility] Comment on above: Order Comment: Campu s: M Performed By: #### L 200.53250 ####[facility] [id number] [place], [place] [address]Nz# [phone] DISCH.SUMon 06-16-2017 [facility] Patient Name: CARMEN HARVEY [id number] [facility] Date of : [address] [place] [id number] Unit Number: [id number] Number: [id number] Summary Patient Status: DIS INoAttending Doctor: Frida [...] discharge patient home.Vital SignsVital Signs (Last)ResultDate TimePulse Um5179 1428B/P123/6410 6360Jflr09.810/ 4233Doaic0985 8368Kgze8720 1428Pertinent Physical FindingsPhysical Exam:General: Patient is alert [...] Glucose 258 H1 0717:Troponin I Less than 0.8917806/16/17 0717:[Embedded Image Not Available]Anion Gap 11, Est [...] RDW Cancelled, Plt Count Cancelled, SegNeutrophils % Nsglbkuyz58/27/17 0430:Troponin I Qotyavvhm35/27/17 0009:Troponin I Less than 0.3084406/15/172021:Whole Bld Glucose 216 H1 1916:Troponin I Less than 0.6597406/15/17 1837:INR 1.8 H, PT Normal Mean Secs 18.5 HPrescriptionsStop taking the following medications:Apixaban (Eliquis) 5 MG TABLET ORAL 2 TIMES DAILY Qty = 30Continue taking these medications:[NOVOLIN N]50 UNITS SUBCUTANEOUS 2 TIMES DAILYLosartan Potassium* (Cozaar Tab*) 100 MG GPIIOS225 MILLIGRAM ORAL EVERY DAYMontelukast Sodium* (Singulair 10 MG Tablet*) 10 MG CNUHLQ28 MILLIGRAM ORAL EVERY DAYLORazepam* (Ativan 0.5MG Tab*) 0.5 MG TABLET0.5 MILLIGRAM ORAL 3 TIMES DAILYTriamterene/Hctz* (Dyazide 37.5-25 Cap*) 1 EACH CAPSULE1 TABLET ORAL EVERY DAYOmeprazole (PrilOSEC CAP) 40 MG CAPSULE.DR40 MILLIGRAM ORAL EVERY DAYAtorvastatin Calcium* (Lipitor 40MG Tab*) 40 MG FNEQQB58 MILLIGRAM ORAL AT BEDTIMEFolic Acid* (Folvite 1MG Tab*) 1 MG TABLET1 MILLIGRAM ORAL EVERY DAYCalcium Carbonate/Vitamin D3* (Oscal 500/200+D Tab*) 1 EACH TABLET1 TABLET ORAL EVERY DAYAscorbic Acid* (Vitamin C 500MG Tab*) 500 MG CAPSULE.ER1,000 MILLIGRAM ORAL EVERY DAYCyanocobalamin (Vitamin B-12)* (Vitamin B-12 100MCG Tab*) 100 MCG YAGQDV001 MICROGRAM ORAL EVERY DAY[VITAMIN B6]1 TABLET ORAL QDNitroglycerin (Nitrostat 0.4MG Tablet Sl) 0.4 MG/1 BOT 82JEETAL3.4 MILLIGRAM SUBLINGUAL EVERY 5 MINUTES NEEDED as needed for AnginaQty = 30Sotalol HCl* (Betapace 120MG Tab*) 120 MG TFREEJ064 MILLIGRAM ORAL 2 TIMES DAILYQty = 60[BIOTIN]1,000 MICROGRAM ORAL EVERY DAYPotassium Chloride (KCl) (K-Dur 20MEQ Tablet SA) 20 MEQ UDTAB20 MILLIEQUIVALENT ORAL TWICE A DAY 30MIN BEFORE MEALSQty = 60Warfarin Sodium* (Coumadin 2.5MG Tab*) 2.5 MG TABLET3.5 MILLIGRAM ORAL EVERY DAYNiacin* (Niacin Tab SA*) 1,000 MG TABLET.ER1,000 MILLIGRAM ORAL AT BEDTIMEMagnesium OXIDE* (Mag-Ox 400 MG Tab*) 400 MG ORQUX786 MILLIGRAM ORAL EVERY DAYStart taking the following new medications:Aspirin (Adult Low Strength Aspirin) 81 MG TABLET.DR81 MILLIGRAM ORAL DAILY WITH A MEALQty = 30No RefillsReferralsOrdered ReferralsFamily Medicine In One WeekFor Groups:[pcp]Cardiology Referral In One-Two WeeksFor Providers:Abelino Plasencia MD[address] [address] Condition : StableDisposition HomePhys Discharge Time Incur(Min) 25DisclaimerThis dictation was created using voice recognition software.Phonetic and/or minor grammatical errors may exist.eSign Date and TimeDCarrie prather MD Verified/Reviewed by 06/19/17 1651 [facility] Discharge Summary [facility] GFR ESTon 06-16-2017 IF AMER Greater than 60 [facility] Comment on above: Order Comment: Carolynn s: M Performed By: #### L 500.63995, L500.69361, L500.04407 ####[facility] [id number] [place], [place] [address]Du# [phone] IF non-AFR AMER Greater than 60 [facility] Comment on above: Order Comment: Carolynn s: M Performed By: #### L 500.09639, L500.27610, L500.34939 ####[facility] [id number] [place], [place] [address]Eh# [phone] GLUCOSE METERon 06-16-2017 Glucose mass conc 274 mg/dL High 85-125 [facility] Glucose mass conc 258 mg/dL High 85-125 [facility] Glucose mass conc 199 mg/dL High 85-125 [facility] 06-16-2017 Magnesium 1.9 mg/dL Normal 1.6-2.6 [facility] Comment on above: Order Comment: Carolynn baumann: Alba Performed By: #### L 500.96744, L500.11411, L500.72201 ####[facility] [id number] [place], [place] [address]Xu# [phone] [facility] 06-16-2017 PROG [facility] Patient Name: CARMEN HARVEY [id number] [facility] Date of : [address] [place] [address] Unit Number: [id number] Number: [id number] Note-Hospitalist Patient Status: ADM INoAttending Doctor: Frida Cotne MDService Date: 06/16/17 1514See AddendumChief ComplaintChief ComplaintAbnormal stress testSubjectiveS: (2 ROS minimum)Patient denied having chest pain shortness breath fever chills nausea vomiting diarrheaObjective (ROS)Nursing VitalsVital Signs (Last)ResultDate TimePulse Yj1376/27 1428B/P123/6410/27 8147Yyli14.810/27 3004Zthno7142/27 2630Bhmv9527/ 1428Physical Exam:General: Patient is alert and oriented [...] Glucose 258 H1 0717:Troponin I Less than 0.6227406/16/17 0717:[Embedded Image Not Available]Anion Gap 11, Est [...] RDW Cancelled, Plt Count Cancelled, SegNeutrophils % Ojgbsobjc20/27/17 0430:Troponin I Pdiibdzrj33/27/17 0009:Troponin I Less than 0.1808106/15/17 202:Whole Bld Glucose 216 H1 1916:Troponin I Less than 0.1694106/15/17 1837:INR 1.8 H, PT Normal Mean Secs [...] hayes MD Verified/Reviewed by 06/16/17 1637 Normal [facility] Progress Note-Hospitalist Normal [facility] PTon 06-16-2017 INR Coag RelTime (PPP) 1.4 {INR} High 0.9-1.1 [facility] Comment on above: Order Comment: Carolynn s: M Result Comment: Mario mmended PT INR therapeutic range for floor layer apprentice andprophylactic therapy is 2.0 - 3.0. For heart valve andshunt patients the range is 2.5 - 3.5. Performed By: #### L 300.35867 ####[facility] [id number] [place], [place] [address]Bd# [phone] PTS 14.7 SECONDS High 9.4-12.0 [facility] Comment on above: Order Comment: Carolynn s: M Performed By: #### L 300.21744 ####[facility] [id number] [place] [address]Ub# [phone] TROPONIN Ion 06-16-2017 Troponin I.cardiac mass conc 0.015 ng/mL Normal 0.000-0.045 [facility] Comment on above: Order Comment: Jalenu s: M Performed By: #### L 550.42034 ####[facility] [id number] [place] [address]Ew# [phone] Troponin I.cardiac mass conc 0.015 ng/mL Normal 0.000-0.045 [facility] Comment on above: Order Comment: Carolynn s: M Performed By: #### L 550.87822 ####[facility] [id number] [place] [address]An# [phone] VLARon 06-16-2017 NON-INVASIVE ARTERIAL REPORT Normal [facility] SOFIA VASCULAR MEDSTREAMIN G REPORT -------Patient: CARMEN HARVEY [id number] Phy:MR: [id number] for Visit: POSITIVE STRESS TESTDate of Service [...] Full Report is available via link to [employer] under [facility] Lab Image Viewer. [facility] PATIENT NAME: CARMEN AHRVEY [id number] [facility] [address] [facility] REC #: [id number], [place] [address] DATE: 06/15/17DISCHARGE DATE:NON-INVASIVE ARTERIAL REPORT ATTENDING PHY: Frida Conte MDElectronically Signed by: Rayo Del Toro MD Esign Date: 06/17/17 [facility] 06-15-2017 CARDIAC CATH [facility] DATE OF SERVICE: 06/16/2017BRIEF DEMOGRAPHICS: This is a 71-year-old female who has some chest discomfort. [facility] that showed moderateischemia in the distal [...] as local anesthetic. The needle was removed. A6-Senegalese sheath was then placed in the right femoral artery. A 6-Senegalese JL-4catheter was then placed in the ascending aorta, which was a bit too large. Thiscatheter was then removed. A 6-Senegalese JL-3.5 catheter was then placed in theascending aorta. The left coronary artery was selectively cannulated and multipleviews and projections of this vessel were obtained. This catheter was thenwithdrawn. A 6-Senegalese JR-4 catheter was then placed in the ascending aorta and itwas used to cannulate the right coronary artery and both saphenous vein grafts. Thiscatheter was then removed. A 6-Senegalese ____ catheter was then placed in the ascendingaorta and the left internal mammary was selectively cannulated and multiple views andprojections of this vessel were obtained. This catheter was then removed. A6-Senegalese pigtail catheter was then placed in the [...] wall motion, and ejection fraction of 70%. [facility] PATIENT NAME: CARMEN HARVEY [id number] [place] [address] [facility] REC #: [id number], [place] [address] DATE: 06/15/17DISCHARGE DATE: 06/17/17CARDIAC CATH ATTENDING PHY: Carrie Feliz MDThe mitral valve was normal. There was no mitral regurgitation.CORONARY ARTERIES:1. Left main trunk: The left main trunk had a distal 30% stenosis. There is a mid70% stenosis after the first septal healthcare management consultant and before the first diagonal. Thefirst diagonal [...] Recommend medical treatment including risk factor modification. EMHDI Johnson/[id number]: 06/16/2017 15:46DT: 06/16/2017 17:29SSI File#: [id number] #: [id number]: Ann Marie Castano MD [phone] Feliz MD Verified/Revie wed by06/20/17 1127 VISHNU [facility] PATIENT NAME: CARMEN HARVEY [id number] [facility] [address] MEDICAL REC #: [id number], [place] [address] DATE: 06/15/17DISCHARGE DATE: 06/17/17CARDIAC CATH ATTENDING PHY: Carrie Feliz MD [facility] CCCASEon 06-15-2017 CARDIAC END OF CASE [facility] Directions to brittani w CARDIAC END OF CASE REPORT in a PDF formatTo view the Cardiac END OF CASE reportyou must go to Clinical Review (PWM/Physician Desktop) and- Select the patient- Select the Vist the report is on- Click the Globe on the bottom left and the PDF report will launch(PDF's can't be viewed in [employer] directly)\\parkview healthyxperif.Ecochlor\Case_Reports\[id number] OC_000.pdf [facility] Erna CRon 06-15-2017 CR DATE OF CONSULTATION : 06/15/2017REASON FOR CONSULTATION: Chest pain an abnormal stress test.HISTORY OF PRESENT ILLNESS: This is a 71-year-old female with a history of previouscoronary artery bypass graft surgery, hypertension, diabetes mellitus and paroxysmalatrial fibrillation who now presents for recurrent complaints of fluttering andmidsternal chest pressure. The patient first started having cardiac problems back ue3305. She had exertional chest pressure and shortness [...] she had additional chest burning and presentedto [facility]. She was recommended for another catheterization. Atthat time, it felt like a hot logging engineer her back. A cardiac catheterization onSept2001 showed [...] 72%. The patient was treated medically and [facility] PATIENT NAME: CARMEN HARVEY [id number] [facility] Dr. [address] MEDICAL REC #: [id number], [place] [address] DATE: 06/15/17DISCHARGE DATE:CONSULTATION REPORT ATTENDING PHY: Frida [...] anteriorly across the chest. [facility] She subsequently underwent another cardiaccatheterization on July [...] at home. She was hospitalized May 25 [facility] with atrial fibrillation that converted spontaneously tosinus [...] P.M. During that chest discomfort, she wentto [facility]. She had a Lexiscan nuclear done today. She wasthought to have atypical chest discomfort during the Lexiscan infusion. The nuclearimages were read as showing a small area of mild ischemia in the distal inferolateraland inferior region. The patient was also felt to be in sinus rhythm when she wasthere, despite still having the flutter feeling. [facility] 1.9 today. Her [...] hysterectomy, cholecystectomy, multiple dilation and curettages, carpal [facility] PATIENT NAME: CARMEN HARVEY [id number] [facility] [address] MEDICAL REC #: [id number], [place] [address] DATE: 06/15/17DISCHARGE DATE:CONSULTATION REPORT ATTENDING PHY: Frida [...] is , has 3 children. 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 Former cigarette smoker. She smoked 1 pack per week for 26 years, quitin 1986.REVIEW OF SYSTEMS: Other 10-point review of systems other than above appear to benegative. [facility] PATIENT NAME: CARMEN HARVEY [id number] [facility] [address] MEDICAL REC #: [id number], [place] [address] DATE: 06/15/17DISCHARGE DATE:CONSULTATION REPORT ATTENDING PHY: Frida [...] count yesterday was 10.8 thousand, hemoglobin 12.9, desdmeocsc84.4, platelets 231,000.IMPRESSION:1. A 71-year-old female with some unexplained chest discomfort. She started withpalpitations and then midsternal chest pressure. This was continued for 7 hours.The pressure is bothersome, but the duration is long for angina. Nuclear study donetoday at [facility] shows a small area of mild ischemia [...] spontaneously at homeand she was hospitalized at [facility] on May 25, 2017. Sheconverted spontaneously. At that time, she had diarrhea and low potassium. Wedecided to leave her on sotalol.4. Type 2 diabetes mellitus.5. Hypertension.6. Hyperlipidemia.7. She has a history of diverticulitis.8. History of nephrolithiasis. [facility] PATIENT NAME: CARMEN HARVEY [id number] [facility] [address] Mur[address] [facility] REC #: [id number], [place] [address] DATE: 06/15/17DISCHARGE DATE:CONSULTATION REPORT ATTENDING PHY: Frida [...] the medical care of thispatient. Abelino Plasencia MDJT/[id number]: 06/15/2017 18:44DT: 06/15/2017 20:57SSI File#: [id number] #: [id number]: Ann Marie Castano MD [phone]/Rev iewed by06/17/17 1316 TSAJO [facility] PATIENT NAME: CARMEN HARVEYRosa Isela [facility] MEDICAL REC #: [id number], [place] [address] DATE: 06/15/17DISCHARGE DATE:CONSULTATION REPORT ATTENDING PHY: Frida Conte MD [facility] GLUCOSE METERon 06-15-2017 Glucose mass conc 216 mg/dL High 85-125 [facility] HP.IMS.ADMon 06-15-2017 Admission-H&P [facility].IMS.ADM [facility] Patient Name: CARMEN HARVEY [facility] Date of : [address] [address] Unit Number: [id number] Number: [id number] Patient Status: ADM INAttending Doctor: Frida Conte MDService Date: 06/15/171903GRBRAYDON WHITLOCK 06/15/171903:History of Present IllnessChief Complaint/Present Illness:chest painHistory of Present IllnessThis is a pleasant 71 year old female, patient of Dr. Plasencia of cardiology, withhistory of afib, CAD, on coumadin who presented initially to [facility] withcomplaints of chest pain yesterday.states she was at work sitting at her desk when shenoted midsternal chest pressure 8 out of 10, also felt fluttering in her chest, she deniedany diaphoresis or nausea with this. She denied any shortness of breath, she does admitshe's had increased fatigue. She states when she went home her heart rate stabilized. [facility]was [facility] and [facility] and had a stress test which was found to bepositive. She was then transferred to [facility] for a heart catheter. We have [...] renal failureSocial HxShe is , works in [employer], former smoker but quit in 1986. Prior [...] some anxietyPhysical ExamVital SignsVital Signs (Last)ResultDate TimePulse Xe3951/ 1907B/P131/7210/ 1359Cxay67.410/ 1713Vwjez7435/ 7944Ewqp5594 1907Previous lab work from hospital was reviewed, [...] QHS, Ref 0 (Reported)Entered as Reported by JANYN VAIL on 07/26/14254Last Action: Held on 06/16/17104 [...] 0403GBraydon parikh CNVerified/Reviewed by 06/15/17 1914 Normal [facility] PTon 06-15-2017 INR Coag RelTime (PPP) 1.8 {INR} High 0.9-1.1 [facility] Comment on above: Order Comment: Carolynn s: M Result Comment: Mario mmended PT INR therapeutic range for usp andprophylactic therapy is 2.0 - 3.0. For heart valve andshunt patients the range is 2.5 - 3.5. Performed By: #### L 300.65799 ####[facility] [id number] [place], [place] [address]Xs# [phone] PTS 18.5 SECONDS High 9.4-12.0 [facility] Comment on above: Order Comment: Carolynn s: M Performed By: #### L 300.60803 ####[facility] [id number] [place] [address]Cz# [phone] TROPONIN Ion 06-15-2017 Troponin I.cardiac mass conc 0.015 ng/mL Normal 0.000-0.045 [facility] Comment on above: Order Comment: Carolynn s: M Performed By: #### L 550.49858 ####[facility] [id number] [place], [place] [address]Ee# [phone] Vital Signs Date Time Vital Sign Value Performing Clinician Key wagner 05-05-2025 13:48-0400 Body height 149.[address] Doroteo Lobo MD Work Phone: [facility] 05-05-2025 13:48-0400 Body mass index (BMI) [Ratio] 34.9 kg/m2 Dr. Doroteo Lobo MD Work Phone: [facility] 05-05-2025 13:48-0400 Body temperature 97.9 [degF] Dr. Doroteo Lobo MD Work Phone: [facility] 05-05-2025 13:48-0400 Body weight 78.[address] Doroteo Lobo MD Work Phone: [facility] 05-05-2025 13:48-0400 Diastolic blood pressure 73 mm[Hg] Dr. Doroteo Lobo MD Work Phone: [facility] 05-05-2025 13:48-0400 Heart rate 78 /min Dr. Doroteo Lobo MD Work Phone: [facility] 05-05-2025 13:48-0400 Respiratory rate 18 /min Dr. Doroteo Lobo MD Work Phone: [facility] 05-05-2025 13:48-0400 SaO2% (BldA) [Mass fraction] 98 % Dr. Doroteo Lobo MD Work Phone: [facility] 05-05-2025 13:48-0400 Systolic blood pressure 125 mm[Hg] Dr. Doroteo Lobo MD Work Phone: [facility] 06-23-2023 11:34-0400 Body temperature 97.3 [degF] Dr. Ann Marie Castano Work Phone: [facility] 06-23-2023 11:34-0400 Diastolic blood pressure 54 mm[Hg] Dr. Ann Marie Castano Work Phone: [facility] 06-23-2023 11:34-0400 Heart rate 72 /min Dr. Ann Marie Castano Work Phone: [facility] 06-23-2023 11:34-0400 Respiratory rate 16 /min Dr. Ann Marie Castano Work Phone: [facility] 06-23-2023 11:34-0400 SaO2% (BldA) [Mass fraction] 96 % Dr. Ann Marie Castano Work Phone: [facility] 06-23-2023 11:34-0400 Systolic blood pressure 106 mm[Hg] Dr. Ann Marie Castano Work Phone: [facility] 06-23-2023 08:36-0400 Body height 149.[address] Ann Marie Castano Work Phone: [facility] 06-23-2023 08:36-0400 Body mass index (BMI) [Ratio] 36.9 kg/m2 Dr. Ann Marie Castano Work Phone: [facility] 06-23-2023 08:36-0400 Body weight [address] Ann Marie Castano Work Phone: [facility] 04-25-2023 14:31-0400 Body mass index (BMI) [Ratio] 38.4 kg/m2 Dr. Ann Marie Castano Work Phone: [facility] 04-25-2023 14:31-0400 Body weight 86.[address] Ann Marie Castano Work Phone: [facility] 04-25-2023 14:31-0400 Diastolic blood pressure 74 mm[Hg] Dr. Ann Marie Castano Work Phone: [facility] 04-25-2023 14:31-0400 Heart rate 85 /min Dr. Ann Marie Castano Work Phone: [facility] 04-25-2023 14:31-0400 Respiratory rate 16 /min Dr. Ann Marie Castano Work Phone: [facility] 04-25-2023 14:31-0400 SaO2% (BldA) [Mass fraction] 95 % Dr. Ann Marie Castano Work Phone: [facility] 04-25-2023 14:31-0400 Systolic blood pressure 131 mm[Hg] Dr. Ann Marie Castano Work Phone: [facility] Encounters Encounter Date Encounter Type Care Provider Facility Start: 06-05-2025 ambulatory Jose Friend Facility :[facility] Start: 06-02-2025 End: 06-02-[address] [facility] Start: 05-05-2025 End: 05-05-2025 Patient encounter procedure Monica CORONADOC -[facility] Work Phone: Start: 05-05-2025 End: 05-05-[address] Doroteo Lobo MD Work Phone: -[facility] Start: 04-09-2025 End: 04-09-2025 Emergency department patient visit FACUNDO TURNER SOL[facility] Start: 04-07-2025 End: 04-07-2025 Emergency department patient visit SARIKA BENITEZ [facility] Start: 02-19-2025 End: 02-19-2025 ambulatory ANN MARIE TURNER [facility] Start: 01-15-2025 End: 01-15-2025 [facility] Start: 01-15-2025 End: 01-15-2025 ambulatory ANN MARIE TURNER [facility] Start: 12-08-2024 End: 12-09-2024 Evaluation and management of inpatient TIRSO BRANCH [facility] Start: 11-14-2024 ambulatory ANN MARIE CASTANO [facility] Start: 08-22-2024 End: 08-22-2024 ambulatory RALEIGH JHAVERI [facility] Start: 06-13-2024 End: 06-13-2024 ambulatory ANN MARIE CASTANO [facility] Start: 04-02-2024 Documentation procedure Mammography Coordinator [facility] Start: 04-02-2024 Letter encounter Mammography Coordinator [facility] Start: 04-01-2024 End: 04-01-2024 Subsequent hospital visit by physician Screen Mammo [facility] Start: 06-23-2023 Non-patient / Non-visit Dr. Ann Marie Castano Work Phone: [facility] Start: 06-23-2023 End: 06-23-2023 Admission to same day surgery center Dr. Ann Marie Castano Work Phone: [facility] Work Phone: Start: 06-23-2023 End: 06-23-[address] Ann Marie Castano Work Phone: [facility] Work Phone: Start: 04-25-2023 End: 04-25-[address] Ann Marie Castano Work Phone: [facility] Work Phone: Start: 03-03-2023 Documentation procedure Mammography Coordinator [facility] Start: 03-03-2023 Letter encounter Mammography Coordinator [facility] Start: 03-02-2023 End: 03-02-2023 Subsequent hospital visit by physician Screen Mammo [facility] Start: 01-08-2022 Documentation procedure Mammography Coordinator [facility] Start: 01-08-2022 Letter encounter Mammography Coordinator [facility] Start: 01-07-2022 End: 01-07-2022 Subsequent hospital visit by physician Screen Mammo [facility] Start: 06-15-2017 End: 06-17-2017 Evaluation and management of inpatient Ann Marie Castano Facility:[facility] Procedures Date Procedure Procedure Detail Performing Clinician Start: 04-09-2025 Urinalysis RALEIGH JHAVERI Comment on above: Result Comment: URINALYSIS Performed By: #### 2 [id number] #### [facility],[address] [place] [id number] Start: 04-07-2025 Urinalysis RALEIGH ALICEAVAIBHAVROBINCheng Comment on above: Result Comment: CORRECTED REPORT URINALYSIS Performed By: #### 2 [id number] #### [facility],[address] [place] [id number] Start: 06-23-[address] Ann Marie Castano [...] Author Start: 01-20-2026 DIABETES SCREEN DIABETES SCREEN [facility] Start: 01-20-2026 Diabetes Screening Diabetes Screening [facility] Start: 07-03-2025 Colonoscopy COLONOSCOPY [facility] Start: 07-03-2025 COLORECTAL CANCER SCREENING COLORECTAL CANCER SCREENING [facility] Start: 11-09-2024 DIABETES SCREEN DIABETES SCREEN [facility] Start: 04-21-2024 Influenza vaccination Influenza Vaccine (#1) [facility] Start: 08-21-2023 Advance Directive Discussion Advance Directive Discussion [facility] Start: 06-23-2023 Patient discharge [facility] Start: 04-21-2023 Covid-19 Vaccine () Covid-19 Vaccine ( season) [facility] Start: 04-21-2023 Influenza vaccination [facility] Start: 08-21-2022 ADVANCE DIRECTIVE DISCUSSION ADVANCE DIRECTIVE DISCUSSION [facility] Start: 08-21-2022 DEPRESSION ASSESSMENT DEPRESSION ASSESSMENT [facility] Start: 12-09-2021 COVID-19 VACCINE (4 - Booster for Moderna series) COVID-19 VACCINE (4 - Booster for Moderna series) [facility] Start: 10-05-2021 COVID-19 VACCINE (4 - Moderna series) COVID-19 VACCINE (4 - Moderna series) [facility] Start: 08-21-2021 ADVANCE DIRECTIVE DISCUSSION ADVANCE DIRECTIVE DISCUSSION [facility] Start: 02-28-2017 Pneumococcal Vaccine: 65+ (2 of 2 - PPSV23 or PCV20) Pneumococcal Vaccine: 65+ (2 of 2 - PPSV23 or PCV20) [facility] Start: 2011 BONE DENSITY BONE DENSITY [facility] Start: 2011 Bone Density Screening Bone Density Screening [facility] Start: 2011 Pneumococcal Vaccine: 65+ (1 - PCV) Pneumococcal Vaccine: 65+ (1 - PCV) [facility] Start: 2011 PNEUMOCOCCAL: 65+ (1 - PCV) PNEUMOCOCCAL: 65+ (1 - PCV) [facility] Start: 2011 PNEUMOVAX AGE 65 AND OVER WITH 5YR LOOKBACK (#1) PNEUMOVAX AGE 65 AND OVER WITH 5YR LOOKBACK (#1) [facility] Start: 2011 Screening for osteoporosis Bone Density Screening [facility] Start: 2006 RSV Vaccine (1 - 1-dose 60+ series) RSV Vaccine (1 - 1-dose 60+ series) [facility] Start: 1996 SHINGRIX VACCINE (1 of 2) SHINGRIX VACCINE (1 of 2) [facility] Start: 1991 COLOGUARD (FIT-DNA) COLOGUARD (FIT-DNA) [facility] Start: [address] COLONOGRAPHY [facility] Start: 1991 FECAL OCCULT BLOOD FECAL OCCULT BLOOD [facility] Start: 1991 LIPID SCREEN LIPID SCREEN [facility] Start: 1991 SIGMOIDOSCOPY SIGMOIDOSCOPY [facility] Start: 1965 Urine microalbumin profile [facility] Start: 1964 Anxiety Screening Anxiety Screening [facility] Start: 1964 Depression Screening Depression Screening [facility] Start: 1964 HEPATITIS C SCREENING HEPATITIS C SCREENING [facility] Start: 1964 Hepatitis C screening Hepatitis C Screening [facility] Start: 1958 Adult depression screening assessment DEPRESSION SCREENING [facility] Patient referral [facility] Work Phone: Prothrombin time [facility] Immunizations Immunization Date Immunization Notes Care Provider Fa cili 05-29-2023 influenza virus vacc ine, unspecified formulation Screen [facility] 07-04-2022 influenza virus vacc ine, unspecified formulation Screen [facility] Payers Date Payer Category Payer Self-pay [id number] 2025 Medicare [id number] 2025 Unknown [id number] 2019 Unknown MMO MMO MEDICARE SUPPLEMENT [id number] 2019-Present [phone] [address] [place] [address] Indemnity [id number] 2019 Unknown MMO MMO MEDICARE SUPPLEMENT [id number] 2019-Present [phone] [address] [place] [address] Indemnity [id number] 2012 Medicare [id number] 2011 Medicare MEDICARE MEDICAR E A AND B [id number] 2011-Present [phone] [place] [address] Medicare [id number] 2011 Medicare MEDICARE MEDICAR E A AND B [id number] 2011-Present [phone] [place] [address] Medicare [id number] 1946 Unknown [id number] 1945 Unknown [id number] 1946 Unknown [id number] [id number] 1946 Unknown [id number] [id number] 1946 Unknown [id number] [id number] 1946 Unknown [id number] [id number] 1946 Unknown [id number] [id number] 1946 Unknown [id number] [id number] 1946 Unknown [id number] [id number] 1946 Unknown [id number] [id number] 1946 Unknown [id number] [id number] Unknown [id number] Unknown [id number] Social History Date Type Detail Facility Start: 04-11-2012 End: 05-05-2025 Tobacco smoking status NHIS Ex-smoker [facility] End: 08-18-1985 History of tobacco use Current smoker [facility] End: 08-18-1985 History of tobacco use Cigarette Smoker [facility] Start: 07-03-2015 Alcohol intake 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) [facility] Start: 1945 Sex Assigned At Not on file C [facility] Start: 12-28-2021 End: 01-07-2022 Exposure to SARS-CoV-2 (event) Not sure [facility] Start: 04-11-2012 End: 01-07-2022 Cigarettes smoked current (pack per day) - Reported 0.5 [facility] Start: 01-07-2022 Area Deprivation Index [facility] National Score (1-10 0), lower number is lower risk 73 [facility] Start: 06-20-2023 Tobacco smoking stat us NYIS Unknown if ever smoked [facility] Start: 04-16-[address] [facility] Start: 04-16-2018 Spouse/ Signif icant Other [facility] Start: 1945 Sex Assigned At Female W [facility] Medical Equipment Procedure Code Equipment Code Equipment Origin al Text Equipment Identifier Dates [id number], [id number] FDA Start: 01-28-2008 Comment on above: asscu-check kalie te st strips four times a day BD insulin syringe u ltrafine misc 30G x 1/2 1ML 1 two times a day Goals Date Patient Goal Desired Activity /State Mental Status Date Assessment Result Facility 06-23-2023 Cognitive function Level Of Cons ciousness Appropriate;Drowsy [facility] Work Phone: 06-23-2023 Cognitive function Patient Orien tation Person;Place;Time [facility] Work Phone: Clinical Notes 01-07-2022 to 05-05-2025 Note Date & Type Note Facility 05-05-2025 Evaluation note Diagnosis Onset Date Resolution Epigastric pain acute May 05, 2025 1:26pm Nausea acute April 1:26pm RUQ pain acute April 1:26pm Weight loss acute April 1:26pm [facility] Work Phone: [phone]) [phone] Note* Letter - Jackie, Mammography - 04/02/2024 11:01 AM EDT April 02, 2024 PID: [id number] Carmen Harvey [address] [place] [address] Dear Ms. Harvey, We are pleased to [...] report will be kept on file at [facility] as part of your permanent medical record and are available for your continuing care. Thank you for allowing us to help in meeting your health care needs. Sincerely, Dr. Garcia Interpreting Radiologist [facility] (Normal over 40) [facility]08-13-2024 Miscellaneous Notes* Letter - Coordinator, Mammography - 04/02/2024 11:01 AM EDT April 02, 2024 PID: [id number] Carmen Harvey [address] [place] [address] Dear Ms. Harvey, We are pleased to [...] report will be kept on file at [facility] as part of your permanent medical record and are available for your continuing care. Thank you for allowing us to help in meeting your health care needs. Sincerely, Dr. 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: No RADIOLOGY DEPARTMENT: Mammography PERIPHERAL IV DATA: Not applicable SIGNED BY: Sinan Hernandez April 01, 2024 2:07 PM documented in this encounterReg[facility]11-03-2023 Procedure [facility]11-03-2023 Procedure [facility]11-03-2023 History and physical note Author Carlos Maravilla [facility] June 23, 2023 8:52am Note Date/Time June 23, 2023 8 :52am [facility] Medical Records Department [address] [place] [address] History & Physical Exam 06/23/23 0852 MR#: [id number] Acct: [id number] Name: CARMEN HARVEY Rep #:[id number] : 1945 77 From: Carlos Maravilla MD PCP: Dr. Ann Marie Castano MD Status:[facility] Location: [place] [address] History and Physical Date of Admission: 06/23/23 Visit Reasons: Per 2018 OV DUE FOR C-SCOPE 02/2023 Chief Complaint: COLONOSCOPY Allergies codeine Allergy (Unknown, Verified 04/25/23 14:32) Unknownhydrocodone [From [place]] Allergy (Unknown, Verified 04/25/23 14:32) UnknownIodinated Contrast [...] mg PO DAILY 04/25/23 [History Confirmed 04/25/23] [facility] Medical History (Updated 04/25/23 @ 15:08 by [...] that remotely she had been seen by electronic development technician Dr. Alexander Bell. For period of time [...] General: cooperative, comfortable and no acute distress [facility] Head: normal to inspection Eyes General: appearance [...] Castano MD; Dr. Carlos Maravilla MD~ Signed [facility] Work Phone: 1(858) 268-767411-03-2023 Procedure [facility] 06-23-2023 Procedure [facility]07-14-2023 Miscellaneous Notes* Letter - CoordinatorRosibel - 03/03/2023 8:48 AM EDT March 06, 2023 PID: [id number] Carmen Harvey [address] [address] Dear Ms. Harvey, We are pleased to [...] report will be kept on file at [facility] as part of your permanent medical record and are available for your continuing care. Thank you for allowing us to help in meeting your health care needs. Sincerely, Dr. Yusuf Interpreting Radiologist [facility] (Normal over 40) documented in this encounterReg[facility]05-21-2022 Miscellaneous Notes* Letter - Mammography Coordinator - 01/08/2022 9:36 AM EDT January 08, 2022 PID: [id number] Carmen Harvey [address] [address] Dear Ms. Harvey, We are pleased to [...] report will be kept on file at [facility] as part of your permanent medical record and are available for your continuing care. Thank you for allowing us to help in meeting your health care needs. Sincerely, Dr. Nunn Interpreting Radiologist [facility] (Normal over 40) documented in this encounterReg[facility]05-20-2022 History of Present illness Narrative* RT Aimee(R) [...] 07, 2022 2:35 PM documented in this encounterReg[facility] EastEvaluation note* Diagnosis Onset Date Resolution Status Acid reflux acute Personal history of colonic polyps acute [facility] Work Phone: Reason for referral (narrative)No reason for referral information availableSt[facility] Work Phone: Summary Purpose Family History [...] Will No June 20 12:58pm Power of Manufacturer Representative No June 20, 2023 12:58pm Chief Complaint [...] section and content) DATE CREATED AUTHOR 02/13/2018 [facility] [place] DATE CREATED AUTHOR AUTHOR'S ORGANIZ ATION 06/12/2020 [facility] ([place]) DATE CREATED AUTHOR AUTHOR'S ORGANIZ ATION 05/13/2021 [facility] DATE CREATED AUTHOR AUTHOR'S ORGANIZ ATION 06/04/2025 [facility] DATE CREATED AUTHOR AUTHOR'S ORGANIZ ATION 06/05/2025 [facility] DATE CREATED AUTHOR AUTHOR'S ORGANIZ ATION 06/05/2025 [facility] Source Comments (unrecognize d section and content) In the event this informatio n is protected by the Federal Confidentiality of Alcohol and Drug Abuse Patient Records regulations: The Federal rules restrict any use of the information to criminally investigate or prosecute any alcohol or drug abuse patient.[facility] the event this information is protected by the Federal Confidentiality of Alcohol and Drug Abuse Patient Records regulations: The Federal rules restrict any use of the information to criminally investigate or prosecute any alcohol or drug abuse patient.[facility] the event this information is protected by the Federal Confidentiality of Alcohol and Drug Abuse Patient Records regulations: The Federal rules restrict any use of the information to criminally investigate or prosecute any alcohol or drug abuse patient.[facility] East[facility] the event this information is protected by the Federal Confidentiality of Alcohol and Drug Abuse Patient Records regulations: The Federal rules restrict any use of the information to criminally investigate or prosecute any alcohol or drug abuse patient.[facility] East[facility] the event this information is protected by the Federal Confidentiality of Alcohol and Drug Abuse Patient Records regulations: The Federal rules restrict any use of the information to criminally investigate or prosecute any alcohol or drug abuse patient.[facility] the event this information is protected by the Federal Confidentiality of Alcohol and Drug Abuse Patient Records regulations: The Federal rules restrict any use of the information to criminally investigate or prosecute any alcohol or drug abuse patient.[facility] Teams (unrecognized sec tion and content) Arts Administrator Or Manager Relationship Specialty Start Date End Date Ann Marie Castano MD [address] [place], [place] [id number] PCP - General 10/29/03 Arts Administrator Or Manager Relationship Specialty Start Date End Date Ann Marie Castano MD [address] [place], [place] [id number] PCP - General 10/29/03 Arts Administrator Or Manager Relationship Specialty Start Date End Date Ann Marie Castano MD [address] [place], [place] [id number] PCP - General 10/29/03 Team Status: Active [...] Dr. Carlos Maravilla MD Attending Provider Active Arts Administrator Or Manager Relationship Specialty Start Date End Date Ann Marie Castano MD [address] [place], [place] [id number] PCP - General 10/29/03 Arts Administrator Or Manager Relationship Specialty Start Date End Date Ann Marie Castano MD [address] [place] [address] PCP - General 10/29/03 Team Status: Active [...] BE BASED ON THE PRIMARY CLINICAL RECORDS. [facility]. provides no warranty or guarantee of the accuracy or completeness of information in this document.
--- NOTE | 2025-06-05 06:41 | PCM.HP.STD ---
HPI - General General Date of Admission: 06/25/25 Date of Service: 06/05/25 Chief Complaint: Abdominal pain HPI Narrative CARMEN HARVEY, is a 79 F who presents [ HPI Chief Complaint: pain Details: EGD 06/23/2023 ([facility]) negative Wynn's, mild gastritis, negatige H. pylori - Small hiatal hernia. - Z-line variable, 35 cm from the incisors. Biopsied. - Normal middle third of esophagus. Biopsied. - Chronic gastritis. Active bile reflux with stagnant bile noted biopsied. - Multiple gastric polyps. Resected and retrieved. - Normal examined duodenum. - Use sucralfate tablets 1 gram PO BID. COLON 06/23/2023 ([facility]) - random biopsies negative - Preparation of the colon was fair. - Erythematous mucosa in the cecum. Biopsied. - Biopsies were taken with a cold forceps from the entire colon for evaluation of microscopic colitis. No overt findings that would correlate with diarrhea. Cecal and random colonic biopsies pending. - Repeat colonoscopy is not recommended due to current age (66 years or older) for screening purposes. - reports a history of IVP allergy but does well with premedication - pain started 1 month ago and was seen ER 2x on 03/31/2025 and 04/07/2025 [facility] - reports she was taking Carafate and Oxycodone - reports pain lasts about 1 week - did not take Oxy very long due to causing constipation - reports she can only have Carafate for a short time due to causing diarrhea - partial colectomy 7 years ago due to diverticulitis - burning, aching, once it comes the pain is constant and began again Monday evening, woke her at HS - today pain is mildly improved just a nagging - reports pain can be aggravated by PO intake - not sure what brought on the pain this Monday - denies any emesis - she is taking Omeprazole for HB and Carafate at HS - with this her HB is controlled - weight loss of 36lbs in the past 18 months, reports this was unintentional - she is diabetic - she has a BM daily, reports this is not always a good BM - post colectomy she took Cholestyramine for control of diarrhea - due to CKD stage3 she started Jardiance and went off the cholestyramine - she is drinking >60 ounces of water daily - reports chronic back pain - she is taking Ondansetron for nausea rarely - having a BM daily - denies any change in pain with a BM CTA with IV contrast only - she was give Oxy at first ER visit on 04/07/2025 The patient is a 79-year-old female presenting with abdominal pain and gastritis. She reports that the abdominal pain began approximately one month ago, for which she sought medical evaluation at the ER on two occasions, 04/07 and 04/09. During the ER visits, she was diagnosed with gastritis. Notably, she has an allergy to CT scan contrast dye; the first scan was performed without contrast (IV or OR), while the second was pre-medicated due to this allergy. She describes the abdominal pain as constant, characteristically burning and aching, localized to the right side of her abdomen and epigastric region, with episodes lasting up to a week. The pain intensity has varied from excruciating initially to a nagging discomfort currently. The onset occurred unexpectedly and was not necessarily associated with food intake in recent episodes, although historically, certain foods aggravated the symptoms. Her treatment regimen includes Carafate, which she limits due to diarrhea concerns, and a brief period of Oxycodone with acetaminophen, which she discontinued due to constipation. She is also compliant with omeprazole daily for GERD management. The patient admits to recent weight loss, unintentionally shedding 36 pounds over the past one and a half years. She has a previous history of diverticulitis, for which she underwent a partial colectomy seven years ago. Additionally, she has been diagnosed with stage 3 chronic kidney disease, recently started on half-dose Jardiance, which has contributed to mild weight loss post-initiation. There is no significant family history of gastrointestinal cancers, though her maternal grandfather had colon cancer. ] [facility] Medical History Insulin dependent diabetes mellitus History of renal disease Back pain Difficulty swallowing Heartburn Gastric reflux History of pain when walking History of atrial fibrillation Wears glasses Post-menopausal History of steroid therapy Fatty liver High cholesterol Scoliosis Dietary restriction History of hiatal hernia History of Clostridium difficile infection History of diverticulitis Diverticulosis Former smoker CPAP (continuous positive airway pressure) dependence Hypertension Cardiology follow-up encounter History of echocardiogram History of stress test Diverticulitis Hx of Clostridium difficile infection Hemorrhoids Acid reflux Diarrhea Nausea Asthma Sleep apnea A-fib Heart disease Heart murmur Arthritis Back problem Diabetes Fatigue Home Medications ?Medication ?Instructions ?Recorded ?Last Taken ?Type ascorbic acid (vitamin C) 250 mg 500 mg PO QDAY supplement 12/22/17 Unknown History tablet atorvastatin 40 mg tablet 40 mg PO QDAY cholesterol 12/22/17 Unknown History calcium 600 mg (as 1,000 mg PO DAILY supplement 12/22/17 Unknown History carbonate)-vitamin D3 12.5 mcg (500 unit) capsule (Calcium with Vit D3) folic acid 400 mcg tablet 0.4 mg PO QDAY supplement 12/22/17 Unknown History insulin NPH human semi-syn 100 30 unit subcut BID dm 12/22/17 Unknown History unit/mL subcutaneous cartridge insulin regular human 100 unit/mL 5 unit subcut PRN PRN dm 12/22/17 Unknown History injection solution (Novolin R Regular U-100 Insulin) lorazepam 0.5 mg tablet 0.5 mg PO BID-TID anxiety 12/22/17 06/23/23 07:00 History magnesium oxide 400 mg PO BID supplement 12/22/17 Unknown History montelukast 10 mg tablet 10 mg PO QPM allergies 12/22/17 Unknown History potassium chloride 20 mEq oral 20 meq PO BID supplement 12/22/17 Unknown History packet (Klor-Con) vitamin B complex (B 1 tab PO QDAY supplement 12/22/17 Unknown History Complex-Vitamin B12 tablet) metoprolol succinate 50 mg 50 mg PO DAILY 06/20/23 06/23/23 07:00 History tablet,extended release 24 hr albuterol sulfate 90 mcg/actuation 2 puff inhalation Q6H PRN 05/05/25 Unknown History aerosol inhaler (Ventolin HFA) shortness of breath or wheezing apixaban 5 mg tablet (Eliquis) 5 mg PO BID 05/05/25 05/29/25 History biotin 10,000 mcg chewable tablet 7,500 mcg PO DAILY 05/05/25 Unknown History (Hair, Skin and Nails (biotin)) empagliflozin 10 mg tablet 5 mg PO QAM 05/05/25 06/01/25 History (Jardiance) losartan 100 mg tablet 25 mg PO QDAY bp 05/05/25 Unknown History ondansetron 4 mg disintegrating 4 mg PO Q6H PRN nausea and vomiting 05/05/25 Unknown History tablet cholecalciferol (vitamin D3) 25 3,000 unit PO DAILY 06/03/25 Unknown History mcg (1,000 unit) tablet (PureVita Vitamin D3) hydrochlorothiazide 12.5 mg tablet 12.5 mg PO DAILY 06/03/25 Unknown History loratadine 10 mg tablet (Claritin) 10 mg PO DAILY PRN allergy symptoms 06/03/25 Unknown History niacin 400 mg (inositol niacinate 2 cap PO DAILY 06/03/25 Unknown History 500 mg) capsule (Niacin Flush Free) omeprazole 20 mg capsule,delayed 20 mg PO DAILY 06/03/25 Unknown History release sucralfate 1 gram tablet (Carafate) 1 g PO QHS 06/03/25 Unknown History Allergy/AdvReac Type Severity Reaction Status Date / Time codeine Allergy Unknown Unknown Verified 06/03/25 14:48 hydrocodone (From [place]) Allergy Unknown Unknown Verified 06/03/25 14:48 Iodinated Contrast Media Allergy Unknown Unknown Verified 06/03/25 14:48 (Iodinated Contrast- Oral and IV Dye) morphine Allergy Unknown Unknown Verified 06/03/25 14:48 nitrofurantoin (From Allergy Unknown Unknown Verified 06/03/25 14:48 Macrodantin) tramadol Allergy Unknown Unknown Verified 06/03/25 14:48 Family History Mother Diabetes Hypertension Heart disease Hyperlipidemia Father Heart disease Diabetes Hyperlipidemia Daughter Seizures Sister CVA (cerebral vascular accident) Surgical History History of partial colectomy History of cardiac radiofrequency ablation Hx of bilateral cataract extraction Hx of cardiac cath History of surgery on arm History of shoulder surgery Hx of breast surgery Hx of breast biopsy Hx of CABG Hx of hysterectomy Hx of cholecystectomy Hx of tubal ligation Social History Smoking Status: Former smoker second hand exposure: No alcohol intake: never substance use type: does not use caffeine: Yes what type of physical activity do you participate in: none frequency: does not exercise seatbelt use: always ROS Constitutional Constitutional: Denies fatigue, fever(s), poor appetite, weight gain or weight loss Gastrointestinal Gastrointestinal: Denies belching, bloating, change in bowel habits, change in stool character, chewing difficulty, coffee ground emesis, constipation, cramping, diarrhea, dyspepsia, dysphagia, early satiety, excessive flatus, fecal incontinence, heartburn, hematemesis, hematochezia, hemorrhoids, loose stools, melena, nausea, odynophagia, rectal bleeding, tenesmus, vomiting or weight changes Physical Exam Const alert, oriented x3, no apparent distress and healthy appearing General Appearance: cooperative GI normal to inspection, nondistended, normoactive bowel sounds, soft to palpation, non-tender and non-distended Percussion: normal to percussion Rectal Exam: deferred Assessment & Plan Assessment/Plan (1) Weight loss: (2) RUQ pain: (3) Epigastric pain: PLAN: Assessment and Plan Assessment and Plan (1) Epigastric pain: Status: Acute (2) RUQ pain: Status: Acute (3) Nausea: Status: Acute (4) Weight loss: Status: Acute Medications: New pantoprazole take once every morning on an empty stomach 40 mg PO QDAY 90 tabs 1RF Discontinued omeprazole Discontinued Reason: Order Changed 20 mg PO DAILY Plan 79-year-old female with a history of DMII, previous partial colectomy for diverticulitis, and currently presenting with RUQ and epigastric pain. The pain is persistent, burning, and located predominantly in the right abdomen and epigastric area, exacerbated by some dietary components. Her recent unintentional weight loss and reported gastrointestinal symptoms warrant further investigation. The CT scan findings suggest stool retention and possible gastritis, though UGI findings may be secondary to underdistention by the lack of oral contrast. She will trial a different PPI and proceed with EGD. Patient Instructions: Discontinue Omeprazole Start Pantoprazole 40mg once daily EGD Follow-up in the office 10-14d post EGD
[2025-06-05] MEDS: Lactated Ringers 1,000 ML 15 ML IV (07:00)
--- NOTE | 2025-06-05 07:25 | PCM.PRE.AN2 ---
ASA Classification* ASA Classification ASA Classification: 2 Assessment & Plan Anesthesia* Anesthesia Assessment Anesthesia Assessment: Discussed sedation and/or anesthesia options, risks, benefits, and alternatives with patient/parents/legal guardian/POA. Questions invited. The patient/parents/legal guardian/POA seems to understand and agrees to proceed with anesthesia plan. Reviewed the physical assessment, medical history, allergy history and patient home medications list prior to surgery/procedure/anesthetic and documented any changes. Performed airway and anesthesia risk assessments. Anesthesia Type Anesthesia Type: MAC History Source History Obtained from:: Patient and Chart Anesthesia Focused Assessment* Temperature: 97.8 F Pulse Rate: 94 Blood Pressure: 129/64 Respiratory Rate: 16 Pulse Ox: 98 Oxygen Delivery Method: Room Air Airway Assessment Mouth opens: >3 cm Mallampati Score: II Teeth Condition: Chipped/Broken and Missing Neck Range of motion (ROM): Limited ROM Labs Anesthesia Preop lab: CBC WBC, (4.4-11.0) 13.8 K/mm3 H 04/17/18, 06:23 RBC, (4.2-5.4) 3.59 M/mm3 L 04/17/18, 06:23 Hgb, (12.0-15.0) 11.5 g/dl L 04/17/18, 06:23 Hct, (37-47) 33.5 % L 04/17/18, 06:23 Plt Count, (150-450) 172 K/mm3 04/17/18, 06:23 CHEMISTRY Potassium, (3.5-5.1) 3.9 mmol/L 04/18/18, 07:35 Sodium, (136-145) 136 mmol/L 04/18/18, 07:35 BUN, (7-18) 24 mg/dL H 04/18/18, 07:35 Creatinine, (0.55-1.02) 1.00 mg/dL 04/18/18, 07:35 Glucose, (74-106) 202 mg/dL H 04/18/18, 07:35 POC Glucose, (74-106) 186 mg/dL H 06/23/23, 08:42 COAG PT, (11.7-14.9) 27.6 SECONDS H 04/09/18, 16:21 Pre-Assessment Diagnosis/Proposed Procedure Planned Operative Procedure(s): EGD, COLONOSCOPY Anesthesia History Anesthesia History - 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 When Was Last Pacemaker Check QUESTION #4 FULL TEXT: You/Your Family Experience fever (hyperthermia) with Anesthesia Last Oral Intake Last Oral intake: Last Oral Intake NPO since 04:30 06/05/25 06:57 Meds taken in AM with sips of Yes 06/05/25 06:57 water? Meds patient instructed to see med rec 06/05/25 06:57 take am of surgery PONV PONV - warp bleaching vat tender: PONV - warp bleaching vat tender Female Yes 06/03/25 15:02 HX of Motion Sickness No 06/03/25 15:02 HX of N/V After Surgery No 06/03/25 15:02 Non-Smoker Yes 06/03/25 15:02 Duration of Surgery greater No 06/03/25 15:02 than 60 minutes Number of Risk Factors 2 06/03/25 15:02 PONV Score Moderate Risk 06/03/25 15:02 Height & Weight Height & Weight: Anesthesia: Height & Weight Height 4 ft 11 in 06/05/25 06:57 Weight: 76 kg 06/05/25 06:57 Body Mass Index (BMI) 33.8 06/05/25 06:57 Respiratory Assessment Respiratory Assessment - warp bleaching vat tender: Respiratory Tract Infection Hx - warp bleaching vat tender Hx Respiratory Tract Infection No 06/03/25 15:02 STOP Sleep Apnea STOP Sleep Apnea - warp bleaching vat tender: STOP Sleep Apnea - warp bleaching vat tender Hx Hypertension Yes 06/03/25 15:02 Hx Sleep Apnea Yes 06/03/25 15:02 CPAP Yes 06/03/25 15:02 BIPAP No 06/03/25 15:02 Do you snore loudly (louder than talking or can be heard Do you often feel tired/ fatigued/ sleepy during daytime? Has anyone observed you stop breathing during sleep? STOP Results Positive 06/03/25 15:02 QUESTION #5 FULL TEXT : Do you snore loudly (louder than talking or can be heard through closed doors)? 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 Specify any problems Hx of Preganancy in last 3 No 06/03/25 15:02 Months Nurse Filling Out Transfusion VLEHMAN 06/03/25 15:02 & Questions: Date: 06/03/25 06/03/25 15:02 Time: 15:14 06/03/25 15:02 Patient unable to answer at this time (ie. confused, unrespo /Reproduction History /Reproductive History - warp bleaching vat tender: /Reproductive Hx- warp bleaching vat tender Hx Now Gestational Age (in weeks): EDC: Hx Hx Para Hx Section SAB Active Medications Active Medications: Current Medications Generic Name Dose Route Start Last Admin Trade Name Freq PRN Reason Stop Dose Admin Lactated Ringer's 1,000 mls @ 15 mls/hr 06/05/25 06:30 06/05/25 07:00 IV 15 mls/hr .Q48H TEJINDER Administration PFSH Medical History Insulin dependent diabetes mellitus History of renal disease Back pain Difficulty swallowing Heartburn Gastric reflux History of pain when walking History of atrial fibrillation Wears glasses Post-menopausal History of steroid therapy Fatty liver High cholesterol Scoliosis Dietary restriction History of hiatal hernia History of Clostridium difficile infection History of diverticulitis Diverticulosis Former smoker CPAP (continuous positive airway pressure) dependence Hypertension Cardiology follow-up encounter History of echocardiogram History of stress test Diverticulitis Hx of Clostridium difficile infection Hemorrhoids Acid reflux Diarrhea Nausea Asthma Sleep apnea A-fib Heart disease Heart murmur Arthritis Back problem Diabetes Fatigue Home Medications ?Medication ?Instructions ?Recorded ?Last Taken ?Type ascorbic acid (vitamin C) 250 mg 500 mg PO QDAY supplement 12/22/17 Unknown History tablet atorvastatin 40 mg tablet 40 mg PO QDAY cholesterol 12/22/17 Unknown History calcium 600 mg (as 1,000 mg PO DAILY supplement 12/22/17 Unknown History carbonate)-vitamin D3 12.5 mcg (500 unit) capsule (Calcium with Vit D3) folic acid 400 mcg tablet 0.4 mg PO QDAY supplement 12/22/17 Unknown History insulin NPH human semi-syn 100 30 unit subcut BID dm 12/22/17 Unknown History unit/mL subcutaneous cartridge insulin regular human 100 unit/mL 5 unit subcut PRN PRN dm 12/22/17 Unknown History injection solution (Novolin R Regular U-100 Insulin) lorazepam 0.5 mg tablet 0.5 mg PO BID-TID anxiety 12/22/17 06/23/23 07:00 History magnesium oxide 400 mg PO BID supplement 12/22/17 Unknown History montelukast 10 mg tablet 10 mg PO QPM allergies 12/22/17 Unknown History potassium chloride 20 mEq oral 20 meq PO BID supplement 12/22/17 Unknown History packet (Klor-Con) vitamin B complex (B 1 tab PO QDAY supplement 12/22/17 Unknown History Complex-Vitamin B12 tablet) metoprolol succinate 50 mg 50 mg PO DAILY 06/20/23 06/05/25 04:30 History tablet,extended release 24 hr albuterol sulfate 90 mcg/actuation 2 puff inhalation Q6H PRN 05/05/25 Unknown History aerosol inhaler (Ventolin HFA) shortness of breath or wheezing apixaban 5 mg tablet (Eliquis) 5 mg PO BID 05/05/25 05/29/25 History biotin 10,000 mcg chewable tablet 7,500 mcg PO DAILY 05/05/25 Unknown History (Hair, Skin and Nails (biotin)) empagliflozin 10 mg tablet 5 mg PO QAM 05/05/25 06/01/25 History (Jardiance) losartan 100 mg tablet 25 mg PO QDAY bp 05/05/25 06/05/25 04:30 History ondansetron 4 mg disintegrating 4 mg PO Q6H PRN nausea and vomiting 05/05/25 Unknown History tablet cholecalciferol (vitamin D3) 25 3,000 unit PO DAILY 06/03/25 Unknown History mcg (1,000 unit) tablet (PureVita Vitamin D3) hydrochlorothiazide 12.5 mg tablet 12.5 mg PO DAILY 06/03/25 Unknown History loratadine 10 mg tablet (Claritin) 10 mg PO DAILY PRN allergy symptoms 06/03/25 Unknown History niacin 400 mg (inositol niacinate 2 cap PO DAILY 06/03/25 Unknown History 500 mg) capsule (Niacin Flush Free) omeprazole 20 mg capsule,delayed 20 mg PO DAILY 06/03/25 06/05/25 04:30 History release sucralfate 1 gram tablet (Carafate) 1 g PO QHS 06/03/25 Unknown History Allergy/AdvReac Type Severity Reaction Status Date / Time codeine Allergy Unknown Unknown Verified 06/05/25 06:55 hydrocodone (From [place]) Allergy Unknown Unknown Verified 06/05/25 06:55 Iodinated Contrast Media Allergy Unknown Unknown Verified 06/05/25 06:55 (Iodinated Contrast- Oral and IV Dye) morphine Allergy Unknown Unknown Verified 06/05/25 06:55 nitrofurantoin (From Allergy Unknown Unknown Verified 06/05/25 06:55 Macrodantin) tramadol Allergy Unknown Unknown Verified 06/05/25 06:55 Family History Mother Diabetes Hypertension Heart disease Hyperlipidemia Father Heart disease Diabetes Hyperlipidemia Daughter Seizures Sister CVA (cerebral vascular accident) Surgical History History of partial colectomy History of cardiac radiofrequency ablation Hx of bilateral cataract extraction Hx of cardiac cath History of surgery on arm History of shoulder surgery Hx of breast surgery Hx of breast biopsy Hx of CABG Hx of hysterectomy Hx of cholecystectomy Hx of tubal ligation Social History Smoking Status: Former smoker second hand exposure: No alcohol intake: never substance use type: does not use caffeine: Yes what type of physical activity do you participate in: none frequency: does not exercise seatbelt use: always Review of Systems (Anesthesia) ROS Narrative System reviewed and no additional complaints, except as documented.
--- NOTE | 2025-06-05 07:25 | PCM.PRE.AN2 ---
ASA Classification* ASA Classification ASA Classification: 2 Assessment & Plan Anesthesia* Anesthesia Assessment Anesthesia Assessment: Discussed sedation and/or anesthesia options, risks, benefits, and alternatives with patient/parents/legal guardian/POA. Questions invited. The patient/parents/legal guardian/POA seems to understand and agrees to proceed with anesthesia plan. Reviewed the physical assessment, medical history, allergy history and patient home medications list prior to surgery/procedure/anesthetic and documented any changes. Performed airway and anesthesia risk assessments. Anesthesia Type Anesthesia Type: MAC History Source History Obtained from:: Patient and Chart Anesthesia Focused Assessment* Temperature: 97.8 F Pulse Rate: 94 Blood Pressure: 129/64 Respiratory Rate: 16 Pulse Ox: 98 Oxygen Delivery Method: Room Air Airway Assessment Mouth opens: >3 cm Mallampati Score: II Teeth Condition: Chipped/Broken and Missing Neck Range of motion (ROM): Limited ROM Labs Anesthesia Preop lab: CBC WBC, (4.4-11.0) 13.8 K/mm3 H 04/17/18, 06:23 RBC, (4.2-5.4) 3.59 M/mm3 L 04/17/18, 06:23 Hgb, (12.0-15.0) 11.5 g/dl L 04/17/18, 06:23 Hct, (37-47) 33.5 % L 04/17/18, 06:23 Plt Count, (150-450) 172 K/mm3 04/17/18, 06:23 CHEMISTRY Potassium, (3.5-5.1) 3.9 mmol/L 04/18/18, 07:35 Sodium, (136-145) 136 mmol/L 04/18/18, 07:35 BUN, (7-18) 24 mg/dL H 04/18/18, 07:35 Creatinine, (0.55-1.02) 1.00 mg/dL 04/18/18, 07:35 Glucose, (74-106) 202 mg/dL H 04/18/18, 07:35 POC Glucose, (74-106) 186 mg/dL H 06/23/23, 08:42 COAG PT, (11.7-14.9) 27.6 SECONDS H 04/09/18, 16:21 Pre-Assessment Diagnosis/Proposed Procedure Planned Operative Procedure(s): EGD, COLONOSCOPY Anesthesia History 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 When Was Last Pacemaker Check QUESTION #4 FULL TEXT: You/Your Family Experience fever (hyperthermia) with Anesthesia Last Oral Intake Last Oral intake: Last Oral Intake NPO since 04:30 06/05/25 06:57 Meds taken in AM with sips of Yes 06/05/25 06:57 water? Meds patient instructed to see med rec 06/05/25 06:57 take am of surgery PONV PONV - student services dean: PONV - student services dean Female Yes 06/03/25 15:02 HX of Motion Sickness No 06/03/25 15:02 HX of N/V After Surgery No 06/03/25 15:02 Non-Smoker Yes 06/03/25 15:02 Duration of Surgery greater No 06/03/25 15:02 than 60 minutes Number of Risk Factors 2 06/03/25 15:02 PONV Score Moderate Risk 06/03/25 15:02 Height & Weight Height & Weight: Anesthesia: Height & Weight Height 4 ft 11 in 06/05/25 06:57 Weight: 76 kg 06/05/25 06:57 Body Mass Index (BMI) 33.8 06/05/25 06:57 Respiratory Assessment Respiratory Assessment - student services dean: Respiratory Tract Infection Hx - student services dean Hx Respiratory Tract Infection No 06/03/25 15:02 STOP Sleep Apnea STOP Sleep Apnea - student services dean: STOP Sleep Apnea - student services dean Hx Hypertension Yes 06/03/25 15:02 Hx Sleep Apnea Yes 06/03/25 15:02 CPAP Yes 06/03/25 15:02 BIPAP No 06/03/25 15:02 Do you snore loudly (louder than talking or can be heard Do you often feel tired/ fatigued/ sleepy during daytime? Has anyone observed you stop breathing during sleep? STOP Results Positive 06/03/25 15:02 QUESTION #5 FULL TEXT : Do you snore loudly (louder than talking or can be heard through closed doors)? 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 Specify any problems Hx of Preganancy in last 3 No 06/03/25 15:02 Months Nurse Filling Out Transfusion VLEHMAN 06/03/25 15:02 & Questions: Date: 06/03/25 06/03/25 15:02 Time: 15:14 06/03/25 15:02 Patient unable to answer at this time (ie. confused, unrespo /Reproduction History /Reproductive History - student services dean: /Reproductive Hx- student services dean Hx Now Gestational Age (in weeks): EDC: Hx Hx Para Hx Section SAB Active Medications Active Medications: Current Medications Generic Name Dose Route Start Last Admin Trade Name Freq PRN Reason Stop Dose Admin Lactated Ringer's 1,000 mls @ 15 mls/hr 06/05/25 06:30 06/05/25 07:00 IV 15 mls/hr .Q48H TEJINDER Administration PFSH Medical History Insulin dependent diabetes mellitus History of renal disease Back pain Difficulty swallowing Heartburn Gastric reflux History of pain when walking History of atrial fibrillation Wears glasses Post-menopausal History of steroid therapy Fatty liver High cholesterol Scoliosis Dietary restriction History of hiatal hernia History of Clostridium difficile infection History of diverticulitis Diverticulosis Former smoker CPAP (continuous positive airway pressure) dependence Hypertension Cardiology follow-up encounter History of echocardiogram History of stress test Diverticulitis Hx of Clostridium difficile infection Hemorrhoids Acid reflux Diarrhea Nausea Asthma Sleep apnea A-fib Heart disease Heart murmur Arthritis Back problem Diabetes Fatigue Home Medications ?Medication ?Instructions ?Recorded ?Last Taken ?Type ascorbic acid (vitamin C) 250 mg 500 mg PO QDAY supplement 12/22/17 Unknown History tablet atorvastatin 40 mg tablet 40 mg PO QDAY cholesterol 12/22/17 Unknown History calcium 600 mg (as 1,000 mg PO DAILY supplement 12/22/17 Unknown History carbonate)-vitamin D3 12.5 mcg (500 unit) capsule (Calcium with Vit D3) folic acid 400 mcg tablet 0.4 mg PO QDAY supplement 12/22/17 Unknown History insulin NPH human semi-syn 100 30 unit subcut BID dm 12/22/17 Unknown History unit/mL subcutaneous cartridge insulin regular human 100 unit/mL 5 unit subcut PRN PRN dm 12/22/17 Unknown History injection solution (Novolin R Regular U-100 Insulin) lorazepam 0.5 mg tablet 0.5 mg PO BID-TID anxiety 12/22/17 06/23/23 07:00 History magnesium oxide 400 mg PO BID supplement 12/22/17 Unknown History montelukast 10 mg tablet 10 mg PO QPM allergies 12/22/17 Unknown History potassium chloride 20 mEq oral 20 meq PO BID supplement 12/22/17 Unknown History packet (Klor-Con) vitamin B complex (B 1 tab PO QDAY supplement 12/22/17 Unknown History Complex-Vitamin B12 tablet) metoprolol succinate 50 mg 50 mg PO DAILY 06/20/23 06/05/25 04:30 History tablet,extended release 24 hr albuterol sulfate 90 mcg/actuation 2 puff inhalation Q6H PRN 05/05/25 Unknown History aerosol inhaler (Ventolin HFA) shortness of breath or wheezing apixaban 5 mg tablet (Eliquis) 5 mg PO BID 05/05/25 05/29/25 History biotin 10,000 mcg chewable tablet 7,500 mcg PO DAILY 05/05/25 Unknown History (Hair, Skin and Nails (biotin)) empagliflozin 10 mg tablet 5 mg PO QAM 05/05/25 06/01/25 History (Jardiance) losartan 100 mg tablet 25 mg PO QDAY bp 05/05/25 06/05/25 04:30 History ondansetron 4 mg disintegrating 4 mg PO Q6H PRN nausea and vomiting 05/05/25 Unknown History tablet cholecalciferol (vitamin D3) 25 3,000 unit PO DAILY 06/03/25 Unknown History mcg (1,000 unit) tablet (PureVita Vitamin D3) hydrochlorothiazide 12.5 mg tablet 12.5 mg PO DAILY 06/03/25 Unknown History loratadine 10 mg tablet (Claritin) 10 mg PO DAILY PRN allergy symptoms 06/03/25 Unknown History niacin 400 mg (inositol niacinate 2 cap PO DAILY 06/03/25 Unknown History 500 mg) capsule (Niacin Flush Free) omeprazole 20 mg capsule,delayed 20 mg PO DAILY 06/03/25 06/05/25 04:30 History release sucralfate 1 gram tablet (Carafate) 1 g PO QHS 06/03/25 Unknown History Allergy/AdvReac Type Severity Reaction Status Date / Time codeine Allergy Unknown Unknown Verified 06/05/25 06:55 hydrocodone (From [place]) Allergy Unknown Unknown Verified 06/05/25 06:55 Iodinated Contrast Media Allergy Unknown Unknown Verified 06/05/25 06:55 (Iodinated Contrast- Oral and IV Dye) morphine Allergy Unknown Unknown Verified 06/05/25 06:55 nitrofurantoin (From Allergy Unknown Unknown Verified 06/05/25 06:55 Macrodantin) tramadol Allergy Unknown Unknown Verified 06/05/25 06:55 Family History Mother Diabetes Hypertension Heart disease Hyperlipidemia Father Heart disease Diabetes Hyperlipidemia Daughter Seizures Sister CVA (cerebral vascular accident) Surgical History History of partial colectomy History of cardiac radiofrequency ablation Hx of bilateral cataract extraction Hx of cardiac cath History of surgery on arm History of shoulder surgery Hx of breast surgery Hx of breast biopsy Hx of CABG Hx of hysterectomy Hx of cholecystectomy Hx of tubal ligation Social History Smoking Status: Former smoker second hand exposure: No alcohol intake: never substance use type: does not use caffeine: Yes what type of physical activity do you participate in: none frequency: does not exercise seatbelt use: always Review of Systems (Anesthesia) ROS Narrative System reviewed and no additional complaints, except as documented.
--- NOTE | 2025-06-05 07:30 | COLBX_PTH ---
PATIENT: CARMEN HARVEY LOC: EN U#:[id number] AGE/SX: 79/F ROOM: RE06/05/[address]: Dr. Jose Gordillo DO : 1945 BED: DIS: 06/05/2025 SPEC #: [id number] RECD: 06/05/25 09:39 STATUS: RUTH REAsia #: [id number] PEE: 06/05/25 07:[address]: Jose Gordillo DEPT: SURGICAL PATHOLOGY RECD BY: Hang Colon ENTERED: 06/05/25 10:46 SP TYPE: COLON BX OTHR DR: Sameera Shoemaker, MITCH Tissues: A - Gastric mucous membrane B - Ileum, NOS C - COLON BIOPSY D - Sigmoid colon biopsy E - Rectum, NOS Procedures: Immunohistochemical Stains Surgery Specimen Level IV HEADER OPERATION: Colonoscopy with biopsy and polypectomy, EGD, biopsy PRE-OP DIAGNOSIS: Epigastric pain, right upper quadrant pain, nausea, weight loss TISSUE SUBMITTED: A- Gastric antrum biopsy, B- Terminal ileum biopsy, C- Random colon biopsy, D- Sigmoid polyps, E- Rectal polyp biopsy MICROSCOPIC DIAGNOSIS A. Gastric antrum, biopsy: * Antral/oxyntic mucosa with chronic focal active inflammation and reactive changes * No morphologic evidence of Helicobacter pylori organisms is identified on H&E or immunostained sections B. Terminal ileum, biopsy: * Small bowel mucosa with no pathologic change C. Colon, random biopsy: * Colonic mucosa with no pathologic change D. Sigmoid colon, polyp, biopsy: * Tubular adenoma E. Rectum, polyp, biopsy: * Hyperplastic polyp MICROSCOPIC DESCRIPTION Slides are reviewed. All matched controls reacted appropriately. These tests were developed and their performance characteristics determined by [facility]. They may not have been cleared or approved by the U.S. Food and Drug Administration. The FDA has determined that such clearance or approval is not necessary. The above immunohistochemical markers are viewed by the Pathologist. GROSS DESCRIPTION A. Received in fixative is one container labeled with the patient's name and designated Gastric antrum biopsy. The specimen consists of two irregular fragments of abdi tissue, each measuring 0.6 cm. The specimen is totally submitted in one cassette. B. Received in fixative is one container labeled with the patient's name and designated Terminal ileum biopsy. The specimen consists of two irregular fragments of abdi tissue that measure 0.4 and 0.5 cm. The specimen is totally submitted in one cassette. C. Received in fixative is one container labeled with the patient's name and designated Random colon biopsy. The specimen consists of multiple irregular fragments of abdi tissue that in aggregate measure 1.3 x 0.4 x 0.1 cm. The specimen is totally submitted in one cassette. D. Received in fixative is one container labeled with the patient's name and designated Sigmoid polyps. The specimen consists of multiple abdi to red tissue fragments, <0.1 cm to 0.3 cm and a 0.8 x 0.5 x 0.2 cm pink-red and granular, sessile polyp. The resection margin of the polyp is inked black and it is trisected. Entirely submitted in 1 cassette. Smallest fragments unlikely to survive processing. E. Received in fixative is one container labeled with the patient's name and designated Rectal polyp biopsy. The specimen consists of two irregular fragments of abdi tissue, each measuring 0.4 cm. The specimen is totally submitted in one cassette. NM 06/05/2025 CPT:13267c0
--- NOTE | 2025-06-05 07:30 | COLBX_PTH ---
PATIENT: CARMEN HARVEY LOC: EN U#:[id number] AGE/SX: 79/F ROOM: RE06/05/[address]: Dr. Jose Gordillo DO : 1945 BED: DIS: 06/05/2025 SPEC #: [id number] RECD: 06/05/25 09:39 STATUS: RUTH REAsia #: [id number] PEE: 06/05/25 07:[address]: Jose Gordillo DEPT: SURGICAL PATHOLOGY RECD BY: Hang Colon ENTERED: 06/05/25 10:46 SP TYPE: COLON BX OTHR DR: Sameera Shoemaker, MITCH Tissues: A - Gastric mucous membrane B - Ileum, NOS C - COLON BIOPSY D - Sigmoid colon biopsy E - Rectum, NOS Procedures: Immunohistochemical Stains Surgery Specimen Level IV HEADER OPERATION: Colonoscopy with biopsy and polypectomy, EGD, biopsy PRE-OP DIAGNOSIS: Epigastric pain, right upper quadrant pain, nausea, weight loss TISSUE SUBMITTED: A- Gastric antrum biopsy, B- Terminal ileum biopsy, C- Random colon biopsy, D- Sigmoid polyps, E- Rectal polyp biopsy MICROSCOPIC DIAGNOSIS A. Gastric antrum, biopsy: * Antral/oxyntic mucosa with chronic focal active inflammation and reactive changes * No morphologic evidence of Helicobacter pylori organisms is identified on H&E or immunostained sections B. Terminal ileum, biopsy: * Small bowel mucosa with no pathologic change C. Colon, random biopsy: * Colonic mucosa with no pathologic change D. Sigmoid colon, polyp, biopsy: * Tubular adenoma E. Rectum, polyp, biopsy: * Hyperplastic polyp MICROSCOPIC DESCRIPTION Slides are reviewed. All matched controls reacted appropriately. These tests were developed and their performance characteristics determined by [facility]. They may not have been cleared or approved by the U.S. Food and Drug Administration. The FDA has determined that such clearance or approval is not necessary. The above immunohistochemical markers are viewed by the Pathologist. GROSS DESCRIPTION A. Received in fixative is one container labeled with the patient's name and designated Gastric antrum biopsy. The specimen consists of two irregular fragments of abdi tissue, each measuring 0.6 cm. The specimen is totally submitted in one cassette. B. Received in fixative is one container labeled with the patient's name and designated Terminal ileum biopsy. The specimen consists of two irregular fragments of abdi tissue that measure 0.4 and 0.5 cm. The specimen is totally submitted in one cassette. C. Received in fixative is one container labeled with the patient's name and designated Random colon biopsy. The specimen consists of multiple irregular fragments of abdi tissue that in aggregate measure 1.3 x 0.4 x 0.1 cm. The specimen is totally submitted in one cassette. D. Received in fixative is one container labeled with the patient's name and designated Sigmoid polyps. The specimen consists of multiple abdi to red tissue fragments, <0.1 cm to 0.3 cm and a 0.8 x 0.5 x 0.2 cm pink-red and granular, sessile polyp. The resection margin of the polyp is inked black and it is trisected. Entirely submitted in 1 cassette. Smallest fragments unlikely to survive processing. E. Received in fixative is one container labeled with the patient's name and designated Rectal polyp biopsy. The specimen consists of two irregular fragments of abdi tissue, each measuring 0.4 cm. The specimen is totally submitted in one cassette. ID 06/05/2025 CPT:42826m8
--- NOTE | 2025-06-05 08:30 | OP.PROVAT_ITS ---
06/05/2025 Liu Olson Re : Upper GI endoscopy procedure for Nisha Esparza Dear aShara This procedure was performed on May. My impressions and recommendations are as follows: Impressions : - Normal esophagus. - Medium-sized hiatal hernia. - Erythematous mucosa in the gastric body. Biopsied. - Erythematous duodenopathy. Recommendations : - Discharge patient to home. - Resume previous diet. - Continue present medications. - Await pathology results. My findings are described in the full procedure note, which is enclosed. If I can be of further assistance, please feel free to contact me at . Sincerely, Jose Gordillo, 06/05/2025 8:29:41 AM This report has been signed electronically.
--- NOTE | 2025-06-05 08:30 | OP.EGD_ITS ---
Patient Name: Nisha Esparza Procedure Date: 06/05/2025 7:43 AM Date of : 1945 Age: 79 Procedure: Upper GI endoscopy Indications: Epigastric abdominal pain Providers: Jose Gordillo DO Referring MD: Liu Olson Medicines: Monitored Anesthesia Care Patient Profile: This is a 79 year old female. Refer to note in patient chart for documentation of history and physical. Patient has symptoms of acute abdominal cramping, acute right upper quadrant abdominal pain, acute right lower quadrant abdominal pain and chronic dyspepsia. Complications: No immediate complications. Procedure: Pre-Anesthesia Assessment: - Prior to the procedure, a History and Physical was performed, and patient medications and allergies were reviewed. The patient is competent. The risks and benefits of the procedure and the sedation options and risks were discussed with the patient. All questions were answered and informed consent was obtained. Patient identification and proposed procedure were verified by the physician in the pre-procedure area. Mental Status Examination: alert and oriented. Airway Examination: normal oropharyngeal airway and neck mobility. Respiratory Examination: clear to auscultation. CV Examination: normal. Prophylactic Antibiotics: The patient does not require prophylactic antibiotics. Prior Anticoagulants: The patient has taken no anticoagulant or antiplatelet agents except for NSAID medication. ASA Grade Assessment: II - A patient with mild systemic disease. After reviewing the risks and benefits, the patient was deemed in satisfactory condition to undergo the procedure. The anesthesia plan was to use monitored anesthesia care (MAC). Immediately prior to administration of medications, the patient was re-assessed for adequacy to receive sedatives. The heart rate, respiratory rate, oxygen saturations, blood pressure, adequacy of pulmonary ventilation, and response to care were monitored throughout the procedure. The physical status of the patient was re-assessed after the procedure. After obtaining informed consent, the endoscope was passed under direct vision. Throughout the procedure, the patient's blood pressure, pulse, and oxygen saturations were monitored continuously. The Colonoscope was introduced through the mouth, and advanced to the fourth part of the duodenum. Small bowel enteroscopy was deemed necessary. The upper GI endoscopy was accomplished without difficulty. The patient tolerated the procedure well. Scope In: 7:51:30 AM Scope Out: 7:55:22 AM Total Procedure Duration Time 0 hours 3 minutes 52 seconds Findings: The examined esophagus was normal. A medium-sized hiatal hernia was present. Patchy mildly erythematous mucosa without bleeding was found in the gastric body. Biopsies were taken with a cold forceps for histology. Verification of patient identification for the specimen was done. Biopsies were taken with a cold forceps for Helicobacter pylori testing. Verification of patient identification for the specimen was done. Estimated blood loss was minimal. Patchy mildly erythematous mucosa without active bleeding and with no stigmata of bleeding was found in the entire duodenum. Impression: - Normal esophagus. - Medium-sized hiatal hernia. - Erythematous mucosa in the gastric body. Biopsied. - Erythematous duodenopathy. Recommendation: - Discharge patient to home. - Resume previous diet. - Continue present medications. - Await pathology results. Procedure Code(s): --- Professional --- 30974, Small intestinal endoscopy, enteroscopy beyond second portion of duodenum, not including ileum; with biopsy, single or multiple CPT copyright 2021 [employer]. All rights reserved. The codes documented in this report are preliminary and upon professional fee coder review may be revised to meet current compliance requirements. Jose Gordillo DO 06/05/2025 8:29:41 AM This report has been signed electronically. Number of Addenda: 0 Note Initiated On: 06/05/2025 7:43 AM
--- NOTE | 2025-06-05 08:30 | OP.EGD_ITS ---
Patient Name: Nisha Esparza Procedure Date: 06/05/2025 7:43 AM Date of : 1945 Age: 79 Procedure: Upper GI endoscopy Indications: Epigastric abdominal pain Providers: Jose Gordillo DO Referring MD: Liu Olson Medicines: Monitored Anesthesia Care Patient Profile: This is a 79 year old female. Refer to note in patient chart for documentation of history and physical. Patient has symptoms of acute abdominal cramping, acute right upper quadrant abdominal pain, acute right lower quadrant abdominal pain and chronic dyspepsia. Complications: No immediate complications. Procedure: Pre-Anesthesia Assessment: - Prior to the procedure, a History and Physical was performed, and patient medications and allergies were reviewed. The patient is competent. The risks and benefits of the procedure and the sedation options and risks were discussed with the patient. All questions were answered and informed consent was obtained. Patient identification and proposed procedure were verified by the physician in the pre-procedure area. Mental Status Examination: alert and oriented. Airway Examination: normal oropharyngeal airway and neck mobility. Respiratory Examination: clear to auscultation. CV Examination: normal. Prophylactic Antibiotics: The patient does not require prophylactic antibiotics. Prior Anticoagulants: The patient has taken no anticoagulant or antiplatelet agents except for NSAID medication. ASA Grade Assessment: II - A patient with mild systemic disease. After reviewing the risks and benefits, the patient was deemed in satisfactory condition to undergo the procedure. The anesthesia plan was to use monitored anesthesia care (MAC). Immediately prior to administration of medications, the patient was re-assessed for adequacy to receive sedatives. The heart rate, respiratory rate, oxygen saturations, blood pressure, adequacy of pulmonary ventilation, and response to care were monitored throughout the procedure. The physical status of the patient was re-assessed after the procedure. After obtaining informed consent, the endoscope was passed under direct vision. Throughout the procedure, the patient's blood pressure, pulse, and oxygen saturations were monitored continuously. The Colonoscope was introduced through the mouth, and advanced to the fourth part of the duodenum. Small bowel enteroscopy was deemed necessary. The upper GI endoscopy was accomplished without difficulty. The patient tolerated the procedure well. Scope In: 7:51:30 AM Scope Out: 7:55:22 AM Total Procedure Duration Time 0 hours 3 minutes 52 seconds Findings: The examined esophagus was normal. A medium-sized hiatal hernia was present. Patchy mildly erythematous mucosa without bleeding was found in the gastric body. Biopsies were taken with a cold forceps for histology. Verification of patient identification for the specimen was done. Biopsies were taken with a cold forceps for Helicobacter pylori testing. Verification of patient identification for the specimen was done. Estimated blood loss was minimal. Patchy mildly erythematous mucosa without active bleeding and with no stigmata of bleeding was found in the entire duodenum. Impression: - Normal esophagus. - Medium-sized hiatal hernia. - Erythematous mucosa in the gastric body. Biopsied. - Erythematous duodenopathy. Recommendation: - Discharge patient to home. - Resume previous diet. - Continue present medications. - Await pathology results. Procedure Code(s): --- Professional --- 31929, Small intestinal endoscopy, enteroscopy beyond second portion of duodenum, not including ileum; with biopsy, single or multiple CPT copyright 2021 [employer]. All rights reserved. The codes documented in this report are preliminary and upon manager play review may be revised to meet current compliance requirements. Jose Gordillo DO 06/05/2025 8:29:41 AM This report has been signed electronically. Number of Addenda: 0 Note Initiated On: 06/05/2025 7:43 AM
--- NOTE | 2025-06-05 08:30 | OP.PROVAT_ITS ---
06/05/2025 Liu Olson Re : Upper GI endoscopy procedure for Nisha Esparza [facility] This procedure was performed on May. My impressions and recommendations are as follows: Impressions : - Normal esophagus. - Medium-sized hiatal hernia. - Erythematous mucosa in the gastric body. Biopsied. - Erythematous duodenopathy. Recommendations : - Discharge patient to home. - Resume previous diet. - Continue present medications. - Await pathology results. My findings are described in the full procedure note, which is enclosed. If I can be of further assistance, please feel free to contact me at . Sincerely, Jose Gordillo, 06/05/2025 8:29:41 AM This report has been signed electronically.
--- NOTE | 2025-06-05 08:30 | PCM.POST.ANE ---
Anesthesia: Postop Eval I Current Vital Signs Temperature: 97.4 F Pulse Rate: 79 Blood Pressure: 103/55 Respiratory Rate: 16 Pulse Ox: 98 Oxygen Delivery Method: Room Air Assessment Airway patent: Yes Spontaneous unlabored respirations: Yes Mental status: Awake and Calm nausea: No Vomiting: No Anesthesia Complication: No Fluid Hydration Crystalloid volume administer (ml): 500 Total IV fluid infused: 500 Progress Note Anesthesia document: Postop Eval 1 completed: Yes
--- NOTE | 2025-06-05 08:36 | OP.COLON_ITS ---
Patient Name: Nisha Esparza Procedure Date: 06/05/2025 7:55 AM Date of : 1945 Age: 79 Procedure: Colonoscopy Indications: Abdominal pain in the right lower quadrant, Abdominal pain in the right upper quadrant, Clinically significant diarrhea of unexplained origin Providers: Jose Gordillo DO Referring MD: Liu Olson Medicines: Monitored Anesthesia Care Patient Profile: This is a 79 year old female. Refer to note in patient chart for documentation of history and physical. Patient has symptoms of acute abdominal cramping, acute right upper quadrant abdominal pain, acute right lower quadrant abdominal pain and chronic dyspepsia. Last Colonoscopy: more than 3 years ago. Complications: No immediate complications. Procedure: Pre-Anesthesia Assessment: - Prior to the procedure, a History and Physical was performed, and patient medications and allergies were reviewed. The patient is competent. The risks and benefits of the procedure and the sedation options and risks were discussed with the patient. All questions were answered and informed consent was obtained. Patient identification and proposed procedure were verified by the physician in the pre-procedure area. Mental Status Examination: alert and oriented. Airway Examination: normal oropharyngeal airway and neck mobility. Respiratory Examination: clear to auscultation. CV Examination: normal. Prophylactic Antibiotics: The patient does not require prophylactic antibiotics. Prior Anticoagulants: The patient has taken no anticoagulant or antiplatelet agents except for NSAID medication. ASA Grade Assessment: II - A patient with mild systemic disease. After reviewing the risks and benefits, the patient was deemed in satisfactory condition to undergo the procedure. The anesthesia plan was to use monitored anesthesia care (MAC). Immediately prior to administration of medications, the patient was re-assessed for adequacy to receive sedatives. The heart rate, respiratory rate, oxygen saturations, blood pressure, adequacy of pulmonary ventilation, and response to care were monitored throughout the procedure. The physical status of the patient was re-assessed after the procedure. After I obtained informed consent, the scope was passed under direct vision. Throughout the procedure, the patient's blood pressure, pulse, and oxygen saturations were monitored continuously. The Colonoscope was introduced through the anus and advanced to the terminal ileum. The colonoscopy was performed without difficulty. The patient tolerated the procedure well. The quality of the bowel preparation was adequate. The terminal ileum, ileocecal valve, appendiceal orifice, and rectum were photographed. Scope In: 7:56:57 AM Scope Withdrawal Time 0 hours 16 minutes 56 seconds Scope Out: 8:17:38 AM Total Procedure Duration Time 0 hours 20 minutes 41 seconds Findings: The perianal and digital rectal examinations were normal. There was evidence of a prior end-to-side colo-colonic anastomosis in the recto-sigmoid colon. This was patent. Two sessile polyps were found in the sigmoid colon. The polyps were 10 mm in size. These polyps were removed with a hot snare. Resection and retrieval were complete. Verification of patient identification for the specimen was done. Estimated blood loss was minimal. Multiple small and large-mouthed diverticula were found in the rectum, recto-sigmoid colon, sigmoid colon, splenic flexure, hepatic flexure and ascending colon. A patchy area of the terminal ileum was congested. Biopsies were taken with a cold forceps for histology. Verification of patient identification for the specimen was done. Estimated blood loss was minimal. An area of mildly congested mucosa was found in the entire colon. Biopsies were taken with a cold forceps for histology. Verification of patient identification for the specimen was done. Estimated blood loss was minimal. Two sessile polyps were found in the rectum. The polyps were 5 mm in size. These polyps were removed with a jumbo cold forceps. Resection and retrieval were complete. Verification of patient identification for the specimen was done. Estimated blood loss was minimal. Impression: - Patent end-to-side colo-colonic anastomosis. - Two 10 mm polyps in the sigmoid colon, removed with a hot snare. Resected and retrieved. - Diverticulosis in the rectum, in the recto-sigmoid colon, in the sigmoid colon, at the splenic flexure, at the hepatic flexure and in the ascending colon. - Congested mucosa in the terminal ileum. Biopsied. - Congested mucosa in the entire examined colon. Biopsied. Recommendation: - Discharge patient to home. - Resume previous diet. - Continue present medications. - Await pathology results. - Repeat colonoscopy in 3 years for surveillance. Procedure Code(s): --- Professional --- 21006, Colonoscopy, flexible; with removal of tumor(s), polyp(s), or other lesion(s) by snare technique 95053, 59, Colonoscopy, flexible; with biopsy, single or multiple CPT copyright 2021 [employer]. All rights reserved. The codes documented in this report are preliminary and upon motor coach supervisor review may be revised to meet current compliance requirements. Jose Gordillo DO 06/05/2025 8:36:22 AM This report has been signed electronically. Number of Addenda: 0 Note Initiated On: 06/05/2025 7:55 AM
--- NOTE | 2025-06-05 08:36 | OP.PROVAT_ITS ---
06/05/2025 Liu Olson Re : Colonoscopy procedure for Nisha Esparza [facility] This procedure was performed on May. My impressions and recommendations are as follows: Impressions : - Patent end-to-side colo-colonic anastomosis. - Two 10 mm polyps in the sigmoid colon, removed with a hot snare. Resected and retrieved. - Diverticulosis in the rectum, in the recto-sigmoid colon, in the sigmoid colon, at the splenic flexure, at the hepatic flexure and in the ascending colon. - Congested mucosa in the terminal ileum. Biopsied. - Congested mucosa in the entire examined colon. Biopsied. Recommendations : - Discharge patient to home. - Resume previous diet. - Continue present medications. - Await pathology results. - Repeat colonoscopy in 3 years for surveillance. My findings are described in the full procedure note, which is enclosed. If I can be of further assistance, please feel free to contact me at . Sincerely, Jose Gordillo, 06/05/2025 8:36:22 AM This report has been signed electronically.
--- NOTE | 2025-06-05 08:36 | OP.COLON_ITS ---
Patient Name: Nisha Esparza Procedure Date: 06/05/2025 7:55 AM Date of : 1945 Age: 79 Procedure: Colonoscopy Indications: Abdominal pain in the right lower quadrant, Abdominal pain in the right upper quadrant, Clinically significant diarrhea of unexplained origin Providers: Jose Gordillo DO Referring MD: Liu Olson Medicines: Monitored Anesthesia Care Patient Profile: This is a 79 year old female. Refer to note in patient chart for documentation of history and physical. Patient has symptoms of acute abdominal cramping, acute right upper quadrant abdominal pain, acute right lower quadrant abdominal pain and chronic dyspepsia. Last Colonoscopy: more than 3 years ago. Complications: No immediate complications. Procedure: Pre-Anesthesia Assessment: - Prior to the procedure, a History and Physical was performed, and patient medications and allergies were reviewed. The patient is competent. The risks and benefits of the procedure and the sedation options and risks were discussed with the patient. All questions were answered and informed consent was obtained. Patient identification and proposed procedure were verified by the physician in the pre-procedure area. Mental Status Examination: alert and oriented. Airway Examination: normal oropharyngeal airway and neck mobility. Respiratory Examination: clear to auscultation. CV Examination: normal. Prophylactic Antibiotics: The patient does not require prophylactic antibiotics. Prior Anticoagulants: The patient has taken no anticoagulant or antiplatelet agents except for NSAID medication. ASA Grade Assessment: II - A patient with mild systemic disease. After reviewing the risks and benefits, the patient was deemed in satisfactory condition to undergo the procedure. The anesthesia plan was to use monitored anesthesia care (MAC). Immediately prior to administration of medications, the patient was re-assessed for adequacy to receive sedatives. The heart rate, respiratory rate, oxygen saturations, blood pressure, adequacy of pulmonary ventilation, and response to care were monitored throughout the procedure. The physical status of the patient was re-assessed after the procedure. After I obtained informed consent, the scope was passed under direct vision. Throughout the procedure, the patient's blood pressure, pulse, and oxygen saturations were monitored continuously. The Colonoscope was introduced through the anus and advanced to the terminal ileum. The colonoscopy was performed without difficulty. The patient tolerated the procedure well. The quality of the bowel preparation was adequate. The terminal ileum, ileocecal valve, appendiceal orifice, and rectum were photographed. Scope In: 7:56:57 AM Scope Withdrawal Time 0 hours 16 minutes 56 seconds Scope Out: 8:17:38 AM Total Procedure Duration Time 0 hours 20 minutes 41 seconds Findings: The perianal and digital rectal examinations were normal. There was evidence of a prior end-to-side colo-colonic anastomosis in the recto-sigmoid colon. This was patent. Two sessile polyps were found in the sigmoid colon. The polyps were 10 mm in size. These polyps were removed with a hot snare. Resection and retrieval were complete. Verification of patient identification for the specimen was done. Estimated blood loss was minimal. Multiple small and large-mouthed diverticula were found in the rectum, recto-sigmoid colon, sigmoid colon, splenic flexure, hepatic flexure and ascending colon. A patchy area of the terminal ileum was congested. Biopsies were taken with a cold forceps for histology. Verification of patient identification for the specimen was done. Estimated blood loss was minimal. An area of mildly congested mucosa was found in the entire colon. Biopsies were taken with a cold forceps for histology. Verification of patient identification for the specimen was done. Estimated blood loss was minimal. Two sessile polyps were found in the rectum. The polyps were 5 mm in size. These polyps were removed with a jumbo cold forceps. Resection and retrieval were complete. Verification of patient identification for the specimen was done. Estimated blood loss was minimal. Impression: - Patent end-to-side colo-colonic anastomosis. - Two 10 mm polyps in the sigmoid colon, removed with a hot snare. Resected and retrieved. - Diverticulosis in the rectum, in the recto-sigmoid colon, in the sigmoid colon, at the splenic flexure, at the hepatic flexure and in the ascending colon. - Congested mucosa in the terminal ileum. Biopsied. - Congested mucosa in the entire examined colon. Biopsied. Recommendation: - Discharge patient to home. - Resume previous diet. - Continue present medications. - Await pathology results. - Repeat colonoscopy in 3 years for surveillance. Procedure Code(s): --- Professional --- 05019, Colonoscopy, flexible; with removal of tumor(s), polyp(s), or other lesion(s) by snare technique 61234, 59, Colonoscopy, flexible; with biopsy, single or multiple CPT copyright 2021 [employer]. All rights reserved. The codes documented in this report are preliminary and upon terrazzo supervisor review may be revised to meet current compliance requirements. Jose Gordillo DO 06/05/2025 8:36:22 AM This report has been signed electronically. Number of Addenda: 0 Note Initiated On: 06/05/2025 7:55 AM
--- NOTE | 2025-06-05 14:06 | PCM.POSTANE2 ---
Anesthesia Postop Eval I Sum Postop Eval Completion status Anesthesia document: Postop Eval 1 completed: Yes Anesthesia Postop Eval I Summary Anesthesia Postop Eval I Summary: Anesthesia Postop Eval I: Assessment Summary Airway patent Yes 06/05/25 08:31 [email or web address] Spontaneous unlabored Yes 06/05/25 08:31 [email or web address] respirations Mental status Awake,Calm 06/05/25 08:31 [email or web address] nausea No 06/05/25 08:31 [email or web address] Vomiting No 06/05/25 08:31 [email or web address] Anesthesia Postop Eval I: Fluid Summary Crystalloid volume administer 500 06/05/25 08:31 [email or web address] (ml) Colloids volume administered ( ml) Blood Product volume administered (ml) Total IV fluid infused 500 06/05/25 08:31 [email or web address] Anesthesia Postop Eval I: Summary Notes Anesthesia Complication No 06/05/25 08:31 [email or web address] Anesthesia Complication Comment: Post-operative progress note Anesthesia: Postop Eval II Evaluation Mental status: Awake and Calm Pain Level: 1 nausea: No Vomiting: No Complications Anesthesia Complication: No
== END 2025-06-05 09:17 | disposition home or self-care (01) ==
LOC: EN 06:22 → AC 06:22
PROVIDERS: PCP Nurse Practitioner Primary Care; Referring Provider Nurse Practitioner Primary Care; Visit Provider Internal Medicine Gastroenterology
PROC: 0DJD8ZZ Inspection of Lower Intestinal Tract, Via Natural or Artificial Opening Endoscopic (ICD-10-PCS; CPT 45378; principal; 2025-06-05 07:25)
DX: R10.85 Abdominal pain of multiple sites (principal); I48.91 Unspecified atrial fibrillation; Z79.4 Long term (current) use of insulin; E11.22 Type 2 diabetes mellitus with diabetic chronic kidney disease; N18.30 Chronic kidney disease, stage 3 unspecified; K44.9 Diaphragmatic hernia without obstruction or gangrene; I12.9 Hypertensive chronic kidney disease with stage 1 through stage 4 chronic kidney disease, or unspecified chronic kidney disease; Z90.710 Acquired absence of both cervix and uterus; E78.00 Pure hypercholesterolemia, unspecified; Z79.84 Long term (current) use of oral hypoglycemic drugs; K21.9 Gastro-esophageal reflux disease without esophagitis; K63.5 Polyp of colon; K63.89 Other specified diseases of intestine; Z87.891 Personal history of nicotine dependence; R19.7 Diarrhea, unspecified; Z79.899 Other long term (current) drug therapy; Z90.49 Acquired absence of other specified parts of digestive tract; Z80.0 Family history of malignant neoplasm of digestive organs; G47.30 Sleep apnea, unspecified; Z99.89 Dependence on other enabling machines and devices; Z79.01 Long term (current) use of anticoagulants; Z98.41 Cataract extraction status, right eye; Z98.42 Cataract extraction status, left eye; Z95.1 Presence of aortocoronary bypass graft; Z98.51 Tubal ligation status; R63.4 Abnormal weight loss; K31.89 Other diseases of stomach and duodenum; K57.30 Diverticulosis of large intestine without perforation or abscess without bleeding; K62.1 Rectal polyp; K29.50 Unspecified chronic gastritis without bleeding
CPT/HCPCS: 45385; 45380; 43239; 88305; 88342; J2405

== ENCOUNTER 2025-06-26 09:10 | Emergency (ER) | payer MEDICARE, OTHER, SELFPAY ==
[2025-06-26 09:10] VITALS: BP 139/70; PULSE 84; RESP 18; TEMP 36.7; O2SAT 97; BMI 33.9
--- NOTE | 2025-06-26 09:24 | ED.VIS.GI ---
HPI HPI - GI History of Present Illness Chief Complaint: Abd Pain Abdominal Pain/Flank Pain Onset: Days (4) Context: Gradual Onset Timing: Continuous Quality: Aching Location: RUQ and RLQ Worsened by: Movement Relieved by: Nothing Nausea/Vomiting/Emesis GI Symptom: Positive for Nausea; Negative for Vomiting Diarrhea/Melena/Hematochezia GI Symptom: Positive for Diarrhea; Negative for Melena or Hematochezia Stool Quality: Positive for Watery Associated Symptoms Associated Symptoms: Negative for Dysuria, Frequency or Hematuria Narrative Narrative: Patient presents with abdominal pain that has been getting worse over the past 4 days. Patient describes it as aching. Patient states it is mainly over the right side of her abdomen. Patient states that is gradually getting worse. Patient states it is worse with certain movements. Patient admits to some nausea but denies any vomiting. Patient admits to some watery diarrhea. Patient states she had a colonoscopy on 06/05. Patient states she was constipated after that. Patient states she took a laxative and has been having diarrhea ever since. Patient denies any melena or hematochezia. Patient denies any dysuria, frequency, or hematuria. Patient admits to a low-grade fever of [address] [facility] Medical History Insulin dependent diabetes mellitus History of renal disease Back pain Difficulty swallowing Heartburn Gastric reflux History of pain when walking History of atrial fibrillation Wears glasses Post-menopausal History of steroid therapy Fatty liver High cholesterol Scoliosis Dietary restriction History of hiatal hernia History of Clostridium difficile infection History of diverticulitis Diverticulosis Former smoker CPAP (continuous positive airway pressure) dependence Hypertension Cardiology follow-up encounter History of echocardiogram History of stress test Diverticulitis Hx of Clostridium difficile infection Hemorrhoids Acid reflux Diarrhea Nausea Asthma Sleep apnea A-fib Heart disease Heart murmur Arthritis Back problem Diabetes Fatigue Home Medications ?Medication ?Instructions ?Recorded ?Last Taken ?Type ascorbic acid (vitamin C) 250 mg 500 mg PO QDAY supplement 12/22/17 06/25/25 History tablet atorvastatin 40 mg tablet 40 mg PO QDAY cholesterol 12/22/17 06/25/25 History calcium 600 mg (as 1,000 mg PO DAILY supplement 12/22/17 06/25/25 History carbonate)-vitamin D3 12.5 mcg (500 unit) capsule (Calcium with Vit D3) folic acid 400 mcg tablet 0.4 mg PO QDAY supplement 12/22/17 06/25/25 History lorazepam 0.5 mg tablet 0.5 mg PO TID PRN anxiety 12/22/17 06/26/25 History montelukast 10 mg tablet 10 mg PO QPM allergies 12/22/17 06/25/25 History vitamin B complex (B 1 tab PO QDAY supplement 12/22/17 06/25/25 History Complex-Vitamin B12 tablet) metoprolol succinate 50 mg 50 mg PO DAILY heart 06/20/23 06/26/25 History tablet,extended release 24 hr albuterol sulfate 90 mcg/actuation 2 puff inhalation Q6H PRN 05/05/25 06/19/25 History aerosol inhaler (Ventolin HFA) shortness of breath or wheezing apixaban 5 mg tablet (Eliquis) 5 mg PO BID blood thinner 05/05/25 06/26/25 History biotin 10,000 mcg chewable tablet 7,500 mcg PO DAILY supplement 05/05/25 06/25/25 History (Hair, Skin and Nails (biotin)) empagliflozin 10 mg tablet 5 mg PO QAM blood sugar 05/05/25 06/25/25 History (Jardiance) cholecalciferol (vitamin D3) 25 3,000 unit PO DAILY supplememt 06/03/25 06/25/25 History mcg (1,000 unit) tablet (PureVita Vitamin D3) hydrochlorothiazide 12.5 mg tablet 12.5 mg PO DAILY 06/03/25 Unknown History Held on 06/26/25. Instructions: MD Ordered loratadine 10 mg tablet (Claritin) 10 mg PO DAILY PRN allergy symptoms 06/03/25 Unknown History niacin 400 mg (inositol niacinate 1 cap PO BID supplement 06/03/25 06/25/25 History 500 mg) capsule (Niacin Flush Free) sucralfate 1 gram tablet (Carafate) 1 g PO QHS ulcers 06/03/25 06/25/25 History acetaminophen 650 mg 650 mg PO .q4 PRN pain/fever 06/26/25 06/25/25 History tablet,extended release (Tylenol 8 Hour) cholestyramine 4 gram oral powder 2 g PO DAILY cholesterol 06/26/25 06/25/25 History (Cholestyramine Light) dicyclomine 10 mg capsule 20 mg (2 x 10 mg) PO TIDAC #20 06/26/25 Unknown Rx CAPSULES hydrocortisone 2.5 % topical cream 1 applic topical PRN itch 06/26/25 Unknown History insulin NPH isoph U-100 human 100 40 unit subcut DAILY blood sugar 06/26/25 06/26/25 History unit/mL subcutaneous suspension (Novolin N NPH U-100 Insulin isophane) loperamide 2 mg capsule 2 mg PO PRN diarrhea 06/26/25 Unknown History (Anti-Diarrheal (loperamide)) losartan 25 mg tablet 25 mg PO DAILY 06/26/25 Unknown History Held on 06/26/25. Instructions: MD Ordered magnesium oxide 400 mg (241.3 mg 400 mg PO BID supplement 06/26/25 06/25/25 History magnesium) tablet metronidazole 0.75 % topical cream 1 applic topical BID rosacea 06/26/25 06/25/25 History nystatin 100,000 unit/gram topical 1 applic topical DAILY PRN rash 06/26/25 Unknown History powder (Nystop) ondansetron HCl 4 mg tablet 4 mg PO Q6H PRN nausea and vomiting 06/26/25 06/21/25 History pantoprazole 40 mg tablet,delayed 40 mg PO .qam gerd 06/26/25 06/26/25 History release potassium chloride 20 mEq 20 meq PO BID supplement 06/26/25 06/25/25 History tablet,extended release(part/cryst) Allergy/AdvReac Type Severity Reaction Status Date / Time codeine Allergy Unknown Unknown Verified 06/26/25 09:10 hydrocodone (From Sylvester) Allergy Unknown Unknown Verified 06/26/25 09:10 Iodinated Contrast Media Allergy Unknown Unknown Verified 06/26/25 09:10 (Iodinated Contrast- Oral and IV Dye) morphine Allergy Unknown Unknown Verified 06/26/25 09:10 nitrofurantoin (From Allergy Unknown Unknown Verified 06/26/25 09:10 Macrodantin) tramadol Allergy Unknown Unknown Verified 06/26/25 09:10 Family History Mother Diabetes Hypertension Heart disease Hyperlipidemia Father Heart disease Diabetes Hyperlipidemia Daughter Seizures Sister CVA (cerebral vascular accident) Surgical History History of partial colectomy History of cardiac radiofrequency ablation Hx of bilateral cataract extraction Hx of cardiac cath History of surgery on arm History of shoulder surgery Hx of breast surgery Hx of breast biopsy Hx of CABG Hx of hysterectomy Hx of cholecystectomy Hx of tubal ligation Social History Smoking Status: Former smoker second hand exposure: No alcohol intake: never substance use type: does not use caffeine: Yes what type of physical activity do you participate in: none frequency: does not exercise seatbelt use: always ROS ROS ED Constitutional Constitutional ED: Reports fever(s); Denies chills Eyes Eyes: Denies blurry vision or change in vision ENT ENT ED: Denies rhinorrhea or sore throat Cardiovascular Cardiovascular: Denies chest pain or palpitations Respiratory/Chest Respiratory/Chest: Denies cough or dyspnea Gastrointestinal Gastrointestinal: Reports abdominal pain, diarrhea and nausea; Denies vomiting Genitourinary Genitourinary ED: Denies dysuria or hematuria Musculoskeletal Musculoskeletal: Denies back pain or neck pain Integumentary Denies abscess or rash Neurologic Neurologic: Reports headache(s); Denies weakness Allergic/Immunologic Allergic/Immunologic ED: Denies mouth swelling or urticaria EXAM Physical Exam Const Vital Signs: 06/26/25 09:10 06/26/25 11:10 Temperature 98.1 F Temperature Source Oral Pulse Rate 84 80 Respiratory Rate 18 Blood Pressure 139/70 H 113/62 Blood Pressure Mean 93 79 Pulse Ox 97 95 Oxygen Delivery Method Room Air Positive well nourished and well developed Constitutional Narrative: BMI is 33.9. General Appearance ED: well developed and NAD HEENT Reports moist mucous membranes Neck supple and no JVD Resp normal respiratory effort and clear to auscultation bilaterally Cardio regular rate and regular rhythm GI non-distended Palpation: soft and tender RLQ, RUQ and suprapubic; Negative for guarding or rebound tenderness present Neuro CN's II-XII intact bilaterally, moves all extremities and no sensory deficits noted Sensorium / Orientation: alert Motor Exam: strength 5/5 throughout Psych mental status grossly normal MDM MDM MDM Narrative Medical decision making narrative: Differential diagnosis includes choledocholithiasis, pancreatitis, colitis, C. difficile, ureteral calculus, dehydration, electrolyte abnormality, bowel obstruction, and perforation. CBC will be obtained to assess for leukocytosis and anemia. Comprehensive metabolic profile will be obtained to assess for hepatic function, renal function, and electrolyte abnormality. Lipase will be obtained to assess for pancreatitis. Urinalysis will be obtained to assess for urinary tract infection and hematuria. CT scan of the abdomen and pelvis will be obtained to assess for bowel obstruction, perforation, choledocholithiasis, and ureteral calculus. Lab Data Attestation: I reviewed the patient's lab results. Lab results narrative: CBC was reviewed and was within normal limits. Comprehensive metabolic profile was reviewed. Total bilirubin was elevated at 3.94. AST and ALT were within normal limits. Alkaline phosphatase was minimally elevated at 111. The remainder is within normal limits. Lipase was reviewed and was normal at 15. Urinalysis was reviewed. There is no evidence of urinary tract infection or hematuria. Labs: Laboratory Results - last 24 hr 06/26/25 06/26/25 09:52 11:37 WBC 8.9 RBC 4.39 Hgb 12.2 Hct 37.8 MCV 86.1 MCH 27.8 MCHC 32.3 RDW Std Deviation 49.0 H RDW Coeff of Jennie 15.6 H Plt Count 199 MPV 10.5 Immature Gran % (Auto) 0.300 Neut % (Auto) 77.3 H Lymph % (Auto) 9.9 L [place] % (Auto) 11.3 H Eos % (Auto) 0.9 Baso % (Auto) 0.3 Absolute Neuts (auto) 6.9 Absolute Lymphs (auto) 0.88 Nucleated RBC % 0 Sodium 139 Potassium 3.8 Chloride 104 Carbon Dioxide 22.3 Anion Gap 13 BUN 13 Creatinine 0.89 Estim Creat Clear Calc 47.52 L Est GFR (MDRD) Non-Af 66 BUN/Creatinine Ratio 14.7 Glucose 149 H Calcium 9.5 Total Bilirubin 3.94 H AST 22 ALT 17 Alkaline Phosphatase 111 H Total Protein 6.7 Albumin 3.8 Globulin 2.9 Albumin/Globulin Ratio 1.3 Lipase 15 Urine Color Yellow Urine Clarity Clear Urine pH 7.0 Ur Specific [place] 1.010 Urine Protein Negative Urine Glucose (UA) 1000 H Urine Ketones Negative Urine Occult Blood 150 H Urine Nitrite Negative Urine Bilirubin Negative Urine Urobilinogen Normal Ur Leukocyte Esterase Negative Urine RBC 0 SEEN Urine WBC 0-5 SEEN Ur Squamous Epith Cells 0-5 SEEN Urine Bacteria 0 SEEN Urine Mucus 0 SEEN Radiography Diagnostic Testing: Clinical Impression(s) from Imaging Studies Abdomen/Pelvis CT 06/26/25 09:31 IMPRESSION: Hiatal hernia. Mild splenomegaly. Multiple left renal cysts. Nonobstructive right intrarenal calculus. Reading Location: [facility] CT scan of the abdomen and pelvis was obtained. There is mild splenomegaly. There are left renal cysts noted. There is a right renal calculus but no ureteral calculus. There is no acute abnormality noted. This was interpreted by the radiologist and was also independently reviewed by myself. Treatment and Re-Evaluation :: Patient was given IV fluids and Zofran. Patient is still complaining of some right-sided abdominal pain. Case was discussed with Dr. Gordillo. He recommended starting the patient on Bentyl. He recommended continuing the cholestyramine. Patient was instructed to follow-up in 5 to 7 days. Patient was instructed to return if worse in any way. Patient understood and was agreeable with the plan. All questions were answered. Discharge Plan Triage Chief Complaint: Abd Pain ED Provider: Derrek Melara Dx/Rx/DC Orders Clinical Impression: RUQ pain, Diabetes, Hyperbilirubinemia Instructions: ED Abdominal Pain Unkn Cause Fem Prescriptions: New dicyclomine 10 mg capsule 20 mg PO TIDAC Qty: 20 0RF No Action montelukast 10 mg tablet 10 mg PO QPM lorazepam 0.5 mg tablet 0.5 mg PO TID PRN (Reason: anxiety ) atorvastatin 40 mg tablet 40 mg PO QDAY calcium carbonate-vitamin D3 [Calcium 600 with Vitamin D3] 600 mg(1,500mg) -500 unit capsule 1,000 mg PO DAILY ascorbic acid (vitamin C) 250 mg tablet 500 mg PO QDAY folic acid 400 mcg tablet 0.4 mg PO QDAY vitamin B complex [B Complex-Vitamin B12] tablet 1 tab PO QDAY albuterol sulfate [Ventolin HFA] 90 mcg/actuation HFA aerosol inhaler 2 puff inhalation Q6H PRN (Reason: shortness of breath or wheezing) Hair, Skin and Nails (biotin) 10,000 mcg tablet,chewable 7,500 mcg PO DAILY Eliquis 5 mg tablet 5 mg PO BID Jardiance 10 mg tablet 5 mg PO QAM metoprolol succinate 50 mg tablet extended release 24 hr 50 mg PO DAILY hydrochlorothiazide 12.5 mg tablet 12.5 mg PO DAILY cholecalciferol (vitamin D3) [PureVita Vitamin D3] 25 mcg (1,000 unit) tablet 3,000 unit PO DAILY niacin (inositol niacinate) [Niacin Flush Free] 400 mg niacin (500 mg) capsule 1 cap PO BID loratadine [Claritin] 10 mg tablet 10 mg PO DAILY PRN (Reason: allergy symptoms) sucralfate [Carafate] 1 gram tablet 1 g PO QHS ondansetron HCl 4 mg tablet 4 mg PO Q6H PRN (Reason: nausea and vomiting) magnesium oxide 400 mg (241.3 mg magnesium) tablet 400 mg PO BID losartan 25 mg tablet 25 mg PO DAILY potassium chloride 20 mEq tablet,ER particles/crystals 20 meq PO BID pantoprazole 40 mg tablet,delayed release (DR/EC) 40 mg PO .qam nystatin [Nystop] 100,000 unit/gram powder 1 applic topical DAILY PRN (Reason: rash) loperamide [Anti-Diarrheal (loperamide)] 2 mg capsule 2 mg PO PRN acetaminophen [Tylenol 8 Hour] 650 mg tablet extended release 650 mg PO .q4 PRN (Reason: pain/fever) hydrocortisone 2.5 % cream 1 applic topical PRN metronidazole 0.75 % cream 1 applic topical BID Novolin N NPH U-100 Insulin 100 unit/mL suspension 40 unit subcut DAILY Cholestyramine Light 4 gram powder 2 g PO DAILY Rx Instructions: no meds 1 hr before/4-6 hr after dose Primary Care Provider: Sameera Shoemaker NP Referrals: Jose Gordillo DO [Med Staff - Active Staff, Gastroenterology] - 5-7 Days Sameera Shoemaker NP, [facility] [Primary Care Provider, Medical] - 3-5 Days Print Language: [place]an Disposition Disposition: Home, Self Care
--- NOTE | 2025-06-26 09:31 | CT_ITS ---
PROCEDURE: CT/Abdomen/Pelvis without Cont
[2025-06-26] MEDS: 0.9% Normal Saline (1000mL) 1,000 ML 999 ML IV (09:53)
[2025-06-26 10:14] LABS: Hematocrit 37.8 % (37-47); Hemoglobin 12.2 g/dL (12.0-15.0); Immature Granulocytes Count 0.030 X10^3/uL (0.0-0.0); Mean Corp Hgb Conc 32.3 g/dL (32-36); Mean Corpuscular Volume 86.1 fL (81-99); Mean Platelet Vol. 10.5 fl (6.2-12.0); NRBC Flagged by Analyzer 0 % (0-5); Platelet Count 199 K/mm3 (150-450); RBC Distribution Width CV 15.6 % (11.6-14.6); RBC Distribution Width SD 49.0 fl (35.1-43.9); Red Blood Count 4.39 M/mm3 (4.2-5.4); White Blood Count 8.9 K/mm3 (4.4-11.0)
[2025-06-26 10:47] LABS: AST(SGOT) 22 U/L (<=31); Alanine Aminotransfer ALT/SGPT 17 U/L (<=34); Albumin, Serum 3.8 g/dL (3.4-4.8); Alkaline Phosphatase 111 U/L (35-104); Anion Gap 13 (5-15); BUN 13 mg/dL (4-19); BUN/Creat Ratio 14.7 RATIO (10-20); Calcium,Total 9.5 mg/dL (7.6-11.0); Carbon Dioxide 22.3 mmol/L (21.0-32.0); Chloride 104 mmol/L (98-108); Estimated Creatinine Clearance 47.52 ml/min (50-250); Globulin 2.9 g/dL (2.2-4.2); Glucose 149 mg/dL (70-99); Lipase 15 U/L (13-75); Potassium 3.8 mmol/L (3.3-5.1)
[2025-06-26 11:10] VITALS: BP 113/62; PULSE 80; O2SAT 95
[2025-06-26 11:40] LABS: Mucous, Urine 0 SEEN /hpf (<or=2+); Red Blood Cells-Urine 0 SEEN /hpf (0-5)
[2025-06-26 12:02] LABS: Color, Urine Yellow (Yellow); Glucose, Dipstick 1000 mg/dl (Normal); Ketone-Dipstick Negative (Negative); Leukocyte Esterase-Dipstick Negative /ul (Negative); Nitrite-Dipstick Negative (Negative); Occult Blood-Urine 150 /ul (Negative); Protein-Dipstick Negative (Negative); Specific Gravity, Urine 1.010 (1.002-1.030); Urine Bilirubin Dipstick Negative (Negative)
[2025-06-26 12:16] LABS: Squamous Epithelial Cells - UA 0-5 SEEN /hpf (5-10)
[2025-06-26 13:00] VITALS: BP 115/70; PULSE 80; O2SAT 96
[2025-06-26 13:01] VITALS: BP 115/70; PULSE 80; RESP 20; TEMP 36.8; O2SAT 96
== END 2025-06-26 13:12 | disposition home or self-care (01) ==
PROVIDERS: Emergency Provider Emergency Medicine; PCP Nurse Practitioner Primary Care; Visit Provider Emergency Medicine
DX: R10.11 Right upper quadrant pain (principal); E11.9 Type 2 diabetes mellitus without complications; E80.6 Other disorders of bilirubin metabolism; E78.00 Pure hypercholesterolemia, unspecified; I10 Essential (primary) hypertension; Z87.891 Personal history of nicotine dependence; Z79.01 Long term (current) use of anticoagulants; Z79.899 Other long term (current) drug therapy; Z79.51 Long term (current) use of inhaled steroids
CPT/HCPCS: 74176; 80053; 81001; 83690; 85025; 87493; 87506; 96361; 96374; 96376; 99283; A4216; J2405

== ENCOUNTER → 2025-07-02 | Outpatient (CLI) | payer MEDICARE, OTHER, SELFPAY ==
[2025-07-02 11:05] LABS: Hematocrit 35.4 % (37-47); Hemoglobin 11.2 g/dL (12.0-15.0); Immature Granulocytes Count 0.030 X10^3/uL (0.0-0.0); Mean Corp Hgb Conc 31.6 g/dL (32-36); Mean Corpuscular Volume 85.9 fL (81-99); Mean Platelet Vol. 10.0 fl (6.2-12.0); NRBC Flagged by Analyzer 0 % (0-5); Platelet Count 261 K/mm3 (150-450); RBC Distribution Width CV 15.3 % (11.6-14.6); RBC Distribution Width SD 48.0 fl (35.1-43.9); Red Blood Count 4.12 M/mm3 (4.2-5.4); White Blood Count 5.8 K/mm3 (4.4-11.0)
[2025-07-02 11:57] LABS: AST(SGOT) 28 U/L (<=31); Alanine Aminotransfer ALT/SGPT 19 U/L (<=34); Albumin, Serum 3.8 g/dL (3.4-4.8); Alkaline Phosphatase 102 U/L (35-104); Anion Gap 13 (5-15); BUN 12 mg/dL (4-19); BUN/Creat Ratio 14.0 RATIO (10-20); Calcium,Total 9.4 mg/dL (7.6-11.0); Carbon Dioxide 21.7 mmol/L (21.0-32.0); Chloride 106 mmol/L (98-108); Globulin 2.9 g/dL (2.2-4.2); Glucose 174 mg/dL (70-99); Potassium 4.2 mmol/L (3.3-5.1)
== END | disposition home or self-care (01) ==
LOC: LAB 10:21
PROVIDERS: PCP Nurse Practitioner Primary Care; Referring Provider Student in an Organized Health Care Education/Training Program; Visit Provider Student in an Organized Health Care Education/Training Program
DX: R19.7 Diarrhea, unspecified (principal)
CPT/HCPCS: 36415; 80053; 85025

== ENCOUNTER → 2025-07-04 | Outpatient (CLI) | payer MEDICARE, OTHER, SELFPAY ==
--- NOTE | 2025-07-04 10:44 | MRI_ITS ---
PROCEDURE: MRCP ABDOMEN WITHOUT CONTRAST 07/04/2025 REASON FOR EXAM: RUQ PAIN TECHNIQUE: Procedure Code: MRIMRCP Modality: MR Procedure: MRCP ABDOMEN WITHOUT CONTRAST Multiplanar and multisequence images were obtained. CONTRAST: None. COMPARISON: CT abdomen and pelvis without contrast, 06/26/2025. FINDINGS: Liver: Normal in size. No focal abnormalities. Biliary: The gallbladder is surgically absent. There is no intrahepatic biliary ductal dilatation. The common bile duct measures 8 millimeters in diameter, normal for a patient of this age. There is a apparent 4 millimeter in diameter rounded low signal filling defect in the distal common bile duct, approximally 1 centimeter proximal to the intrapancreatic portion. Pancreas: There is a 5 x 3 millimeter cystic nodule in the body of the pancreas, inferior to the pancreatic duct, associated with a side branch duct, consistent with a side-branch IPMN. Spleen: There is mild splenomegaly with the spleen measuring 13.2 centimeters in axial dimension. Adrenals: Normal. Kidneys: There is a 5.5 centimeter cortical cyst in the upper pole of the left kidney. There is a 3.3 centimeter cortical cyst in the upper pole of the left kidney. There is a 2.1 centimeter cortical cyst in the interpolar region of the left kidney. There is a 1.2 centimeter cortical cyst in the interpolar region of the left kidney. There is a 1.1 centimeter cortical cyst in the interpolar region of the left kidney. There is a 6 millimeter cortical cyst in the interpolar region of the right kidney. All of the cysts demonstrate characteristics consistent with Bosniak 1 or 2 cysts. There are bilateral extrarenal renal pelvises. GI tract: There is a 3.6 centimeter in diameter diverticulum in the descending portion of the duodenum. The visualized gastrointestinal tract is otherwise unremarkable. Peritoneum / Retroperitoneum: There are no abnormal intra or retroperitoneal masses or fluid collections. There is no ascites. Visualized pelvic structures: Unremarkable. Lymph Nodes: There is no significant retroperitoneal or mesenteric lymphadenopathy. Major Vessels: Unremarkable. Bones: Status post median sternotomy. There is multilevel degenerative disc disease of the lumbar spine. MRI/MRCP Abdomen without Contrast IMPRESSION: One. Nonobstructing filling defect in the common bile duct as described consis tent with choledocholithiasis. Two. 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 Three. Mild splenomegaly. Four. Multiple Bosniak 1 or 2 cortical cysts in both kidneys. Five. Other findings as noted. Incidental Finding Alert: Side branch IPMN. Recommend follow-up with MR abdome n with and without contrast in 1 year. Reading Location: [place] [id number]
== END | disposition home or self-care (01) ==
LOC: MRI 10:42
PROVIDERS: PCP Nurse Practitioner Primary Care; Referring Provider Student in an Organized Health Care Education/Training Program; Visit Provider Student in an Organized Health Care Education/Training Program
DX: R10.11 Right upper quadrant pain (principal); R63.4 Abnormal weight loss; R19.5 Other fecal abnormalities; R17 Unspecified jaundice
CPT/HCPCS: 74181

== ENCOUNTER 2025-07-30 10:16 | Day surgery (SDC) | payer MEDICARE, OTHER, SELFPAY ==
--- NOTE | 2025-07-28 10:35 | PAT.ANESEVAL ---
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 When Was Last Pacemaker Check QUESTION #4 FULL TEXT: You/Your Family Experience fever (hyperthermia) with Anesthesia Last Oral Intake Last Oral intake: Last Oral Intake NPO since Meds taken in AM with sips of water? 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 Female Yes 07/28/25 10:22 HX of Motion Sickness Yes 07/28/25 10:22 HX of N/V After Surgery No 07/28/25 10:22 Non-Smoker Yes 07/28/25 10:22 Duration of Surgery greater No 07/28/25 10:22 than 60 minutes Number of Risk Factors 3 07/28/25 10:22 PONV Score Moderate Risk 07/28/25 10:22 Height & Weight Height & Weight: Anesthesia: Height & Weight Height 4 ft 11 in 06/26/25 09:10 Respiratory Assessment Respiratory Assessment - wood casket assembler: Respiratory Tract Infection Hx - wood casket assembler Hx Respiratory Tract Infection No 07/28/25 10:22 STOP Sleep Apnea STOP Sleep Apnea - wood casket assembler: STOP Sleep Apnea - wood casket assembler Hx Hypertension Yes: CONTROLLED WITH MED 07/28/25 10:22 Hx Sleep Apnea Yes 07/28/25 10:22 CPAP Yes: NON COMPLIANT 07/28/25 10:22 BIPAP No 07/28/25 10:22 Do you snore loudly (louder than talking or can be heard Do you often feel tired/ fatigued/ sleepy during daytime? Has anyone observed you stop breathing during sleep? STOP Results Positive 07/28/25 10:22 QUESTION #5 FULL TEXT : Do you snore loudly (louder than talking or can be heard through closed doors)? 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 Specify any problems Hx of Preganancy in last 3 N/A 07/28/25 10:22 Months Nurse Filling Out Transfusion NBUCHER 07/28/25 10:22 & Questions: Date: 07/28/25 07/28/25 10:22 Time: 10:27 07/28/25 10:22 Patient unable to answer at this time (ie. confused, unrespo /Reproduction History /Reproductive History - wood casket assembler: /Reproductive Hx- wood casket assembler Hx Now No 07/28/25 10:22 Gestational Age (in weeks): EDC: Hx Hx Para Hx Section SAB No 07/28/25 10:22 Does the father of the baby or his family experience fever w Father of the baby Malignant Hypertension history comment [facility] Medical History (Updated 07/28/25 @ 10:34 by Sheryl Gupta) Insulin dependent diabetes mellitus History of renal disease Back pain Difficulty swallowing Heartburn Gastric reflux History of pain when walking History of atrial fibrillation Wears glasses Post-menopausal History of steroid therapy Fatty liver High cholesterol Scoliosis Dietary restriction History of hiatal hernia History of Clostridium difficile infection History of diverticulitis Diverticulosis Former smoker CPAP (continuous positive airway pressure) dependence Hypertension Cardiology follow-up encounter History of echocardiogram History of stress test Diverticulitis Hx of Clostridium difficile infection Hemorrhoids Acid reflux Diarrhea Nausea Asthma Sleep apnea A-fib Heart disease Heart murmur Arthritis Back problem Diabetes Fatigue Home Medications ?Medication ?Instructions ?Recorded ?Last Taken ?Type ascorbic acid (vitamin C) 250 mg 500 mg PO QDAY supplement 12/22/17 06/25/25 History tablet atorvastatin 40 mg tablet 40 mg PO QDAY cholesterol 12/22/17 06/25/25 History calcium 600 mg (as 1,000 mg PO DAILY supplement 12/22/17 06/25/25 History carbonate)-vitamin D3 12.5 mcg (500 unit) capsule (Calcium with Vit D3) folic acid 400 mcg tablet 0.4 mg PO QDAY supplement 12/22/17 06/25/25 History lorazepam 0.5 mg tablet 0.5 mg PO TID PRN anxiety 12/22/17 06/26/25 History montelukast 10 mg tablet 10 mg PO QPM allergies 12/22/17 06/25/25 History vitamin B complex (B 1 tab PO QDAY supplement 12/22/17 06/25/25 History Complex-Vitamin B12 tablet) metoprolol succinate 50 mg 50 mg PO DAILY heart 06/20/23 06/26/25 History tablet,extended release 24 hr albuterol sulfate 90 mcg/actuation 2 puff inhalation Q6H PRN 05/05/25 06/19/25 History aerosol inhaler (Ventolin HFA) shortness of breath or wheezing apixaban 5 mg tablet (Eliquis) 5 mg PO BID blood thinner 05/05/25 07/25/25 History biotin 10,000 mcg chewable tablet 7,500 mcg PO DAILY supplement 05/05/25 06/25/25 History (Hair, Skin and Nails (biotin)) empagliflozin 10 mg tablet 5 mg PO QAM blood sugar 05/05/25 07/25/25 History (Jardiance) cholecalciferol (vitamin D3) 25 3,000 unit PO DAILY supplememt 06/03/25 06/25/25 History mcg (1,000 unit) tablet (PureVita Vitamin D3) loratadine 10 mg tablet (Claritin) 10 mg PO DAILY PRN allergy symptoms 06/03/25 Unknown History niacin 400 mg (inositol niacinate 1 cap PO BID supplement 06/03/25 06/25/25 History 500 mg) capsule (Niacin Flush Free) sucralfate 1 gram tablet (Carafate) 1 g PO QHS ulcers 06/03/25 06/25/25 History acetaminophen 650 mg 650 mg PO Q4H PRN PRN pain/fever 06/26/25 06/25/25 History tablet,extended release (Tylenol 8 Hour) cholestyramine 4 gram oral powder 2 g PO DAILY cholesterol 06/26/25 06/25/25 History (Cholestyramine Light) hydrocortisone 2.5 % topical cream 1 applic topical PRN itch 06/26/25 Unknown History insulin NPH isoph U-100 human 100 40 unit subcut DAILY blood sugar 06/26/25 06/26/25 History unit/mL subcutaneous suspension (Novolin N NPH U-100 Insulin isophane) loperamide 2 mg capsule 2 mg PO PRN diarrhea 06/26/25 Unknown History (Anti-Diarrheal (loperamide)) magnesium oxide 400 mg (241.3 mg 400 mg PO BID supplement 06/26/25 06/25/25 History magnesium) tablet metronidazole 0.75 % topical cream 1 applic topical BID rosacea 06/26/25 06/25/25 History nystatin 100,000 unit/gram topical 1 applic topical DAILY PRN rash 06/26/25 Unknown History powder (Nystop) ondansetron HCl 4 mg tablet 4 mg PO Q6H PRN nausea and vomiting 06/26/25 06/21/25 History pantoprazole 40 mg tablet,delayed 40 mg PO DAILY gerd 06/26/25 06/26/25 History release potassium chloride 20 mEq 20 meq PO BID supplement 06/26/25 06/25/25 History tablet,extended release(part/cryst) Allergy/AdvReac Type Severity Reaction Status Date / Time codeine Allergy Unknown Unknown Verified 07/28/25 10:14 hydrocodone (From [place]) Allergy Unknown Unknown Verified 07/28/25 10:14 Iodinated Contrast Media Allergy Unknown Unknown Verified 07/28/25 10:14 (Iodinated Contrast- Oral and IV Dye) morphine Allergy Unknown Unknown Verified 07/28/25 10:14 nitrofurantoin (From Allergy Unknown Unknown Verified 07/28/25 10:14 Macrodantin) tramadol Allergy Unknown Unknown Verified 07/28/25 10:14 Family History Mother Diabetes Hypertension Heart disease Hyperlipidemia Father Heart disease Diabetes Hyperlipidemia Daughter Seizures Sister CVA (cerebral vascular accident) Surgical History (Updated 07/28/25 @ 10:34 by Sheryl Gupta) History of heart surgery History of partial colectomy History of cardiac radiofrequency ablation Hx of bilateral cataract extraction Hx of cardiac cath History of surgery on arm History of shoulder surgery Hx of breast surgery Hx of breast biopsy Hx of CABG Hx of hysterectomy Hx of cholecystectomy Hx of tubal ligation Social History Smoking Status: Former smoker second hand exposure: No alcohol intake: never substance use type: does not use caffeine: Yes what type of physical activity do you participate in: none frequency: does not exercise seatbelt use: always Audit: Pertinent Findings Pertinent Findings EKG Perinent findings: 04/18/2018. Sinus bradycardia with first-degree AV block. 52 bpm. Recommendation Anesthesia Recommendation Anesthesia recommendation: OPTIMIZED for anesthesia
[2025-07-30] VITALS (9 sets, daily range): BP systolic 103–142; BP diastolic 51–73; PULSE 62–77; RESP 16–18; TEMP 36.1–36.8; O2SAT 96–100; BMI 32.5
--- NOTE | 2025-07-30 10:21 | EKG12_ITS ---
Test Reason : PREOP Blood Pressure : */* mmHG Vent. Rate : 77 BPM Atrial Rate : 77 BPM P-R Int : 202 ms QRS Dur : 76 ms QT Int : 388 ms P-R-T Axes : 56 -11 6 degrees QTcB Int : 439 ms Normal sinus rhythm Inferior infarct , age undetermined Cannot rule out Anterior infarct , age undetermined Abnormal ECG Poor R wave progression Confirmed by Johnny Morales ([id number]), editorial intern BYRON CHENG ([id number]) on 07/31/2025 2:02:54 PM Referred By: Sameera Shoemaker Confirmed By: Johnny Morales
[2025-07-30] MEDS: Lactated Ringers 1,000 ML 15 ML IV (10:45)
--- NOTE | 2025-07-30 10:52 | PCM.PRE.AN2 ---
ASA Classification* ASA Classification ASA Classification: 3 Assessment & Plan Anesthesia* Anesthesia Assessment Anesthesia Assessment: Discussed sedation and/or anesthesia options, risks, benefits, and alternatives with patient/parents/legal guardian/POA. Questions invited. The patient/parents/legal guardian/POA seems to understand and agrees to proceed with anesthesia plan. Reviewed the physical assessment, medical history, allergy history and patient home medications list prior to surgery/procedure/anesthetic and documented any changes. Performed airway and anesthesia risk assessments. Anesthesia Type Anesthesia Type: General History Source History Obtained from:: Patient and Chart Anesthesia Focused Assessment* Temperature: 97.1 F Pulse Rate: 77 Blood Pressure: 124/67 Respiratory Rate: 16 Pulse Ox: 100 Oxygen Delivery Method: Room Air Airway Assessment Mouth opens: >3 cm Mallampati Score: II Labs Anesthesia Preop lab: CBC WBC, (4.4-11.0) 5.8 K/mm3 07/02/25, 10: RBC, (4.2-5.4) 4.12 M/mm3 L 07/02/25, 10: Hgb, (12.0-15.0) 11.2 g/dL L 07/02/25, 10: Hct, (37-47) 35.4 % L 07/02/25, 10:26 Plt Count, (150-450) 261 K/mm3 07/02/25, 10:26 CHEMISTRY Potassium, (3.3-5.1) 4.2 mmol/L 07/02/25, 10:26 Sodium, (133-145) 141 mmol/L 07/02/25, 10:26 BUN, (4-19) 12 mg/dL 07/02/25, 10:26 Creatinine, (0.70-1.20) 0.85 mg/dL 07/02/25, 10: Glucose, (70-99) 174 mg/dL H 07/02/25, 10:26 POC Glucose, (74-106) 186 mg/dL H 06/23/23, 08:42 COAG PT, (11.7-14.9) 27.6 SECONDS H 04/09/18, 16:21 Pre-Assessment Diagnosis/Proposed Procedure Planned Operative Procedure(s): ERCP Anesthesia History 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 When Was Last Pacemaker Check QUESTION #4 FULL TEXT: You/Your Family Experience fever (hyperthermia) with Anesthesia Last Oral Intake Last Oral intake: Last Oral Intake NPO since 18:00 07/30/25 10:39 Meds taken in AM with sips of Yes 07/30/25 10:39 water? 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 Female Yes 07/28/25 10:22 HX of Motion Sickness Yes 07/28/25 10:22 HX of N/V After Surgery No 07/28/25 10:22 Non-Smoker Yes 07/28/25 10:22 Duration of Surgery greater No 07/28/25 10:22 than 60 minutes Number of Risk Factors 3 07/28/25 10:22 PONV Score Moderate Risk 07/28/25 10:22 Height & Weight Height & Weight: Anesthesia: Height & Weight Height 4 ft 11 in 07/30/25 10:39 Weight: 73 kg 07/30/25 10:39 Body Mass Index (BMI) 32.5 07/30/25 10:39 Respiratory Assessment Respiratory Assessment - security installation 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 Has anyone observed you stop breathing during sleep? STOP Results Positive 07/28/25 10:22 QUESTION #5 FULL TEXT : Do you snore loudly (louder than talking or can be heard through closed doors)? 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 Specify any problems Hx of Preganancy in last 3 N/A 07/28/25 10:22 Months Nurse Filling Out Transfusion NBUCHER 07/28/25 10:22 & Questions: Date: 07/28/25 07/28/25 10:22 Time: 10:27 07/28/25 10:22 Patient unable to answer at this time (ie. 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: /Reproductive Hx- security installation technician Hx Now No 07/28/25 10:22 Gestational Age (in weeks): EDC: Hx Hx Para Hx Section SAB No 07/28/25 10:22 Does the father of the baby or his family experience fever w Father of the baby Malignant Hypertension history comment Active Medications Active Medications: Current Medications Generic Name Dose Route Start Last Admin Trade Name Freq PRN Reason Stop Dose Admin Lactated Ringer's 1,000 mls @ 15 mls/hr 07/30/25 10:30 07/30/25 10:45 IV 15 mls/hr .Q48H TEJINDER Administration PFSH Medical History Insulin dependent diabetes mellitus History of renal disease Back pain Difficulty swallowing Heartburn Gastric reflux History of pain when walking History of atrial fibrillation Wears glasses Post-menopausal History of steroid therapy Fatty liver High cholesterol Scoliosis Dietary restriction History of hiatal hernia History of Clostridium difficile infection History of diverticulitis Diverticulosis Former smoker CPAP (continuous positive airway pressure) dependence Hypertension Cardiology follow-up encounter History of echocardiogram History of stress test Diverticulitis Hx of Clostridium difficile infection Hemorrhoids Acid reflux Diarrhea Nausea Asthma Sleep apnea A-fib Heart disease Heart murmur Arthritis Back problem Diabetes Fatigue Home Medications ?Medication ?Instructions ?Recorded ?Last Taken ?Type ascorbic acid (vitamin C) 250 mg 500 mg PO QDAY supplement 12/22/17 06/25/25 History tablet atorvastatin 40 mg tablet 40 mg PO QDAY cholesterol 12/22/17 06/25/25 History calcium 600 mg (as 1,000 mg PO DAILY supplement 12/22/17 06/25/25 History carbonate)-vitamin D3 12.5 mcg (500 unit) capsule (Calcium with Vit D3) folic acid 400 mcg tablet 0.4 mg PO QDAY supplement 12/22/17 06/25/25 History lorazepam 0.5 mg tablet 0.5 mg PO TID PRN anxiety 12/22/17 07/30/25 History montelukast 10 mg tablet 10 mg PO QPM allergies 12/22/17 06/25/25 History vitamin B complex (B 1 tab PO QDAY supplement 12/22/17 06/25/25 History Complex-Vitamin B12 tablet) metoprolol succinate 50 mg 50 mg PO DAILY heart 06/20/23 07/30/25 History tablet,extended release 24 hr albuterol sulfate 90 mcg/actuation 2 puff inhalation Q6H PRN 05/05/25 07/30/25 History aerosol inhaler (Ventolin HFA) shortness of breath or wheezing apixaban 5 mg tablet (Eliquis) 5 mg PO BID blood thinner 05/05/25 07/25/25 History biotin 10,000 mcg chewable tablet 7,500 mcg PO DAILY supplement 05/05/25 06/25/25 History (Hair, Skin and Nails (biotin)) empagliflozin 10 mg tablet 5 mg PO QAM blood sugar 05/05/25 07/25/25 History (Jardiance) cholecalciferol (vitamin D3) 25 3,000 unit PO DAILY supplememt 06/03/25 06/25/25 History mcg (1,000 unit) tablet (PureVita Vitamin D3) loratadine 10 mg tablet (Claritin) 10 mg PO DAILY PRN allergy symptoms 06/03/25 Unknown History niacin 400 mg (inositol niacinate 1 cap PO BID supplement 06/03/25 06/25/25 History 500 mg) capsule (Niacin Flush Free) sucralfate 1 gram tablet (Carafate) 1 g PO QHS ulcers 06/03/25 06/25/25 History acetaminophen 650 mg 650 mg PO Q4H PRN PRN pain/fever 06/26/25 06/25/25 History tablet,extended release (Tylenol 8 Hour) cholestyramine 4 gram oral powder 2 g PO DAILY cholesterol 06/26/25 06/25/25 History (Cholestyramine Light) hydrocortisone 2.5 % topical cream 1 applic topical PRN itch 06/26/25 Unknown History insulin NPH isoph U-100 human 100 40 unit subcut DAILY blood sugar 06/26/25 06/26/25 History unit/mL subcutaneous suspension (Novolin N NPH U-100 Insulin isophane) loperamide 2 mg capsule 2 mg PO PRN diarrhea 06/26/25 Unknown History (Anti-Diarrheal (loperamide)) magnesium oxide 400 mg (241.3 mg 400 mg PO BID supplement 06/26/25 06/25/25 History magnesium) tablet metronidazole 0.75 % topical cream 1 applic topical BID rosacea 06/26/25 06/25/25 History nystatin 100,000 unit/gram topical 1 applic topical DAILY PRN rash 06/26/25 Unknown History powder (Nystop) ondansetron HCl 4 mg tablet 4 mg PO Q6H PRN nausea and vomiting 06/26/25 06/21/25 History pantoprazole 40 mg tablet,delayed 40 mg PO DAILY gerd 06/26/25 07/30/25 History release potassium chloride 20 mEq 20 meq PO BID supplement 06/26/25 06/25/25 History tablet,extended release(part/cryst) Allergy/AdvReac Type Severity Reaction Status Date / Time codeine Allergy Unknown Unknown Verified 07/30/25 10:37 hydrocodone (From [place]) Allergy Unknown Unknown Verified 07/30/25 10:37 Iodinated Contrast Media Allergy Unknown Unknown Verified 07/30/25 10:37 (Iodinated Contrast- Oral and IV Dye) morphine Allergy Unknown Unknown Verified 07/30/25 10:37 nitrofurantoin (From Allergy Unknown Unknown Verified 07/30/25 10:37 Macrodantin) tramadol Allergy Unknown Unknown Verified 07/30/25 10:37 Family History Mother Diabetes Hypertension Heart disease Hyperlipidemia Father Heart disease Diabetes Hyperlipidemia Daughter Seizures Sister CVA (cerebral vascular accident) Surgical History History of heart surgery History of partial colectomy History of cardiac radiofrequency ablation Hx of bilateral cataract extraction Hx of cardiac cath History of surgery on arm History of shoulder surgery Hx of breast surgery Hx of breast biopsy Hx of CABG Hx of hysterectomy Hx of cholecystectomy Hx of tubal ligation Social History Smoking Status: Former smoker second hand exposure: No alcohol intake: never substance use type: does not use caffeine: Yes what type of physical activity do you participate in: none frequency: does not exercise seatbelt use: always Addt'l Information Additional Findings: NS on EKG, Previous CABG x3 grafts no recent HF symptomes. Mobility limited by back pain. Took metoprolol Review of Systems (Anesthesia) ROS Narrative System reviewed and no additional complaints, except as documented. Physical Exam Const alert and oriented x3 Orientation / Consciousness: awake Nutritional Appearance: obese HEENT dentition normal Resp normal respiratory effort and normal air movement Auscultation: clear to auscultation bilaterally Cardio regular rate and regular rhythm Back/Spine normal ROM Neuro oriented x3 and moves all extremities
--- NOTE | 2025-07-30 11:30 | FLU_PTH ---
PATIENT: CARMEN HARVEY LOC: EN U#:[id number] AGE/SX: 79/F ROOM: RE07/30/[address]: Dr. Jose Gordillo DO : 1945 BED: DIS: 07/30/2025 SPEC #: [id number] RECD: 07/30/25 13:25 STATUS: RUTH REAsia #: [id number] PEE: 07/30/25 11:[address]: Jose Gordillo DEPT: CYTOLOGY RECD BY: Hang Colon ENTERED: 07/31/25 09:49 SP TYPE: Fluid OTHR DR: Sameera Shoemaker, MITCH Tissues: A - Biliary tract, NOS Procedures: Special Stain Group II Surgery Specimen Level IV Cytospin Fluid HEADER OPERATION: ERCP, sphincterotomy, dilation, brushings, stent insertion PRE-OP DIAGNOSIS: Choledocholithiasis TISSUE SUBMITTED: A- Biliary stricture brushings, brush tip, slides DIAGNOSIS CYTOLOGY A. Biliary stricture (cytospin, cellblock, smear x3): - No malignant cells identified. - Scant cellularity present. CYTOLOGY STUDY Slides are reviewed. CYTOLOGY GROSS A. Received is 1 brush tip with 0.5 ml of clear fluid with particles and 3 slides labeled with the patient's name and and designated per the requisition as Biliary stricture brushings, brush tip, slides. Submitted for cytology and cell block preparation. 07/31/2025 CPT: 41427,68601 ,[id number]
--- NOTE | 2025-07-30 12:09 | PCM.HP.STD ---
HPI - General General Date of Admission: 07/30/25 Date of Service: 07/30/25 Chief Complaint: Choledocholithiasis HPI Narrative NISHA HARVEY, is a 79 F who presents [Chief Complaint: Right upper quadrant pain History of diabetes and previous colectomy for diverticulitis Last office visit 05/15/2025 with Monica Costa V BELT COVERER for right upper quadrant and epigastric pain exacerbated by oral intake. Reports an unintentional weight loss. CBC suggestive of stool retention and possible gastritis. Recommendation to trial PPI and proceed with EGD EGD 06/05/2025 - Normal esophagus. - Medium-sized hiatal hernia. - Erythematous mucosa in the gastric body. Biopsied. - Erythematous duodenopathy. Colonoscopy 06/05/2025 - Patent end-to-side colo-colonic anastomosis. - Two 10 mm polyps in the sigmoid colon, removed with a hot snare. Resected and retrieved. - Diverticulosis in the rectum, in the recto-sigmoid colon, in the sigmoid colon, at the splenic flexure, at the hepatic flexure and in the ascending colon. - Congested mucosa in the terminal ileum. Biopsied. - Congested mucosa in the entire examined colon. Biopsied. Pathology: Gastric antrum antral oxyntic mucosa with chronic focal active inflammation and reactive changes negative for Helicobacter pylori. Terminal ileum no pathologic change. Colon no pathologic change. Sigmoid polyp tubular adenoma. Rectum hyperplastic polyp [facility] ED 06/26/2025 for right sided abdominal pain. Workup largely unremarkable. CT abdomen pelvis showing hiatal hernia, mild splenomegaly and multiple left renal cysts, and nonobstructive right intrarenal calculus. OV 07/01/2025 -diarrhea 5-6 times per day, liquid stool -lasted off an on for about 2 weeks -Has intermittent loose stool at baseline - Continues to have right upper quadrant pain [facility] Medical History Insulin dependent diabetes mellitus History of renal disease Back pain Difficulty swallowing Heartburn Gastric reflux History of pain when walking History of atrial fibrillation Wears glasses Post-menopausal History of steroid therapy Fatty liver High cholesterol Scoliosis Dietary restriction History of hiatal hernia History of Clostridium difficile infection History of diverticulitis Diverticulosis Former smoker CPAP (continuous positive airway pressure) dependence Hypertension Cardiology follow-up encounter History of echocardiogram History of stress test Diverticulitis Hx of Clostridium difficile infection Hemorrhoids Acid reflux Diarrhea Nausea Asthma Sleep apnea A-fib Heart disease Heart murmur Arthritis Back problem Diabetes Fatigue Home Medications ?Medication ?Instructions ?Recorded ?Last Taken ?Type ascorbic acid (vitamin C) 250 mg 500 mg PO QDAY supplement 12/22/17 06/25/25 History tablet atorvastatin 40 mg tablet 40 mg PO QDAY cholesterol 12/22/17 06/25/25 History calcium 600 mg (as 1,000 mg PO DAILY supplement 12/22/17 06/25/25 History carbonate)-vitamin D3 12.5 mcg (500 unit) capsule (Calcium with Vit D3) folic acid 400 mcg tablet 0.4 mg PO QDAY supplement 12/22/17 06/25/25 History lorazepam 0.5 mg tablet 0.5 mg PO TID PRN anxiety 12/22/17 07/30/25 History montelukast 10 mg tablet 10 mg PO QPM allergies 12/22/17 06/25/25 History vitamin B complex (B 1 tab PO QDAY supplement 12/22/17 06/25/25 History Complex-Vitamin B12 tablet) metoprolol succinate 50 mg 50 mg PO DAILY heart 06/20/23 07/30/25 History tablet,extended release 24 hr albuterol sulfate 90 mcg/actuation 2 puff inhalation Q6H PRN 05/05/25 07/30/25 History aerosol inhaler (Ventolin HFA) shortness of breath or wheezing apixaban 5 mg tablet (Eliquis) 5 mg PO BID blood thinner 05/05/25 07/25/25 History biotin 10,000 mcg chewable tablet 7,500 mcg PO DAILY supplement 05/05/25 06/25/25 History (Hair, Skin and Nails (biotin)) empagliflozin 10 mg tablet 5 mg PO QAM blood sugar 05/05/25 07/25/25 History (Jardiance) cholecalciferol (vitamin D3) 25 3,000 unit PO DAILY supplememt 06/03/25 06/25/25 History mcg (1,000 unit) tablet (PureVita Vitamin D3) loratadine 10 mg tablet (Claritin) 10 mg PO DAILY PRN allergy symptoms 06/03/25 Unknown History niacin 400 mg (inositol niacinate 1 cap PO BID supplement 06/03/25 06/25/25 History 500 mg) capsule (Niacin Flush Free) sucralfate 1 gram tablet (Carafate) 1 g PO QHS ulcers 06/03/25 06/25/25 History acetaminophen 650 mg 650 mg PO Q4H PRN PRN pain/fever 06/26/25 06/25/25 History tablet,extended release (Tylenol 8 Hour) cholestyramine 4 gram oral powder 2 g PO DAILY cholesterol 06/26/25 06/25/25 History (Cholestyramine Light) hydrocortisone 2.5 % topical cream 1 applic topical PRN itch 06/26/25 Unknown History insulin NPH isoph U-100 human 100 40 unit subcut DAILY blood sugar 06/26/25 06/26/25 History unit/mL subcutaneous suspension (Novolin N NPH U-100 Insulin isophane) loperamide 2 mg capsule 2 mg PO PRN diarrhea 06/26/25 Unknown History (Anti-Diarrheal (loperamide)) magnesium oxide 400 mg (241.3 mg 400 mg PO BID supplement 06/26/25 06/25/25 History magnesium) tablet metronidazole 0.75 % topical cream 1 applic topical BID rosacea 06/26/25 06/25/25 History nystatin 100,000 unit/gram topical 1 applic topical DAILY PRN rash 06/26/25 Unknown History powder (Nystop) ondansetron HCl 4 mg tablet 4 mg PO Q6H PRN nausea and vomiting 06/26/25 06/21/25 History pantoprazole 40 mg tablet,delayed 40 mg PO DAILY gerd 06/26/25 07/30/25 History release potassium chloride 20 mEq 20 meq PO BID supplement 06/26/25 06/25/25 History tablet,extended release(part/cryst) Allergy/AdvReac Type Severity Reaction Status Date / Time codeine Allergy Unknown Unknown Verified 07/30/25 10:37 hydrocodone (From [place]) Allergy Unknown Unknown Verified 07/30/25 10:37 Iodinated Contrast Media Allergy Unknown Unknown Verified 07/30/25 10:37 (Iodinated Contrast- Oral and IV Dye) morphine Allergy Unknown Unknown Verified 07/30/25 10:37 nitrofurantoin (From Allergy Unknown Unknown Verified 07/30/25 10:37 Macrodantin) tramadol Allergy Unknown Unknown Verified 07/30/25 10:37 Family History Mother Diabetes Hypertension Heart disease Hyperlipidemia Father Heart disease Diabetes Hyperlipidemia Daughter Seizures Sister CVA (cerebral vascular accident) Surgical History History of heart surgery History of partial colectomy History of cardiac radiofrequency ablation Hx of bilateral cataract extraction Hx of cardiac cath History of surgery on arm History of shoulder surgery Hx of breast surgery Hx of breast biopsy Hx of CABG Hx of hysterectomy Hx of cholecystectomy Hx of tubal ligation Social History Smoking Status: Former smoker second hand exposure: No alcohol intake: never substance use type: does not use caffeine: Yes what type of physical activity do you participate in: none frequency: does not exercise seatbelt use: always ROS Constitutional Constitutional: Denies fatigue, fever(s), poor appetite, weight gain or weight loss Gastrointestinal Gastrointestinal: Denies belching, bloating, change in bowel habits, change in stool character, chewing difficulty, coffee ground emesis, constipation, cramping, diarrhea, dyspepsia, dysphagia, early satiety, excessive flatus, fecal incontinence, heartburn, hematemesis, hematochezia, hemorrhoids, loose stools, melena, nausea, odynophagia, rectal bleeding, tenesmus, vomiting or weight changes Vital Signs Vital Signs Vital Signs: 07/30/25 10:39 07/30/25 10:39 07/30/25 10:57 Temperature 97.1 F L 97.1 F L Temperature Source Temporal Pulse Rate 77 77 Respiratory Rate 16 16 Respiratory Pattern Normal Blood Pressure 124/67 H 124/67 H Blood Pressure Mean 86 Blood Pressure Source Monitor Blood Pressure Position Semi-Fowlers Blood Pressure Location Right Arm Pulse Ox 100 100 Oxygen Delivery Method Room Air Room Air Weight Weight: 160 lb 14.999 oz Body Mass Index (BMI) 32.5 Physical Exam Const alert, oriented x3, no apparent distress and healthy appearing General Appearance: cooperative GI normal to inspection, nondistended, normoactive bowel sounds, soft to palpation, non-tender and non-distended Percussion: normal to percussion Rectal Exam: deferred Results Lab / Micro Data Labs: Laboratory Results - last 24 hr 07/30/25 10:44: POC Glucose 193 H Assessment & Plan Assessment/Plan (1) Elevated bilirubin: (2) RUQ pain: PLAN: Assessment and Plan Assessment and Plan (1) RUQ pain: Status: Acute (2) Weight loss: Status: Acute (3) Loose stools: Status: Acute (4) Elevated bilirubin: Status: Acute Plan: Nisha is a 79-year-old female patient with past medical history of diabetes, status post colon resection due to diverticulitis, status post cholecystectomy, A-fib, asthma and sleep apnea here today for hospital follow-up. Patient seen in the ED recently due to right upper quadrant pain and diarrhea after her colonoscopy. Patient at baseline does have frequent diarrhea but this was much worse. Workup was largely unremarkable. With increase of frequency of diarrhea after colonoscopy I think this was her bowels readjusting. I recommended adding a daily fiber supplement and taking cholestyramine as needed. Cholestyramine has made her constipated in the past. Will order stool testing with calprotectin and fecal elastase since she does have intermittent loose stool. Regarding her right upper quadrant pain, she did have a mildly elevated bilirubin in the ED and slightly elevated alk phos. Will order MRCP to evaluate her bile ducts and repeat blood work. - Stool testing - Repeat CBC and CMP - MRCP - Follow-up after testing Note: Portions of this note may have been selectively carried forward from previous documentation to ensure continuity and accuracy of the clinical record. All imported information has been reviewed and updated as necessary to reflect the current patient status, findings, and clinical decision-making for this encounter. [employer] speech recognition transcription specialist software was used to create portions of this document. Sound alike and misspelled words, as well as other transcription specialist errors may be contained in the docume ]
--- NOTE | 2025-07-30 12:30 | RAD_ITS ---
PROCEDURE: ERCP BILIARY/PANCREAS; O.R. FLUORO FOR C-ARM 07/30/2025 REASON FOR EXAM: ERCP TECHNIQUE: Procedure Code: RADERCP; RADORFL_C_ARM Modality: DX Procedure: ERCP BILIARY/PANCREAS; O.R. FLUORO FOR C-ARM. Fluoroscopy time: 52.3 seconds. Dose: 17.33 mGy. RAD/ERCP Biliary/Pancreas IMPRESSION: Intraoperative fluoroscopy was performed for ERCP. 5 fluoroscopic images were also obtained. Reading Location: [id number]
--- NOTE | 2025-07-30 12:30 | RAD_ITS ---
PROCEDURE: ERCP BILIARY/PANCREAS; O.R. FLUORO FOR C-ARM 07/30/2025 REASON FOR EXAM: ERCP TECHNIQUE: Procedure Code: RADERCP; RADORFL_C_ARM Modality: DX Procedure: ERCP BILIARY/PANCREAS; O.R. FLUORO FOR C-ARM. Fluoroscopy time: 52.3 seconds. Dose: 17.33 mGy. RAD/O.R. Fluoro for C-Arm IMPRESSION: Intraoperative fluoroscopy was performed for ERCP. 5 fluoroscopic images were also obtained. Reading Location: [id number]
[2025-07-30] MEDS: DiphenhydrAMINE 50 MG/ML Syringe 25 MG IV (12:33)
[2025-07-30] MEDS: Midazolam 2 MG/2 ML Syringe IV (12:52)
[2025-07-30] MEDS: Lactated Ringers 2,000 ML 2000 ML IV (13:04)
--- NOTE | 2025-07-30 13:21 | OP.ERCP_ITS ---
Patient Name: Nisha Esparza Procedure Date: 07/30/2025 10:48 AM Date of : 1945 Age: 79 Procedure: ERCP Indications: Bile duct stone(s) Providers: Jose Gordillo DO Referring MD: Liu Olson Medicines: Monitored Anesthesia Care Patient Profile: This is a 79 year old female. Refer to note in patient chart for documentation of history and physical. Patient has symptoms of acute right upper quadrant abdominal pain. This patient has no history of previous ERCP. She is status post laparoscopic cholecystectomy. Complications: No immediate complications. Procedure: Pre-Anesthesia Assessment: - Prior to the procedure, a History and Physical was performed, and patient medications and allergies were reviewed. The patient is competent. The risks and benefits of the procedure and the sedation options and risks were discussed with the patient. All questions were answered and informed consent was obtained. Patient identification and proposed procedure were verified by the physician in the pre-procedure area. Mental Status Examination: alert and oriented. Airway Examination: normal oropharyngeal airway and neck mobility. Respiratory Examination: clear to auscultation. CV Examination: normal. Prophylactic Antibiotics: The patient does not require prophylactic antibiotics. Prior Anticoagulants: The patient has taken no anticoagulant or antiplatelet agents except for NSAID medication. ASA Grade Assessment: II - A patient with mild systemic disease. After reviewing the risks and benefits, the patient was deemed in satisfactory condition to undergo the procedure. The anesthesia plan was to use monitored anesthesia care (MAC). Immediately prior to administration of medications, the patient was re-assessed for adequacy to receive sedatives. The heart rate, respiratory rate, oxygen saturations, blood pressure, adequacy of pulmonary ventilation, and response to care were monitored throughout the procedure. The physical status of the patient was re-assessed after the procedure. After obtaining informed consent, the scope was passed under direct vision. Throughout the procedure, the patient's blood pressure, pulse, and oxygen saturations were monitored continuously. The Duodenoscope was introduced through the mouth, and advanced to the duodenum and used to inject contrast into the bile duct. The ERCP was accomplished without difficulty. The patient tolerated the procedure well. Scope In: 12:52:16 PM Scope Out: 1:10:04 PM Total Procedure Duration Time 0 hours 17 minutes 48 seconds Findings: The supervisor toy assembly film was normal. The esophagus was successfully intubated under direct vision. The scope was advanced to a normal major papilla in the descending duodenum without detailed examination of the pharynx, larynx and associated structures, and upper GI tract. The upper GI tract was grossly normal. A long 0.025 inch Jagwire was passed into the biliary tree. The short-nosed traction sphincterotome was passed over the guidewire and the bile duct was then deeply cannulated. Contrast was injected. I personally interpreted the bile duct images. Ductal flow of contrast was adequate. Image quality was adequate. Contrast extended to the entire biliary tree. The lower third of the main bile duct contained filling defect(s) thought to be a stone and sludge. A 5 mm biliary sphincterotomy was made with a braided traction (standard) sphincterotome using ERBE electrocautery. There was no post-sphincterotomy bleeding. The biliary tree was swept with a 12 mm balloon starting at the right intrahepatic duct(s). Sludge was swept from the duct. All stones were removed. Cells for cytology were obtained by brushing in the right intrahepatic branches. One 10 Fr by 5 cm temporary stent was placed 5 cm into the common bile duct. Bile flowed through the stent. The stent was in good position. Impression: - A filling defect consistent with a stone and sludge was seen on the cholangiogram. - Choledocholithiasis was found. Complete removal was accomplished by biliary sphincterotomy and balloon extraction. - A biliary sphincterotomy was performed. - The biliary tree was swept. - Cells for cytology obtained in the right intrahepatic branches. - One temporary stent was placed into the common bile duct. Procedure Code(s): --- Professional --- 98985, Endoscopic retrograde cholangiopancreatography (ERCP); with placement of endoscopic stent into biliary or pancreatic duct, including pre- and post-dilation and guide wire passage, when performed, including sphincterotomy, when performed, each stent [id number], Endoscopic retrograde cholangiopancreatography (ERCP); with removal of calculi/debris from biliary/pancreatic duct(s) 32380, 26, Endoscopic catheterization of the biliary ductal system, radiological supervision and interpretation CPT copyright 2021 [employer]. All rights reserved. The codes documented in this report are preliminary and upon flexographic printing press operator review may be revised to meet current compliance requirements. Jose Gordillo DO 07/30/2025 1:21:31 PM This report has been signed electronically. Number of Addenda: 0 Note Initiated On: 07/30/2025 10:48 AM
--- NOTE | 2025-07-30 13:22 | OP.PROVAT_ITS ---
07/30/2025 Liu Olson Re : ERCP procedure for Nisha Esparza [facility] [place] This procedure was performed on Wednesday, July 30, 2025. My impressions and recommendations are as follows: Impressions : - A filling defect consistent with a stone and sludge was seen on the cholangiogram. - Choledocholithiasis was found. Complete removal was accomplished by biliary sphincterotomy and balloon extraction. - A biliary sphincterotomy was performed. - The biliary tree was swept. - Cells for cytology obtained in the right intrahepatic branches. - One temporary stent was placed into the common bile duct. Recommendations : My findings are described in the full procedure note, which is enclosed. If I can be of further assistance, please feel free to contact me at . Sincerely, Jose Gordillo, 07/30/2025 1:21:31 PM This report has been signed electronically.
--- NOTE | 2025-07-30 13:33 | PCM.POST.ANE ---
Anesthesia: Postop Eval I Current Vital Signs Temperature: 98.2 F Pulse Rate: 71 Blood Pressure: 142/73 Respiratory Rate: 17 Pulse Ox: 97 Oxygen Delivery Method: Room Air Assessment Airway patent: Yes Spontaneous unlabored respirations: Yes Mental status: Awake nausea: No Vomiting: No Anesthesia Complication: No Fluid Hydration Crystalloid volume administer (ml): 2,000 Total IV fluid infused: 2,000 Progress Note Anesthesia document: Postop Eval 1 completed: Yes
[2025-07-30] MEDS: Lactated Ringers 1,000 ML 999 ML IV ×2 (14:06→15:23)
--- NOTE | 2025-07-30 14:28 | POSTOPAN2_ITS ---
Anesthesia Postop Eval I Sum Postop Eval Completion status Anesthesia document: Postop Eval 1 completed: Yes Anesthesia Postop Eval I Summary Anesthesia Postop Eval I Summary: Anesthesia Postop Eval I: Assessment Summary Airway patent Yes 07/30/25 13:34 FILE SYSTEM [email or web address] Spontaneous unlabored Yes 07/30/25 13:34 FILE SYSTEM [email or web address] respirations Mental status Awake 07/30/25 13:34 FILE SYSTEM [email or web address] nausea No 07/30/25 13:34 FILE [email or web address] Vomiting No 07/30/25 13:34 FILE [email or web address] Anesthesia Postop Eval I: Fluid Summary Crystalloid volume administer 2,000 07/30/25 13:34 FILE SYSTEM [email or web address] (ml) Colloids volume administered ( ml) Blood Product volume administered (ml) Total IV fluid infused 2,000 07/30/25 13:34 FILE [email or web address] Anesthesia Postop Eval I: Summary Notes Anesthesia Complication No 07/30/25 13:34 FILE [email or web address] Anesthesia Complication Comment: Post-operative progress note Anesthesia: Postop Eval II Evaluation Mental status: Awake and Calm Pain Level: 0 nausea: No Vomiting: No Complications Anesthesia Complication: No
--- NOTE | 2025-07-30 14:28 | PCM.POSTANE2 ---
Anesthesia Postop Eval I Sum Postop Eval Completion status Anesthesia document: Postop Eval 1 completed: Yes Anesthesia Postop Eval I Summary Anesthesia Postop Eval I Summary: Anesthesia Postop Eval I: Assessment Summary Airway patent Yes 07/30/25 13:34 [email or web address] Spontaneous unlabored Yes 07/30/25 13:34 [email or web address] respirations Mental status Awake 07/30/25 13:34 [email or web address] nausea No 07/30/25 13:34 [email or web address] Vomiting No 07/30/25 13:34 [email or web address] Anesthesia Postop Eval I: Fluid Summary Crystalloid volume administer 2,000 07/30/25 13:34 [email or web address] (ml) Colloids volume administered ( ml) Blood Product volume administered (ml) Total IV fluid infused 2,000 07/30/25 13:34 [email or web address] Anesthesia Postop Eval I: Summary Notes Anesthesia Complication No 07/30/25 13:34 [email or web address] Anesthesia Complication Comment: Post-operative progress note Anesthesia: Postop Eval II Evaluation Mental status: Awake and Calm Pain Level: 0 nausea: No Vomiting: No Complications Anesthesia Complication: No
--- NOTE | 2025-07-30 15:25 | SUR.PHASEII ---
pt to have total of 3000L lr per Dr jenkins
== END 2025-07-30 17:03 | disposition home or self-care (01) ==
LOC: EN 10:16 → AC 10:18
PROVIDERS: PCP Nurse Practitioner Primary Care; Referring Provider Nurse Practitioner Primary Care; Visit Provider Internal Medicine Gastroenterology
PROC: (CPT 43260; principal; 2025-07-30 11:10)
DX: K80.50 Calculus of bile duct without cholangitis or cholecystitis without obstruction (principal); I48.91 Unspecified atrial fibrillation; E11.9 Type 2 diabetes mellitus without complications; E78.00 Pure hypercholesterolemia, unspecified; I10 Essential (primary) hypertension; Z87.891 Personal history of nicotine dependence; K21.9 Gastro-esophageal reflux disease without esophagitis; Z79.84 Long term (current) use of oral hypoglycemic drugs; Z90.49 Acquired absence of other specified parts of digestive tract; Z79.01 Long term (current) use of anticoagulants; Z79.899 Other long term (current) drug therapy; J45.909 Unspecified asthma, uncomplicated
CPT/HCPCS: 43274; 43264; 00732; 74330; 76000; 82962; 88108; 88305; 88313; 93005; C2625; J2405